=== PATIENT | male | born 1960 | race Caucasian/White ===

== ENCOUNTER 2016-08-16 12:37 | Outpatient (RCR) | payer MEDICAID ==
--- OUTSIDE RECORDS SUMMARY | 2016-05-24 11:21 | XMS REPORT | Continuity of Care Document ---
Author Author [facility] Organization [facility] Address Unknown Phone Unavailable Care Team Providers Care Storage Battery Inspector And Tester Name Role Phone Self, James PCP [phone] Source Comments Some departments are not documenting in the electronic medical record. If you do not see the information that you expected, contact Release of Information in the Health Information Management department at [phone] for further assistance in locating additional records.[facility] Active Allergies and Adverse Reactions Allergen Noted Date Severity Reactions Comments Morphine 09/25/2012 STOMACH UPSET Motrin 04/03/2015 Low NAUSEA ONLY Nitroglycerin 09/25/2012 EDEMA Throat closing Current Medications Prescription Sig. Disp. Refills Start End Date Status Date phenytoin SR (DILANTIN Take 200 mg by mouth Active EXTENDED) 100 mg capsule twice daily. clopiDOGrel (PLAVIX) 75 Take 75 mg by mouth Active mg tablet daily. atorvastatin (LIPITOR) 40 Take 40 mg by mouth Active mg tablet daily. HYDROcodone/acetaminophen Take 1 Tab by mouth every 12/01/19 Active (+) (LORTAB, NORCO) 4 hours as needed For 16 10/325 mg tablet Pain OLANZapine (ZYPREXA) 10 Take 1 Tab by mouth at 30 Tab 11 12/02/19 Active mg tablet bedtime daily. 16 Indications: SCHIZOPHRENIA terbinafine (LAMISIL) 250 Take 250 mg by mouth Active mg tablet daily. CYCLOBENZAPRINE HCL Take by mouth. Active (FLEXERIL PO) Active Problems Problem Noted Date Dysphagia, pharyngoesophageal phase 12/18/2013 Laryngopharyngeal reflux 12/18/2013 Schizophrenia, paranoid type (HCC) 04/21/2013 Seizure disorder (HCC) 04/17/2013 Overview: Follows with neurology Osteopenia 12/17/2012 Congestion 09/25/2012 Chronic sinusitis 09/25/2012 Tinnitus 09/25/2012 Hearing loss 09/25/2012 Most Recent Encounters Date Type Specialty Providers Description 02/25/2016 [facility] Taylor Bender MD Other development expert (current) Encounter drug therapy Social History Tobacco Use Types Packs/Day Years Used Date Current Every Day Smoker Cigarettes 1.5 37 Smokeless Tobacco: Former User Tobacco Cessation: Ready to Quit: Yes; Counseling Given: Yes Comments: Continues 1.5 PPD, is planning on coming down Alcohol Use Drinks/Week oz/Week Comments No 0 Standard 0.0 drinks or equivalent Last Filed Vital Signs Vital Sign Reading Time Taken Blood Pressure 125/79 02/25/2016 11:02 AM CDT Pulse 97 02/25/2016 11:02 AM CDT Temperature 36.3 C (97.3 F) 10/16/2015 1:32 PM AED TRAINER Respiratory Rate 15 02/25/2016 11:02 AM CDT Height 1.829 m (6') 02/25/2016 11:02 AM CDT Weight 60.328 kg (133 lb) 02/25/2016 11:02 AM CDT Body Mass Index 18.03 02/25/2016 11:02 AM CDT Oxygen Saturation 97% 10/16/2015 1:32 PM AED TRAINER Plan of Care Health Maintenance Due Date Last Done Comments Hepatitis C Screening 1960 Physical (Comprehensive) 1968 Exam Pertussis Vaccine 1972 Tetanus Vaccine 1978 Colorectal Cancer 12/08/2011 Screening Influenza Vaccine 04/07/2016 Results from Last 3 Months HEMOGLOBIN A1C (02/25/2016 12:16 PM) Component Value Range Hemoglobin A1C 5.3Comment: 4.0-6.0 % The ADA recommends that most patients with type 1 and type 2 diabetes maintain an A1c level <7%. Specimen Blood LIPID PROFILE (02/25/2016 12:16 PM) Component Value Range Cholesterol 148 <200 MG/DL Triglycerides 164 (H) <150 MG/DL HDL 38 (L) >40 MG/DL LDL 82 <100 MG/DL VLDL 33 MG/DL Non HDL Cholesterol 110Comment: MG/DL Calculated non-HDL Cholesterol (non-HDL-C) indirectly measures LDL-C, Lp(a), IDL-C, and VLDL-C. It is a surrogate marker for Apoprotein B. Non-HDL-C is a more accurate measure of atherogenic particle concentration than LDL-C in patients with hypertriglyceridemia (>200 mg/dL). This calculation is now recommended for evaluation and treatment of coronary heart disease according to the National Cholesterol Education Program Adult Treatment Protocol-III. See Cortez et al. Am J. Cardiol. 2008, 101:8042-5792. The "goal" should be less than 130 mg/dL, but will vary according to risk factors. Specimen Blood
[2016-05-24 11:52] LABS: BASOPHILS % (AUTO) 0 % (0-10); EOSINOPHILS # (AUTO) 0.2 10^3/uL (0.0-0.3); EOSINOPHILS % (AUTO) 2 % (0-10); LYMPHOCYTES # (AUTO) 1.3 X 10^3 (1.0-4.0); LYMPHOCYTES % (AUTO) 14 % (12-44); MEAN CORPUSCULAR HEMOGLOBIN 31 PG (25-34); MEAN CORPUSCULAR HGB CONC 33 G/DL (32-36); MEAN CORPUSCULAR VOLUME 94 FL (80-99); MEAN PLATELET VOLUME 8.5 FL (7.4-10.4); MONOCYTES # (AUTO) 0.8 X 10^3 (0.0-1.0); MONOCYTES % (AUTO) 9 % (0-12); NEUTROPHILS # (AUTO) 6.8 X 10^3 (1.8-7.8); NEUTROPHILS % (AUTO) 75 % (42-75); PLATELET COUNT 339 10^3/uL (130-400); RED BLOOD COUNT 3.61 10^6/uL (4.35-5.85); WHITE BLOOD COUNT 9.1 10^3/uL (4.3-11.0)
[2016-05-24 12:20] LABS: ALANINE AMINOTRANSFERASE 9 U/L (0-55); ALBUMIN 3.7 G/DL (3.2-4.5); ANION GAP 9 MMOL/L (5-14); ASPARTATE AMINO TRANSFERASE 8 U/L (5-34); BILIRUBIN,TOTAL 0.2 MG/DL (0.1-1.0); BLOOD UREA NITROGEN 13 MG/DL (7-18); BUN/CREATININE RATIO 16; CALCIUM 9.2 MG/DL (8.5-10.1); CARBON DIOXIDE 25 MMOL/L (21-32); CHLORIDE 106 MMOL/L (98-107); CREATININE SERUM 0.81 MG/DL (0.60-1.30); GFR ESTIMATED > 60; GLUCOSE 100 MG/DL (70-105); MAGNESIUM 1.9 MG/DL (1.8-2.4); POTASSIUM 4.2 MMOL/L (3.6-5.0); SODIUM 140 MMOL/L (135-145); TOTAL PROTEIN 7.1 G/DL (6.4-8.2)
[2016-05-31 11:55] LABS: BASOPHILS % (AUTO) 0 % (0-10); EOSINOPHILS # (AUTO) 0.1 10^3/uL (0.0-0.3); EOSINOPHILS % (AUTO) 1 % (0-10); LYMPHOCYTES # (AUTO) 0.8 X 10^3 (1.0-4.0); LYMPHOCYTES % (AUTO) 8 % (12-44); MEAN CORPUSCULAR HEMOGLOBIN 31 PG (25-34); MEAN CORPUSCULAR HGB CONC 33 G/DL (32-36); MEAN CORPUSCULAR VOLUME 93 FL (80-99); MEAN PLATELET VOLUME 8.5 FL (7.4-10.4); MONOCYTES # (AUTO) 0.5 X 10^3 (0.0-1.0); MONOCYTES % (AUTO) 5 % (0-12); NEUTROPHILS # (AUTO) 8.5 X 10^3 (1.8-7.8); NEUTROPHILS % (AUTO) 85 % (42-75); PLATELET COUNT 332 10^3/uL (130-400); RED BLOOD COUNT 3.54 10^6/uL (4.35-5.85); RED CELL DISTRIBUTION WIDTH 14.7 % (10.0-14.5); WHITE BLOOD COUNT 9.9 10^3/uL (4.3-11.0)
[2016-05-31 12:19] LABS: ANION GAP 9 MMOL/L (5-14); BLOOD UREA NITROGEN 10 MG/DL (7-18); BUN/CREATININE RATIO 14; CALCIUM 8.5 MG/DL (8.5-10.1); CARBON DIOXIDE 24 MMOL/L (21-32); CHLORIDE 105 MMOL/L (98-107); CREATININE SERUM 0.69 MG/DL (0.60-1.30); GFR ESTIMATED > 60; GLUCOSE 159 MG/DL (70-105); MAGNESIUM 1.8 MG/DL (1.8-2.4); POTASSIUM 3.7 MMOL/L (3.6-5.0); SODIUM 138 MMOL/L (135-145)
[2016-06-07 13:05] LABS: BASOPHILS % (AUTO) 1 % (0-10); EOSINOPHILS # (AUTO) 0.2 10^3/uL (0.0-0.3); EOSINOPHILS % (AUTO) 4 % (0-10); LYMPHOCYTES # (AUTO) 1.5 X 10^3 (1.0-4.0); LYMPHOCYTES % (AUTO) 25 % (12-44); MEAN CORPUSCULAR HEMOGLOBIN 31 PG (25-34); MEAN CORPUSCULAR HGB CONC 34 G/DL (32-36); MEAN CORPUSCULAR VOLUME 92 FL (80-99); MEAN PLATELET VOLUME 8.1 FL (7.4-10.4); MONOCYTES # (AUTO) 0.7 X 10^3 (0.0-1.0); MONOCYTES % (AUTO) 11 % (0-12); NEUTROPHILS # (AUTO) 3.5 X 10^3 (1.8-7.8); NEUTROPHILS % (AUTO) 59 % (42-75); PLATELET COUNT 424 10^3/uL (130-400); RED BLOOD COUNT 3.35 10^6/uL (4.35-5.85); RED CELL DISTRIBUTION WIDTH 14.2 % (10.0-14.5); WHITE BLOOD COUNT 5.9 10^3/uL (4.3-11.0)
[2016-06-07 13:38] LABS: ANION GAP 10 MMOL/L (5-14); BLOOD UREA NITROGEN 10 MG/DL (7-18); BUN/CREATININE RATIO 17; CALCIUM 8.6 MG/DL (8.5-10.1); CARBON DIOXIDE 23 MMOL/L (21-32); CHLORIDE 106 MMOL/L (98-107); CREATININE SERUM 0.59 MG/DL (0.60-1.30); GFR ESTIMATED > 60; GLUCOSE 73 MG/DL (70-105); POTASSIUM 3.5 MMOL/L (3.6-5.0); SODIUM 139 MMOL/L (135-145)
[2016-06-14 13:35] LABS: BASOPHILS % (AUTO) 0 % (0-10); EOSINOPHILS # (AUTO) 0.2 10^3/uL (0.0-0.3); EOSINOPHILS % (AUTO) 3 % (0-10); LYMPHOCYTES # (AUTO) 1.2 X 10^3 (1.0-4.0); LYMPHOCYTES % (AUTO) 17 % (12-44); MEAN CORPUSCULAR HEMOGLOBIN 30 PG (25-34); MEAN CORPUSCULAR HGB CONC 33 G/DL (32-36); MEAN CORPUSCULAR VOLUME 92 FL (80-99); MONOCYTES # (AUTO) 0.6 X 10^3 (0.0-1.0); MONOCYTES % (AUTO) 8 % (0-12); NEUTROPHILS % (AUTO) 71 % (42-75); PLATELET COUNT 460 10^3/uL (130-400); RED BLOOD COUNT 3.63 10^6/uL (4.35-5.85); RED CELL DISTRIBUTION WIDTH 14.5 % (10.0-14.5); WHITE BLOOD COUNT 6.9 10^3/uL (4.3-11.0)
[2016-06-14 14:02] LABS: ANION GAP 11 MMOL/L (5-14); BLOOD UREA NITROGEN 12 MG/DL (7-18); BUN/CREATININE RATIO 17; CALCIUM 8.8 MG/DL (8.5-10.1); CARBON DIOXIDE 21 MMOL/L (21-32); CHLORIDE 104 MMOL/L (98-107); CREATININE SERUM 0.69 MG/DL (0.60-1.30); GFR ESTIMATED > 60; GLUCOSE 166 MG/DL (70-105); POTASSIUM 3.7 MMOL/L (3.6-5.0); SODIUM 136 MMOL/L (135-145)
[2016-06-28 10:30] LABS: BASOPHILS % (AUTO) 1 % (0-10); EOSINOPHILS # (AUTO) 0.1 10^3/uL (0.0-0.3); EOSINOPHILS % (AUTO) 2 % (0-10); LYMPHOCYTES # (AUTO) 0.9 X 10^3 (1.0-4.0); LYMPHOCYTES % (AUTO) 16 % (12-44); MEAN CORPUSCULAR HEMOGLOBIN 30 PG (25-34); MEAN CORPUSCULAR HGB CONC 33 G/DL (32-36); MEAN CORPUSCULAR VOLUME 93 FL (80-99); MONOCYTES % (AUTO) 17 % (0-12); NEUTROPHILS # (AUTO) 3.8 X 10^3 (1.8-7.8); NEUTROPHILS % (AUTO) 65 % (42-75); PLATELET COUNT 319 10^3/uL (130-400); RED BLOOD COUNT 3.78 10^6/uL (4.35-5.85); RED CELL DISTRIBUTION WIDTH 14.9 % (10.0-14.5); WHITE BLOOD COUNT 5.8 10^3/uL (4.3-11.0)
[2016-06-28 10:53] LABS: ALANINE AMINOTRANSFERASE 8 U/L (0-55); ALBUMIN 3.8 G/DL (3.2-4.5); ANION GAP 6 MMOL/L (5-14); ASPARTATE AMINO TRANSFERASE 13 U/L (5-34); BILIRUBIN,TOTAL 0.2 MG/DL (0.1-1.0); BLOOD UREA NITROGEN 12 MG/DL (7-18); BUN/CREATININE RATIO 17; CALCIUM 9.1 MG/DL (8.5-10.1); CARBON DIOXIDE 26 MMOL/L (21-32); CHLORIDE 105 MMOL/L (98-107); CREATININE SERUM 0.69 MG/DL (0.60-1.30); GFR ESTIMATED > 60; GLUCOSE 96 MG/DL (70-105); MAGNESIUM 1.9 MG/DL (1.8-2.4); POTASSIUM 4.5 MMOL/L (3.6-5.0); SODIUM 137 MMOL/L (135-145); TOTAL PROTEIN 6.7 G/DL (6.4-8.2)
[2016-07-11 13:20] LABS: BASOPHILS # (AUTO) 0.1 10^3/uL (0.0-0.1); BASOPHILS % (AUTO) 1 % (0-10); EOSINOPHILS # (AUTO) 0.4 10^3/uL (0.0-0.3); EOSINOPHILS % (AUTO) 5 % (0-10); LYMPHOCYTES # (AUTO) 1.4 X 10^3 (1.0-4.0); LYMPHOCYTES % (AUTO) 17 % (12-44); MEAN CORPUSCULAR HEMOGLOBIN 31 PG (25-34); MEAN CORPUSCULAR HGB CONC 33 G/DL (32-36); MEAN CORPUSCULAR VOLUME 91 FL (80-99); MONOCYTES % (AUTO) 12 % (0-12); NEUTROPHILS # (AUTO) 5.6 X 10^3 (1.8-7.8); NEUTROPHILS % (AUTO) 67 % (42-75); PLATELET COUNT 287 10^3/uL (130-400); RED BLOOD COUNT 3.83 10^6/uL (4.35-5.85); WHITE BLOOD COUNT 8.4 10^3/uL (4.3-11.0)
[2016-07-11 13:43] LABS: ALANINE AMINOTRANSFERASE 10 U/L (0-55); ALBUMIN 3.6 G/DL (3.2-4.5); ANION GAP 9 MMOL/L (5-14); ASPARTATE AMINO TRANSFERASE 16 U/L (5-34); BLOOD UREA NITROGEN 12 MG/DL (7-18); BUN/CREATININE RATIO 18; CALCIUM 8.7 MG/DL (8.5-10.1); CARBON DIOXIDE 22 MMOL/L (21-32); CHLORIDE 109 MMOL/L (98-107); CREATININE SERUM 0.68 MG/DL (0.60-1.30); GFR ESTIMATED > 60; GLUCOSE 99 MG/DL (70-105); MAGNESIUM 1.9 MG/DL (1.8-2.4); POTASSIUM 4.2 MMOL/L (3.6-5.0); SODIUM 140 MMOL/L (135-145); TOTAL PROTEIN 6.6 G/DL (6.4-8.2)
[2016-07-11 14:33] LABS: BILIRUBIN,TOTAL 0.2 MG/DL (0.1-1.0)
[2016-07-18 13:34] LABS: BASOPHILS % (AUTO) 0 % (0-10); EOSINOPHILS # (AUTO) 0.3 10^3/uL (0.0-0.3); EOSINOPHILS % (AUTO) 4 % (0-10); LYMPHOCYTES # (AUTO) 1.1 X 10^3 (1.0-4.0); LYMPHOCYTES % (AUTO) 14 % (12-44); MEAN CORPUSCULAR HEMOGLOBIN 31 PG (25-34); MEAN CORPUSCULAR HGB CONC 34 G/DL (32-36); MEAN CORPUSCULAR VOLUME 92 FL (80-99); MONOCYTES # (AUTO) 0.8 X 10^3 (0.0-1.0); MONOCYTES % (AUTO) 10 % (0-12); NEUTROPHILS # (AUTO) 5.7 X 10^3 (1.8-7.8); NEUTROPHILS % (AUTO) 72 % (42-75); PLATELET COUNT 303 10^3/uL (130-400); RED BLOOD COUNT 3.63 10^6/uL (4.35-5.85); WHITE BLOOD COUNT 7.9 10^3/uL (4.3-11.0)
[2016-07-18 13:58] LABS: ANION GAP 9 MMOL/L (5-14); BLOOD UREA NITROGEN 16 MG/DL (7-18); BUN/CREATININE RATIO 24; CALCIUM 8.8 MG/DL (8.5-10.1); CARBON DIOXIDE 22 MMOL/L (21-32); CHLORIDE 106 MMOL/L (98-107); CREATININE SERUM 0.68 MG/DL (0.60-1.30); GFR ESTIMATED > 60; GLUCOSE 92 MG/DL (70-105); SODIUM 137 MMOL/L (135-145)
[2016-07-25 11:11] LABS: BASOPHILS % (AUTO) 1 % (0-10); EOSINOPHILS # (AUTO) 0.3 10^3/uL (0.0-0.3); EOSINOPHILS % (AUTO) 4 % (0-10); LYMPHOCYTES # (AUTO) 1.2 X 10^3 (1.0-4.0); LYMPHOCYTES % (AUTO) 19 % (12-44); MEAN CORPUSCULAR HEMOGLOBIN 30 PG (25-34); MEAN CORPUSCULAR HGB CONC 33 G/DL (32-36); MEAN CORPUSCULAR VOLUME 91 FL (80-99); MEAN PLATELET VOLUME 8.2 FL (7.4-10.4); MONOCYTES # (AUTO) 0.8 X 10^3 (0.0-1.0); MONOCYTES % (AUTO) 13 % (0-12); NEUTROPHILS % (AUTO) 63 % (42-75); PLATELET COUNT 355 10^3/uL (130-400); RED BLOOD COUNT 3.44 10^6/uL (4.35-5.85); RED CELL DISTRIBUTION WIDTH 13.8 % (10.0-14.5); WHITE BLOOD COUNT 6.3 10^3/uL (4.3-11.0)
[2016-07-25 11:34] LABS: ANION GAP 7 MMOL/L (5-14); BLOOD UREA NITROGEN 7 MG/DL (7-18); BUN/CREATININE RATIO 10; CALCIUM 8.2 MG/DL (8.5-10.1); CARBON DIOXIDE 23 MMOL/L (21-32); CHLORIDE 109 MMOL/L (98-107); CREATININE SERUM 0.71 MG/DL (0.60-1.30); GFR ESTIMATED > 60; GLUCOSE 94 MG/DL (70-105); SODIUM 139 MMOL/L (135-145)
[2016-08-09 11:14] LABS: BASOPHILS % (AUTO) 0 % (0-10); EOSINOPHILS # (AUTO) 0.2 10^3/uL (0.0-0.3); EOSINOPHILS % (AUTO) 3 % (0-10); LYMPHOCYTES # (AUTO) 1.3 X 10^3 (1.0-4.0); LYMPHOCYTES % (AUTO) 21 % (12-44); MEAN CORPUSCULAR HEMOGLOBIN 30 PG (25-34); MEAN CORPUSCULAR HGB CONC 33 G/DL (32-36); MEAN CORPUSCULAR VOLUME 91 FL (80-99); MEAN PLATELET VOLUME 8.2 FL (7.4-10.4); MONOCYTES # (AUTO) 0.9 X 10^3 (0.0-1.0); MONOCYTES % (AUTO) 14 % (0-12); NEUTROPHILS # (AUTO) 3.9 X 10^3 (1.8-7.8); NEUTROPHILS % (AUTO) 62 % (42-75); PLATELET COUNT 399 10^3/uL (130-400); RED BLOOD COUNT 4.06 10^6/uL (4.35-5.85); RED CELL DISTRIBUTION WIDTH 14.9 % (10.0-14.5); WHITE BLOOD COUNT 6.2 10^3/uL (4.3-11.0)
[2016-08-09 11:47] LABS: ALANINE AMINOTRANSFERASE 10 U/L (0-55); ALBUMIN 3.7 G/DL (3.2-4.5); ANION GAP 12 MMOL/L (5-14); ASPARTATE AMINO TRANSFERASE 12 U/L (5-34); BILIRUBIN,TOTAL 0.2 MG/DL (0.1-1.0); BLOOD UREA NITROGEN 6 MG/DL (7-18); BUN/CREATININE RATIO 8; CALCIUM 8.4 MG/DL (8.5-10.1); CARBON DIOXIDE 20 MMOL/L (21-32); CHLORIDE 108 MMOL/L (98-107); CREATININE SERUM 0.74 MG/DL (0.60-1.30); GFR ESTIMATED > 60; GLUCOSE 75 MG/DL (70-105); MAGNESIUM 1.8 MG/DL (1.8-2.4); POTASSIUM 3.7 MMOL/L (3.6-5.0); SODIUM 140 MMOL/L (135-145); TOTAL PROTEIN 6.9 G/DL (6.4-8.2)
[~2016-08-16] VITALS: Ht 177.8 cm; Wt 54.9 kg
[~2016-08-16 12:37] MED LIST: CARBOPLATIN IV SCH; D5W IV SCH; FAMOTIDINE 20MG/2ML IV (CANCER CTR) IV SCH; NORMAL SALINE IV SCH; NS IV 500 ML (CANCER CENTER) IV SCH; ONDANSETRON 16 MG, DEXAMETHASONE 10 MG/NS 50 ML IVPB IV SCH; PACLITAXEL SEMI SYNTHETIC IV SCH; diphenhydrAMINE 25 MG TAB (BENADRYL) CANCER CENTER PO SCH; diphenhydrAMINE 50 MG/ML INJ (CANCER CENTER) ONE
[2016-08-16 13:04] LABS: BASOPHILS % (AUTO) 1 % (0-10); EOSINOPHILS # (AUTO) 0.1 10^3/uL (0.0-0.3); EOSINOPHILS % (AUTO) 3 % (0-10); LYMPHOCYTES # (AUTO) 1.3 X 10^3 (1.0-4.0); LYMPHOCYTES % (AUTO) 28 % (12-44); MEAN CORPUSCULAR HEMOGLOBIN 30 PG (25-34); MEAN CORPUSCULAR HGB CONC 34 G/DL (32-36); MEAN CORPUSCULAR VOLUME 91 FL (80-99); MEAN PLATELET VOLUME 8.3 FL (7.4-10.4); MONOCYTES # (AUTO) 0.4 X 10^3 (0.0-1.0); MONOCYTES % (AUTO) 8 % (0-12); NEUTROPHILS # (AUTO) 2.9 X 10^3 (1.8-7.8); NEUTROPHILS % (AUTO) 61 % (42-75); PLATELET COUNT 359 10^3/uL (130-400); RED BLOOD COUNT 3.98 10^6/uL (4.35-5.85); RED CELL DISTRIBUTION WIDTH 14.9 % (10.0-14.5); WHITE BLOOD COUNT 4.8 10^3/uL (4.3-11.0)
[2016-08-16 13:26] LABS: ANION GAP 9 MMOL/L (5-14); BLOOD UREA NITROGEN 7 MG/DL (7-18); BUN/CREATININE RATIO 10; CALCIUM 8.3 MG/DL (8.5-10.1); CARBON DIOXIDE 22 MMOL/L (21-32); CHLORIDE 107 MMOL/L (98-107); CREATININE SERUM 0.73 MG/DL (0.60-1.30); GFR ESTIMATED > 60; GLUCOSE 91 MG/DL (70-105); SODIUM 138 MMOL/L (135-145)
== END 2016-08-22 | disposition home or self-care (01) ==
LOC: ONC 12:37
PROVIDERS: ATTEND Internal Medicine Hematology & Oncology
DX: Z51.11 Encounter for antineoplastic chemotherapy (principal); C34.11 Malignant neoplasm of upper lobe, right bronchus or lung; F17.210 Nicotine dependence, cigarettes, uncomplicated; R63.4 Abnormal weight loss; I73.89 Other specified peripheral vascular diseases; I25.10 Atherosclerotic heart disease of native coronary artery without angina pectoris; I25.2 Old myocardial infarction; G40.909 Epilepsy, unspecified, not intractable, without status epilepticus; Z79.899 Other long term (current) drug therapy
CPT/HCPCS: 36415; 36591; 80048; 80053; 83735; 85025; 96375; 96413; 96417; 99213

== ENCOUNTER → 2016-08-29 | Outpatient (CLI) | payer MEDICAID ==
[~2016-08-29] MED LIST changes: +BARIUM SUSPENSION 2.1% (VANILLA SILQ) 450 ML PO ONE; -CARBOPLATIN IV SCH; +CATHETER FLUSH 10 ML SYR IV PRN; -D5W IV SCH; -FAMOTIDINE 20MG/2ML IV (CANCER CTR) IV SCH; +IOHEXOL 350 MG/ML 100 ML (OMNIPAQUE 350) VIAL IV ONE; -NORMAL SALINE IV SCH; +NS 100 ML (IVPB) BAG IV ONE; -NS IV 500 ML (CANCER CENTER) IV SCH; -ONDANSETRON 16 MG, DEXAMETHASONE 10 MG/NS 50 ML IVPB IV SCH; -PACLITAXEL SEMI SYNTHETIC IV SCH; -diphenhydrAMINE 25 MG TAB (BENADRYL) CANCER CENTER PO SCH; -diphenhydrAMINE 50 MG/ML INJ (CANCER CENTER) ONE
--- OUTSIDE RECORDS SUMMARY | 2016-08-29 12:57 | XMS REPORT | Continuity of Care Document ---
Author Author [facility] Organization [facility] Address Unknown Phone Unavailable Care Team Providers Care Pillow Cleaner Name Role Phone Self, James PCP [phone] Source Comments Some departments are not documenting in the electronic medical record. If you do not see the information that you expected, contact Release of Information in the Health Information Management department at [phone] for further assistance in locating additional records.[facility] Active Allergies and Adverse Reactions Allergen Noted [...] 36.3 C (97.3 F) 10/16/2015 1:32 PM HOME VISITS NURSE Respiratory Rate 15 02/25/2016 11:02 AM CDT Height 1.829 m (6') 02/25/2016 11:02 AM CDT Weight 60.328 kg (133 lb) 02/25/2016 11:02 AM CDT Body Mass Index 18.03 02/25/2016 11:02 AM CDT Oxygen Saturation 97% 10/16/2015 1:32 PM HOME VISITS NURSE Plan of Care Health Maintenance Due Date Last Done Comments Hepatitis C Screening 1960 Physical (Comprehensive) 1968 Exam Pertussis Vaccine 1972 Tetanus Vaccine 1978 Colorectal Cancer 12/08/2011 Screening Influenza Vaccine 04/07/2016 Results from Last 3 Months Not on file
--- NOTE | 2016-08-29 14:34 | Diagnostic Imaging Report ---
PROCEDURE: CT chest, abdomen, and pelvis with contrast. TECHNIQUE: Multiple contiguous axial images were obtained through the chest, abdomen, and pelvis after the administration of intravenous contrast. INDICATION: This patient has a history of metastatic lung cancer to the brain. COMPARISON: I have no priors. FINDINGS: CHEST: There is an indistinctly marginated solid irregular spiculated mass in the right upper lobe measuring 3.9 x 3.6 cm very suggestive of primary carcinoma. There was no other suspicious lung mass. There is a benign calcified granuloma in the lingular segment of the left upper lobe. There are subcentimeter low density nodules in the thyroid lobes right greater than left, indeterminate. There is a right paratracheal superior mediastinal node 1.6 cm. There is a pretracheal node with central intratumoral necrosis at the level of the alexander measuring 2.1 cm. There is an irregular appearing right superior pulmonary hilar node measuring 1.3 cm. Some abnormal tissue in the subcarinal mediastinum separable from the thoracic esophagus measuring 2.2 x 1.2 cm. Small node in the right pulmonary hilum posteriorly measures 1.1 cm. There is no thoracic effusion and no suspicious osseous pathology. Lungs showed features of COPD. ABDOMEN: There is questionable tiny subcentimeter nodule in the left adrenal at its isthmus measuring 3-4 mm. Splenic granulomata, calcified and benign. The liver was unremarkable. The right adrenal is negative. The pancreas is unremarkable. There is an exophytic right renal cortical cyst, simple and benign. The [place] aorta is occluded as is the stented [place] right common and external iliac. The bypass was patent within the abdomen and pelvis but at the level of the proximal SFA where there is vascular clips, there is stenosis of greater than 80%. There is no abdominal, pelvic, mesenteric or retroperitoneal lymphadenopathy. No suspicious or destructive osseous lesion. There is no ascites, abscess or fluid collection. There is no bowel, biliary or urinary tract obstruction. IMPRESSION: 1. Spiculated right upper lobe mass very suggestive of carcinoma. Abnormal appearing prominent mediastinal lymph nodes very likely metastatic. Underlying COPD noted. No chest wall pathology. 2. There were no findings of abdominopelvic metastasis. Atherosclerotic disease and vascular surgical changes as described. No adenopathy or mass. 3. Questionable findings of hypodense developing nodule in the left adrenal of the isthmus is only 3-4 mm. This is a borderline finding. Dictated by: Dictated on workstation # [id number]
== END ==
LOC: RAD 12:53
PROVIDERS: ATTEND Internal Medicine Hematology & Oncology
DX: C34.11 Malignant neoplasm of upper lobe, right bronchus or lung (principal); C79.31 Secondary malignant neoplasm of brain
CPT/HCPCS: 71260; 74177

== ENCOUNTER → 2016-10-27 | Outpatient (CLI) | payer MEDICAID ==
--- NOTE | 2016-10-27 15:16 | Diagnostic Imaging Report ---
PROCEDURE: CT chest, abdomen, and pelvis with contrast. TECHNIQUE: Multiple contiguous axial images were obtained through the chest, abdomen, and pelvis after the administration of intravenous contrast. INDICATION: Metastatic lung cancer. CONTRAST: 100 mL of Omnipaque 350 is administered intravenously. COMPARISON: 08/29/2016. FINDINGS: CT chest: There is a right upper lobe spiculated mass measuring 3.4 x 3.5 cm. This is compared to prior measurements of 3.8 x 3.7 cm. The craniocaudal measurement is 3.2 cm compared to 3.3 cm on the prior study. There is also interval decrease in size of previously seen precarinal lymph node measuring 1.5 cm in short axis compared to 1.8 cm on the previous exam. The right hilar lymph node measuring 1.1 cm is stable. Another right paratracheal lymph node is also slightly smaller measuring 1 cm in short axis compared to 1.3 cm previously. There is an infracarinal lymph node measuring 1.2 cm, stable from the previous exam. There is no new pulmonary nodule or lymphadenopathy identified. Background emphysema changes and evidence of prior granulomatous process is seen. The heart size is normal. No pericardial or pleural effusion. The osseous structures appear grossly unremarkable. CT abdomen and pelvis: The liver, the gallbladder, the adrenals, and the pancreas appear unremarkable. The spleen is not enlarged with multiple calcified granulomas. Previously seen 4 mm hypodense lesion in the left adrenal gland is indeterminate and appears unchanged. The kidneys have symmetric enhancement and contrast excretion. There is a simple cyst, partially exophytic from the right kidney. No hydronephrosis. There is no bowel obstruction. There is a colostomy in the left lower quadrant. There is an aortobifemoral bypass. Occluded common iliac stents are seen. No para-aortic significantly enlarged lymph nodes are seen. There is a mild compression fracture of L3 vertebral body with chronic appearance. No suspicious or destructive osseous mass is identified. IMPRESSION: CT chest: 1. There is slight decrease in the size of the right upper lobe mass and mediastinal lymph nodes. 2. Stable 1.1 cm right hilar lymph node and mildly enlarged infracarinal lymph node seen. 3. Emphysema. CT abdomen and pelvis: Stable indeterminate 4 mm hypodense nodule in the left adrenal gland of uncertain significance. No definite evidence of metastasis in the abdomen or pelvis. Dictated by: Dictated on workstation # [id number]
== END ==
LOC: RAD 14:20
PROVIDERS: ATTEND Internal Medicine Hematology & Oncology
DX: C34.11 Malignant neoplasm of upper lobe, right bronchus or lung (principal); C79.31 Secondary malignant neoplasm of brain; Z72.0 Tobacco use
CPT/HCPCS: 71260; 74177

== ENCOUNTER → 2016-11-07 | Outpatient (CLI) | payer MEDICAID ==
[~2016-11-07] MED LIST changes: -BARIUM SUSPENSION 2.1% (VANILLA SILQ) 450 ML PO ONE; -CATHETER FLUSH 10 ML SYR IV PRN; +GADOBUTROL 7.5 MMOL/7.5 ML (GADAVIST) VIAL IV ONE; -IOHEXOL 350 MG/ML 100 ML (OMNIPAQUE 350) VIAL IV ONE; -NS 100 ML (IVPB) BAG IV ONE
--- NOTE | 2016-11-07 15:37 | Diagnostic Imaging Report ---
PROCEDURE: MR imaging of the brain with and without contrast. TECHNIQUE: Multiplanar, multisequence MR imaging of the brain was performed with and without contrast. INDICATION: Lung cancer. COMPARISON: There are no previous studies available for comparison. FINDINGS: On the postcontrast series, there is a fairly well-defined 7.6 x 9.9 mm enhancing nodule along the posterior aspect of the left sylvian fissure. There does seem to be a fair amount of associated vasogenic edema with this finding on the FLAIR series and most likely this enhancing nodule is neoplastic in nature. There is no other abnormal enhancement involving the brain parenchyma to suggest metastatic disease. However, there is an asymmetric area of enhancement about the midportion of the inferior rectus muscle on the left. This finding is of uncertain etiology. It is possible that this could be secondary to neoplastic involvement although focal inflammation of this portion of the muscle could also present in this manner. Correlation with the patient's ophthalmologic exam would be recommended. The other extraocular muscles are unremarkable as are the globes. There is no abnormal signal arising from the brain on the diffusion series to indicate an area of acute ischemia. The ventricles are not abnormally dilated. There are focal and diffuse areas of increased signal in the periventricular white matter bilaterally on the FLAIR series. These are nonspecific and may be secondary to encephalomalacia from microvascular ischemia. The sella is not enlarged and the expected carotid flow voids are evident bilaterally. There is at least moderate bilateral maxillary sinusitis. There is also fluid in both mastoid air cells. This may be secondary to mastoiditis either chronic or acute. Seventh and eighth nerve complexes are unremarkable. IMPRESSION: 1. There is a roughly 1 cm area of abnormal enhancement along the posterior margin of the left sylvian fissure. There is also associated vasogenic edema and this finding should be considered secondary to neoplastic disease until proven otherwise. 2. There is no other abnormal enhancement of the intracranial contents. However, there is slight enhancement of the midportion of the inferior rectus muscle on the left. Whether this is secondary to a focal inflammatory/infectious process or to neoplastic involvement of this portion of the muscle is not certain. 3. There is no acute intracranial abnormality noted. 4. There is bilateral maxillary sinusitis and bilateral mastoiditis. Dictated by: Dictated on workstation # [id number]
== END ==
LOC: RAD 13:25
PROVIDERS: ATTEND Internal Medicine Hematology & Oncology
DX: C79.31 Secondary malignant neoplasm of brain (principal); C34.11 Malignant neoplasm of upper lobe, right bronchus or lung
CPT/HCPCS: 70553

== ENCOUNTER 2016-11-15 12:58 | Outpatient (RCR) | payer MEDICAID ==
--- OUTSIDE RECORDS SUMMARY | 2016-08-23 12:55 | XMS REPORT | Continuity of Care Document ---
Author Author [facility] Organization [facility] Address Unknown Phone Unavailable Care Team Providers Care Yarn Salvager Name Role Phone Self, James PCP [phone] Source Comments Some departments are not documenting in the electronic medical record. If you do not see the information that you expected, contact Release of Information in the Health Information Management department at [phone] for further assistance in locating additional records.[facility] Active Allergies and Adverse Reactions Allergen [...] sinusitis 09/25/2012 Tinnitus 09/25/2012 Hearing loss 09/25/2012 Social History Tobacco Use Types Packs/Day Years [...] 36.3 C (97.3 F) 10/16/2015 1:32 PM NETWORK SECURITY ADMINISTRATOR Respiratory Rate 15 02/25/2016 11:02 AM CDT Height 1.829 m (6') 02/25/2016 11:02 AM CDT Weight 60.328 kg (133 lb) 02/25/2016 11:02 AM CDT Body Mass Index 18.03 02/25/2016 11:02 AM CDT Oxygen Saturation 97% 10/16/2015 1:32 PM NETWORK SECURITY ADMINISTRATOR Plan of Care Health Maintenance Due Date Last Done Comments Hepatitis C Screening 1960 Physical (Comprehensive) 1968 Exam Pertussis Vaccine 1972 Tetanus Vaccine 1978 Colorectal Cancer 12/08/2011 Screening Influenza Vaccine 04/07/2016 Results from Last 3 Months Not on file
[2016-08-23 13:19] LABS: BASOPHILS % (AUTO) 0 % (0-10); EOSINOPHILS # (AUTO) 0.1 10^3/uL (0.0-0.3); EOSINOPHILS % (AUTO) 2 % (0-10); LYMPHOCYTES # (AUTO) 1.2 X 10^3 (1.0-4.0); LYMPHOCYTES % (AUTO) 17 % (12-44); MEAN CORPUSCULAR HEMOGLOBIN 31 PG (25-34); MEAN CORPUSCULAR HGB CONC 34 G/DL (32-36); MEAN CORPUSCULAR VOLUME 90 FL (80-99); MEAN PLATELET VOLUME 8.4 FL (7.4-10.4); MONOCYTES # (AUTO) 0.5 X 10^3 (0.0-1.0); MONOCYTES % (AUTO) 7 % (0-12); NEUTROPHILS # (AUTO) 5.2 X 10^3 (1.8-7.8); NEUTROPHILS % (AUTO) 74 % (42-75); PLATELET COUNT 322 10^3/uL (130-400); RED BLOOD COUNT 4.12 10^6/uL (4.35-5.85); RED CELL DISTRIBUTION WIDTH 15.3 % (10.0-14.5); WHITE BLOOD COUNT 7.1 10^3/uL (4.3-11.0)
[2016-08-23 13:43] LABS: ANION GAP 10 MMOL/L (5-14); BLOOD UREA NITROGEN 6 MG/DL (7-18); BUN/CREATININE RATIO 8; CALCIUM 8.3 MG/DL (8.5-10.1); CARBON DIOXIDE 20 MMOL/L (21-32); CHLORIDE 106 MMOL/L (98-107); CREATININE SERUM 0.72 MG/DL (0.60-1.30); GFR ESTIMATED > 60; GLUCOSE 104 MG/DL (70-105); POTASSIUM 3.7 MMOL/L (3.6-5.0); SODIUM 136 MMOL/L (135-145)
[2016-08-29 14:08] LABS: BASOPHILS % (AUTO) 1 % (0-10); EOSINOPHILS # (AUTO) 0.1 10^3/uL (0.0-0.3); EOSINOPHILS % (AUTO) 2 % (0-10); LYMPHOCYTES # (AUTO) 1.2 X 10^3 (1.0-4.0); LYMPHOCYTES % (AUTO) 24 % (12-44); MEAN CORPUSCULAR HEMOGLOBIN 31 PG (25-34); MEAN CORPUSCULAR HGB CONC 34 G/DL (32-36); MEAN CORPUSCULAR VOLUME 90 FL (80-99); MONOCYTES # (AUTO) 0.3 X 10^3 (0.0-1.0); MONOCYTES % (AUTO) 6 % (0-12); NEUTROPHILS # (AUTO) 3.4 X 10^3 (1.8-7.8); NEUTROPHILS % (AUTO) 68 % (42-75); PLATELET COUNT 325 10^3/uL (130-400); RED CELL DISTRIBUTION WIDTH 15.7 % (10.0-14.5); WHITE BLOOD COUNT 5.1 10^3/uL (4.3-11.0)
[2016-08-29 15:02] LABS: ANION GAP 9 MMOL/L (5-14); BLOOD UREA NITROGEN 7 MG/DL (7-18); BUN/CREATININE RATIO 8; CALCIUM 8.7 MG/DL (8.5-10.1); CARBON DIOXIDE 22 MMOL/L (21-32); CHLORIDE 100 MMOL/L (98-107); CREATININE SERUM 0.86 MG/DL (0.60-1.30); GFR ESTIMATED > 60; GLUCOSE 73 MG/DL (70-105); POTASSIUM 4.1 MMOL/L (3.6-5.0); SODIUM 131 MMOL/L (135-145)
[2016-09-06 13:42] LABS: BASOPHILS % (AUTO) 1 % (0-10); EOSINOPHILS # (AUTO) 0.1 10^3/uL (0.0-0.3); EOSINOPHILS % (AUTO) 2 % (0-10); LYMPHOCYTES # (AUTO) 1.4 X 10^3 (1.0-4.0); LYMPHOCYTES % (AUTO) 25 % (12-44); MEAN CORPUSCULAR HEMOGLOBIN 31 PG (25-34); MEAN CORPUSCULAR HGB CONC 34 G/DL (32-36); MEAN CORPUSCULAR VOLUME 91 FL (80-99); MEAN PLATELET VOLUME 8.2 FL (7.4-10.4); MONOCYTES # (AUTO) 0.7 X 10^3 (0.0-1.0); MONOCYTES % (AUTO) 12 % (0-12); NEUTROPHILS # (AUTO) 3.4 X 10^3 (1.8-7.8); NEUTROPHILS % (AUTO) 60 % (42-75); PLATELET COUNT 245 10^3/uL (130-400); RED BLOOD COUNT 4.01 10^6/uL (4.35-5.85); RED CELL DISTRIBUTION WIDTH 16.8 % (10.0-14.5); WHITE BLOOD COUNT 5.7 10^3/uL (4.3-11.0)
[2016-09-06 14:07] LABS: ALANINE AMINOTRANSFERASE 10 U/L (0-55); ALBUMIN 3.8 G/DL (3.2-4.5); ANION GAP 9 MMOL/L (5-14); ASPARTATE AMINO TRANSFERASE 12 U/L (5-34); BILIRUBIN,TOTAL 0.2 MG/DL (0.1-1.0); BLOOD UREA NITROGEN 5 MG/DL (7-18); BUN/CREATININE RATIO 7; CALCIUM 8.3 MG/DL (8.5-10.1); CARBON DIOXIDE 23 MMOL/L (21-32); CHLORIDE 105 MMOL/L (98-107); CREATININE SERUM 0.74 MG/DL (0.60-1.30); GFR ESTIMATED > 60; GLUCOSE 82 MG/DL (70-105); POTASSIUM 3.9 MMOL/L (3.6-5.0); SODIUM 137 MMOL/L (135-145); TOTAL PROTEIN 6.7 G/DL (6.4-8.2)
[2016-09-13 13:32] LABS: BASOPHILS % (AUTO) 1 % (0-10); EOSINOPHILS # (AUTO) 0.2 10^3/uL (0.0-0.3); EOSINOPHILS % (AUTO) 4 % (0-10); LYMPHOCYTES # (AUTO) 1.5 X 10^3 (1.0-4.0); LYMPHOCYTES % (AUTO) 29 % (12-44); MEAN CORPUSCULAR HEMOGLOBIN 32 PG (25-34); MEAN CORPUSCULAR HGB CONC 35 G/DL (32-36); MEAN CORPUSCULAR VOLUME 92 FL (80-99); MEAN PLATELET VOLUME 8.2 FL (7.4-10.4); MONOCYTES # (AUTO) 0.5 X 10^3 (0.0-1.0); MONOCYTES % (AUTO) 10 % (0-12); NEUTROPHILS # (AUTO) 2.9 X 10^3 (1.8-7.8); NEUTROPHILS % (AUTO) 57 % (42-75); PLATELET COUNT 260 10^3/uL (130-400); RED BLOOD COUNT 3.89 10^6/uL (4.35-5.85); RED CELL DISTRIBUTION WIDTH 16.8 % (10.0-14.5); WHITE BLOOD COUNT 5.1 10^3/uL (4.3-11.0)
[2016-09-13 13:55] LABS: ANION GAP 5 MMOL/L (5-14); BLOOD UREA NITROGEN 9 MG/DL (7-18); BUN/CREATININE RATIO 12; CALCIUM 8.5 MG/DL (8.5-10.1); CARBON DIOXIDE 26 MMOL/L (21-32); CHLORIDE 102 MMOL/L (98-107); CREATININE SERUM 0.76 MG/DL (0.60-1.30); GFR ESTIMATED > 60; GLUCOSE 99 MG/DL (70-105); POTASSIUM 4.2 MMOL/L (3.6-5.0); SODIUM 133 MMOL/L (135-145)
[2016-09-20 13:01] LABS: BASOPHILS % (AUTO) 0 % (0-10); EOSINOPHILS # (AUTO) 0.2 10^3/uL (0.0-0.3); EOSINOPHILS % (AUTO) 4 % (0-10); LYMPHOCYTES # (AUTO) 1.4 X 10^3 (1.0-4.0); LYMPHOCYTES % (AUTO) 27 % (12-44); MEAN CORPUSCULAR HEMOGLOBIN 31 PG (25-34); MEAN CORPUSCULAR HGB CONC 34 G/DL (32-36); MEAN CORPUSCULAR VOLUME 92 FL (80-99); MEAN PLATELET VOLUME 8.2 FL (7.4-10.4); MONOCYTES # (AUTO) 0.4 X 10^3 (0.0-1.0); MONOCYTES % (AUTO) 7 % (0-12); NEUTROPHILS # (AUTO) 3.1 X 10^3 (1.8-7.8); NEUTROPHILS % (AUTO) 62 % (42-75); PLATELET COUNT 358 10^3/uL (130-400); RED BLOOD COUNT 3.82 10^6/uL (4.35-5.85); RED CELL DISTRIBUTION WIDTH 17.2 % (10.0-14.5); WHITE BLOOD COUNT 5.1 10^3/uL (4.3-11.0)
[2016-09-20 13:26] LABS: ANION GAP 11 MMOL/L (5-14); BLOOD UREA NITROGEN 6 MG/DL (7-18); BUN/CREATININE RATIO 8; CALCIUM 8.3 MG/DL (8.5-10.1); CARBON DIOXIDE 20 MMOL/L (21-32); CHLORIDE 101 MMOL/L (98-107); CREATININE SERUM 0.74 MG/DL (0.60-1.30); GFR ESTIMATED > 60; GLUCOSE 122 MG/DL (70-105); POTASSIUM 3.8 MMOL/L (3.6-5.0); SODIUM 132 MMOL/L (135-145)
[2016-10-04 11:49] LABS: BASOPHILS % (AUTO) 1 % (0-10); EOSINOPHILS # (AUTO) 0.1 10^3/uL (0.0-0.3); EOSINOPHILS % (AUTO) 2 % (0-10); LYMPHOCYTES # (AUTO) 1.4 X 10^3 (1.0-4.0); LYMPHOCYTES % (AUTO) 23 % (12-44); MEAN CORPUSCULAR HEMOGLOBIN 32 PG (25-34); MEAN CORPUSCULAR HGB CONC 34 G/DL (32-36); MEAN CORPUSCULAR VOLUME 95 FL (80-99); MEAN PLATELET VOLUME 8.2 FL (7.4-10.4); MONOCYTES # (AUTO) 0.8 X 10^3 (0.0-1.0); MONOCYTES % (AUTO) 12 % (0-12); NEUTROPHILS # (AUTO) 3.9 X 10^3 (1.8-7.8); NEUTROPHILS % (AUTO) 63 % (42-75); PLATELET COUNT 334 10^3/uL (130-400); RED BLOOD COUNT 3.71 10^6/uL (4.35-5.85); RED CELL DISTRIBUTION WIDTH 18.7 % (10.0-14.5); WHITE BLOOD COUNT 6.2 10^3/uL (4.3-11.0)
[2016-10-04 12:11] LABS: ALANINE AMINOTRANSFERASE 11 U/L (0-55); ALBUMIN 3.8 G/DL (3.2-4.5); ANION GAP 10 MMOL/L (5-14); ASPARTATE AMINO TRANSFERASE 11 U/L (5-34); BILIRUBIN,TOTAL 0.2 MG/DL (0.1-1.0); BLOOD UREA NITROGEN 6 MG/DL (7-18); BUN/CREATININE RATIO 8; CALCIUM 8.5 MG/DL (8.5-10.1); CARBON DIOXIDE 21 MMOL/L (21-32); CHLORIDE 106 MMOL/L (98-107); CREATININE SERUM 0.74 MG/DL (0.60-1.30); GFR ESTIMATED > 60; GLUCOSE 115 MG/DL (70-105); MAGNESIUM 1.7 MG/DL (1.8-2.4); POTASSIUM 4.3 MMOL/L (3.6-5.0); SODIUM 137 MMOL/L (135-145); TOTAL PROTEIN 6.9 G/DL (6.4-8.2)
[2016-10-11 13:15] LABS: BASOPHILS % (AUTO) 1 % (0-10); EOSINOPHILS # (AUTO) 0.1 10^3/uL (0.0-0.3); EOSINOPHILS % (AUTO) 2 % (0-10); LYMPHOCYTES # (AUTO) 1.5 X 10^3 (1.0-4.0); LYMPHOCYTES % (AUTO) 24 % (12-44); MEAN CORPUSCULAR HEMOGLOBIN 32 PG (25-34); MEAN CORPUSCULAR HGB CONC 35 G/DL (32-36); MEAN CORPUSCULAR VOLUME 94 FL (80-99); MEAN PLATELET VOLUME 8.2 FL (7.4-10.4); MONOCYTES # (AUTO) 0.6 X 10^3 (0.0-1.0); MONOCYTES % (AUTO) 10 % (0-12); NEUTROPHILS # (AUTO) 3.9 X 10^3 (1.8-7.8); NEUTROPHILS % (AUTO) 63 % (42-75); PLATELET COUNT 309 10^3/uL (130-400); RED BLOOD COUNT 3.74 10^6/uL (4.35-5.85); RED CELL DISTRIBUTION WIDTH 17.9 % (10.0-14.5); WHITE BLOOD COUNT 6.2 10^3/uL (4.3-11.0)
[2016-10-11 13:39] LABS: ANION GAP 9 MMOL/L (5-14); BLOOD UREA NITROGEN 8 MG/DL (7-18); BUN/CREATININE RATIO 11; CALCIUM 8.5 MG/DL (8.5-10.1); CARBON DIOXIDE 22 MMOL/L (21-32); CHLORIDE 102 MMOL/L (98-107); CREATININE SERUM 0.72 MG/DL (0.60-1.30); GFR ESTIMATED > 60; GLUCOSE 107 MG/DL (70-105); POTASSIUM 3.8 MMOL/L (3.6-5.0); SODIUM 133 MMOL/L (135-145)
[2016-10-18 13:20] LABS: BASOPHILS % (AUTO) 1 % (0-10); EOSINOPHILS # (AUTO) 0.2 10^3/uL (0.0-0.3); EOSINOPHILS % (AUTO) 3 % (0-10); LYMPHOCYTES # (AUTO) 1.2 X 10^3 (1.0-4.0); LYMPHOCYTES % (AUTO) 21 % (12-44); MEAN CORPUSCULAR HEMOGLOBIN 33 PG (25-34); MEAN CORPUSCULAR HGB CONC 35 G/DL (32-36); MEAN CORPUSCULAR VOLUME 95 FL (80-99); MEAN PLATELET VOLUME 8.5 FL (7.4-10.4); MONOCYTES # (AUTO) 0.5 X 10^3 (0.0-1.0); MONOCYTES % (AUTO) 8 % (0-12); NEUTROPHILS # (AUTO) 4.1 X 10^3 (1.8-7.8); NEUTROPHILS % (AUTO) 68 % (42-75); PLATELET COUNT 312 10^3/uL (130-400); RED BLOOD COUNT 3.46 10^6/uL (4.35-5.85); RED CELL DISTRIBUTION WIDTH 18.1 % (10.0-14.5)
[2016-10-18 13:50] LABS: ANION GAP 12 MMOL/L (5-14); BLOOD UREA NITROGEN 8 MG/DL (7-18); BUN/CREATININE RATIO 10; CALCIUM 8.4 MG/DL (8.5-10.1); CARBON DIOXIDE 20 MMOL/L (21-32); CHLORIDE 104 MMOL/L (98-107); CREATININE SERUM 0.82 MG/DL (0.60-1.30); GFR ESTIMATED > 60; GLUCOSE 111 MG/DL (70-105); POTASSIUM 3.8 MMOL/L (3.6-5.0); SODIUM 136 MMOL/L (135-145)
[2016-10-27 15:15] LABS: BASOPHILS % (AUTO) 0 % (0-10); EOSINOPHILS # (AUTO) 0.1 10^3/uL (0.0-0.3); EOSINOPHILS % (AUTO) 2 % (0-10); LYMPHOCYTES # (AUTO) 1.3 X 10^3 (1.0-4.0); LYMPHOCYTES % (AUTO) 26 % (12-44); MEAN CORPUSCULAR HEMOGLOBIN 33 PG (25-34); MEAN CORPUSCULAR HGB CONC 35 G/DL (32-36); MEAN CORPUSCULAR VOLUME 96 FL (80-99); MEAN PLATELET VOLUME 8.1 FL (7.4-10.4); MONOCYTES # (AUTO) 0.7 X 10^3 (0.0-1.0); MONOCYTES % (AUTO) 14 % (0-12); NEUTROPHILS # (AUTO) 2.9 X 10^3 (1.8-7.8); NEUTROPHILS % (AUTO) 57 % (42-75); PLATELET COUNT 318 10^3/uL (130-400); RED BLOOD COUNT 3.39 10^6/uL (4.35-5.85); RED CELL DISTRIBUTION WIDTH 18.3 % (10.0-14.5); WHITE BLOOD COUNT 5.1 10^3/uL (4.3-11.0)
[2016-10-27 15:38] LABS: ANION GAP 8 MMOL/L (5-14); BLOOD UREA NITROGEN 6 MG/DL (7-18); BUN/CREATININE RATIO 8; CALCIUM 8.1 MG/DL (8.5-10.1); CARBON DIOXIDE 22 MMOL/L (21-32); CHLORIDE 103 MMOL/L (98-107); CREATININE SERUM 0.74 MG/DL (0.60-1.30); GFR ESTIMATED > 60; GLUCOSE 77 MG/DL (70-105); POTASSIUM 4.1 MMOL/L (3.6-5.0); SODIUM 133 MMOL/L (135-145)
[2016-11-01 13:11] LABS: BASOPHILS % (AUTO) 0 % (0-10); EOSINOPHILS # (AUTO) 0.1 10^3/uL (0.0-0.3); EOSINOPHILS % (AUTO) 2 % (0-10); LYMPHOCYTES % (AUTO) 16 % (12-44); MEAN CORPUSCULAR HEMOGLOBIN 33 PG (25-34); MEAN CORPUSCULAR HGB CONC 34 G/DL (32-36); MEAN CORPUSCULAR VOLUME 98 FL (80-99); MEAN PLATELET VOLUME 8.3 FL (7.4-10.4); MONOCYTES # (AUTO) 0.8 X 10^3 (0.0-1.0); MONOCYTES % (AUTO) 13 % (0-12); NEUTROPHILS # (AUTO) 4.3 X 10^3 (1.8-7.8); NEUTROPHILS % (AUTO) 69 % (42-75); PLATELET COUNT 272 10^3/uL (130-400); RED BLOOD COUNT 3.56 10^6/uL (4.35-5.85); RED CELL DISTRIBUTION WIDTH 18.4 % (10.0-14.5); WHITE BLOOD COUNT 6.2 10^3/uL (4.3-11.0)
[2016-11-01 13:39] LABS: ALANINE AMINOTRANSFERASE 14 U/L (0-55); ALBUMIN 3.6 G/DL (3.2-4.5); ANION GAP 8 MMOL/L (5-14); ASPARTATE AMINO TRANSFERASE 11 U/L (5-34); BILIRUBIN,TOTAL 0.2 MG/DL (0.1-1.0); BLOOD UREA NITROGEN 7 MG/DL (7-18); BUN/CREATININE RATIO 10; CALCIUM 8.3 MG/DL (8.5-10.1); CARBON DIOXIDE 23 MMOL/L (21-32); CHLORIDE 107 MMOL/L (98-107); GFR ESTIMATED > 60; GLUCOSE 103 MG/DL (70-105); MAGNESIUM 1.6 MG/DL (1.8-2.4); POTASSIUM 3.8 MMOL/L (3.6-5.0); SODIUM 138 MMOL/L (135-145); TOTAL PROTEIN 6.5 G/DL (6.4-8.2)
[2016-11-08 13:10] LABS: BASOPHILS % (AUTO) 1 % (0-10); EOSINOPHILS # (AUTO) 0.2 10^3/uL (0.0-0.3); EOSINOPHILS % (AUTO) 3 % (0-10); LYMPHOCYTES # (AUTO) 1.7 X 10^3 (1.0-4.0); LYMPHOCYTES % (AUTO) 31 % (12-44); MEAN CORPUSCULAR HEMOGLOBIN 33 PG (25-34); MEAN CORPUSCULAR HGB CONC 35 G/DL (32-36); MEAN CORPUSCULAR VOLUME 97 FL (80-99); MEAN PLATELET VOLUME 8.4 FL (7.4-10.4); MONOCYTES # (AUTO) 0.5 X 10^3 (0.0-1.0); MONOCYTES % (AUTO) 9 % (0-12); NEUTROPHILS # (AUTO) 3.1 X 10^3 (1.8-7.8); NEUTROPHILS % (AUTO) 57 % (42-75); PLATELET COUNT 286 10^3/uL (130-400); RED BLOOD COUNT 3.62 10^6/uL (4.35-5.85); RED CELL DISTRIBUTION WIDTH 16.6 % (10.0-14.5); WHITE BLOOD COUNT 5.4 10^3/uL (4.3-11.0)
[2016-11-08 13:32] LABS: ANION GAP 7 MMOL/L (5-14); BLOOD UREA NITROGEN 10 MG/DL (7-18); BUN/CREATININE RATIO 13; CALCIUM 8.5 MG/DL (8.5-10.1); CARBON DIOXIDE 23 MMOL/L (21-32); CHLORIDE 104 MMOL/L (98-107); CREATININE SERUM 0.76 MG/DL (0.60-1.30); GFR ESTIMATED > 60; GLUCOSE 106 MG/DL (70-105); POTASSIUM 4.3 MMOL/L (3.6-5.0); SODIUM 134 MMOL/L (135-145)
[~2016-11-15] VITALS: Ht 177.8 cm; Wt 61.7 kg
[~2016-11-15 12:58] MED LIST changes: +CARBOPLATIN IV SCH; +D5W IV SCH; +FAMOTIDINE 20MG/2ML IV (CANCER CTR) IV SCH; -GADOBUTROL 7.5 MMOL/7.5 ML (GADAVIST) VIAL IV ONE; +NORMAL SALINE IV SCH; +NS IV 500 ML (CANCER CENTER) IV SCH; +ONDANSETRON 16 MG, DEXAMETHASONE 10 MG/NS 50 ML IVPB IV SCH; +PACLITAXEL IV SCH; +PACLITAXEL SEMI SYNTHETIC IV SCH; +diphenhydrAMINE 25 MG TAB (BENADRYL) CANCER CENTER PO SCH
[2016-11-15 13:22] LABS: BASOPHILS % (AUTO) 1 % (0-10); EOSINOPHILS # (AUTO) 0.2 10^3/uL (0.0-0.3); EOSINOPHILS % (AUTO) 3 % (0-10); LYMPHOCYTES # (AUTO) 1.3 X 10^3 (1.0-4.0); LYMPHOCYTES % (AUTO) 28 % (12-44); MEAN CORPUSCULAR HEMOGLOBIN 33 PG (25-34); MEAN CORPUSCULAR HGB CONC 34 G/DL (32-36); MEAN CORPUSCULAR VOLUME 99 FL (80-99); MEAN PLATELET VOLUME 8.2 FL (7.4-10.4); MONOCYTES # (AUTO) 0.5 X 10^3 (0.0-1.0); MONOCYTES % (AUTO) 11 % (0-12); NEUTROPHILS # (AUTO) 2.6 X 10^3 (1.8-7.8); NEUTROPHILS % (AUTO) 57 % (42-75); PLATELET COUNT 360 10^3/uL (130-400); RED BLOOD COUNT 3.37 10^6/uL (4.35-5.85); RED CELL DISTRIBUTION WIDTH 16.6 % (10.0-14.5); WHITE BLOOD COUNT 4.6 10^3/uL (4.3-11.0)
[2016-11-15 13:52] LABS: ANION GAP 8 MMOL/L (5-14); BLOOD UREA NITROGEN 8 MG/DL (7-18); BUN/CREATININE RATIO 11; CALCIUM 8.3 MG/DL (8.5-10.1); CARBON DIOXIDE 22 MMOL/L (21-32); CHLORIDE 105 MMOL/L (98-107); GFR ESTIMATED > 60; GLUCOSE 87 MG/DL (70-105); SODIUM 135 MMOL/L (135-145)
== END 2016-11-21 | disposition home or self-care (01) ==
LOC: ONC 12:58
PROVIDERS: ATTEND Internal Medicine Hematology & Oncology
DX: Z51.11 Encounter for antineoplastic chemotherapy (principal); C34.11 Malignant neoplasm of upper lobe, right bronchus or lung; F17.210 Nicotine dependence, cigarettes, uncomplicated; R63.4 Abnormal weight loss; I73.89 Other specified peripheral vascular diseases; I25.10 Atherosclerotic heart disease of native coronary artery without angina pectoris; I25.2 Old myocardial infarction; G40.909 Epilepsy, unspecified, not intractable, without status epilepticus; Z79.899 Other long term (current) drug therapy
CPT/HCPCS: 36415; 36591; 80048; 80053; 83735; 85025; 96375; 96413; 96417; 99213

== ENCOUNTER → 2016-12-22 | Outpatient (CLI) | payer MEDICAID ==
[~2016-12-22] MED LIST changes: -CARBOPLATIN IV SCH; -D5W IV SCH; -FAMOTIDINE 20MG/2ML IV (CANCER CTR) IV SCH; +HEParin (CATH LAB) 1,000 ML IV ONE; +HYDROcodone/APAP 5 MG/325 MG (LORTAB) TAB PO PRN; +LIDOCAINE 1% INJ 20 ML (XYLOCAINE) VIAL ONE; +MIDAZOLAM 5 MG/5 ML (VERSED) VIAL ONE; +NEO/POLY/BAC (NEOSPORIN) OINT 15 GM TUBE ONE; -NORMAL SALINE IV SCH; +NS IV 1000 ML 1,000 ML IV SCH; +NS IV 1000 ML 1,000 ML ONE; -NS IV 500 ML (CANCER CENTER) IV SCH; -ONDANSETRON 16 MG, DEXAMETHASONE 10 MG/NS 50 ML IVPB IV SCH; -PACLITAXEL IV SCH; -PACLITAXEL SEMI SYNTHETIC IV SCH; +ceFAZolin 1,000 MG (ANCEF) VIAL ONE; -diphenhydrAMINE 25 MG TAB (BENADRYL) CANCER CENTER PO SCH; +diphenhydrAMINE 50 MG/ML INJ (BENADRYL) ONE; +fentaNYL INJECTION 100 MCG/2 ML AMP ONE
--- NOTE | 2016-12-22 15:02 | Pre-Op Note & Conscious Sedat ---
Pre-Operative Progress Note H&P Reviewed The H&P was reviewed, patient examined and no changes noted. Date H&P Reviewed: December 22, 2016 Time H&P Reviewed: 13:30 Pre-Op Diagnosis: port malposition Conscious Sedation Pre-Proced Time Reviewed: 13:30 ASA Class: 3 Airway Mallampati Classification: ([place] appropriate class) I. II. III, IV Lungs Heart ASA score ASA 1: a normal healthy patient ASA 2: a patient with a mild systemic disease (mid diabetes, controlled hypertension, obesity ASA 3: a patient with a severe systemic disease that limits activity (angina , COPD, prior Myocardial infarction) ASA 4: a patient with an incapacitating disease that is a constant threat to life (CHF, renal failure) ASA 5: a moribund patient not expected to survive 24 hrs. (ruptured aneurysm) ASA 6: a declared brain patient whose organs are being harvested. For emergent operations, add the letter E after the classification Grade 3 Sedation Plan: Analgesia Note The patient is an appropriate candidate to undergo the planned procedure, sedation, and anesthesia. The patient immediately re-assessed prior to indication. VIVIANA VERAS MD December 22, 2016 15:02
--- NOTE | 2016-12-22 15:26 | Diagnostic Imaging Report ---
PA and lateral chest radiograph. INDICATION: Port cath malposition. FINDINGS: There is a right upper lobe 4.9 cm mass. Heart size is normal. Calcified granulomas in the left perihilar region seen. There is a left internal jugular infusion port. The tip of the port projects in the proximal aspect of the right ventricle as confirmed on CT scan. No pneumothorax. IMPRESSION: 1. A 4.9 cm right upper lobe mass. 2. The tip of the infusion port is in the proximal aspect of the right ventricle. Dictated by: Dictated on workstation # [id number]
--- NOTE | 2016-12-22 19:39 | Diagnostic Imaging Report ---
EXAMINATION: Fluoroscopic guided evaluation and adjustment of Port catheter malposition. INDICATION: Malposition of the tip of the left internal jugular port catheter into the right ventricle. Current history and physical and other medical records are reviewed prior to the procedure. CONSENT: Informed consent was obtained from the patient. The risks, benefits, potential complications and alternatives were reviewed and all questions answered to the patient's satisfaction. The patient's vital signs, cardiac rhythm, and pulse oximetry with observed throughout the procedure by qualified nursing personnel. Total conscious sedation time is one hour. Sedation/medications: Benadryl 15 mg, Versed 2 mg and fentanyl 100 mcg IV. 1 g of Ancef is also given preoperatively. PROCEDURE: After maximal sterile barrier technique preparation and draping, 1% lidocaine was utilized for local anesthesia. 3 cm incision is made over the proximal aspect of the catheter just distal to the site of the reservoir. Blunt dissection is performed to the catheter with fibrous sheath around it dissected and the catheter is exposed. Then the fixating mechanism was released from the reservoir. The catheter was clamped. The reservoir was flushed. Then after freeing the catheter it was pulled under fluoroscopic guidance and the catheter tip is repositioned into the cavoatrial junction. The excess length of the catheter was then cut with about 10 cm fragment removed and subsequently the catheter was attached again to the reservoir. The port is flushed. It aspirates perhaps slightly slower than a new port and catheter, possibly related to mild fibrin sheath formation. It flushes, however, promptly with no resistance. The patient tolerated the procedure well with no immediate complications. FINDINGS: Initial images demonstrate the tip of the catheter in the right ventricle. After the procedure the final image demonstrated the catheter tip in the cavoatrial junction. IMPRESSION: Under fluoroscopic guidance, the port catheter was exposed at its attachment to the port reservoir, and the catheter was pulled so that the tip of the catheter is at the cavoatrial junction and about 10 cm of the catheter was cut and removed and attached again to the reservoir. The catheter aspirates slightly slower than expected but flushes promptly probably related to mild fibrin sheath. Dictated by: Dictated on workstation # [id number]
== END ==
LOC: RAD 13:23
DX: T82.524A Displacement of infusion catheter, initial encounter (principal); R91.8 Other nonspecific abnormal finding of lung field
CPT/HCPCS: 71020

== ENCOUNTER → 2016-12-22 | Outpatient (CLI) | payer MEDICAID ==
[~2016-12-22] VITALS: Ht 182.9 cm; Wt 62.6 kg
[~2016-12-22] MED LIST changes: +BARIUM SUSPENSION 2.1% (VANILLA SILQ) 450 ML PO ONE; +CATHETER FLUSH 10 ML SYR IV PRN; -HEParin (CATH LAB) 1,000 ML IV ONE; -HYDROcodone/APAP 5 MG/325 MG (LORTAB) TAB PO PRN; +IOHEXOL 350 MG/ML 100 ML (OMNIPAQUE 350) VIAL IV ONE; -LIDOCAINE 1% INJ 20 ML (XYLOCAINE) VIAL ONE; -MIDAZOLAM 5 MG/5 ML (VERSED) VIAL ONE; -NEO/POLY/BAC (NEOSPORIN) OINT 15 GM TUBE ONE; +NS 100 ML (IVPB) BAG IV ONE; -NS IV 1000 ML 1,000 ML IV SCH; -NS IV 1000 ML 1,000 ML ONE; -ceFAZolin 1,000 MG (ANCEF) VIAL ONE; -diphenhydrAMINE 50 MG/ML INJ (BENADRYL) ONE; -fentaNYL INJECTION 100 MCG/2 ML AMP ONE
--- NOTE | 2016-12-22 12:27 | Diagnostic Imaging Report ---
PROCEDURE: CT chest, abdomen, and pelvis with contrast. TECHNIQUE: Multiple contiguous axial images were obtained through the chest, abdomen, and pelvis after the administration of intravenous contrast. INDICATION: CT chest, abdomen, and pelvis performed with intravenous contrast. INDICATION: Metastatic lung cancer. 100 mL of Omnipaque 350 is administered intravenously. COMPARISON: 10/27/2016. FINDINGS: CT chest: There is a 4.7 x 3.6 x 2.9-cm mass in the right upper lobe with spiculated margins seen compared to 3.5 x 3.5 x 3.2-cm measurements on the prior study. The difference in the measurements could be related to slice selection and within error margin with no obvious overall change. There is a mildly enlarged right hilar lymph node with central calcification seen measuring 2 cm in size similar to the prior exam. A mildly enlarged infracarinal lymph node measuring 1.5 cm is minimally more prominent compared to the previous study. A precarinal lymph node measuring 1.1 cm appears slightly less prominent compared to the previous study. No left hilar significant lymphadenopathy. There are left hilar and perihilar calcified granulomas however. Nonspecific groundglass opacity in the left lower lobe is seen with similar finding on the prior exam probably secondary to scarring. Mild emphysema changes are seen overall. There is no new mass or new suspicious nodule. No axillary lymphadenopathy. The thoracic aorta is normal in caliber. The heart size is normal. No pericardial or pleural effusion. Infusion port is seen through an internal jugular approach with the tip at the right ventricle level. The osseous structures demonstrate mild degenerative changes. CT abdomen and pelvis: The liver demonstrates calcified granulomas in the left hepatic lobe. The gallbladder, the spleen, and the pancreas appear unremarkable. The gallbladder demonstrate nonspecific minimal wall thickening and enhancement. There is a 1.4-cm hypodense nodule seen in the right adrenal gland that appeared since the prior study with question of thickening in this region of the adrenal gland and the previous exam. A tiny nodule in the left adrenal gland measuring 9 mm is stable. The kidneys have symmetric enhancement and contrast excretion. There is a 1.8-cm simple cyst partially exophytic from the right kidney. The abdominal aorta demonstrates normal caliber proximally. The infrarenal aorta is occluded with aorto-bifemoral patent graft seen in place. There is a left lower quadrant colostomy. No significant free fluid or fluid collection in the abdomen or pelvis seen. No bowel obstruction. The osseous structures appear stable. IMPRESSION: CT chest: 1. There is questionable minimal enlargement in the right upper lobe mass. 2. Stable right hilar and mediastinal lymph nodes. 3. The tip of the right internal jugular port is in the right ventricle. CT abdomen and pelvis: Enlarged 1.4-cm right adrenal nodule suggestive of metastasis. Stable nonspecific 0.9-cm left adrenal nodule. Dr. Teresa is notified about the findings of the location of the tip of the port in the right ventricle at time of dictation. The patient will be called back to adjust its position. Dictated by: Dictated on workstation # [id number]
[2016-12-22 13:47] VITALS: BP 123/80
== END ==
LOC: RAD 11:01
PROVIDERS: ATTEND Internal Medicine Hematology & Oncology
DX: C34.11 Malignant neoplasm of upper lobe, right bronchus or lung (principal); C79.31 Secondary malignant neoplasm of brain; E27.9 Disorder of adrenal gland, unspecified
CPT/HCPCS: 71260; 74177

== ENCOUNTER 2017-02-21 12:11 | Outpatient (RCR) | payer MEDICAID ==
[2016-11-29 14:18] LABS: BASOPHILS % (AUTO) 0 % (0-10); EOSINOPHILS # (AUTO) 0.1 10^3/uL (0.0-0.3); EOSINOPHILS % (AUTO) 2 % (0-10); LYMPHOCYTES # (AUTO) 1.3 X 10^3 (1.0-4.0); LYMPHOCYTES % (AUTO) 15 % (12-44); MEAN CORPUSCULAR HEMOGLOBIN 34 PG (25-34); MEAN CORPUSCULAR HGB CONC 34 G/DL (32-36); MEAN CORPUSCULAR VOLUME 101 FL (80-99); MEAN PLATELET VOLUME 8.8 FL (7.4-10.4); MONOCYTES # (AUTO) 1.1 X 10^3 (0.0-1.0); MONOCYTES % (AUTO) 14 % (0-12); NEUTROPHILS # (AUTO) 5.6 X 10^3 (1.8-7.8); NEUTROPHILS % (AUTO) 69 % (42-75); PLATELET COUNT 291 10^3/uL (130-400); RED BLOOD COUNT 3.35 10^6/uL (4.35-5.85); RED CELL DISTRIBUTION WIDTH 15.9 % (10.0-14.5); WHITE BLOOD COUNT 8.1 10^3/uL (4.3-11.0)
[2016-11-29 14:41] LABS: ALANINE AMINOTRANSFERASE 14 U/L (0-55); ALBUMIN 3.8 G/DL (3.2-4.5); ANION GAP 10 MMOL/L (5-14); ASPARTATE AMINO TRANSFERASE 12 U/L (5-34); BILIRUBIN,TOTAL 0.2 MG/DL (0.1-1.0); BLOOD UREA NITROGEN 7 MG/DL (7-18); BUN/CREATININE RATIO 10; CALCIUM 8.5 MG/DL (8.5-10.1); CARBON DIOXIDE 23 MMOL/L (21-32); CHLORIDE 102 MMOL/L (98-107); CREATININE SERUM 0.71 MG/DL (0.60-1.30); GFR ESTIMATED > 60; GLUCOSE 113 MG/DL (70-105); MAGNESIUM 1.7 MG/DL (1.8-2.4); SODIUM 135 MMOL/L (135-145); TOTAL PROTEIN 6.7 G/DL (6.4-8.2)
[2016-12-06 11:40] LABS: BASOPHILS % (AUTO) 1 % (0-10); EOSINOPHILS # (AUTO) 0.2 10^3/uL (0.0-0.3); EOSINOPHILS % (AUTO) 3 % (0-10); LYMPHOCYTES # (AUTO) 1.4 X 10^3 (1.0-4.0); LYMPHOCYTES % (AUTO) 23 % (12-44); MEAN CORPUSCULAR HEMOGLOBIN 34 PG (25-34); MEAN CORPUSCULAR HGB CONC 34 G/DL (32-36); MEAN CORPUSCULAR VOLUME 100 FL (80-99); MEAN PLATELET VOLUME 8.4 FL (7.4-10.4); MONOCYTES # (AUTO) 0.5 X 10^3 (0.0-1.0); MONOCYTES % (AUTO) 9 % (0-12); NEUTROPHILS # (AUTO) 3.8 X 10^3 (1.8-7.8); NEUTROPHILS % (AUTO) 65 % (42-75); PLATELET COUNT 268 10^3/uL (130-400); RED BLOOD COUNT 3.34 10^6/uL (4.35-5.85); RED CELL DISTRIBUTION WIDTH 15.1 % (10.0-14.5); WHITE BLOOD COUNT 5.9 10^3/uL (4.3-11.0)
[2016-12-06 12:01] LABS: ANION GAP 7 MMOL/L (5-14); BLOOD UREA NITROGEN 7 MG/DL (7-18); BUN/CREATININE RATIO 9; CALCIUM 8.3 MG/DL (8.5-10.1); CARBON DIOXIDE 23 MMOL/L (21-32); CHLORIDE 103 MMOL/L (98-107); CREATININE SERUM 0.76 MG/DL (0.60-1.30); GFR ESTIMATED > 60; GLUCOSE 95 MG/DL (70-105); POTASSIUM 3.8 MMOL/L (3.6-5.0); SODIUM 133 MMOL/L (135-145)
[2016-12-13 13:29] LABS: BASOPHILS # (AUTO) 0.1 10^3/uL (0.0-0.1); BASOPHILS % (AUTO) 1 % (0-10); EOSINOPHILS # (AUTO) 0.2 10^3/uL (0.0-0.3); EOSINOPHILS % (AUTO) 4 % (0-10); LYMPHOCYTES # (AUTO) 1.2 X 10^3 (1.0-4.0); LYMPHOCYTES % (AUTO) 22 % (12-44); MEAN CORPUSCULAR HEMOGLOBIN 35 PG (25-34); MEAN CORPUSCULAR HGB CONC 34 G/DL (32-36); MEAN CORPUSCULAR VOLUME 102 FL (80-99); MEAN PLATELET VOLUME 8.9 FL (7.4-10.4); MONOCYTES # (AUTO) 0.6 X 10^3 (0.0-1.0); MONOCYTES % (AUTO) 11 % (0-12); NEUTROPHILS # (AUTO) 3.4 X 10^3 (1.8-7.8); NEUTROPHILS % (AUTO) 63 % (42-75); PLATELET COUNT 295 10^3/uL (130-400); RED BLOOD COUNT 3.25 10^6/uL (4.35-5.85); RED CELL DISTRIBUTION WIDTH 15.3 % (10.0-14.5); WHITE BLOOD COUNT 5.4 10^3/uL (4.3-11.0)
[2016-12-13 13:52] LABS: ALANINE AMINOTRANSFERASE 13 U/L (0-55); ALBUMIN 3.9 G/DL (3.2-4.5); ANION GAP 10 MMOL/L (5-14); ASPARTATE AMINO TRANSFERASE 14 U/L (5-34); BILIRUBIN,TOTAL 0.2 MG/DL (0.1-1.0); BLOOD UREA NITROGEN 11 MG/DL (7-18); BUN/CREATININE RATIO 14; CALCIUM 8.6 MG/DL (8.5-10.1); CARBON DIOXIDE 21 MMOL/L (21-32); CHLORIDE 106 MMOL/L (98-107); CREATININE SERUM 0.76 MG/DL (0.60-1.30); GFR ESTIMATED > 60; GLUCOSE 98 MG/DL (70-105); POTASSIUM 4.1 MMOL/L (3.6-5.0); SODIUM 137 MMOL/L (135-145); TOTAL PROTEIN 6.9 G/DL (6.4-8.2)
[2016-12-27 10:56] LABS: BASOPHILS % (AUTO) 0 % (0-10); EOSINOPHILS # (AUTO) 0.1 10^3/uL (0.0-0.3); EOSINOPHILS % (AUTO) 1 % (0-10); LYMPHOCYTES # (AUTO) 1.2 X 10^3 (1.0-4.0); LYMPHOCYTES % (AUTO) 13 % (12-44); MEAN CORPUSCULAR HEMOGLOBIN 34 PG (25-34); MEAN CORPUSCULAR HGB CONC 34 G/DL (32-36); MEAN CORPUSCULAR VOLUME 101 FL (80-99); MEAN PLATELET VOLUME 8.4 FL (7.4-10.4); MONOCYTES # (AUTO) 1.1 X 10^3 (0.0-1.0); MONOCYTES % (AUTO) 11 % (0-12); NEUTROPHILS # (AUTO) 6.9 X 10^3 (1.8-7.8); NEUTROPHILS % (AUTO) 74 % (42-75); PLATELET COUNT 328 10^3/uL (130-400); RED BLOOD COUNT 3.36 10^6/uL (4.35-5.85); RED CELL DISTRIBUTION WIDTH 15.2 % (10.0-14.5); WHITE BLOOD COUNT 9.4 10^3/uL (4.3-11.0)
[2016-12-27 11:32] LABS: ALANINE AMINOTRANSFERASE 13 U/L (0-55); ALBUMIN 3.8 G/DL (3.2-4.5); ANION GAP 10 MMOL/L (5-14); ASPARTATE AMINO TRANSFERASE 12 U/L (5-34); BILIRUBIN,TOTAL 0.2 MG/DL (0.1-1.0); BLOOD UREA NITROGEN 6 MG/DL (7-18); BUN/CREATININE RATIO 8; CALCIUM 8.8 MG/DL (8.5-10.1); CARBON DIOXIDE 24 MMOL/L (21-32); CHLORIDE 103 MMOL/L (98-107); CREATININE SERUM 0.74 MG/DL (0.60-1.30); GFR ESTIMATED > 60; GLUCOSE 87 MG/DL (70-105); POTASSIUM 3.8 MMOL/L (3.6-5.0); SODIUM 137 MMOL/L (135-145); TOTAL PROTEIN 7.1 G/DL (6.4-8.2)
[2017-01-11 11:30] LABS: BASOPHILS % (AUTO) 1 % (0-10); EOSINOPHILS # (AUTO) 0.2 10^3/uL (0.0-0.3); EOSINOPHILS % (AUTO) 3 % (0-10); LYMPHOCYTES # (AUTO) 1.6 X 10^3 (1.0-4.0); LYMPHOCYTES % (AUTO) 18 % (12-44); MEAN CORPUSCULAR HEMOGLOBIN 34 PG (25-34); MEAN CORPUSCULAR HGB CONC 34 G/DL (32-36); MEAN CORPUSCULAR VOLUME 101 FL (80-99); MEAN PLATELET VOLUME 8.6 FL (7.4-10.4); MONOCYTES # (AUTO) 0.9 X 10^3 (0.0-1.0); MONOCYTES % (AUTO) 11 % (0-12); NEUTROPHILS # (AUTO) 5.7 X 10^3 (1.8-7.8); NEUTROPHILS % (AUTO) 68 % (42-75); PLATELET COUNT 322 10^3/uL (130-400); RED BLOOD COUNT 3.66 10^6/uL (4.35-5.85); RED CELL DISTRIBUTION WIDTH 14.5 % (10.0-14.5); WHITE BLOOD COUNT 8.4 10^3/uL (4.3-11.0)
[2017-01-11 11:49] LABS: ALANINE AMINOTRANSFERASE 18 U/L (0-55); ALBUMIN 3.9 G/DL (3.2-4.5); ANION GAP 9 MMOL/L (5-14); ASPARTATE AMINO TRANSFERASE 17 U/L (5-34); BILIRUBIN,TOTAL 0.2 MG/DL (0.1-1.0); BLOOD UREA NITROGEN 8 MG/DL (7-18); BUN/CREATININE RATIO 11; CALCIUM 8.9 MG/DL (8.5-10.1); CARBON DIOXIDE 24 MMOL/L (21-32); CHLORIDE 106 MMOL/L (98-107); CREATININE SERUM 0.74 MG/DL (0.60-1.30); GFR ESTIMATED > 60; GLUCOSE 89 MG/DL (70-105); MAGNESIUM 1.6 MG/DL (1.8-2.4); POTASSIUM 3.9 MMOL/L (3.6-5.0); SODIUM 139 MMOL/L (135-145); TOTAL PROTEIN 7.5 G/DL (6.4-8.2)
[2017-01-11 12:09] LABS: THYROID STIMULATING HORMONE 0.63 UIU/ML (0.35-4.94)
[2017-01-24 11:38] LABS: BASOPHILS % (AUTO) 0 % (0-10); EOSINOPHILS # (AUTO) 0.2 10^3/uL (0.0-0.3); EOSINOPHILS % (AUTO) 3 % (0-10); LYMPHOCYTES # (AUTO) 1.1 X 10^3 (1.0-4.0); LYMPHOCYTES % (AUTO) 14 % (12-44); MEAN CORPUSCULAR HEMOGLOBIN 33 PG (25-34); MEAN CORPUSCULAR HGB CONC 34 G/DL (32-36); MEAN CORPUSCULAR VOLUME 98 FL (80-99); MEAN PLATELET VOLUME 8.9 FL (7.4-10.4); MONOCYTES # (AUTO) 0.9 X 10^3 (0.0-1.0); MONOCYTES % (AUTO) 11 % (0-12); NEUTROPHILS # (AUTO) 5.8 X 10^3 (1.8-7.8); NEUTROPHILS % (AUTO) 72 % (42-75); PLATELET COUNT 281 10^3/uL (130-400); RED BLOOD COUNT 3.83 10^6/uL (4.35-5.85); RED CELL DISTRIBUTION WIDTH 13.7 % (10.0-14.5)
[2017-01-24 12:00] LABS: ANION GAP 11 MMOL/L (5-14); BLOOD UREA NITROGEN 5 MG/DL (7-18); BUN/CREATININE RATIO 6 (0-20); CALCIUM 8.9 MG/DL (8.5-10.1); CARBON DIOXIDE 22 MMOL/L (21-32); CHLORIDE 103 MMOL/L (98-107); CREATININE SERUM 0.79 MG/DL (0.60-1.30); GFR ESTIMATED > 60; GLUCOSE 100 MG/DL (70-105); HEMOLYSIS 11 (-100-29); ICTERUS 0.1 (-100-1.9); LIPEMIA -1 (-100-49); MAGNESIUM 1.6 MG/DL (1.8-2.4); POTASSIUM 3.7 MMOL/L (3.6-5.0); SODIUM 136 MMOL/L (135-145)
[2017-02-08 12:57] LABS: BASOPHILS % (AUTO) 1 % (0-10); EOSINOPHILS # (AUTO) 0.2 10^3/uL (0.0-0.3); EOSINOPHILS % (AUTO) 3 % (0-10); LYMPHOCYTES # (AUTO) 1.5 X 10^3 (1.0-4.0); LYMPHOCYTES % (AUTO) 22 % (12-44); MEAN CORPUSCULAR HEMOGLOBIN 34 PG (25-34); MEAN CORPUSCULAR HGB CONC 34 G/DL (32-36); MEAN CORPUSCULAR VOLUME 98 FL (80-99); MEAN PLATELET VOLUME 8.5 FL (7.4-10.4); MONOCYTES # (AUTO) 0.8 X 10^3 (0.0-1.0); MONOCYTES % (AUTO) 11 % (0-12); NEUTROPHILS # (AUTO) 4.4 X 10^3 (1.8-7.8); NEUTROPHILS % (AUTO) 63 % (42-75); PLATELET COUNT 308 10^3/uL (130-400); RED BLOOD COUNT 3.84 10^6/uL (4.35-5.85); RED CELL DISTRIBUTION WIDTH 13.8 % (10.0-14.5); WHITE BLOOD COUNT 6.9 10^3/uL (4.3-11.0)
[2017-02-08 13:38] LABS: ALANINE AMINOTRANSFERASE 16 U/L (0-55); ALBUMIN 3.7 GM/DL (3.2-4.5); ANION GAP 9 MMOL/L (5-14); ASPARTATE AMINO TRANSFERASE 18 U/L (5-34); BILIRUBIN,TOTAL 0.2 MG/DL (0.1-1.0); BLOOD UREA NITROGEN 6 MG/DL (7-18); BUN/CREATININE RATIO 8; CALCIUM 8.7 MG/DL (8.5-10.1); CARBON DIOXIDE 24 MMOL/L (21-32); CHLORIDE 105 MMOL/L (98-107); CREATININE SERUM 0.75 MG/DL (0.60-1.30); GFR ESTIMATED > 60; GLUCOSE 110 MG/DL (70-105); POTASSIUM 3.8 MMOL/L (3.6-5.0); SODIUM 138 MMOL/L (135-145); TOTAL PROTEIN 7.1 GM/DL (6.4-8.2)
[2017-02-08 14:01] LABS: THYROID STIMULATING HORMONE 0.75 UIU/ML (0.35-4.94)
[~2017-02-21] VITALS: Ht 177.8 cm; Wt 62.1 kg
[~2017-02-21 12:11] MED LIST changes: +ACETAMINOPHEN 500 MG TAB (TYLENOL) CANCER CTR ONE; -BARIUM SUSPENSION 2.1% (VANILLA SILQ) 450 ML PO ONE; +CARBOPLATIN IV SCH; -CATHETER FLUSH 10 ML SYR IV PRN; +D5W IV SCH; +FAMOTIDINE 20MG/2ML IV (CANCER CTR) IV SCH; -IOHEXOL 350 MG/ML 100 ML (OMNIPAQUE 350) VIAL IV ONE; +NIVOLUMAB 200 MG, NIVOLUMAB 40 MG in NS (IVPB) CANCER CENTER 50 ML IV SCH; +NORMAL SALINE IV SCH; -NS 100 ML (IVPB) BAG IV ONE; +NS IV 1000 ML (CANCER CTR) 1,000 ML ONE; +NS IV 500 ML (CANCER CENTER) 0 ML ONE; +NS IV 500 ML (CANCER CENTER) IV SCH; +ONDANSETRON 16 MG, DEXAMETHASONE 10 MG/NS 50 ML IVPB IV SCH; +PACLITAXEL 130 MG in NORMAL SALINE (CANCER CENTER) 250 ML IV SCH; +PACLITAXEL IV SCH; +diphenhydrAMINE 25 MG TAB (BENADRYL) CANCER CENTER PO ONE; +diphenhydrAMINE 25 MG TAB (BENADRYL) CANCER CENTER PO SCH
[2017-02-21 12:40] LABS: BASOPHILS % (AUTO) 0 % (0-10); EOSINOPHILS # (AUTO) 0.2 10^3/uL (0.0-0.3); EOSINOPHILS % (AUTO) 2 % (0-10); LYMPHOCYTES # (AUTO) 1.4 X 10^3 (1.0-4.0); LYMPHOCYTES % (AUTO) 16 % (12-44); MEAN CORPUSCULAR HEMOGLOBIN 32 PG (25-34); MEAN CORPUSCULAR HGB CONC 34 G/DL (32-36); MEAN CORPUSCULAR VOLUME 96 FL (80-99); MEAN PLATELET VOLUME 8.7 FL (7.4-10.4); MONOCYTES % (AUTO) 11 % (0-12); NEUTROPHILS # (AUTO) 6.5 X 10^3 (1.8-7.8); NEUTROPHILS % (AUTO) 71 % (42-75); PLATELET COUNT 331 10^3/uL (130-400); RED CELL DISTRIBUTION WIDTH 13.3 % (10.0-14.5); WHITE BLOOD COUNT 9.2 10^3/uL (4.3-11.0)
[2017-02-21 13:06] LABS: ANION GAP 10 MMOL/L (5-14); BLOOD UREA NITROGEN 7 MG/DL (7-18); BUN/CREATININE RATIO 8; CALCIUM 8.6 MG/DL (8.5-10.1); CARBON DIOXIDE 22 MMOL/L (21-32); CHLORIDE 103 MMOL/L (98-107); CREATININE SERUM 0.83 MG/DL (0.60-1.30); GFR ESTIMATED > 60; GLUCOSE 106 MG/DL (70-105); MAGNESIUM 1.4 MG/DL (1.8-2.4); POTASSIUM 4.3 MMOL/L (3.6-5.0); SODIUM 135 MMOL/L (135-145)
== END 2017-02-27 | disposition home or self-care (01) ==
LOC: ONC 12:11
PROVIDERS: ATTEND Internal Medicine Hematology & Oncology
DX: Z51.11 Encounter for antineoplastic chemotherapy (principal); C34.11 Malignant neoplasm of upper lobe, right bronchus or lung; F17.210 Nicotine dependence, cigarettes, uncomplicated; R63.4 Abnormal weight loss; I73.89 Other specified peripheral vascular diseases; I25.10 Atherosclerotic heart disease of native coronary artery without angina pectoris; I25.2 Old myocardial infarction; G40.909 Epilepsy, unspecified, not intractable, without status epilepticus; Z79.899 Other long term (current) drug therapy
CPT/HCPCS: 36591; 80048; 80053; 83735; 84443; 85025; 96375; 96413; 96417; 99213

== ENCOUNTER → 2017-03-15 | Outpatient (CLI) | payer MEDICAID ==
[~2017-03-15] MED LIST changes: -ACETAMINOPHEN 500 MG TAB (TYLENOL) CANCER CTR ONE; -CARBOPLATIN IV SCH; -D5W IV SCH; -FAMOTIDINE 20MG/2ML IV (CANCER CTR) IV SCH; +GADOBUTROL 7.5 MMOL/7.5 ML (GADAVIST) VIAL IV ONE; -NIVOLUMAB 200 MG, NIVOLUMAB 40 MG in NS (IVPB) CANCER CENTER 50 ML IV SCH; -NORMAL SALINE IV SCH; -NS IV 1000 ML (CANCER CTR) 1,000 ML ONE; -NS IV 500 ML (CANCER CENTER) 0 ML ONE; -NS IV 500 ML (CANCER CENTER) IV SCH; -ONDANSETRON 16 MG, DEXAMETHASONE 10 MG/NS 50 ML IVPB IV SCH; -PACLITAXEL 130 MG in NORMAL SALINE (CANCER CENTER) 250 ML IV SCH; -PACLITAXEL IV SCH; -diphenhydrAMINE 25 MG TAB (BENADRYL) CANCER CENTER PO ONE; -diphenhydrAMINE 25 MG TAB (BENADRYL) CANCER CENTER PO SCH
--- NOTE | 2017-03-15 12:50 | Diagnostic Imaging Report ---
PROCEDURE: MR imaging of the brain with and without contrast. TECHNIQUE: Multiplanar, multisequence MR imaging of the brain was performed with and without contrast. INDICATION: History of lung cancer. COMPARISON: 11/07/2016. 6 mL of Gadavist is administered intravenously. FINDINGS: There is no diffusion restriction to suggest an acute infarct or other diffusion abnormality. There is an enhancing lesion measuring 5 mm seen along the left parietal operculum near the sylvian fissure. This is significantly smaller compared to the prior study when it measured 1 cm in size. There is also improvement in the adjacent T2 hyperintense signal and brain edema. There is other periventricular and deep white matter T2 hyperintense signal compatible with chronic microvascular ischemic changes. No hydrocephalus. The pituitary gland is normal in size. No hypothalamic or pineal region mass. No other enhancing lesions to suggest metastasis. The central vascular flow-voids appear grossly unremarkable. There is fluid signal seen in the left mastoid air cells. The ethmoidal air cells demonstrate mild mucosal thickening. IMPRESSION: There is interval improvement with the previously seen 1 cm mass reduced now to a 5 mm enhancing nodule along the left parietal operculum near the posterior aspect of the sylvian fissure. This is presumably metastatic. No other brain metastases seen. Dictated by: Dictated on workstation # [id number]
== END ==
LOC: RAD 09:09
PROVIDERS: ATTEND Internal Medicine Hematology & Oncology
DX: G93.9 Disorder of brain, unspecified (principal); H53.2 Diplopia
CPT/HCPCS: 70553

== ENCOUNTER 2017-05-02 09:22 | Outpatient (RCR) | payer MEDICAID ==
[2017-03-07 13:37] LABS: BASOPHILS % (AUTO) 0 % (0-10); EOSINOPHILS # (AUTO) 0.2 10^3/uL (0.0-0.3); EOSINOPHILS % (AUTO) 3 % (0-10); LYMPHOCYTES # (AUTO) 1.5 X 10^3 (1.0-4.0); LYMPHOCYTES % (AUTO) 18 % (12-44); MEAN CORPUSCULAR HEMOGLOBIN 32 PG (25-34); MEAN CORPUSCULAR HGB CONC 33 G/DL (32-36); MEAN CORPUSCULAR VOLUME 96 FL (80-99); MEAN PLATELET VOLUME 8.6 FL (7.4-10.4); MONOCYTES # (AUTO) 1.1 X 10^3 (0.0-1.0); MONOCYTES % (AUTO) 13 % (0-12); NEUTROPHILS # (AUTO) 5.3 X 10^3 (1.8-7.8); NEUTROPHILS % (AUTO) 66 % (42-75); PLATELET COUNT 289 10^3/uL (130-400); RED BLOOD COUNT 3.96 10^6/uL (4.35-5.85); RED CELL DISTRIBUTION WIDTH 13.2 % (10.0-14.5); WHITE BLOOD COUNT 8.1 10^3/uL (4.3-11.0)
[2017-03-07 14:01] LABS: ALANINE AMINOTRANSFERASE 17 U/L (0-55); ALBUMIN 3.8 GM/DL (3.2-4.5); ANION GAP 11 MMOL/L (5-14); ASPARTATE AMINO TRANSFERASE 13 U/L (5-34); BILIRUBIN,TOTAL 0.2 MG/DL (0.1-1.0); BLOOD UREA NITROGEN 7 MG/DL (7-18); BUN/CREATININE RATIO 9; CALCIUM 8.9 MG/DL (8.5-10.1); CARBON DIOXIDE 22 MMOL/L (21-32); CHLORIDE 106 MMOL/L (98-107); CREATININE SERUM 0.76 MG/DL (0.60-1.30); GFR ESTIMATED > 60; GLUCOSE 133 MG/DL (70-105); POTASSIUM 3.7 MMOL/L (3.6-5.0); SODIUM 139 MMOL/L (135-145)
[2017-03-07 14:22] LABS: THYROID STIMULATING HORMONE 0.78 UIU/ML (0.35-4.94)
[2017-03-21 12:59] LABS: BASOPHILS % (AUTO) 1 % (0-10); EOSINOPHILS # (AUTO) 0.2 10^3/uL (0.0-0.3); EOSINOPHILS % (AUTO) 3 % (0-10); LYMPHOCYTES # (AUTO) 1.5 X 10^3 (1.0-4.0); LYMPHOCYTES % (AUTO) 19 % (12-44); MEAN CORPUSCULAR HEMOGLOBIN 32 PG (25-34); MEAN CORPUSCULAR HGB CONC 35 G/DL (32-36); MEAN CORPUSCULAR VOLUME 93 FL (80-99); MEAN PLATELET VOLUME 8.7 FL (7.4-10.4); MONOCYTES # (AUTO) 0.8 X 10^3 (0.0-1.0); MONOCYTES % (AUTO) 10 % (0-12); NEUTROPHILS # (AUTO) 5.5 X 10^3 (1.8-7.8); NEUTROPHILS % (AUTO) 68 % (42-75); PLATELET COUNT 355 10^3/uL (130-400); RED BLOOD COUNT 4.09 10^6/uL (4.35-5.85); RED CELL DISTRIBUTION WIDTH 13.1 % (10.0-14.5); WHITE BLOOD COUNT 8.1 10^3/uL (4.3-11.0)
[2017-03-21 13:20] LABS: ANION GAP 9 MMOL/L (5-14); BLOOD UREA NITROGEN 5 MG/DL (7-18); BUN/CREATININE RATIO 7; CALCIUM 8.6 MG/DL (8.5-10.1); CARBON DIOXIDE 24 MMOL/L (21-32); CHLORIDE 104 MMOL/L (98-107); GFR ESTIMATED > 60; GLUCOSE 91 MG/DL (70-105); MAGNESIUM 1.6 MG/DL (1.8-2.4); POTASSIUM 3.9 MMOL/L (3.6-5.0); SODIUM 137 MMOL/L (135-145)
[2017-04-04 12:33] LABS: BASOPHILS % (AUTO) 0 % (0-10); EOSINOPHILS # (AUTO) 0.2 10^3/uL (0.0-0.3); EOSINOPHILS % (AUTO) 2 % (0-10); LYMPHOCYTES # (AUTO) 1.6 X 10^3 (1.0-4.0); LYMPHOCYTES % (AUTO) 17 % (12-44); MEAN CORPUSCULAR HEMOGLOBIN 32 PG (25-34); MEAN CORPUSCULAR HGB CONC 34 G/DL (32-36); MEAN CORPUSCULAR VOLUME 93 FL (80-99); MEAN PLATELET VOLUME 8.9 FL (7.4-10.4); MONOCYTES # (AUTO) 0.9 X 10^3 (0.0-1.0); MONOCYTES % (AUTO) 10 % (0-12); NEUTROPHILS # (AUTO) 6.6 X 10^3 (1.8-7.8); NEUTROPHILS % (AUTO) 70 % (42-75); PLATELET COUNT 296 10^3/uL (130-400); RED BLOOD COUNT 4.22 10^6/uL (4.35-5.85); WHITE BLOOD COUNT 9.3 10^3/uL (4.3-11.0)
[2017-04-04 12:56] LABS: ALANINE AMINOTRANSFERASE 15 U/L (0-55); ALBUMIN 3.6 GM/DL (3.2-4.5); ANION GAP 7 MMOL/L (5-14); ASPARTATE AMINO TRANSFERASE 17 U/L (5-34); BILIRUBIN,TOTAL 0.2 MG/DL (0.1-1.0); BLOOD UREA NITROGEN 6 MG/DL (7-18); BUN/CREATININE RATIO 8; CALCIUM 8.6 MG/DL (8.5-10.1); CARBON DIOXIDE 27 MMOL/L (21-32); CHLORIDE 105 MMOL/L (98-107); CREATININE SERUM 0.74 MG/DL (0.60-1.30); GFR ESTIMATED > 60; GLUCOSE 101 MG/DL (70-105); SODIUM 139 MMOL/L (135-145); TOTAL PROTEIN 6.7 GM/DL (6.4-8.2)
[2017-04-18 09:59] LABS: BASOPHILS % (AUTO) 0 % (0-10); EOSINOPHILS # (AUTO) 0.2 10^3/uL (0.0-0.3); EOSINOPHILS % (AUTO) 3 % (0-10); LYMPHOCYTES # (AUTO) 1.2 X 10^3 (1.0-4.0); LYMPHOCYTES % (AUTO) 15 % (12-44); MEAN CORPUSCULAR HEMOGLOBIN 32 PG (25-34); MEAN CORPUSCULAR HGB CONC 34 G/DL (32-36); MEAN CORPUSCULAR VOLUME 92 FL (80-99); MEAN PLATELET VOLUME 8.8 FL (7.4-10.4); MONOCYTES # (AUTO) 0.8 X 10^3 (0.0-1.0); MONOCYTES % (AUTO) 10 % (0-12); NEUTROPHILS # (AUTO) 5.9 X 10^3 (1.8-7.8); NEUTROPHILS % (AUTO) 72 % (42-75); PLATELET COUNT 329 10^3/uL (130-400); RED BLOOD COUNT 4.17 10^6/uL (4.35-5.85); RED CELL DISTRIBUTION WIDTH 13.3 % (10.0-14.5); WHITE BLOOD COUNT 8.2 10^3/uL (4.3-11.0)
[2017-04-18 10:25] LABS: ALANINE AMINOTRANSFERASE 17 U/L (0-55); ALBUMIN 3.6 GM/DL (3.2-4.5); ANION GAP 10 MMOL/L (5-14); ASPARTATE AMINO TRANSFERASE 17 U/L (5-34); BILIRUBIN,TOTAL 0.2 MG/DL (0.1-1.0); BLOOD UREA NITROGEN 4 MG/DL (7-18); BUN/CREATININE RATIO 6; CALCIUM 8.3 MG/DL (8.5-10.1); CARBON DIOXIDE 22 MMOL/L (21-32); CHLORIDE 106 MMOL/L (98-107); CREATININE SERUM 0.72 MG/DL (0.60-1.30); GFR ESTIMATED > 60; GLUCOSE 100 MG/DL (70-105); POTASSIUM 3.5 MMOL/L (3.6-5.0); SODIUM 138 MMOL/L (135-145); TOTAL PROTEIN 6.7 GM/DL (6.4-8.2)
[~2017-05-02] VITALS: Ht 177.8 cm; Wt 59.4 kg
[~2017-05-02 09:22] MED LIST changes: -GADOBUTROL 7.5 MMOL/7.5 ML (GADAVIST) VIAL IV ONE; +NIVOLUMAB 200 MG, NIVOLUMAB 40 MG in NS (IVPB) CANCER CENTER 50 ML IV SCH
[2017-05-02 09:45] LABS: BASOPHILS % (AUTO) 0 % (0-10); EOSINOPHILS # (AUTO) 0.2 10^3/uL (0.0-0.3); EOSINOPHILS % (AUTO) 2 % (0-10); LYMPHOCYTES # (AUTO) 1.4 X 10^3 (1.0-4.0); LYMPHOCYTES % (AUTO) 14 % (12-44); MEAN CORPUSCULAR HEMOGLOBIN 31 PG (25-34); MEAN CORPUSCULAR HGB CONC 35 G/DL (32-36); MEAN CORPUSCULAR VOLUME 91 FL (80-99); MEAN PLATELET VOLUME 9.1 FL (7.4-10.4); MONOCYTES # (AUTO) 0.9 X 10^3 (0.0-1.0); MONOCYTES % (AUTO) 10 % (0-12); NEUTROPHILS # (AUTO) 7.3 X 10^3 (1.8-7.8); NEUTROPHILS % (AUTO) 74 % (42-75); PLATELET COUNT 299 10^3/uL (130-400); RED CELL DISTRIBUTION WIDTH 12.9 % (10.0-14.5); WHITE BLOOD COUNT 9.9 10^3/uL (4.3-11.0)
[2017-05-02 10:02] LABS: ALANINE AMINOTRANSFERASE 19 U/L (0-55); ALBUMIN 3.6 GM/DL (3.2-4.5); ANION GAP 10 MMOL/L (5-14); ASPARTATE AMINO TRANSFERASE 19 U/L (5-34); BILIRUBIN,TOTAL 0.2 MG/DL (0.1-1.0); BLOOD UREA NITROGEN 5 MG/DL (7-18); BUN/CREATININE RATIO 6; CALCIUM 8.1 MG/DL (8.5-10.1); CARBON DIOXIDE 20 MMOL/L (21-32); CHLORIDE 106 MMOL/L (98-107); CREATININE SERUM 0.82 MG/DL (0.60-1.30); GFR ESTIMATED > 60; GLUCOSE 106 MG/DL (70-105); POTASSIUM 3.3 MMOL/L (3.6-5.0); SODIUM 136 MMOL/L (135-145); TOTAL PROTEIN 6.9 GM/DL (6.4-8.2)
== END 2017-05-06 | disposition home or self-care (01) ==
LOC: ONC 09:22
PROVIDERS: ATTEND Internal Medicine Hematology & Oncology
DX: C34.11 Malignant neoplasm of upper lobe, right bronchus or lung; I25.10 Atherosclerotic heart disease of native coronary artery without angina pectoris; I25.2 Old myocardial infarction; F17.210 Nicotine dependence, cigarettes, uncomplicated; Z51.11 Encounter for antineoplastic chemotherapy; G40.909 Epilepsy, unspecified, not intractable, without status epilepticus; R63.4 Abnormal weight loss; I73.89 Other specified peripheral vascular diseases; Z79.899 Other long term (current) drug therapy
CPT/HCPCS: 36591; 80048; 80053; 80185; 83735; 84439; 84443; 85025; 96413; 99213

== ENCOUNTER 2017-05-16 10:40 | Outpatient (RCR) | payer MEDICAID ==
[2017-05-16 10:56] LABS: BASOPHILS # (AUTO) 0.1 10^3/uL (0.0-0.1); BASOPHILS % (AUTO) 1 % (0-10); EOSINOPHILS # (AUTO) 0.2 10^3/uL (0.0-0.3); EOSINOPHILS % (AUTO) 2 % (0-10); LYMPHOCYTES # (AUTO) 1.6 X 10^3 (1.0-4.0); LYMPHOCYTES % (AUTO) 14 % (12-44); MEAN CORPUSCULAR HEMOGLOBIN 32 PG (25-34); MEAN CORPUSCULAR HGB CONC 34 G/DL (32-36); MEAN CORPUSCULAR VOLUME 93 FL (80-99); MEAN PLATELET VOLUME 8.7 FL (7.4-10.4); MONOCYTES # (AUTO) 0.7 X 10^3 (0.0-1.0); MONOCYTES % (AUTO) 7 % (0-12); NEUTROPHILS # (AUTO) 8.3 X 10^3 (1.8-7.8); NEUTROPHILS % (AUTO) 77 % (42-75); PLATELET COUNT 331 10^3/uL (130-400); RED BLOOD COUNT 4.16 10^6/uL (4.35-5.85); RED CELL DISTRIBUTION WIDTH 13.2 % (10.0-14.5); WHITE BLOOD COUNT 10.8 10^3/uL (4.3-11.0)
[2017-05-16 11:17] LABS: ANION GAP 8 MMOL/L (5-14); BLOOD UREA NITROGEN 5 MG/DL (7-18); BUN/CREATININE RATIO 6; CALCIUM 8.5 MG/DL (8.5-10.1); CARBON DIOXIDE 25 MMOL/L (21-32); CHLORIDE 106 MMOL/L (98-107); CREATININE SERUM 0.78 MG/DL (0.60-1.30); GFR ESTIMATED > 60; GLUCOSE 88 MG/DL (70-105); POTASSIUM 3.9 MMOL/L (3.6-5.0); SODIUM 139 MMOL/L (135-145)
[2017-05-30 10:18] LABS: BASOPHILS % (AUTO) 0 % (0-10); EOSINOPHILS # (AUTO) 0.2 10^3/uL (0.0-0.3); EOSINOPHILS % (AUTO) 3 % (0-10); LYMPHOCYTES # (AUTO) 1.4 X 10^3 (1.0-4.0); LYMPHOCYTES % (AUTO) 18 % (12-44); MEAN CORPUSCULAR HEMOGLOBIN 31 PG (25-34); MEAN CORPUSCULAR HGB CONC 34 G/DL (32-36); MEAN CORPUSCULAR VOLUME 90 FL (80-99); MEAN PLATELET VOLUME 8.6 FL (7.4-10.4); MONOCYTES # (AUTO) 0.7 X 10^3 (0.0-1.0); MONOCYTES % (AUTO) 9 % (0-12); NEUTROPHILS # (AUTO) 5.7 X 10^3 (1.8-7.8); NEUTROPHILS % (AUTO) 71 % (42-75); PLATELET COUNT 322 10^3/uL (130-400); RED BLOOD COUNT 4.13 10^6/uL (4.35-5.85); RED CELL DISTRIBUTION WIDTH 13.4 % (10.0-14.5)
[2017-05-30 10:28] LABS: ALANINE AMINOTRANSFERASE 10 U/L (0-55); ALBUMIN 3.5 GM/DL (3.2-4.5); ANION GAP 7 MMOL/L (5-14); ASPARTATE AMINO TRANSFERASE 11 U/L (5-34); BILIRUBIN,TOTAL 0.2 MG/DL (0.1-1.0); BLOOD UREA NITROGEN 6 MG/DL (7-18); BUN/CREATININE RATIO 7; CALCIUM 8.5 MG/DL (8.5-10.1); CARBON DIOXIDE 23 MMOL/L (21-32); CHLORIDE 103 MMOL/L (98-107); CREATININE SERUM 0.82 MG/DL (0.60-1.30); GFR ESTIMATED > 60; GLUCOSE 135 MG/DL (70-105); SODIUM 133 MMOL/L (135-145); TOTAL PROTEIN 6.4 GM/DL (6.4-8.2)
== END 2017-05-30 08:09 | disposition home or self-care (01) ==
LOC: ONC 10:40
PROVIDERS: ATTEND Internal Medicine Hematology & Oncology
DX: Z51.11 Encounter for antineoplastic chemotherapy (principal); C34.11 Malignant neoplasm of upper lobe, right bronchus or lung; F17.210 Nicotine dependence, cigarettes, uncomplicated; I73.89 Other specified peripheral vascular diseases; I25.10 Atherosclerotic heart disease of native coronary artery without angina pectoris; I25.2 Old myocardial infarction; G40.909 Epilepsy, unspecified, not intractable, without status epilepticus; Z79.899 Other long term (current) drug therapy
CPT/HCPCS: 36591; 80048; 80053; 85025; 96413

== ENCOUNTER → 2017-07-04 | Outpatient (CLI) | payer MEDICAID ==
[~2017-07-04] MED LIST changes: +BARIUM SUSPENSION 2.1% (VANILLA SILQ) 450 ML PO ONE; +CATHETER FLUSH 10 ML SYR IV PRN; +IOHEXOL 350 MG/ML 100 ML (OMNIPAQUE 350) VIAL IV ONE; -NIVOLUMAB 200 MG, NIVOLUMAB 40 MG in NS (IVPB) CANCER CENTER 50 ML IV SCH; +NS 100 ML (IVPB) BAG IV ONE
--- NOTE | 2017-07-04 18:44 | Diagnostic Imaging Report ---
PROCEDURE: CT chest, abdomen, and pelvis with contrast. TECHNIQUE: Multiple contiguous axial images were obtained through the chest, abdomen, and pelvis after the administration of intravenous contrast. INDICATION: History of esophageal cancer, now with cough. COMPARISON: Study compared to 12/22/2016. FINDINGS: Chest: Spiculated mass in right upper lobe today is 3.3 x 2.8 cm, decreased from prior when it had measured 4.7 x 3.6 cm. Mediastinal infiltration pretracheal at and just above the level of the alexander is improved, now with an AP thickness of 9 mm, previously 11 mm. Subcarinal lesion in short axis 10 mm, previously 15 mm. While difficult to quantify, the soft tissue fullness of the pulmonary radha has improved as well. Findings superimposed upon chronic benign calcified granulomatous residua, that benign disease stable. There has been no adverse development. No thoracic effusion. The osseous structures are nonacute. Abdomen and pelvis: A right adrenal mass was previously well visualized and could no longer be found. On the previous exam, there was some nodular thickening of the left adrenal gland at its isthmus. This is also no longer apparent. There is no liver mass. The pancreas is unremarkable. The campo aorta and campo bilateral iliacs occluded. There is patent bilateral iliac bypass and common femoral stents. Severe atherosclerotic disease involves the visualized proximal SFA and profunda. [place] bilateral common iliac stents are also occluded. This is chronic. There is no ascites. The left lower quadrant diverting ostomy is present. The rectum oversewn with no leslye-sutural mass or fluid collection. No adverse development. IMPRESSION: 1. Chest: Spiculated right upper lobe mass and thoracic adenopathy, all improved with no adverse development. 2. Abdomen: Resolution of bilateral adrenal nodules. Stable negative liver. No adverse development. 3. Pelvis: Stable postsurgical findings with no adenopathy, mass, or adverse development. Dictated by: Dictated on workstation # [id number]
== END ==
LOC: RAD 10:34
PROVIDERS: ATTEND Internal Medicine Hematology & Oncology
DX: C34.11 Malignant neoplasm of upper lobe, right bronchus or lung (principal); R05 Cough; Z95.828 Presence of other vascular implants and grafts
CPT/HCPCS: 71260; 74177

== ENCOUNTER 2017-07-25 10:35 | Outpatient (RCR) | payer MEDICAID ==
[2017-06-27 11:33] LABS: BASOPHILS # (AUTO) 0.1 10^3/uL (0.0-0.1); BASOPHILS % (AUTO) 1 % (0-10); EOSINOPHILS # (AUTO) 0.3 10^3/uL (0.0-0.3); EOSINOPHILS % (AUTO) 2 % (0-10); HEMATOCRIT 38 % (40-54); LYMPHOCYTES # (AUTO) 1.8 X 10^3 (1.0-4.0); LYMPHOCYTES % (AUTO) 16 % (12-44); MEAN CORPUSCULAR HEMOGLOBIN 32 PG (25-34); MEAN CORPUSCULAR HGB CONC 35 G/DL (32-36); MEAN CORPUSCULAR VOLUME 91 FL (80-99); MEAN PLATELET VOLUME 8.9 FL (7.4-10.4); MONOCYTES # (AUTO) 1.1 X 10^3 (0.0-1.0); MONOCYTES % (AUTO) 9 % (0-12); NEUTROPHILS # (AUTO) 8.5 X 10^3 (1.8-7.8); NEUTROPHILS % (AUTO) 72 % (42-75); PLATELET COUNT 357 10^3/uL (130-400); RED BLOOD COUNT 4.12 10^6/uL (4.35-5.85); RED CELL DISTRIBUTION WIDTH 13.4 % (10.0-14.5); WHITE BLOOD COUNT 11.8 10^3/uL (4.3-11.0)
[2017-06-27 11:49] LABS: ALANINE AMINOTRANSFERASE 11 U/L (0-55); ALBUMIN 3.5 GM/DL (3.2-4.5); ALKALINE PHOSPHATASE 159 U/L (40-136); BILIRUBIN,TOTAL 0.3 MG/DL (0.1-1.0); BUN/CREATININE RATIO 8; CALCIUM 8.4 MG/DL (8.5-10.1); CARBON DIOXIDE 23 MMOL/L (21-32); CHLORIDE 105 MMOL/L (98-107); CREATININE SERUM 0.77 MG/DL (0.60-1.30); GFR ESTIMATED > 60; GLUCOSE 75 MG/DL (70-105); POTASSIUM 4.1 MMOL/L (3.6-5.0); SODIUM 138 MMOL/L (135-145); TOTAL PROTEIN 6.8 GM/DL (6.4-8.2)
[2017-07-11 10:20] LABS: BASOPHILS % (AUTO) 0 % (0-10); EOSINOPHILS # (AUTO) 0.3 10^3/uL (0.0-0.3); EOSINOPHILS % (AUTO) 3 % (0-10); HEMATOCRIT 36 % (40-54); HEMOGLOBIN 12.4 G/DL (13.3-17.7); LYMPHOCYTES # (AUTO) 1.6 X 10^3 (1.0-4.0); LYMPHOCYTES % (AUTO) 14 % (12-44); MEAN CORPUSCULAR HEMOGLOBIN 32 PG (25-34); MEAN CORPUSCULAR HGB CONC 35 G/DL (32-36); MEAN CORPUSCULAR VOLUME 92 FL (80-99); MEAN PLATELET VOLUME 8.8 FL (7.4-10.4); MONOCYTES % (AUTO) 9 % (0-12); NEUTROPHILS # (AUTO) 8.2 X 10^3 (1.8-7.8); NEUTROPHILS % (AUTO) 74 % (42-75); PLATELET COUNT 299 10^3/uL (130-400); RED CELL DISTRIBUTION WIDTH 13.5 % (10.0-14.5); WHITE BLOOD COUNT 11.2 10^3/uL (4.3-11.0)
[2017-07-11 10:39] LABS: ALANINE AMINOTRANSFERASE 9 U/L (0-55); ALBUMIN 3.5 GM/DL (3.2-4.5); ALKALINE PHOSPHATASE 136 U/L (40-136); BILIRUBIN,TOTAL 0.4 MG/DL (0.1-1.0); BUN/CREATININE RATIO 8; CALCIUM 8.4 MG/DL (8.5-10.1); CARBON DIOXIDE 24 MMOL/L (21-32); CHLORIDE 104 MMOL/L (98-107); GFR ESTIMATED > 60; GLUCOSE 84 MG/DL (70-105); POTASSIUM 4.2 MMOL/L (3.6-5.0); SODIUM 137 MMOL/L (135-145); TOTAL PROTEIN 6.5 GM/DL (6.4-8.2)
[~2017-07-25 10:35] MED LIST changes: -BARIUM SUSPENSION 2.1% (VANILLA SILQ) 450 ML PO ONE; -CATHETER FLUSH 10 ML SYR IV PRN; -IOHEXOL 350 MG/ML 100 ML (OMNIPAQUE 350) VIAL IV ONE; +NIVOLUMAB 200 MG, NIVOLUMAB 40 MG in NS (IVPB) CANCER CENTER 50 ML IV SCH; -NS 100 ML (IVPB) BAG IV ONE
[2017-07-25 10:59] LABS: BASOPHILS % (AUTO) 0 % (0-10); EOSINOPHILS # (AUTO) 0.4 10^3/uL (0.0-0.3); EOSINOPHILS % (AUTO) 4 % (0-10); HEMATOCRIT 38 % (40-54); LYMPHOCYTES # (AUTO) 1.6 X 10^3 (1.0-4.0); LYMPHOCYTES % (AUTO) 16 % (12-44); MEAN CORPUSCULAR HEMOGLOBIN 32 PG (25-34); MEAN CORPUSCULAR HGB CONC 34 G/DL (32-36); MEAN CORPUSCULAR VOLUME 92 FL (80-99); MEAN PLATELET VOLUME 8.6 FL (7.4-10.4); MONOCYTES # (AUTO) 0.8 X 10^3 (0.0-1.0); MONOCYTES % (AUTO) 8 % (0-12); NEUTROPHILS % (AUTO) 71 % (42-75); PLATELET COUNT 351 10^3/uL (130-400); RED BLOOD COUNT 4.12 10^6/uL (4.35-5.85); RED CELL DISTRIBUTION WIDTH 13.6 % (10.0-14.5); WHITE BLOOD COUNT 9.8 10^3/uL (4.3-11.0)
[2017-07-25 11:16] LABS: BUN/CREATININE RATIO 8; CALCIUM 8.7 MG/DL (8.5-10.1); CARBON DIOXIDE 25 MMOL/L (21-32); CHLORIDE 104 MMOL/L (98-107); CREATININE SERUM 0.78 MG/DL (0.60-1.30); GFR ESTIMATED > 60; GLUCOSE 89 MG/DL (70-105); MAGNESIUM 1.7 MG/DL (1.8-2.4); POTASSIUM 4.4 MMOL/L (3.6-5.0); SODIUM 138 MMOL/L (135-145)
== END 2017-08-08 14:38 | disposition home or self-care (01) ==
LOC: ONC 10:35
PROVIDERS: ATTEND Internal Medicine Hematology & Oncology
DX: Z51.11 Encounter for antineoplastic chemotherapy (principal); C34.11 Malignant neoplasm of upper lobe, right bronchus or lung; F17.210 Nicotine dependence, cigarettes, uncomplicated; I25.10 Atherosclerotic heart disease of native coronary artery without angina pectoris; I25.2 Old myocardial infarction; G40.909 Epilepsy, unspecified, not intractable, without status epilepticus; Z79.899 Other long term (current) drug therapy; H53.2 Diplopia
CPT/HCPCS: 36591; 80048; 80053; 83735; 85025; 96413

== ENCOUNTER 2017-08-09 10:21 | Outpatient (RCR) | payer MEDICAID ==
[2017-08-09 10:53] LABS: BASOPHILS # (AUTO) 0.1 10^3/uL (0.0-0.1); BASOPHILS % (AUTO) 1 % (0-10); EOSINOPHILS # (AUTO) 0.4 10^3/uL (0.0-0.3); EOSINOPHILS % (AUTO) 3 % (0-10); HEMATOCRIT 37 % (40-54); HEMOGLOBIN 12.6 G/DL (13.3-17.7); LYMPHOCYTES # (AUTO) 1.6 X 10^3 (1.0-4.0); LYMPHOCYTES % (AUTO) 14 % (12-44); MEAN CORPUSCULAR HEMOGLOBIN 31 PG (25-34); MEAN CORPUSCULAR HGB CONC 34 G/DL (32-36); MEAN CORPUSCULAR VOLUME 90 FL (80-99); MEAN PLATELET VOLUME 8.6 FL (7.4-10.4); MONOCYTES % (AUTO) 9 % (0-12); NEUTROPHILS # (AUTO) 8.1 X 10^3 (1.8-7.8); NEUTROPHILS % (AUTO) 73 % (42-75); PLATELET COUNT 314 10^3/uL (130-400); RED BLOOD COUNT 4.08 10^6/uL (4.35-5.85); RED CELL DISTRIBUTION WIDTH 13.1 % (10.0-14.5)
[2017-08-09 11:11] LABS: ALANINE AMINOTRANSFERASE 10 U/L (0-55); ALBUMIN 3.6 GM/DL (3.2-4.5); ALKALINE PHOSPHATASE 151 U/L (40-136); BILIRUBIN,TOTAL 0.3 MG/DL (0.1-1.0); BUN/CREATININE RATIO 8; CALCIUM 8.4 MG/DL (8.5-10.1); CARBON DIOXIDE 22 MMOL/L (21-32); CHLORIDE 101 MMOL/L (98-107); CREATININE SERUM 0.78 MG/DL (0.60-1.30); GFR ESTIMATED > 60; GLUCOSE 104 MG/DL (70-105); MAGNESIUM 1.6 MG/DL (1.8-2.4); POTASSIUM 4.4 MMOL/L (3.6-5.0); SODIUM 132 MMOL/L (135-145); TOTAL PROTEIN 6.4 GM/DL (6.4-8.2)
[2017-09-06 12:57] LABS: BASOPHILS # (AUTO) 0.1 10^3/uL (0.0-0.1); BASOPHILS % (AUTO) 1 % (0-10); EOSINOPHILS # (AUTO) 0.4 10^3/uL (0.0-0.3); EOSINOPHILS % (AUTO) 4 % (0-10); HEMATOCRIT 34 % (40-54); HEMOGLOBIN 11.9 G/DL (13.3-17.7); LYMPHOCYTES # (AUTO) 1.4 X 10^3 (1.0-4.0); LYMPHOCYTES % (AUTO) 16 % (12-44); MEAN CORPUSCULAR HEMOGLOBIN 32 PG (25-34); MEAN CORPUSCULAR HGB CONC 35 G/DL (32-36); MEAN CORPUSCULAR VOLUME 90 FL (80-99); MEAN PLATELET VOLUME 8.5 FL (7.4-10.4); MONOCYTES % (AUTO) 11 % (0-12); NEUTROPHILS # (AUTO) 6.2 X 10^3 (1.8-7.8); NEUTROPHILS % (AUTO) 69 % (42-75); PLATELET COUNT 404 10^3/uL (130-400); RED BLOOD COUNT 3.74 10^6/uL (4.35-5.85); RED CELL DISTRIBUTION WIDTH 13.2 % (10.0-14.5)
[2017-09-06 13:16] LABS: ALANINE AMINOTRANSFERASE 10 U/L (0-55); ALBUMIN 3.3 GM/DL (3.2-4.5); ALKALINE PHOSPHATASE 201 U/L (40-136); BILIRUBIN,TOTAL 0.2 MG/DL (0.1-1.0); BUN/CREATININE RATIO 5; CALCIUM 7.9 MG/DL (8.5-10.1); CARBON DIOXIDE 21 MMOL/L (21-32); CHLORIDE 103 MMOL/L (98-107); CREATININE SERUM 0.76 MG/DL (0.60-1.30); GFR ESTIMATED > 60; GLUCOSE 82 MG/DL (70-105); POTASSIUM 4.1 MMOL/L (3.6-5.0); SODIUM 132 MMOL/L (135-145); TOTAL PROTEIN 6.3 GM/DL (6.4-8.2)
== END 2017-09-06 15:29 | disposition home or self-care (01) ==
LOC: ONC 10:21
PROVIDERS: ATTEND Internal Medicine Hematology & Oncology
DX: Z51.11 Encounter for antineoplastic chemotherapy (principal); C34.11 Malignant neoplasm of upper lobe, right bronchus or lung; F17.210 Nicotine dependence, cigarettes, uncomplicated; I25.10 Atherosclerotic heart disease of native coronary artery without angina pectoris; I25.2 Old myocardial infarction; G40.909 Epilepsy, unspecified, not intractable, without status epilepticus; Z79.899 Other long term (current) drug therapy
CPT/HCPCS: 36591; 80053; 83735; 84443; 85025; 96413

== ENCOUNTER 2018-01-08 13:30 | Outpatient (RCR) | payer MEDICAID ==
[2017-12-25 14:04] LABS: BASOPHILS # (AUTO) 0.1 10^3/uL (0.0-0.1); BASOPHILS % (AUTO) 1 % (0-10); EOSINOPHILS # (AUTO) 0.2 10^3/uL (0.0-0.3); EOSINOPHILS % (AUTO) 2 % (0-10); HEMATOCRIT 35 % (40-54); HEMOGLOBIN 12.4 G/DL (13.3-17.7); LYMPHOCYTES # (AUTO) 1.8 X 10^3 (1.0-4.0); LYMPHOCYTES % (AUTO) 17 % (12-44); MEAN CORPUSCULAR HEMOGLOBIN 32 PG (25-34); MEAN CORPUSCULAR HGB CONC 35 G/DL (32-36); MEAN CORPUSCULAR VOLUME 90 FL (80-99); MEAN PLATELET VOLUME 8.7 FL (7.4-10.4); MONOCYTES # (AUTO) 1.1 X 10^3 (0.0-1.0); MONOCYTES % (AUTO) 10 % (0-12); NEUTROPHILS # (AUTO) 7.4 X 10^3 (1.8-7.8); NEUTROPHILS % (AUTO) 70 % (42-75); PLATELET COUNT 334 10^3/uL (130-400); RED BLOOD COUNT 3.92 10^6/uL (4.35-5.85); RED CELL DISTRIBUTION WIDTH 13.1 % (10.0-14.5); WHITE BLOOD COUNT 10.6 10^3/uL (4.3-11.0)
[2017-12-25 14:25] LABS: ALANINE AMINOTRANSFERASE 7 U/L (0-55); ALBUMIN 3.7 GM/DL (3.2-4.5); ALKALINE PHOSPHATASE 152 U/L (40-136); BILIRUBIN,TOTAL 0.2 MG/DL (0.1-1.0); BUN/CREATININE RATIO 6; CALCIUM 8.2 MG/DL (8.5-10.1); CARBON DIOXIDE 22 MMOL/L (21-32); CHLORIDE 102 MMOL/L (98-107); CREATININE SERUM 0.83 MG/DL (0.60-1.30); GFR ESTIMATED > 60; GLUCOSE 81 MG/DL (70-105); MAGNESIUM 1.4 MG/DL (1.8-2.4); POTASSIUM 3.9 MMOL/L (3.6-5.0); SODIUM 132 MMOL/L (135-145); TOTAL PROTEIN 6.6 GM/DL (6.4-8.2)
[~2018-01-08] VITALS: Ht 177.8 cm; Wt 67.1 kg
[2018-01-23 13:00] LABS: BASOPHILS # (AUTO) 0.1 10^3/uL (0.0-0.1); BASOPHILS % (AUTO) 1 % (0-10); EOSINOPHILS # (AUTO) 0.3 10^3/uL (0.0-0.3); EOSINOPHILS % (AUTO) 3 % (0-10); HEMATOCRIT 34 % (40-54); HEMOGLOBIN 11.9 G/DL (13.3-17.7); LYMPHOCYTES # (AUTO) 1.8 X 10^3 (1.0-4.0); LYMPHOCYTES % (AUTO) 17 % (12-44); MEAN CORPUSCULAR HGB CONC 35 G/DL (32-36); MEAN CORPUSCULAR VOLUME 89 FL (80-99); MEAN PLATELET VOLUME 8.7 FL (7.4-10.4); MONOCYTES % (AUTO) 9 % (0-12); NEUTROPHILS # (AUTO) 7.2 X 10^3 (1.8-7.8); NEUTROPHILS % (AUTO) 70 % (42-75); PLATELET COUNT 307 10^3/uL (130-400); RED BLOOD COUNT 3.78 10^6/uL (4.35-5.85); RED CELL DISTRIBUTION WIDTH 13.3 % (10.0-14.5); WHITE BLOOD COUNT 10.3 10^3/uL (4.3-11.0)
[2018-01-23 13:01] LABS: MEAN CORPUSCULAR HEMOGLOBIN 31 PG (25-34)
[2018-01-23 13:34] LABS: ALANINE AMINOTRANSFERASE 12 U/L (0-55); ALBUMIN 3.7 GM/DL (3.2-4.5); ALKALINE PHOSPHATASE 136 U/L (40-136); BILIRUBIN,TOTAL 0.3 MG/DL (0.1-1.0); BUN/CREATININE RATIO 6; CALCIUM 8.5 MG/DL (8.5-10.1); CARBON DIOXIDE 23 MMOL/L (21-32); CHLORIDE 100 MMOL/L (98-107); CREATININE SERUM 0.82 MG/DL (0.60-1.30); GFR ESTIMATED > 60; GLUCOSE 87 MG/DL (70-105); MAGNESIUM 1.5 MG/DL (1.8-2.4); POTASSIUM 4.4 MMOL/L (3.6-5.0); SODIUM 131 MMOL/L (135-145); TOTAL PROTEIN 6.4 GM/DL (6.4-8.2)
== END 2018-01-22 14:59 | disposition home or self-care (01) ==
LOC: ONC 13:30
PROVIDERS: ATTEND Internal Medicine Hematology & Oncology
DX: Z51.11 Encounter for antineoplastic chemotherapy (principal); C34.11 Malignant neoplasm of upper lobe, right bronchus or lung; F17.210 Nicotine dependence, cigarettes, uncomplicated; I25.10 Atherosclerotic heart disease of native coronary artery without angina pectoris; I25.2 Old myocardial infarction; G40.909 Epilepsy, unspecified, not intractable, without status epilepticus; Z79.899 Other long term (current) drug therapy
CPT/HCPCS: 36591; 80053; 83735; 85025; 96413

== ENCOUNTER → 2018-03-20 | Outpatient (CLI) | payer MEDICAID ==
[~2018-03-20] MED LIST changes: +GADOBUTROL 7.5 MMOL/7.5 ML (GADAVIST) VIAL IV ONE; -NIVOLUMAB 200 MG, NIVOLUMAB 40 MG in NS (IVPB) CANCER CENTER 50 ML IV SCH
--- NOTE | 2018-03-20 15:27 | Diagnostic Imaging Report ---
CLINICAL INDICATION: Patient has history of seizures since childhood and takes meds daily. Patient hasn't had a seizure for 7 years and he had one today. Patient complains of mild headache. Patient has history of lung cancer, 11/2015, with radiation and chemo treatments. EXAM: MRI of the brain performed without and with 6 cc of Gadavist IV contrast. Sequences include sagittal T1, axial DWI, ADC map, coronal 3D FSPGR, axial T1, axial T2, axial FLAIR, coronal gradient echo, coronal T2 thin, coronal FLAIR thin, axial T1 post IV contrast whole brain, coronal T1 fat-sat post IV contrast whole brain, and sagittal T1 post IV contrast whole brain. Of note, due to patient movement, postcontrast images had to be re-localized. COMPARISON: MRI of the brain performed without and with IV contrast dated 03/15/2017. FINDINGS: Motion artifact obscures some sequences. The previously seen 4 mm area of enhancement involving the left opercular region near the posterior left sylvian fissure has resolved. The previously seen small amount of high T2 signal in the region has slightly decreased. There are no new areas of abnormal IV contrast enhancement. There is relatively stable diffuse patchy and confluent areas of high T2 signal white matter changes seen throughout both cerebral hemispheres and periventricular regions which may be related to post treatment changes. Superimposed chronic small vessel ischemic disease and leukoaraiosis may also be considered. The brain parenchymal volume is stable. There is no hydrocephalus, intracranial hemorrhage, or acute cerebral infarct. There is no evidence of hippocampal sclerosis. The bilateral hippocampal structures are relatively symmetric and unremarkable as visualized. There is no heterotopic blandon matter, subependymal nodules, or gross vascular malformation. There is no brain herniation or midline shift. The [place] vascular structures show no gross abnormality as visualized. Basal cisterns are unremarkable. There is minimal mucosal thickening involving the ethmoid sinus and bilateral maxillary sinuses. There is small amount of fluid in both mastoid air cells. IMPRESSION: 1: Interval resolution of the small area of enhancement in the left opercular region near the posterior left sylvian fissure. There are no areas of abnormal IV contrast enhancement seen on this exam. There is currently no MRI evidence of metastatic disease. 2: Otherwise, relatively stable MRI of the brain with no evidence of interval acute intracranial process. 3: Again seen diffuse patchy and confluent areas of high T2 signal white matter changes involving both cerebral hemispheres which may be related to post treatment changes. Superimposed chronic small vessel ischemic disease and leukoaraiosis may also be present. Results of this report was discussed with Dr. Jacob Worrell via the telephone on 03/20/2018 at 1515 hrs. Dictated by: Dictated on workstation # [id number]
== END ==
LOC: RAD 13:44
PROVIDERS: ATTEND Internal Medicine Hematology & Oncology
DX: C79.31 Secondary malignant neoplasm of brain (principal); C34.11 Malignant neoplasm of upper lobe, right bronchus or lung; I67.82 Cerebral ischemia
CPT/HCPCS: 70553

== ENCOUNTER 2018-04-23 10:47 | Outpatient (RCR) | payer MEDICAID ==
[2018-03-20 13:52] LABS: BASOPHILS % (AUTO) 0 % (0-10); EOSINOPHILS # (AUTO) 0.1 10^3/uL (0.0-0.3); EOSINOPHILS % (AUTO) 1 % (0-10); HEMATOCRIT 34 % (40-54); HEMOGLOBIN 12.1 G/DL (13.3-17.7); LYMPHOCYTES # (AUTO) 0.9 X 10^3 (1.0-4.0); LYMPHOCYTES % (AUTO) 6 % (12-44); MEAN CORPUSCULAR HEMOGLOBIN 32 PG (25-34); MEAN CORPUSCULAR HGB CONC 36 G/DL (32-36); MEAN CORPUSCULAR VOLUME 88 FL (80-99); MEAN PLATELET VOLUME 8.6 FL (7.4-10.4); MONOCYTES # (AUTO) 1.2 X 10^3 (0.0-1.0); MONOCYTES % (AUTO) 8 % (0-12); NEUTROPHILS # (AUTO) 11.8 X 10^3 (1.8-7.8); NEUTROPHILS % (AUTO) 84 % (42-75); PLATELET COUNT 332 10^3/uL (130-400); RED BLOOD COUNT 3.83 10^6/uL (4.35-5.85); RED CELL DISTRIBUTION WIDTH 12.9 % (10.0-14.5)
[2018-03-20 13:53] LABS: ALANINE AMINOTRANSFERASE 15 U/L (0-55); ALBUMIN 3.6 GM/DL (3.2-4.5); ALKALINE PHOSPHATASE 161 U/L (40-136); BILIRUBIN,TOTAL 0.2 MG/DL (0.1-1.0); BUN/CREATININE RATIO 5; CALCIUM 8.5 MG/DL (8.5-10.1); CARBON DIOXIDE 22 MMOL/L (21-32); CHLORIDE 98 MMOL/L (98-107); CREATININE SERUM 0.86 MG/DL (0.60-1.30); GFR ESTIMATED > 60; GLUCOSE 129 MG/DL (70-105); MAGNESIUM 1.7 MG/DL (1.8-2.4); POTASSIUM 4.4 MMOL/L (3.6-5.0); SODIUM 127 MMOL/L (135-145); TOTAL PROTEIN 6.6 GM/DL (6.4-8.2)
[2018-03-27 10:23] LABS: BASOPHILS % (AUTO) 0 % (0-10); EOSINOPHILS # (AUTO) 0.3 10^3/uL (0.0-0.3); EOSINOPHILS % (AUTO) 3 % (0-10); HEMATOCRIT 34 % (40-54); HEMOGLOBIN 11.7 G/DL (13.3-17.7); LYMPHOCYTES # (AUTO) 1.3 X 10^3 (1.0-4.0); LYMPHOCYTES % (AUTO) 13 % (12-44); MEAN CORPUSCULAR HEMOGLOBIN 31 PG (25-34); MEAN CORPUSCULAR HGB CONC 35 G/DL (32-36); MEAN CORPUSCULAR VOLUME 90 FL (80-99); MEAN PLATELET VOLUME 8.3 FL (7.4-10.4); MONOCYTES % (AUTO) 10 % (0-12); NEUTROPHILS # (AUTO) 7.1 X 10^3 (1.8-7.8); NEUTROPHILS % (AUTO) 74 % (42-75); PLATELET COUNT 380 10^3/uL (130-400); RED BLOOD COUNT 3.73 10^6/uL (4.35-5.85); RED CELL DISTRIBUTION WIDTH 13.3 % (10.0-14.5); WHITE BLOOD COUNT 9.7 10^3/uL (4.3-11.0)
[2018-03-27 10:40] LABS: ALANINE AMINOTRANSFERASE 14 U/L (0-55); ALBUMIN 3.5 GM/DL (3.2-4.5); ALKALINE PHOSPHATASE 164 U/L (40-136); BILIRUBIN,TOTAL 0.2 MG/DL (0.1-1.0); BUN/CREATININE RATIO 4; CALCIUM 8.6 MG/DL (8.5-10.1); CARBON DIOXIDE 24 MMOL/L (21-32); CHLORIDE 102 MMOL/L (98-107); CREATININE SERUM 0.77 MG/DL (0.60-1.30); GFR ESTIMATED > 60; GLUCOSE 98 MG/DL (70-105); POTASSIUM 4.2 MMOL/L (3.6-5.0); SODIUM 133 MMOL/L (135-145); TOTAL PROTEIN 6.3 GM/DL (6.4-8.2)
[~2018-04-23] VITALS: Ht 177.8 cm; Wt 68.9 kg
[~2018-04-23 10:47] MED LIST changes: -GADOBUTROL 7.5 MMOL/7.5 ML (GADAVIST) VIAL IV ONE; +NIVOLUMAB 200 MG, NIVOLUMAB 40 MG in NS (IVPB) CANCER CENTER 50 ML IV SCH; +NIVOLUMAB IV SCH; +NS (IVPB) CANCER CENTER 250 ML IV SCH; +NS IV SCH
[2018-04-23 11:01] LABS: BASOPHILS % (AUTO) 0 % (0-10); EOSINOPHILS # (AUTO) 0.3 10^3/uL (0.0-0.3); EOSINOPHILS % (AUTO) 2 % (0-10); HEMATOCRIT 35 % (40-54); HEMOGLOBIN 12.2 G/DL (13.3-17.7); LYMPHOCYTES # (AUTO) 1.4 X 10^3 (1.0-4.0); LYMPHOCYTES % (AUTO) 12 % (12-44); MEAN CORPUSCULAR HEMOGLOBIN 32 PG (25-34); MEAN CORPUSCULAR HGB CONC 35 G/DL (32-36); MEAN CORPUSCULAR VOLUME 90 FL (80-99); MEAN PLATELET VOLUME 8.2 FL (7.4-10.4); MONOCYTES # (AUTO) 1.2 X 10^3 (0.0-1.0); MONOCYTES % (AUTO) 10 % (0-12); NEUTROPHILS # (AUTO) 8.7 X 10^3 (1.8-7.8); NEUTROPHILS % (AUTO) 75 % (42-75); PLATELET COUNT 378 10^3/uL (130-400); RED BLOOD COUNT 3.87 10^6/uL (4.35-5.85); WHITE BLOOD COUNT 11.6 10^3/uL (4.3-11.0)
[2018-04-23 11:44] LABS: ALANINE AMINOTRANSFERASE 12 U/L (0-55); ALBUMIN 3.6 GM/DL (3.2-4.5); ALKALINE PHOSPHATASE 151 U/L (40-136); BILIRUBIN,TOTAL 0.2 MG/DL (0.1-1.0); BUN/CREATININE RATIO 6; CALCIUM 8.5 MG/DL (8.5-10.1); CARBON DIOXIDE 24 MMOL/L (21-32); CHLORIDE 98 MMOL/L (98-107); CREATININE SERUM 0.78 MG/DL (0.60-1.30); GFR ESTIMATED > 60; GLUCOSE 85 MG/DL (70-105); MAGNESIUM 1.6 MG/DL (1.8-2.4); POTASSIUM 4.4 MMOL/L (3.6-5.0); SODIUM 129 MMOL/L (135-145); TOTAL PROTEIN 6.6 GM/DL (6.4-8.2)
== END 2018-05-21 09:26 | disposition home or self-care (01) ==
LOC: ONC 10:47
PROVIDERS: ATTEND Internal Medicine Hematology & Oncology
DX: Z51.11 Encounter for antineoplastic chemotherapy (principal); C34.11 Malignant neoplasm of upper lobe, right bronchus or lung; C79.31 Secondary malignant neoplasm of brain; C79.71 Secondary malignant neoplasm of right adrenal gland; G40.909 Epilepsy, unspecified, not intractable, without status epilepticus; E83.42 Hypomagnesemia; F17.210 Nicotine dependence, cigarettes, uncomplicated; I25.10 Atherosclerotic heart disease of native coronary artery without angina pectoris; I25.2 Old myocardial infarction; Z79.899 Other long term (current) drug therapy; Z79.82 Long term (current) use of aspirin; Z93.3 Colostomy status
CPT/HCPCS: 36591; 80053; 80185; 83735; 84443; 85025; 96413

== ENCOUNTER 2018-05-21 09:27 | Outpatient (RCR) | payer MEDICAID ==
[~2018-05-21] VITALS: Ht 177.8 cm; Wt 68.0 kg
[2018-05-21] MEDS ORDERED: NS (IVPB) CANCER CENTER 250 ML IV SCH (09:32)
[2018-05-21] MEDS ORDERED: NS IV SCH (09:32)
[2018-05-21] MEDS ORDERED: NIVOLUMAB IV SCH (09:32)
[2018-05-21 09:49] LABS: BASOPHILS # (AUTO) 0.1 10^3/uL (0.0-0.1); BASOPHILS % (AUTO) 1 % (0-10); EOSINOPHILS # (AUTO) 0.3 10^3/uL (0.0-0.3); EOSINOPHILS % (AUTO) 3 % (0-10); HEMATOCRIT 35 % (40-54); HEMOGLOBIN 12.6 G/DL (13.3-17.7); LYMPHOCYTES # (AUTO) 1.6 X 10^3 (1.0-4.0); LYMPHOCYTES % (AUTO) 16 % (12-44); MEAN CORPUSCULAR HEMOGLOBIN 33 PG (25-34); MEAN CORPUSCULAR HGB CONC 36 G/DL (32-36); MEAN CORPUSCULAR VOLUME 89 FL (80-99); MEAN PLATELET VOLUME 8.5 FL (7.4-10.4); MONOCYTES % (AUTO) 9 % (0-12); NEUTROPHILS # (AUTO) 7.5 X 10^3 (1.8-7.8); NEUTROPHILS % (AUTO) 72 % (42-75); PLATELET COUNT 345 10^3/uL (130-400); RED BLOOD COUNT 3.88 10^6/uL (4.35-5.85); RED CELL DISTRIBUTION WIDTH 13.2 % (10.0-14.5); WHITE BLOOD COUNT 10.4 10^3/uL (4.3-11.0)
[2018-05-21 10:12] LABS: ALANINE AMINOTRANSFERASE 16 U/L (0-55); ALBUMIN 3.7 GM/DL (3.2-4.5); ALKALINE PHOSPHATASE 177 U/L (40-136); BILIRUBIN,TOTAL 0.2 MG/DL (0.1-1.0); BUN/CREATININE RATIO 4; CARBON DIOXIDE 22 MMOL/L (21-32); CHLORIDE 102 MMOL/L (98-107); CREATININE SERUM 0.78 MG/DL (0.60-1.30); GFR ESTIMATED > 60; GLUCOSE 91 MG/DL (70-105); MAGNESIUM 1.7 MG/DL (1.8-2.4); POTASSIUM 4.1 MMOL/L (3.6-5.0); SODIUM 136 MMOL/L (135-145); TOTAL PROTEIN 6.7 GM/DL (6.4-8.2)
== END 2018-06-06 10:00 | disposition home or self-care (01) ==
LOC: ONC 09:27
PROVIDERS: ATTEND Internal Medicine Hematology & Oncology
DX: Z51.11 Encounter for antineoplastic chemotherapy (principal); C34.11 Malignant neoplasm of upper lobe, right bronchus or lung; C79.31 Secondary malignant neoplasm of brain; C79.71 Secondary malignant neoplasm of right adrenal gland; G40.909 Epilepsy, unspecified, not intractable, without status epilepticus; E83.42 Hypomagnesemia; F17.210 Nicotine dependence, cigarettes, uncomplicated; I25.10 Atherosclerotic heart disease of native coronary artery without angina pectoris; I25.2 Old myocardial infarction; Z79.899 Other long term (current) drug therapy; Z79.82 Long term (current) use of aspirin; Z93.3 Colostomy status
CPT/HCPCS: 36591; 80053; 83735; 84443; 85025; 96413

== ENCOUNTER → 2018-06-14 | Outpatient (CLI) | payer MEDICAID ==
[~2018-06-14] MED LIST changes: +BARIUM SUSPENSION 2.1% (VANILLA SILQ) 450 ML PO ONE; +CATHETER FLUSH 10 ML SYR IV PRN; +IOHEXOL 350 MG/ML 100 ML (OMNIPAQUE 350) VIAL IV ONE; -NIVOLUMAB 200 MG, NIVOLUMAB 40 MG in NS (IVPB) CANCER CENTER 50 ML IV SCH; -NIVOLUMAB IV SCH; -NS (IVPB) CANCER CENTER 250 ML IV SCH; +NS 250 ML (IVPB) BAG IV ONE; -NS IV SCH; +RECEIVED CONTRAST (Hold Metformin) IV SCH
--- NOTE | 2018-06-14 12:46 | Diagnostic Imaging Report ---
PROCEDURE: CT chest with contrast, CT abdomen and pelvis with and without contrast. TECHNIQUE: Pre and post intravenous contrast axial imaging of the abdomen and pelvis and post contrast axial imaging of the chest were performed. INDICATION: Lung cancer, followup. Comparison is made with prior CT from 07/04/2017. CT chest: FINDINGS: No axillary lymphadenopathy is seen. Left chest wall port is in place. Mediastinum and radha appear stable. There are calcified lymph nodes in the radha bilaterally consistent with granulomatous residua. No pericardial or pleural fluid is identified. Spiculated mass in the right upper lobe measures 2.9 cm AP by 3.1 cm transverse, similar to prior exam when measured by the same technique. There appears to be some paramediastinal fibrosis on the right, similar to prior exam. No new mass is seen. Bony structures are unremarkable. IMPRESSION: Stable CT chest when compared with study one year earlier. Spiculated mass in the right upper lobe remain stable in size. Mildly prominent subcarinal and paratracheal nodes are stable. CT abdomen and pelvis: No discrete liver mass is seen. Gallbladder is unremarkable. The pancreas and spleen are unremarkable apart from multiple calcified granulomas in the spleen. No adrenal mass is identified on today's study. Kidneys contain cortical low densities, suggestive of cysts. Largest is on the right and appear stable. Aorta is non-aneurysmal. There does appear to be aorto bifemoral graft. No central retroperitoneal or mesenteric lymphadenopathy is seen. The small and large bowel loops are normal caliber. Bladder does show some generalized wall thickening. No discrete mass is seen. No definite iliac lymphadenopathy seen. There are mildly prominent lymph nodes in the inguinal regions bilaterally, similar to prior. Bony structures are nonacute. IMPRESSION: Stable CT of the abdomen and pelvis. There is mild bladder wall thickening which may be owing to cystitis or bladder outlet obstruction. No new abnormality is seen. Dictated by: Dictated on workstation # [id number]
--- NOTE | 2018-06-14 14:50 | Diagnostic Imaging Report ---
INDICATION: Lung cancer. TECHNIQUE: Patient was administered 17.3 mCi of technetium 99m MDP intravenously and whole-body imaging was performed after three hour delay. COMPARISON: No prior bone scans are available for comparison. FINDINGS: There is normal uptake of activity by the axial and appendicular skeleton. There is uptake by both kidneys with excretion into the urinary bladder. The right kidney does appear to be small. No abnormal foci are identified to suggest osseous metastatic disease. IMPRESSION: No scintigraphic evidence of osseous metastatic disease. Dictated by: Dictated on workstation # [id number]
== END ==
LOC: CARD 11:03
PROVIDERS: ATTEND Nurse Practitioner Adult Health
DX: C34.11 Malignant neoplasm of upper lobe, right bronchus or lung (principal); C44.702 Unspecified malignant neoplasm of skin of right lower limb, including hip; C79.31 Secondary malignant neoplasm of brain; C79.71 Secondary malignant neoplasm of right adrenal gland
CPT/HCPCS: 71260; 74178; 78306

== ENCOUNTER 2018-09-11 10:45 | Outpatient (RCR) | payer MEDICAID ==
[2018-06-19 10:48] LABS: BASOPHILS % (AUTO) 0 % (0-10); EOSINOPHILS # (AUTO) 0.2 10^3/uL (0.0-0.3); EOSINOPHILS % (AUTO) 2 % (0-10); HEMATOCRIT 35 % (40-54); HEMOGLOBIN 12.1 G/DL (13.3-17.7); LYMPHOCYTES # (AUTO) 1.6 X 10^3 (1.0-4.0); LYMPHOCYTES % (AUTO) 16 % (12-44); MEAN CORPUSCULAR HEMOGLOBIN 31 PG (25-34); MEAN CORPUSCULAR HGB CONC 34 G/DL (32-36); MEAN CORPUSCULAR VOLUME 91 FL (80-99); MEAN PLATELET VOLUME 8.7 FL (7.4-10.4); MONOCYTES % (AUTO) 10 % (0-12); NEUTROPHILS # (AUTO) 7.3 X 10^3 (1.8-7.8); NEUTROPHILS % (AUTO) 72 % (42-75); PLATELET COUNT 361 10^3/uL (130-400); RED CELL DISTRIBUTION WIDTH 13.1 % (10.0-14.5); WHITE BLOOD COUNT 10.2 10^3/uL (4.3-11.0)
[2018-06-19 11:10] LABS: ALANINE AMINOTRANSFERASE 8 U/L (0-55); ALBUMIN 3.5 GM/DL (3.2-4.5); ALKALINE PHOSPHATASE 168 U/L (40-136); BILIRUBIN,TOTAL 0.2 MG/DL (0.1-1.0); BUN/CREATININE RATIO 5; CALCIUM 8.3 MG/DL (8.5-10.1); CARBON DIOXIDE 24 MMOL/L (21-32); CHLORIDE 103 MMOL/L (98-107); CREATININE SERUM 0.81 MG/DL (0.60-1.30); GFR ESTIMATED > 60; GLUCOSE 91 MG/DL (70-105); MAGNESIUM 1.4 MG/DL (1.8-2.4); POTASSIUM 4.2 MMOL/L (3.6-5.0); SODIUM 135 MMOL/L (135-145); TOTAL PROTEIN 6.4 GM/DL (6.4-8.2)
[2018-07-17 10:15] LABS: BASOPHILS # (AUTO) 0.1 10^3/uL (0.0-0.1); BASOPHILS % (AUTO) 1 % (0-10); EOSINOPHILS # (AUTO) 0.2 10^3/uL (0.0-0.3); EOSINOPHILS % (AUTO) 2 % (0-10); HEMATOCRIT 36 % (40-54); HEMOGLOBIN 12.3 G/DL (13.3-17.7); LYMPHOCYTES # (AUTO) 1.4 X 10^3 (1.0-4.0); LYMPHOCYTES % (AUTO) 14 % (12-44); MEAN CORPUSCULAR HEMOGLOBIN 31 PG (25-34); MEAN CORPUSCULAR HGB CONC 35 G/DL (32-36); MEAN CORPUSCULAR VOLUME 90 FL (80-99); MEAN PLATELET VOLUME 8.5 FL (7.4-10.4); MONOCYTES % (AUTO) 10 % (0-12); NEUTROPHILS # (AUTO) 6.9 X 10^3 (1.8-7.8); NEUTROPHILS % (AUTO) 73 % (42-75); PLATELET COUNT 360 10^3/uL (130-400); RED CELL DISTRIBUTION WIDTH 13.1 % (10.0-14.5); WHITE BLOOD COUNT 9.5 10^3/uL (4.3-11.0)
[2018-07-17 10:43] LABS: ALANINE AMINOTRANSFERASE 11 U/L (0-55); ALBUMIN 3.5 GM/DL (3.2-4.5); ALKALINE PHOSPHATASE 172 U/L (40-136); BILIRUBIN,TOTAL 0.2 MG/DL (0.1-1.0); BUN/CREATININE RATIO 6; CALCIUM 8.5 MG/DL (8.5-10.1); CARBON DIOXIDE 23 MMOL/L (21-32); CHLORIDE 102 MMOL/L (98-107); CREATININE SERUM 0.82 MG/DL (0.60-1.30); GFR ESTIMATED > 60; GLUCOSE 90 MG/DL (70-105); MAGNESIUM 1.5 MG/DL (1.8-2.4); POTASSIUM 4.4 MMOL/L (3.6-5.0); SODIUM 133 MMOL/L (135-145); TOTAL PROTEIN 6.4 GM/DL (6.4-8.2)
[2018-08-14 14:31] LABS: BASOPHILS % (AUTO) 0 % (0-10); EOSINOPHILS # (AUTO) 0.3 10^3/uL (0.0-0.3); EOSINOPHILS % (AUTO) 2 % (0-10); HEMATOCRIT 35 % (40-54); HEMOGLOBIN 12.2 G/DL (13.3-17.7); LYMPHOCYTES # (AUTO) 1.5 X 10^3 (1.0-4.0); LYMPHOCYTES % (AUTO) 13 % (12-44); MEAN CORPUSCULAR HEMOGLOBIN 32 PG (25-34); MEAN CORPUSCULAR HGB CONC 35 G/DL (32-36); MEAN CORPUSCULAR VOLUME 90 FL (80-99); MEAN PLATELET VOLUME 8.6 FL (7.4-10.4); MONOCYTES % (AUTO) 9 % (0-12); NEUTROPHILS # (AUTO) 8.4 X 10^3 (1.8-7.8); NEUTROPHILS % (AUTO) 75 % (42-75); PLATELET COUNT 405 10^3/uL (130-400); RED CELL DISTRIBUTION WIDTH 13.3 % (10.0-14.5); WHITE BLOOD COUNT 11.2 10^3/uL (4.3-11.0)
[2018-08-14 14:54] LABS: ALANINE AMINOTRANSFERASE 12 U/L (0-55); ALBUMIN 3.6 GM/DL (3.2-4.5); ALKALINE PHOSPHATASE 173 U/L (40-136); BILIRUBIN,TOTAL 0.3 MG/DL (0.1-1.0); BUN/CREATININE RATIO 4; CALCIUM 8.2 MG/DL (8.5-10.1); CARBON DIOXIDE 23 MMOL/L (21-32); CHLORIDE 101 MMOL/L (98-107); CREATININE SERUM 0.89 MG/DL (0.60-1.30); GFR ESTIMATED > 60; GLUCOSE 97 MG/DL (70-105); MAGNESIUM 1.3 MG/DL (1.8-2.4); SODIUM 134 MMOL/L (135-145); TOTAL PROTEIN 6.6 GM/DL (6.4-8.2)
[~2018-09-11] VITALS: Ht 177.8 cm; Wt 68.5 kg
[~2018-09-11 10:45] MED LIST changes: -BARIUM SUSPENSION 2.1% (VANILLA SILQ) 450 ML PO ONE; -CATHETER FLUSH 10 ML SYR IV PRN; -IOHEXOL 350 MG/ML 100 ML (OMNIPAQUE 350) VIAL IV ONE; +NIVOLUMAB 480 MG in NS (IVPB) CANCER CENTER 100 ML IV SCH; +NIVOLUMAB 480 MG in NS (IVPB) CANCER CENTER 50 ML IV SCH; +NIVOLUMAB IV SCH; +NS (IVPB) CANCER CENTER 250 ML IV SCH; -NS 250 ML (IVPB) BAG IV ONE; +NS IV SCH; -RECEIVED CONTRAST (Hold Metformin) IV SCH
[2018-09-11 11:00] LABS: BASOPHILS % (AUTO) 0 % (0-10); EOSINOPHILS # (AUTO) 0.2 10^3/uL (0.0-0.3); EOSINOPHILS % (AUTO) 2 % (0-10); HEMATOCRIT 34 % (40-54); HEMOGLOBIN 11.8 G/DL (13.3-17.7); LYMPHOCYTES # (AUTO) 1.4 X 10^3 (1.0-4.0); LYMPHOCYTES % (AUTO) 14 % (12-44); MEAN CORPUSCULAR HEMOGLOBIN 31 PG (25-34); MEAN CORPUSCULAR HGB CONC 34 G/DL (32-36); MEAN CORPUSCULAR VOLUME 90 FL (80-99); MEAN PLATELET VOLUME 8.3 FL (7.4-10.4); MONOCYTES % (AUTO) 10 % (0-12); NEUTROPHILS # (AUTO) 7.4 X 10^3 (1.8-7.8); NEUTROPHILS % (AUTO) 74 % (42-75); PLATELET COUNT 345 10^3/uL (130-400); RED CELL DISTRIBUTION WIDTH 13.3 % (10.0-14.5); WHITE BLOOD COUNT 9.9 10^3/uL (4.3-11.0)
[2018-09-11 11:27] LABS: ALANINE AMINOTRANSFERASE 8 U/L (0-55); ALBUMIN 3.5 GM/DL (3.2-4.5); ALKALINE PHOSPHATASE 170 U/L (40-136); BILIRUBIN,TOTAL 0.2 MG/DL (0.1-1.0); BUN/CREATININE RATIO 8; CALCIUM 8.4 MG/DL (8.5-10.1); CARBON DIOXIDE 22 MMOL/L (21-32); CHLORIDE 101 MMOL/L (98-107); CREATININE SERUM 0.76 MG/DL (0.60-1.30); GFR ESTIMATED > 60; GLUCOSE 101 MG/DL (70-105); MAGNESIUM 1.5 MG/DL (1.8-2.4); POTASSIUM 4.2 MMOL/L (3.6-5.0); SODIUM 133 MMOL/L (135-145); TOTAL PROTEIN 6.6 GM/DL (6.4-8.2)
== END 2018-09-17 | disposition home or self-care (01) ==
LOC: ONC 10:45
PROVIDERS: ATTEND Internal Medicine Hematology & Oncology
DX: Z51.11 Encounter for antineoplastic chemotherapy (principal); C34.11 Malignant neoplasm of upper lobe, right bronchus or lung; C79.31 Secondary malignant neoplasm of brain; C79.71 Secondary malignant neoplasm of right adrenal gland; G40.909 Epilepsy, unspecified, not intractable, without status epilepticus; E83.42 Hypomagnesemia; F17.210 Nicotine dependence, cigarettes, uncomplicated; I25.10 Atherosclerotic heart disease of native coronary artery without angina pectoris; I25.2 Old myocardial infarction; Z79.899 Other long term (current) drug therapy; Z79.82 Long term (current) use of aspirin; Z93.3 Colostomy status
CPT/HCPCS: 36591; 80053; 83735; 84443; 85025; 96413

== ENCOUNTER → 2018-11-01 | Outpatient (CLI) | payer MEDICAID ==
[~2018-11-01] MED LIST changes: +BARIUM SUSPENSION 2.1% (VANILLA SILQ) 450 ML PO ONE; +CATHETER FLUSH 10 ML SYR IV PRN; +GADOBUTROL 7.5 MMOL/7.5 ML (GADAVIST) VIAL IV ONE; +HOLD METFORMIN - RECEIVED CONTRAST 20 ML VIAL IV SCH; +IOHEXOL 350 MG/ML 100 ML (OMNIPAQUE 350) VIAL IV ONE; -NIVOLUMAB 480 MG in NS (IVPB) CANCER CENTER 100 ML IV SCH; -NIVOLUMAB 480 MG in NS (IVPB) CANCER CENTER 50 ML IV SCH; -NIVOLUMAB IV SCH; -NS (IVPB) CANCER CENTER 250 ML IV SCH; -NS IV SCH
--- NOTE | 2018-11-01 12:49 | Diagnostic Imaging Report ---
PROCEDURE: CT chest and abdomen with contrast. TECHNIQUE: Multiple contiguous axial images were obtained through the chest and abdomen after the administration of intravenous contrast. Auto Exposure Controls were utilized during the CT exam to meet ALARA standards for radiation dose reduction. INDICATION: Lung cancer with brain metastases. COMPARISON: Correlation is made with prior CT from 06/14/2018. FINDINGS: CT chest: A left chest wall port remains in place. Axillae are unremarkable. Subcarinal soft tissue fullness appears to be stable at 3.3 x 1.2 cm compared with 3.3 x 1.5 cm on prior. Right paratracheal node appears to be stable. Small paraesophageal lymph node is stable. [place] appear to be stable. There is no pericardial or pleural fluid detected. Spiculated mass in the right upper lobe measures 3.1 x 3.2 cm compared with 2.9 x 3.1 cm. There are some interstitial changes in right upper and right lower lobe. Left lung remains clear apart from a calcified granuloma in the left upper lobe. No new mass is seen. IMPRESSION: Stable CT chest when compared with exam from 06/14/2018. CT abdomen: No discrete liver mass is seen. The gallbladder is unremarkable. No biliary ductal dilatation is seen. Pancreas is unremarkable. Spleen contains numerous calcified granulomas. Adrenal glands remain unremarkable. No adrenal mass is seen. Kidneys are unremarkable. Aorta is non-aneurysmal. Aortobiiliac graft is noted. No significant central retroperitoneal or mesenteric lymphadenopathy is seen. There is an ostomy in the left lower quadrant. Small and large bowel loops are normal caliber. There is no ascites. IMPRESSION: Stable CT abdomen when compared with exam from 06/14/2018. Dictated by: Dictated on workstation # [id number]
--- NOTE | 2018-11-01 13:13 | Diagnostic Imaging Report ---
PROCEDURE: MR imaging of the brain with and without contrast. TECHNIQUE: Multiplanar, multisequence MR imaging of the brain was performed with and without contrast. INDICATION: Lung cancer and brain metastases. Study is performed for followup. Correlation is made with prior MRI of the brain from 03/20/2018. The ventricular size and sulcal pattern appear stable. Periventricular white matter changes appear to be similar to prior exam. There is no diffusion restriction. Normal expected flow-voids within the carotid siphons are seen. No midline shift is identified. No acute intra-axial or extra-axial hemorrhage is detected. No abnormal enhancing lesion is identified following contrast administration. No findings to suggest intracranial metastatic disease are seen. Corpus callosum is unremarkable. Sella and parasellar structures are unremarkable. IMPRESSION: Overall stable MRI of the brain with and without contrast when compared with prior MRI from 03/20/2018. There are no findings to suggest intracranial metastatic disease. Periventricular white matter changes appear stable. Dictated by: Dictated on workstation # [id number]
== END ==
LOC: RAD 11:52
PROVIDERS: ATTEND Internal Medicine Hematology & Oncology
DX: C34.11 Malignant neoplasm of upper lobe, right bronchus or lung (principal); C79.31 Secondary malignant neoplasm of brain; Z95.828 Presence of other vascular implants and grafts
CPT/HCPCS: 70553; 71260; 74160

== ENCOUNTER 2019-01-01 09:27 | Outpatient (RCR) | payer MEDICAID ==
[2018-10-09 09:36] LABS: BASOPHILS % (AUTO) 0 % (0-10); EOSINOPHILS # (AUTO) 0.2 10^3/uL (0.0-0.3); EOSINOPHILS % (AUTO) 2 % (0-10); HEMATOCRIT 35 % (40-54); HEMOGLOBIN 12.2 G/DL (13.3-17.7); LYMPHOCYTES # (AUTO) 1.3 X 10^3 (1.0-4.0); LYMPHOCYTES % (AUTO) 11 % (12-44); MEAN CORPUSCULAR HEMOGLOBIN 31 PG (25-34); MEAN CORPUSCULAR HGB CONC 35 G/DL (32-36); MEAN CORPUSCULAR VOLUME 89 FL (80-99); MEAN PLATELET VOLUME 8.5 FL (7.4-10.4); MONOCYTES % (AUTO) 9 % (0-12); NEUTROPHILS # (AUTO) 9.2 X 10^3 (1.8-7.8); NEUTROPHILS % (AUTO) 78 % (42-75); PLATELET COUNT 382 10^3/uL (130-400); RED CELL DISTRIBUTION WIDTH 13.2 % (10.0-14.5); WHITE BLOOD COUNT 11.8 10^3/uL (4.3-11.0)
[2018-10-09 09:57] LABS: ALANINE AMINOTRANSFERASE 10 U/L (0-55); ALBUMIN 3.5 GM/DL (3.2-4.5); ALKALINE PHOSPHATASE 187 U/L (40-136); BILIRUBIN,TOTAL 0.2 MG/DL (0.1-1.0); BUN/CREATININE RATIO 5; CALCIUM 8.4 MG/DL (8.5-10.1); CARBON DIOXIDE 22 MMOL/L (21-32); CHLORIDE 100 MMOL/L (98-107); CREATININE SERUM 0.76 MG/DL (0.60-1.30); GFR ESTIMATED > 60; GLUCOSE 90 MG/DL (70-105); MAGNESIUM 1.9 MG/DL (1.8-2.4); POTASSIUM 4.2 MMOL/L (3.6-5.0); SODIUM 132 MMOL/L (135-145); TOTAL PROTEIN 6.4 GM/DL (6.4-8.2)
[2018-11-06 09:46] LABS: BASOPHILS % (AUTO) 0 % (0-10); EOSINOPHILS # (AUTO) 0.3 10^3/uL (0.0-0.3); EOSINOPHILS % (AUTO) 2 % (0-10); HEMATOCRIT 35 % (40-54); HEMOGLOBIN 11.8 G/DL (13.3-17.7); LYMPHOCYTES # (AUTO) 1.4 X 10^3 (1.0-4.0); LYMPHOCYTES % (AUTO) 11 % (12-44); MEAN CORPUSCULAR HEMOGLOBIN 31 PG (25-34); MEAN CORPUSCULAR HGB CONC 34 G/DL (32-36); MEAN CORPUSCULAR VOLUME 90 FL (80-99); MEAN PLATELET VOLUME 8.4 FL (7.4-10.4); MONOCYTES % (AUTO) 8 % (0-12); NEUTROPHILS # (AUTO) 9.8 X 10^3 (1.8-7.8); NEUTROPHILS % (AUTO) 78 % (42-75); PLATELET COUNT 386 10^3/uL (130-400); RED CELL DISTRIBUTION WIDTH 13.4 % (10.0-14.5); WHITE BLOOD COUNT 12.6 10^3/uL (4.3-11.0)
[2018-11-06 10:06] LABS: ALANINE AMINOTRANSFERASE 14 U/L (0-55); ALBUMIN 3.4 GM/DL (3.2-4.5); ALKALINE PHOSPHATASE 161 U/L (40-136); BILIRUBIN,TOTAL 0.2 MG/DL (0.1-1.0); BUN/CREATININE RATIO 7; CALCIUM 8.4 MG/DL (8.5-10.1); CARBON DIOXIDE 22 MMOL/L (21-32); CHLORIDE 103 MMOL/L (98-107); CREATININE SERUM 0.76 MG/DL (0.60-1.30); GFR ESTIMATED > 60; GLUCOSE 89 MG/DL (70-105); MAGNESIUM 1.8 MG/DL (1.8-2.4); POTASSIUM 4.4 MMOL/L (3.6-5.0); SODIUM 135 MMOL/L (135-145); TOTAL PROTEIN 6.4 GM/DL (6.4-8.2)
[2018-12-04 10:07] LABS: BASOPHILS % (AUTO) 0 % (0-10); EOSINOPHILS # (AUTO) 0.3 10^3/uL (0.0-0.3); EOSINOPHILS % (AUTO) 3 % (0-10); HEMATOCRIT 35 % (40-54); HEMOGLOBIN 11.6 G/DL (13.3-17.7); LYMPHOCYTES # (AUTO) 1.4 X 10^3 (1.0-4.0); LYMPHOCYTES % (AUTO) 13 % (12-44); MEAN CORPUSCULAR HEMOGLOBIN 30 PG (25-34); MEAN CORPUSCULAR HGB CONC 33 G/DL (32-36); MEAN CORPUSCULAR VOLUME 91 FL (80-99); MEAN PLATELET VOLUME 8.8 FL (7.4-10.4); MONOCYTES # (AUTO) 0.9 X 10^3 (0.0-1.0); MONOCYTES % (AUTO) 8 % (0-12); NEUTROPHILS # (AUTO) 8.6 X 10^3 (1.8-7.8); NEUTROPHILS % (AUTO) 76 % (42-75); PLATELET COUNT 422 10^3/uL (130-400); RED CELL DISTRIBUTION WIDTH 13.9 % (10.0-14.5); WHITE BLOOD COUNT 11.3 10^3/uL (4.3-11.0)
[2018-12-04 10:33] LABS: ALANINE AMINOTRANSFERASE 10 U/L (0-55); ALBUMIN 3.4 GM/DL (3.2-4.5); ALKALINE PHOSPHATASE 171 U/L (40-136); BILIRUBIN,TOTAL 0.2 MG/DL (0.1-1.0); BUN/CREATININE RATIO 4; CALCIUM 8.4 MG/DL (8.5-10.1); CARBON DIOXIDE 21 MMOL/L (21-32); CHLORIDE 106 MMOL/L (98-107); GFR ESTIMATED > 60; GLUCOSE 98 MG/DL (70-105); SODIUM 137 MMOL/L (135-145); TOTAL PROTEIN 6.4 GM/DL (6.4-8.2)
[~2019-01-01] VITALS: Ht 177.8 cm; Wt 66.7 kg
[~2019-01-01 09:27] MED LIST changes: -BARIUM SUSPENSION 2.1% (VANILLA SILQ) 450 ML PO ONE; -CATHETER FLUSH 10 ML SYR IV PRN; -GADOBUTROL 7.5 MMOL/7.5 ML (GADAVIST) VIAL IV ONE; -HOLD METFORMIN - RECEIVED CONTRAST 20 ML VIAL IV SCH; -IOHEXOL 350 MG/ML 100 ML (OMNIPAQUE 350) VIAL IV ONE; +NIVOLUMAB 480 MG in NS (IVPB) CANCER CENTER 100 ML IV SCH; +NS (IVPB) CANCER CENTER 250 ML IV SCH
[2019-01-01 09:51] LABS: BASOPHILS % (AUTO) 0 % (0-10); EOSINOPHILS # (AUTO) 0.2 10^3/uL (0.0-0.3); EOSINOPHILS % (AUTO) 2 % (0-10); HEMATOCRIT 34 % (40-54); HEMOGLOBIN 11.6 G/DL (13.3-17.7); LYMPHOCYTES # (AUTO) 1.6 X 10^3 (1.0-4.0); LYMPHOCYTES % (AUTO) 14 % (12-44); MEAN CORPUSCULAR HEMOGLOBIN 30 PG (25-34); MEAN CORPUSCULAR HGB CONC 34 G/DL (32-36); MEAN CORPUSCULAR VOLUME 90 FL (80-99); MEAN PLATELET VOLUME 9.2 FL (7.4-10.4); MONOCYTES % (AUTO) 9 % (0-12); NEUTROPHILS % (AUTO) 74 % (42-75); PLATELET COUNT 368 10^3/uL (130-400); RED CELL DISTRIBUTION WIDTH 13.6 % (10.0-14.5); WHITE BLOOD COUNT 10.8 10^3/uL (4.3-11.0)
[2019-01-01 10:15] LABS: ALANINE AMINOTRANSFERASE 10 U/L (0-55); ALBUMIN 3.3 GM/DL (3.2-4.5); ALKALINE PHOSPHATASE 190 U/L (40-136); BILIRUBIN,TOTAL 0.1 MG/DL (0.1-1.0); BUN/CREATININE RATIO 5; CALCIUM 8.4 MG/DL (8.5-10.1); CARBON DIOXIDE 25 MMOL/L (21-32); CHLORIDE 105 MMOL/L (98-107); CREATININE SERUM 0.82 MG/DL (0.60-1.30); GFR ESTIMATED > 60; GLUCOSE 96 MG/DL (70-105); POTASSIUM 4.3 MMOL/L (3.6-5.0); SODIUM 137 MMOL/L (135-145); TOTAL PROTEIN 6.3 GM/DL (6.4-8.2)
== END 2019-01-07 | disposition home or self-care (01) ==
LOC: ONC 09:27
PROVIDERS: ATTEND Internal Medicine Hematology & Oncology
DX: Z51.11 Encounter for antineoplastic chemotherapy (principal); C34.11 Malignant neoplasm of upper lobe, right bronchus or lung; C79.31 Secondary malignant neoplasm of brain; C79.71 Secondary malignant neoplasm of right adrenal gland; G40.909 Epilepsy, unspecified, not intractable, without status epilepticus; E83.42 Hypomagnesemia; F17.210 Nicotine dependence, cigarettes, uncomplicated; I25.10 Atherosclerotic heart disease of native coronary artery without angina pectoris; Z79.899 Other long term (current) drug therapy; I25.2 Old myocardial infarction; Z79.82 Long term (current) use of aspirin; Z93.3 Colostomy status
CPT/HCPCS: 36591; 80053; 83735; 84443; 85025; 96413

== ENCOUNTER 2019-01-15 16:14 | Emergency (ER) | payer MEDICAID ==
[~2019-01-15] VITALS: Ht 182.9 cm; Wt 66.7 kg
[2019-01-15] MEDS ORDERED: morphine INJ 10 MG/ML 1ML (SYR OR VIAL) IVP STA (16:32)
[2019-01-15 16:44] LABS: BASOPHILS # (AUTO) 0.1 10^3/uL (0.0-0.1); BASOPHILS % (AUTO) 1 % (0-10); EOSINOPHILS % (AUTO) 2 % (0-10); HEMATOCRIT 38 % (40-54); HEMOGLOBIN 12.7 G/DL (13.3-17.7); LYMPHOCYTES # (AUTO) 1.7 X 10^3 (1.0-4.0); LYMPHOCYTES % (AUTO) 17 % (12-44); MEAN CORPUSCULAR HEMOGLOBIN 30 PG (25-34); MEAN CORPUSCULAR HGB CONC 34 G/DL (32-36); MEAN CORPUSCULAR VOLUME 90 FL (80-99); MEAN PLATELET VOLUME 8.8 FL (7.4-10.4); MONOCYTES # (AUTO) 0.9 X 10^3 (0.0-1.0); MONOCYTES % (AUTO) 9 % (0-12); NEUTROPHILS # (AUTO) 7.1 X 10^3 (1.8-7.8); NEUTROPHILS % (AUTO) 71 % (42-75); PLATELET COUNT 445 10^3/uL (130-400); RED CELL DISTRIBUTION WIDTH 13.2 % (10.0-14.5); WHITE BLOOD COUNT 9.9 10^3/uL (4.3-11.0)
[2019-01-15] MEDS ORDERED: ONDANSETRON 4 MG/2 ML (SDV) Z0FRAN IVP ONE (16:45)
[2019-01-15] MEDS ORDERED: FAMOTIDINE 20MG/2ML IV (PEPCID) IVP ONE (16:45)
[2019-01-15] MEDS ORDERED: NS IV 1000 ML 1,000 ML IV SCH (16:45)
[2019-01-15 16:58] LABS: BUN/CREATININE RATIO 6; CALCIUM 8.8 MG/DL (8.5-10.1); CARBON DIOXIDE 25 MMOL/L (21-32); CHLORIDE 96 MMOL/L (98-107); CREATININE SERUM 0.78 MG/DL (0.60-1.30); GFR ESTIMATED > 60; GLUCOSE 101 MG/DL (70-105); POTASSIUM 4.2 MMOL/L (3.6-5.0); SODIUM 135 MMOL/L (135-145)
[2019-01-15 16:59] LABS: ALANINE AMINOTRANSFERASE 7 U/L (0-55); ALBUMIN 3.8 GM/DL (3.2-4.5); ALKALINE PHOSPHATASE 185 U/L (40-136); BILIRUBIN,TOTAL 0.2 MG/DL (0.1-1.0); TOTAL PROTEIN 7.2 GM/DL (6.4-8.2)
--- NOTE | 2019-01-15 17:18 | Diagnostic Imaging Report ---
INDICATION: Blood pressure issues, nausea, chest pain. TECHNIQUE: Single view chest at 4:39 PM. CORRELATION STUDY: 12/22/2016 FINDINGS: A left IJ Awklnc-v-Sqda catheter is present. The tip appears to have been retracted, is now projecting over the SVC. Heart size and mediastinum are stable. Lung nunes have chronic appearing changes, mid lung field along with left hilar granulomas. Ill-defined mass in the right lung apex paramediastinal region persists, may measure slightly smaller, approximately 4 cm, previously 4.9 cm. Apical pleural thickening persists. IMPRESSION: 1. Chronic appearing changes about the chest. 2. Masslike density in the right lung apex persists, stable to perhaps slightly decreased in size at chest radiograph assessment. Dictated by: Dictated on workstation # [id number]
[2019-01-15 17:19] LABS: MAGNESIUM 1.5 MG/DL (1.8-2.4)
[2019-01-15] MEDS ORDERED: IOHEXOL 350 MG/ML 100 ML (OMNIPAQUE 350) VIAL IV ONE (17:30)
[2019-01-15] MEDS ORDERED: HOLD METFORMIN - RECEIVED CONTRAST 20 ML VIAL IV SCH ×2 (17:30→17:45)
[2019-01-15] MEDS ORDERED: NS 100 ML (IVPB) BAG IV ONE (17:30)
--- NOTE | 2019-01-15 17:40 | ED Chest Pain ---
General Chief Complaint: Chest Pain Stated Complaint: BP ISSUES, NAUSEA, CHEST PAIN Nursing Triage Note: patient states he has had nausea since monday and chest pain that started on Monday. Chest pain is described as constant and rated at 9/10. Is made better by laying down and going to sleep but gets worse again when he is upright. Has also been lightheaded, congested and has a cough. Denies sputum production. Has hydro and oxycontin that he takes on a regular basis for pain and has not helped very much with the chest pain. 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 Symptom onset was 3 days ago after running out of nausea medication. Patient's been compliant with his medication and reports good appetite. Epigastric chest pain is not made worse with eating but is worse at times after taking medications. Reports nausea without vomiting. Denies change in colostomy output. Reports fatigue and lightheadedness. Reports persistent cough with occasional shortness of breath. He is a current smoker. No fevers chills or sweats. Patient is currently on immunotherapy which he receives at [facility]. His oncologist is Dr. Barcenas. 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 Associated Symptoms: abdominal pain, nausea/vomiting, shortness of breath (ULISES MONTAÑO DO) Allergies and Home Medications Allergies Coded Allergies: nitroglycerin (Verified Allergy, Unknown, 04/14/16) morphine (Verified Adverse Reaction, Mild, nausea, 01/15/19) Home Medications Oxycodone HCl/Acetaminophen 1 Each Tablet, 1 EACH PO Q6H PRN for PAIN-SEVERE TO BREAKTHROUGH Prescribed by: SERAFIN SINGER on 01/15/191946 Patient Home Medication List Home Medication List Reviewed: Yes (ULISES MONTAÑO DO) Review of Systems Review of Systems Constitutional: see HPI EENTM: See HPI Respiratory: See HPI Cardiovascular: See HPI Gastrointestinal: See HPI Musculoskeletal: see HPI Skin: see HPI Psychiatric/Neurological: See HPI Endocrine: See HPI Hematologic/Lymphatic: See HPI (ULISES MONTAÑO DO) All Other Systems Reviewed Negative Unless Noted: Yes (ULISES MONTAÑO DO) Past Gfypzil-Yzlxqf-Ljpyyo Hx Past Med/Social Hx: Reviewed Nursing Past Med/Soc Hx (ULISES MONTAÑO DO) Patient Social History Alcohol Use: Denies Use Recreational Drug Use: No Smoking Status: Current Everyday Smoker Type Used: Cigarettes 2nd Hand Smoke Exposure: No Recent Foreign Travel: No Contact w/Someone Who Travel: No Recent Infectious Disease Expo: No Recent Hopitalizations: No Physical Abuse: No Sexual Abuse: No Mistreated: No Fear: No (ULISES MONTAÑO DO) Seasonal Allergies Seasonal Allergies: No (ULISES MONTAÑO DO) Past Medical History Surgeries: Yes (colostomy, port (left), toe amputation) Respiratory: No Cardiac: No Neurological: Yes Seizure Disorder Genitourinary: No Gastrointestinal: Yes (colostomy) Endocrine: No HEENT: No Cancer: Yes (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) Lung What Type of Treatment Did You: Chemotherapy, Other immunotherapy Psychosocial: No (ULISES MONTAÑO DO) Physical Exam Vital Signs Vital Signs - First Documented 01/15/19 16:18 Temp 98.3 Pulse 87 Resp 15 B/P (MAP) 108/74 (85) Pulse Ox 98 (SERAFIN SINGER MD) Vital Signs Capillary Refill : Less Than 3 Seconds (ULISES MONTAÑO DO) Height, Weight, BMI Height: 6'0" Weight: 147lbs. oz. 66.837989md; BMI Method:Stated General Appearance: No Apparent Distress, Other (Poor hygeine, unkept) HEENT: PERRL/EOMI, TMs Normal, Pharynx Normal Neck: Supple Respiratory: Decreased Breath Sounds, Rhonci Cardiovascular: Regular Rate, Rhythm, Extra Beats, Other (frequent ectopy) Gastrointestinal: Soft, Other (min epigastric pain/tenderness, Colosotomy with dark stool in bag. ) Extremity: Normal Capillary Refill, Normal Inspection Neurologic/Psychiatric: Alert, Oriented x3, No Motor/Sensory Deficits, senior director insight II- XII Norm as Tested Skin: Normal Color, Warm/Dry (ULISES MONTAÑO DO) Focused Exam Lactate Level 01/15/19 16:48: Lactic Acid Level 0.70 (SERAFIN SINGER MD) Lactic Acid Level Laboratory Tests Test 01/15/19 16:48 Lactic Acid Level 0.70 MMOL/L (0.50-2.00) (SERAFIN SINGER MD) Progress/Results/Core Measures Results/Orders Lab Results Laboratory Tests Test 01/15/19 16:27 01/15/19 16:48 01/15/19 17:11 01/15/19 18:15 Range/Units White Blood Count 9.9 4.3-11.0 10^3/uL Red Blood Count 4.18 L 4.35-5.85 10^6/uL Hemoglobin 12.7 L 13.3-17.7 G/DL Hematocrit 38 L 40-54 % Mean Corpuscular Volume 90 80-99 FL Mean Corpuscular Hemoglobin 30 25-34 PG Mean Corpuscular Hemoglobin Concent 34 32-36 G/DL Red Cell Distribution Width 13.2 10.0-14.5 % Platelet Count 445 H 130-400 10^3/uL Mean Platelet Volume 8.8 7.4-10.4 FL Neutrophils (%) (Auto) 71 42-75 % Lymphocytes (%) (Auto) 17 12-44 % Monocytes (%) (Auto) 9 0-12 % Eosinophils (%) (Auto) 2 0-10 % Basophils (%) (Auto) 1 0-10 % Neutrophils # (Auto) 7.1 1.8-7.8 X 10^3 Lymphocytes # (Auto) 1.7 1.0-4.0 X 10^3 Monocytes # (Auto) 0.9 0.0-1.0 X 10^3 Eosinophils # (Auto) 15.0 H 0.0-0.3 10^3/uL Basophils # (Auto) 0.1 0.0-0.1 10^3/uL Sodium Level 135 135-145 MMOL/L Potassium Level 4.2 3.6-5.0 MMOL/L Chloride Level 96 L 98-107 MMOL/L Carbon Dioxide Level 25 21-32 MMOL/L Anion Gap 14 5-14 MMOL/L Blood Urea Nitrogen 5 L 7-18 MG/DL Creatinine 0.78 0.60-1.30 MG/DL Estimat Glomerular Filtration Rate > 60 BUN/Creatinine Ratio 6 Glucose Level 101 70-105 MG/DL Calcium Level 8.8 8.5-10.1 MG/DL Corrected Calcium 9.0 8.5-10.1 MG/DL Magnesium Level 1.5 L 1.8-2.4 MG/DL Total Bilirubin 0.2 0.1-1.0 MG/DL Aspartate Amino Transf (AST/SGOT) 11 5-34 U/L Alanine Aminotransferase (ALT/SGPT) 7 0-55 U/L Alkaline Phosphatase 185 H 40-136 U/L Troponin T 10 <=15 NG/L Total Protein 7.2 6.4-8.2 GM/DL Albumin 3.8 3.2-4.5 GM/DL Lipase 33 8-78 U/L Lactic Acid Level 0.70 0.50-2.00 MMOL/L Urine Color YELLOW Urine Clarity CLEAR Urine pH 6 5-9 Urine Specific [place] <1.005 1.016-1.022 Urine Protein NEGATIVE NEGATIVE Urine Glucose (UA) NEGATIVE NEGATIVE Urine Ketones NEGATIVE NEGATIVE Urine Nitrite NEGATIVE NEGATIVE Urine Bilirubin NEGATIVE NEGATIVE Urine Urobilinogen NORMAL NORMAL MG/DL Urine Leukocyte Esterase NEGATIVE NEGATIVE Urine RBC (Auto) NEGATIVE NEGATIVE Urine RBC NONE /HPF Urine WBC NONE /HPF Urine Squamous Epithelial Cells 0-2 /HPF Urine Crystals NONE /LPF Urine Bacteria NEGATIVE /HPF Urine Casts NONE /LPF Urine Mucus NEGATIVE /LPF Urine Culture Indicated NO (SERAFIN SINGER MD) My Orders Orders - SERAFIN SINGER MD Rx-Hydrocodone/Apap 5-325 Mg (Rx-Vicodin (01/15/19 20:00) Rx-Hydrocodone/Apap 5-325 Mg (Rx-Vicodin (01/15/19 19:55) (SERAFIN SINGER MD) Medications Given in ED Current Medications Medications Dose Ordered Sig/Cortney Route Start Time Stop Time Status Last Admin Dose Admin Famotidine 20 mg ONCE ONCE IVP 01/15/19 16:45 01/15/19 16:46 DC 01/15/19 16:51 20 MG Iohexol 150 ml ONCE ONCE IV 01/15/19 17:45 01/15/19 17:46 DC 01/15/19 17:50 150 ML Ondansetron HCl 4 mg ONCE ONCE IVP 01/15/19 16:45 01/15/19 16:46 DC 01/15/19 16:51 4 MG Sodium Chloride 100 ml ONCE ONCE IV 01/15/19 17:30 01/15/19 17:31 DC 01/15/19 17:50 80 ML (SERAFIN SINGER MD) Vital Signs/I&O 01/15/19 16:18 Temp 98.3 Pulse 87 Resp 15 B/P (MAP) 108/74 (85) Pulse Ox 98 (SERAFIN SINGRE MD) Blood Pressure Mean: 85 Progress Progress Note #1: Time: 18:00 Progress Note I assumed care of the patient from Dr. Montaño at 1800. Awaiting CTA chest and CT of Abdomen/Pelvis on the patient. His labs, including cardiac enzymes and lactic acid, have not shown any acute significant abnormality to account for his epigastric and lower chest pain. Progress Note #2: Time: 18:39 Progress Note CTA chest results show slight interval worsening of the spiculated masses in his chest since previous imaging. No definite PE but suboptimal contrast to see small peripheral arteries. He has some possible edematous changes noted as well. Progress Note #3: Time: 19:[address] abdomen pelvis without any acute finding to account for his epigastric pain. He does have retained fecal matter for constipation consistent with his narcotic pain meds for his cancer. Progress Note #4: Time: 19:23 Progress Note Reviewed results with the patient and he reports pain was resolved with treatment here in the ED. He would like to go home. I advised him the pain seems to be a combination of constipation and increasing size of his cancer and lymph nodes from the cancer. Encouraged to contact the cancer center tomorrow and check with them about this and see what they would like to do regarding his changes on CT scan and increasing pain. Start taking a laxative to help with constipation. Add on Percocet 10/325 q6h prn breakthrough pain. Check with clinic for continued pain control and further care. Send with Hydrocodone 5/325 1 po q6h prn breakthrough pain #4 take home pack for tonight since the pharmacies will be closed by time his ride gets here and he leaves. (SERAFIN SINGER MD) Initial ECG Impression Date: Jan 15, 2019 Initial ECG Impression Time: 16:22 Initial ECG Rate: 86 (Normal sinus rhythm, rate, 86, no acute ST-T wave changes, QTC 432. Occasional PVC.) (ULISES MONTAÑO DO) Diagnostic Imaging Diagonstic Imaging: CT Plain Films/CT/US/NM/MRI: chest Comments NAME: NATALY RITCHIE [facility] REC#: [id number] PT STATUS: REG ER : 1960 PHYSICIAN: ULISES MONTAÑO DO ADMIT DATE: 01/15/19/ER FS Draft Date of Exam:01/15/19 CT ANGIO CHEST W PROCEDURE: CT angiography of the chest with contrast. TECHNIQUE: Multiple contiguous axial images were obtained through the chest after uneventful bolus administration of intravenous contrast. 2D reconstructed CTA MIP acquisitions were also performed. Auto Exposure Controls were utilized during the CT exam to meet ALARA standards for radiation dose reduction. INDICATION: History of lung and brain cancer. Chest pain. Blood pressure problems. CORRELATION STUDY: CT chest 11/01/2018 FINDINGS: Heart size within normal limits. Scattered coronary artery calcifications. The thoracic aortic contour is relatively unremarkable. Mild wall calcification. No aneurysm or dissection. Moderate calcification at the takeoff of the great vessels off the arch. There is overall generally suboptimal contrast bolus opacification of the pulmonary arteries for assessment of pulmonary embolism. A definitive large central pulmonary embolus does not appear to be suggested. More peripheral emboli could easily go undetected. Enlarged mediastinal lymph nodes are again demonstrated. The dominant subcarinal mass currently measures 3.9 x 1.7 cm, previously 3.3 x 1.2 cm. Does appear to be slightly increased in size. Left-sided Awsxus-j-Pgwt catheter is present, the tip within the SVC. Advanced emphysematous lung disease. Interstitial markings do appear to be overall slightly progressed from prior study, could be reflective of a component of edema. Large spiculated partially cavitary mass in the right upper lobe currently 3.7 x 3.0 cm, previously 3.2 x 3.0 cm measuring slightly larger. Scattered areas of additional subpleural fibrosis and honeycombing noted particularly in the subpleural region of the right upper lobe and right lower lobe. There are a few areas of nodularity about the thyroid gland. The visualized portion of the upper abdomen is unremarkable. Diffuse bony demineralization. No dick bony destructive change. IMPRESSION: 1. Suggestion of perhaps slight interval increase in size of the spiculated mass in the right upper lobe and subcarinal lymphadenopathy. 2. Mildly prominent interstitial markings increased from prior study. Could be reflective of a component of superimposed edema versus infiltrate. No dick lobar consolidation. Dictated on workstation # [id number] Dict: 01/15/19 1752 Trans: 01/15/19 1827 [facility] [id number] Interpreted by: LEANN GONZALEZ DO Electronically signed by: Reviewed: Other (reviewed radiologist report) Diagonstic Imaging: CT Plain Films/CT/US/NM/MRI: abdomen, pelvis Comments NAME: NATALY RITCHIE REC#: [id number] PT STATUS: REG ER : 1960 PHYSICIAN: ULISES MONTAÑO DO ADMIT DATE: 01/15/19/ER FS Draft Date of Exam:01/15/19 CT ABDOMEN/PELVIS W PROCEDURE: CT abdomen and pelvis with contrast. TECHNIQUE: Multiple contiguous axial images were obtained through the abdomen and pelvis after administration of intravenous contrast. Auto Exposure Controls were utilized during the CT exam to meet ALARA standards for radiation dose reduction. INDICATION: 58-year-old male with mid epigastric pain with nausea. COMPARISONS: 11/01/2018 FINDINGS: Cardiac contour is normal. Coronary calcifications are seen. Lung bases show groundglass opacities in both lower lobes, right middle lobe and left lingula. Liver shows uniform attenuation. Gallbladder is nondistended. Spleen shows multiple calcified granuloma. GE junction is normal. Stomach and duodenal sweep are unremarkable. Pancreas shows sharp margins. Adrenals are normal. Kidneys appear normal in size, composition and contour. There is a 2 cm capsular cyst in the right kidney. There is symmetrical perfusion and excretion of contrast. Both ureters are seen through their course and appear normal. Filled bladder is unremarkable. Bilateral ureteral jets are seen. The nonopacified loops of small bowel are unremarkable. Large bowel contains a moderate amount of fecal load up to the mid transverse colon. There is a left lower quadrant ostomy. The Yris's pouch of the distal colon is unremarkable. Visualized vasculature shows an end to side aortobifemoral bypass graft which is widely patent. Minimal soft plaque is seen in the [place] infrarenal [place] aorta. There is normal origin of the visceral arteries. IMPRESSION: 1. Development of diffuse groundglass opacities in the visualized lower lobes, right middle lobe and left lingula. 2. Coronary calcifications. 3. There is no evidence of cholecystectomy, appendicitis or obstructive uropathy. 4. Fecal colon. Additional nonemergent findings, as described above. Dictated on workstation # [id number] Dict: 01/15/19 1838 Trans: 01/15/19 7775 [facility] [id number] Interpreted by: MADELIN NAVA MD Electronically signed by: Reviewed: Other (reviewed radiologist report) (SERAFIN SINGER MD) Departure Communication (Admissions) Work up in progress. CT and lab pending. Case endorsed to oncoming ERP at 18:00. (ULISES MONTAÑO DO) Impression Primary Impression: Metastatic carcinoma to lung Qualified Codes: C78.00 - Secondary malignant neoplasm of unspecified lung Additional Impressions: Mediastinal lymphadenopathy Constipation Qualified Codes: K59.03 - Drug induced constipation Cancer associated pain Disposition: HOME, SELF-CARE Condition: Stable Departure-Patient Inst. Decision time for Depature: 19:34 (SERAFIN SINGER MD) Referrals: RYAN CAPPS MD (PCP/Family) Primary Care Physician Patient Instructions: Cancer Pain Syndromes (DC), Constipation, Adult (DC) Add. Discharge Instructions: Call the cancer center tomorrow and let them know that you were seen in the Emergency department and had CT scans done that show you have increased size of lymph nodes and lung masses since your scan at the end of October. This in combination with your constipation seems to be causing you to have pain in your chest and upper abdomen. See if they want to see you any sooner than at the end of January or if there any changes they want to make. Try taking additional pain medicine for breakthrough pain. See your primary provider for more pain medicine as the ER can only provide a limited amount and your primary provider or cancer doctor would have to prescribe the majority of this. Use Miralax as a laxative in addition to your stool softener you are taking to help with the constipation. Take 1 capful of the powder mixed in 8 ounces of juice or water once a day. You could decrease this to every other day or just 3 times a week if it is making your stools too loose. All discharge instructions reviewed with patient and/or family. Voiced understanding. Scripts Oxycodone HCl/Acetaminophen (Oxycodone-Acetaminophen 10-325) 1 Each Tablet 1 EACH PO Q6H PRN for PAIN-SEVERE TO BREAKTHROUGH MDD 3 for 5 Days, #20 TAB 0 Refills Prov: SERAFIN SINGER MD 01/15/19 ULISES MONTAÑO DO Jan 15, 2019 17:40 SERAFIN SINGER MD Jan 15, 2019 18:43
[2019-01-15] MEDS ORDERED: IOHEXOL 350 MG/ML 150 ML (OMNIPAQUE 350) VIAL IV ONE (17:45)
--- NOTE | 2019-01-15 18:27 | Diagnostic Imaging Report ---
PROCEDURE: CT angiography of the chest with contrast. TECHNIQUE: Multiple contiguous axial images were obtained through the chest after uneventful bolus administration of intravenous contrast. 2D reconstructed CTA MIP acquisitions were also performed. Auto Exposure Controls were utilized during the CT exam to meet ALARA standards for radiation dose reduction. INDICATION: History of lung and brain cancer. Chest pain. Blood pressure problems. CORRELATION STUDY: CT chest 11/01/2018 FINDINGS: Heart size within normal limits. Scattered coronary artery calcifications. The thoracic aortic contour is relatively unremarkable. Mild wall calcification. No aneurysm or dissection. Moderate calcification at the takeoff of the great vessels off the arch. There is overall generally suboptimal contrast bolus opacification of the pulmonary arteries for assessment of pulmonary embolism. A definitive large central pulmonary embolus does not appear to be suggested. More peripheral emboli could easily go undetected. Enlarged mediastinal lymph nodes are again demonstrated. The dominant subcarinal mass currently measures 3.9 x 1.7 cm, previously 3.3 x 1.2 cm. Does appear to be slightly increased in size. Left-sided Tisyck-v-Qmni catheter is present, the tip within the SVC. Advanced emphysematous lung disease. Interstitial markings do appear to be overall slightly progressed from prior study, could be reflective of a component of edema. Large spiculated partially cavitary mass in the right upper lobe currently 3.7 x 3.0 cm, previously 3.2 x 3.0 cm measuring slightly larger. Scattered areas of additional subpleural fibrosis and honeycombing noted particularly in the subpleural region of the right upper lobe and right lower lobe. There are a few areas of nodularity about the thyroid gland. The visualized portion of the upper abdomen is unremarkable. Diffuse bony demineralization. No dick bony destructive change. IMPRESSION: 1. Suggestion of perhaps slight interval increase in size of the spiculated mass in the right upper lobe and subcarinal lymphadenopathy. 2. Mildly prominent interstitial markings increased from prior study. Could be reflective of a component of superimposed edema versus infiltrate. No dick lobar consolidation. Dictated by: Dictated on workstation # [id number]
[2019-01-15 18:54] LABS: BILIRUBIN,URINE NEGATIVE (NEGATIVE); CLARITY,URINE CLEAR; COLOR,URINE YELLOW; GLUCOSE, URINE (UA) NEGATIVE (NEGATIVE); KETONES,URINE NEGATIVE (NEGATIVE); LEUKOCYTE ESTERASE ,URINE NEGATIVE (NEGATIVE); NITRITE,URINE NEGATIVE (NEGATIVE); PH,URINE 6 (5-9); PROTEIN,URINE NEGATIVE (NEGATIVE); UROBILINOGEN,URINE NORMAL (NORMAL)
--- NOTE | 2019-01-15 18:54 | Diagnostic Imaging Report ---
PROCEDURE: CT abdomen and pelvis with contrast. TECHNIQUE: Multiple contiguous axial images were obtained through the abdomen and pelvis after administration of intravenous contrast. Auto Exposure Controls were utilized during the CT exam to meet ALARA standards for radiation dose reduction. INDICATION: 58-year-old male with mid epigastric pain with nausea. COMPARISONS: 11/01/2018 FINDINGS: Cardiac contour is normal. Coronary calcifications are seen. Lung bases show groundglass opacities in both lower lobes, right middle lobe and left lingula. Liver shows uniform attenuation. Gallbladder is nondistended. Spleen shows multiple calcified granuloma. GE junction is normal. Stomach and duodenal sweep are unremarkable. Pancreas shows sharp margins. Adrenals are normal. Kidneys appear normal in size, composition and contour. There is a 2 cm capsular cyst in the right kidney. There is symmetrical perfusion and excretion of contrast. Both ureters are seen through their course and appear normal. Filled bladder is unremarkable. Bilateral ureteral jets are seen. The nonopacified loops of small bowel are unremarkable. Large bowel contains a moderate amount of fecal load up to the mid transverse colon. There is a left lower quadrant ostomy. The Yris's pouch of the distal colon is unremarkable. Visualized vasculature shows an end to side aortobifemoral bypass graft which is widely patent. Minimal soft plaque is seen in the [place] infrarenal [place] aorta. There is normal origin of the visceral arteries. IMPRESSION: 1. Development of diffuse groundglass opacities in the visualized lower lobes, right middle lobe and left lingula. 2. Coronary calcifications. 3. There is no evidence of cholecystectomy, appendicitis or obstructive uropathy. 4. Fecal colon. Additional nonemergent findings, as described above. Dictated by: Dictated on workstation # [id number]
[2019-01-15 18:55] LABS: BACTERIA,URINE NEGATIVE /HPF; SQUAMOUS EPITHELIAL CELL,UR 0-2 /HPF
--- NOTE | 2019-01-15 19:00 | NUR ---
assumed care of this patient at this time. introduced self, vitals stable, alert and oriented x4
--- NOTE | 2019-01-15 19:30 | NUR ---
PATIENT AMBULATED INDEPENDENTLY TO THE RESTROOM. STEADY ON FEET, DENIES NEED FOR ASSISTANCE.
[2019-01-15] MEDS ORDERED: OXYC-465 PO (19:47)
[2019-01-15 19:55] VITALS: BP 118/75
[2019-01-15] MEDS ORDERED: RX-HYDROCODONE/APAP 5/325 MG #4 TAB PK PO ONE (19:55)
--- NOTE | 2019-01-15 19:55 | NUR ---
DR SINGER GIVES VERBAL ORDER FOR HYDROCODONE TAKE HOME PACK PATIENT IS WALKING OUT. MEDICATION IS PULLED AND GIVEN TO DOCTOR FOR INSTRUCTIONS THEN TO PATIENT.
[2019-01-15] MEDS ORDERED: RX-HYDROCODONE/APAP 5/325 MG #4 TAB PK PO PRN (20:00)
== END 2019-01-15 19:55 | disposition home or self-care (01) ==
LOC: EDUNIT# 16:14 → ER FS 16:16
DX: C78.00 Secondary malignant neoplasm of unspecified lung (principal); C15.9 Malignant neoplasm of esophagus, unspecified; K59.00 Constipation, unspecified; G89.3 Neoplasm related pain (acute) (chronic); R59.0 Localized enlarged lymph nodes; G40.909 Epilepsy, unspecified, not intractable, without status epilepticus; C71.9 Malignant neoplasm of brain, unspecified; F17.210 Nicotine dependence, cigarettes, uncomplicated; Z92.21 Personal history of antineoplastic chemotherapy; Z93.3 Colostomy status; Z88.5 Allergy status to narcotic agent; Z88.8 Allergy status to other drugs, medicaments and biological substances
CPT/HCPCS: 36415; 71045; 71275; 74177; 80053; 80185; 81000; 83605; 83690; 83735; 84484; 85025; 87040; 93005; 96361; 96374; 96375

== ENCOUNTER → 2019-04-22 | Outpatient (CLI) | payer MEDICAID ==
[~2019-04-22] MED LIST changes: -NIVOLUMAB 480 MG in NS (IVPB) CANCER CENTER 100 ML IV SCH; -NS (IVPB) CANCER CENTER 250 ML IV SCH; +OXYC-465 PO
--- NOTE | 2019-04-22 15:56 | Diagnostic Imaging Report ---
INDICATION: Low back pain. TIME OF EXAMINATION: 2:37 PM. TECHNIQUE: Three views of the lumbar spine were obtained. FINDINGS: The curvature and alignment of the lumbar spine are normal. There is diffuse demineralization. There is a central and anterior compression fracture deformity involving the L2 vertebral body. This is similar to the prior CT from October 2018. No retropulsion is seen. The remaining lumbar vertebrae show normal stature. There is generalized degenerative disc disease noted. Extensive stents throughout the right iliac system as well as the left common iliac are noted. IMPRESSION: Chronic changes. No acute abnormality is detected. Dictated by: Dictated on workstation # [id number]
--- NOTE | 2019-04-22 15:57 | Diagnostic Imaging Report ---
INDICATION: Right leg pain. TIME OF EXAMINATION: 2:39 PM. COMPARISON: No prior studies are available for comparison. FINDINGS: An intramedullary vanessa and compression screw transfix a right femoral neck fracture. Acute fracture lines remain visible in the basicervical location. The overall alignment is anatomic. There is no dislocation. The distal femur is intact. IMPRESSION: ORIF of the right hip fracture. The fracture line does remain clearly visible. The alignment is anatomic. Dictated by: Dictated on workstation # [id number]
== END ==
LOC: RAD FS 14:23
PROVIDERS: ATTEND Nurse Practitioner
DX: M53.86 Other specified dorsopathies, lumbar region (principal); M54.5 Low back pain; M79.604 Pain in right leg; Z98.890 Other specified postprocedural states
CPT/HCPCS: 72100; 73552

== ENCOUNTER 2019-04-30 13:37 | Outpatient (RCR) | payer MEDICAID | END 2019-07-29 | disposition home or self-care (01) | LOC: ONC 13:37 | PROVIDERS: ATTEND Internal Medicine Hematology & Oncology | DX: C34.11 Malignant neoplasm of upper lobe, right bronchus or lung (principal); C79.31 Secondary malignant neoplasm of brain; C79.71 Secondary malignant neoplasm of right adrenal gland; G40.909 Epilepsy, unspecified, not intractable, without status epilepticus; E83.42 Hypomagnesemia; F17.210 Nicotine dependence, cigarettes, uncomplicated; I25.10 Atherosclerotic heart disease of native coronary artery without angina pectoris; I25.2 Old myocardial infarction; Z79.899 Other long term (current) drug therapy; Z79.82 Long term (current) use of aspirin; Z93.3 Colostomy status | CPT/HCPCS: 99213 ==

== ENCOUNTER → 2019-05-06 | Outpatient (CLI) | payer MEDICAID ==
--- NOTE | 2019-05-06 13:31 | Diagnostic Imaging Report ---
Right hip at 12:49. Indication: Hip fracture. AP and lateral views were obtained. As noted on the prior exam of 04/22/2019, there is an intramedullary vanessa and 2 or 3 fixation screws securing an intertrochanteric fracture of the right hip. Orthopedic hardware appears to be in good position. The main fracture fragments are near anatomic in alignment and there is a small amount of healing callus formation present. The fracture line however is still clearly visible. No other fracture or acute bony abnormalities appreciated. The soft tissues are unremarkable. Surgical clips are again seen overlying the right pelvis. There is also a wire mesh vascular graft in place on the right. Impression: 1. The postsurgical and posttraumatic changes involving the right femur seen previously appear stable. There is no acute abnormality noted. 2. There is healing callus formation evident but the fracture line is still clearly visible. Dictated by: Dictated on workstation # [id number]
== END ==
LOC: RAD FS 12:36
PROVIDERS: ATTEND Nurse Practitioner
DX: S72.041D Displaced fracture of base of neck of right femur, subsequent encounter for closed fracture with routine healing (principal); Z98.890 Other specified postprocedural states
CPT/HCPCS: 73502

== ENCOUNTER → 2019-06-04 | Outpatient (CLI) | payer MEDICAID ==
--- NOTE | 2019-06-04 14:13 | Diagnostic Imaging Report ---
EXAMINATION: Right hip unilateral 2 or 3 views (w/pelvis when done) HISTORY: Fracture. FINDINGS: Comparison is 05/06/2019. There is a healing reduced and internally fixated right intertrochanteric femoral fracture. Alignment is unchanged. There is increased new bone formation about the fracture lines. Right hip joint space is normal. Vascular stent is seen in the right groin. Multiple surgical clips are seen in the right groin. IMPRESSION: 1. Unchanged alignment with healing reduced and internally fixated right intertrochanteric femur fracture. Dictated by: Dictated on workstation # [id number]
== END ==
LOC: RAD FS 12:55
PROVIDERS: ATTEND Nurse Practitioner
DX: S72.009D Fracture of unspecified part of neck of unspecified femur, subsequent encounter for closed fracture with routine healing (principal); X58.XXXD Exposure to other specified factors, subsequent encounter
CPT/HCPCS: 73502

== ENCOUNTER 2019-08-27 13:07 | Outpatient (RCR) | payer MEDICAID ==
[2019-08-27 13:28] LABS: BASOPHILS % (AUTO) 0 % (0-10); EOSINOPHILS # (AUTO) 0.1 10^3/uL (0.0-0.3); EOSINOPHILS % (AUTO) 1 % (0-10); HEMATOCRIT 34 % (40-54); HEMOGLOBIN 11.5 G/DL (13.3-17.7); LYMPHOCYTES # (AUTO) 1.4 X 10^3 (1.0-4.0); LYMPHOCYTES % (AUTO) 15 % (12-44); MEAN CORPUSCULAR HEMOGLOBIN 29 PG (25-34); MEAN CORPUSCULAR HGB CONC 34 G/DL (32-36); MEAN CORPUSCULAR VOLUME 86 FL (80-99); MEAN PLATELET VOLUME 8.5 FL (7.4-10.4); MONOCYTES % (AUTO) 10 % (0-12); NEUTROPHILS # (AUTO) 6.8 X 10^3 (1.8-7.8); NEUTROPHILS % (AUTO) 73 % (42-75); PLATELET COUNT 290 10^3/uL (130-400); RED CELL DISTRIBUTION WIDTH 14.2 % (10.0-14.5); WHITE BLOOD COUNT 9.2 10^3/uL (4.3-11.0)
[2019-08-27 13:48] LABS: ALANINE AMINOTRANSFERASE 7 U/L (0-55); ALBUMIN 3.8 GM/DL (3.2-4.5); ALKALINE PHOSPHATASE 190 U/L (40-136); BILIRUBIN,TOTAL 0.2 MG/DL (0.1-1.0); BUN/CREATININE RATIO 7; CALCIUM 8.3 MG/DL (8.5-10.1); CARBON DIOXIDE 22 MMOL/L (21-32); CHLORIDE 97 MMOL/L (98-107); CREATININE SERUM 0.83 MG/DL (0.60-1.30); GFR ESTIMATED > 60; GLUCOSE 98 MG/DL (70-105); POTASSIUM 4.4 MMOL/L (3.6-5.0); SODIUM 129 MMOL/L (135-145); TOTAL PROTEIN 6.6 GM/DL (6.4-8.2)
[2019-09-01] MEDS ORDERED: GABA-488 PO (11:07)
[2019-09-01] MEDS ORDERED: PANT40TA3 PO (11:07)
[2019-09-01] MEDS ORDERED: ALPR0.5T7 PO (11:07)
[2019-09-01] MEDS ORDERED: OLAN10TA19 PO (11:07)
[2019-09-01] MEDS ORDERED: MIRT30TA6 PO (11:07)
[2019-09-01] MEDS ORDERED: PHEN100C4 PO (11:07)
[2019-09-01] MEDS ORDERED: METO-333 PO (11:07)
[2019-09-04] MEDS ORDERED: ASPI81TA55 PO (10:08)
[2019-09-04] MEDS ORDERED: ATOR10TA66 PO (10:08)
[2019-09-04] MEDS ORDERED: CEFD300C3 PO (10:08)
[2019-09-04] MEDS ORDERED: PRED10TA22 PO (10:08)
[2019-09-04] MEDS ORDERED: AZIT250T12 PO (10:08)
[2019-09-04] MEDS ORDERED: FLUT12AE4 IH (10:08)
[2019-09-04] MEDS ORDERED: SUCR1TAB PO (10:08)
== END 2019-11-25 | disposition home or self-care (01) ==
LOC: ONC 13:07
PROVIDERS: ATTEND Internal Medicine Hematology & Oncology
DX: C34.11 Malignant neoplasm of upper lobe, right bronchus or lung (principal); C79.31 Secondary malignant neoplasm of brain; C79.71 Secondary malignant neoplasm of right adrenal gland; G40.909 Epilepsy, unspecified, not intractable, without status epilepticus; E83.42 Hypomagnesemia; F17.210 Nicotine dependence, cigarettes, uncomplicated; I25.10 Atherosclerotic heart disease of native coronary artery without angina pectoris; I25.2 Old myocardial infarction; Z79.899 Other long term (current) drug therapy; Z79.82 Long term (current) use of aspirin; Z93.3 Colostomy status
CPT/HCPCS: 36591; 80053; 85025

== ENCOUNTER 2019-09-01 05:56 | Inpatient (IN) | payer MEDICAID ==
[2019-09-01] VITALS (13 sets, daily range): BP systolic 107–142; BP diastolic 58–109
[~2019-09-01] VITALS: Ht 188 cm; Wt 71.0 kg
[2019-09-01] MEDS ORDERED: NS IV 1000 ML 1,000 ML IV STA ×2 (06:14→07:26)
[2019-09-01] MEDS ORDERED: ONDANSETRON 4 MG/2 ML (SDV) Z0FRAN IVP ONE ×2 (06:15→08:15)
--- NOTE | 2019-09-01 06:24 | ED Abdominal Pain ---
General Chief Complaint: Abdominal/GI Problems Stated Complaint: NAUSEA/VOMITTING Nursing Triage Note: pt states 2 days of n/v, this am noticed small amount of blood in emesis. Sepsis Screen: No Definite Risk History of Present Illness Date Seen by Provider: Sep 01, 2019 Time Seen by Provider: 06:04 Initial Comments Emergency room physician documentation. Second documentation [employer] deleted previous note 58-year-old male brought in by EMS for worsening vomiting and nausea. Patient states he's been feeling nauseated for the past 3 days but started vomiting last night. Patient had a large serving of spaghetti with tomato sauce. He states that after he ate he started to experience severe nausea and vomiting and threw up he saw small pieces of blood in the emesis and stated that he could taste of blood in comparison to the spaghetti sauce. The patient does admit that he has recurrent nausea and vomiting. He has a colostomy which still is on the lower left abdomen secondary to a severe bowel obstruction with peritonitis secondary to overuse of opioids when he had gangrene of the foot. Patient has an operating colostomy at this time. It is partially filled with digested material. Patient also has a history of lung cancer stage IV and receives oncology services at [facility]. Patient states that he continues to smoke at least one pack per day despite diagnosis. Attending physician is Dr. Mullen. Patient denies any recent trauma. He is oriented to time place person and purpose but he seems confused at times sweaters on backwards he has poor hygiene and his presentation rambles on 2 inconsequential issues such as arthritis in his hands and shoulders. Patient has given informed consent for diagnostic and therapeutic services. Patient also acknowledges he has had a myocardial infarction in the past although he has no pain in the chest anterior chest left shoulder and left neck or medial aspect of the left arm. Please note that this dictation utilizes [employer] software. Efforts have been made to correct any errors. Some errors R able to penetrate the review process. This is not an intentional event. If there are any questions regarding this dictation please contact Rayray Monte DO. Timing/Duration: 12-24 Hours (nausea for the past 3 days nausea and vomiting since last night) Severity/Quality: Moderate Location: Epigastric (patient also has a colostomy on the left lower quadrant) Radiation: Back Activities at Onset: Other (eating spaghetti and spaghetti sauce) Modifying Factors: Improves With Lying down, Improves With Movement Associated Symptoms: Back Pain, Fatigue, Nausea/Vomiting, Weakness Allergies and Home Medications Allergies Coded Allergies: nitroglycerin (Verified Allergy, Unknown, 04/14/16) morphine (Verified Adverse Reaction, Mild, nausea, 01/15/19) Home Medications Oxycodone HCl/Acetaminophen 1 Each Tablet, 1 EACH PO Q6H PRN for PAIN-SEVERE TO BREAKTHROUGH Prescribed by: SERAFIN SINGER on 01/15/191946 Patient Home Medication List Home Medication List Reviewed: Yes Review of Systems Review of Systems Constitutional: malaise, weakness EENTM: Blurred Vision, Other (poor oral hygiene) Respiratory: Cough (secondary to chronic smoking and lung cancer stage IV oxygen saturation 97% on room air) Cardiovascular: Other (patient has a history of myocardial infarction per patient history) Gastrointestinal: Abdominal Pain, Nausea, Vomiting, Other (patient has a colostomy secondary to bowel obstruction secondary to opioid overuse syndrome with colonic obstruction and perforation) Genitourinary: No Symptoms Reported Musculoskeletal: back pain, muscle weakness (from nausea and vomiting and general deconditioning) Skin: change in color (Dickstein coloration of both hands poor hygiene and untrimmed nails) Psychiatric/Neurological: Anxiety, Seizure (patient reports she has a seizure history but he does not know if he had taken his medication and kept it down because he's been having nausea and vomiting.) Endocrine: No Symptoms Reported Hematologic/Lymphatic: No Symptoms Reported Past Puwmwgf-Bdnffd-Whzfjt Hx Patient Social History Alcohol Use: Denies Use Recreational Drug Use: No Smoking Status: Heavy Tobacco Smoker Type Used: Cigarettes 2nd Hand Smoke Exposure: No Recent Foreign Travel: No Contact w/Someone Who Travel: No Recent Infectious Disease Expo: No Recent Hopitalizations: No Physical Abuse: No Sexual Abuse: No Mistreated: No Fear: No Immunizations Up To Date Date of Pneumonia Vaccine: May 11, 2016 Seasonal Allergies Seasonal Allergies: No Past Medical History Surgeries: Yes (colostomy, port (left), toe amputation) Bowel Surgery (colostomy left lower quadrant), Cardiac (patient reports a history of myocardial infarction but no coronary artery bypass graft poor historian) Respiratory: No Cardiac: No Heart Attack (per patient history minimal details) Neurological: Yes Seizure Disorder Genitourinary: No Gastrointestinal: Yes (colostomy) Gastroesophageal Reflux, Gastrointestinal Bleed, Chronic Constipation (assaulting and colostomy after opioid overuse disorder) Arthritis (with gangrene of 1 foot resulting in chronic antibiotic therapy years ago) Endocrine: No HEENT: No Cancer: Yes (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) Lung (stage IV ecology treatment at the [facility] [place]) What Type of Treatment Did You: Chemotherapy, Other Ongoing oncology care and evaluation at the [facility] Psychosocial: No Anxiety Integumentary: Yes (nicotine discoloration of the hands) Family Medical History Reviewed Nursing Family Hx Physical Exam Vital Signs Vital Signs - First Documented 09/01/19 06:10 Temp 37.2 Pulse 102 Resp 18 B/P (MAP) 130/75 (93) Pulse Ox 98 O2 Delivery Room Air Capillary Refill : Less Than 3 Seconds Height/Weight/BMI Height: 6'0" Weight: 147lbs. oz. 66.251298my; 20.00 BMI Method:Stated General Appearance: moderate distress (. Nausea and vomiting and reported hematoemesis strands of blood after a spaghetti sauce meal) HEENT: PERRL/EOMI, normal ENT inspection (poor hygiene), pharynx normal (poor oral hygiene) Neck: non-tender, full range of motion, supple, normal inspection Respiratory: chest non-tender, crackles, rales (patient reports history of stage IV lung cancer in oncology care), rhonchi (anterior and posterior large airway sounds), other (Port present in upper chest) Cardiovascular: regular rate, rhythm, no edema, no gallop, no JVD, no murmur, tachycardia (100), other (EKG shows a sinus tachycardia of [address] elevation in the anterior leads less than 1 mm) Peripheral Pulses: 2+ Carotid (R), 2+ Carotid (L); 1+ Radial Pulses (R), 1+ Radial Pulses (L) Gastrointestinal: normal bowel sounds, soft, no pulsatile mass, tenderness (epigastric area), other (colostomy appears to be functioning left lower quadrant) Extremities: normal inspection (early DJD observed in the hands patient also has some discomfort in the shoulder), no pedal edema, no calf tenderness, normal capillary refill (with having nicotine staining of the nails) Back: normal inspection, CVA tenderness (L) Neurologic/Psychiatric: lmsw II-XII nml as tested, oriented x 3, sensory defici t, other (slow psychomotor speed and patient is verbose) Skin: warm/dry (poor turgor), other (nicotine staining of both hands and skin and nails) Lymphatic: no adenopathy Focused Exam Lactate Level 09/01/19 06:20: Lactic Acid Level 2.91*H Lactic Acid Level Laboratory Tests Test 09/01/19 06:20 Lactic Acid Level 2.91 MMOL/L (0.50-2.00) *H Progress/Results/Core Measures Results/Orders Lab Results Laboratory Tests Test 09/01/19 06:20 Range/Units White Blood Count 20.0 H 4.3-11.0 10^3/uL Red Blood Count 4.33 L 4.35-5.85 10^6/uL Hemoglobin 12.9 L 13.3-17.7 G/DL Hematocrit 37 L 40-54 % Mean Corpuscular Volume 86 80-99 FL Mean Corpuscular Hemoglobin 30 25-34 PG Mean Corpuscular Hemoglobin Concent 35 32-36 G/DL Red Cell Distribution Width 13.7 10.0-14.5 % Platelet Count 315 130-400 10^3/uL Mean Platelet Volume 8.4 7.4-10.4 FL Neutrophils (%) (Auto) 87 H 42-75 % Lymphocytes (%) (Auto) 5 L 12-44 % Monocytes (%) (Auto) 7 0-12 % Eosinophils (%) (Auto) 0 0-10 % Basophils (%) (Auto) 0 0-10 % Neutrophils # (Auto) 17.4 H 1.8-7.8 X 10^3 Lymphocytes # (Auto) 1.0 1.0-4.0 X 10^3 Monocytes # (Auto) 1.4 H 0.0-1.0 X 10^3 Eosinophils # (Auto) 0.0 0.0-0.3 10^3/uL Basophils # (Auto) 0.1 0.0-0.1 10^3/uL Neutrophils % (Manual) 89 % Lymphocytes % (Manual) 3 % Monocytes % (Manual) 7 % Reactive Lymphocytes 1 % Microcytosis SLIGHT Sodium Level 131 L 135-145 MMOL/L Potassium Level 3.9 3.6-5.0 MMOL/L Chloride Level 90 L 98-107 MMOL/L Carbon Dioxide Level 24 21-32 MMOL/L Anion Gap 17 H 5-14 MMOL/L Blood Urea Nitrogen 7 7-18 MG/DL Creatinine 0.85 0.60-1.30 MG/DL Estimat Glomerular Filtration Rate > 60 BUN/Creatinine Ratio 8 Glucose Level 129 H 70-105 MG/DL Lactic Acid Level 2.91 *H 0.50-2.00 MMOL/L Calcium Level 9.5 8.5-10.1 MG/DL Corrected Calcium 9.4 8.5-10.1 MG/DL Magnesium Level 1.7 1.6-2.4 MG/DL Total Bilirubin 0.2 0.1-1.0 MG/DL Aspartate Amino Transf (AST/SGOT) 15 5-34 U/L Alanine Aminotransferase (ALT/SGPT) 8 0-55 U/L Alkaline Phosphatase 225 H 40-136 U/L Troponin I < 0.30 <0.30 NG/ML Total Protein 7.4 6.4-8.2 GM/DL Albumin 4.1 3.2-4.5 GM/DL Lipase 17 8-78 U/L My Orders Orders - RAYRAY MONTE DO Cbc And Manual Diff (09/01/19 06:14) Comprehensive Metabolic Panel (09/01/19 06:14) Lipase (09/01/19 06:14) Lactic Acid Analyzer (09/01/19 06:14) Magnesium (09/01/19 06:14) Troponin I Fs (09/01/19 06:14) Ekg Tracing (09/01/19 06:14) Acute Abd Series (09/01/19 06:14) Ns Iv 1000 Ml (Sodium Chloride 0.9%) (09/01/19 06:14) Ondansetron Injection (Zofran Injectio (09/01/19 06:15) Urinalysis (09/01/19 06:17) Drug Screen Stat (Urine) (09/01/19 06:17) Blood Culture (09/01/19 07:15) Azithromycin Injection (Zithromax Inject (09/01/19 07:30) Ceftriaxone For Iv Use (Rocephin For I (09/01/19 07:30) Ns Iv 1000 Ml (Sodium Chloride 0.9%) (09/01/19 07:26) Ondansetron Injection (Zofran Injectio (09/01/19 08:15) Lidocaine 2% Viscous 15 Ml (Xylocaine Vi (09/01/19 08:15) Antacid Suspension (Mylanta Suspension (09/01/19 08:15) Pantoprazole Injection (Protonix Injecti (09/01/19 08:15) Ct Chest/Abdomen/Pelvis W Wo (09/01/19 08:04) Medications Given in ED Current Medications Medications Dose Ordered Sig/Cortney Route Start Time Stop Time Status Last Admin Dose Admin Azithromycin 500 mg/Sodium Chloride 250 ml @ 250 mls/hr ONCE ONCE IV 09/01/19 07:30 09/01/19 08:29 09/01/19 08:04 250 MLS/HR Ceftriaxone Sodium 2000 mg/ Sterile Water 20 ml @ 240 mls/hr ONCE ONCE IV 09/01/19 07:30 09/01/19 07:34 DC 09/01/19 08:01 240 MLS/HR Ondansetron HCl 4 mg ONCE ONCE IVP 09/01/19 06:15 09/01/19 06:17 DC 09/01/19 06:28 4 MG Vital Signs/I&O 09/01/19 06:10 Temp 37.2 Pulse 102 Resp 18 B/P (MAP) 130/75 (93) Pulse Ox 98 O2 Delivery Room Air Blood Pressure Mean: 93 Progress Progress Note : Time: 07:10 Progress Note Full sister evaluation and reassessment of history reveals the patient rambles and cannot recall the dates however his mother was present and verifies some new dates. Patient in reverse chronologic quarter had a fall in the right hip fracture in March 2019. Patient had 2 pins placed. Patient also had a m yocardial infarction 2016 and has one stent in the right main coronary artery. Patient and mother reports that he had a colostomy in 2013 secondary to opioid overuse and bowel obstruction with resultant peritonitis. He was also diagnosed with lung cancer sometime between 2013 in 2016 and is in the chemotherapy and is completed this process at the [facility]. Dr. Mullen is his attending physician. It was identified that her initial lab assessment the patient does have a lactate of 2.91. Initial ECG Impression Date: Sep 01, 2019 Initial ECG Impression Time: 06:21 Initial ECG Rate: 100 Initial ECG Rhythm: S.Tach (HR 100) Initial ECG Intervals: Normal (with slight ST elevation less than 1 mm in the anterior leads history of right coronary artery stent per patient and mother) Initial ECG Impression: Nonspecific Changes Departure Communication (Admissions) Time/Spoke to Admitting Phy: 08:09 Dr. Del Rosario was contacted and she agrees to admission to ICU. She also wanted an arterial blood gas. Admitting diagnosis will be pneumonia early sepsis history of stage IV lung cancer left lower quadrant colostomy history of [place] recent history of right hip pin secondary to fall and fracture Impression Primary Impression: Pneumonia Additional Impressions: Lung cancer Status post colostomy Status post myocardial infarction Disposition: ADMITTED INPATIENT Condition: Stable Admissions Decision to Admit Reason: Admit from ER (General) (pneumonia abdominal pain lung cancer stage IV left lower quadrant colostomy status post myocardial infarction leukocytosis 20,000) Decision to Admit/Date: Sep 01, 2019 Time/Decision to Admit Time: 08:16 Transfer Transfer Reason: Exceeds level of care Time Spoke to Accepting Phy: 08:[address] Del Rosario has accepted the patient to [facility] ICU Transfer Time: 08:17 Departure-Patient Inst. Referrals: SELF,RYAN ADKINS (PCP/Family) Primary Care Physician Patient Instructions: Pneumonia, Adult (DC) RAYRAY MONTE DO Sep 01, 2019 06:24
[2019-09-01 06:30] LABS: BASOPHILS # (AUTO) 0.1 10^3/uL (0.0-0.1); BASOPHILS % (AUTO) 0 % (0-10); EOSINOPHILS % (AUTO) 0 % (0-10); HEMATOCRIT 37 % (40-54); HEMOGLOBIN 12.9 G/DL (13.3-17.7); LYMPHOCYTES % (AUTO) 5 % (12-44); MEAN CORPUSCULAR HEMOGLOBIN 30 PG (25-34); MEAN CORPUSCULAR HGB CONC 35 G/DL (32-36); MEAN CORPUSCULAR VOLUME 86 FL (80-99); MEAN PLATELET VOLUME 8.4 FL (7.4-10.4); MONOCYTES # (AUTO) 1.4 X 10^3 (0.0-1.0); MONOCYTES % (AUTO) 7 % (0-12); NEUTROPHILS # (AUTO) 17.4 X 10^3 (1.8-7.8); NEUTROPHILS % (AUTO) 87 % (42-75); PLATELET COUNT 315 10^3/uL (130-400); RED CELL DISTRIBUTION WIDTH 13.7 % (10.0-14.5)
[2019-09-01 06:41] LABS: LYMPHOCYTES % (MANUAL) 3 %; MICROCYTOSIS SLIGHT; MONOCYTES % (MANUAL) 7 %; NEUTROPHILS % (MANUAL) 89 %; REACTIVE LYMPHOCYTES 1 %
--- NOTE | 2019-09-01 06:49 | Diagnostic Imaging Report ---
INDICATION: Nausea and vomiting FINDINGS: The heart size is normal. There is unchanged mass in the right lung apex. There is also prominence of left hilum. There is no pleural effusion or pneumothorax. There does appear to be some chronic interstitial lung disease in the bases. IMPRESSION: Unchanged mass right lung apex as well as some prominence in the left hilum. Chronic appearing interstitial infiltrates in the lung bases. No other acute cardiopulmonary abnormality. Dictated by: Dictated on workstation # [id number]
[2019-09-01 06:58] LABS: ALANINE AMINOTRANSFERASE 8 U/L (0-55); ALKALINE PHOSPHATASE 225 U/L (40-136); BILIRUBIN,TOTAL 0.2 MG/DL (0.1-1.0); BUN/CREATININE RATIO 8; CALCIUM 9.5 MG/DL (8.5-10.1); CARBON DIOXIDE 24 MMOL/L (21-32); CHLORIDE 90 MMOL/L (98-107); CREATININE SERUM 0.85 MG/DL (0.60-1.30); GFR ESTIMATED > 60; GLUCOSE 129 MG/DL (70-105); MAGNESIUM 1.7 MG/DL (1.6-2.4); POTASSIUM 3.9 MMOL/L (3.6-5.0); SODIUM 131 MMOL/L (135-145); TOTAL PROTEIN 7.4 GM/DL (6.4-8.2)
[2019-09-01 06:59] LABS: ALBUMIN 4.1 GM/DL (3.2-4.5); LIPASE 17 U/L (8-78)
[2019-09-01] MEDS ORDERED: AZITHROMYCIN INJECTION 500 MG in NS (IVPB) 250 ML IV ONE (07:30)
[2019-09-01] MEDS ORDERED: NS IV 1000 ML 1,000 ML IV SCH (07:30)
[2019-09-01] MEDS ORDERED: cefTRIAXone FOR IV USE 2,000 MG in WATER (STERILE) FOR INJECTION 20 ML IV ONE (07:30)
[2019-09-01] MEDS ORDERED: PANTOPRAZOLE 40 MG (PROTONIX) VIAL IV ONE (08:15)
[2019-09-01] MEDS ORDERED: LIDOCAINE 2% VISCOUS 15 ML UDC PO ONE (08:15)
[2019-09-01] MEDS ORDERED: PROCHLORPERAZINE 10 MG/2ML INJ (COMPAZINE) ONE (08:15)
[2019-09-01] MEDS ORDERED: ANTACID SUSP 30 ML UDC (MYLANTA) PO ONE (08:15)
[2019-09-01] MEDS ORDERED: NS 100 ML (IVPB) BAG IV ONE (08:30)
[2019-09-01] MEDS ORDERED: PROCHLORPERAZINE 10 MG/2ML INJ (COMPAZINE) IV ONE (08:30)
[2019-09-01] MEDS ORDERED: CATHETER FLUSH 10 ML SYR IV PRN (08:30)
[2019-09-01] MEDS ORDERED: IOHEXOL 350 MG/ML 100 ML (OMNIPAQUE 350) VIAL IV ONE (08:30)
[2019-09-01] MEDS ORDERED: HOLD METFORMIN - RECEIVED CONTRAST 20 ML VIAL IV SCH (08:30)
[2019-09-01 09:26] LABS: ABG PCO2 32 MMHG (35-45); ABG PH 7.48 (7.37-7.43); ABG PO2 86 MMHG (79-93); ABG TCO2 24.8 MMOL/L (21.0-31.0)
[2019-09-01 09:27] LABS: ABG BASE EXCESS 0.9 MMOL/L (-2.5-2.5); ABG OXYGEN SATURATION 97 % (94-100); ALLENS TEST OK; INSPIRED O2 ROOM AIR; PATIENT TEMP 37.1 C; VENTILATOR NO
[2019-09-01 09:49] LABS: BACTERIA,URINE NEGATIVE /HPF; BILIRUBIN,URINE NEGATIVE (NEGATIVE); CLARITY,URINE CLEAR; COLOR,URINE YELLOW; GLUCOSE, URINE (UA) NEGATIVE (NEGATIVE); KETONES,URINE NEGATIVE (NEGATIVE); LEUKOCYTE ESTERASE ,URINE NEGATIVE (NEGATIVE); NITRITE,URINE NEGATIVE (NEGATIVE); PH,URINE 8.5 (5-9); PROTEIN,URINE NEGATIVE (NEGATIVE); WBC,URINE RARE /HPF
[2019-09-01 09:50] LABS: URINE OTHER FEW SPERM /HPF
--- NOTE | 2019-09-01 09:50 | Diagnostic Imaging Report ---
PROCEDURE: CT chest, abdomen, and pelvis with and without contrast. TECHNIQUE: Precontrast images were obtained of the chest, abdomen, and pelvis. Multiple contiguous axial images were obtained through the chest, abdomen, and pelvis after administration of intravenous contrast. Auto Exposure Controls were utilized during the CT exam to meet ALARA standards for radiation dose reduction. INDICATION: Nausea and vomiting. Stage IV metastatic cancer. COMPARISON: CTA chest and CT abdomen and pelvis with IV contrast 01/15/2019. FINDINGS: CT CHEST: Spiculated mass in the right lung apex measures 3.1 x 2.7 cm, previously 3.7 x 3.0 cm when measured in a similar fashion. Bronchiectasis in the posterior right lower lobe. Moderate to advanced centrilobular emphysema. Calcified left hilar lymph nodes and calcified granuloma in the left lung. No pleural effusion or pneumothorax. Normal caliber thoracic aorta and central pulmonary arteries. Subcarinal lymphadenopathy measures up to 1.7 cm in short axis dimension, stable. Para-aortic mediastinal lymphadenopathy is also stable measuring up to 1.0 cm in short axis dimension. Normal heart size. No pericardial effusion. Small esophageal hiatal hernia. CT Abdomen and pelvis: Calcific granulomas in the liver and spleen. The gallbladder, pancreas, adrenals and collecting systems are negative. Simple appearing cysts in the kidneys. Normal urinary bladder. Mild prostatic enlargement. Sigmoid colectomy with ostomy. Yris pouch. There are several dilated loops of small bowel with the more distal small bowel decompressed. A focal transition point is not identified. No pneumatosis or portal venous gas. No free intraperitoneal air or fluid. No lymphadenopathy. Occluded bilateral iliac stents. The bypass grafts appear patent. Postoperative findings in the right hip. No acute osseous findings. IMPRESSION: 1. Several dilated loops of small bowel with the more distal small bowel decompressed. Findings are suspicious for bowel obstruction. However, the focal transition point is not identified. No free intraperitoneal air or fluid. No pneumatosis or portal venous gas. 2. Partial colectomy with ostomy and Yris pouch. 3. Spiculated mass in the right lung apex is mildly smaller than on the prior exam. Stable mediastinal lymphadenopathy. 4. Additional chronic and incidental findings as above. Dictated by: Dictated on workstation # [id number]
[2019-09-01 09:56] LABS: AMPHETAMINE SCREEN, URINE NEGATIVE (NEGATIVE); BARBITURATE SCREEN URINE POSITIVE (NEGATIVE); BENZODIAZEPINES SCREEN URINE POSITIVE (NEGATIVE); CANNABINOID SCREEN, URINE NEGATIVE (NEGATIVE); COCAINE SCREEN URINE NEGATIVE (NEGATIVE); METHADONE STAT NEGATIVE (NEGATIVE); METHAMPHETAMINE SCREEN URINE S NEGATIVE (NEGATIVE); OPIATE SCREEN URINE NEGATIVE (NEGATIVE); OXYCODONE STAT NEGATIVE (NEGATIVE); PROPOXYPHENE STAT NEGATIVE (NEGATIVE); TRICYCLIC ANTIDEPRESSANTS SCRE NEGATIVE (NEGATIVE)
[2019-09-01] MEDS ORDERED: PHEN100C4 PO (11:07)
[2019-09-01] MEDS ORDERED: METO-333 PO (11:07)
[2019-09-01] MEDS ORDERED: OLAN10TA19 PO (11:07)
[2019-09-01] MEDS ORDERED: PANT40TA3 PO (11:07)
[2019-09-01] MEDS ORDERED: GABA-488 PO (11:07)
[2019-09-01] MEDS ORDERED: MIRT30TA6 PO (11:07)
[2019-09-01] MEDS ORDERED: ALPR0.5T7 PO (11:07)
[2019-09-01] MEDS: NS IV 1000 ML 1,000 ML IV SCH ×5 (11:08→22:55)
--- NOTE | 2019-09-01 11:08 | History & Physical-Hospitalist ---
History of Present Illness HPI/Chief Complaint Chief complaint: Pneumonia with possible small bowel obstruction History of present illness: This is a 58-year-old white male clinic patient of Dr. Mullen in [place] in Dr. Ortez at [facility] who treats his lung cancer who presented to [place] [facility] shortness of breath pain and nausea and vomiting. 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 He continues to smoke. Abdominal pain was assessed with CT scan at [place] [facility] showing possible small bowel obstruction surgery Dr. Gregg was consulted. Antibiotics of cefepime and Zithromax were initiated along with IV fluids and bowel rest. Source: patient, RN/MD Exam Limitations: no limitations Date Seen 09/01/19 Time Seen by a Provider: 11:15 Attending Physician Ros Dhaliwal Maxwell MD Referring Physician Date of Admission Sep 01, 2019 at 09:24 Home Medications & Allergies Home Medications Reviewed patient Home Medication Reconciliation performed by pharmacy medication reconciliations aerospace physiological technician and/or nursing. Patients Allergies have been reviewed. Allergies Allergies Coded Allergies nitroglycerin (Verified Allergy, Unknown, 04/14/16) morphine (Verified Adverse Reaction, Mild, nausea, 01/15/19) Past Vgkgnzw-Afdonj-Oybkjz Hx Past Med/Social Hx: Reviewed Nursing Past Med/Soc Hx, Reviewed and Corrections made Patient Social History Marrital Status: single Employed/Student: unemployed Alcohol Use: Denies Use Recreational Drug Use: No Smoking Status: Heavy Tobacco Smoker Type Used: Cigarettes 2nd Hand Smoke Exposure: No Recent Foreign Travel: No Contact w/other who traveled: No Recent Hopitalizations: No Recent Infectious Disease Expo: No Immunizations Up To Date Date of Pneumonia Vaccine: May 11, 2016 Date of Influenza Vaccine: May 02, 2019 Seasonal Allergies Seasonal Allergies: No Past Medical History Surgeries: Bowel Surgery (colostomy left lower quadrant), Cardiac (patient reports a history of myocardial infarction but no coronary artery bypass graft poor historian) Respiratory: COPD, Emphysema, Pneumonia Cardiac: Coronary Artery Disease, Heart Attack (per patient history minimal details) Neurological: Seizure Disorder Gastrointestinal: Gastroesophageal Reflux, Gastrointestinal Bleed, Chronic Constipation (assaulting and colostomy after opioid overuse disorder) Musculoskeletal: Arthritis (with gangrene of 1 foot resulting in chronic antibiotic therapy years ago) Cancer: Lung (stage IV ecology treatment at the [facility]) What Type of Treatment Did You: Chemotherapy, Other Cancer: Ongoing oncology care and evaluation at the [facility] Psychosocial: Anxiety Family History Reviewed Nursing Family Hx Review of Systems Constitutional: see HPI, dizziness, malaise, weakness Respiratory: cough, dyspnea on exertion Cardiovascular: chest pain Gastrointestinal: LLQ, loss of appetite, nausea, vomiting Physical Exam Physical Exam Vital Signs Vital Signs - First Documented 09/01/19 06:10 Temp 37.2 Pulse 102 Resp 18 B/P (MAP) 130/75 (93) Pulse Ox 98 O2 Delivery Room Air Capillary Refill : Less Than 3 Seconds Height, Weight, BMI Height: 6'0" Weight: 147lbs. oz. 66.782391km; 20.00 BMI Method:Stated General Appearance: Anxious, Chronically ill, Cachetic, Mild Distress Eyes: Right Eye Normal Inspection, Right Eye PERRL HEENT: PERRL/EOMI, Normal ENT Inspection, Pharynx Normal, Moist Mucous Membranes Neck: Full Range of Motion, Normal Inspection, Non Tender Respiratory: Chest Non Tender, No Accessory Muscle Use, No Respiratory Distress, Crackles, Decreased Breath Sounds, Wheezing Cardiovascular: Regular Rate, Rhythm, No Edema, No Gallop, No JVD, No Murmur, Normal Peripheral Pulses Gastrointestinal: No Organomegaly, No Pulsatile Mass, Abnormal Bowel Sounds, Distended, Tenderness Back: Normal Inspection, No CVA Tenderness, No Vertebral Tenderness Extremity: Normal Capillary Refill, Normal Inspection, Normal Range of Motion, Non Tender, No Calf Tenderness, No Pedal Edema Neurologic/Psychiatric: Alert, Oriented x3, No Motor/Sensory Deficits, sales and service associate II- XII Norm as Tested, Depressed Affect Skin: Normal Color, Warm/Dry Lymphatic: No Adenopathy Results Results/Procedures Labs Laboratory Tests 09/01/19 06:20 Patient resulted labs reviewed. Assessment/Plan Admission Diagnosis Assessment: Pneumonia Lung cancer Early small bowel obstruction Chronic colostomy due to perforated bowel in 2016 Current smoker COPD Exacerbation of bronchospasm Cachexia with poor reserve Plan: Cefepime and Zithromax General surgery consultation Dr. Gomes is appreciated Monitor blood work Admission Status: Inpatient Order (span 2 midnights) Reason for Inpatient Admission: Pneumonia with small bowel obstruction Diagnosis/Problems Diagnosis/Problems (1) Pneumonia Status: Acute (2) Lung cancer Status: Acute (3) Abdominal pain Status: Acute (4) Status post colostomy Status: Acute Clinical Quality Measures DVT/VTE Risk/Contraindication: Risk Factor Score Per Nursin RFS Level Per Nursing on Admit: 4+=Very High ROS DHALIWAL DO Sep 01, 2019 11:08
[2019-09-01] MEDS ORDERED: PATIENT MAY USE OWN MED,SINGLE MED PO SCH (11:30)
[2019-09-01] MEDS: PHENYTOIN 100 MG (DILANTIN) CAP PO SCH ×3 (12:21→20:17)
[2019-09-01] MEDS: methylPREDNISolone 40 MG/ML (Solu-MEDROL) VIAL IV SCH ×2 (12:21→17:47)
[2019-09-01] MEDS: CEFEPIME INJECTION 1,000 MG in WATER (STERILE) FOR INJECTION 10 ML IV SCH ×2 (12:21→17:47)
--- NOTE | 2019-09-01 13:39 | Consultation-Cardiology ---
HPI-Cardiology Cardiology Consultation: Date of Consultation 09/01/19 Date of Admission Attending Physician Ros Del Rosario DO Admitting Physician James Mullen MD Consulting Physician Marci KOEHLER MD HPI: Time Seen by a Provider: 13:34 Chief Complaint: Nausea/vomiting This is a 58-year-old gentleman who came to the ER for nausea and vomiting. He has history of CAD, PCI. He has previous history of bowel obstruction with peritonitis secondary to opioids overuse resulting in a colostomy. Lung cancer stage IV. Active smoker. No pertinent family history. Denies any chest pain or significant shortness of breath. Denies syncope, near-syncope or palpitations. Review of Systems-Cardiology Review of Systems Constitutional: As described under HPI; No As described under HPI, No no symptoms reported, No chills, No fever, No lightheadedness Eyes: No As described under HPI, No no symptoms reported, No blindness, No blurred vision, No contact lenses, No drainage, No decreased acuity, No foreign body sensation, No pain, No vision change Ears/Nose/Throat: No As described under HPI, No no symptoms reported, No chronic hearing loss, No ear discharge, No ear pain, No nasal drainage, No ulcerations Respiratory: No no symptoms reported; As described under HPI; No As described under HPI, No cough, No orthopnea, No shortness of breath, No SOB with excertion Cardiovascular: No no symptoms reported; As described under HPI; No As described under HPI, No chest pain, No edema, No irregular heart rate, No lightheadedness, No palpitations Gastrointestinal: No no symptoms reported, No As described under HPI, No abdomen distended, No abdominal pain, No blood streaked bowels, No constipation, No diarrhea, No nausea, No vomiting; nausea/vomiting/diarrhea; No stool coloration changes Genitourinary: No As described under HPI, No burning, No dysuria, No discharge, No frequency, No flank pain, No hematuria, No urgency Skin: No rash, No skin related problems, No ulcerations Psychiatric/Neurological: No anxiety, No depression, No seizure, No focal weakness, No syncope Hematologic: No bleeding abnormalities [id number] Hx Patient Social History Marrital Status: single Employed/Student: unemployed Alcohol Use: Denies Use Recreational Drug Use: No Smoking Status: Heavy Tobacco Smoker Type Used: Cigarettes 2nd Hand Smoke Exposure: No Recent Foreign Travel: No Recent Infectious Disease Expo: No Hospitalization with Isolation: Denies Immunizations Up To Date Date of Pneumonia Vaccine: May 11, 2016 Date of Influenza Vaccine: May 02, 2019 Past Medical History PMH As described under Assessment. Allergies and Home Medications Allergies Coded Allergies: nitroglycerin (Verified Allergy, Unknown, 04/14/16) morphine (Verified Adverse Reaction, Mild, nausea, 01/15/19) Home Medications Alprazolam 0.5 Mg Tablet, 0.5 MG PO TID PRN for ANXIETY, (Reported) Gabapentin 300 Mg Capsule, 300 MG PO TID, (Reported) Metoprolol Tartrate 25 Mg Tablet, 25 MG PO DAILY, (Reported) Mirtazapine 30 Mg Tablet, 30 MG PO DAILY, (Reported) Olanzapine 10 Mg Tablet, 10 MG PO BID, (Reported) Oxycodone HCl/Acetaminophen 1 Each Tablet, 1 EACH PO Q6H PRN for PAIN-SEVERE TO BREAKTHROUGH Prescribed by: SERAFIN SINGER on 01/15/191946 Pantoprazole Sodium 40 Mg Tablet.dr, 40 MG PO DAILY, (Reported) Phenytoin Sodium Extended 100 Mg Capsule, 100 MG PO QID, (Reported) Patient Home Medication List Home Medication List Reviewed: Yes Physical Exam-Cardiology Physical Exam Vital Signs/I&O 09/01/19 09/01/19 09/01/19 09/01/19 06:10 10:00 10:30 10:30 Temp 37.2 37.7 Pulse 102 95 110 Resp 18 18 15 B/P (MAP) 130/75 (93) 131/80 142/89 (106) Pulse Ox 98 97 97 O2 Delivery Room Air Room Air Room Air Room Air 09/01/19 09/01/19 09/01/19 09/01/19 10:50 11:00 12:00 12:00 Temp 37.2 Pulse 110 106 109 Resp 15 29 B/P (MAP) 142/89 (106) 115/74 (88) Pulse Ox 98 95 O2 Delivery Room Air Room Air 09/01/19 09/01/19 12:05 12:33 Pulse 104 Pulse Ox 98 O2 Delivery Room Air Capillary Refill : Less Than 3 Seconds Constitutional: appears stated age, AAO x 3; No apparent distress; other (sick- looking gentleman.) HEENT: PERRL; No discharge; hearing is well preserved, oral hygience is good; No ulceration, No xanthelasmas are seen Neck: No carotid bruit; carotid pulses are 2 + bilaterally Respiratory: chest is bilaterally symmetric, lungs clear to auscultation Cardiovascular: regular rate-rhythm, S1 and S2 Gastrointestinal: soft, audible bowel sounds; No spleenomegaly Rectal: deferred Extremities: normal range of motion, non-tender, normal inspection; No clubbing, No cyanosis; no lower extremity edema bilateral; No significant edema Neurologic/Psychiatric: no motor/sensory deficits, alert, normal mood/affect, oriented x 3, power is 5/5 both on sides Skin: normal color, warm/dry; No rash, No ulcerations Lymphatic: no adenopathy Data Review Labs Laboratory Tests 09/01/19 06:20: White Blood Count 20.0H, Red Blood Count 4.33L, Hemoglobin 12.9L, Hematocrit 37L , Mean Corpuscular Volume 86, Mean Corpuscular Hemoglobin 30, Mean Corpuscular Hemoglobin Concent 35, Red Cell Distribution Width 13.7, Platelet Count 315, Mean Platelet Volume 8.4, Neutrophils (%) (Auto) 87H, Lymphocytes (%) (Auto) 5L, Monocytes (%) (Auto) 7, Eosinophils (%) (Auto) 0, Basophils (%) (Auto) 0, Neutrophils # (Auto) 17.4H, Lymphocytes # (Auto) 1.0, Monocytes # (Auto) 1.4H, Eosinophils # (Auto) 0.0, Basophils # (Auto) 0.1, Neutrophils % (Manual) 89, Lymphocytes % (Manual) 3, Monocytes % (Manual) 7, Reactive Lymphocytes 1, Microcytosis SLIGHT, Sodium Level 131L, Potassium Level 3.9, Chloride Level 90L, Carbon Dioxide Level 24, Anion Gap 17H, Blood Urea Nitrogen 7, Creatinine 0.85, Estimat Glomerular Filtration Rate > 60, BUN/Creatinine Ratio 8, Glucose Level 129H, Lactic Acid Level 2.91*H, Calcium Level 9.5, Corrected Calcium 9.4, Magnesium Level 1.7, Total Bilirubin 0.2, Aspartate Amino Transf (AST/SGOT) 15, Alanine Aminotransferase (ALT/SGPT) 8, Alkaline Phosphatase 225H, Troponin I < 0.30, Total Protein 7.4, Albumin 4.1, Lipase 17 09/01/19 09:23: Blood Gas Puncture Site RT RADIAL, Blood Gas Patient Temperature 37.1 C, Arterial Blood pH 7.48H, Arterial Blood Partial Pressure CO2 32L, Arterial Blood Partial Pressure O2 86, Arterial Blood HCO3 24, Arterial Blood Total CO2 24.8, Arterial Blood Oxygen Saturation 97, Arterial Blood Base Excess 0.9, Remington Test OK, Blood Gas Ventilator Setting NO, Blood Gas Inspired Oxygen ROOM AIR 09/01/19 09:30: Lactic Acid Level 1.69, Urine Color YELLOW, Urine Clarity CLEAR, Urine pH 8.5, Urine Specific Luna 1.015L, Urine Protein NEGATIVE, Urine Glucose (UA) NEGATIVE, Urine Ketones NEGATIVE, Urine Nitrite NEGATIVE, Urine Bilirubin NEGATIVE, Urine Urobilinogen 0.2, Urine Leukocyte Esterase NEGATIVE, Urine RBC (Auto) NEGATIVE, Urine RBC NONE, Urine WBC RARE, Urine Squamous Epithelial Cells NONE, Urine Crystals NONE, Urine Bacteria NEGATIVE, Urine Casts NONE, Urine Mucus NONE, Urine Other FEW SPERMH, Urine Culture Indicated NO, Urine Opiates Screen NEGATIVE, Urine Oxycodone Screen NEGATIVE, Urine Methadone Screen NEG ATIVE, Urine Propoxyphene Screen NEGATIVE, Urine Barbiturates Screen POSITIVEH, Ur Tricyclic Antidepressants Screen NEGATIVE, Urine Phencyclidine Screen NEGATIVE, Urine Amphetamines Screen NEGATIVE, Urine Methamphetamines Screen NEGATIVE, Urine Benzodiazepines Screen POSITIVEH, Urine Cocaine Screen NEGATIVE, Urine Cannabinoids Screen NEGATIVE A/P-Cardiology Assessment/Admission Diagnosis Nausea, vomiting, Stage IV lung cancer, Active smoking, History of colostomy, bowel obstruction, History of opioid overuse, CAD, PCI in the past Plan Nausea, vomiting, defer to the primary team and general surgery. Stage IV lung cancer, oncology following. Active smoking, only suggested to quit. History of colostomy, bowel obstruction, History of opioid overuse, monitor clinically. CAD, PCI in the past, not in any antiplatelet therapy. We need to get old records from Dr. Bernabe's office. Thank you for your consultation. Please call me if you have any questions. Donta Koehler MD, FACP, FACC, FSCAI, FHRS, CCDS Interventional Cardiology Cardiac Electrophysiology Vascular Medicine and Endovascular Interventions Clinical Quality Measures DVT/VTE Risk/Contraindication: Risk Factor Score Per Nursin RFS Level Per Nursing on Admit: 4+=Very High Marci KOEHLER MD Sep 01, 2019 13:39
[2019-09-01] MEDS: RT-ALBUTEROL/IPRATROPIUM 3 ML (DUONEB) VIAL INH SCH ×3 (14:15→21:54)
[2019-09-01] MEDS: SUCRALFATE 1 GM (CARAFATE) TAB PO SCH ×3 (15:00→20:17)
[2019-09-01] MEDS ORDERED: PROCHLORPERAZINE 10 MG/2ML INJ (COMPAZINE) IV PRN (15:15)
[2019-09-01] MEDS: ENOXAPARIN 40 MG/0.4 ML (LOVENOX) SYR SC SCH (17:47)
[2019-09-01] MEDS ORDERED: cefTRIAXone FOR IV USE 2,000 MG in WATER (STERILE) FOR INJECTION 20 ML IV SCH (20:00)
[2019-09-01] MEDS: MELATONIN 3 MG TABLET PO SCH (20:47)
[2019-09-01] MEDS ORDERED: NON-FORMULARY MEDICATION 1 EA EA (Olanzapine 10 MG) PO SCH (21:00)
[2019-09-01] MEDS ORDERED: oxyCODONE/APAP 10/325MG (PERCOCET 10) TABLET PO PRN (21:00)
--- NOTE | 2019-09-01 21:55 | NUR ---
pt to room from [facility],
[2019-09-01] MEDS: GABAPENTIN 300 MG (NEURONTIN) CAP PO SCH (22:41)
[2019-09-01] MEDS: LORazepam 0.5 MG (ATIVAN) TABLET PO PRN (22:41)
[2019-09-02] VITALS: BP 135/67
[2019-09-02] MEDS ORDERED: WATER (STERILE) FOR INJECTION 10 ML ONE ×4 (00:14→18:18)
[2019-09-02] MEDS ORDERED: CEFEPIME 1 GM (MAXIPIME) VIAL ONE ×4 (00:14→18:18)
[2019-09-02] MEDS: methylPREDNISolone 40 MG/ML (Solu-MEDROL) VIAL IV SCH ×4 (00:26→18:23)
[2019-09-02] MEDS: CEFEPIME INJECTION 1,000 MG in WATER (STERILE) FOR INJECTION 10 ML IV SCH ×4 (00:27→18:22)
--- NOTE | 2019-09-02 02:15 | NUR ---
c/o smell of the room, attempt to explain that gas out of colostomy bag because of vent. pt pulled at bag until seal broke. stool on linen and clothes. pt up to shower but refused to let aid use soap to wash him,
[2019-09-02] MEDS: RT-ALBUTEROL/IPRATROPIUM 3 ML (DUONEB) VIAL INH SCH ×6 (02:28→21:47)
[2019-09-02 04:21] VITALS: BP 147/87
--- NOTE | 2019-09-02 04:39 | CONSULTATION REPORT ---
DATE OF SERVICE: 09/01/2019 ATTENDING PHYSICIAN: Dr. Mullen. HISTORY OF PRESENT ILLNESS: The patient is a 58-year-old male who was seen in consultation with Dr. Gregg. The patient reports that for the last 3 days he has been having episodes of nausea and reports that he was eating spaghetti with tomato sauce last night and reports approximately an hour later, he started having episodes of vomiting. He reports that this occurred several times throughout the night and even into the morning hours. He reports that towards the end he reports that he was throwing up small amounts of blood. He does report a history of gastroesophageal reflux disease as well as EGDs in the past. He reports it has been several years since he has had an EGD and reports that after his last EGD, he reports that he was instructed not to get another one in the future due to what sounds like having to be resuscitated. He does have significant risk factors of peptic ulcer disease including a [id number]-[id number] smoking history. He also has a history of stage IV lung cancer and has underwent chemotherapy treatment. He does report that he is having episodes of epigastric burning sensation currently. He does take a PPI or acid rn maternal child at home. He denies any fever or chills. He does appear to be a poor historian and not recall all of his medical history and some of his information obtained from prior records. PAST MEDICAL HISTORY: Hypertension, gastroesophageal reflux disease, peptic ulcer disease, coronary artery disease, stage IV lung cancer, myocardial infarction, anxiety, depression, neuropathy, seizures. PAST SURGICAL HISTORY: ORIF right hip, cardiac catheterization with stent placement, right leg stent placed as well as a bypass, Groshong port placement, bowel resection with colostomy and Butler's pouch due to bowel perforation and right second toe amputation. ALLERGIES: MORPHINE, NITROGLYCERIN. MEDICATIONS: 1. Xanax 0.5 mg t.i.d. p.r.n. 2. Gabapentin 300 mg t.i.d. 3. Metoprolol 25 mg daily. 4. Mirtazapine 30 mg daily. 5. Olanzapine 10 mg b.i.d. 6. Percocet 10/325 mg q.6 hours p.r.n. 7. Protonix 40 mg daily. 8. Phenytoin 100 mg q.i.d. SOCIAL HISTORY: Positive for smoke 1 pack per day for 40 years, negative for alcohol. FAMILY HISTORY: Noncontributory. VITAL SIGNS: Blood pressure is 115/74, pulse 109, respirations 29, pulse ox 95% on room air, temperature 37.2 degrees Celsius. REVIEW OF SYSTEMS: This is a chronically ill-appearing male who does appear to have poor hygiene. He is not experiencing any shortness of breath or difficulty breathing. No chest pain, palpitations or diaphoresis. He does report episodes of nausea, vomiting as well as hematemesis. He does report epigastric burning sensation. No diarrhea or constipation. No red blood per rectum. No dark tarry stools. No fever or chills. No recent inadvertent weight loss. All other review of systems negative. PHYSICAL EXAMINATION: CHEST: Coarse and diminished breath sounds bilaterally. HEART: Regular, no murmurs. EXTREMITIES: No lower extremity edema. Negative Homans sign. He does have a right second toe amputation as well as a distal half of the 3rd right toe missing. HEENT: No scleral icterus. NECK: No cervical lymphadenopathy. ABDOMEN: Soft, nondistended. There is a left colostomy. There is some tenderness on palpation in the epigastric region. No peritoneal signs. No palpable masses. No organomegaly. SKIN: Warm, dry and pink. NEUROLOGIC: Awake, alert, oriented x3. ASSESSMENT AND PLAN: A 58-year-old male with peptic ulcer disease. He does have a history of gastroesophageal reflux disease as well as a history of stage IV lung cancer. He was also found to have an elevated white count of 20,000 in the emergency room and found to have pneumonia, which is currently being managed by the medical team. It was also discussed with the patient about proceeding with an EGD versus conservative management with a PPI or acid rn maternal child as well as Carafate. He reports that at this time he does not wish to proceed with an EGD, but would agree to the medical management, which we will proceed with Protonix as well as Carafate q.i.d. He does appear at this time to have stable hemoglobin of 12.9. However, if this does have a significant drop then he may benefit from upper endoscopy. At this time, we will proceed with a conservative medical management. Job ID: [id number] DocumentID: [id number] Dictated Date: 09/01/2019 12:27:29 Crumb Packer Date: 09/01/2019 13:02:40 Dictated By: JAYSON SUTTON
[2019-09-02 05:30] LABS: BASOPHILS % (AUTO) 0 % (0-10); EOSINOPHILS % (AUTO) 0 % (0-10); HEMATOCRIT 29 % (40-54); LYMPHOCYTES # (AUTO) 1.1 X 10^3 (1.0-4.0); LYMPHOCYTES % (AUTO) 8 % (12-44); MEAN CORPUSCULAR HEMOGLOBIN 29 PG (25-34); MEAN CORPUSCULAR HGB CONC 34 G/DL (32-36); MEAN CORPUSCULAR VOLUME 86 FL (80-99); MEAN PLATELET VOLUME 8.3 FL (7.4-10.4); MONOCYTES # (AUTO) 0.8 X 10^3 (0.0-1.0); MONOCYTES % (AUTO) 6 % (0-12); NEUTROPHILS # (AUTO) 12.2 X 10^3 (1.8-7.8); NEUTROPHILS % (AUTO) 86 % (42-75); PLATELET COUNT 288 10^3/uL (130-400); RED CELL DISTRIBUTION WIDTH 14.3 % (10.0-14.5); WHITE BLOOD COUNT 14.1 10^3/uL (4.3-11.0)
[2019-09-02 05:57] LABS: BUN/CREATININE RATIO 8; CALCIUM 8.1 MG/DL (8.5-10.1); CARBON DIOXIDE 20 MMOL/L (21-32); CHLORIDE 104 MMOL/L (98-107); CREATININE SERUM 0.73 MG/DL (0.60-1.30); GFR ESTIMATED > 60; GLUCOSE 105 MG/DL (70-105); MAGNESIUM 1.4 MG/DL (1.6-2.4); PHOSPHORUS 3.3 MG/DL (2.3-4.7); POTASSIUM 3.9 MMOL/L (3.6-5.0); SODIUM 132 MMOL/L (135-145)
[2019-09-02] MEDS ORDERED: AZITHROMYCIN INJECTION 500 MG in NS (IVPB) 250 ML IV SCH (07:00)
[2019-09-02] MEDS: SUCRALFATE 1 GM (CARAFATE) TAB PO SCH ×4 (07:03→19:36)
--- NOTE | 2019-09-02 07:28 | Diagnostic Imaging Report ---
INDICATION: Dyspnea. Comparison made with prior examination of 09/01/2019. FINDINGS: The heart size is normal. There is persistent right upper lobe mass. There is prominence of the left hilum. There is no pleural effusion or pneumothorax. Mediastinum is unremarkable. [id number] catheter overlies left hemithorax. IMPRESSION: Persistent mass in the right lung apex as well as some prominence of left hilum. Dictated by: Dictated on workstation # [id number]
[2019-09-02] MEDS: ONDANSETRON 4 MG/2 ML (SDV) Z0FRAN IVP PRN (07:59)
[2019-09-02] MEDS: GABAPENTIN 300 MG (NEURONTIN) CAP PO SCH ×3 (07:59→19:36)
[2019-09-02] MEDS: PANTOPRAZOLE 40 MG (PROTONIX) TAB PO SCH (07:59)
[2019-09-02] MEDS: PHENYTOIN 100 MG (DILANTIN) CAP PO SCH ×4 (07:59→19:36)
[2019-09-02 08:00] VITALS: BP 149/80
[2019-09-02] MEDS: meTOprolol TARTRATE 25 MG (LOPRESSOR) TABLET PO SCH (08:14)
[2019-09-02] MEDS: MIRTAZAPINE 15 MG (REMERON) TAB PO SCH (08:21)
[2019-09-02] MEDS: OLANZapine 5 MG (ZyPREXA) TAB PO SCH ×2 (08:21→19:35)
--- NOTE | 2019-09-02 08:25 | Progress Note - Hospitalist ---
GILBERTO ESQUIVEL,MED STUDENT 09/02/19 0825: Subjective HPI/CC On Admission Date Seen by Provider: Sep 02, 2019 Time Seen by Provider: 08:01 Chief complaint: Pneumonia with possible small bowel obstruction History of present illness: This is a 58-year-old white male clinic patient of Dr. Mullen in [place] in Dr. Ortez at [facility] who treats his lung cancer who presented to [place] ER shortness of breath pain and nausea and vomiting. 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 He continues to smoke. Abdominal pain was assessed with CT scan at [place] ER showing possible small bowel obstruction surgery Dr. Gregg was consulted. Antibiotics of cefepime and Zithromax were initiated along with IV fluids and bowel rest. Subjective/Events-last exam Pt complains of 7/10 aching pain in his stomach and RLQ. States pain began after drinking some Sprite and coffee this morning. Pt colostomy bag exploded last night. Approx 50mls of soft, dark brown stool currently in bag. Pt states stool is darker than his normal Was seen by Dr. Gregg, who rec. EGD. Pt declined. Trying carafate and PPI Last seen by Onc [address] showed some reduction in lung mass size. Denies nausea/vomiting. Complains of smell in previous ICU room and current room on med/surg floor. Pt is surprised that no one else can smell it. Told pt I would get him a fan and pt was placated States he does not know how much more he can take. Advised pt we will get palliative care on board Focused Exam Lactate Level 09/01/19 06:20: Lactic Acid Level 2.91*H 09/01/19 09:30: Lactic Acid Level 1.69 Objective Exam Vital Signs Vital Signs Date Time Temp Pulse Resp B/P (MAP) Pulse Ox O2 Delivery O2 Flow Rate FiO2 09/02/19 08:00 37.4 99 22 149/80 (103) 98 Room Air Capillary Refill : Less Than 3 Seconds General Appearance: No Apparent Distress, Anxious, Cachetic HEENT: Moist Mucous Membranes, Other (white plaque on tongue ) Respiratory: Chest Non Tender, No Accessory Muscle Use, No Respiratory Distress, Crackles, Decreased Breath Sounds Cardiovascular: Regular Rate, Rhythm, No Edema, No Gallop, No Murmur, Normal Peripheral Pulses Gastrointestinal: Abnormal Bowel Sounds (hyperactive on R side and epigastric region, hypoactive on left ), Distended (Right side of abd distended ); No Guarding; Tenderness (Epigastric, RUQ ) Back: No CVA Tenderness, No Vertebral Tenderness Extremity: No Calf Tenderness, No Pedal Edema Neurologic/Psychiatric: Alert, Oriented x3, Depressed Affect (flat ) Skin: Normal Color, Warm/Dry Results/Procedures Lab Laboratory Tests 09/02/19 05:20 Patient resulted labs reviewed. Assessment/Plan Assessment and Plan Assess & Plan/Chief Complaint Assessment PNA Lung cancer stage IV Nausea, vomiting possible hematemesis, gastritis Respiratory alkalosis Elevated Alk phos Plan Consult PT/OT Consider palliative care consult Continue abx tx w/ cefepime and zithromax, IVF Bowel rest, trialing clear liquids. advised pt to avoid carbonated beverages PT declines EGD, surg started on protonix and carafate - thank you Dr. Gregg Will request primary, Dr. Bernabe's, records on pt Consult palliative care Clinical Quality Measures DVT/VTE Risk/Contraindication: Risk Factor Score Per Nursin RFS Level Per Nursing on Admit: 4+=Very High ROS DHALIWAL DO 09/02/192028: Subjective Subjective/Events-last exam Small bowel obstruction, partial type seems to be resolving. Pneumonia seems to be adequately treated right now. Declines EGD, placed on PPI and Carafate. Dr. Bernabe's records- cardiology will be obtained for consultation purposes. PT and OT will be ordered. May need inpatient rehab. Review of Systems General: Fatigue Pulmonary: Dyspnea Gastrointestinal: Abdominal Pain Objective Exam General Appearance: No Apparent Distress, WD/WN, Chronically ill, Thin Respiratory: Lungs Clear, Crackles, Decreased Breath Sounds Cardiovascular: Regular Rate, Rhythm Assessment/Plan Assessment and Plan Assess & Plan/Chief Complaint Patient improved Poor prognosis PT/OT Home meds Diagnosis/Problems Diagnosis/Problems (1) Abdominal pain Status: Acute (2) Pneumonia Status: Acute (3) Lung cancer Status: Acute (4) Status post colostomy Status: Acute Supervisory-Addendum Brief Verification & Attestation Participated in pt care: history, MDM, physical Personally performed: exam, history, MDM, supervision of care Care discussed with: Medical Student Procedures: n/a Results interpretation: Verified all documentation Verification and Attestation of Medical Student E/M Service A medical student performed and documented this service in my presence. I reviewed and verified all information documented by the medical student and made modifications to such information, when appropriate. I personally performed the physical exam and medical decision making. Ros Dhaliwal, Sep 02, 2019,20:29 GILBERTO ESQUIVEL,MED STUDENT Sep 02, 2019 08:25 ROS DHALIWAL DO Sep 02, 2019 20:29
[2019-09-02] MEDS ORDERED: oxyCODONE/APAP 10/325MG (PERCOCET 10) TABLET PO PRN (08:45)
--- NOTE | 2019-09-02 11:40 | Physical Therapy Evaluation ---
PT Evaluation-General Medical Diagnosis Admission Date Sep 01, 2019 at 09:24 Medical Diagnosis: Nausea/vomiting Onset Date: Sep 01, 2019 Therapy Diagnosis Therapy Diagnosis: Debility Height/Weight Height (Feet): 6 Height (Inches): 0 Weight (Pounds): 147 Precautions Precautions/Isolations: Seizure, Fall Prevention, Standard Precautions Weight Bear Status Right Lower Extremity: Right Weight Bearing/Tolerated Left Lower Extremity: Left Weight Bearing/Tolerated Referral Physician: Carin Reason for Referral: Evaluation/Treatment Medical History Pertinent Medical History: Arthritis, GERD, [place], Smoking Additional Medical History Lung Cancer Stage IV, Opoid user caused overdose previously, Seizure disorder, GI bleed, Gangrene of foot, colostomy secondary to sever bowel obstruction with peritonitis. Current History Presented to ER with vomiting Social History Home: Apartment Current Living Status: Alone Entry Into Home: Level Entry PT Steps Into Home: 0 PT Steps Inside Home: 0 Was living in group home for several months following pelvic fracture, left NH last week of July. Prior Prior Level of Function SCALE: Activities may be completed with or without assistive devices. 8-Zuasiaahgr-ptghigq completes the activity by him/herself with no assistance from a helper. 5-Set-up or Clean-up Assistance-helper sets up or cleans up; patient completes activity. [place] assists only prior to or following the activity. 4-Supervision or Touching Assistance-helper provides verbal cues and/or touching/steadying and/or contact guard assistance as patient completes activity. Assistance may be provided throughout the activity or intermittently. 3-Partial/Moderate Assistance-helper does LESS THAN HALF the effort. [place] lifts, holds or supports trunk or limbs, but provides less than half the effort. 2-Substantial/Maximal Assistance-helper does MORE THAN HALF the effort. [place] lifts or holds trunk or limbs and provides more than half the effort. 2-Pkjzlzugq-wxthik does ALL the effort. Patient does none of the effort to complete the activity. Or, the assistance of 2 or more helpers is required for the patient to complete the activity. If activity was not attempted, code reason: 7-Patient Refused. 9-Not Applicable-not attempted and the patient did not perform the activity before the current illness, exacerbation or injury. 10-Not Attempted due to Environmental Limitations-(lack of equipment, weather restraints, etc.). 88-Not Attempted due to Medical Conditions or Safety Concerns. Bed Mobility: 6 Transfers (B,C,W/C): 6 Gait: 6 Indoor Mobility (Ambulation): Independent Prior Device Use: Cane PT Evaluation-Current Subjective Patient is agreeable to therapy at this time. Objective Patient Orientation: Person, Place, Time, Situation Attachments: IV ROM/Strength ROM Lower Extremities WFL BLE Strength Lower Extremities WFL BLE Integumentary/Posture Integumentary See nursing notes. Bowel Incontinence: No Bladder Incontinence: No Sensory Sensation Right Lower Extremit: Intact Sensation Left Lower Extremity: Intact Transfers Roll Left to Right (QC): 6 Sit to Lying (QC): 6 Lying to Sitting/Side of Bed(Q: 6 Sit to Stand (QC): 6 Chair/Las-uw-Xtyzz Xfer(QC): 6 Gait Does the Patient Walk?: Yes Mode of Locomotion: Walk Anticipated Mode of Locomotion: Walk Walk 10 feet (QC): 4 Walk 50 ft with 2 Turns(QC): 4 Walk 150 ft (QC): 4 Distance: 300' Gait Assistive Device: FWW Comments/Gait Description Patient initially used cane during ambulation because that is what he uses at home but switched to FWW. Patient ambulation was more fluid once switched to using the FWW. Wheelchair Training Does the Pt Use a Wheelchair?: No Balance Sitting Static: Normal Sitting Dynamic: Normal Standing Static: Fair Standing Dynamic: Fair Assessment/Needs Patient had a self corrected LOB during ambulation using cane. When switched to walker patient appeared more relaxed and had a more fluid stable gait. Rehab Potential: Good PT Senior Care Goals Senior Care Goals PT Senior Care Goals Time Frame: Sep 09, 2019 Roll Left & Right (QC): 6 Sit to Lying (QC): 6 Lying-Sitting on Side/Bed(QC): 6 Sit to Stand (QC): 6 Chair/Rkm-me-Egijt Xfer(QC): 6 Does the Patient Walk: Yes Walk 10 feet (QC): 6 Walk 50ft with 2 Turns (QC): 6 Walk 150 ft (QC): 6 Does the Pt use WC or Scooter?: No PT Plan Problem List Problem List: Activity Tolerance, Functional Strength, Safety, Balance, Gait, Transfer, Bed Mobility, ROM Treatment/Plan Treatment Plan: Continue Plan of Care Treatment Plan: Bed Mobility, Education, Functional Activity Cameron, Functional Strength, Gait, Safety, Therapeutic Exercise, Transfers Treatment Duration: Sep 09, 2019 Frequency: 6 times per week Estimated Hrs Per Day: .25 hour per day Patient and/or Family Agrees t: Yes Safety Risks/Education Patient Education: Gait Training, Transfer Techniques Teaching Recipient: Patient Teaching Methods: Discussion Response to Teaching: Reinforcement Needed Time/GCodes Time In: 1113 Time Out: 1125 Total Billed Treatment Time: 12 Total Billed Treatment 1 visit EVL (12 minutes) MICHAEL HENDERSON PT Sep 02, 2019 11:40
--- NOTE | 2019-09-02 11:58 | Occupational Therapy Eval ---
OT Evaluation-General/PLF Medical Diagnosis Admission Date Sep 01, 2019 at 09:24 Medical Diagnosis: Nausea/vomiting Onset Date: Sep 01, 2019 Therapy Diagnosis Therapy Diagnosis: Decreased ADL function Height/Weight Height (Feet): 6 Height (Inches): 0 Weight (Pounds): 147 Precautions Precautions/Isolations: Seizure, Fall Prevention, Standard Precautions Weight Bear Status Weight Bearing Restriction: Weight Bearing/Tolerated Referral Physician: Carin Referral Reason: Activity Tolerance, Self Care, Evaluation/Treatment, Strengthening/ROM Medical History Pertinent Medical History: Arthritis, GERD, [place], Smoking Additional Medical History lung Ca (recent dx), nausea/ vomiting, SOB, colostomy prior, possible small bowel obstruction, COPD, pneumonia, CAD, [place], seizure disorder, arthritis, oncologyat [facility] for lung ca. Current History Pt experienced nausea/ vomiting 08/31/19, states since then been feeling weak/ fatigued. Reviewed History: Yes Social History Home: Apartment Current Living Status: Alone Entry Into Home: Level Entry Steps Into Home: 0 Steps Inside Home: 0 ADL-Prior Level of Function SCALE: Activities may be completed with or without assistive devices. 6-Bubsajntfg-axzuqir completes the activity by him/herself with no assistance from a helper. 5-Set-up or Clean-up Assistance-helper sets up or cleans up; patient completes activity. [place] assists only prior to or following the activity. 4-Supervision or Touching Assistance-helper provides verbal cues and/or touching/steadying and/or contact guard assistance as patient completes activity. Assistance may be provided throughout the activity or intermittently. 3-Partial/Moderate Assistance-helper does LESS THAN HALF the effort. [place] l ifts, holds or supports trunk or limbs, but provides less than half the effort. 2-Substantial/Maximal Assistance-helper does MORE THAN HALF the effort. [place] lifts or holds trunk or limbs and provides more than half the effort. 0-Ccanafrtm-gekgtu does ALL the effort. Patient does none of the effort to complete the activity. Or, the assistance of 2 or more helpers is required for t he patient to complete the activity. If activity was not attempted, code reason: 7-Patient Refused. 9-Not Applicable-not attempted and the patient did not perform the activity before the current illness, exacerbation or injury. 10-Not Attempted due to Environmental Limitations-(lack of equipment, weather restraints, etc.). 88-Not Attempted due to Medical Conditions or Safety Concerns. ADL PLOF Comments Pt expresses IND with use of SPC. Self Care: Independent Functional Cognition: Independent Occupation: unemployed Drive Self: Yes OT Current Status Subjective Pt seen in bed, states no pain currently. Pt is educated on OT role/ therapy process. Pt agreeable to OOB activity, begins moving OOB without instruction. Mental Status/Objective Patient Orientation: Person, Situation Attachments: IV Current Glasses/Contacts: No Hearing Aids: No Dentures/Partials: No Hand Dominance: Right Upper Extremity ROM Decreased due to weakness. Upper Extremity Coordination WFL Upper Extremity Sensation WFL BUE Upper Extremity Strength Decreased, unable to maintain 90* ADL-Treatment On/Off Footwear (QC): 6 Other Treatments Pt seen in bed, shaking UE. Pt questioned if cold- pt states no, that Monday post-vomiting he began shaking and he has neuro disorder. Pt completes bed mob with IND, sit to stand with SBA. Utilizes SPC to move from bed to chair, demonstrates slight impulsiveness- IV pulling on pt as he moves from bed, pt continues on to recliner chair.States he has been feeling weak since Monday. Pt sits in chair with control. Pt lives at home alone, no assist required. Pt agrees to OT tx with purpose of safety, increased functional mob, and strength training. Pt left in recliner chair with call light in reach, all needs met, nursing and rehab nursing tech present. Education OT Patient Education: Correct positioning, Modified ADL techniques, Purpose of tx/functional activities, Safety issues, Transfer techniques Teaching Recipient: Patient Teaching Methods: Demonstration, Discussion Response to Teaching: Verbalize Understanding, Return Demonstration OT Wheel And Axle Inspector Goals Wheel And Axle Inspector Goals Time Frame: Sep 09, 2019 Eating (QC): 6 Oral Hygiene (QC): 6 Toileting Hygiene (QC): 6 Shower/Bathe Self (QC): 6 Upper Body Dressing (QC): 6 Lower Body Dressing (QC): 6 On/Off Footwear (QC): 6 Additional Goals: 1-Demonstrate ADL Tasks, 2-Verbalize Understanding, 3- ImproveStrength/Cameron 1=Demonstrate adherence to instructed precautions during ADL tasks. 2=Patient will verbalize/demonstrate understanding of assistive devices/modifications for ADL. 3=Patient will improve strength/tolerance for activity to enable patient to perform ADL's. OT Education/Plan Problem List/Assessment Assessment: Decreased Activ Tolerance, Decreased Safety Aware, Decreased UE Strength, Impaired I ADL's, Impaired Self-Care Skills Discharge Recommendations Plan/Recommendations: Continue POC Treatment Plan/Plan of Care Treatment,Training & Education: Yes Patient would benefit from OT for education, treatment and training to promote independence in ADL's, mobility, safety and/or upper extremity function for ADL's. Plan of Care: ADL Retraining, Functional Mobility, UE Funct Exercise/Act Treatment Duration: Sep 09, 2019 Frequency: 5 times per week Estimated Hrs Per Day: .25 hour per day Agreement: Yes Rehab Potential: Good Time/GCodes Start Time: 11:40 Stop Time: 11:48 Total Time Billed (hr/min): 8 Billed Treatment Time CRISTOBAL Chauhan (8) MIRTA SURESH OTR Sep 02, 2019 11:58
[2019-09-02 12:00] VITALS: BP 136/65
--- NOTE | 2019-09-02 12:05 | NUR ---
IRF Evaluation Order received to evaluate patient for the ARU. Chart review complete and it appears patient is ambulating (300ft, FWW) with supervision/CGA, as well as transferring and completing bed mobility with independence; therefore, patient does not require intensive therapies, at this time. Thank you for this referral.
--- NOTE | 2019-09-02 14:52 | NUR ---
Pt lives alone in [place] and his mother and sister live locally. He also has a friend who assists him with transportation. Previously he received Home Health Care from [facility] in [place].
--- NOTE | 2019-09-02 15:28 | Cardiology Progress Note ---
Cardiology SOAP Progress Note Subjective: Improved shortness of breath. Objective: I&O/Vital Signs 09/02/19 09/02/19 09/02/19 09/02/19 04:21 07:12 08:00 11:03 Temp 37.4 37.4 Pulse 86 99 Resp 18 22 B/P (MAP) 147/87 (107) 149/80 (103) Pulse Ox 98 92 98 94 O2 Delivery Room Air Room Air Room Air Room Air 09/02/19 09/02/19 12:00 15:09 Temp 36.5 Pulse 94 Resp 16 B/P (MAP) 136/65 (88) Pulse Ox 100 93 O2 Delivery Room Air Room Air 09/02/19 00:00 Intake Total 1210 ml Output Total 1725 ml Balance -515 ml Weight (Pounds): 147 Weight (Calculated Kilograms): 66.523363 Constitutional: appears stated age, AAO x 3; No apparent distress; other (sick- looking gentleman.) Respiratory: chest is bilaterally symmetric, lungs clear to auscultation Cardiovascular: regular rate-rhythm, S1 and S2 Gastrointestional: soft, audible bowel sounds; No spleenomegaly Extremities: normal range of motion, non-tender, normal inspection; No clubbing, No cyanosis; no lower extremity edema bilateral; No significant edema Neurologic/Psychiatric: no motor/sensory deficits, alert, normal mood/affect, oriented x 3, power is 5/5 both on sides Skin: normal color, warm/dry; No rash, No ulcerations Results/Procedures: Labs Laboratory Tests 09/02/19 05:20: White Blood Count 14.1H, Red Blood Count 3.41L, Hemoglobin 10.0#L, Hematocrit 29L, Mean Corpuscular Volume 86, Mean Corpuscular Hemoglobin 29, Mean Corpuscular Hemoglobin Concent 34, Red Cell Distribution Width 14.3, Platelet Count 288, Mean Platelet Volume 8.3, Neutrophils (%) (Auto) 86H, Lymphocytes (%) (Auto) 8L, Monocytes (%) (Auto) 6, Eosinophils (%) (Auto) 0, Basophils (%) (Auto) 0, Neutrophils # (Auto) 12.2H, Lymphocytes # (Auto) 1.1, Monocytes # (Auto) 0.8, Eosinophils # (Auto) 0.0, Basophils # (Auto) 0.0, Sodium Level 132L, Potassium Level 3.9, Chloride Level 104, Carbon Dioxide Level 20L, Anion Gap 8, Blood Urea Nitrogen 6L, Creatinine 0.73, Estimat Glomerular Filtration Rate > 60, BUN/Creatinine Ratio 8, Glucose Level 105, Calcium Level 8.1L, Phosphorus Level 3.3, Magnesium Level 1.4L A/P: Assessment/Dx: Nausea, vomiting, Stage IV lung cancer, Active smoking, History of colostomy, bowel obstruction, History of opioid overuse, CAD, PCI in the past Plan: Nausea, vomiting, defer to the primary team and general surgery. Stage IV lung cancer, oncology following. Active smoking, strongly suggested to quit. History of colostomy, bowel obstruction, History of opioid overuse, monitor clinically. CAD, PCI in the past, not in any antiplatelet therapy. We need to get old records from Dr. Bernabe's office. Thank you for your consultation. Please call me if you have any questions. Donta Rmoano MD, FACP, FACC, FSCAI, FHRS, CCDS Interventional Cardiology Cardiac Electrophysiology Vascular Medicine and Endovascular Interventions Focused Exam Lactate Level 09/01/19 06:20: Lactic Acid Level 2.91*H 09/01/19 09:30: Lactic Acid Level 1.69 Marci ROMANO MD Sep 02, 2019 15:28
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
[2019-09-02] MEDS: ENOXAPARIN 40 MG/0.4 ML (LOVENOX) SYR SC SCH (18:20)
[2019-09-02] MEDS: NS IV 1000 ML 1,000 ML IV SCH ×2 (18:23→19:38)
[2019-09-02 19:30] VITALS: BP 126/66
[2019-09-02] MEDS: MELATONIN 3 MG TABLET PO SCH (19:34)
[2019-09-02] MEDS: LORazepam 0.5 MG (ATIVAN) TABLET PO PRN (19:35)
[2019-09-03] VITALS (7 sets, daily range): BP systolic 99–139; BP diastolic 55–78
[2019-09-03] MEDS: methylPREDNISolone 40 MG/ML (Solu-MEDROL) VIAL IV SCH ×2 (00:23→05:22)
[2019-09-03] MEDS: RT-ALBUTEROL/IPRATROPIUM 3 ML (DUONEB) VIAL INH SCH ×6 (02:09→21:14)
[2019-09-03] MEDS ORDERED: WATER (STERILE) FOR INJECTION 10 ML ONE (05:15)
[2019-09-03] MEDS ORDERED: CEFEPIME 1 GM (MAXIPIME) VIAL ONE (05:15)
[2019-09-03] MEDS: NS IV 1000 ML 1,000 ML IV SCH ×2 (05:22→22:53)
[2019-09-03] MEDS: CEFEPIME INJECTION 1,000 MG in WATER (STERILE) FOR INJECTION 10 ML IV SCH ×6 (05:23→22:53)
[2019-09-03] MEDS: SUCRALFATE 1 GM (CARAFATE) TAB PO SCH ×4 (05:28→20:30)
[2019-09-03 06:28] LABS: BASOPHILS % (AUTO) 0 % (0-10); EOSINOPHILS % (AUTO) 0 % (0-10); HEMATOCRIT 28 % (40-54); HEMOGLOBIN 9.3 G/DL (13.3-17.7); LYMPHOCYTES % (AUTO) 10 % (12-44); MEAN CORPUSCULAR HEMOGLOBIN 29 PG (25-34); MEAN CORPUSCULAR HGB CONC 33 G/DL (32-36); MEAN CORPUSCULAR VOLUME 88 FL (80-99); MEAN PLATELET VOLUME 8.9 FL (7.4-10.4); MONOCYTES # (AUTO) 0.9 X 10^3 (0.0-1.0); MONOCYTES % (AUTO) 9 % (0-12); NEUTROPHILS # (AUTO) 8.2 X 10^3 (1.8-7.8); NEUTROPHILS % (AUTO) 81 % (42-75); PLATELET COUNT 286 10^3/uL (130-400); RED CELL DISTRIBUTION WIDTH 14.3 % (10.0-14.5); WHITE BLOOD COUNT 10.1 10^3/uL (4.3-11.0)
[2019-09-03 06:52] LABS: ALANINE AMINOTRANSFERASE 9 U/L (0-55); ALBUMIN 3.2 GM/DL (3.2-4.5); ALKALINE PHOSPHATASE 125 U/L (40-136); BILIRUBIN,TOTAL 0.1 MG/DL (0.1-1.0); BUN/CREATININE RATIO 6; CALCIUM 7.9 MG/DL (8.5-10.1); CARBON DIOXIDE 19 MMOL/L (21-32); CHLORIDE 110 MMOL/L (98-107); CREATININE SERUM 0.81 MG/DL (0.60-1.30); GFR ESTIMATED > 60; GLUCOSE 111 MG/DL (70-105); MAGNESIUM 1.4 MG/DL (1.6-2.4); POTASSIUM 3.4 MMOL/L (3.6-5.0); SODIUM 137 MMOL/L (135-145); TOTAL PROTEIN 5.6 GM/DL (6.4-8.2)
[2019-09-03] MEDS: meTOprolol TARTRATE 25 MG (LOPRESSOR) TABLET PO SCH (08:28)
[2019-09-03] MEDS: GABAPENTIN 300 MG (NEURONTIN) CAP PO SCH ×3 (08:28→20:30)
[2019-09-03] MEDS: PHENYTOIN 100 MG (DILANTIN) CAP PO SCH ×4 (08:28→20:30)
[2019-09-03] MEDS: PANTOPRAZOLE 40 MG (PROTONIX) TAB PO SCH (08:28)
[2019-09-03] MEDS: MIRTAZAPINE 15 MG (REMERON) TAB PO SCH (08:28)
[2019-09-03] MEDS: AZITHROMYCIN 250 MG TAB (ZITHROMAX) PO SCH (08:28)
[2019-09-03] MEDS: OLANZapine 5 MG (ZyPREXA) TAB PO SCH ×2 (08:28→20:30)
--- NOTE | 2019-09-03 08:32 | Pulmonary Progress Note ---
Subjective Time Seen by a Provider: 08:28 Subjective/Events-last exam No complications noted. Sepsis Event Evaluation Height, Weight, BMI Height: 6'0" Weight: 147lbs. oz. 66.480327fr; 18.05 BMI Method:Stated Focused Exam Lactate Level 09/01/19 06:20: Lactic Acid Level 2.91*H 09/01/19 09:30: Lactic Acid Level 1.69 Exam Exam Vital Signs Date Time Temp Pulse Resp B/P (MAP) Pulse Ox O2 Delivery O2 Flow Rate FiO2 09/03/19 08:20 36.0 100 20 122/66 (84) 95 Room Air 09/03/19 06:50 92 Room Air 09/03/19 04:27 36.9 92 16 109/55 (73) 95 Room Air 09/03/19 02:09 92 Room Air 09/03/19 00:12 36.2 97 16 99/58 (72) 94 Room Air 09/02/19 21:47 91 Room Air 09/02/19 20:30 91 Room Air 09/02/19 19:30 36.6 97 16 126/66 (86) 93 Room Air 09/02/19 18:25 94 Room Air 09/02/19 15:09 93 Room Air 09/02/19 12:00 36.5 94 16 136/65 (88) 100 Room Air 09/02/19 11:03 94 Room Air 09/02/19 09:00 Room Air I & O 09/03/19 07:00 Intake Total 1770 ml Output Total 2500 ml Balance -730 ml Height & Weight Height: 6'0" Weight: 147lbs. oz. 66.943054zw; 18.05 BMI Method:Stated General Appearance: No Apparent Distress, WD/WN, Chronically ill, Thin HEENT: Moist Mucous Membranes, Other (white plaque on tongue ) Neck: Full Range of Motion, Normal Inspection, Non Tender Respiratory: Lungs Clear, Crackles, Decreased Breath Sounds Cardiovascular: Regular Rate, Rhythm Capillary Refill: Less Than 3 Seconds Peripheral Pulses: 2+ Carotid (R), 2+ Carotid (L); 1+ Radial Pulses (R), 1+ Radial Pulses (L) Gastrointestinal: normal bowel sounds, soft, no pulsatile mass, tenderness (epigastric area), other (colostomy appears to be functioning left lower quadrant) Extremity: No Calf Tenderness, No Pedal Edema Neurologic/Psychiatric: Alert, Oriented x3, Depressed Affect (flat ) Skin: Normal Color, Warm/Dry Lymphatic: No Adenopathy Results Lab Laboratory Tests 09/02/19 05:20 09/03/19 05:30 Assessment/Plan Assessment/Plan Pneumonia -Singh cultuers pending -Cefepime and azithromycin currently 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
--- NOTE | 2019-09-03 08:44 | Diagnostic Imaging Report ---
INDICATION: Dyspnea. COMPARISON: 09/02/2019 FINDINGS: Single frontal radiograph view of the chest was obtained and again demonstrates mass within the right apex. There are new patchy alveolar opacities within the lateral left lung base. No large effusion or pneumothorax is seen on either side. Cardiac silhouette and pulmonary vasculature are within normal limits. Left internal jugular Port-A-Cath is again noted with tip in the SVC. Osseous structures show no new acute abnormalities. IMPRESSION: 1. Probable new patchy left basilar atelectasis. 2. Redemonstration right apical mass. Dictated by: Dictated on workstation # [id number]
[2019-09-03] MEDS ORDERED: KCL 20 MEQ TAB (K-DUR) PO NR (09:07)
--- NOTE | 2019-09-03 09:08 | Occupational Ther Daily Note ---
OT Current Status-Daily Note Subjective Pt laying in bed at start of session, min encouragement to participate in ADL tx. Pt did not report any pain, stating he feels pretty good at this time. Mental Status/Objective Attachments: IV ADL-Treatment Therapy Code Descriptions/Definitions Functional [place] Measure: 0=Not Assessed/NA 4=Minimal Assistance 1=Total Assistance 5=Supervision or Setup 2=Maximal Assistance 6=Modified [place] 3=Moderate Assistance 7=Complete IndependenceSCALE: Activities may be completed with or without assistive devices. 8-Rfpuzkitbi-uxxspye completes the activity by him/herself with no assistance from a helper. 5-Set-up or Clean-up Assistance-helper sets up or cleans up; patient completes activity. [place] assists only prior to or following the activity. 4-Supervision or Touching Assistance-helper provides verbal cues and/or touching/steadying and/or contact guard assistance as patient completes activity. Assistance may be provided throughout the activity or intermittently. 3-Partial/Moderate Assistance-helper does LESS THAN HALF the effort. [place] lifts, holds or supports trunk or limbs, but provides less than half the effort. 2-Substantial/Maximal Assistance-helper does MORE THAN HALF the effort. [place] lifts or holds trunk or limbs and provides more than half the effort. 0-Rtodxtcca-ghhyjf does ALL the effort. Patient does none of the effort to complete the activity. Or, the assistance of 2 or more helpers is required for the patient to complete the activity. If activity was not attempted, code reason: 7-Patient Refused. 9-Not Applicable-not attempted and the patient did not perform the activity before the current illness, exacerbation or injury. 10-Not Attempted due to Environmental Limitations-(lack of equipment, weather restraints, etc.). 88-Not Attempted due to Medical Conditions or Safety Concerns. Oral Hygiene (QC): 5 (Pt declined using tooth brush/tooth paste. He agreed to using oral swab, completing task with set up/clean up.) Shower/Bathe Self (QC): 7 Toileting Hygiene (QC): 7 Toilet Transfer (QC): 7 Other Treatment Pt laying in bed, denied OOB activities at this time. He declined sponge bath and declined face washing stating he just took a shower a couple of days ago. OT educated pt on benefits and purpose of OT. He declined teeth brushing, reluctantly agreeing to use an oral swab. OT gathered supplies for ADLs. He was able to use the oral swab with set up at bed level. OT then handed pt a hair brush and he was able to brush his hair without assistance. Post OT session, pt laying in bed, call light in reach and all needs met. Education OT Patient Education: Correct positioning, Energy conservation, Modified ADL techniques, Progress toward Goal/Update tx plan, Purpose of tx/functional activities Teaching Recipient: Patient Teaching Methods: Discussion Response to Teaching: Reinforcement Needed OT Sheet Taker Goals Sheet Taker Goals Time Frame: Sep 09, 2019 Eating (QC): 6 Oral Hygiene (QC): 6 Toileting Hygiene (QC): 6 Shower/Bathe Self (QC): 6 Upper Body Dressing (QC): 6 Lower Body Dressing (QC): 6 On/Off Footwear (QC): 6 Additional Goals: 1-Demonstrate ADL Tasks, 2-Verbalize Understanding, 3- ImproveStrength/Cameron 1=Demonstrate adherence to instructed precautions during ADL tasks. 2=Patient will verbalize/demonstrate understanding of assistive devices/modifications for ADL. 3=Patient will improve strength/tolerance for activity to enable patient to perform ADL's. OT Education/Plan Problem List/Assessment Assessment: Decreased Activ Tolerance, Decreased UE Strength, Impaired I ADL's, Impaired Self-Care Skills Discharge Recommendations Plan/Recommendations: Continue POC Treatment Plan/Plan of Care Patient would benefit from OT for education, treatment and training to promote independence in ADL's, mobility, safety and/or upper extremity function for ADL's. Plan of Care: ADL Retraining, Functional Mobility, UE Funct Exercise/Act Treatment Duration: Sep 09, 2019 Frequency: 5 times per week Estimated Hrs Per Day: .25 hour per day Agreement: Yes Rehab Potential: Good Time/GCodes Start Time: 08:50 Stop Time: 08:59 Total Time Billed (hr/min): 9 Billed Treatment Time 1, ADL ARLETTE PRADHAN OT Sep 03, 2019 09:08
[2019-09-03] MEDS: MAGNESIUM 1 GM/100 ML IVPB 100 ML IV SCH ×3 (09:13→12:19)
--- NOTE | 2019-09-03 10:13 | Progress Note - Hospitalist ---
GILBERTO ESQUIVEL,MED STUDENT 09/03/19 1013: Subjective HPI/CC On Admission Date Seen by Provider: Sep 03, 2019 Time Seen by Provider: 08:46 Chief complaint: Pneumonia with possible small bowel obstruction History of present illness: This is a 58-year-old white male clinic patient of Dr. Mullen in [place] in Dr. Ortez at [facility] who treats his lung cancer who presented to [place] [facility] shortness of breath pain and nausea and vomiting. 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 He continues to smoke. Abdominal pain was assessed with CT scan at [place] [facility] showing possible small bowel obstruction surgery Dr. Gregg was consulted. Antibiotics of cefepime and Zithromax were initiated along with IV fluids and bowel rest. Subjective/Events-last exam Pt states he is feeling better today, appears in better spirits Nausea, stomach pain resolved. Pt consumed 8 snack cakes a family member brought him overnight without issues Otherwise tolerating liquid diet Participating in PT/OT No new complaints at this time Focused Exam Lactate Level 09/01/19 06:20: Lactic Acid Level 2.91*H 09/01/19 09:30: Lactic Acid Level 1.69 Objective Exam Vital Signs Vital Signs Date Time Temp Pulse Resp B/P (MAP) Pulse Ox O2 Delivery O2 Flow Rate FiO2 09/03/19 09:58 90 Room Air 09/03/19 08:20 36.0 100 20 122/66 (84) Capillary Refill : Less Than 3 SecondsLess Than 3 Seconds General Appearance: No Apparent Distress, Chronically ill, Thin HEENT: Pharynx Normal, Moist Mucous Membranes Respiratory: Chest Non Tender, Normal Breath Sounds, No Accessory Muscle Use, No Respiratory Distress, Crackles (decreased ) Cardiovascular: No Edema, No Gallop, No Murmur, Normal Peripheral Pulses, Tachycardia Gastrointestinal: Non Tender, Soft Extremity: No Calf Tenderness, No Pedal Edema Neurologic/Psychiatric: Alert, Oriented x3 Skin: Normal Color, Warm/Dry Results/Procedures Lab Laboratory Tests 09/03/19 05:30 Patient resulted labs reviewed. Assessment/Plan Assessment and Plan Assess & Plan/Chief Complaint Assessment PNA Lung cancer stage IV Hypokalemia Hypomagnesemia Nausea, vomiting possible hematemesis, gastritis Respiratory alkalosis Elevated Alk phos Plan Replace K, Mg Continue PT/OT Continue abx tx w/ cefepime and zithromax, IVF PT has advanced diet to solids but has not experienced a bowel movement since colostomy blow out two days ago. Will continue liquid diet until stooling PT declines EGD, surg started on protonix and carafate - thank you Dr. Gregg Will request primary, Dr. Bernabe's, records on pt Considering d/c if pt condition continues to improve Clinical Quality Measures DVT/VTE Risk/Contraindication: Risk Factor Score Per Nursin RFS Level Per Nursing on Admit: 4+=Very High ROS DHALIWAL DO 09/03/191921: Subjective Subjective/Events-last exam Pt improved Ate some oatmeal cookies his mother brought in Potassium 3.4, magnesium 1.4 being supplemented Cefepime and Zithromax being maintained for pneumonia Dr. Romano cardiology on board for CAD Review of Systems General: Fatigue Pulmonary: Dyspnea, Cough Gastrointestinal: Abdominal Pain Objective Exam General Appearance: No Apparent Distress, WD/WN, Cachetic Respiratory: No Accessory Muscle Use, No Respiratory Distress, Crackles (decreased ) Cardiovascular: Regular Rate, Rhythm Assessment/Plan Assessment and Plan Assess & Plan/Chief Complaint DC planning Monitor closely Diagnosis/Problems Diagnosis/Problems (1) Pneumonia Status: Acute (2) Lung cancer Status: Acute (3) Abdominal pain Status: Acute (4) Status post colostomy Status: Acute Supervisory-Addendum Brief Verification & Attestation Participated in pt care: history, MDM, physical Personally performed: exam, history, MDM, supervision of care Care discussed with: Medical Student Procedures: n/a Results interpretation: Verified all documentation Verification and Attestation of Medical Student E/M Service A medical student performed and documented this service in my presence. I reviewed and verified all information documented by the medical student and made modifications to such information, when appropriate. I personally performed the physical exam and medical decision making. Ros Dhaliwal, Sep 03, 2019,19:22 GILBERTO ESQUIVEL,MED STUDENT Sep 03, 2019 10:13 ROS DHALIWAL DO Sep 03, 2019 19:22
--- NOTE | 2019-09-03 11:11 | Physical Therapy Daily Note ---
PT Daily Note-Current Subjective Patient states he is tired and wants to nap but is agreeable to therapy at this time. Mental Status Patient Orientation: Normal For Age Attachments: IV Transfers SCALE: Activities may be completed with or without assistive devices. 0-Mbadkxezat-vpeodze completes the activity by him/herself with no assistance from a helper. 5-Set-up or Clean-up Assistance-helper sets up or cleans up; patient completes activity. [place] assists only prior to or following the activity. 4-Supervision or Touching Assistance-helper provides verbal cues and/or touching/steadying and/or contact guard assistance as patient completes activity. Assistance may be provided throughout the activity or intermittently. 3-Partial/Moderate Assistance-helper does LESS THAN HALF the effort. [place] lifts, holds or supports trunk or limbs, but provides less than half the effort. 2-Substantial/Maximal Assistance-helper does MORE THAN HALF the effort. [place] lifts or holds trunk or limbs and provides more than half the effort. 1-Ndcmurzup-qwalvp does ALL the effort. Patient does none of the effort to complete the activity. Or, the assistance of 2 or more helpers is required for the patient to complete the activity. If activity was not attempted, code reason: 7-Patient Refused. 9-Not Applicable-not attempted and the patient did not perform the activity before the current illness, exacerbation or injury. 10-Not Attempted due to Environmental Limitations-(lack of equipment, weather restraints, etc.). 88-Not Attempted due to Medical Conditions or Safety Concerns. Roll Left & Right (QC): 6 Sit to Lying (QC): 6 Lying to Sitting/Side of Bed(Q: 6 Sit to Stand (QC): 4 CGA for safety. Weight Bearing Right Lower Extremity: Right Weight Bearing/Tolerated Left Lower Extremity: Left Weight Bearing/Tolerated Gait Training Does the Patient Walk?: Yes Distance: 350' Walk 10 feet (QC): 4 Walk 50 ft with 2 Turns(QC): 4 Walk 150 ft (QC): 4 Gait Persons Needed: 1 Gait Assistive Device: FWW CGA for safety. Treatments Ambulation. Bed mobility. Assessment Patient is steady during ambulation. Patient is unable to talk and walk at the same time, anytime he talked he stopped walking. PT Fdc Goals Ultrasound Technologist Goals PT Ultrasound Technologist Goals Time Frame: Sep 09, 2019 Roll Left & Right (QC): 6 Sit to Lying (QC): 6 Lying-Sitting on Side/Bed(QC): 6 Sit to Stand (QC): 6 Chair/Fnx-ky-Raofl Xfer(QC): 6 Does the Patient Walk: Yes Walk 10 feet (QC): 6 Walk 50ft with 2 Turns (QC): 6 Walk 150 ft (QC): 6 Does the Pt use WC or Scooter?: No PT Plan Problem List Problem List: Activity Tolerance, Functional Strength, Safety, Balance, Gait, Transfer, Bed Mobility, ROM Treatment/Plan Treatment Plan: Continue Plan of Care Treatment Plan: Bed Mobility, Education, Functional Activity [place], Functional Strength, Gait, Safety, Therapeutic Exercise, Transfers Treatment Duration: Sep 09, 2019 Frequency: 6 times per week Estimated Hrs Per Day: .25 hour per day Patient and/or Family Agrees t: Yes Safety Risks/Education Patient Education: Gait Training, Transfer Techniques Teaching Recipient: Patient Teaching Methods: Discussion Response to Teaching: Reinforcement Needed Time/GCodes Time In: 1032 Time Out: 1043 Total Billed Treatment Time: 11 Total Billed Treatment 1 visit FA (11 minutes) MICHAEL HENDERSON PT Sep 03, 2019 11:11
--- NOTE | 2019-09-03 12:19 | NUR ---
"RD ASSESSMENT PMHx: COPD; CAD; [place]; GERD; lung CA PT INTERACTION: Pt was awake and pleasant during nutrition assessment. Pt states current appetite is pretty good and has been for some time. Note pt avg PO intake of 40% x2d, per chart review. Pt states following a regular diet at home and sometimes has issues with chewing/swallowing food. Pt states no recent issues with n/v/c/d at this time. Pt states unsure of any recent wt changes. Note recent 10# wt gain x6mon, per chart review. ABNORMAL NUTRITION-RELATED LAB VALUES LOW: K 3.4; BUN 5; Ca 7.9; Mg 1.4; Pro 5.6 HIGH: Bl 110; glu 111 Est. kcal needs: 7800-8296 kcal | 25-30 kcal/kg Est. Pro needs: 51-71 g Pro | 0.8-1.0 g Pro/kg PES STATEMENT: Inadequate oral intake (NI-2.1) related to loss of appetite as evidenced by pt interview | avg PO intake 40% x2d INTERVENTION: Note pt had diet advanced to Regular diet, per chart review. Pt may benefit from nutrition supplementation if PO intake remains low. Will continue to follow and reassess as pt needs and status change. MONITOR/EVALUATE: PO Intake; Plan of Care; Hydration Status; Weight Status; Lab Values Amanda Galeana, , RD, LD"
--- NOTE | 2019-09-03 14:51 | Cardiology Progress Note ---
Cardiology SOAP Progress Note Subjective: No cardiac complaints. Objective: I&O/Vital Signs 09/03/19 09/03/19 09/03/19 09/03/19 04:27 06:50 08:20 08:33 Temp 36.9 36.0 Pulse 92 100 Resp 16 20 B/P (MAP) 109/55 (73) 122/66 (84) Pulse Ox 95 92 95 O2 Delivery Room Air Room Air Room Air Room Air 09/03/19 09/03/19 09/03/19 09:58 11:48 13:57 Temp 36.9 Pulse 89 Resp 20 B/P (MAP) 127/73 (91) Pulse Ox 90 96 90 O2 Delivery Room Air Room Air Room Air 09/03/19 00:00 Intake Total 1400 ml Output Total 2000 ml Balance -600 ml Weight (Pounds): 147 Weight (Calculated Kilograms): [id number] Constitutional: appears stated age, AAO x 3; No apparent distress; other (sick- looking gentleman.) Respiratory: chest is bilaterally symmetric, lungs clear to auscultation Cardiovascular: regular rate-rhythm, S1 and S2 Gastrointestional: soft, audible bowel sounds; No spleenomegaly Extremities: normal range of motion, non-tender, normal inspection; No clubbing, No cyanosis; no lower extremity edema bilateral; No significant edema Neurologic/Psychiatric: no motor/sensory deficits, alert, normal mood/affect, oriented x 3, power is 5/5 both on sides Skin: normal color, warm/dry; No rash, No ulcerations Results/Procedures: Labs Laboratory Tests 09/03/19 05:30: White Blood Count 10.1, Red Blood Count 3.17L, Hemoglobin 9.3L, Hematocrit 28L, Mean Corpuscular Volume 88, Mean Corpuscular Hemoglobin 29, Mean Corpuscular Hemoglobin Concent 33, Red Cell Distribution Width 14.3, Platelet Count 286, Mean Platelet Volume 8.9, Neutrophils (%) (Auto) 81H, Lymphocytes (%) (Auto) 10L , Monocytes (%) (Auto) 9, Eosinophils (%) (Auto) 0, Basophils (%) (Auto) 0, Neutrophils # (Auto) 8.2H, Lymphocytes # (Auto) 1.0, Monocytes # (Auto) 0.9, Eosinophils # (Auto) 0.0, Basophils # (Auto) 0.0, Sodium Level 137, Potassium Level 3.4L, Chloride Level 110H, Carbon Dioxide Level 19L, Anion Gap 8, Blood Urea Nitrogen 5L, Creatinine 0.81, Estimat Glomerular Filtration Rate > 60, BUN/Creatinine Ratio 6, Glucose Level 111H, Calcium Level 7.9L, Corrected Calcium 8.5, Phosphorus Level 3.0, Magnesium Level 1.4L, Total Bilirubin 0.1, Aspartate Amino Transf (AST/SGOT) 13, Alanine Aminotransferase (ALT/SGPT) 9, Alk sarah Phosphatase 125, Total Protein 5.6L, Albumin 3.2 Microbiology 09/01/19 MRSA Screen - Final, Complete MRSA not isolated 09/01/19 Blood Culture - Preliminary, Resulted No growth A/P: Assessment/Dx: Nausea, vomiting, Stage IV lung cancer, Active smoking, History of colostomy, bowel obstruction, History of opioid overuse, CAD, PCI in the past Plan: Nausea, vomiting, defer to the primary team and general surgery. Stage IV lung cancer, oncology following. Active smoking, strongly suggested to quit. History of colostomy, bowel obstruction, History of opioid overuse, monitor clinically. CAD, PCI in the past, not in any antiplatelet therapy. Start low-dose aspirin and Lipitor 10 mg daily.. Thank you for your consultation. Please call me if you have any questions. Donta Romano MD, FACP, FACC, FSCAI, FHRS, CCDS Interventional Cardiology Cardiac Electrophysiology Vascular Medicine and Endovascular Interventions Focused Exam Lactate Level 09/01/19 06:20: Lactic Acid Level 2.91*H 09/01/19 09:30: Lactic Acid Level 1.69 Marci ROMANO MD Sep 03, 2019 14:51
[2019-09-03] MEDS: ENOXAPARIN 40 MG/0.4 ML (LOVENOX) SYR SC SCH (16:45)
[2019-09-03] MEDS: MELATONIN 3 MG TABLET PO SCH (20:30)
[2019-09-03] MEDS: ONDANSETRON 4 MG/2 ML (SDV) Z0FRAN IVP PRN (20:31)
[2019-09-04] VITALS: BP 124/67
[2019-09-04] MEDS: RT-ALBUTEROL/IPRATROPIUM 3 ML (DUONEB) VIAL INH SCH ×3 (02:43→10:41)
[2019-09-04 04:00] VITALS: BP 121/70
[2019-09-04] MEDS: CEFEPIME INJECTION 1,000 MG in WATER (STERILE) FOR INJECTION 10 ML IV SCH (05:25)
[2019-09-04] MEDS: SUCRALFATE 1 GM (CARAFATE) TAB PO SCH ×2 (05:25→12:07)
[2019-09-04 05:33] LABS: BASOPHILS % (AUTO) 0 % (0-10); EOSINOPHILS # (AUTO) 0.2 10^3/uL (0.0-0.3); EOSINOPHILS % (AUTO) 2 % (0-10); HEMATOCRIT 29 % (40-54); HEMOGLOBIN 9.9 G/DL (13.3-17.7); LYMPHOCYTES # (AUTO) 1.7 X 10^3 (1.0-4.0); LYMPHOCYTES % (AUTO) 18 % (12-44); MEAN CORPUSCULAR HEMOGLOBIN 30 PG (25-34); MEAN CORPUSCULAR HGB CONC 34 G/DL (32-36); MEAN CORPUSCULAR VOLUME 89 FL (80-99); MEAN PLATELET VOLUME 8.2 FL (7.4-10.4); MONOCYTES # (AUTO) 1.1 X 10^3 (0.0-1.0); MONOCYTES % (AUTO) 12 % (0-12); NEUTROPHILS # (AUTO) 6.5 X 10^3 (1.8-7.8); NEUTROPHILS % (AUTO) 69 % (42-75); PLATELET COUNT 304 10^3/uL (130-400); RED CELL DISTRIBUTION WIDTH 14.9 % (10.0-14.5); WHITE BLOOD COUNT 9.5 10^3/uL (4.3-11.0)
[2019-09-04 05:50] LABS: BUN/CREATININE RATIO 7; CALCIUM 7.5 MG/DL (8.5-10.1); CARBON DIOXIDE 24 MMOL/L (21-32); CHLORIDE 111 MMOL/L (98-107); CREATININE SERUM 0.73 MG/DL (0.60-1.30); GFR ESTIMATED > 60; GLUCOSE 84 MG/DL (70-105); MAGNESIUM 1.7 MG/DL (1.6-2.4); PHOSPHORUS 2.5 MG/DL (2.3-4.7); POTASSIUM 3.7 MMOL/L (3.6-5.0); SODIUM 141 MMOL/L (135-145)
[2019-09-04] MEDS ORDERED: predniSONE 20 MG TAB PO SCH (07:00)
--- NOTE | 2019-09-04 07:17 | Pulmonary Progress Note ---
Subjective Time Seen by a Provider: 07:10 Subjective/Events-last exam Pt appears to be doing better. Sepsis Event Evaluation Height, Weight, BMI Height: 6'0" Weight: 147lbs. oz. 66.647877pw; 18.05 BMI Method:Stated Focused Exam Lactate Level 09/01/19 09:30: Lactic Acid Level 1.69 Exam Exam Vital Signs Date Time Temp Pulse Resp B/P (MAP) Pulse Ox O2 Delivery O2 Flow Rate FiO2 09/04/19 04:00 37.0 92 18 121/70 (87) 92 Room Air 09/04/19 00:00 36.4 95 16 124/67 (86) 94 Room Air 09/03/19 21:14 92 Room Air 09/03/19 20:00 Room Air 09/03/19 19:37 36.6 94 18 139/74 (95) 96 Room Air 09/03/19 18:17 92 Room Air 09/03/19 16:25 36.4 90 16 136/78 (97) 97 Room Air 09/03/19 13:57 90 Room Air 09/03/19 11:48 36.9 89 20 127/73 (91) 96 Room Air 09/03/19 09:58 90 Room Air 09/03/19 08:33 Room Air 09/03/19 08:20 36.0 100 20 122/66 (84) 95 Room Air I & O 09/04/19 07:00 Intake Total 2600 ml Output Total 3200 ml Balance -600 ml Height & Weight Height: 6'0" Weight: 147lbs. oz. 66.979273oi; 18.05 BMI Method:Stated General Appearance: No Apparent Distress, WD/WN, Chronically ill, Thin HEENT: Moist Mucous Membranes, Other (white plaque on tongue ) Neck: Full Range of Motion, Normal Inspection, Non Tender Respiratory: Lungs Clear, Crackles, Decreased Breath Sounds Cardiovascular: Regular Rate, Rhythm Capillary Refill: Less Than 3 Seconds Peripheral Pulses: 2+ Carotid (R), 2+ Carotid (L); 1+ Radial Pulses (R), 1+ Radial Pulses (L) Gastrointestinal: normal bowel sounds, soft, no pulsatile mass, tenderness (epigastric area), other (colostomy appears to be functioning left lower quadrant) Extremity: No Calf Tenderness, No Pedal Edema Neurologic/Psychiatric: Alert, Oriented x3, Depressed Affect (flat ) Skin: Normal Color, Warm/Dry Lymphatic: No Adenopathy Results Lab Laboratory Tests 09/03/19 05:30 09/04/19 05:20 Assessment/Plan Assessment/Plan Pneumonia -Singh cultuers pending -Cefepime-- change to omnicef and and continue azithromycin 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
[2019-09-04 07:55] VITALS: BP 125/75
[2019-09-04] MEDS ORDERED: RT-ADVAIR HFA 115/21 MCG PER PUFF IH SCH (08:00)
--- NOTE | 2019-09-04 08:00 | Diagnostic Imaging Report ---
EXAMINATION: Chest 1 view INDICATION: Shortness of breath. COMPARISON: 09/03/2019 FINDINGS: Mass in the right upper lobe is unchanged. Left base nodule is also unchanged. Port catheter is present. There is mild interstitial edema. No pneumothorax. No pleural effusion. Heart size is normal. IMPRESSION: 1. Mild interstitial edema with unchanged right upper lobe mass. Dictated by: Dictated on workstation # [id number]
[2019-09-04] MEDS: PHENYTOIN 100 MG (DILANTIN) CAP PO SCH (09:37)
[2019-09-04] MEDS: GABAPENTIN 300 MG (NEURONTIN) CAP PO SCH (09:39)
[2019-09-04] MEDS: meTOprolol TARTRATE 25 MG (LOPRESSOR) TABLET PO SCH (09:40)
[2019-09-04] MEDS: OLANZapine 5 MG (ZyPREXA) TAB PO SCH (09:40)
[2019-09-04] MEDS: MIRTAZAPINE 15 MG (REMERON) TAB PO SCH (09:40)
[2019-09-04] MEDS: AZITHROMYCIN 250 MG TAB (ZITHROMAX) PO SCH (09:40)
[2019-09-04] MEDS: PANTOPRAZOLE 40 MG (PROTONIX) TAB PO SCH (09:40)
[2019-09-04] MEDS ORDERED: PRED10TA22 PO (10:08)
[2019-09-04] MEDS ORDERED: ASPI81TA55 PO (10:08)
[2019-09-04] MEDS ORDERED: AZIT250T12 PO (10:08)
[2019-09-04] MEDS ORDERED: CEFD300C3 PO (10:08)
[2019-09-04] MEDS ORDERED: FLUT12AE4 IH (10:08)
[2019-09-04] MEDS ORDERED: SUCR1TAB PO (10:08)
[2019-09-04] MEDS ORDERED: ATOR10TA66 PO (10:08)
--- NOTE | 2019-09-04 10:13 | Occ Therapy Progress Note ---
Therapy Progress Note Attempted therapy at 1000. Pt dressed and sitting in chair, states he is being discharged today. Pt declined to participate in therapy at this time, and states he has no questions or concerns. Pt sitting in chair with needs met. 1 visit LINDEN LANDA OT Sep 04, 2019 10:13
--- NOTE | 2019-09-04 11:11 | NUR ---
HOME MED DILANTIN RETURNED TO PT.
--- NOTE | 2019-09-04 11:16 | Discharge Summary ---
GILBERTO ESQUIVEL,MED STUDENT 09/04/19 1116: Diagnosis/Chief Complaint Date of Admission Sep 01, 2019 at 09:24 Date of Discharge Discharge Date: Sep 04, 2019 Admission Diagnosis Assessment: Pneumonia Lung cancer Early small bowel obstruction Chronic colostomy due to perforated bowel in 2016 Current smoker COPD Exacerbation of bronchospasm Cachexia with poor reserve Plan: Cefepime and Zithromax General surgery consultation Dr. Gomes is appreciated Monitor blood work Primary Care Self,James ADKINS Discharge Diagnosis (1) Pneumonia Status: Acute (2) Lung cancer Status: Acute (3) Abdominal pain Status: Acute (4) Status post colostomy Status: Acute Discharge Summary Discharge Physical Exam Allergies: Coded Allergies: nitroglycerin (Verified Allergy, Unknown, 04/14/16) morphine (Verified Adverse Reaction, Mild, nausea, 01/15/19) Vitals & I&Os Vital Signs Date Time Temp Pulse Resp B/P (MAP) Pulse Ox O2 Delivery O2 Flow Rate FiO2 09/04/19 10:41 96 Room Air 09/04/19 07:55 36.2 92 18 125/75 (92) General Appearance: No Apparent Distress, Chronically ill, Thin HEENT: Pharynx Normal, Moist Mucous Membranes Respiratory: Chest Non Tender, No Accessory Muscle Use, No Respiratory Distress, Crackles, Decreased Breath Sounds, Rhonci Cardiovascular: No Edema, No Gallop, No Murmur, Tachycardia Gastrointestinal: Non Tender, Soft Skin: Normal Color, Damp Neurologic/Psychiatric: Alert, Oriented x3 Hospital Course 58 yo male presented to [place] ER with three day history of nausea and one day of vomiting. Past medical history notable for stage IV lung cancer and previous small bowel obstruction resulting in obstruction. Infiltrate was noted on CXR and pt was transferred to [facility] ICU for IV antibiotics and bowel rest. Pt tolerated liquid diet and diet was advanced without symptoms. Cardiology was consulted and rec. ASA and liptor. Pulmonology was consulted and pt was started on Omnicef and azithromycin. Pt was discharged with oral antibiotics and close follow up. Labs (last 24 hrs) Laboratory Tests 09/04/19 05:20: White Blood Count 9.5, Red Blood Count 3.32L, Hemoglobin 9.9L, Hematocrit 29L, Mean Corpuscular Volume 89, Mean Corpuscular Hemoglobin 30, Mean Corpuscular Hemoglobin Concent 34, Red Cell Distribution Width 14.9H, Platelet Count 304, Mean Platelet Volume 8.2, Neutrophils (%) (Auto) 69, Lymphocytes (%) (Auto) 18, Monocytes (%) (Auto) 12, Eosinophils (%) (Auto) 2, Basophils (%) (Auto) 0, Neutrophils # (Auto) 6.5, Lymphocytes # (Auto) 1.7, Monocytes # (Auto) 1.1H, Eosinophils # (Auto) 0.2, Basophils # (Auto) 0.0, Sodium Level 141, Potassium Level 3.7, Chloride Level 111H, Carbon Dioxide Level 24, Anion Gap 6, Blood Urea Nitrogen 5L, Creatinine 0.73, Estimat Glomerular Filtration Rate > 60, BUN/Cre atinine Ratio 7, Glucose Level 84, Calcium Level 7.5L, Phosphorus Level 2.5, Magnesium Level 1.7 Microbiology 09/01/19 MRSA Screen - Final, Complete MRSA not isolated 09/01/19 Blood Culture - Preliminary, Resulted No growth Patient resulted labs reviewed. Pending Labs Laboratory Tests 09/04/19 05:20: White Blood Count 9.5, Red Blood Count 3.32, Hemoglobin 9.9, Hematocrit 29, Mean Corpuscular Volume 89, Mean Corpuscular Hemoglobin 30, Mean Corpuscular Hemoglobin Concent 34, Red Cell Distribution Width 14.9, Platelet Count 304, Mean Platelet Volume 8.2, Neutrophils (%) (Auto) 69, Lymphocytes (%) (Auto) 18, Monocytes (%) (Auto) 12, Eosinophils (%) (Auto) 2, Basophils (%) (Auto) 0, Neutrophils # (Auto) 6.5, Lymphocytes # (Auto) 1.7, Monocytes # (Auto) 1.1, Eosinophils # (Auto) 0.2, Basophils # (Auto) 0.0, Sodium Level 141, Potassium Level 3.7, Chloride Level 111, Carbon Dioxide Level 24, Anion Gap 6, Blood Urea Nitrogen 5, Creatinine 0.73, Estimat Glomerular Filtration Rate > 60, BUN/Creatinine Ratio 7, Glucose Level 84, Calcium Level 7.5, Phosphorus Level 2.5, Magnesium Level 1.7 Discharge Home Medications: Active Scripts Active Aspir-Low (Aspirin) 81 Mg Tablet.dr 81 Mg PO DAILY Prednisone 10 Mg Tab.ds.pk 10 Mg PO DAILY Take 6 tabs(60mg)daily,decrease by 1 tab(10MG)daily. Sucralfate 1 Gm Tablet 1 Gm PO ACHS Advair Hfa 115-21 Mcg Inhaler (Fluticasone/Salmeterol) 12 Gm Hfa.aer.ad 2 Puff IH BID@08,20 Atorvastatin Calcium 10 Mg Tablet 10 Mg PO HS Azithromycin 250 Mg Tablet 500 Mg PO DAILY Cefdinir 300 Mg Capsule 300 Mg PO BID Oxycodone-Acetaminophen 10-325 (Oxycodone HCl/Acetaminophen) 1 Each Tablet 1 Each PO Q6H PRN MDD 3 5 Days Reported Metoprolol Tartrate 25 Mg Tablet 25 Mg PO DAILY Pantoprazole Sodium 40 Mg Tablet.dr 40 Mg PO DAILY Olanzapine 10 Mg Tablet 10 Mg PO BID Mirtazapine 30 Mg Tablet 30 Mg PO DAILY Gabapentin 300 Mg Capsule 300 Mg PO TID Alprazolam 0.5 Mg Tablet 0.5 Mg PO TID PRN Dilantin (Phenytoin Sodium Extended) 100 Mg Capsule 100 Mg PO QID Instructions to patient/family Please see electronic discharge instructions given to patient. Clinical Quality Measures DVT/VTE Risk/Contraindication: Risk Factor Score Per Nursin RFS Level Per Nursing on Admit: 4+=Very High ROS DHALIWAL DO 09/04/192117: Diagnosis/Chief Complaint Discharge Diagnosis (1) Pneumonia Status: Acute (2) Status post colostomy Status: Acute (3) Metastatic carcinoma to lung Status: Acute (4) Mediastinal lymphadenopathy Status: Acute (5) Lung cancer Status: Acute Discharge Summary Discharge Physical Exam Allergies: Coded Allergies: nitroglycerin (Verified Allergy, Unknown, 04/14/16) morphine (Verified Adverse Reaction, Mild, nausea, 01/15/19) General Appearance: No Apparent Distress, WD/WN, Chronically ill, Thin Respiratory: Lungs Clear, Decreased Breath Sounds Cardiovascular: Regular Rate, Rhythm Neurologic/Psychiatric: Alert, Oriented x3, No Motor/Sensory Deficits, Normal Mood/Affect Hospital Course Was the Problem List Reviewed?: Yes Hospital course: Pt had an uneventful hospital course for four days, he was admitted for nausea and vomiting, found to have pneumonia, history of lung cancer required Dr. Gomes consultation and Dr. Romano consultation due to history of CAD and Dr. Robins for abdominal pain. Pt declined any EGD or colonoscopy, he was provided supportive care with IV fluids, IV antibiotics, nebulizer treatments and oxygen supplementation and Pt was well enough to finish prednisone taper dose along with Omnicef and Zithromax and will be seen in [facility] in one week. Discussion & Recommendations Discharge Planning: <30 minutes discharge planning Supervisory-Addendum Brief Verification & Attestation Participated in pt care: history, MDM, physical Personally performed: exam, history, MDM, supervision of care Care discussed with: Medical Student Procedures: n/a Results interpretation: Verified all documentation Verification and Attestation of Medical Student E/M Service A medical student performed and documented this service in my presence. I reviewed and verified all information documented by the medical student and made modifications to such information, when appropriate. I personally performed the physical exam and medical decision making. Ros Dhaliwal, Sep 04, 2019,21:17 GILBERTO ESQUIVEL,MED STUDENT Sep 04, 2019 11:16 ROS DHALIWAL DO Sep 04, 2019 21:18
--- NOTE | 2019-09-04 11:22 | Cardiology Progress Note ---
Cardiology SOAP Progress Note Subjective: Feeling much better. Objective: I&O/Vital Signs 09/04/19 09/04/19 09/04/19 09/04/19 00:00 04:00 07:55 09:00 Temp 36.4 37.0 36.2 Pulse 95 92 92 Resp 16 18 18 B/P (MAP) 124/67 (86) 121/70 (87) 125/75 (92) Pulse Ox 94 92 94 O2 Delivery Room Air Room Air Room Air Room Air 09/04/19 10:41 Pulse Ox 96 O2 Delivery Room Air 09/04/19 00:00 Intake Total 2400 ml Output Total 3050 ml Balance -650 ml Weight (Pounds): 147 Weight (Calculated Kilograms): [id number] Constitutional: appears stated age, AAO x 3; No apparent distress; other (sick-looking gentleman.) Respiratory: chest is bilaterally symmetric, lungs clear to auscultation Cardiovascular: regular rate-rhythm, S1 and S2 Gastrointestional: soft, audible bowel sounds; No spleenomegaly Extremities: normal range of motion, non-tender, normal inspection; No clubbing, No cyanosis; no lower extremity edema bilateral; No significant edema Neurologic/Psychiatric: no motor/sensory deficits, alert, normal mood/affect, oriented x 3, power is 5/5 both on sides Skin: normal color, warm/dry; No rash, No ulcerations Results/Procedures: Labs Laboratory Tests 09/04/19 05:20: White Blood Count 9.5, Red Blood Count 3.32L, Hemoglobin 9.9L, Hematocrit 29L, Mean Corpuscular Volume 89, Mean Corpuscular Hemoglobin 30, Mean Corpuscular Hemoglobin Concent 34, Red Cell Distribution Width 14.9H, Platelet Count 304, Mean Platelet Volume 8.2, Neutrophils (%) (Auto) 69, Lymphocytes (%) (Auto) 18, Monocytes (%) (Auto) 12, Eosinophils (%) (Auto) 2, Basophils (%) (Auto) 0, Neutrophils # (Auto) 6.5, Lymphocytes # (Auto) 1.7, Monocytes # (Auto) 1.1H, Eosinophils # (Auto) 0.2, Basophils # (Auto) 0.0, Sodium Level 141, Potassium Level 3.7, Chloride Level 111H, Carbon Dioxide Level 24, Anion Gap 6, Blood Urea Nitrogen 5L, Creatinine 0.73, Estimat Glomerular Filtration Rate > 60, BUN/Creatinine Ratio 7, Glucose Level 84, Calcium Level 7.5L, Phosphorus Level 2.5, Magnesium Level 1.7 Microbiology 09/01/19 MRSA Screen - Final, Complete MRSA not isolated 09/01/19 Blood Culture - Preliminary, Resulted No growth A/P: Assessment/Dx: Nausea, vomiting, Stage IV lung cancer, Active smoking, History of colostomy, bowel obstruction, History of opioid overuse, CAD, PCI in the past Plan: Nausea, vomiting, defer to the primary team and general surgery. Stage IV lung cancer, oncology following. Active smoking, strongly suggested to quit. History of colostomy, bowel obstruction, History of opioid overuse, monitor clinically. CAD, PCI in the past, not in any antiplatelet therapy. low-dose aspirin and Lip itor 10 mg daily. Once discharge patient will follow with outpatient biostatistics professor from [facility]. Thank you for your consultation. Please call me if you have any questions. Donta Romano MD, FACP, FACC, FSCAI, FHRS, CCDS Interventional Cardiology Cardiac Electrophysiology Vascular Medicine and Endovascular Interventions Marci ROMANO MD Sep 04, 2019 11:22
[2019-09-04 11:24] VITALS: BP 125/74
--- NOTE | 2019-09-04 12:42 | NUR ---
INSTRUCTIONS GIVEN AND VERBALIZED UNDERSTANDING. DC'D PER WC WITH FAMILY.
[2019-09-04] MEDS ORDERED: CEFDINIR 300 MG (OMNICEF) CAP PO SCH (21:00)
== END 2019-09-04 12:43 | disposition home or self-care (01) | DRG 388 ==
LOC: EDUNIT# 05:56 → ER FS 06:00 → ICU 09:24 → 4TH 21:51
PROVIDERS: ADMIT Internal Medicine; ATTEND Internal Medicine
DX: K56.690 Other partial intestinal obstruction (principal); J18.9 Pneumonia, unspecified organism; J98.11 Atelectasis; C34.91 Malignant neoplasm of unspecified part of right bronchus or lung; C79.31 Secondary malignant neoplasm of brain; C78.89 Secondary malignant neoplasm of other digestive organs; K92.0 Hematemesis; K29.71 Gastritis, unspecified, with bleeding; E87.3 Alkalosis; R64 Cachexia; I25.10 Atherosclerotic heart disease of native coronary artery without angina pectoris; J43.9 Emphysema, unspecified; G40.909 Epilepsy, unspecified, not intractable, without status epilepticus; K21.9 Gastro-esophageal reflux disease without esophagitis; F17.210 Nicotine dependence, cigarettes, uncomplicated; F41.9 Anxiety disorder, unspecified; E87.6 Hypokalemia; E83.42 Hypomagnesemia; M19.041 Primary osteoarthritis, right hand; M19.042 Primary osteoarthritis, left hand; M19.011 Primary osteoarthritis, right shoulder; M19.012 Primary osteoarthritis, left shoulder; I25.2 Old myocardial infarction; Z93.3 Colostomy status; Z92.21 Personal history of antineoplastic chemotherapy; Z95.5 Presence of coronary angioplasty implant and graft; Z95.828 Presence of other vascular implants and grafts; Z89.421 Acquired absence of other right toe(s)
CPT/HCPCS: 36415; 71045; 71270; 74022; 74178; 80048; 80053; 80306; 81000; 82805; 83605; 83690; 83735; 84100; 84484; 85007; 85025; 85027; 87040; 87081; 93005; 93306; 94640; 94664; 94760

== ENCOUNTER 2020-03-03 13:00 | Outpatient (RCR) | payer MEDICAID ==
[2019-12-10 13:17] LABS: BASOPHILS % (AUTO) 0 % (0-10); EOSINOPHILS # (AUTO) 0.2 10^3/uL (0.0-0.3); EOSINOPHILS % (AUTO) 2 % (0-10); HEMATOCRIT 38 % (40-54); HEMOGLOBIN 12.9 G/DL (13.3-17.7); LYMPHOCYTES # (AUTO) 1.9 X 10^3 (1.0-4.0); LYMPHOCYTES % (AUTO) 17 % (12-44); MEAN CORPUSCULAR HEMOGLOBIN 30 PG (25-34); MEAN CORPUSCULAR HGB CONC 34 G/DL (32-36); MEAN CORPUSCULAR VOLUME 88 FL (80-99); MEAN PLATELET VOLUME 8.6 FL (7.4-10.4); MONOCYTES # (AUTO) 1.1 X 10^3 (0.0-1.0); MONOCYTES % (AUTO) 10 % (0-12); NEUTROPHILS # (AUTO) 7.9 X 10^3 (1.8-7.8); NEUTROPHILS % (AUTO) 71 % (42-75); PLATELET COUNT 305 10^3/uL (130-400); RED CELL DISTRIBUTION WIDTH 13.8 % (10.0-14.5); WHITE BLOOD COUNT 11.2 10^3/uL (4.3-11.0)
[2019-12-10 13:36] LABS: ALANINE AMINOTRANSFERASE 12 U/L (0-55); ALBUMIN 3.7 GM/DL (3.2-4.5); ALKALINE PHOSPHATASE 207 U/L (40-136); BILIRUBIN,TOTAL 0.2 MG/DL (0.1-1.0); BUN/CREATININE RATIO 5; CALCIUM 8.1 MG/DL (8.5-10.1); CARBON DIOXIDE 21 MMOL/L (21-32); CHLORIDE 99 MMOL/L (98-107); CREATININE SERUM 0.93 MG/DL (0.60-1.30); GFR ESTIMATED > 60; GLUCOSE 97 MG/DL (70-105); POTASSIUM 4.2 MMOL/L (3.6-5.0); SODIUM 131 MMOL/L (135-145); TOTAL PROTEIN 6.8 GM/DL (6.4-8.2)
[~2020-03-03 13:00] MED LIST changes: +ALPR0.5T7 PO; +ASPI81TA55 PO; +ATOR10TA66 PO; +AZIT250T12 PO; +CEFD300C3 PO; +FLUT12AE4 IH; +GABA-488 PO; +METO-333 PO; +MIRT30TA6 PO; +OLAN10TA19 PO; +PANT40TA3 PO; +PHEN100C4 PO; +PRED10TA22 PO; +SUCR1TAB PO
[2020-03-03 13:22] LABS: BASOPHILS # (AUTO) 0.1 10^3/uL (0.0-0.1); BASOPHILS % (AUTO) 1 % (0-10); EOSINOPHILS # (AUTO) 0.2 10^3/uL (0.0-0.3); EOSINOPHILS % (AUTO) 2 % (0-10); HEMATOCRIT 35 % (40-54); HEMOGLOBIN 12.3 G/DL (13.3-17.7); LYMPHOCYTES # (AUTO) 1.9 X 10^3 (1.0-4.0); LYMPHOCYTES % (AUTO) 19 % (12-44); MEAN CORPUSCULAR HEMOGLOBIN 31 PG (25-34); MEAN CORPUSCULAR HGB CONC 35 G/DL (32-36); MEAN CORPUSCULAR VOLUME 88 FL (80-99); MEAN PLATELET VOLUME 8.9 FL (7.4-10.4); MONOCYTES # (AUTO) 0.9 X 10^3 (0.0-1.0); MONOCYTES % (AUTO) 9 % (0-12); NEUTROPHILS # (AUTO) 6.8 X 10^3 (1.8-7.8); NEUTROPHILS % (AUTO) 69 % (42-75); PLATELET COUNT 377 10^3/uL (130-400); RED CELL DISTRIBUTION WIDTH 13.3 % (10.0-14.5); WHITE BLOOD COUNT 9.7 10^3/uL (4.3-11.0)
[2020-03-03 13:39] LABS: ALANINE AMINOTRANSFERASE 13 U/L (0-55); ALBUMIN 3.6 GM/DL (3.2-4.5); ALKALINE PHOSPHATASE 213 U/L (40-136); BILIRUBIN,TOTAL 0.2 MG/DL (0.1-1.0); BUN/CREATININE RATIO 7; CALCIUM 8.2 MG/DL (8.5-10.1); CARBON DIOXIDE 22 MMOL/L (21-32); CHLORIDE 103 MMOL/L (98-107); CREATININE SERUM 1.03 MG/DL (0.60-1.30); GFR ESTIMATED > 60; GLUCOSE 84 MG/DL (70-105); POTASSIUM 4.2 MMOL/L (3.6-5.0); SODIUM 134 MMOL/L (135-145); TOTAL PROTEIN 6.5 GM/DL (6.4-8.2)
== END 2020-03-09 | disposition home or self-care (01) ==
LOC: ONC 13:00
PROVIDERS: ATTEND Internal Medicine Hematology & Oncology
DX: C34.11 Malignant neoplasm of upper lobe, right bronchus or lung (principal); C79.31 Secondary malignant neoplasm of brain; C79.71 Secondary malignant neoplasm of right adrenal gland; G40.909 Epilepsy, unspecified, not intractable, without status epilepticus; E83.42 Hypomagnesemia; F17.210 Nicotine dependence, cigarettes, uncomplicated; I25.10 Atherosclerotic heart disease of native coronary artery without angina pectoris; I25.2 Old myocardial infarction; M97.01XA Periprosthetic fracture around internal prosthetic right hip joint, initial encounter; K56.609 Unspecified intestinal obstruction, unspecified as to partial versus complete obstruction; I73.9 Peripheral vascular disease, unspecified; D64.89 Other specified anemias; E78.00 Pure hypercholesterolemia, unspecified; M19.90 Unspecified osteoarthritis, unspecified site; I63.9 Cerebral infarction, unspecified; I50.9 Heart failure, unspecified; Z93.3 Colostomy status; Z82.0 Family history of epilepsy and other diseases of the nervous system; Z95.5 Presence of coronary angioplasty implant and graft; Z95.1 Presence of aortocoronary bypass graft; Z79.899 Other long term (current) drug therapy; Z79.82 Long term (current) use of aspirin
CPT/HCPCS: 80053; 84443; 85025; G0463; 36591

== ENCOUNTER 2020-03-06 19:04 | Emergency (ER) | payer MEDICAID ==
[~2020-03-06] VITALS: Ht 182.8 cm; Wt 63.5 kg
[2020-03-06] MEDS ORDERED: ONDANSETRON 4 MG/2 ML (SDV) Z0FRAN IVP STA (19:32)
[2020-03-06] MEDS ORDERED: fentaNYL INJECTION 100 MCG/2 ML AMP IVP STA (19:32)
[2020-03-06] MEDS ORDERED: NS IV 1000 ML 1,000 ML IV STA (19:32)
[2020-03-06 19:40] LABS: BASOPHILS # (AUTO) 0.1 10^3/uL (0.0-0.1); BASOPHILS % (AUTO) 0 % (0-10); EOSINOPHILS # (AUTO) 0.1 10^3/uL (0.0-0.3); EOSINOPHILS % (AUTO) 1 % (0-10); HEMATOCRIT 38 % (40-54); HEMOGLOBIN 13.1 G/DL (13.3-17.7); LYMPHOCYTES # (AUTO) 1.4 X 10^3 (1.0-4.0); LYMPHOCYTES % (AUTO) 7 % (12-44); MEAN CORPUSCULAR HEMOGLOBIN 31 PG (25-34); MEAN CORPUSCULAR HGB CONC 35 G/DL (32-36); MEAN CORPUSCULAR VOLUME 88 FL (80-99); MEAN PLATELET VOLUME 8.8 FL (7.4-10.4); MONOCYTES # (AUTO) 1.8 X 10^3 (0.0-1.0); MONOCYTES % (AUTO) 8 % (0-12); NEUTROPHILS # (AUTO) 17.9 X 10^3 (1.8-7.8); NEUTROPHILS % (AUTO) 84 % (42-75); PLATELET COUNT 362 10^3/uL (130-400); RED CELL DISTRIBUTION WIDTH 13.2 % (10.0-14.5); WHITE BLOOD COUNT 21.4 10^3/uL (4.3-11.0)
[2020-03-06] MEDS ORDERED: CATHETER FLUSH 10 ML SYR IV PRN (19:45)
[2020-03-06] MEDS ORDERED: IOHEXOL 350 MG/ML 100 ML (OMNIPAQUE 350) VIAL IV ONE (19:45)
[2020-03-06] MEDS ORDERED: NS 100 ML (IVPB) BAG IV ONE (19:45)
[2020-03-06] MEDS ORDERED: HOLD METFORMIN - RECEIVED CONTRAST 20 ML VIAL IV SCH (19:45)
[2020-03-06 19:47] LABS: CLARITY,URINE CLEAR; COLOR,URINE DARK YELLOW
[2020-03-06 19:54] LABS: BACTERIA,URINE NEGATIVE /HPF; BILIRUBIN,URINE NEGATIVE (NEGATIVE); GLUCOSE, URINE (UA) NEGATIVE (NEGATIVE); KETONES,URINE NEGATIVE (NEGATIVE); LEUKOCYTE ESTERASE ,URINE NEGATIVE (NEGATIVE); NITRITE,URINE NEGATIVE (NEGATIVE); PROTEIN,URINE NEGATIVE (NEGATIVE); RBC,URINE 0-2 /HPF; SQUAMOUS EPITHELIAL CELL,UR 0-2 /HPF; WBC,URINE 0-2 /HPF
[2020-03-06 19:55] LABS: BAND NEUTROPHILS 2 %; EOSINOPHILS % (MANUAL) 2 %; LYMPHOCYTES % (MANUAL) 7 %; MONOCYTES % (MANUAL) 7 %; NEUTROPHILS % (MANUAL) 82 %; PROTHROMBIN TIME PATIENT 13.2 SEC (12.2-14.7)
[2020-03-06 19:56] LABS: RBC MORPH NORMAL
--- NOTE | 2020-03-06 19:56 | ED General ---
General Chief Complaint: Trauma-Non Activation Stated Complaint: FALL Nursing Triage Note: Patient is brought in via EMS due to a fall. EMS states that the patient fell last night but patient states he fell today. Patient reports being in bed all day and has had lower back pain. Patient also has generalized pain about the body. Patient states he tripped over a threshhold in the walkway. Patient denies having any loss of consciousness. Patient did state he vomited x1. Nursing Sepsis Screen: No Definite Risk Source of Information: Patient History of Present Illness Date Seen by Provider: Mar 06, 2020 Time Seen by Provider: 19:04 Initial Comments 59 yo male presenting with complaints of back and pelvis pain since having a fall. He complains of generalized weakness. EMS reported that he tripped over a transition between the linoleum to carpet at his apartment and this occurred last night. However the patient later stated that he was cutting open a box and then fell however he could not tell us if he fell forward or backward. He has an abrasion to his forehead from when he fell which looks to be about a day old. He denies loss of consciousness. He is inconsistent in his reports of timing for when he has gotten up out of bed and when the fall happened. He states that he has been in bed all day since he fell but then later states that he fell this afternoon. He has been having back pain from the middle of his thoracic area all the way down his spine into his pelvis. He states that that has been since the fall. He denies hitting his back but again cannot remember if he fell backward or forward. He does have the abrasion on his forehead which makes it look like he had fallen at some point in the last day or so he and has fallen forward and scraped his forehead. He denies abdominal pain but did vomit one time after EMS arrived to transport him. He has a full ostomy bag that has not been emptied for a while. he states he has not drank much today and not eaten today. He has only urinated one time today. Allergies and Home Medications Allergies Coded Allergies: nitroglycerin (Verified Allergy, Unknown, 04/14/16) morphine (Verified Adverse Reaction, Mild, nausea, 01/15/19) Home Medications Alprazolam 0.5 Mg Tablet, 0.5 MG PO TID PRN for ANXIETY, (Reported) Aspirin 81 Mg Tablet., 81 MG PO DAILY Prescribed by: RHIANNON DHALIWAL on 09/04/191007 Atorvastatin Calcium 10 Mg Tablet, 10 MG PO HS Prescribed by: HRIANNON DHALIWAL on 09/04/191007 Azithromycin 250 Mg Tablet, 500 MG PO DAILY Prescribed by: RHIANNON DHALIWAL on 09/04/191007 Cefdinir 300 Mg Capsule, 300 MG PO BID Prescribed by: RHIANNON DHALIWAL on 09/04/191007 Fluticasone/Salmeterol 12 Gm Hfa.aer.ad, 2 PUFF IH BID@ Prescribed by: RHIANNON DHALIWAL on 09/04/191007 Gabapentin 300 Mg Capsule, 300 MG PO TID, (Reported) Metoprolol Tartrate 25 Mg Tablet, 25 MG PO DAILY, (Reported) Mirtazapine 30 Mg Tablet, 30 MG PO DAILY, (Reported) Olanzapine 10 Mg Tablet, 10 MG PO BID, (Reported) Oxycodone HCl/Acetaminophen 1 Each Tablet, 1 EACH PO Q6H PRN for PAIN-SEVERE TO BREAKTHROUGH Prescribed by: SERAFIN SINGER on 01/15/191946 Pantoprazole Sodium 40 Mg Tablet.dr, 40 MG PO DAILY, (Reported) Phenytoin Sodium Extended 100 Mg Capsule, 100 MG PO QID, (Reported) Prednisone 10 Mg Tab.ds.pk, 10 MG PO DAILY Take 6 tabs(60mg)daily,decrease by 1 tab(10MG)daily. Prescribed by: RHIANNON DHALIWAL on 09/04/191007 Sucralfate 1 Gm Tablet, 1 GM PO ACHS Prescribed by: RHIANNON DHALIWAL on 09/04/191007 Patient Home Medication List Home Medication List Reviewed: Yes Review of Systems Review of Systems Constitutional: No chills, No fever EENTM: other (abrasion to right forehead); No ear discharge, No ear pain, No blurred vision, No epistaxis, No nose congestion, No throat pain Respiratory: No cough, No short of breath Cardiovascular: No chest pain Gastrointestinal: No abdominal pain; vomiting (one time after EMS picked him up for transport) Genitourinary: decreased output (today) Musculoskeletal: see HPI Skin: see HPI Psychiatric/Neurological: Denies Headache, Denies Numbness, Denies Tingling, Denies Tremors; Weakness (general) Hematologic/Lymphatic: No Symptoms Reported Past Ubawlxe-Zqrrcf-Ybygcb Hx Past Med/Social Hx: Reviewed Nursing Past Med/Soc Hx Patient Social History Alcohol Use: Denies Use Recreational Drug Use: No Smoking Status: Current Everyday Smoker Type Used: Cigarettes 2nd Hand Smoke Exposure: No Recent Foreign Travel: No Contact w/Someone Who Travel: No Recent Infectious Disease Expo: No Recent Hopitalizations: No Physical Abuse: No Sexual Abuse: No Mistreated: No Fear: No Immunizations Up To Date Date of Pneumonia Vaccine: May 11, 2016 Date of Influenza Vaccine: May 02, 2019 Seasonal Allergies Seasonal Allergies: No Past Medical History Surgeries: Yes (colostomy, port (left), toe amputation) Bowel Surgery, Cardiac Respiratory: No Cardiac: No Coronary Artery Disease, Heart Attack Neurological: Yes Seizure Disorder Genitourinary: No Gastrointestinal: Yes (colostomy) Gastroesophageal Reflux, Gastrointestinal Bleed, Chronic Constipation Musculoskeletal: Yes Arthritis Endocrine: No HEENT: No Cancer: Yes (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) Lung What Type of Treatment Did You: Chemotherapy, Radiation, Other Psychosocial: No Anxiety Integumentary: Yes (nicotine discoloration of the hands) Physical Exam Vital Signs Vital Signs - First Documented 03/06/20 19:05 Temp 36.3 Pulse 90 Resp 18 B/P (MAP) 134/76 (95) Pulse Ox 96 O2 Delivery Room Air Capillary Refill : Less Than 3 Seconds Height, Weight, BMI Height: 6'0" Weight: 147lbs. oz. [id number]; 19.00 BMI Method:Stated General Appearance: No Apparent Distress, Thin, Other (smells of cigarette smoke) HEENT: PERRL/EOMI, TMs Normal, Pharynx Normal Neck: Non Tender, Supple Respiratory: Chest Non Tender, No Accessory Muscle Use, No Respiratory Distress, Decreased Breath Sounds Cardiovascular: Regular Rate, Rhythm, Normal Peripheral Pulses, Extra Beats Gastrointestinal: No Pulsatile Mass, Non Tender, Soft, Abnormal Bowel Sounds (hypoactive), Other (ostomy bag full and leaking some brown colored stool) Back: No CVA Tenderness, Vertebral Tenderness (from mid thoracic spine down throughout lumbar spine. no step offs ) Extremity: Normal Capillary Refill, No Calf Tenderness, Pedal Edema (trace to 1+ BLE), Pelvis Stable Neurologic/Psychiatric: Alert, Oriented x3, No Motor/Sensory Deficits, perfume compounder II-XII Norm as Tested Skin: Normal Color, Warm/Dry Focused Exam Lactate Level 03/06/20 21:30: Lactic Acid Level 1.91 Lactic Acid Level Laboratory Tests Test 03/06/20 21:30 Lactic Acid Level 1.91 MMOL/L (0.50-2.00) Progress/Results/Core Measures Suspected Sepsis Recent Fever Within 48 Hours: No Infection Criteria Present: None New/Unexplained Altered Menta: No Sepsis Screen: No Definite Risk SIRS Temperature: Pulse: 90 Respiratory Rate: 18 Laboratory Tests 03/06/20 19:30: White Blood Count 21.4H Blood Pressure 134 /76 Mean: 95 03/06/20 21:30: Lactic Acid Level 1.91 Laboratory Tests 03/06/20 19:30: Creatinine 0.96, INR Comment 1.0, Platelet Count 362, Total Bilirubin 0.2 Results/Orders Lab Results Laboratory Tests Test 03/06/20 19:30 03/06/20 19:40 03/06/20 21:30 Range/Units White Blood Count 21.4 H 4.3-11.0 10^3/uL Red Blood Count 4.28 L 4.35-5.85 10^6/uL Hemoglobin 13.1 L 13.3-17.7 G/DL Hematocrit 38 L 40-54 % Mean Corpuscular Volume 88 80-99 FL Mean Corpuscular Hemoglobin 31 25-34 PG Mean Corpuscular Hemoglobin Concent 35 32-36 G/DL Red Cell Distribution Width 13.2 10.0-14.5 % Platelet Count 362 130-400 10^3/uL Mean Platelet Volume 8.8 7.4-10.4 FL Neutrophils (%) (Auto) 84 H 42-75 % Lymphocytes (%) (Auto) 7 L 12-44 % Monocytes (%) (Auto) 8 0-12 % Eosinophils (%) (Auto) 1 0-10 % Basophils (%) (Auto) 0 0-10 % Neutrophils # (Auto) 17.9 H 1.8-7.8 X 10^3 Lymphocytes # (Auto) 1.4 1.0-4.0 X 10^3 Monocytes # (Auto) 1.8 H 0.0-1.0 X 10^3 Eosinophils # (Auto) 0.1 0.0-0.3 10^3/uL Basophils # (Auto) 0.1 0.0-0.1 10^3/uL Neutrophils % (Manual) 82 % Lymphocytes % (Manual) 7 % Monocytes % (Manual) 7 % Eosinophils % (Manual) 2 % Band Neutrophils 2 % Blood Morphology Comment NORMAL Prothrombin Time 13.2 12.2-14.7 SEC INR Comment 1.0 0.8-1.4 Activated Partial Thromboplast Time 28 24-35 SEC Sodium Level 133 L 135-145 MMOL/L Potassium Level 3.9 3.6-5.0 MMOL/L Chloride Level 98 98-107 MMOL/L Carbon Dioxide Level 23 21-32 MMOL/L Anion Gap 12 5-14 MMOL/L Blood Urea Nitrogen 7 7-18 MG/DL Creatinine 0.96 0.60-1.30 MG/DL Estimat Glomerular Filtration Rate > 60 BUN/Creatinine Ratio 7 Glucose Level 132 H 70-105 MG/DL Calcium Level 8.8 8.5-10.1 MG/DL Corrected Calcium 9.0 8.5-10.1 MG/DL Magnesium Level 1.3 L 1.6-2.4 MG/DL Total Bilirubin 0.2 0.1-1.0 MG/DL Aspartate Amino Transf (AST/SGOT) 19 5-34 U/L Alanine Aminotransferase (ALT/SGPT) 14 0-55 U/L Alkaline Phosphatase 223 H 40-136 U/L Troponin I < 0.30 <0.30 NG/ML Pro-B-Type Natriuretic Peptide 476.0 H <75.0 PG/ML Total Protein 6.7 6.4-8.2 GM/DL Albumin 3.8 3.2-4.5 GM/DL Lipase 18 8-78 U/L Urine Color DARK YELLOW Urine Clarity CLEAR Urine pH 6.0 5-9 Urine Specific Media 1.020 1.016-1.022 Urine Protein NEGATIVE NEGATIVE Urine Glucose (UA) NEGATIVE NEGATIVE Urine Ketones NEGATIVE NEGATIVE Urine Nitrite NEGATIVE NEGATIVE Urine Bilirubin NEGATIVE NEGATIVE Urine Urobilinogen 0.2 < = 1.0 MG/DL Urine Leukocyte Esterase NEGATIVE NEGATIVE Urine RBC (Auto) NEGATIVE NEGATIVE Urine RBC 0-2 /HPF Urine WBC 0-2 /HPF Urine Squamous Epithelial Cells 0-2 /HPF Urine Crystals NONE /LPF Urine Bacteria NEGATIVE /HPF Urine Casts PRESENT /LPF Urine Hyaline Casts 10-25 H /LPF Urine Mucus MODERATE H /LPF Urine Culture Indicated NO Lactic Acid Level 1.91 0.50-2.00 MMOL/L My Orders Orders - SERAFIN SINGER MD Cbc With Automated Diff (03/06/20 19:28) Magnesium (03/06/20 19:28) Ekg Tracing (03/06/20 19:28) Comprehensive Metabolic Panel (03/06/20 19:28) Protime With Inr (03/06/20:) Partial Thromboplastin Time (03/06/20:28) Monitor-Rhythm Ecg Trace Only (03/06/20 19:28) Ed Iv/Invasive Line Start (03/06/20 19:28) Lipase (03/06/20 19:) Troponin I Fs (03/06/20 19:28) Probnp Fs (03/06/20:) Ct Head/Cervical Spine Wo (03/06/20 19:28) Ct Chest/Abdomen/Pelvis W (03/06/20 19:28) Femur 2 View Right (03/06/20 19:28) Ua Culture If Indicated (03/06/20 19:28) Ondansetron Injection (Zofran Injectio (03/06/20 19:32) Fentanyl Injection (Sublimaze Injection (03/06/20 19:32) Ns Iv 1000 Ml (Sodium Chloride 0.9%) (03/06/20 19:32) Manual Differential (03/06/20 19:30) Iohexol Injection (Omnipaque 350 Mg/Ml 1 (03/06/20 19:45) Received Contrast (Hold Metformin- Contr (03/06/20 19:45) Ns (Ivpb) (Sodium Chloride 0.9% Ivpb Bag (03/06/20 19:45) Sodium Chloride Flush (Catheter Flush Sy (03/06/20 19:45) Blood Culture (03/06/20 20:42) Lactic Acid Analyzer (03/06/20 20:42) Magnesium 1 Gm/100 Ml Ivpb (Magnesium Tiwari (03/06/20 21:45) Ns Iv 1000 Ml (Sodium Chloride 0.9%) (03/06/20 21:45) Medications Given in ED Current Medications Medications Dose Ordered Sig/Cortney Route Start Time Stop Time Status Last Admin Dose Admin Iohexol 100 ml ONCE ONCE IV 03/06/20 19:45 03/06/20 19:46 DC 03/06/20 20:43 100 ML Magnesium Sulfate/ Dextrose 100 ml @ 100 mls/hr ONCE ONCE IV 03/06/20 21:45 03/06/20 22:44 DC 03/06/20 21:53 100 MLS/HR Sodium Chloride 10 ml NEEDED PRN IV 03/06/20 19:45 03/06/20 23:02 DC 03/06/20 20:43 10 ML Sodium Chloride 100 ml ONCE ONCE IV 03/06/20 19:45 03/06/20 19:46 DC 03/06/20 20:43 100 ML Vital Signs/I&O 03/06/20 03/06/20 19:05 22:54 Temp 36.3 Pulse 90 83 Resp 18 18 B/P (MAP) 134/76 (95) 111/90 Pulse Ox 96 94 O2 Delivery Room Air Room Air Capillary Refill : Less Than 3 Seconds Blood Pressure Mean: 95 Progress Note #1: Progress Note check labs and ECG with cardiac enzymes and UA. Image head, cervical spine, chest/abdomen/pelvis and femur. for pain give a dose of fentanyl and zofran si nce he had 1 episode of n/v prior to arrival. 1 liter NS for hydration since he had reported not drinking hardly any fluids all day. Progress Note #2: Progress Note labs show elevated WBC with left shift. Chemistry, cardiac enzymes and urine all stable without acute significant abnormality. Mag low at 1.3. Progress Note #3: Progress Note Imaging does not show any acute fractures or internal injury. H e has what appears to be chronic or non healed area on femur. Hardware stable on right femur/hip. Lactic acid 1.9. No focal finding for infection and not septic. D/w Dr. Dhaliwal the prison keeper doctor for Dr. Mullen and [facility]. With nothing focal and only having elevated WBC count will hydrate here in ED, replace magnesium and discharge to home. Have him recheck labs on Monday morning and Dr. Dhaliwal will review those. 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 ECG Initial ECG Impression Date: Mar 06, 2020 Initial ECG Impression Time: 19:34 Initial ECG Rate: 86 Comment Sinus rhythm with heart rate of 86 bpm. There is an abnormal R wave progression and early transition. His QT interval is 361 ms with a QTc interval 432 ms. There is no acute ST elevation. Diagnostic Imaging Diagonstic Imaging: Xray Plain Films/CT/US/NM/MRI: femur Comments NAME: NATALY RITCHIE [facility] REC#: [id number] PT STATUS: REG ER : 1960 PHYSICIAN: SERAFIN SINGER MD ADMIT DATE: 03/06/20/ER FS Draft Date of Exam:03/06/20 FEMUR 2 VIEW RIGHT INDICATION: Fall with right hip pain. EXAMINATION: AP and lateral views of the right femur were obtained. FINDINGS: Hardware is visualized in the right femoral neck and proximal shaft. There is a lucency in the right proximal femur in the intertrochanteric region, which is compatible with fracture. The lucency, however, has fairly sclerotic borders suggesting this may be subacute or chronic. Correlate with any recent prior films, if available. This does appear to be at the same site as the previous fracture seen on 05/06/2019. The mid and distal femoral shaft are intact. IMPRESSION: There is hardware in the right femoral neck and proximal shaft. There is a lucency in the intertrochanteric region with sclerotic borders, which is probably a subacute or chronic fracture with incomplete union, rather than an acute fracture. The mid and distal femoral shaft are intact. Dictated on workstation # [id number] Dict: 03/06/202111 Trans: 03/06/202120 [facility] [id number] Interpreted by: CATALINA REDDY MD Electronically signed by: Diagonstic Imaging: CT Plain Films/CT/US/NM/MRI: c-spine, head Comments NAME: NATALY RITCHIE [facility] REC#: [id number] PT STATUS: REG ER : 1960 PHYSICIAN: SERAFIN SINGER MD ADMIT DATE: 03/06/20/ER FS Draft Date of Exam:03/06/20 CT HEAD/CERVICAL SPINE WO INDICATION: Fall with confusion and weakness. TECHNIQUE: Multiple contiguous axial images were obtained through the brain and cervical spine without the use of intravenous contrast. Sagittal and coronal reformations through the cervical spine were then performed. Auto Exposure Controls were utilized during the CT exam to meet ALARA standards for radiation dose reduction. CT BRAIN FINDINGS: There are mild diffuse atrophic changes. There are patchy low-density changes in the deep white matter compatible with chronic ischemic change. There is some motion artifact. There is no definite acute appearing finding. Calvarial windows appear unremarkable. CT CERVICAL SPINE FINDINGS: There is no evidence of cervical spine fracture. There is no subluxation or malalignment. There are mild degenerative changes of the facet joints throughout. IMPRESSION: 1. CT brain shows mild atrophic changes with patchy low-density changes in the deep white matter which may represent chronic ischemic change. There is no acute hemorrhage or acute appearing finding or calvarial fracture. 2. CT cervical spine shows mild degenerative findings with no acute abnormality. Dictated on workstation # [id number] Dict: 03/06/202121 Trans: 03/06/202129 [facility] [id number] Interpreted by: CATALINA REDDY MD Electronically signed by: [place]el Imaging: CT Plain Films/CT/US/NM/MRI: chest, abdomen, pelvis Comments [facility] [place] NAME: ERMANATALY D [facility] REC#: [id number] PT STATUS: REG ER : 1960 PHYSICIAN: SERAFIN SINGER MD ADMIT DATE: 03/06/20/ER FS Draft Date of Exam:03/06/20 CT CHEST/ABDOMEN/PELVIS W INDICATION: Fall with back pain and right hip pain. History of lung cancer and ostomy. TECHNIQUE: Multiple contiguous axial images were obtained through the chest, abdomen, and pelvis after the administration of intravenous contrast. Auto Exposure Controls were utilized during the CT exam to meet ALARA standards for radiation dose reduction. COMPARISON: 09/01/2019. CT CHEST FINDINGS: The right upper lobe mass lesion which had measured about 3.0 x 2.7 cm is stable in size, measuring 3.0 x 2.6 cm. Some faint central calcification is noted. There are COPD changes. There is a calcified granuloma in the left upper lobe. There is no new pulmonary parenchymal lesion. There is no pleural fluid collection or pericardial effusion. Port-A-Cath is seen over the left chest. The mildly prominent subcarinal node which had measured 1.7 cm in short axis diameter is stable, measuring 1.6 cm. There is no new abnormality in the chest. CT ABDOMEN/PELVIS FINDINGS: The liver shows no discrete focal lesions. Gallbladder appears normal. Spleen shows several calcified granulomata but is otherwise normal in appearance. The adrenals and pancreas appear normal. Kidneys, bilaterally, are unremarkable except for a small cyst in the right kidney. There is no retroperitoneal mass or adenopathy. Patient has had previous aortobifemoral bypass. Both limbs of the device are patent. There is no pelvic mass or free fluid. Visualized bowel loops show no sign of obstruction. There is an ostomy in the left lower quadrant. There is no parastomal hernia or obstruction. There is postoperative hardware in the right proximal femur. IMPRESSION: 1. CT chest shows emphysematous changes. There is no change in size of spiculated mass in right upper lobe compatible with patient's known lung cancer. Mild subcarinal adenopathy is also stable. There is no new finding in the chest. 2. CT abdomen and pelvis demonstrate no evidence of mass lesion or abscess. There is no sign of bowel obstruction. There is an ostomy in the left lower quadrant. There is a benign-appearing cyst in the right kidney. There are postoperative changes status post aortobifemoral bypass. There is no acute appearing finding. Dictated on workstation # [id number] Dict: 03/06/202104 Trans: 03/06/202117 [facility] [id number] Interpreted by: CATALINA REDDY MD Electronically signed by: Departure Impression Primary Impression: Abrasion of forehead Qualified Codes: S00.81XA - Abrasion of other part of head, initial encounter Additional Impressions: Fall at home Qualified Codes: W19.XXXA - Unspecified fall, initial encounter; Y92.009 - Unspecified place in unspecified non-institutional (private) residence as the place of occurrence of the external cause Thoracic spine pain Lumbar spine strain Qualified Codes: S39.012A - Strain of muscle, fascia and tendon of lower back, initial encounter Hypomagnesemia Leukocytosis Qualified Codes: D72.829 - Elevated white blood cell count, unspecified Disposition: 01 HOME, SELF-CARE Condition: Stable Departure-Patient Inst. Decision time for Depature: 22:17 Referrals: RYAN MULLEN MD (PCP/Family) Primary Care Physician Patient Instructions: Back Muscle Strain (DC), Low Magnesium Level (DC), Muscle and Bone Pain (DC), Preventing Falls, Skin Abrasions (DC), Upper Back Pain (DC) Add. Discharge Instructions: Have Home Health or return for lab draw on Monday for a repeat CBC and Complete metabolic panel. Dr. Dhaliwal will review this so having them done early Monday morning will help so she has time to review them. Make sure you are eating a balance diet. Drink plenty of fluids and stay well hydrated Check back with Dr. Mullen this next week for a recheck All discharge instructions reviewed with patient and/or family. Voiced understanding. SERAFIN SINGER MD Mar 06, 2020 19:56
[2020-03-06 19:58] LABS: POTASSIUM 3.9 MMOL/L (3.6-5.0); SODIUM 133 MMOL/L (135-145)
[2020-03-06 19:59] LABS: ALANINE AMINOTRANSFERASE 14 U/L (0-55); ALBUMIN 3.8 GM/DL (3.2-4.5); ALKALINE PHOSPHATASE 223 U/L (40-136); BILIRUBIN,TOTAL 0.2 MG/DL (0.1-1.0); BUN/CREATININE RATIO 7; CALCIUM 8.8 MG/DL (8.5-10.1); CARBON DIOXIDE 23 MMOL/L (21-32); CHLORIDE 98 MMOL/L (98-107); CREATININE SERUM 0.96 MG/DL (0.60-1.30); GFR ESTIMATED > 60; GLUCOSE 132 MG/DL (70-105); LIPASE 18 U/L (8-78); MAGNESIUM 1.3 MG/DL (1.6-2.4); TOTAL PROTEIN 6.7 GM/DL (6.4-8.2)
--- OUTSIDE RECORDS SUMMARY | 2020-03-06 20:35 | XMS REPORT | Clinical Summary ---
Author Author [facility] Organization [facility] Address Unknown Phone Unavailable Care Team Providers Care Patent Counsel Name Role Phone Self, James ADKINS PCP Source Comments Some departments are not documenting in the electronic medical record. If you d o not see the information that you expected, contact Release of Information in [facility] [employer] Information Management department at [phone] for further assistan ce in locating additional records.[facility] Allergies Comments Active Allergy Reactions Severity Noted Date Ibuprofen NAUSEA ONLY, Low 04/03/2015 NAUSEA AND VOMITING Morphine STOMACH UPSET 09/25/2012 Throat closing Nitroglycerin EDEMA 09/25/2012 Medications End Date Status Medication Sig Dispensed Refills Start Date Active atorvastatin (LIPITOR) 40 Take 40 mg by 0 mg tablet mouth daily. Active HYDROcodone/acetaminophen Take 1 Tab by 0 /2 (+) (LORTAB, NORCO) mouth every 4 6 10/325 mg tablet hours as needed For Pain Active CYCLOBENZAPRINE HCL Take by 0 (FLEXERIL PO) mouth. Active senna (SENOKOT) 8.6 mg Take 2 Tabs 0 tablet by mouth at bedtime as needed for Constipation. Active oxyCODONE SR (OXYCONTIN) Take 10 mg by 0 10 mg ER tablet mouth every 12 hours Active ALPRAZolam (XANAX) 0.25 Take 1 tablet 60 tablet 2 12/26/ mg tablet by mouth 8 three times daily as needed. Active gabapentin (NEURONTIN) Take 300 mg 0 300 mg capsule by mouth every 8 hours. Active DILANTIN EXTENDED 100 mg Take 2 360 capsule 3 0 capsule capsules by 0 mouth twice daily Active mirtazapine (REMERON) 30 Take 30 mg by 0 mg tablet mouth at bedtime daily. Active OLANZapine (ZYPREXA) 10 Take 10 mg by 0 mg tablet mouth at bedtime daily. Active Problems Problem Noted Date Tobacco dependence 01/06/2020 Adjustment disorder with disturbance of emotion 02/04 Decreased appetite 10/10/2018 Lung cancer metastatic to brain 10/10/2018 Left frontal lobe epilepsy 02/28/2017 Encounter for long-term (current) use of medications 01/23/2017 Other specified anxiety disorders 10/24/2016 Mood disorder with depressive features due to general medical condition 10/24/2016 Dysphagia, pharyngoesophageal phase 12/18/2013 Laryngopharyngeal reflux 12/18/2013 Schizophrenia, paranoid type 04/21/2013 Osteopenia 12/17/2012 Congestion 09/25/2012 Chronic sinusitis 09/25/2012 Tinnitus 09/25/2012 Hearing loss 09/25/2012 Resolved Problems Problem Noted Date Resolved Date Seizure disorder 04/17/2013 02/28/2017 Overview: Follows with neurology Encounters Care Team Description Date Type Specialty Marycruz Santos MD Medication Question 02/10/2020 Telephone Psychiatry Jaciel Villalba MD Mayorga May, Angela K, MD Schizophrenia, paranoid type (HCC) (Prim ever Dx); Other specified anxiety disorders; Tobacco dependence; Left frontal lobe epilepsy 01/06/2020 Office Visit Psychiatry 01/06/2020 Travel Kiersten Grover RNsubstation maintenance technician (Dilantin 100 mg ap proved ) 12/05/2019 Telephone Neurology from Last 3 Months Family History Medical History Relation Name Comments Blood Clots Mother Relation Name Status Comments Father Mother Alive Social History Date Tobacco Use Types Packs/Day Years Used Current Every Day Smoker Cigarettes 2 37 Smokeless Tobacco: Former Chew User Tobacco Cessation: Ready to Quit: No; Co unseling Given: Yes Comments: Continues 1.5 PPD, is planning on coming down Drinks/Week oz/Week Comments Alcohol Use 0 Standard drinks or equivalent 0.0 No Sex Assigned at Date Recorded Not on file Industry Job Start Date Occupation Not on file Not on file Not on file Travel End Travel History Travel Start No recent travel history available. Last Filed Vital Signs Reading Time Taken Comments Vital Sign 106/73 01/06/2020 10:01 AM CDT Blood Pressure 70 01/06/2020 10:01 AM CDT Pulse 36.3 C (97.3 F) 02/28/2017 2:14 PM CDT Temperature 15 02/25/2016 11:02 AM CDT Respiratory Rate 97% 10/16/2015 1:32 PM LEAN MANUFACTURING ENGINEER Oxygen Saturation - - Inhaled Oxygen Concentration 70.3 kg (155 lb) 09/20/2019 2:39 PM LEAN MANUFACTURING ENGINEER Weight 182.9 cm (6') 09/20/2019 2:39 PM LEAN MANUFACTURING ENGINEER Height 21.02 09/20/2019 2:39 PM LEAN MANUFACTURING ENGINEER Body Mass Index Plan of Treatment Health Maintenance Due Date Last Done Comments HIV SCREENING 1976 DTAP/TDAP VACCINES (1 - 12/08/1979 Tdap) HEPATITIS C SCREENING 12/08/1979 PHYSICAL (COMPREHENSIVE) 12/08/1979 EXAM COLORECTAL CANCER 12/08/2011 SCREENING SHINGLES RECOMBINANT 12/08/2011 VACCINE (1 of 2) INFLUENZA VACCINE 05/07/2020 06/04/2008 Results Not on filefrom Last 3 Months Insurance Type Payer Benefit Subscriber ID Effective Phone Address Plan / Dates Group Medicaid [facility] MEDICA[facility] xxxxxxxxxxx 2012-P [place] (Home) [address] [place] [address] Advance Directives 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
--- OUTSIDE RECORDS SUMMARY | 2020-03-06 20:35 | XMS REPORT | Encounter Summary ---
Author Author [facility] Organization [facility] Address Unknown Phone Unavailable Care Team Providers Care Cash Register Balancer Name Role Phone Self, James ADKINS PCP Reason for Visit * Reason Comments Medication Refill Schizophrenia * (Routine) Referred By Contact Referred To Contact Status Reason Specialty Diagnoses / Procedures Shahla Grewal MD [address] [place] [address] Incomplete Psychiatry Encounter Details Care Team Description Date Type Department Shahla Grewal MD [address] [place], [place] [id number] Jaciel Villalba MD [address] [place], [place] [phone] Anxiety disorder, unspecified type (Prim ever Dx); Schizophrenia, paranoid type (HCC) 10/01/2019 Office Visit [facility] [address] [place] [address] Social History Date Tobacco Use Types Packs/Day Years Used Current Every Day Smoker Cigarettes 2 37 Smokeless Tobacco: Former Chew User Comments: Continues 1.5 PPD, is planning on coming down Drinks/Week oz/Week Comments Alcohol Use 0 Standard drinks or equivalent 0.0 No Sex Assigned at Date Recorded Not on file Industry Job Start Date Occupation Not on file Not on file Not on file Travel End Travel History Travel Start No recent travel history available. documented as of this encounter Progress Notes * Jaciel Villalba MD - 10/01/2019 12:30 PM DELIVERY NURSE Subjective: Jose Yang is a 57 y.o. male with a history of stage IV lung cancer with mets to the brain and seizure disorder who presents for follow up in psychiatry clinic for follow up for paranoid schizophrenia . He was last seen in clinic on 02/14/19 at which time mirtazapine was increased from 7.5 mg to 15 mg for appetite. He was continued on olanzapine 10 mg qhs for symptoms of schizoph charmaine. Today patient is here for medication refill. He stated that he has been doing we ll. He reported that he has been getting immunotherapy, which seems to be helpin g currently. He recently had an episode of pneumonia, but he is doing better now . He reported that he has been having intrusive thoughts with some paranoia. Has been having difficulty with sleep also. He denied any SI/HI, he is hopefull. De nied any current anxiety symptoms. Social history update: As above. Substance use history: Denies any recent alcohol use. States when he was in the jail he had stopped smoking cigarettes, but when he got out of the [facility], he immediately started smoking again. He is not interested in stopping smoking. Review of Systems Constitutional: Positive for appetite change and fatigue. Gastrointestinal: Negative for diarrhea, nausea and vomiting. Neurological: Negative for tremors and headaches. Psychiatric/Behavioral: Negative for hallucinations and suicidal ideas. Objective: ALPRAZolam (XANAX) 0.25 mg tablet Take 1 tablet by mouth three times daily a s needed. atorvastatin (LIPITOR) 40 mg tablet Take 40 mg by mouth daily. CYCLOBENZAPRINE HCL (FLEXERIL PO) Take by mouth. DILANTIN EXTENDED 100 mg capsule Take two capsules by mouth twice daily. gabapentin (NEURONTIN) 300 mg capsule Take 300 mg by mouth every 8 hours. HYDROcodone/acetaminophen(+) (LORTAB, NORCO) 10/325 mg tablet Take 1 Tab by mouth every 4 hours as needed For Pain mirtazapine (REMERON) 15 mg tablet Take one tablet by mouth at bedtime daily . OLANZapine (ZYPREXA) 10 mg tablet Take one tablet by mouth at bedtime daily for 90 days. Take with 5mg tablet for total daily dose 15mg. OLANZapine (ZYPREXA) 5 mg tablet Take one tablet by mouth at bedtime daily. Take with 10mg tablet for total daily dose 15mg. oxyCODONE SR (OXYCONTIN) 10 mg ER tablet Take 10 mg by mouth every 12 hours senna (SENOKOT) 8.6 mg tablet Take 2 Tabs by mouth at bedtime as needed for Constipation. There were no vitals filed for this visit. There is no height or weight on file to calculate BMI. Physical Exam Psychiatric: Comments: MENTAL STATUS EXAMINATION General/Constitutional: appears stated age, dressed appropriately, good hygiene Eye Contact: good Behavior: Calm, cooperative; appropriate for conversation Speech: RRR with normal volume and tone. Good articulation Mood: "getting better" Affect: euthymic ; mood congruent Thought Process: Gorin. Thought Content: denies SI, HI. Minor paranoid ideation. No evidence of delusion s Perception: Denies AVH Associations: Intact Insight/Judgment: fair/fair Physical Exam: Gait: Ambulates slowly with walker. Assessment and Plan: Jose Yang is a 58 y.o. male with a history of stage IV lung cancer with mets to the brain and seizure disorder who presents for follow up in psychiatry clinic for follow up for paranoid schizophrenia He continues on all current medications without side effects. Appetite still remains poor, but likel y secondary to his metastatic cancer rather than related to mood. Today patient engaged with supportive psychotherapy. Discussed his cancer diagnosis, previous accomplishments and goals for the future. Patient is content with thoughts of de ath and feels as though he lives a good life. His most immediate goal is getting back to his apartment and he is waiting for clearance from his PCP. He is overa ll in good spirits. DSM5 DIAGNOSES: - Schizophrenia - Unspecified anxiety disorder - Tobacco use disorder - PLAN: - Provided supportive psychotherapy. - increase olanzapine to 15 mg po qhs - AIMS:0 - Reviewed Lipid Panel from 10/08; Reviewed Hba1c from 08/13/2018 reviewed and with in normal limits - Continue Mirtazapine 15 mg for appetite. - Primary care manages patient's xanax. Would generally try to avoid given he is also taking opioids. - Patient would like to begin psychotherapy. Will plan to start seeing patient o nce a month for therapy. - Have patient sign JAQUELINE. Would like to speak with home health nurse regarding dee quiroga's level of functioning in current living situation. - Continued to recommend smoking cessation. RTC in one month for supportive psychotherapy. VERY NURSE documented in this encounter Plan of Treatment Order Schedule Name Type Priority Associated Diag noses Expected: 10/01/2019, Expires: 1 HEMOGLOBIN A1C Lab Routine Schizophrenia, paranoid type (HCC) Expected: 10/01/2019, Expires: 1 LIPID PROFILE Lab Routine Schizophrenia, paranoid type (HCC) documented as of this encounter Visit Diagnoses Diagnosis Schizophrenia, paranoid type (HCC) Paranoid schizophrenia, unspecified con dition Anxiety disorder, unspecified type documented in this encounter
--- OUTSIDE RECORDS SUMMARY | 2020-03-06 20:35 | XMS REPORT | Encounter Summary ---
Author Author [facility] Organization [facility] Address Unknown Phone Unavailable Care Team Providers Care Manager French Name Role Phone Self, James ADKINS PCP Reason for Visit * Reason Comments Prior Authorization Dilantin 100 mg approved Encounter Details Care Team Description Date Type Department Kiersten Grover RNelectrician helper powerhouse (Dilantin 100 mg ap proved ) 12/05/2019 Telephone [facility] [address] [place] [address] Social History Date Tobacco Use Types Packs/Day [...] history available. documented as of this encounter Miscellaneous Notes * Telephone Encounter - Vero Grover RN - 12/05/2019 4:55 PM CDT 11/25/19 Dilantin 100 mg approved for coverage by [facility] jaspreet. The drug is approved rick the coverage until 12/01/20 Noted Form scanned in pt's chart Vero Grover RN documented in this encounter Plan of Treatment Not on filedocumented as of this encounter Visit Diagnoses Not on filedocumented in this encounter
--- OUTSIDE RECORDS SUMMARY | 2020-03-06 20:35 | XMS REPORT | Encounter Summary ---
Author Author [facility] Organization [facility] Address Unknown Phone Unavailable Care Team Providers Care Ginning Operator Name Role Phone Self, James ADKINS PCP Reason for Visit * Reason Comments Seizure seizure free * (Routine) Referred By Contact Referred To Contact Status Reason Specialty Diagnoses / Procedures Incomplete Encounter Details Care Team Description [place] [address] [employer] [address] [place] [address] [phone] Left frontal lobe epilepsy (Primary Dx) 09/20/2019 Office Visit [facility] [address] [facility] [address] [place] [address] Social History Date Tobacco Use Types Packs/Day [...] history available. documented as of this encounter Last Filed Vital Signs Reading Time Taken Comments Vital Sign 102/72 09/20/2019 2:39 PM AIX ARCHITECT Blood Pressure 99 09/20/2019 2:39 PM AIX ARCHITECT Pulse - - Temperature - - Respiratory Rate - - Oxygen Saturation - - Inhaled Oxygen Concentration 70.3 kg (155 lb) 09/20/2019 2:39 PM AIX ARCHITECT Weight 182.9 cm (6') 09/20/2019 2:39 PM AIX ARCHITECT Height 21.02 09/20/2019 2:39 PM AIX ARCHITECT Body Mass Index documented in this encounter Progress Notes * Sadi Albright MD - 09/20/2019 3:15 PM AIX ARCHITECT Subjective: History of Present Illness Jose Yang is a 58 y.o. male who is here today for follow up of pre-exi sting left FLE, in the context of subsequent stage IV lung cancer with brain mes tasis. Since the last visit 02/28/2017, he has been lost to follow up. He's been seeing psychiatry regularly for his paranoid schizophrenia and counseling relat ed to his stage IV lung cancer. He now comes for follow up. He continues to be seizure free. MEDICATION SIDE EFFECTS: None REVIEW OF LABS/IMAGIN. [facility] EEG (08/10/12) - left and right frontal spike and wave most consistent with generalized epilepsy (report reviewed) 2. 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 [facility] C/A/P (08/29/16) - right upper lobe spiculated mass 3.4x3.5cm with spread to lymph nodes 4. [facility] brain (11/07/16) - 7.6x9.9mm nodule in the left posterior leslye sylvian region with surrounding vasogenic edema (report reviewed) Review of Systems The following systems were reviewed and were negative except as mentioned elsewh ere: Constitutional: No fever/chills/sweat, weight loss, tiredness/fatigue, or poor appetite Eyes: No reduced vision or blurriness, double vision, or droopy eyelids ENT: No hearing loss, ringing in the ears, vertigo, or hoarseness Cardiovascular: No chest pain/angina or palpitations Respiratory: No shortness of breath or cough Gastrointestinal: No abdominal pain, nausea and/or vomiting, diarrhea, or const ipation Genitourinary: No pain with urination, excessive urination, or incontinence Musculoskeletal: No back pain, neck pain, joint pain/redness/swelling, or myalg ia Skin: No jaundice, rash, or change in sweating Hematologic/ Lymphatic: No anemia, easy bruising, bleeding, or enlarged lymph n odes Endocrine: No temperature intolerance, polyuria, or polydipsia Allergic/ Immunological: No severe allergic reaction Psychiatric: No depression or anxiety Objective: ALPRAZolam (XANAX) 0.25 mg tablet Take [...] one tablet by mouth at bedtime daily. oxyCODONE SR (OXYCONTIN) 10 mg ER tablet Take 10 mg by mouth every 12 hours senna (SENOKOT) 8.6 mg tablet Take 2 Tabs by mouth at bedtime as needed for Constipation. Vitals: 09/20/19 1439 BP: 102/72 Pulse: 99 Weight: 70.3 kg (155 lb) Height: 182.9 cm (72") PainSc: Zero Body mass index is 21.02 kg/m. Physical Exam The patient is pleasant and cooperative with the exam. He is not in acute distr ess. The head is normocephalic without evidence of previous trauma. Oropharynx is clear. Lungs are clear to auscultation bilaterally. Cardiac exam reveals a regular rate and rhythm. Abdomen is soft with active bowel sounds. Pulses are preserved in all four extremities. Skin exhibits normal temperature and showed no rash. Mental Status: The patient is attentive, alert, and oriented to person, time and place. Language comprehension, naming, concentration, and recent/remote memory are intact. Speech is fluent. Cranial Nerves: Pupils are equal and reactive to light bilaterally. Visual fiel ds are intact to confrontation testing. There is no papilledema. Extraocular movements are intact without nystagmus. Facial sensation and strength are ade l. Hearing is intact to finger rub. Tongue and uvular are in the midline. Juanita ulder shrug is normal bilaterally. Motor: Muscle bulk is normal. Tone is normal in all extremities. Motor power i s normal in the bilateral deltoids, biceps, triceps, wrist extensors, cracking machine operator, ilio psoas, quads, hamstrings, gastrocnemius, and tibialis anterior. There is no pro nator drift or fixation. Tendon reflexes are 2+ diffusely. Babinski maneuver e licits flexor response bilaterally. Sensory: Sensation is intact to pinprick, vibration, and light touch. Cerebellar: Finger to nose test shows no dysmetria. Rapid alternating movement s are normal. There is no abnormal movement. Gait: Normal stance, arm swing, and stride length. Patient is able to toe, heel , and tandem walk. No ataxia is noted. Assessment and Plan: CLINICAL SUMMARY Mr. Yang is a pleasant 58 year old man with well controlled epilepsy. I wouldn 't make any changes. EPILEPSY CLASSIFICATION Epileptogenic zone: Left frontal lobe Seizure semiology: Right versive seizure --> right clonic seizure --> BTC Etiology: Unknown Comorbidities: Schizophrenia, left perisylvian lung cancer mets, osteoporosis with recent right pelvis fracture 2018 MANAGEMENT AND PLAN During the visit I discussed my impression, recommended diagnostic studies, prog nosis, risks and benefits of management, instructions for management, and import ance of compliance. After a discussion, the patient agrees with the plan. Zainab edgar time for this office visit was 15 minutes, of which 10 minutes was spent couns eling the patient in regarding his epilepsy. RECOMMENDATIONS 1. Continue Dilantin (brand) 200mg 2x daily The patient is instructed not to drive unless 6 months free of alteration of con sciousness, not to work in close proximity of machines with moving parts, not to swim unsupervised or to work at high places. The patient is to shower (without accumulation of water) instead of taking a bath if unsupervised. FOLLOWUP PLAN I plan to see the patient back for follow-up in approximately 12 months. The dee quiroga is instructed to contact us if there is an exacerbation of the seizures or any side effects from the antiepileptic medications. ARCHITECT documented in this encounter Plan of Treatment Not on filedocumented as of this encounter Visit Diagnoses Diagnosis Left frontal lobe epilepsy Localization-related (focal) (partial) epilepsy and epileptic syndromes with complex partial seizures, without mention of intractabl e epilepsy documented in this encounter
--- OUTSIDE RECORDS SUMMARY | 2020-03-06 20:35 | XMS REPORT | Encounter Summary ---
Author Author [facility] Organization [facility] Address Unknown Phone Unavailable Care Team Providers Care Supervisor Assembly Department Name Role Phone Self, James ADKINS PCP Encounter Details Care Team Description Date Type Department 01/06/2020 Travel Social History Date Tobacco Use Types Packs/Day [...] Travel Start No recent travel history available. Date Recorded COVID-19 Exposure Response 01/06/2020 10:04 AM CDT In the last month, have you been in contact with No / Unsure someone who was confirmed or suspected to have Coronavirus / COVID-19? documented as of this encounter Plan of Treatment Not on filedocumented as of this encounter Visit Diagnoses Not on filedocumented in this encounter
--- OUTSIDE RECORDS SUMMARY | 2020-03-06 20:35 | XMS REPORT | Encounter Summary ---
Author Author [facility] Organization [facility] Address Unknown Phone Unavailable Care Team Providers Care Abstract Searcher Name Role Phone Self, James ADKINS PCP Reason for Visit * Reason Comments Other Encounter Details Care Team Description Date Type Department Jaciel Villalba MD [address] [place] [address] Marycruz Santos MD [address] [facility] [address] [place] [address] Schizophrenia, paranoid type (HCC) (Prim ever Dx); Other specified anxiety disorders; Tobacco dependence; Left frontal lobe epilepsy 01/06/2020 Office Visit [facility] [address] [place] [address] Social History Date Tobacco Use [...] / COVID-19? documented as of this encounter Last Filed Vital Signs Reading Time Taken Comments Vital Sign 106/73 01/06/2020 10:01 AM CDT Blood Pressure 70 01/06/2020 10:01 AM CDT Pulse - - Temperature - - Respiratory Rate - - Oxygen Saturation - - Inhaled Oxygen Concentration - - Weight - - Height - - Body Mass Index documented in this encounter Patient Instructions * Patient Instructions* Marycruz Santos MD - 01/06/2020 10:30 AM CDT Continue Mirtazapine 30mg at bedtime. Continue Olanzapine 10mg at bedtime. documented in this encounter Progress Notes * Marycruz Santos MD - 01/06/2020 10:30 AM CDT Subjective: Mr. Yang presented to clinic to be seen. He notes "so far so good, no complain ts" when I asked how he is doing. Notes his weight is up and down, probably keerthi ghs about 150lb and his appetite is not very good. Mood: "I really don't know. I don't have a mood. I try not to get upset." He denies SI/HI, AH/VH when ask ed. He notes he gets upset when people tell him he is paranoid when he is just telling them what happened--like things coming up missing. He is working on his relationship with his mom. He notes everyday he gets up and just tries to think as positive as he can. PMH update: He was hospitalized in September at [facility] there in [place]- -sick from eating bad food and then started throwing up blood. Found to have pn eumonia so was there for a few days. All cleared up now. Smokes 1 1/2 ppd--not es he has tried to quit in the past and told himself he isn't going to try to qu it again. Smoking helps his anxiety. No alcohol or drugs. He lives in an apar tment in [place]. He has a nurse from [facility] who puts together his pil l box every 2 weeks. Denies any seizures. I finally found his pharmacy: [facility] [address], [place] [address]. Self filled his mirtazapine 30mg qhs and olanzapine 10mg qhs--last picke d up on 12/23 and he has refills. Jose Yang is a 59 y.o. male. Review of Systems Constitutional: Positive for appetite change. HENT: Positive for tinnitus. Respiratory: Positive for cough and shortness of breath. Psychiatric/Behavioral: Negative for dysphoric mood, hallucinations and suicidal ideas. The patient is nervous/anxious. Objective: ALPRAZolam (XANAX) 0.25 mg tablet Take 1 tablet by mouth three times daily a s needed. atorvastatin (LIPITOR) 40 mg tablet Take 40 mg by mouth daily. CYCLOBENZAPRINE HCL (FLEXERIL PO) Take by mouth. DILANTIN EXTENDED 100 mg capsule Take 2 capsules by mouth twice daily gabapentin (NEURONTIN) 300 mg capsule Take 300 mg by mouth every 8 hours. HYDROcodone/acetaminophen(+) (LORTAB, NORCO) 10/325 mg tablet Take 1 Tab by mouth every 4 hours as needed For Pain mirtazapine (REMERON) 30 mg tablet Take 30 mg by mouth at bedtime daily. OLANZapine (ZYPREXA) 10 mg tablet Take 10 mg by mouth at bedtime daily. oxyCODONE SR (OXYCONTIN) 10 mg ER tablet Take 10 mg by mouth every 12 hours senna (SENOKOT) 8.6 mg tablet Take 2 Tabs by mouth at bedtime as needed for Constipation. Vitals: 01/06/20 1001 BP: 106/73 Pulse: 70 There is no height or weight on file to calculate BMI. Physical Exam Psychiatric: Comments: General Appearance: Fair grooming, smells of tobacco, cooperative, good eye contact Speech: normal rate and volume, normal articulation with coherence and spontanei ty Thought Processes: linear and goal directed, normal rate of thoughts Associations: intact Thought Content: Denies SI/HI, AH/VH when asked. Mood and affect: "I don't have a mood", affect is calm, mood congruent Insight and Judgment: partial and fair Gait: normal Assessment and Plan: Schizophrenia Other specified anxiety disorder Tobacco dependence Continue mirtazapine 30mg qhs and olanzapine 10mg qhs. Both written by Dr. Mullen . RTC in 3 months. Call with any questions. * [place] - 01/06/2020 10:30 AM CDT Patient present in clinic for appointment. Two patient-identifers verified for H IPPA compliance. Patient consented to appointment. 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
--- OUTSIDE RECORDS SUMMARY | 2020-03-06 20:35 | XMS REPORT | Encounter Summary ---
Author Author [facility] Organization [facility] Address Unknown Phone Unavailable Care Team Providers Care Automatic Mounter Name Role Phone Self, James ADKINS PCP Reason for Visit * Reason Comments Medication Refill Encounter Details Care Team Description [place] [address] [facility] [address] [place] [address] [phone] 11/29/2019 Refill [facility] [address] [facility] [address] [place] [address] Social History Date Tobacco Use Types Packs/Day [...] history available. documented as of this encounter Plan of Treatment Not on filedocumented as of this encounter Visit Diagnoses Not on filedocumented in this encounter
--- OUTSIDE RECORDS SUMMARY | 2020-03-06 20:35 | XMS REPORT | Encounter Summary ---
Author Author [facility] Organization [facility] Address Unknown Phone Unavailable Care Team Providers Care Grader Patrol Name Role Phone Self, James ADKINS PCP Reason for Visit * Reason Comments Prior Authorization Encounter Details Care Team Description Date Type Department Jaciel Villalba MD [address] [place] [address] Prior Authorization 10/01/2019 Telephone [facility] [address] [place] [address] Social History Date Tobacco Use [...] encounter Miscellaneous Notes * Telephone Encounter - [place] - 10/01/2019 1:22 PM [employer] required for Olanzapine as written, orders adjusted to maintain goal dose and comply with quantity restrictions per protocol. [employer] documented in this encounter Plan of Treatment Not on filedocumented as of this encounter Visit Diagnoses Diagnosis Schizophrenia, paranoid type (HCC) Paranoid schizophrenia, unspecified con dition documented in this encounter
--- OUTSIDE RECORDS SUMMARY | 2020-03-06 20:35 | XMS REPORT | Encounter Summary ---
Author Author [facility] Organization [facility] Address Unknown Phone Unavailable Care Team Providers Care Design Director Name Role Phone Self, James ADKINS PCP Reason for Visit * Reason Comments Medication Question Encounter Details Care Team Description Date Type Department Marycruz Santos MD [address] [facility] [place] [address] [place] [address] Medication Question 02/10/2020 Telephone [facility] [address] [place] [address] Social History Date Tobacco Use [...] encounter Miscellaneous Notes * Telephone Encounter - Megan Murray LPN - 02/10/2020 10:27 AM CDT Elena with [facility] called clinic requesting that patient's progress not ed from patient's EMILY on 01/06/20 be sent via fax to patient's PCP at #. Fax sent at given fax number with confirmed receipt. documented in this encounter Plan of Treatment Not on filedocumented as of this encounter Visit Diagnoses Not on filedocumented in this encounter
--- OUTSIDE RECORDS SUMMARY | 2020-03-06 20:38 | XMS REPORT | Continuity of Care Document ---
Author Organization Unknown Address Unknown Phone Unavailable Allergies Active Description Code Type Severity Reaction Onset Reported/Identified Relationship to Patient Clinical Status Yes nitroglycerin [id number] Elvin g Allergy Unknown N/A 04/14/2016 Yes morphine [id number] Drug Allergy Mild nausea 01/15/2019 Medications There is no data. 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, CIGARETTES, UNCOMPL GARO QUEZADA MD, Ot G40.9 09 EPILEPSY, UNSP, NOT INTRACTABLE, WITHOUT GARO QUEZADA MD, Ot I25.1 0 ATHSCL HEART DISEASE OF [place] CORONARY GARO QUEZADA MD, Ot I25.2 OLD MYOCARDIAL INFARCTION GARO QUEZADA MD Ot Z51.1 1 ENCOUNTER FOR ANTINEOPLASTIC CHEMOTHERAP GARO QUEZADA MD Ot Z79.8 2 DETENTION (CURRENT) USE OF ASPIRIN GARO QUEZADA MD, Ot Z79.8 99 OTHER SENIOR VICE PRESIDENT AND CHIEF INFORMATION OFFICER (CURRENT) DRUG THERAPY GARO QUEZADA MD, Ot Z93.3 COLOSTOMY STATUS VALENTIN MEANS Ot C34.11 MALIGNANT NEOPLASM OF UPPER LOBE, RIGHT VALENTIN MEANS Ot C79.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 VALENTIN MEANS Ot C79.71 SECONDARY MALIGNANT NEOPLASM OF RIGHT AD MIGUELANGEL, VALENTIN Adrián Ot E83.42 HYPOMAGNESEMIA MIGUELANGEL NIKOLEDANK Adrián Ot F17.210 NICOTINE DEPENDENCE, CIGARETTES, UNCOMPL VALENTIN MEANS Adrián Ot G40.909 EPILEPSY, UNSP, NOT INTRACTABLE, WITHOUT MIGUELANGEL VALENTIN Sampson Ot I25.10 ATHSCL HEART DISEASE OF [place] CORONARY VALENTIN MEANS Adrián Ot I25.2 OLD MYOCARDIAL INFARCTION VALENTIN MEANS Adrián Ot Z51.11 ENCOUNTER FOR ANTINEOPLASTIC CHEMOTHERAP VALENTIN MEANS Adrián Ot Z79.82 SENIOR VICE PRESIDENT AND CHIEF INFORMATION OFFICER (CURRENT) USE OF ASPIRIN MIGUELANGEL VALENTIN Sampson Ot Z79.899 OTHER SENIOR VICE PRESIDENT AND CHIEF INFORMATION OFFICER (CURRENT) DRUG THERAPY MIGUELANGEL VALENTIN Sampson Ot Z93.3 COLOSTOMY STATUS 07/06/1056 TRU ADKINS, JIM Law Ot C34.11 MALIGNANT NEOPLASM OF UPPER LOBE, RIGHT 07/06/1056 JIM OTT MD Ot F17.210 NICOTINE DEPENDENCE, CIGARETTES, UNCOMPL 07/06/1056 JIM OTT MD Ot G40.909 EPILEPSY, UNSP, NOT INTRACTABLE, WITHOUT 07/06/1056 JIM OTT MD Ot I25.10 ATHSCL HEART DISEASE OF [place] CORONARY 07/06/1056 JIM OTT MD Ot I25.2 OLD MYOCARDIAL INFARCTION 07/06/1056 TRU ADKINS, JIM Law Ot I73.89 OTHER SPECIFIED PERIPHERAL VASCULAR DISE 07/06/1056 TRU ADKINS, JIM Law Ot R63.4 ABNORMAL WEIGHT LOSS 07/06/1056 JIM OTT MD Ot Z45.2 ENCOUNTER FOR ADJUSTMENT AND MANAGEMENT 07/06/1056 JIM OTT MD Ot Z51.11 ENCOUNTER FOR ANTINEOPLASTIC CHEMOTHERAP 07/06/1437 GARO QUEZADA MD, Ot C34. 11 MALIGNANT NEOPLASM OF UPPER LOBE, RIGHT 07/06/1437 GARO QUEZADA MD Ot F17.210 NICOTINE DEPENDENCE, CIGARETTES, UNCOMPL 07/06/1437 GARO QUEZADA MD Ot G40.909 EPILEPSY, UNSP, NOT INTRACTABLE, WITHOUT 07/06/1437 GARO QUEZADA MD Ot H53. 2 DIPLOPIA 07/06/1437 GARO QUEZADA MD Ot I25. 10 ATHSCL HEART DISEASE OF [place] CORONARY 07/06/1437 GARO QUEZADA MD Ot I25. 2 OLD MYOCARDIAL INFARCTION 07/06/1437 GARO QUEZADA MD Ot Z51. 11 ENCOUNTER FOR ANTINEOPLASTIC CHEMOTHERAP 07/06/1437 GARO QUEZADA MD Ot Z79.899 OTHER DETENTION (CURRENT) DRUG THERAPY 07/06/1528 JIMY ROBERTSON MD Ot C34.11 MALIGNANT NEOPLASM OF UPPER LOBE, RIGHT 07/06/1528 JIMY ROBERTSON MD Ot F17.210 NICOTINE DEPENDENCE, CIGARETTES, UNCOMPL 07/06/1528 JIMY ROBERTSON MD Ot G40.909 EPILEPSY, UNSP, NOT INTRACTABLE, WITHOUT 07/06/1528 JIMY ROBERTSON MD Ot I25.10 ATHSCL HEART DISEASE OF [place] CORONARY 07/06/1528 JIMY ROBERTSON MD Ot I25.2 OLD MYOCARDIAL INFARCTION 07/06/1528 JIMY ROBERTSON MD Ot Z51.11 ENCOUNTER FOR ANTINEOPLASTIC CHEMOTHERAP 07/06/1528 JIMY ROBERTSON MD Ot Z79.899 OTHER DETENTION (CURRENT) DRUG THERAPY 12/28/2015 JIM OTT MD Ot C34.11 MALIGNANT NEOPLASM OF UPPER LOBE, RIGHT 12/28/2015 JIM OTT MD Ot F17.210 NICOTINE DEPENDENCE, CIGARETTES, UNCOMPL 12/28/2015 JIM OTT MD Ot G40.909 EPILEPSY, UNSP, NOT INTRACTABLE, WITHOUT 12/28/2015 JIM OTT MD Ot I25.10 ATHSCL HEART DISEASE OF [place] CORONARY 12/28/2015 JIM OTT MD Ot I25.2 OLD MYOCARDIAL INFARCTION 12/28/2015 JIM OTT MD Ot I73.89 OTHER SPECIFIED PERIPHERAL VASCULAR DISE 12/28/2015 JIM OTT MD Ot R63.4 ABNORMAL WEIGHT LOSS 01/25/2016 JIM OTT MD Ot C34.11 MALIGNANT NEOPLASM OF UPPER LOBE, RIGHT 01/25/2016 JIM OTT MD Ot F17.210 NICOTINE DEPENDENCE, CIGARETTES, UNCOMPL 01/25/2016 JIM OTT MD Ot G40.909 EPILEPSY, UNSP, NOT INTRACTABLE, WITHOUT 01/25/2016 JIM OTT MD Ot I25.10 ATHSCL HEART DISEASE OF [place] CORONARY 01/25/2016 JIM OTT MD Ot I25.2 OLD MYOCARDIAL INFARCTION 01/25/2016 JIM OTT MD Ot I73.89 OTHER SPECIFIED PERIPHERAL VASCULAR DISE 01/25/2016 JIM OTT MD Ot R63.4 ABNORMAL WEIGHT LOSS 03/13/2016 JIM OTT MD Ot C34.11 MALIGNANT NEOPLASM OF UPPER LOBE, RIGHT 03/13/2016 JIM OTT MD Ot F17.210 NICOTINE DEPENDENCE, CIGARETTES, UNCOMPL 03/13/2016 JIM OTT MD Ot G40.909 EPILEPSY, UNSP, NOT INTRACTABLE, WITHOUT 03/13/2016 JIM OTT MD Ot I25.10 ATHSCL HEART DISEASE OF [place] CORONARY 03/13/2016 JIM OTT MD Ot I25.2 OLD MYOCARDIAL INFARCTION 03/13/2016 JIM OTT MD Ot I73.89 OTHER SPECIFIED PERIPHERAL VASCULAR DISE 03/13/2016 JIM OTT MD Ot R63.4 ABNORMAL WEIGHT LOSS 03/13/2016 JIM OTT MD Ot Z45.2 ENCOUNTER FOR ADJUSTMENT AND MANAGEMENT 03/13/2016 JIM OTT MD Ot Z51.0 ENCOUNTER FOR ANTINEOPLASTIC RADIATION T 03/24/2016 JIM OTT MD Ot C34.11 MALIGNANT NEOPLASM OF UPPER LOBE, RIGHT 03/24/2016 JIM OTT MD Ot F17.210 NICOTINE DEPENDENCE, CIGARETTES, UNCOMPL 03/24/2016 JIM OTT MD Ot G40.909 EPILEPSY, UNSP, NOT INTRACTABLE, WITHOUT 03/24/2016 JIM OTT MD Ot I25.10 ATHSCL HEART DISEASE OF [place] CORONARY 03/24/2016 JIM OTT MD Ot I25.2 OLD MYOCARDIAL INFARCTION 03/24/2016 JIM OTT MD Ot I73.89 OTHER SPECIFIED PERIPHERAL VASCULAR DISE 03/24/2016 JIM OTT MD Ot R63.4 ABNORMAL WEIGHT LOSS 04/14/2016 JIM OTT MD Ot C34.11 MALIGNANT NEOPLASM OF UPPER LOBE, RIGHT 04/14/2016 JIM OTT MD Ot F17.210 NICOTINE DEPENDENCE, CIGARETTES, UNCOMPL 04/14/2016 JIM OTT MD Ot G40.909 EPILEPSY, UNSP, NOT INTRACTABLE, WITHOUT 04/14/2016 JIM OTT MD Ot I25.10 ATHSCL HEART DISEASE OF [place] CORONARY 04/14/2016 JIM OTT MD Ot I25.2 OLD MYOCARDIAL INFARCTION 04/14/2016 JIM OTT MD Ot I73.89 OTHER SPECIFIED PERIPHERAL VASCULAR DISE 04/14/2016 JIM OTT MD Ot R63.4 ABNORMAL WEIGHT LOSS 04/14/2016 JIM OTT MD Ot Z45.2 ENCOUNTER FOR ADJUSTMENT AND MANAGEMENT 04/14/2016 JIM OTT MD Ot C34.11 MALIGNANT NEOPLASM OF UPPER LOBE, RIGHT 04/14/2016 JIM OTT MD Ot F17.210 NICOTINE DEPENDENCE, CIGARETTES, UNCOMPL 04/14/2016 JIM OTT MD Ot G40.909 EPILEPSY, UNSP, NOT INTRACTABLE, WITHOUT 04/14/2016 JIM OTT MD Ot I25.10 ATHSCL HEART DISEASE OF [place] CORONARY 04/14/2016 JIM OTT MD Ot I25.2 OLD MYOCARDIAL INFARCTION 04/14/2016 JIM OTT MD Ot I73.89 OTHER SPECIFIED PERIPHERAL VASCULAR DISE 04/14/2016 JIM OTT MD Ot R63.4 ABNORMAL WEIGHT LOSS 04/14/2016 JIM OTT MD Ot Z45.2 ENCOUNTER FOR ADJUSTMENT AND MANAGEMENT 04/28/2016 JIM OTT MD Ot C34.11 MALIGNANT NEOPLASM OF UPPER LOBE, RIGHT 04/28/2016 JIM OTT MD Ot F17.210 NICOTINE DEPENDENCE, CIGARETTES, UNCOMPL 04/28/2016 JIM OTT MD Ot G40.909 EPILEPSY, UNSP, NOT INTRACTABLE, WITHOUT 04/28/2016 JIM OTT MD Ot I25.10 ATHSCL HEART DISEASE OF [place] CORONARY 04/28/2016 JIM OTT MD Ot I25.2 OLD MYOCARDIAL INFARCTION 04/28/2016 JIM OTT MD Ot I73.89 OTHER SPECIFIED PERIPHERAL VASCULAR DISE 04/28/2016 JIM OTT MD Ot R63.4 ABNORMAL WEIGHT LOSS 04/28/2016 JIM OTT MD Ot Z45.2 ENCOUNTER FOR ADJUSTMENT AND MANAGEMENT 05/09/2016 JIM OTT MD Ot C34.11 MALIGNANT NEOPLASM OF UPPER LOBE, RIGHT 05/09/2016 JIM OTT MD Ot F17.210 NICOTINE DEPENDENCE, CIGARETTES, UNCOMPL 05/09/2016 JIM OTT MD Ot G40.909 EPILEPSY, UNSP, NOT INTRACTABLE, WITHOUT 05/09/2016 JIM OTT MD Ot I25.10 ATHSCL HEART DISEASE OF [place] CORONARY 05/09/2016 JIM OTT MD Ot I25.2 OLD MYOCARDIAL INFARCTION 05/09/2016 JIM OTT MD Ot I73.89 OTHER SPECIFIED PERIPHERAL VASCULAR DISE 05/09/2016 JIM OTT MD Ot R63.4 ABNORMAL WEIGHT LOSS 05/09/2016 JIM OTT MD Ot Z45.2 ENCOUNTER FOR ADJUSTMENT AND MANAGEMENT 05/09/2016 JIM OTT MD Ot Z51.11 ENCOUNTER FOR ANTINEOPLASTIC CHEMOTHERAP 05/25/2016 JIM OTT MD Ot C34.11 MALIGNANT NEOPLASM OF UPPER LOBE, RIGHT 05/25/2016 JIM OTT MD Ot F17.210 NICOTINE DEPENDENCE, CIGARETTES, UNCOMPL 05/25/2016 JIM OTT MD Ot G40.909 EPILEPSY, UNSP, NOT INTRACTABLE, WITHOUT 05/25/2016 JIM OTT MD Ot I25.10 ATHSCL HEART DISEASE OF [place] CORONARY 05/25/2016 JIM OTT MD, Ot I25.2 OLD MYOCARDIAL INFARCTION 05/25/2016 JIM OTT MD Ot I73.89 OTHER SPECIFIED PERIPHERAL VASCULAR DISE 05/25/2016 JIM OTT MD, Ot R63.4 ABNORMAL WEIGHT LOSS 05/25/2016 JIM OTT MD Ot Z45.2 ENCOUNTER FOR ADJUSTMENT AND MANAGEMENT 05/31/2016 JIM OTT MD, Ot C34.11 MALIGNANT NEOPLASM OF UPPER LOBE, RIGHT 05/31/2016 JIM OTT MD Ot F17.210 NICOTINE DEPENDENCE, CIGARETTES, UNCOMPL 05/31/2016 JIM OTT MD Ot G40.909 EPILEPSY, UNSP, NOT INTRACTABLE, WITHOUT 05/31/2016 JIM OTT MD Ot I25.10 ATHSCL HEART DISEASE OF [place] CORONARY 05/31/2016 JIM OTT MD Ot I25.2 OLD MYOCARDIAL INFARCTION 05/31/2016 JIM OTT MD Ot I73.89 OTHER SPECIFIED PERIPHERAL VASCULAR DISE 05/31/2016 JIM OTT MD Ot R63.4 ABNORMAL WEIGHT LOSS 05/31/2016 JIM OTT MD Ot Z79.899 OTHER DETENTION (CURRENT) DRUG THERAPY 06/23/2016 JIM OTT MD Ot C34.11 MALIGNANT NEOPLASM OF UPPER LOBE, RIGHT 06/23/2016 JIM OTT MD Ot F17.210 NICOTINE DEPENDENCE, CIGARETTES, UNCOMPL 06/23/2016 JIM OTT MD Ot G40.909 EPILEPSY, UNSP, NOT INTRACTABLE, WITHOUT 06/23/2016 JIM OTT MD Ot I25.10 ATHSCL HEART DISEASE OF [place] CORONARY 06/23/2016 JIM OTT MD Ot I25.2 OLD MYOCARDIAL INFARCTION 06/23/2016 JIM OTT MD Ot I73.89 OTHER SPECIFIED PERIPHERAL VASCULAR DISE 06/23/2016 JIM OTT MD Ot R63.4 ABNORMAL WEIGHT LOSS 06/23/2016 JIM OTT MD Ot Z79.899 OTHER SENIOR VICE PRESIDENT AND CHIEF INFORMATION OFFICER (CURRENT) DRUG THERAPY 08/22/2016 JIM OTT MD Ot C34.11 MALIGNANT NEOPLASM OF UPPER LOBE, RIGHT 08/22/2016 JIM OTT MD Ot F17.210 NICOTINE DEPENDENCE, CIGARETTES, UNCOMPL 08/22/2016 JIM OTT MD Ot G40.909 EPILEPSY, UNSP, NOT INTRACTABLE, WITHOUT 08/22/2016 JIM OTT MD Ot I25.10 ATHSCL HEART DISEASE OF [place] CORONARY 08/22/2016 JIM OTT MD Ot I25.2 OLD MYOCARDIAL INFARCTION 08/22/2016 JIM OTT MD Ot I73.89 OTHER SPECIFIED PERIPHERAL VASCULAR DISE 08/22/2016 JIM OTT MD Ot R63.4 ABNORMAL WEIGHT LOSS 08/22/2016 JIM OTT MD Ot Z51.11 ENCOUNTER FOR ANTINEOPLASTIC CHEMOTHERAP 08/22/2016 JIM TOT MD Ot Z79.899 OTHER DETENTION (CURRENT) DRUG THERAPY 08/23/2016 JIM OTT MD Ot C34.11 MALIGNANT NEOPLASM OF UPPER LOBE, RIGHT 08/23/2016 JIM OTT MD Ot F17.210 NICOTINE DEPENDENCE, CIGARETTES, UNCOMPL 08/23/2016 JIM OTT MD Ot G40.909 EPILEPSY, UNSP, NOT INTRACTABLE, WITHOUT 08/23/2016 JIM OTT MD Ot I25.10 ATHSCL HEART DISEASE OF [place] CORONARY 08/23/2016 JIM OTT MD Ot I25.2 OLD MYOCARDIAL INFARCTION 08/23/2016 JIM OTT MD Ot I73.89 OTHER SPECIFIED PERIPHERAL VASCULAR DISE 08/23/2016 JIM OTT MD Ot R63.4 ABNORMAL WEIGHT LOSS 08/23/2016 JIM OTT MD Ot Z51.11 ENCOUNTER FOR ANTINEOPLASTIC CHEMOTHERAP 08/23/2016 JIM OTT MD Ot Z79.899 OTHER SENIOR VICE PRESIDENT AND CHIEF INFORMATION OFFICER (CURRENT) DRUG THERAPY 08/24/2016 JIM OTT MD Ot C34.11 MALIGNANT NEOPLASM OF UPPER LOBE, RIGHT 08/24/2016 JIM OTT MD Ot F17.210 NICOTINE DEPENDENCE, CIGARETTES, UNCOMPL 08/24/2016 JIM OTT MD Ot G40.909 EPILEPSY, UNSP, NOT INTRACTABLE, WITHOUT 08/24/2016 JIM OTT MD Ot I25.10 ATHSCL HEART DISEASE OF [place] CORONARY 08/24/2016 JIM OTT MD Ot I25.2 OLD MYOCARDIAL INFARCTION 08/24/2016 JIM OTT MD Ot I73.89 OTHER SPECIFIED PERIPHERAL VASCULAR DISE 08/24/2016 JIM OTT MD Ot R63.4 ABNORMAL WEIGHT LOSS 08/24/2016 JIM OTT MD Ot Z51.11 ENCOUNTER FOR ANTINEOPLASTIC CHEMOTHERAP 08/24/2016 JIM OTT MD Ot Z79.899 OTHER SENIOR VICE PRESIDENT AND CHIEF INFORMATION OFFICER (CURRENT) DRUG THERAPY 08/24/2016 JIM OTT MD Ot C34.11 MALIGNANT NEOPLASM OF UPPER LOBE, RIGHT 08/24/2016 JIM OTT MD Ot F17.210 NICOTINE DEPENDENCE, CIGARETTES, UNCOMPL 08/24/2016 JIM OTT MD Ot G40.909 EPILEPSY, UNSP, NOT INTRACTABLE, WITHOUT 08/24/2016 JIM OTT MD Ot I25.10 ATHSCL HEART DISEASE OF [place] CORONARY 08/24/2016 JIM OTT MD Ot I25.2 OLD MYOCARDIAL INFARCTION 08/24/2016 JIM OTT MD Ot I73.89 OTHER SPECIFIED PERIPHERAL VASCULAR DISE 08/24/2016 JIM OTT MD Ot R63.4 ABNORMAL WEIGHT LOSS 08/24/2016 JIM OTT MD Ot Z51.11 ENCOUNTER FOR ANTINEOPLASTIC CHEMOTHERAP 08/24/2016 JIM OTT MD Ot Z79.899 OTHER DETENTION (CURRENT) DRUG THERAPY 08/30/2016 JIM OTT MD Ot C34.11 MALIGNANT NEOPLASM OF UPPER LOBE, RIGHT 08/30/2016 JIM OTT MD Ot C79.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 09/06/2016 JIM OTT MD Ot C34.11 MALIGNANT NEOPLASM OF UPPER LOBE, RIGHT 09/06/2016 JIM OTT MD Ot F17.210 NICOTINE DEPENDENCE, CIGARETTES, UNCOMPL 09/06/2016 JIM OTT MD Ot G40.909 EPILEPSY, UNSP, NOT INTRACTABLE, WITHOUT 09/06/2016 JIM OTT MD Ot I25.10 ATHSCL HEART DISEASE OF [place] CORONARY 09/06/2016 JIM OTT MD Ot I25.2 OLD MYOCARDIAL INFARCTION 09/06/2016 JIM OTT MD Ot I73.89 OTHER SPECIFIED PERIPHERAL VASCULAR DISE 09/06/2016 JIM OTT MD Ot R63.4 ABNORMAL WEIGHT LOSS 09/06/2016 JIM OTT MD Ot Z51.11 ENCOUNTER FOR ANTINEOPLASTIC CHEMOTHERAP 09/06/2016 JIM OTT MD Ot Z79.899 OTHER SENIOR VICE PRESIDENT AND CHIEF INFORMATION OFFICER (CURRENT) DRUG THERAPY 09/13/2016 JIM OTT MD Ot C34.11 MALIGNANT NEOPLASM OF UPPER LOBE, RIGHT 09/13/2016 JIM OTT MD Ot C79.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 09/28/2016 JIM OTT MD Ot C34.11 MALIGNANT NEOPLASM OF UPPER LOBE, RIGHT 09/28/2016 JIM OTT MD Ot F17.210 NICOTINE DEPENDENCE, CIGARETTES, UNCOMPL 09/28/2016 JIM OTT MD Ot G40.909 EPILEPSY, UNSP, NOT INTRACTABLE, WITHOUT 09/28/2016 JIM OTT MD Ot I25.10 ATHSCL HEART DISEASE OF [place] CORONARY 09/28/2016 JIM OTT MD Ot I25.2 OLD MYOCARDIAL INFARCTION 09/28/2016 JIM OTT MD Ot I73.89 OTHER SPECIFIED PERIPHERAL VASCULAR DISE 09/28/2016 JIM OTT MD Ot R63.4 ABNORMAL WEIGHT LOSS 09/28/2016 JIM OTT MD Ot Z51.11 ENCOUNTER FOR ANTINEOPLASTIC CHEMOTHERAP 09/28/2016 JIM OTT MD Ot Z79.899 OTHER SENIOR VICE PRESIDENT AND CHIEF INFORMATION OFFICER (CURRENT) DRUG THERAPY 10/04/2016 JIM OTT MD Ot C34.11 MALIGNANT NEOPLASM OF UPPER LOBE, RIGHT 10/04/2016 JIM OTT MD Ot F17.210 NICOTINE DEPENDENCE, CIGARETTES, UNCOMPL 10/04/2016 JIM OTT MD Ot G40.909 EPILEPSY, UNSP, NOT INTRACTABLE, WITHOUT 10/04/2016 JIM OTT MD Ot I25.10 ATHSCL HEART DISEASE OF [place] CORONARY 10/04/2016 JIM OTT MD Ot I25.2 OLD MYOCARDIAL INFARCTION 10/04/2016 JIM OTT MD Ot I73.89 OTHER SPECIFIED PERIPHERAL VASCULAR DISE 10/04/2016 JIM OTT MD Ot R63.4 ABNORMAL WEIGHT LOSS 10/04/2016 JIM OTT MD Ot Z51.11 ENCOUNTER FOR ANTINEOPLASTIC CHEMOTHERAP 10/04/2016 JIM OTT MD Ot Z79.899 OTHER SENIOR VICE PRESIDENT AND CHIEF INFORMATION OFFICER (CURRENT) DRUG THERAPY 10/27/2016 JIM OTT MD, Ot C34.11 MALIGNANT NEOPLASM OF UPPER LOBE, RIGHT 10/27/2016 JIM OTT MD Ot F17.210 NICOTINE DEPENDENCE, CIGARETTES, UNCOMPL 10/27/2016 JIM OTT MD Ot G40.909 EPILEPSY, UNSP, NOT INTRACTABLE, WITHOUT 10/27/2016 JIM OTT MD Ot I25.10 ATHSCL HEART DISEASE OF [place] CORONARY 10/27/2016 JIM OTT MD Ot I25.2 OLD MYOCARDIAL INFARCTION 10/27/2016 JIM OTT MD Ot I73.89 OTHER SPECIFIED PERIPHERAL VASCULAR DISE 10/27/2016 JIM OTT MD, Ot R63.4 ABNORMAL WEIGHT LOSS 10/27/2016 JIM OTT MD Ot Z51.11 ENCOUNTER FOR ANTINEOPLASTIC CHEMOTHERAP 10/27/2016 JIM OTT MD, Ot Z79.899 OTHER SENIOR VICE PRESIDENT AND CHIEF INFORMATION OFFICER (CURRENT) DRUG THERAPY 10/27/2016 JIM OTT MD Ot C34.11 MALIGNANT NEOPLASM OF UPPER LOBE, RIGHT 10/27/2016 JIM OTT MD Ot C79.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 10/27/2016 JIM OTT MD Ot C34.11 MALIGNANT NEOPLASM OF UPPER LOBE, RIGHT 10/27/2016 JIM OTT MD Ot C79.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 10/27/2016 JIM OTT MD Ot Z72.0 TOBACCO USE 11/01/2016 JIM OTT MD Ot C34.11 MALIGNANT NEOPLASM OF UPPER LOBE, RIGHT 11/01/2016 JIM OTT MD Ot F17.210 NICOTINE DEPENDENCE, CIGARETTES, UNCOMPL 11/01/2016 JIM OTT MD Ot G40.909 EPILEPSY, UNSP, NOT INTRACTABLE, WITHOUT 11/01/2016 JIM OTT MD Ot I25.10 ATHSCL HEART DISEASE OF [place] CORONARY 11/01/2016 JIM OTT MD Ot I25.2 OLD MYOCARDIAL INFARCTION 11/01/2016 JIM OTT MD Ot I73.89 OTHER SPECIFIED PERIPHERAL VASCULAR DISE 11/01/2016 JIM OTT MD Ot R63.4 ABNORMAL WEIGHT LOSS 11/01/2016 JIM OTT MD, Ot Z51.11 ENCOUNTER FOR ANTINEOPLASTIC CHEMOTHERAP 11/01/2016 JIM OTT MD, Ot Z79.899 OTHER DETENTION (CURRENT) DRUG THERAPY 11/08/2016 JIM OTT MD, Ot C34.11 MALIGNANT NEOPLASM OF UPPER LOBE, RIGHT 11/08/2016 JIM OTT MD, Ot C79.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 11/09/2016 JIM OTT MD, Ot C34.11 MALIGNANT NEOPLASM OF UPPER LOBE, RIGHT 11/09/2016 JIM OTT MD, Ot F17.210 NICOTINE DEPENDENCE, CIGARETTES, UNCOMPL 11/09/2016 JIM OTT MD, Ot G40.909 EPILEPSY, UNSP, NOT INTRACTABLE, WITHOUT 11/09/2016 JIM OTT MD, Ot I25.10 ATHSCL HEART DISEASE OF [place] CORONARY 11/09/2016 IJM OTT MD, Ot I25.2 OLD MYOCARDIAL INFARCTION 11/09/2016 JIM OTT MD, Ot I73.89 OTHER SPECIFIED PERIPHERAL VASCULAR DISE 11/09/2016 JIM OTT MD, Ot R63.4 ABNORMAL WEIGHT LOSS 11/09/2016 JIM OTT MD, Ot Z51.11 ENCOUNTER FOR ANTINEOPLASTIC CHEMOTHERAP 11/09/2016 JIM OTT MD, Ot Z79.899 OTHER SENIOR VICE PRESIDENT AND CHIEF INFORMATION OFFICER (CURRENT) DRUG THERAPY 11/09/2016 JIM OTT MD, Ot C34.11 MALIGNANT NEOPLASM OF UPPER LOBE, RIGHT 11/09/2016 JIM OTT MD, Ot C79.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 11/09/2016 JIM OTT MD, Ot C34.11 MALIGNANT NEOPLASM OF UPPER LOBE, RIGHT 11/09/2016 JIM OTT MD, Ot C79.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 11/09/2016 JIM OTT MD, Ot Z72.0 TOBACCO USE 11/09/2016 JIM OTT MD, Ot C34.11 MALIGNANT NEOPLASM OF UPPER LOBE, RIGHT 11/09/2016 JIM OTT MD, Ot C79.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 11/11/2016 JIM OTT MD, Ot C34.11 MALIGNANT NEOPLASM OF UPPER LOBE, RIGHT 11/11/2016 JIM OTT MD, Ot C79.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 11/11/2016 JIM OTT MD, Ot Z72.0 TOBACCO USE 11/21/2016 TRU MD, JIM K Ot C34.11 MALIGNANT NEOPLASM OF UPPER LOBE, RIGHT 11/21/2016 JIM OTT MD Ot F17.210 NICOTINE DEPENDENCE, CIGARETTES, UNCOMPL 11/21/2016 JIM OTT MD Ot G40.909 EPILEPSY, UNSP, NOT INTRACTABLE, WITHOUT 11/21/2016 JIM OTT MD Ot I25.10 ATHSCL HEART DISEASE OF [place] CORONARY 11/21/2016 JIM OTT MD Ot I25.2 OLD MYOCARDIAL INFARCTION 11/21/2016 JIM OTT MD Ot I73.89 OTHER SPECIFIED PERIPHERAL VASCULAR DISE 11/21/2016 JIM OTT MD Ot R63.4 ABNORMAL WEIGHT LOSS 11/21/2016 JIM OTT MD Ot Z51.11 ENCOUNTER FOR ANTINEOPLASTIC CHEMOTHERAP 11/21/2016 JIM OTT MD Ot Z79.899 OTHER SENIOR VICE PRESIDENT AND CHIEF INFORMATION OFFICER (CURRENT) DRUG THERAPY 11/22/2016 JIM OTT MD, Ot C34.11 MALIGNANT NEOPLASM OF UPPER LOBE, RIGHT 11/22/2016 JIM OTT MD Ot F17.210 NICOTINE DEPENDENCE, CIGARETTES, UNCOMPL 11/22/2016 JIM OTT MD Ot G40.909 EPILEPSY, UNSP, NOT INTRACTABLE, WITHOUT 11/22/2016 JIM OTT MD Ot I25.10 ATHSCL HEART DISEASE OF [place] CORONARY 11/22/2016 JIM OTT MD Ot I25.2 OLD MYOCARDIAL INFARCTION 11/22/2016 JIM OTT MD Ot I73.89 OTHER SPECIFIED PERIPHERAL VASCULAR DISE 11/22/2016 JIM OTT MD Ot R63.4 ABNORMAL WEIGHT LOSS 11/22/2016 JIM OTT MD Ot Z51.11 ENCOUNTER FOR ANTINEOPLASTIC CHEMOTHERAP 11/22/2016 JIM OTT MD Ot Z79.899 OTHER SENIOR VICE PRESIDENT AND CHIEF INFORMATION OFFICER (CURRENT) DRUG THERAPY 11/24/2016 JIM OTT MD Ot C34.11 MALIGNANT NEOPLASM OF UPPER LOBE, RIGHT 11/24/2016 JIM OTT MD Ot C79.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 11/29/2016 JIM OTT MD Ot C34.11 MALIGNANT NEOPLASM OF UPPER LOBE, RIGHT 11/29/2016 JIM OTT MD Ot C79.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 11/29/2016 JIM OTT MD Ot C34.11 MALIGNANT NEOPLASM OF UPPER LOBE, RIGHT 11/29/2016 JIM OTT MD Ot C79.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 11/29/2016 JIM OTT MD Ot Z72.0 TOBACCO USE 11/29/2016 JIM OTT MD, Ot C34.11 MALIGNANT NEOPLASM OF UPPER LOBE, RIGHT 11/29/2016 JIM OTT MD, Ot C79.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 11/29/2016 JIM OTT MD, Ot C34.11 MALIGNANT NEOPLASM OF UPPER LOBE, RIGHT 11/29/2016 JIM OTT MD Ot F17.210 NICOTINE DEPENDENCE, CIGARETTES, UNCOMPL 11/29/2016 JIM OTT MD Ot G40.909 EPILEPSY, UNSP, NOT INTRACTABLE, WITHOUT 11/29/2016 JIM OTT MD Ot I25.10 ATHSCL HEART DISEASE OF [place] CORONARY 11/29/2016 JIM OTT MD Ot I25.2 OLD MYOCARDIAL INFARCTION 11/29/2016 JIM OTT MD Ot I73.89 OTHER SPECIFIED PERIPHERAL VASCULAR DISE 11/29/2016 JIM OTT MD Ot R63.4 ABNORMAL WEIGHT LOSS 11/29/2016 JIM OTT MD, Ot Z51.11 ENCOUNTER FOR ANTINEOPLASTIC CHEMOTHERAP 11/29/2016 JIM OTT MD, Ot Z79.899 OTHER DETENTION (CURRENT) DRUG THERAPY 12/12/2016 JIM OTT MD, Ot C34.11 MALIGNANT NEOPLASM OF UPPER LOBE, RIGHT 12/12/2016 JIM OTT MD, Ot F17.210 NICOTINE DEPENDENCE, CIGARETTES, UNCOMPL 12/12/2016 JIM OTT MD, Ot G40.909 EPILEPSY, UNSP, NOT INTRACTABLE, WITHOUT 12/12/2016 JIM OTT MD Ot I25.10 ATHSCL HEART DISEASE OF [place] CORONARY 12/12/2016 JIM OTT MD Ot I25.2 OLD MYOCARDIAL INFARCTION 12/12/2016 JIM OTT MD Ot I73.89 OTHER SPECIFIED PERIPHERAL VASCULAR DISE 12/12/2016 JIM OTT MD Ot R63.4 ABNORMAL WEIGHT LOSS 12/12/2016 JIM OTT MD Ot Z51.11 ENCOUNTER FOR ANTINEOPLASTIC CHEMOTHERAP 12/12/2016 JIM OTT MD Ot Z79.899 OTHER DETENTION (CURRENT) DRUG THERAPY 12/22/2016 JIM OTT MD, Ot C34.11 MALIGNANT NEOPLASM OF UPPER LOBE, RIGHT 12/22/2016 JIM OTT MD, Ot C79.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 12/22/2016 JIM OTT MD, Ot C34.11 MALIGNANT NEOPLASM OF UPPER LOBE, RIGHT 12/22/2016 JIM OTT MD, Ot C79.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 12/22/2016 JIM OTT MD, Ot Z72.0 TOBACCO USE 12/22/2016 JIM OTT MD, Ot C34.11 MALIGNANT NEOPLASM OF UPPER LOBE, RIGHT 12/22/2016 JIM OTT MD, Ot C79.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 12/22/2016 JIM OTT MD, Ot C34.11 MALIGNANT NEOPLASM OF UPPER LOBE, RIGHT 12/22/2016 JIM OTT MD Ot F17.210 NICOTINE DEPENDENCE, CIGARETTES, UNCOMPL 12/22/2016 JIM OTT MD, Ot G40.909 EPILEPSY, UNSP, NOT INTRACTABLE, WITHOUT 12/22/2016 JIM OTT MD Ot I25.10 ATHSCL HEART DISEASE OF [place] CORONARY 12/22/2016 JIM OTT MD, Ot I25.2 OLD MYOCARDIAL INFARCTION 12/22/2016 JIM OTT MD Ot I73.89 OTHER SPECIFIED PERIPHERAL VASCULAR DISE 12/22/2016 JIM OTT MD Ot R63.4 ABNORMAL WEIGHT LOSS 12/22/2016 JIM OTT MD, Ot Z51.11 ENCOUNTER FOR ANTINEOPLASTIC CHEMOTHERAP 12/22/2016 JIM OTT MD, Ot Z79.899 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 VICE PRESIDENT 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 OFFICER (CURRENT) DRUG THERAPY 12/23/2016 VIVIANA VERAS MD Z Ot R91.8 OTHER NONSPECIFIC ABNORMAL FINDING OF [place] 12/23/2016 EDA ADKINS VIVIANA Z Ot T82.524A DISPLACEMENT OF INFUSION CATHETER, INITI 12/23/2016 JIM OTT MD, Ot C34.11 MALIGNANT NEOPLASM OF UPPER LOBE, RIGHT 12/23/2016 JIM OTT MD, Ot C79.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 12/23/2016 JIM OTT MD Ot E27.9 DISORDER OF ADRENAL GLAND, UNSPECIFIED 12/26/2016 JIM OTT MD, Ot C34.11 MALIGNANT NEOPLASM OF UPPER LOBE, RIGHT 12/26/2016 JIM OTT MD, Ot F17.210 NICOTINE DEPENDENCE, CIGARETTES, UNCOMPL 12/26/2016 JIM OTT MD, Ot G40.909 EPILEPSY, UNSP, NOT INTRACTABLE, WITHOUT 12/26/2016 JIM OTT MD Ot I25.10 ATHSCL HEART DISEASE OF [place] CORONARY 12/26/2016 JIM OTT MD Ot I25.2 OLD MYOCARDIAL INFARCTION 12/26/2016 JIM OTT MD Ot I73.89 OTHER SPECIFIED PERIPHERAL VASCULAR DISE 12/26/2016 JIM OTT MD Ot R63.4 ABNORMAL WEIGHT LOSS 12/26/2016 JIM OTT MD Ot Z51.11 ENCOUNTER FOR ANTINEOPLASTIC CHEMOTHERAP 12/26/2016 JIM OTT MD, Ot Z79.899 OTHER DETENTION (CURRENT) DRUG THERAPY 01/05/2017 JIM OTT MD, Ot C34.11 MALIGNANT NEOPLASM OF UPPER LOBE, RIGHT 01/05/2017 JIM OTT MD Ot C79.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 01/05/2017 JIM OTT MD Ot E27.9 DISORDER OF ADRENAL GLAND, UNSPECIFIED 01/05/2017 EDA ADKINS, VIVIANA Z Ot R91.8 OTHER NONSPECIFIC ABNORMAL FINDING OF [place] 01/05/2017 VIVIANA VERAS MD Z Ot T82.524A DISPLACEMENT OF INFUSION CATHETER, INITI 02/27/2017 JIM OTT MD, Ot C34.11 MALIGNANT NEOPLASM OF UPPER LOBE, RIGHT 02/27/2017 JIM OTT MD Ot F17.210 NICOTINE DEPENDENCE, CIGARETTES, UNCOMPL 02/27/2017 JIM OTT MD Ot G40.909 EPILEPSY, UNSP, NOT INTRACTABLE, WITHOUT 02/27/2017 JIM OTT MD Ot I25.10 ATHSCL HEART DISEASE OF [place] CORONARY 02/27/2017 JIM OTT MD Ot I25.2 OLD MYOCARDIAL INFARCTION 02/27/2017 JIM OTT MD Ot I73.89 OTHER SPECIFIED PERIPHERAL VASCULAR DISE 02/27/2017 JIM OTT MD Ot R63.4 ABNORMAL WEIGHT LOSS 02/27/2017 JIM OTT MD Ot Z51.11 ENCOUNTER FOR ANTINEOPLASTIC CHEMOTHERAP 02/27/2017 JIM OTT MD Ot Z79.899 OTHER DETENTION (CURRENT) DRUG THERAPY 03/06/2017 GARO QUEZADA MD, Ot C34. 11 MALIGNANT NEOPLASM OF UPPER LOBE, RIGHT 03/06/2017 GARO QUEZADA MD, Ot F17.210 NICOTINE DEPENDENCE, CIGARETTES, UNCOMPL 03/06/2017 GARO QUEZADA MD, Ot G40.909 EPILEPSY, UNSP, NOT INTRACTABLE, WITHOUT 03/06/2017 GARO QUEZADA MD, Ot I25. 10 ATHSCL HEART DISEASE OF [place] CORONARY 03/06/2017 GARO QUEZADA MD Ot I25. 2 OLD MYOCARDIAL INFARCTION 03/06/2017 GARO QUEZADA MD Ot I73. 89 OTHER SPECIFIED PERIPHERAL VASCULAR DISE 03/06/2017 GARO QUEZADA MD Ot R63. 4 ABNORMAL WEIGHT LOSS 03/06/2017 GARO QUEZADA MD Ot Z51. 11 ENCOUNTER FOR ANTINEOPLASTIC CHEMOTHERAP 03/06/2017 GARO QUEZADA MD Ot Z79.899 OTHER DETENTION (CURRENT) DRUG THERAPY 03/07/2017 GARO QUEZADA MD Ot C34. 11 MALIGNANT NEOPLASM OF UPPER LOBE, RIGHT 03/07/2017 GARO QUEZADA MD Ot F17.210 NICOTINE DEPENDENCE, CIGARETTES, UNCOMPL 03/07/2017 GARO QUEZADA MD Ot G40.909 EPILEPSY, UNSP, NOT INTRACTABLE, WITHOUT 03/07/2017 GARO QUEZADA MD Ot I25. 10 ATHSCL HEART DISEASE OF [place] CORONARY 03/07/2017 GARO QUEZADA MD Ot I25. 2 OLD MYOCARDIAL INFARCTION 03/07/2017 GARO QUEZADA MD Ot I73. 89 OTHER SPECIFIED PERIPHERAL VASCULAR DISE 03/07/2017 GARO QUEZADA MD Ot R63. 4 ABNORMAL WEIGHT LOSS 03/07/2017 GARO QUEZADA MD Ot Z51. 11 ENCOUNTER FOR ANTINEOPLASTIC CHEMOTHERAP 03/07/2017 GARO QUEZADA MD Ot Z79.899 OTHER DETENTION (CURRENT) DRUG THERAPY 03/15/2017 GARO QUEZADA MD Ot G93. 9 DISORDER OF BRAIN, UNSPECIFIED 03/15/2017 GARO QUEZADA MD Ot H53. 2 DIPLOPIA 03/21/2017 GARO QUEZADA MD Ot G93. 9 DISORDER OF BRAIN, UNSPECIFIED 03/21/2017 GARO QUEZADA MD Ot H53. 2 DIPLOPIA 04/01/2017 GARO QUEZADA MD Ot G93. 9 DISORDER OF BRAIN, UNSPECIFIED 04/01/2017 GARO QUEZADA MD Ot H53. 2 DIPLOPIA 04/12/2017 GARO QUEZADA MD Ot C34. 11 MALIGNANT NEOPLASM OF UPPER LOBE, RIGHT 04/12/2017 GARO QUEZADA MD Ot F17.210 NICOTINE DEPENDENCE, CIGARETTES, UNCOMPL 04/12/2017 GARO QUEZADA MD Ot G40.909 EPILEPSY, UNSP, NOT INTRACTABLE, WITHOUT 04/12/2017 GARO QUEZADA MD Ot I25. 10 ATHSCL HEART DISEASE OF [place] CORONARY 04/12/2017 GARO QUEZADA MD Ot I25. 2 OLD MYOCARDIAL INFARCTION 04/12/2017 GARO QUEZADA MD Ot I73. 89 OTHER SPECIFIED PERIPHERAL VASCULAR DISE 04/12/2017 GARO QUEZADA MD Ot R63. 4 ABNORMAL WEIGHT LOSS 04/12/2017 GARO QUEZADA MD Ot Z51. 11 ENCOUNTER FOR ANTINEOPLASTIC CHEMOTHERAP 04/12/2017 GARO QUEZADA MD Ot Z79.899 OTHER DETENTION (CURRENT) DRUG THERAPY 04/27/2017 GARO QUEZADA MD Ot C34. 11 MALIGNANT NEOPLASM OF UPPER LOBE, RIGHT 04/27/2017 GARO QUEZADA MD Ot F17.210 NICOTINE DEPENDENCE, CIGARETTES, UNCOMPL 04/27/2017 GARO QUEZADA MD, Ot G40.909 EPILEPSY, UNSP, NOT INTRACTABLE, WITHOUT 04/27/2017 GARO QUEZADA MD Ot I25. 10 ATHSCL HEART DISEASE OF [place] CORONARY 04/27/2017 GARO QUEZADA MD Ot I25. 2 OLD MYOCARDIAL INFARCTION 04/27/2017 GARO QUEZADA MD Ot I73. 89 OTHER SPECIFIED PERIPHERAL VASCULAR DISE 04/27/2017 GARO QUEZADA MD Ot R63. 4 ABNORMAL WEIGHT LOSS 04/27/2017 GARO QUEZADA MD Ot Z51. 11 ENCOUNTER FOR ANTINEOPLASTIC CHEMOTHERAP 04/27/2017 GARO QUEZADA MD Ot Z79.899 OTHER DETENTION (CURRENT) DRUG THERAPY 05/06/2017 GARO QUEZADA MD Ot C34. 11 MALIGNANT NEOPLASM OF UPPER LOBE, RIGHT 05/06/2017 GARO QUEZADA MD Ot F17.210 NICOTINE DEPENDENCE, CIGARETTES, UNCOMPL 05/06/2017 GARO QUEZADA MD Ot G40.909 EPILEPSY, UNSP, NOT INTRACTABLE, WITHOUT 05/06/2017 GARO QUEZADA MD Ot I25. 10 ATHSCL HEART DISEASE OF [place] CORONARY 05/06/2017 GARO QUEZADA MD Ot I25. 2 OLD MYOCARDIAL INFARCTION 05/06/2017 GARO QUEZADA MD Ot I73. 89 OTHER SPECIFIED PERIPHERAL VASCULAR DISE 05/06/2017 GARO QUEZADA MD Ot R63. 4 ABNORMAL WEIGHT LOSS 05/06/2017 GARO QUEZADA MD Ot Z51. 11 ENCOUNTER FOR ANTINEOPLASTIC CHEMOTHERAP 05/06/2017 GARO QUEZADA MD Ot Z79.899 OTHER SENIOR VICE PRESIDENT AND CHIEF INFORMATION OFFICER (CURRENT) DRUG THERAPY 05/17/2017 GARO QUEZADA MD Ot C34. 11 MALIGNANT NEOPLASM OF UPPER LOBE, RIGHT 05/17/2017 GARO QUEZADA MD Ot F17.210 NICOTINE DEPENDENCE, CIGARETTES, UNCOMPL 05/17/2017 GARO QUEZADA MD Ot G40.909 EPILEPSY, UNSP, NOT INTRACTABLE, WITHOUT 05/17/2017 GARO QUEZADA MD Ot I25. 10 ATHSCL HEART DISEASE OF [place] CORONARY 05/17/2017 GARO QUEZADA MD Ot I25. 2 OLD MYOCARDIAL INFARCTION 05/17/2017 GARO QUEZADA MD Ot I73. 89 OTHER SPECIFIED PERIPHERAL VASCULAR DISE 05/17/2017 GARO QUEZADA MD Ot Z51. 11 ENCOUNTER FOR ANTINEOPLASTIC CHEMOTHERAP 05/17/2017 GARO QUEZADA MD Ot Z79.899 OTHER DETENTION (CURRENT) DRUG THERAPY 05/30/2017 GARO QUEZADA MD, Ot C34. 11 MALIGNANT NEOPLASM OF UPPER LOBE, RIGHT 05/30/2017 GARO QUEZADA MD Ot F17.210 NICOTINE DEPENDENCE, CIGARETTES, UNCOMPL 05/30/2017 GARO QUEZADA MD Ot G40.909 EPILEPSY, UNSP, NOT INTRACTABLE, WITHOUT 05/30/2017 GARO QUEZADA MD Ot I25. 10 ATHSCL HEART DISEASE OF [place] CORONARY 05/30/2017 GARO QUEZADA MD Ot I25. 2 OLD MYOCARDIAL INFARCTION 05/30/2017 GARO QUEZADA MD Ot I73. 89 OTHER SPECIFIED PERIPHERAL VASCULAR DISE 05/30/2017 GARO QUEZADA MD Ot Z51. 11 ENCOUNTER FOR ANTINEOPLASTIC CHEMOTHERAP 05/30/2017 GARO QUEZADA MD Ot Z79.899 OTHER SENIOR VICE PRESIDENT AND CHIEF INFORMATION OFFICER (CURRENT) DRUG THERAPY 05/30/2017 VALENTIN MEANS Ot C34.11 MALIGNANT NEOPLASM OF UPPER LOBE, RIGHT 05/30/2017 MIGUELANGEL, BOBAN N Ot F17.210 NICOTINE DEPENDENCE, CIGARETTES, UNCOMPL 05/30/2017 MIGUELANGELNIKOLEAN N Ot G40.909 EPILEPSY, UNSP, NOT INTRACTABLE, WITHOUT 05/30/2017 MIGUELANGEL, BOBAN N Ot I25.10 ATHSCL HEART DISEASE OF [place] CORONARY 05/30/2017 NIKOLE MEANSAN N Ot I25.2 OLD MYOCARDIAL INFARCTION 05/30/2017 VALENTIN MEANS N Ot I73.89 OTHER SPECIFIED PERIPHERAL VASCULAR DISE 05/30/2017 VALENTIN MEANS N Ot Z51.11 ENCOUNTER FOR ANTINEOPLASTIC CHEMOTHERAP 05/30/2017 MIGUELANGEL BOBAN N Ot Z79.899 OTHER SENIOR VICE PRESIDENT AND CHIEF INFORMATION OFFICER (CURRENT) DRUG THERAPY 05/31/2017 MIGUELANGEL BOBAN N Ot C34.11 MALIGNANT NEOPLASM OF UPPER LOBE, RIGHT 05/31/2017 MIGUELANGEL BOBAN N Ot F17.210 NICOTINE DEPENDENCE, CIGARETTES, UNCOMPL 05/31/2017 MIGUELANGELNIKOLE SAMSONAN N Ot G40.909 EPILEPSY, UNSP, NOT INTRACTABLE, WITHOUT 05/31/2017 MIGUELANGEL, BOBAN N Ot H53.2 DIPLOPIA 05/31/2017 MIGUELANGEL, BOBAN N Ot I25.10 ATHSCL HEART DISEASE OF [place] CORONARY 05/31/2017 MIGUELANGEL BOBAN N Ot I25.2 OLD MYOCARDIAL INFARCTION 05/31/2017 MIGUELANGEL BOBAN N Ot Z79.899 OTHER SENIOR VICE PRESIDENT AND CHIEF INFORMATION OFFICER (CURRENT) DRUG THERAPY 06/13/2017 MIGUELANGEL BOBAN N Ot C34.11 MALIGNANT NEOPLASM OF UPPER LOBE, RIGHT 06/13/2017 MIGUELANGELNIKOLEAN N Ot F17.210 NICOTINE DEPENDENCE, CIGARETTES, UNCOMPL 06/13/2017 MIGUELANGELNIKOLEAN N Ot G40.909 EPILEPSY, UNSP, NOT INTRACTABLE, WITHOUT 06/13/2017 MIGUELANGEL, BOBAN N Ot H53.2 DIPLOPIA 06/13/2017 MIGUELANGEL BOBAN N Ot I25.10 ATHSCL HEART DISEASE OF [place] CORONARY 06/13/2017 MIGUELANGEL BOBAN N Ot I25.2 OLD MYOCARDIAL INFARCTION 06/13/2017 MIGUELANGEL, BOBAN N Ot Z79.899 OTHER SENIOR VICE PRESIDENT AND CHIEF INFORMATION OFFICER (CURRENT) DRUG THERAPY 06/13/2017 MIGUELANGEL BOBAN N Ot C34.11 MALIGNANT NEOPLASM OF UPPER LOBE, RIGHT 06/13/2017 MIGUELANGEL, BOBAN N Ot F17.210 NICOTINE DEPENDENCE, CIGARETTES, UNCOMPL 06/13/2017 VALENTIN MEANS Ot G40.909 EPILEPSY, UNSP, NOT INTRACTABLE, WITHOUT 06/13/2017 VALENTIN MEANS Ot H53.2 DIPLOPIA 06/13/2017 VALENTIN MEANS Ot I25.10 ATHSCL HEART DISEASE OF [place] CORONARY 06/13/2017 VALENTIN MEANS Ot I25.2 OLD MYOCARDIAL INFARCTION 06/13/2017 VALENTIN MEANS Ot Z79.899 OTHER DETENTION (CURRENT) DRUG THERAPY 06/14/2017 GARO QUEZADA MD, Ot C34. 11 MALIGNANT NEOPLASM OF UPPER LOBE, RIGHT 06/14/2017 GARO QUEZADA MD, Ot F17.210 NICOTINE DEPENDENCE, CIGARETTES, UNCOMPL 06/14/2017 GARO QUEZADA MD, Ot G40.909 EPILEPSY, UNSP, NOT INTRACTABLE, WITHOUT 06/14/2017 GARO QUEZADA MD, Ot H53. 2 DIPLOPIA 06/14/2017 GARO QUEZADA MD, Ot I25. 10 ATHSCL HEART DISEASE OF [place] CORONARY 06/14/2017 GARO QUEZADA MD, Ot I25. 2 OLD MYOCARDIAL INFARCTION 06/14/2017 GARO QUEZADA MD, Ot Z51. 11 ENCOUNTER FOR ANTINEOPLASTIC CHEMOTHERAP 06/14/2017 GARO QUEZADA MD, Ot Z79.899 OTHER SENIOR VICE PRESIDENT AND CHIEF INFORMATION OFFICER (CURRENT) DRUG THERAPY 07/06/2017 GARO QUEZADA MD, Ot C34. 11 MALIGNANT NEOPLASM OF UPPER LOBE, RIGHT 07/06/2017 GARO QUEZADA MD Ot R05 COUGH 07/06/2017 GARO QUEZADA MD Ot Z95.828 PRESENCE OF OTHER VASCULAR IMPLANTS AND 07/18/2017 GARO QUEZADA MD Ot C34. 11 MALIGNANT NEOPLASM OF UPPER LOBE, RIGHT 07/18/2017 GARO QUEZADA MD Ot R05 COUGH 07/18/2017 GARO QUEZADA MD, Ot Z95.828 PRESENCE OF OTHER VASCULAR IMPLANTS AND 07/24/2017 GARO QUEZADA MD Ot C34. 11 MALIGNANT NEOPLASM OF UPPER LOBE, RIGHT 07/24/2017 GARO QUEZADA MD Ot F17.210 NICOTINE DEPENDENCE, CIGARETTES, UNCOMPL 07/24/2017 GARO QUEZADA MD, Ot G40.909 EPILEPSY, UNSP, NOT INTRACTABLE, WITHOUT 07/24/2017 GARO QUEZADA MD Ot H53. 2 DIPLOPIA 07/24/2017 GARO QUEZADA MD Ot I25. 10 ATHSCL HEART DISEASE OF [place] CORONARY 07/24/2017 GARO QUEZADA MD Ot I25. 2 OLD MYOCARDIAL INFARCTION 07/24/2017 GARO QUEZADA MD Ot Z51. 11 ENCOUNTER FOR ANTINEOPLASTIC CHEMOTHERAP 07/24/2017 GARO QUEZADA MD Ot Z79.899 OTHER DETENTION (CURRENT) DRUG THERAPY 08/08/2017 GARO QUEZADA MD Ot C34. 11 MALIGNANT NEOPLASM OF UPPER LOBE, RIGHT 08/08/2017 GARO QUEZADA MD Ot F17.210 NICOTINE DEPENDENCE, CIGARETTES, UNCOMPL 08/08/2017 GARO QUEZADA MD Ot G40.909 EPILEPSY, UNSP, NOT INTRACTABLE, WITHOUT 08/08/2017 GARO QUEZADA MD Ot H53. 2 DIPLOPIA 08/08/2017 GARO QUEZADA MD Ot I25. 10 ATHSCL HEART DISEASE OF [place] CORONARY 08/08/2017 GARO QUEZADA MD Ot I25. 2 OLD MYOCARDIAL INFARCTION 08/08/2017 GARO QUEZADA MD Ot Z51. 11 ENCOUNTER FOR ANTINEOPLASTIC CHEMOTHERAP 08/08/2017 GARO QUEZADA MD Ot Z79.899 OTHER SENIOR VICE PRESIDENT AND CHIEF INFORMATION OFFICER (CURRENT) DRUG THERAPY 08/10/2017 JIMY ROBERTSON MD Ot C34.11 MALIGNANT NEOPLASM OF UPPER LOBE, RIGHT 08/10/2017 JIMY ROBERTSON MD Ot F17.210 NICOTINE DEPENDENCE, CIGARETTES, UNCOMPL 08/10/2017 JIMY ROBERTSON MD Ot G40.909 EPILEPSY, UNSP, NOT INTRACTABLE, WITHOUT 08/10/2017 JIMY ROBERTSON MD Ot I25.10 ATHSCL HEART DISEASE OF [place] CORONARY 08/10/2017 JIMY ROBERTSON MD Ot I25.2 OLD MYOCARDIAL INFARCTION 08/10/2017 JIMY ROBERTSON MD Ot Z51.11 ENCOUNTER FOR ANTINEOPLASTIC CHEMOTHERAP 08/10/2017 JIMY ROBERTSON MD Ot Z79.899 OTHER DETENTION (CURRENT) DRUG THERAPY 09/06/2017 JIMY ROBERTSON MD Ot C34.11 MALIGNANT NEOPLASM OF UPPER LOBE, RIGHT 09/06/2017 AILYN ADKINS, JIMY Ot F17.210 NICOTINE DEPENDENCE, CIGARETTES, UNCOMPL 09/06/2017 JIMY ROBERTSON MD Ot G40.909 EPILEPSY, UNSP, NOT INTRACTABLE, WITHOUT 09/06/2017 JIMY ROBERTSON MD Ot I25.10 ATHSCL HEART DISEASE OF [place] CORONARY 09/06/2017 JIMY ROBERTSON MD Ot I25.2 OLD MYOCARDIAL INFARCTION 09/06/2017 JIMY ROBERTSON MD Ot Z51.11 ENCOUNTER FOR ANTINEOPLASTIC CHEMOTHERAP 09/06/2017 JIMY ROBERTSON MD Ot Z79.899 OTHER DETENTION (CURRENT) DRUG THERAPY 09/21/2017 GARO QUEZADA MD Ot C34. 11 MALIGNANT NEOPLASM OF UPPER LOBE, RIGHT 09/21/2017 GARO QUEZADA MD Ot F17.210 NICOTINE DEPENDENCE, CIGARETTES, UNCOMPL 09/21/2017 GARO QUEZADA MD Ot G40.909 EPILEPSY, UNSP, NOT INTRACTABLE, WITHOUT 09/21/2017 GARO QUEZADA MD Ot I25. 10 ATHSCL HEART DISEASE OF [place] CORONARY 09/21/2017 GARO QUEZADA MD Ot I25. 2 OLD MYOCARDIAL INFARCTION 09/21/2017 GARO QUEZADA MD Ot Z51. 11 ENCOUNTER FOR ANTINEOPLASTIC CHEMOTHERAP 09/21/2017 GARO QUEZADA MD Ot Z79.899 OTHER DETENTION (CURRENT) DRUG THERAPY 10/30/2017 GARO QUEZADA MD Ot C34. 11 MALIGNANT NEOPLASM OF UPPER LOBE, RIGHT 10/30/2017 GARO QUEZADA MD Ot F17.210 NICOTINE DEPENDENCE, CIGARETTES, UNCOMPL 10/30/2017 GARO QUEZADA MD Ot G40.909 EPILEPSY, UNSP, NOT INTRACTABLE, WITHOUT 10/30/2017 GARO QUEZADA MD Ot I25. 10 ATHSCL HEART DISEASE OF [place] CORONARY 10/30/2017 GARO QUEZADA MD Ot I25. 2 OLD MYOCARDIAL INFARCTION 10/30/2017 GARO QUEZADA MD Ot Z51. 11 ENCOUNTER FOR ANTINEOPLASTIC CHEMOTHERAP 10/30/2017 GARO QUEZADA MD Ot Z79.899 OTHER DETENTION (CURRENT) DRUG THERAPY 11/28/2017 GARO QUEZADA MD Ot C34. 11 MALIGNANT NEOPLASM OF UPPER LOBE, RIGHT 11/28/2017 GARO QUEZADA MD Ot F17.210 NICOTINE DEPENDENCE, CIGARETTES, UNCOMPL 11/28/2017 GARO QUEZADA MD, Ot G40.909 EPILEPSY, UNSP, NOT INTRACTABLE, WITHOUT 11/28/2017 GARO QUEZADA MD Ot I25. 10 ATHSCL HEART DISEASE OF [place] CORONARY 11/28/2017 GARO QUEZADA MD Ot I25. 2 OLD MYOCARDIAL INFARCTION 11/28/2017 GARO QUEZADA MD, Ot Z51. 11 ENCOUNTER FOR ANTINEOPLASTIC CHEMOTHERAP 11/28/2017 GARO QUEZADA MD Ot Z79.899 OTHER DETENTION (CURRENT) DRUG THERAPY 12/05/2017 GARO QUEZADA MD, Ot C34. 11 MALIGNANT NEOPLASM OF UPPER LOBE, RIGHT 12/05/2017 GARO QUEZADA MD, Ot C79. 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 10 ATHSCL HEART DISEASE OF [place] CORONARY 12/05/2017 GARO QUEZADA MD Ot I25. 2 OLD MYOCARDIAL INFARCTION 12/05/2017 GARO QUEZADA MD Ot Z51. 11 ENCOUNTER FOR ANTINEOPLASTIC CHEMOTHERAP 12/05/2017 GARO QUEZADA MD, Ot Z79.899 OTHER SENIOR VICE PRESIDENT AND CHIEF INFORMATION OFFICER (CURRENT) DRUG THERAPY 12/05/2017 GARO QUEZADA MD Ot Z93. 3 COLOSTOMY STATUS 12/06/2017 GARO QUEZADA MD Ot C34. 11 MALIGNANT NEOPLASM OF UPPER LOBE, RIGHT 12/06/2017 GARO QUEZADA MD Ot C79. 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 12/06/2017 GARO QUEZADA MD Ot C79. 71 SECONDARY MALIGNANT NEOPLASM OF RIGHT AD 12/06/2017 GARO QUEZADA MD Ot F17.210 NICOTINE DEPENDENCE, CIGARETTES, UNCOMPL 12/06/2017 GARO QUEZADA MD Ot G40.909 EPILEPSY, UNSP, NOT INTRACTABLE, WITHOUT 12/06/2017 GARO QUEZADA MD Ot I25. 10 ATHSCL HEART DISEASE OF [place] CORONARY 12/06/2017 GARO QUEZADA MD Ot I25. 2 OLD MYOCARDIAL INFARCTION 12/06/2017 GARO QUEZADA MD Ot Z51. 11 ENCOUNTER FOR ANTINEOPLASTIC CHEMOTHERAP 12/06/2017 GARO QUEZADA MD Ot Z79.899 OTHER SENIOR VICE PRESIDENT AND CHIEF INFORMATION OFFICER (CURRENT) DRUG THERAPY 12/06/2017 GARO QUEZADA MD Ot Z93. 3 COLOSTOMY STATUS 12/25/2017 GARO QUEZADA MD Ot C34. 11 MALIGNANT NEOPLASM OF UPPER LOBE, RIGHT 12/25/2017 GARO QUEZADA MD Ot F17.210 NICOTINE DEPENDENCE, CIGARETTES, UNCOMPL 12/25/2017 GARO QUEZADA MD Ot G40.909 EPILEPSY, UNSP, NOT INTRACTABLE, WITHOUT 12/25/2017 GARO QUEZADA MD Ot I25. 10 ATHSCL HEART DISEASE OF [place] CORONARY 12/25/2017 GARO QUEZADA MD Ot I25. 2 OLD MYOCARDIAL INFARCTION 12/25/2017 GARO QUEZADA MD Ot Z51. 11 ENCOUNTER FOR ANTINEOPLASTIC CHEMOTHERAP 12/25/2017 GARO QUEZADA MD Ot Z79.899 OTHER DETENTION (CURRENT) DRUG THERAPY 01/17/2018 GARO QUEZADA MD Ot C34. 11 MALIGNANT NEOPLASM OF UPPER LOBE, RIGHT 01/17/2018 GARO QUEZADA MD Ot F17.210 NICOTINE DEPENDENCE, CIGARETTES, UNCOMPL 01/17/2018 GARO QUEZADA MD Ot G40.909 EPILEPSY, UNSP, NOT INTRACTABLE, WITHOUT 01/17/2018 GARO QUEZADA MD Ot I25. 10 ATHSCL HEART DISEASE OF [place] CORONARY 01/17/2018 GARO QUEZADA MD Ot I25. 2 OLD MYOCARDIAL INFARCTION 01/17/2018 GARO QUEZADA MD Ot Z51. 11 ENCOUNTER FOR ANTINEOPLASTIC CHEMOTHERAP 01/17/2018 GARO QUEZADA MD Ot Z79.899 OTHER DETENTION (CURRENT) DRUG THERAPY 01/22/2018 GARO QUEZADA MD Ot C34. 11 MALIGNANT NEOPLASM OF UPPER LOBE, RIGHT 01/22/2018 GARO QUEZADA MD Ot F17.210 NICOTINE DEPENDENCE, CIGARETTES, UNCOMPL 01/22/2018 GARO QUEZADA MD Ot G40.909 EPILEPSY, UNSP, NOT INTRACTABLE, WITHOUT 01/22/2018 GARO QUEZADA MD Ot I25. 10 ATHSCL HEART DISEASE OF [place] CORONARY 01/22/2018 GARO QUEZADA MD Ot I25. 2 OLD MYOCARDIAL INFARCTION 01/22/2018 GARO QUEZADA MD Ot Z51. 11 ENCOUNTER FOR ANTINEOPLASTIC CHEMOTHERAP 01/22/2018 GARO QUEZADA MD Ot Z79.899 OTHER SENIOR VICE PRESIDENT AND CHIEF INFORMATION OFFICER (CURRENT) DRUG THERAPY 01/22/2018 MIGUELANGEL, BOBAN N Ot C34.11 MALIGNANT NEOPLASM OF UPPER LOBE, RIGHT 01/22/2018 MIGUELANGEL, BOBAN N Ot F17.210 NICOTINE DEPENDENCE, CIGARETTES, UNCOMPL 01/22/2018 MIGUELANGEL, BOBAN N Ot G40.909 EPILEPSY, UNSP, NOT INTRACTABLE, WITHOUT 01/22/2018 MIGUELANGEL, BOBAN N Ot I25.10 ATHSCL HEART DISEASE OF [place] CORONARY 01/22/2018 MIGUELANGEL, BOBAN N Ot I25.2 OLD MYOCARDIAL INFARCTION 01/22/2018 MIGUELANGEL, BOBAN N Ot Z51.11 ENCOUNTER FOR ANTINEOPLASTIC CHEMOTHERAP 01/22/2018 MIGUELANGEL, BOBAN N Ot Z79.899 OTHER SENIOR VICE PRESIDENT AND CHIEF INFORMATION OFFICER (CURRENT) DRUG THERAPY 01/23/2018 MIGUELANGEL, BOBAN N Ot C34.11 MALIGNANT NEOPLASM OF UPPER LOBE, RIGHT 01/23/2018 MIGUELANGEL, BOBAN N Ot F17.210 NICOTINE DEPENDENCE, CIGARETTES, UNCOMPL 01/23/2018 MIGUELANGEL, BOBAN N Ot G40.909 EPILEPSY, UNSP, NOT INTRACTABLE, WITHOUT 01/23/2018 MIGUELANGEL, BOBAN N Ot I25.10 ATHSCL HEART DISEASE OF [place] CORONARY 01/23/2018 MIGUELANGEL, BOBAN N Ot I25.2 OLD MYOCARDIAL INFARCTION 01/23/2018 MIGUELANGEL, BOBAN N Ot Z51.11 ENCOUNTER FOR ANTINEOPLASTIC CHEMOTHERAP 01/23/2018 MIGUELANGEL, BOBAN N Ot Z79.899 OTHER DETENTION (CURRENT) DRUG THERAPY 02/20/2018 MIGUELANGEL, BOBAN N Ot C34.11 MALIGNANT NEOPLASM OF UPPER LOBE, RIGHT 02/20/2018 MIGUELANGEL, BOBAN N Ot F17.210 NICOTINE DEPENDENCE, CIGARETTES, UNCOMPL 02/20/2018 MIGUELANGEL, BOBAN N Ot G40.909 EPILEPSY, UNSP, NOT INTRACTABLE, WITHOUT 02/20/2018 MIGUELANGEL, BOBAN N Ot I25.10 ATHSCL HEART DISEASE OF [place] CORONARY 02/20/2018 MIGUELANGEL, BOBAN N Ot I25.2 OLD MYOCARDIAL INFARCTION 02/20/2018 MIGUELANGEL, BOBAN N Ot Z51.11 ENCOUNTER FOR ANTINEOPLASTIC CHEMOTHERAP 02/20/2018 MIGUELANGEL, BOBAN N Ot Z79.899 OTHER SENIOR VICE PRESIDENT AND CHIEF INFORMATION OFFICER (CURRENT) DRUG THERAPY 02/20/2018 MIGUELANGEL, BOBAN N Ot C34.11 MALIGNANT NEOPLASM OF UPPER LOBE, RIGHT 02/20/2018 MIGUELANGEL, BOBAN N Ot F17.210 NICOTINE DEPENDENCE, CIGARETTES, UNCOMPL 02/20/2018 MIGUELANGEL, BOBAN N Ot G40.909 EPILEPSY, UNSP, NOT INTRACTABLE, WITHOUT 02/20/2018 MIGUELANGEL, BOBAN N Ot I25.10 ATHSCL HEART DISEASE OF [place] CORONARY 02/20/2018 MIGUELANGEL, BOBAN N Ot I25.2 OLD MYOCARDIAL INFARCTION 02/20/2018 MIGUELANGEL, BOBAN N Ot Z51.11 ENCOUNTER FOR ANTINEOPLASTIC CHEMOTHERAP 02/20/2018 MIGUELANGEL, BOBAN N Ot Z79.899 OTHER DETENTION (CURRENT) DRUG THERAPY 02/25/2018 MIGUELANGEL, BOBAN N Ot C34.11 MALIGNANT NEOPLASM OF UPPER LOBE, RIGHT 02/25/2018 MIGUELANGEL, BOBAN N Ot F17.210 NICOTINE DEPENDENCE, CIGARETTES, UNCOMPL 02/25/2018 MIGUELANGEL, BOBAN N Ot G40.909 EPILEPSY, UNSP, NOT INTRACTABLE, WITHOUT 02/25/2018 MIGUELANGEL, BOBAN N Ot I25.10 ATHSCL HEART DISEASE OF [place] CORONARY 02/25/2018 MIGUELANGEL, BOBAN N Ot I25.2 OLD MYOCARDIAL INFARCTION 02/25/2018 MIGUELANGEL, BOBAN N Ot Z51.11 ENCOUNTER FOR ANTINEOPLASTIC CHEMOTHERAP 02/25/2018 MIGUELANGEL, BOBAN N Ot Z79.899 OTHER DETENTION (CURRENT) DRUG THERAPY 03/27/2018 MIGUELANGEL, BOBAN N Ot C34.11 MALIGNANT NEOPLASM OF UPPER LOBE, RIGHT 03/27/2018 MIGUELANGEL, BOBAN N Ot F17.210 NICOTINE DEPENDENCE, CIGARETTES, UNCOMPL 03/27/2018 MIGUELANGEL, BOBAN N Ot G40.909 EPILEPSY, UNSP, NOT INTRACTABLE, WITHOUT 03/27/2018 VALENTIN MEANS Ot I25.10 ATHSCL HEART DISEASE OF [place] CORONARY 03/27/2018 VALENTIN MEANS Ot I25.2 OLD MYOCARDIAL INFARCTION 03/27/2018 VALENTIN MEANS Ot Z51.11 ENCOUNTER FOR ANTINEOPLASTIC CHEMOTHERAP 03/27/2018 VALENTIN MEANS Ot Z79.899 OTHER DETENTION (CURRENT) DRUG THERAPY 04/04/2018 Ot C34.11 MAL IGNANT NEOPLASM OF UPPER LOBE, RIGHT 04/04/2018 Ot C79.31 SEC ONDARY MALIGNANT NEOPLASM OF BRAIN 04/04/2018 Ot I67.82 CER EBRAL ISCHEMIA 04/23/2018 GARO QUEZADA MD, Ot C34. 11 MALIGNANT NEOPLASM OF UPPER LOBE, RIGHT 04/23/2018 GARO QUEZADA MD, Ot C79. 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 42 HYPOMAGNESEMIA 04/23/2018 GARO QUEZADA MD Ot F17.210 NICOTINE DEPENDENCE, CIGARETTES, UNCOMPL 04/23/2018 GARO QUEZADA MD Ot G40.909 EPILEPSY, UNSP, NOT INTRACTABLE, WITHOUT 04/23/2018 GARO QUEZADA MD Ot I25. 10 ATHSCL HEART DISEASE OF [place] CORONARY 04/23/2018 GARO QUEZADA MD Ot I25. 2 OLD MYOCARDIAL INFARCTION 04/23/2018 GARO QUEZADA MD Ot Z79. 82 DETENTION (CURRENT) USE OF ASPIRIN 04/23/2018 GARO QUEZADA MD Ot Z79.899 OTHER DETENTION (CURRENT) DRUG THERAPY 04/23/2018 GARO QUEZADA MD Ot Z93. 3 COLOSTOMY STATUS 04/26/2018 GARO QUEZADA MD Ot C34. 11 MALIGNANT NEOPLASM OF UPPER LOBE, RIGHT 04/26/2018 GARO QUEZADA MD Ot C79. 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 04/26/2018 GARO QUEZADA MD Ot C79. 71 SECONDARY MALIGNANT NEOPLASM OF RIGHT AD 04/26/2018 GARO QUEZADA MD Ot E83. 42 HYPOMAGNESEMIA 04/26/2018 GARO QUEZADA MD Ot F17.210 NICOTINE DEPENDENCE, CIGARETTES, UNCOMPL 04/26/2018 GARO QUEZADA MD Ot G40.909 EPILEPSY, UNSP, NOT INTRACTABLE, WITHOUT 04/26/2018 GARO QUEZADA MD Ot I25. 10 ATHSCL HEART DISEASE OF [place] CORONARY 04/26/2018 GARO QUEZADA MD Ot I25. 2 OLD MYOCARDIAL INFARCTION 04/26/2018 GARO QUEZADA MD Ot Z79. 82 DETENTION (CURRENT) USE OF ASPIRIN 04/26/2018 GARO QUEZADA MD Ot Z79.899 OTHER DETENTION (CURRENT) DRUG THERAPY 04/26/2018 GARO QUEZADA MD, Ot Z93. 3 COLOSTOMY STATUS 05/21/2018 GARO QUEZADA MD, Ot C34. 11 MALIGNANT NEOPLASM OF UPPER LOBE, RIGHT 05/21/2018 GARO QUEZADA MD Ot C79. 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 05/21/2018 GARO QUEZADA MD Ot C79. 71 SECONDARY MALIGNANT NEOPLASM OF RIGHT AD 05/21/2018 GARO QUEZADA MD Ot E83. 42 HYPOMAGNESEMIA 05/21/2018 GARO QUEZADA MD Ot F17.210 NICOTINE DEPENDENCE, CIGARETTES, UNCOMPL 05/21/2018 GARO QUEZADA MD Ot G40.909 EPILEPSY, UNSP, NOT INTRACTABLE, WITHOUT 05/21/2018 GARO QUEZADA MD Ot I25. 10 ATHSCL HEART DISEASE OF [place] CORONARY 05/21/2018 GARO QUEZADA MD Ot I25. 2 OLD MYOCARDIAL INFARCTION 05/21/2018 GARO QUEZADA MD Ot Z51. 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 3 COLOSTOMY STATUS 05/21/2018 VALENTIN MEANS Ot C34.11 MALIGNANT NEOPLASM OF UPPER LOBE, RIGHT 05/21/2018 VALENTIN MEANS Ot C79.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 05/21/2018 MIGUELANGEL, BOBAN N Ot C79.71 SECONDARY MALIGNANT NEOPLASM OF RIGHT AD 05/21/2018 MIGUELANGELNIKOLEAN N Ot E83.42 HYPOMAGNESEMIA 05/21/2018 MIGUELANGELVALENTIN N Ot F17.210 NICOTINE DEPENDENCE, CIGARETTES, UNCOMPL 05/21/2018 MIGUELANGEL BOBAN N Ot G40.909 EPILEPSY, UNSP, NOT INTRACTABLE, WITHOUT 05/21/2018 MIGUELANGEL BOBAN N Ot I25.10 ATHSCL HEART DISEASE OF [place] CORONARY 05/21/2018 MIGUELANGEL BOBAN N Ot I25.2 OLD MYOCARDIAL INFARCTION 05/21/2018 MIGUELANGEL BOBAN N Ot Z79.82 DETENTION (CURRENT) USE OF ASPIRIN 05/21/2018 MIGUELANGEL, BOBAN N Ot Z79.899 OTHER DETENTION (CURRENT) DRUG THERAPY 05/21/2018 MIGUELANGEL, BOBAN N Ot Z93.3 COLOSTOMY STATUS 05/22/2018 MIGUELANGEL BOBAN N Ot C34.11 MALIGNANT NEOPLASM OF UPPER LOBE, RIGHT 05/22/2018 MIGUELANGEL BOBAN N Ot C79.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 05/22/2018 MIGUELANGEL, BOBAN N Ot C79.71 SECONDARY MALIGNANT NEOPLASM OF RIGHT AD 05/22/2018 MIGUELANGEL BOBAN N Ot E83.42 HYPOMAGNESEMIA 05/22/2018 MIGUELANGEL, BOBDANK N Ot F17.210 NICOTINE DEPENDENCE, CIGARETTES, UNCOMPL 05/22/2018 MIGUELANGEL BOBAN N Ot G40.909 EPILEPSY, UNSP, NOT INTRACTABLE, WITHOUT 05/22/2018 MIGUELANGEL BOBAN N Ot I25.10 ATHSCL HEART DISEASE OF [place] CORONARY 05/22/2018 MIGUELANGEL BOBAN N Ot I25.2 OLD MYOCARDIAL INFARCTION 05/22/2018 MIGUELANGEL BOBAN N Ot Z79.82 DETENTION (CURRENT) USE OF ASPIRIN 05/22/2018 MIGUELANGEL, BOBAN N Ot Z79.899 OTHER SENIOR VICE PRESIDENT AND CHIEF INFORMATION OFFICER (CURRENT) DRUG THERAPY 05/22/2018 MIGUELANGEL BOBAN N Ot Z93.3 COLOSTOMY STATUS 06/06/2018 MIGUELANGEL BOBAN N Ot C34.11 MALIGNANT NEOPLASM OF UPPER LOBE, RIGHT 06/06/2018 MIGUELANGEL, BOBAN N Ot C79.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 06/06/2018 MIGUELANGEL BOBAN N Ot C79.71 SECONDARY MALIGNANT NEOPLASM OF RIGHT AD 06/06/2018 VALENTIN MEANS Ot E83.42 HYPOMAGNESEMIA 06/06/2018 VALENTIN MEANS Ot F17.210 NICOTINE DEPENDENCE, CIGARETTES, UNCOMPL 06/06/2018 VALENTIN MEANS Ot G40.909 EPILEPSY, UNSP, NOT INTRACTABLE, WITHOUT 06/06/2018 VALENTIN MEANS Ot I25.10 ATHSCL HEART DISEASE OF [place] CORONARY 06/06/2018 VALENTIN MEANS Ot I25.2 OLD MYOCARDIAL INFARCTION 06/06/2018 VALENTIN MEANS Ot Z51.11 ENCOUNTER FOR ANTINEOPLASTIC CHEMOTHERAP 06/06/2018 VALENTIN MEANS Ot Z79.82 SENIOR VICE PRESIDENT AND CHIEF INFORMATION OFFICER (CURRENT) USE OF ASPIRIN 06/06/2018 VALENTIN MEANS Ot Z79.899 OTHER DETENTION (CURRENT) DRUG THERAPY 06/06/2018 VALENTIN MEANS Ot Z93.3 COLOSTOMY STATUS 06/15/2018 ERMIAS ROBLESP Ot C34.11 MALIGNANT NEOPLASM OF UPPER LOBE, RIGHT 06/15/2018 ERMIAS ROBLES ELECTRICAL SUPERVISOR Ot C44.702 UNSP MALIGNANT NEOPLASM SKIN/ RIGHT LOWE 06/15/2018 ERMIAS ROBLES ELECTRICAL SUPERVISOR Ot C79.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 06/15/2018 ERMIAS ROBLESP Ot 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 11 MALIGNANT NEOPLASM OF UPPER LOBE, RIGHT 06/19/2018 GARO QUEZADA MD Ot C79. 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 06/19/2018 GARO QUEZADA MD Ot C79. 71 SECONDARY MALIGNANT NEOPLASM OF RIGHT AD 06/19/2018 GARO QUEZADA MD Ot E83. 42 HYPOMAGNESEMIA 06/19/2018 GARO QUEZADA MD Ot F17.210 NICOTINE DEPENDENCE, CIGARETTES, UNCOMPL 06/19/2018 GARO QUEZADA MD, Ot G40.909 EPILEPSY, UNSP, NOT INTRACTABLE, WITHOUT 06/19/2018 GARO QUEZADA MD, Ot I25. 10 ATHSCL HEART DISEASE OF [place] CORONARY 06/19/2018 GARO QUEZADA MD, Ot I25. 2 OLD MYOCARDIAL INFARCTION 06/19/2018 GARO QUEZADA MD, Ot Z51. 11 ENCOUNTER FOR ANTINEOPLASTIC CHEMOTHERAP 06/19/2018 GARO QUEZADA MD, Ot Z79. 82 SENIOR VICE PRESIDENT AND CHIEF INFORMATION OFFICER (CURRENT) USE OF ASPIRIN 06/19/2018 GARO QUEZADA MD, Ot Z79.899 OTHER DETENTION (CURRENT) DRUG THERAPY 06/19/2018 GARO QUEZADA MD, Ot Z93. 3 COLOSTOMY STATUS 07/02/2018 ERMIAS ROBLESP Ot C34.11 MALIGNANT NEOPLASM OF UPPER LOBE, RIGHT 07/02/2018 ERMIAS ROBLES Ot C44.702 UNSP MALIGNANT NEOPLASM SKIN/ RIGHT LOWE 07/02/2018 ERMIAS ROBLES Ot C79.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 07/02/2018 ERMIAS ROBLES Ot C79.71 SECONDARY MALIGNANT NEOPLASM OF RIGHT AD 07/13/2018 GARO QUEZADA MD Ot C34. 11 MALIGNANT NEOPLASM OF UPPER LOBE, RIGHT 07/13/2018 GARO QUEZADA MD Ot C79. 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 07/13/2018 GARO QUEZADA MD Ot C79. 71 SECONDARY MALIGNANT NEOPLASM OF RIGHT AD 07/13/2018 GARO QUEZADA MD Ot E83. 42 HYPOMAGNESEMIA 07/13/2018 GARO QUEZADA MD Ot F17.210 NICOTINE DEPENDENCE, CIGARETTES, UNCOMPL 07/13/2018 GARO QUEZADA MD, Ot G40.909 EPILEPSY, UNSP, NOT INTRACTABLE, WITHOUT 07/13/2018 GARO QUEZADA MD, Ot I25. 10 ATHSCL HEART DISEASE OF [place] CORONARY 07/13/2018 GARO QUEZADA MD, Ot I25. 2 OLD MYOCARDIAL INFARCTION 07/13/2018 GARO QUEAZDA MD, Ot Z51. 11 ENCOUNTER FOR ANTINEOPLASTIC CHEMOTHERAP 07/13/2018 GARO QUEZADA MD Ot Z79. 82 DETENTION (CURRENT) USE OF ASPIRIN 07/13/2018 GARO QUEZADA MD Ot Z79.899 OTHER SENIOR VICE PRESIDENT AND CHIEF INFORMATION OFFICER (CURRENT) DRUG THERAPY 07/13/2018 GARO QUEZADA MD Ot Z93. 3 COLOSTOMY STATUS 07/17/2018 GARO QUEZADA MD Ot C34. 11 MALIGNANT NEOPLASM OF UPPER LOBE, RIGHT 07/17/2018 GARO QUEZADA MD Ot C79. 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 07/17/2018 GARO QUEZADA MD, Ot C79. 71 SECONDARY MALIGNANT NEOPLASM OF RIGHT AD 07/17/2018 GARO QUEZADA MD Ot E83. 42 HYPOMAGNESEMIA 07/17/2018 GARO QUEZADA MD Ot F17.210 NICOTINE DEPENDENCE, CIGARETTES, UNCOMPL 07/17/2018 GARO QUEZADA MD Ot G40.909 EPILEPSY, UNSP, NOT INTRACTABLE, WITHOUT 07/17/2018 GARO QUEZADA MD Ot I25. 10 ATHSCL HEART DISEASE OF [place] CORONARY 07/17/2018 GARO QUEZADA MD Ot I25. 2 OLD MYOCARDIAL INFARCTION 07/17/2018 GARO QUEZADA MD Ot Z51. 11 ENCOUNTER FOR ANTINEOPLASTIC CHEMOTHERAP 07/17/2018 GARO QUEZADA MD Ot Z79. 82 DETENTION (CURRENT) USE OF ASPIRIN 07/17/2018 GARO QUEZADA MD Ot Z79.899 OTHER SENIOR VICE PRESIDENT AND CHIEF INFORMATION OFFICER (CURRENT) DRUG THERAPY 07/17/2018 GARO QUEZADA MD Ot Z93. 3 COLOSTOMY STATUS 07/27/2018 GARO QUEZADA MD Ot C34. 11 MALIGNANT NEOPLASM OF UPPER LOBE, RIGHT 07/27/2018 GARO QUEZADA MD Ot C79. 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 07/27/2018 GARO QUEZADA MD Ot C79. 71 SECONDARY MALIGNANT NEOPLASM OF RIGHT AD 07/27/2018 GARO QUEZADA MD Ot E83. 42 HYPOMAGNESEMIA 07/27/2018 GARO QUEZADA MD Ot F17.210 NICOTINE DEPENDENCE, CIGARETTES, UNCOMPL 07/27/2018 GARO QUEZADA MD Ot G40.909 EPILEPSY, UNSP, NOT INTRACTABLE, WITHOUT 07/27/2018 GARO QUEZADA MD, Ot I25. 10 ATHSCL HEART DISEASE OF [place] CORONARY 07/27/2018 GARO QUEZADA MD, Ot I25. 2 OLD MYOCARDIAL INFARCTION 07/27/2018 GARO QUEZADA MD, Ot Z51. 11 ENCOUNTER FOR ANTINEOPLASTIC CHEMOTHERAP 07/27/2018 GARO QUEZADA MD, Ot Z79. 82 DETENTION (CURRENT) USE OF ASPIRIN 07/27/2018 GARO QUEZADA MD, Ot Z79.899 OTHER DETENTION (CURRENT) DRUG THERAPY 07/27/2018 GARO QUEZADA MD, Ot Z93. 3 COLOSTOMY STATUS 08/14/2018 GARO QUEZADA MD, Ot C34. 11 MALIGNANT NEOPLASM OF UPPER LOBE, RIGHT 08/14/2018 GARO QUEZADA MD, Ot C79. 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 08/14/2018 GARO QUEZADA MD, Ot C79. 71 SECONDARY MALIGNANT NEOPLASM OF RIGHT AD 08/14/2018 GARO QUEZADA MD, Ot E83. 42 HYPOMAGNESEMIA 08/14/2018 GARO QUEZADA MD Ot F17.210 NICOTINE DEPENDENCE, CIGARETTES, UNCOMPL 08/14/2018 GARO QUEZADA MD Ot G40.909 EPILEPSY, UNSP, NOT INTRACTABLE, WITHOUT 08/14/2018 GARO QUEZADA MD, Ot I25. 10 ATHSCL HEART DISEASE OF [place] CORONARY 08/14/2018 GARO QUEZADA MD Ot I25. 2 OLD MYOCARDIAL INFARCTION 08/14/2018 GARO QUEZADA MD, Ot Z51. 11 ENCOUNTER FOR ANTINEOPLASTIC CHEMOTHERAP 08/14/2018 GARO QUEZADA MD, Ot Z79. 82 SENIOR VICE PRESIDENT AND CHIEF INFORMATION OFFICER (CURRENT) USE OF ASPIRIN 08/14/2018 GARO QUEZADA MD, Ot Z79.899 OTHER DETENTION (CURRENT) DRUG THERAPY 08/14/2018 GARO QUEZADA MD Ot Z93. 3 COLOSTOMY STATUS 09/11/2018 GARO QUEZADA MD, Ot C34. 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 71 SECONDARY MALIGNANT NEOPLASM OF RIGHT AD 09/11/2018 GARO QUEZADA MD, Ot E83. 42 HYPOMAGNESEMIA 09/11/2018 GARO QUEZADA MD Ot F17.210 NICOTINE DEPENDENCE, CIGARETTES, UNCOMPL 09/11/2018 GARO QUEZADA MD Ot G40.909 EPILEPSY, UNSP, NOT INTRACTABLE, WITHOUT 09/11/2018 GARO QUEZADA MD Ot I25. 10 ATHSCL HEART DISEASE OF [place] CORONARY 09/11/2018 GARO QUEZADA MD Ot I25. 2 OLD MYOCARDIAL INFARCTION 09/11/2018 GARO QUEZADA MD Ot Z51. 11 ENCOUNTER FOR ANTINEOPLASTIC CHEMOTHERAP 09/11/2018 GARO QUEZADA MD, Ot Z79. 82 SENIOR VICE PRESIDENT AND CHIEF INFORMATION OFFICER (CURRENT) USE OF ASPIRIN 09/11/2018 GARO QUEZADA MD, Ot Z79.899 OTHER DETENTION (CURRENT) DRUG THERAPY 09/11/2018 GARO QUEZADA MD, Ot Z93. 3 COLOSTOMY STATUS 09/17/2018 GARO QUEZADA MD Ot C34. 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 71 SECONDARY MALIGNANT NEOPLASM OF RIGHT AD 09/17/2018 GARO QUEZADA MD Ot E83. 42 HYPOMAGNESEMIA 09/17/2018 GARO QUEZADA MD Ot F17.210 NICOTINE DEPENDENCE, CIGARETTES, UNCOMPL 09/17/2018 GARO QUEZADA MD, Ot G40.909 EPILEPSY, UNSP, NOT INTRACTABLE, WITHOUT 09/17/2018 GARO QUEZADA MD Ot I25. 10 ATHSCL HEART DISEASE OF [place] CORONARY 09/17/2018 GARO QUEZADA MD Ot I25. 2 OLD MYOCARDIAL INFARCTION 09/17/2018 GARO QUEZADA MD Ot Z51. 11 ENCOUNTER FOR ANTINEOPLASTIC CHEMOTHERAP 09/17/2018 GARO QUEZADA MD Ot Z79. 82 SENIOR VICE PRESIDENT AND CHIEF INFORMATION OFFICER (CURRENT) USE OF ASPIRIN 09/17/2018 GARO QUEZADA MD Ot Z79.899 OTHER SENIOR VICE PRESIDENT AND CHIEF INFORMATION OFFICER (CURRENT) DRUG THERAPY 09/17/2018 GARO QUEZADA MD Ot Z93. 3 COLOSTOMY STATUS 09/18/2018 GARO QUEZADA MD Ot C34. 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 71 SECONDARY MALIGNANT NEOPLASM OF RIGHT AD 09/18/2018 GARO QUEZADA MD Ot E83. 42 HYPOMAGNESEMIA 09/18/2018 GARO QUEZADA MD Ot F17.210 NICOTINE DEPENDENCE, CIGARETTES, UNCOMPL 09/18/2018 GARO QUEZADA MD Ot G40.909 EPILEPSY, UNSP, NOT INTRACTABLE, WITHOUT 09/18/2018 GARO QUEZADA MD, Ot I25. 10 ATHSCL HEART DISEASE OF [place] CORONARY 09/18/2018 GARO QUEZADA MD, Ot I25. 2 OLD MYOCARDIAL INFARCTION 09/18/2018 GARO QUEZADA MD, Ot Z51. 11 ENCOUNTER FOR ANTINEOPLASTIC CHEMOTHERAP 09/18/2018 GARO QUEZADA MD, Ot Z79. 82 DETENTION (CURRENT) USE OF ASPIRIN 09/18/2018 GARO QUEZADA MD, Ot Z79.899 OTHER DETENTION (CURRENT) DRUG THERAPY 09/18/2018 GARO QUEZADA MD Ot Z93. 3 COLOSTOMY STATUS 09/18/2018 GARO QUEZADA MD Ot C34. 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 71 SECONDARY MALIGNANT NEOPLASM OF RIGHT AD 09/18/2018 GARO QUEZADA MD Ot E83. 42 HYPOMAGNESEMIA 09/18/2018 GARO QUEZADA MD Ot F17.210 NICOTINE DEPENDENCE, CIGARETTES, UNCOMPL 09/18/2018 GARO QUEZADA MD, Ot G40.909 EPILEPSY, UNSP, NOT INTRACTABLE, WITHOUT 09/18/2018 GARO QUEZADA MD Ot I25. 10 ATHSCL HEART DISEASE OF [place] CORONARY 09/18/2018 GARO QUEZADA MD, Ot I25. 2 OLD MYOCARDIAL INFARCTION 09/18/2018 GARO QUEZADA MD, Ot Z51. 11 ENCOUNTER FOR ANTINEOPLASTIC CHEMOTHERAP 09/18/2018 GARO QUEZADA MD, Ot Z79. 82 DETENTION (CURRENT) USE OF ASPIRIN 09/18/2018 GARO QUEZADA MD, Ot Z79.899 OTHER DETENTION (CURRENT) DRUG THERAPY 09/18/2018 GARO QUEZADA MD Ot Z93. 3 COLOSTOMY STATUS 10/09/2018 GARO QUEZADA MD, Ot C34. 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 71 SECONDARY MALIGNANT NEOPLASM OF RIGHT AD 10/09/2018 GARO QUEZADA MD, Ot E83. 42 HYPOMAGNESEMIA 10/09/2018 GARO QUEZADA MD Ot F17.210 NICOTINE DEPENDENCE, CIGARETTES, UNCOMPL 10/09/2018 GARO QUEZADA MD, Ot G40.909 EPILEPSY, UNSP, NOT INTRACTABLE, WITHOUT 10/09/2018 GARO QUEZADA MD, Ot I25. 10 ATHSCL HEART DISEASE OF [place] CORONARY 10/09/2018 GARO QUEZADA MD, Ot I25. 2 OLD MYOCARDIAL INFARCTION 10/09/2018 GARO QUEZADA MD Ot Z51. 11 ENCOUNTER FOR ANTINEOPLASTIC CHEMOTHERAP 10/09/2018 GARO QUEZADA MD Ot Z79. 82 SENIOR VICE PRESIDENT AND CHIEF INFORMATION OFFICER (CURRENT) USE OF ASPIRIN 10/09/2018 GARO QUEZADA MD, Ot Z79.899 OTHER DETENTION (CURRENT) DRUG THERAPY 10/09/2018 GARO QUEZADA MD Ot Z93. 3 COLOSTOMY STATUS 11/13/2018 GARO QUEZADA MD, Ot C34. 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 71 SECONDARY MALIGNANT NEOPLASM OF RIGHT AD 11/13/2018 GARO QUEZADA MD Ot E83. 42 HYPOMAGNESEMIA 11/13/2018 GARO QUEZADA MD Ot F17.210 NICOTINE DEPENDENCE, CIGARETTES, UNCOMPL 11/13/2018 GARO QUEZADA MD Ot G40.909 EPILEPSY, UNSP, NOT INTRACTABLE, WITHOUT 11/13/2018 GARO QUEZADA MD Ot I25. 10 ATHSCL HEART DISEASE OF [place] CORONARY 11/13/2018 GARO QUEZADA MD Ot I25. 2 OLD MYOCARDIAL INFARCTION 11/13/2018 GARO QUEZADA MD, Ot Z51. 11 ENCOUNTER FOR ANTINEOPLASTIC CHEMOTHERAP 11/13/2018 GARO QUEZADA MD, Ot Z79. 82 DETENTION (CURRENT) USE OF ASPIRIN 11/13/2018 GARO QUEZADA MD, Ot Z79.899 OTHER SENIOR VICE PRESIDENT AND CHIEF INFORMATION OFFICER (CURRENT) DRUG THERAPY 11/13/2018 GARO QUEZADA MD, Ot Z93. 3 COLOSTOMY STATUS 11/15/2018 GARO QUEZADA MD, Ot C34. 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 71 SECONDARY MALIGNANT NEOPLASM OF RIGHT AD 11/23/2018 GARO QUEZADA MD Ot E83. 42 HYPOMAGNESEMIA 11/23/2018 GARO QUEZADA MD Ot F17.210 NICOTINE DEPENDENCE, CIGARETTES, UNCOMPL 11/23/2018 GARO QUEZADA MD, Ot G40.909 EPILEPSY, UNSP, NOT INTRACTABLE, WITHOUT 11/23/2018 GARO QUEZADA MD, Ot I25. 10 ATHSCL HEART DISEASE OF [place] CORONARY 11/23/2018 GARO QUEZADA MD, Ot I25. 2 OLD MYOCARDIAL INFARCTION 11/23/2018 GARO QUEZADA MD, Ot Z51. 11 ENCOUNTER FOR ANTINEOPLASTIC CHEMOTHERAP 11/23/2018 GARO QUEZADA MD, Ot Z79. 82 DETENTION (CURRENT) USE OF ASPIRIN 11/23/2018 GARO QUEZADA MD, Ot Z79.899 OTHER SENIOR VICE PRESIDENT AND CHIEF INFORMATION OFFICER (CURRENT) DRUG THERAPY 11/23/2018 GARO QUEZADA MD, Ot Z93. 3 COLOSTOMY STATUS 01/01/2019 GARO QUEZADA MD, Ot C34. 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 71 SECONDARY MALIGNANT NEOPLASM OF RIGHT AD 01/01/2019 GARO QUEZADA MD Ot E83. 42 HYPOMAGNESEMIA 01/01/2019 GARO QUEZADA MD Ot F17.210 NICOTINE DEPENDENCE, CIGARETTES, UNCOMPL 01/01/2019 GARO QUEZADA MD, Ot G40.909 EPILEPSY, UNSP, NOT INTRACTABLE, WITHOUT 01/01/2019 GARO QUEZADA MD, Ot I25. 10 ATHSCL HEART DISEASE OF [place] CORONARY 01/01/2019 GARO QUEZADA MD, Ot I25. 2 OLD MYOCARDIAL INFARCTION 01/01/2019 GARO QUEZADA MD, Ot Z51. 11 ENCOUNTER FOR ANTINEOPLASTIC CHEMOTHERAP 01/01/2019 GARO QUEZADA MD, Ot Z79. 82 SENIOR VICE PRESIDENT AND CHIEF INFORMATION OFFICER (CURRENT) USE OF ASPIRIN 01/01/2019 GARO QUEZADA MD, Ot Z79.899 OTHER DETENTION (CURRENT) DRUG THERAPY 01/01/2019 GARO QUEZADA MD, Ot Z93. 3 COLOSTOMY STATUS 01/07/2019 GARO QUEZADA MD, Ot C34. 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 71 SECONDARY MALIGNANT NEOPLASM OF RIGHT AD 01/07/2019 GARO QUEZADA MD, Ot E83. 42 HYPOMAGNESEMIA 01/07/2019 GARO QUEZADA MD Ot F17.210 NICOTINE DEPENDENCE, CIGARETTES, UNCOMPL 01/07/2019 GARO QUEZADA MD, Ot G40.909 EPILEPSY, UNSP, NOT INTRACTABLE, WITHOUT 01/07/2019 GARO QUEZADA MD, Ot I25. 10 ATHSCL HEART DISEASE OF [place] CORONARY 01/07/2019 GARO QUEZADA MD Ot I25. 2 OLD MYOCARDIAL INFARCTION 01/07/2019 GARO QUEZADA MD, Ot Z51. 11 ENCOUNTER FOR ANTINEOPLASTIC CHEMOTHERAP 01/07/2019 GARO QUEZADA MD, Ot Z79. 82 DETENTION (CURRENT) USE OF ASPIRIN 01/07/2019 GARO QUEZADA MD, Ot Z79.899 OTHER SENIOR VICE PRESIDENT AND CHIEF INFORMATION OFFICER (CURRENT) DRUG THERAPY 01/07/2019 GARO QUEZADA MD, Ot Z93. 3 COLOSTOMY STATUS 01/10/2019 GARO QUEZADA MD Ot C34. 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 71 SECONDARY MALIGNANT NEOPLASM OF RIGHT AD 01/10/2019 GARO QUEZADA MD Ot E83. 42 HYPOMAGNESEMIA 01/10/2019 GARO QUEZADA MD Ot F17.210 NICOTINE DEPENDENCE, CIGARETTES, UNCOMPL 01/10/2019 GARO QUEZADA MD Ot G40.909 EPILEPSY, UNSP, NOT INTRACTABLE, WITHOUT 01/10/2019 GARO QUEZADA MD, Ot I25. 10 ATHSCL HEART DISEASE OF [place] CORONARY 01/10/2019 GARO QUEZADA MD, Ot I25. 2 OLD MYOCARDIAL INFARCTION 01/10/2019 GARO QUEZADA MD, Ot Z51. 11 ENCOUNTER FOR ANTINEOPLASTIC CHEMOTHERAP 01/10/2019 GARO QUEZADA MD Ot Z79. 82 SENIOR VICE PRESIDENT AND CHIEF INFORMATION OFFICER (CURRENT) USE OF ASPIRIN 01/10/2019 GARO QUEZADA MD Ot Z79.899 OTHER SENIOR VICE PRESIDENT AND CHIEF INFORMATION OFFICER (CURRENT) DRUG THERAPY 01/10/2019 GARO QUEZADA MD Ot Z93. 3 COLOSTOMY STATUS 01/15/2019 VALENTIN MEANS Ot C34.11 MALIGNANT NEOPLASM OF UPPER LOBE, RIGHT 01/15/2019 VALENTIN MEANS Ot F17.210 NICOTINE DEPENDENCE, CIGARETTES, UNCOMPL 01/15/2019 VALENTIN MEANS Ot G40.909 EPILEPSY, UNSP, NOT INTRACTABLE, WITHOUT 01/15/2019 VALENTIN MEANS Ot I25.10 ATHSCL HEART DISEASE OF [place] CORONARY 01/15/2019 VALENTIN MEANS Ot I25.2 OLD MYOCARDIAL INFARCTION 01/15/2019 VALENTIN MEANS Ot I73.89 OTHER SPECIFIED PERIPHERAL VASCULAR DISE 01/15/2019 VALENTIN MEANS Ot Z51.11 ENCOUNTER FOR ANTINEOPLASTIC CHEMOTHERAP 01/15/2019 VALENTIN MEANS Ot Z79.899 OTHER SENIOR VICE PRESIDENT AND CHIEF INFORMATION OFFICER (CURRENT) DRUG THERAPY 01/15/2019 GARO QUEZADA MD, Ot C34. 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 71 SECONDARY MALIGNANT NEOPLASM OF RIGHT AD 01/15/2019 GARO QUEZADA MD Ot E83. 42 HYPOMAGNESEMIA 01/15/2019 GARO QUEZADA MD Ot F17.210 NICOTINE DEPENDENCE, CIGARETTES, UNCOMPL 01/15/2019 GARO QUEZADA MD, Ot G40.909 EPILEPSY, UNSP, NOT INTRACTABLE, WITHOUT 01/15/2019 GARO QUEZADA MD Ot I25. 10 ATHSCL HEART DISEASE OF [place] CORONARY 01/15/2019 GARO QUEZADA MD, Ot I25. 2 OLD MYOCARDIAL INFARCTION 01/15/2019 GARO QUEZADA MD Ot Z51. 11 ENCOUNTER FOR ANTINEOPLASTIC CHEMOTHERAP 01/15/2019 GARO QUEZADA MD Ot Z79. 82 DETENTION (CURRENT) USE OF ASPIRIN 01/15/2019 GARO QUEZADA MD, Ot Z79.899 OTHER DETENTION (CURRENT) DRUG THERAPY 01/15/2019 GARO QUEZADA MD Ot Z93. 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, UNSPECI 01/15/2019 SERAFIN SINGER MD, Ot C71.9 MALIGNANT NEOPLASM OF BRAIN, UNSPECIFIED 01/15/2019 SERAFIN SINGER MD, Ot C78.0 0 SECONDARY MALIGNANT NEOPLASM OF UNSPECIF 01/15/2019 SERAFIN SINGER MD, Ot F17.2 10 NICOTINE DEPENDENCE, CIGARETTES, UNCOMPL 01/15/2019 SERAFIN SINGER MD Ot G40.9 09 EPILEPSY, UNSP, NOT INTRACTABLE, WITHOUT 01/15/2019 SERAFIN SINGER MD Ot G89.3 NEOPLASM RELATED PAIN (ACUTE) (CHRONIC) 01/15/2019 SERAFIN SINGER MD Ot K59.0 0 CONSTIPATION, UNSPECIFIED 01/15/2019 SERAFIN SINGER MD Ot R07.9 CHEST PAIN, UNSPECIFIED 01/15/2019 SERAFIN SINGER MD Ot R59.0 LOCALIZED ENLARGED LYMPH NODES 01/15/2019 SERAFIN SINGER MD Ot Z88.5 ALLERGY STATUS TO NARCOTIC AGENT STATUS 01/15/2019 SERAFIN SINGER MD Ot Z88.8 ALLERGY STATUS TO OTH DRUG/MEDS/BIOL SUB 01/15/2019 SERAFIN SINGER MD Ot Z92.2 1 PERSONAL HISTORY OF ANTINEOPLASTIC CHEMO 01/15/2019 SERAFIN SINGER MD Ot Z93.3 COLOSTOMY STATUS 01/18/2019 SERAFIN SINGER MD Ot C15.9 MALIGNANT NEOPLASM OF ESOPHAGUS, UNSPECI 01/18/2019 SERAFIN SINGER MD Ot C71.9 MALIGNANT NEOPLASM OF BRAIN, UNSPECIFIED 01/18/2019 SERAFIN SINGER MD Ot C78.0 0 SECONDARY MALIGNANT NEOPLASM OF UNSPECIF 01/18/2019 SERAFIN SINGER MD Ot F17.2 10 NICOTINE DEPENDENCE, CIGARETTES, UNCOMPL 01/18/2019 SERAFIN SINGER MD Ot G40.9 09 EPILEPSY, UNSP, NOT INTRACTABLE, WITHOUT 01/18/2019 SERAFIN SINGER MD Ot G89.3 NEOPLASM RELATED PAIN (ACUTE) (CHRONIC) 01/18/2019 SERAFIN SINGER MD Ot K59.0 0 CONSTIPATION, UNSPECIFIED 01/18/2019 SERAFIN SINGER MD Ot R07.9 CHEST PAIN, UNSPECIFIED 01/18/2019 SERAFIN SINGER MD Ot R59.0 LOCALIZED ENLARGED LYMPH NODES 01/18/2019 SREAFIN SINGER MD Ot Z88.5 ALLERGY STATUS TO NARCOTIC AGENT STATUS 01/18/2019 SERAFIN SINGER MD Ot Z88.8 ALLERGY STATUS TO OTH DRUG/MEDS/BIOL SUB 01/18/2019 SERAFIN SINGER MD Ot Z92.2 1 PERSONAL HISTORY OF ANTINEOPLASTIC CHEMO 01/18/2019 SERAFIN SINGER MD Ot Z93.3 COLOSTOMY STATUS 02/14/2019 DAMIEN ADKINS, GARO Ot C34. 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 71 SECONDARY MALIGNANT NEOPLASM OF RIGHT AD 02/14/2019 DAMIEN ADKINS, GARO Ot E83. 42 HYPOMAGNESEMIA 02/14/2019 GARO QUEZADA MD Ot F17.210 NICOTINE DEPENDENCE, CIGARETTES, UNCOMPL 02/14/2019 GARO QUEZADA MD, Ot G40.909 EPILEPSY, UNSP, NOT INTRACTABLE, WITHOUT 02/14/2019 GARO QUEZADA MD, Ot I25. 10 ATHSCL HEART DISEASE OF [place] CORONARY 02/14/2019 GARO QUEZADA MD, Ot I25. 2 OLD MYOCARDIAL INFARCTION 02/14/2019 GARO QUEZADA MD Ot Z51. 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 3 COLOSTOMY STATUS 04/24/2019 LINCOLN NAVAS Ot M53.86 OTHER SPECIFIED DORSOPATHIES, LUMBAR REG 04/24/2019 LINCOLN NAVAS Ot M54.5 LOW BACK PAIN 04/24/2019 LINCOLN NAVAS Ot M79.604 PAIN IN RIGHT LEG 04/24/2019 LINCOLN NAVAS Ot Z98.890 OTHER SPECIFIED POSTPROCEDURAL STATES 04/29/2019 GARO QUEZADA MD Ot C34. 11 MALIGNANT NEOPLASM OF UPPER LOBE, RIGHT 04/29/2019 GARO QUEZADA MD Ot C79. 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 42 HYPOMAGNESEMIA 04/29/2019 GARO QUEZADA MD Ot F17.210 NICOTINE DEPENDENCE, CIGARETTES, UNCOMPL 04/29/2019 GARO QUEZADA MD, Ot G40.909 EPILEPSY, UNSP, NOT INTRACTABLE, WITHOUT 04/29/2019 GARO QUEZADA MD, Ot I25. 10 ATHSCL HEART DISEASE OF [place] CORONARY 04/29/2019 GARO QUEZADA MD, Ot I25. 2 OLD MYOCARDIAL INFARCTION 04/29/2019 GARO QUEZADA MD, Ot Z79. 82 DETENTION (CURRENT) USE OF ASPIRIN 04/29/2019 GARO QUEZADA MD, Ot Z79.899 OTHER SENIOR VICE PRESIDENT AND CHIEF INFORMATION OFFICER (CURRENT) DRUG THERAPY 04/29/2019 GARO QUEZADA MD, Ot Z93. 3 COLOSTOMY STATUS 04/30/2019 GARO QUEZADA MD Ot C34. 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 42 HYPOMAGNESEMIA 04/30/2019 GARO QUEZADA MD Ot F17.210 NICOTINE DEPENDENCE, CIGARETTES, UNCOMPL 04/30/2019 GARO QUEZADA MD, Ot G40.909 EPILEPSY, UNSP, NOT INTRACTABLE, WITHOUT 04/30/2019 GARO QUEZADA MD, Ot I25. 10 ATHSCL HEART DISEASE OF [place] CORONARY 04/30/2019 GARO QUEZADA MD, Ot I25. 2 OLD MYOCARDIAL INFARCTION 04/30/2019 GARO QUEZADA MD, Ot Z79. 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 3 COLOSTOMY STATUS 04/30/2019 GARO QUEZADA MD, Ot C34. 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 42 HYPOMAGNESEMIA 04/30/2019 GARO QUEZADA MD Ot F17.210 NICOTINE DEPENDENCE, CIGARETTES, UNCOMPL 04/30/2019 GARO QUEZADA MD Ot G40.909 EPILEPSY, UNSP, NOT INTRACTABLE, WITHOUT 04/30/2019 GARO QUEZADA MD Ot I25. 10 ATHSCL HEART DISEASE OF [place] CORONARY 04/30/2019 GARO QUEZADA MD Ot I25. 2 OLD MYOCARDIAL INFARCTION 04/30/2019 GARO QUEZADA MD, Ot Z79. 82 DETENTION (CURRENT) USE OF ASPIRIN 04/30/2019 GARO QUEZADA MD Ot Z79.899 OTHER DETENTION (CURRENT) DRUG THERAPY 04/30/2019 GARO QUEZADA MD, Ot Z93. 3 COLOSTOMY STATUS 05/05/2019 GARO QUEZADA MD, Ot C34. 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 42 HYPOMAGNESEMIA 05/05/2019 GARO QUEZADA MD Ot F17.210 NICOTINE DEPENDENCE, CIGARETTES, UNCOMPL 05/05/2019 GARO QUEZADA MD, Ot G40.909 EPILEPSY, UNSP, NOT INTRACTABLE, WITHOUT 05/05/2019 GARO QUEZADA MD, Ot I25. 10 ATHSCL HEART DISEASE OF [place] CORONARY 05/05/2019 GARO QUEZADA MD, Ot I25. 2 OLD MYOCARDIAL INFARCTION 05/05/2019 GARO QUEZADA MD, Ot Z79. 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 3 COLOSTOMY STATUS 05/06/2019 JIM OTT MD, Ot C34.11 MALIGNANT NEOPLASM OF UPPER LOBE, RIGHT 05/06/2019 JIM OTT MD, Ot C79.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 05/06/2019 JIM OTT MD Ot C34.11 MALIGNANT NEOPLASM OF UPPER LOBE, RIGHT 05/06/2019 JIM OTT MD, Ot C79.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 05/06/2019 JIM OTT MD Ot Z72.0 TOBACCO USE 05/06/2019 JIM OTT MD Ot C34.11 MALIGNANT NEOPLASM OF UPPER LOBE, RIGHT 05/06/2019 JIM OTT MD Ot C79.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 05/06/2019 JIM OTT MD, Ot C34.11 MALIGNANT NEOPLASM OF UPPER LOBE, RIGHT 05/06/2019 JIM OTT MD Ot C79.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 05/06/2019 JIM OTT MD Ot E27.9 DISORDER OF ADRENAL GL[place], UNSPECIFIED 05/06/2019 EDA ADKINS, VIVIANA Z Ot R91.8 OTHER NONSPECIFIC ABNORMAL FINDING OF [place] 05/06/2019 EDA ADKINS, VIVIANA Z Ot T82.524A DISPLACEMENT OF INFUSION CATHETER, INITI 05/06/2019 GARO QUEZADA MD Ot G93. 9 DISORDER OF BRAIN, UNSPECIFIED 05/06/2019 GARO QUEZADA MD Ot H53. 2 DIPLOPIA 05/06/2019 VALENTIN MEANS Ot C34.11 MALIGNANT NEOPLASM OF UPPER LOBE, RIGHT 05/06/2019 VALENTIN MEANS Ot F17.210 NICOTINE DEPENDENCE, CIGARETTES, UNCOMPL 05/06/2019 VALENTIN MEANS Ot G40.909 EPILEPSY, UNSP, NOT INTRACTABLE, WITHOUT 05/06/2019 VALENTIN MEANS Ot I25.10 ATHSCL HEART DISEASE OF [place] CORONARY 05/06/2019 VALENTIN MEANS Ot I25.2 OLD MYOCARDIAL INFARCTION 05/06/2019 VALENTIN MEANS Ot I73.89 OTHER SPECIFIED PERIPHERAL VASCULAR DISE 05/06/2019 VALENTIN MEANS Ot Z51.11 ENCOUNTER FOR ANTINEOPLASTIC CHEMOTHERAP 05/06/2019 VALENTIN MEANS Ot Z79.899 OTHER DETENTION (CURRENT) DRUG THERAPY 05/06/2019 GARO QUEZADA MD Ot C34. 11 MALIGNANT NEOPLASM OF UPPER LOBE, RIGHT 05/06/2019 GARO QUEZADA MD Ot R05 COUGH 05/06/2019 GARO QUEZADA MD Ot Z95.828 PRESENCE OF OTHER VASCULAR IMPLANTS AND 05/06/2019 Ot C34.11 MAL IGNANT NEOPLASM OF UPPER LOBE, RIGHT 05/06/2019 Ot C79.31 SEC ONDARY MALIGNANT NEOPLASM OF BRAIN 05/06/2019 Ot I67.82 CER EBRAL ISCHEMIA 05/06/2019 ERMIAS ROBLESP Ot C34.11 MALIGNANT NEOPLASM OF UPPER LOBE, RIGHT 05/06/2019 ERMIAS ROBLES Ot C44.702 UNSP MALIGNANT NEOPLASM SKIN/ RIGHT LOWE 05/06/2019 ERMIAS ROBLESP Ot C79.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 05/06/2019 ERMIAS ROBLESP Ot C79.71 SECONDARY MALIGNANT NEOPLASM OF RIGHT AD 05/06/2019 GARO QUEZADA MD Ot C34. 11 MALIGNANT NEOPLASM OF UPPER LOBE, RIGHT 05/06/2019 GARO QUEZADA MD Ot C79. 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 05/06/2019 GARO QUEZADA MD, Ot Z95.828 PRESENCE OF OTHER VASCULAR IMPLANTS AND 05/06/2019 LINCOLN NAVAS Ot M53.86 OTHER SPECIFIED DORSOPATHIES, LUMBAR REG 05/06/2019 LINCOLN NAVAS Ot M54.5 LOW BACK PAIN 05/06/2019 LINCOLN NAVAS Ot M79.604 PAIN IN RIGHT LEG 05/06/2019 LINCOLN NAVAS Ot Z98.890 OTHER SPECIFIED POSTPROCEDURAL STATES 05/06/2019 GARO QUEZADA MD Ot C34. 11 MALIGNANT NEOPLASM OF UPPER LOBE, RIGHT 05/06/2019 GARO QUEZADA MD, Ot C79. 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 05/06/2019 GARO QUEZADA MD, Ot C79. 71 SECONDARY MALIGNANT NEOPLASM OF RIGHT AD 05/06/2019 GARO QUEZADA MD Ot E83. 42 HYPOMAGNESEMIA 05/06/2019 GARO QUEZADA MD Ot F17.210 NICOTINE DEPENDENCE, CIGARETTES, UNCOMPL 05/06/2019 GARO QUEZADA MD Ot G40.909 EPILEPSY, UNSP, NOT INTRACTABLE, WITHOUT 05/06/2019 GARO QUEZADA MD, Ot I25. 10 ATHSCL HEART DISEASE OF [place] CORONARY 05/06/2019 GARO QUEZADA MD, Ot I25. 2 OLD MYOCARDIAL INFARCTION 05/06/2019 GARO QUEZADA MD Ot Z79. 82 SENIOR VICE PRESIDENT AND CHIEF INFORMATION OFFICER (CURRENT) USE OF ASPIRIN 05/06/2019 GARO QUEZADA MD Ot Z79.899 OTHER SENIOR VICE PRESIDENT AND CHIEF INFORMATION OFFICER (CURRENT) DRUG THERAPY 05/06/2019 GARO QUEZADA MD Ot Z93. 3 COLOSTOMY STATUS 05/08/2019 LINCOLN NAVAS Ot S72.041D DISP FX OF BASE OF NK OF R FEMR, 7THD 05/08/2019 LINCOLN NAVAS Ot Z98.890 OTHER SPECIFIED POSTPROCEDURAL STATES 05/08/2019 LINCOLN NAVAS Ot S72.041D DISP FX OF BASE OF NK OF R FEMR, 7THD 05/08/2019 LINCOLN NAVAS Ot Z98.890 OTHER SPECIFIED POSTPROCEDURAL STATES 05/08/2019 LINCOLN NAVAS Ot S72.041D DISP FX OF BASE OF NK OF R FEMR, 05/08/2019 LINCOLN NAVAS Ot Z98.890 OTHER SPECIFIED POSTPROCEDURAL STATES 05/08/2019 LINCOLN NAVAS Ot M53.86 OTHER SPECIFIED DORSOPATHIES, LUMBAR REG 05/08/2019 LINCOLN NAVAS Ot M54.5 LOW BACK PAIN 05/08/2019 LINCOLN NAVAS Ot M79.604 PAIN IN RIGHT LEG 05/08/2019 LINCOLN NAVAS Ot Z98.890 OTHER SPECIFIED POSTPROCEDURAL STATES 05/16/2019 GARO QUEZADA MD Ot C34. 11 MALIGNANT NEOPLASM OF UPPER LOBE, RIGHT 05/16/2019 GARO QUEZADA MD Ot C79. 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 05/16/2019 GARO QUEZADA MD Ot C79. 71 SECONDARY MALIGNANT NEOPLASM OF RIGHT AD 05/16/2019 GARO QUEZADA MD Ot E83. 42 HYPOMAGNESEMIA 05/16/2019 GARO QUEZADA MD Ot F17.210 NICOTINE DEPENDENCE, CIGARETTES, UNCOMPL 05/16/2019 GARO QUEZADA MD Ot G40.909 EPILEPSY, UNSP, NOT INTRACTABLE, WITHOUT 05/16/2019 GARO QUEZADA MD Ot I25. 10 ATHSCL HEART DISEASE OF [place] CORONARY 05/16/2019 GARO QUEZADA MD Ot I25. 2 OLD MYOCARDIAL INFARCTION 05/16/2019 GARO QUEZADA MD Ot Z79. 82 DETENTION (CURRENT) USE OF ASPIRIN 05/16/2019 GARO QUEZADA MD Ot Z79.899 OTHER DETENTION (CURRENT) DRUG THERAPY 05/16/2019 GARO QUEZADA MD Ot Z93. 3 COLOSTOMY STATUS 05/22/2019 LINCOLN NAVAS Ot S72.041D DISP FX OF BASE OF NK OF R FEMR, 05/22/2019 LINCOLN NAVAS Ot Z98.890 OTHER SPECIFIED POSTPROCEDURAL STATES 06/07/2019 LINCOLN NAVAS Ot S72.009D FX UNSP PRT OF NK OF UNSP FEMR, 06/07/2019 KING LINCOLN Romina TENORIO Ot X58.XXXD EXPOSURE TO OTHER SPECIFIED FACTORS, SUB 07/29/2019 GARO QUEZADA MD, Ot C34. 11 MALIGNANT NEOPLASM OF UPPER LOBE, RIGHT 07/29/2019 GARO QUEZADA MD Ot C79. 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 07/29/2019 GARO QUEZADA MD, Ot C79. 71 SECONDARY MALIGNANT NEOPLASM OF RIGHT AD 07/29/2019 GARO QUEZADA MD Ot E83. 42 HYPOMAGNESEMIA 07/29/2019 GARO QUEZADA MD Ot F17.210 NICOTINE DEPENDENCE, CIGARETTES, UNCOMPL 07/29/2019 GARO QUEZADA MD, Ot G40.909 EPILEPSY, UNSP, NOT INTRACTABLE, WITHOUT 07/29/2019 GARO QUEZADA MD Ot I25. 10 ATHSCL HEART DISEASE OF [place] CORONARY 07/29/2019 GARO QUEZADA MD Ot I25. 2 OLD MYOCARDIAL INFARCTION 07/29/2019 GARO QUEZADA MD Ot Z79. 82 SENIOR VICE PRESIDENT AND CHIEF INFORMATION OFFICER (CURRENT) USE OF ASPIRIN 07/29/2019 GARO QUEZADA MD Ot Z79.899 OTHER DETENTION (CURRENT) DRUG THERAPY 07/29/2019 GARO QUEZADA MD Ot Z93. 3 COLOSTOMY STATUS 08/01/2019 GARO QUEZADA MD, Ot C34. 11 MALIGNANT NEOPLASM OF UPPER LOBE, RIGHT 08/01/2019 GARO QUEZADA MD Ot C79. 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 08/01/2019 GARO QUEZADA MD Ot C79. 71 SECONDARY MALIGNANT NEOPLASM OF RIGHT AD 08/01/2019 GARO QUEZADA MD Ot E83. 42 HYPOMAGNESEMIA 08/01/2019 GARO QUEZADA MD Ot F17.210 NICOTINE DEPENDENCE, CIGARETTES, UNCOMPL 08/01/2019 GARO QUEZADA MD Ot G40.909 EPILEPSY, UNSP, NOT INTRACTABLE, WITHOUT 08/01/2019 GARO QUEZADA MD Ot I25. 10 ATHSCL HEART DISEASE OF [place] CORONARY 08/01/2019 GARO QUEZADA MD Ot I25. 2 OLD MYOCARDIAL INFARCTION 08/01/2019 GARO QUEZADA MD Ot Z79. 82 DETENTION (CURRENT) USE OF ASPIRIN 08/01/2019 GARO QUEZADA MD, Ot Z79.899 OTHER SENIOR VICE PRESIDENT AND CHIEF INFORMATION OFFICER (CURRENT) DRUG THERAPY 08/01/2019 GARO QUEZADA MD Ot Z93. 3 COLOSTOMY STATUS 08/27/2019 GARO QUEZADA MD, Ot C34. 11 MALIGNANT NEOPLASM OF UPPER LOBE, RIGHT 08/27/2019 GARO QUEZADA MD, Ot C79. 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 08/27/2019 GARO QUEZADA MD, Ot C79. 71 SECONDARY MALIGNANT NEOPLASM OF RIGHT AD 08/27/2019 GARO QUEZADA MD, Ot E83. 42 HYPOMAGNESEMIA 08/27/2019 GARO QUEZADA MD Ot F17.210 NICOTINE DEPENDENCE, CIGARETTES, UNCOMPL 08/27/2019 GARO QUEZADA MD, Ot G40.909 EPILEPSY, UNSP, NOT INTRACTABLE, WITHOUT 08/27/2019 GARO QUEZADA MD, Ot I25. 10 ATHSCL HEART DISEASE OF [place] CORONARY 08/27/2019 GARO QUEZADA MD, Ot I25. 2 OLD MYOCARDIAL INFARCTION 08/27/2019 GARO QUEZADA MD, Ot Z79. 82 SENIOR VICE PRESIDENT AND CHIEF INFORMATION OFFICER (CURRENT) USE OF ASPIRIN 08/27/2019 GARO QUEZADA MD Ot Z79.899 OTHER DETENTION (CURRENT) DRUG THERAPY 08/27/2019 GARO QUEZADA MD, Ot Z93. 3 COLOSTOMY STATUS 08/27/2019 GARO QUEZADA MD, Ot C34. 11 MALIGNANT NEOPLASM OF UPPER LOBE, RIGHT 08/27/2019 GARO QUEZADA MD Ot C79. 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 08/27/2019 GARO QUEZADA MD, Ot C79. 71 SECONDARY MALIGNANT NEOPLASM OF RIGHT AD 08/27/2019 GARO QUEZADA MD Ot E83. 42 HYPOMAGNESEMIA 08/27/2019 GARO QUEZADA MD Ot F17.210 NICOTINE DEPENDENCE, CIGARETTES, UNCOMPL 08/27/2019 GARO QUEZADA MD, Ot G40.909 EPILEPSY, UNSP, NOT INTRACTABLE, WITHOUT 08/27/2019 GARO QUEZADA MD Ot I25. 10 ATHSCL HEART DISEASE OF [place] CORONARY 08/27/2019 GARO QUEZADA MD Ot I25. 2 OLD MYOCARDIAL INFARCTION 08/27/2019 GARO QUEZADA MD, Ot Z79. 82 DETENTION (CURRENT) USE OF ASPIRIN 08/27/2019 GARO QUEZADA MD Ot Z79.899 OTHER SENIOR VICE PRESIDENT AND CHIEF INFORMATION OFFICER (CURRENT) DRUG THERAPY 08/27/2019 GARO QUEZADA MD Ot Z93. 3 COLOSTOMY STATUS 08/30/2019 GARO QUEZADA MD, Ot C34. 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 42 HYPOMAGNESEMIA 08/30/2019 GARO QUEZADA MD Ot F17.210 NICOTINE DEPENDENCE, CIGARETTES, UNCOMPL 08/30/2019 GARO QUEZADA MD, Ot G40.909 EPILEPSY, UNSP, NOT INTRACTABLE, WITHOUT 08/30/2019 GARO QUEZADA MD Ot I25. 10 ATHSCL HEART DISEASE OF [place] CORONARY 08/30/2019 GARO QUEZADA MD Ot I25. 2 OLD MYOCARDIAL INFARCTION 08/30/2019 GARO QUEZADA MD Ot Z79. 82 SENIOR VICE PRESIDENT AND CHIEF INFORMATION OFFICER (CURRENT) USE OF ASPIRIN 08/30/2019 GARO QUEZADA MD Ot Z79.899 OTHER DETENTION (CURRENT) DRUG THERAPY 08/30/2019 GARO QUEZADA MD Ot Z93. 3 COLOSTOMY STATUS 09/04/2019 ISRA CHURCH RHIANNON Ot C34.91 MALIGNANT NEOPLASM OF UNSP PART OF RIGHT 09/04/2019 ISRA CHURCH RHIANNON Ot C78.89 SECONDARY MALIGNANT NEOPLASM OF OTHER DI 09/04/2019 ISRA CHURCH RHIANNON Ot C79.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 09/04/2019 ISRA CHURCH RHIANNON Ot E83.42 HYPOMAGNESEMIA 09/04/2019 ISRA CHURCH RHIANNON Ot E87.3 ALKALOSIS 09/04/2019 ISRA CHURCH RHIANNON Ot E87.6 HYPOKALEMIA 09/04/2019 ISRA CHURHC RHIANNON Ot F17.21 0 NICOTINE DEPENDENCE, CIGARETTES, UNCOMPL 09/04/2019 ISRA CHURCH RHIANNON Ot F41.9 ANXIETY DISORDER, UNSPECIFIED 09/04/2019 ISRA CHURCH RHIANNON Ot G40.90 9 EPILEPSY, UNSP, NOT INTRACTABLE, WITHOUT 09/04/2019 DHALIWAL DO, RHIANNON Ot I25.10 ATHSCL HEART DISEASE OF [place] CORONARY 09/04/2019 DHALIWAL DO, RHIANNON Ot I25.2 OLD MYOCARDIAL INFARCTION 09/04/2019 DHALIWAL DO, RHIANNON Ot J18.9 PNEUMONIA, UNSPECIFIED ORGANISM 09/04/2019 DHALIWAL DO, RHIANNON Ot J43.9 EMPHYSEMA, UNSPECIFIED 09/04/2019 DHALIWAL DO, RHIANNON Ot J98.11 ATELECTASIS 09/04/2019 DHALIWAL DO, RHIANNON Ot K21.9 GASTRO-ESOPHAGEAL REFLUX DISEASE WITHOUT 09/04/2019 DHALIWAL DO, RHIANNON Ot K29.71 GASTRITIS, UNSPECIFIED, WITH BLEEDING 09/04/2019 DHALIWAL DO, RHIANNON Ot K56.69 0 OTHER PARTIAL INTESTINAL OBSTRUCTION 09/04/2019 DHALIWAL DO, RHIANNON Ot K92.0 HEMATEMESIS 09/04/2019 DHALIWAL DO, RHIANNON Ot M19.01 1 PRIMARY OSTEOARTHRITIS, RIGHT SHOULDER 09/04/2019 DHALIWAL DO, RHIANONN Ot M19.01 2 PRIMARY OSTEOARTHRITIS, LEFT SHOULDER 09/04/2019 DHALIWAL DO, RHIANNON Ot M19.04 1 PRIMARY OSTEOARTHRITIS, RIGHT HAND 09/04/2019 DHALIWAL DO, RHIANNON Ot M19.04 2 PRIMARY OSTEOARTHRITIS, LEFT HAND 09/04/2019 DHALIWAL DO, RHIANNON Ot R64 CACHEXIA 09/04/2019 DHALIWAL DO, RHIANNON Ot Z89.42 1 ACQUIRED ABSENCE OF OTHER RIGHT TOE(S) 09/04/2019 DHALIWAL DO, RHIANNON Ot Z92.21 PERSONAL HISTORY OF ANTINEOPLASTIC CHEMO 09/04/2019 DHALIWAL DO, RHIANNON Ot Z93.3 COLOSTOMY STATUS 09/04/2019 DHALIWAL DO, RHIANNON Ot Z95.5 PRESENCE OF CORONARY ANGIOPLASTY IMPLANT 09/04/2019 DHALIWAL DO, RHIANNON Ot Z95.82 8 PRESENCE OF OTHER VASCULAR IMPLANTS AND 11/25/2019 GARO QUEZADA MD Ot C34. 11 MALIGNANT NEOPLASM OF UPPER LOBE, RIGHT 11/25/2019 GARO QUEZADA MD Ot C79. 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 11/25/2019 GARO QUEZADA MD Ot C79. 71 SECONDARY MALIGNANT NEOPLASM OF RIGHT AD 11/25/2019 GARO QUEZADA MD Ot E83. 42 HYPOMAGNESEMIA 11/25/2019 GARO QUEZADA MD Ot F17.210 NICOTINE DEPENDENCE, CIGARETTES, UNCOMPL 11/25/2019 GARO QUEZADA MD Ot G40.909 EPILEPSY, UNSP, NOT INTRACTABLE, WITHOUT 11/25/2019 GARO QUEZADA MD Ot I25. 10 ATHSCL HEART DISEASE OF [place] CORONARY 11/25/2019 GARO QUEZADA MD Ot I25. 2 OLD MYOCARDIAL INFARCTION 11/25/2019 GARO QUEZADA MD Ot Z79. 82 DETENTION (CURRENT) USE OF ASPIRIN 11/25/2019 GARO QUEZADA MD Ot Z79.899 OTHER DETENTION (CURRENT) DRUG THERAPY 11/25/2019 GARO QUEZADA MD Ot Z93. 3 COLOSTOMY STATUS 11/26/2019 GARO QUEZADA MD Ot C34. 11 MALIGNANT NEOPLASM OF UPPER LOBE, RIGHT 11/26/2019 GARO QUEZADA MD Ot C79. 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 11/26/2019 GARO QUEZADA MD Ot C79. 71 SECONDARY MALIGNANT NEOPLASM OF RIGHT AD 11/26/2019 GARO QUEZADA MD Ot E83. 42 HYPOMAGNESEMIA 11/26/2019 GARO QUEZADA MD Ot F17.210 NICOTINE DEPENDENCE, CIGARETTES, UNCOMPL 11/26/2019 GARO QUEZADA MD Ot G40.909 EPILEPSY, UNSP, NOT INTRACTABLE, WITHOUT 11/26/2019 GARO QUEZADA MD Ot I25. 10 ATHSCL HEART DISEASE OF [place] CORONARY 11/26/2019 GARO QUEZADA MD Ot I25. 2 OLD MYOCARDIAL INFARCTION 11/26/2019 GARO QUEZADA MD Ot Z79. 82 DETENTION (CURRENT) USE OF ASPIRIN 11/26/2019 GARO QUEZADA MD Ot Z79.899 OTHER DETENTION (CURRENT) DRUG THERAPY 11/26/2019 GARO QUEZADA MD Ot Z93. 3 COLOSTOMY STATUS 12/01/2019 GARO QUEZADA MD Ot C34. 11 MALIGNANT NEOPLASM OF UPPER LOBE, RIGHT 12/01/2019 GARO QUEZADA MD Ot C79. 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 12/01/2019 GARO QUEZADA MD Ot C79. 71 SECONDARY MALIGNANT NEOPLASM OF RIGHT AD 12/01/2019 GARO QUEZADA MD Ot E83. 42 HYPOMAGNESEMIA 12/01/2019 GARO QUEZADA MD Ot F17.210 NICOTINE DEPENDENCE, CIGARETTES, UNCOMPL 12/01/2019 GARO QUEZADA MD Ot G40.909 EPILEPSY, UNSP, NOT INTRACTABLE, WITHOUT 12/01/2019 GARO QUEZADA MD, Ot I25. 10 ATHSCL HEART DISEASE OF [place] CORONARY 12/01/2019 GARO QUEZADA MD, Ot I25. 2 OLD MYOCARDIAL INFARCTION 12/01/2019 GARO QUEZADA MD, Ot Z79. 82 SENIOR VICE PRESIDENT AND CHIEF INFORMATION OFFICER (CURRENT) USE OF ASPIRIN 12/01/2019 GARO QUEZADA MD, Ot Z79.899 OTHER DETENTION (CURRENT) DRUG THERAPY 12/01/2019 GARO QUEZADA MD, Ot Z93. 3 COLOSTOMY STATUS 12/09/2019 GARO QUEZADA MD, Ot C34. 11 MALIGNANT NEOPLASM OF UPPER LOBE, RIGHT 12/09/2019 GARO QUEZADA MD, Ot C79. 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 12/09/2019 GARO QUEZADA MD, Ot C79. 71 SECONDARY MALIGNANT NEOPLASM OF RIGHT AD 12/09/2019 GARO QUEZADA MD Ot E83. 42 HYPOMAGNESEMIA 12/09/2019 GARO QUEZADA MD Ot F17.210 NICOTINE DEPENDENCE, CIGARETTES, UNCOMPL 12/09/2019 GARO QUEZDAA MD, Ot G40.909 EPILEPSY, UNSP, NOT INTRACTABLE, WITHOUT 12/09/2019 GARO QUEZADA MD, Ot I25. 10 ATHSCL HEART DISEASE OF [place] CORONARY 12/09/2019 GARO QUEZADA MD Ot I25. 2 OLD MYOCARDIAL INFARCTION 12/09/2019 GARO QUEZADA MD, Ot Z79. 82 DETENTION (CURRENT) USE OF ASPIRIN 12/09/2019 GARO QUEZADA MD, Ot Z79.899 OTHER SENIOR VICE PRESIDENT AND CHIEF INFORMATION OFFICER (CURRENT) DRUG THERAPY 12/09/2019 GARO QUEZADA MD, Ot Z93. 3 COLOSTOMY STATUS 12/10/2019 GARO QUEZADA MD Ot C34. 11 MALIGNANT NEOPLASM OF UPPER LOBE, RIGHT 12/10/2019 GARO QUEZADA MD Ot C79. 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 12/10/2019 GARO QUEZADA MD, Ot C79. 71 SECONDARY MALIGNANT NEOPLASM OF RIGHT AD 12/10/2019 GARO QUEZADA MD, Ot E83. 42 HYPOMAGNESEMIA 12/10/2019 GARO QUEZADA MD, Ot F17.210 NICOTINE DEPENDENCE, CIGARETTES, UNCOMPL 12/10/2019 GARO QUEZADA MD, Ot G40.909 EPILEPSY, UNSP, NOT INTRACTABLE, WITHOUT 12/10/2019 GARO QUEZADA MD, Ot I25. 10 ATHSCL HEART DISEASE OF [place] CORONARY 12/10/2019 GARO QUEZADA MD, Ot I25. 2 OLD MYOCARDIAL INFARCTION 12/10/2019 GARO QUEZADA MD, Ot Z79. 82 SENIOR VICE PRESIDENT AND CHIEF INFORMATION OFFICER (CURRENT) USE OF ASPIRIN 12/10/2019 GARO QUEZADA MD, Ot Z79.899 OTHER DETENTION (CURRENT) DRUG THERAPY 12/10/2019 GARO QUEZADA MD, Ot Z93. 3 COLOSTOMY STATUS 12/13/2019 GARO QUEZADA MD, Ot C34. 11 MALIGNANT NEOPLASM OF UPPER LOBE, RIGHT 12/13/2019 GARO QUEZADA MD, Ot C79. 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 71 SECONDARY MALIGNANT NEOPLASM OF RIGHT AD 12/13/2019 GARO QUEZADA MD, Ot E83. 42 HYPOMAGNESEMIA 12/13/2019 GARO QUEZADA MD, Ot F17.210 NICOTINE DEPENDENCE, CIGARETTES, UNCOMPL 12/13/2019 GARO QUEZADA MD, Ot G40.909 EPILEPSY, UNSP, NOT INTRACTABLE, WITHOUT 12/13/2019 GARO QUEZADA MD, Ot I25. 10 ATHSCL HEART DISEASE OF [place] CORONARY 12/13/2019 GARO QUEZADA MD, Ot I25. 2 OLD MYOCARDIAL INFARCTION 12/13/2019 GARO QUEZADA MD, Ot Z79. 82 SENIOR VICE PRESIDENT AND CHIEF INFORMATION OFFICER (CURRENT) USE OF ASPIRIN 12/13/2019 GARO QUEZADA MD, Ot Z79.899 OTHER DETENTION (CURRENT) DRUG THERAPY 12/13/2019 GARO QUEZADA MD, Ot Z93. 3 COLOSTOMY STATUS 01/02/2020 GARO QUEZADA MD, Ot C34. 11 MALIGNANT NEOPLASM OF UPPER LOBE, RIGHT 01/02/2020 GARO QUEZADA MD, Ot C79. 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 01/02/2020 GARO QUEZADA MD, Ot C79. 71 SECONDARY MALIGNANT NEOPLASM OF RIGHT AD 01/02/2020 GARO QUEZADA MD, Ot D64. 89 OTHER SPECIFIED ANEMIAS 01/02/2020 GARO QUEZADA MD, Ot E78. 00 PURE HYPERCHOLESTEROLEMIA, UNSPECIFIED 01/02/2020 GARO QUEZADA MD, Ot E83. 42 HYPOMAGNESEMIA 01/02/2020 GARO QUEZADA MD, Ot F17.210 NICOTINE DEPENDENCE, CIGARETTES, UNCOMPL 01/02/2020 AGRO QUEZADA MD, Ot G40.909 EPILEPSY, UNSP, NOT INTRACTABLE, WITHOUT 01/02/2020 GARO QUEZADA MD, Ot I25. 10 ATHSCL HEART DISEASE OF [place] CORONARY 01/02/2020 GARO QUEZADA MD, Ot I25. 2 OLD MYOCARDIAL INFARCTION 01/02/2020 GARO QUEZADA MD, Ot I50. 9 HEART FAILURE, UNSPECIFIED 01/02/2020 GARO QUEZADA MD, Ot I63. 9 CEREBRAL INFARCTION, UNSPECIFIED 01/02/2020 GARO QUEZADA MD, Ot I73. 9 PERIPHERAL VASCULAR DISEASE, UNSPECIFIED 01/02/2020 GARO QUEZADA MD, Ot K56.609 UNSP INTESTNL OBST, UNSP TO PARTIAL V 01/02/2020 GARO QUEZADA MD, Ot M19. 90 UNSPECIFIED OSTEOARTHRITIS, UNSPECIFIED 01/02/2020 GARO QUEZADA MD, Ot M97.01XA PERIPROSTH FRACTURE AROUND INTERNAL PROS 01/02/2020 GARO QUEZADA MD, Ot Z79. 82 DETENTION (CURRENT) USE OF ASPIRIN 01/02/2020 GARO QUEZADA MD, Ot Z79.899 OTHER DETENTION (CURRENT) DRUG THERAPY 01/02/2020 GARO QUEZADA MD, Ot Z82. 0 FAMILY HISTORY OF EPILEPSY AND OTH DIS O 01/02/2020 GARO QUEZADA MD, Ot Z93. 3 COLOSTOMY STATUS 01/02/2020 GARO QUEZADA MD, Ot Z95. 1 PRESENCE OF AORTOCORONARY BYPASS GRAFT 01/02/2020 GARO QUEZADA MD, Ot Z95. 5 PRESENCE OF CORONARY ANGIOPLASTY IMPLANT Procedures There is no data. Results Test Result Range Complete blood count (CBC) with automate d white blood cell (WBC) differential - 01/15/19 16:27 Blood leukocytes automated count (number/volume) 9.9 10*3/uL 4.3-11.0 Blood erythrocytes automated count (number/volume) 4.18 10*6/uL 4.35-5.85 Venous blood hemoglobin measurement (mass/volume) 12.7 g/dL 13.3-17.7 Blood hematocrit (volume fraction) 38 % 40-54 Automated erythrocyte mean corpuscular volume 90 [ foz_us] 80-99 Automated erythrocyte mean corpuscular h emoglobin (mass per erythrocyte) 30 pg 25-34 Automated erythrocyte mean corpuscular h emoglobin concentration measurement (mass/volume) 34 g/dL 32-36 Automated erythrocyte distribution width ratio 13. 2 % 10.0- 14.5 Automated blood platelet count (count/volume) 445 10*3/uL 130-400 Automated blood platelet mean volume measurement 8.8 [foz_us] 7.4-10.4 Automated blood neutrophils/100 leukocytes 71 % 42-75 Automated blood lymphocytes/100 leukocytes 17 % 12-44 Blood monocytes/100 leukocytes 9 % 0-12 Automated blood eosinophils/100 leukocytes 2 % 0-10 Automated blood basophils/100 leukocytes 1 % 0-10 Blood neutrophils automated count (number/volume) 7.1 10*3 1.8-7.8 Blood lymphocytes automated count (number/volume) 1.7 10*3 1.0-4.0 Blood monocytes automated count (number/volume) 0. 9 10*3 0.0-1.0 Automated eosinophil count 15.0 10*3/uL 0.0-0.3 Automated blood basophil count (count/volume) 0.1 10*3/uL 0.0-0.1 Comprehensive metabolic panel - 01/15/19 16:27 Serum or plasma sodium measurement (moles/volume) 135 mmol/L 135-145 Serum or plasma potassium measurement (moles/volume) 4.2 mmol/L 3.6-5.0 Serum or plasma chloride measurement (moles/volume) 96 mmol/L 98-107 Carbon dioxide 25 mmol/L 21-32 Serum or plasma anion gap determination (moles/volume) 14 mmol/L 5-14 Serum or plasma urea nitrogen measurement (mass/volume ) 5 mg/dL 7-18 Serum or plasma creatinine measurement (mass/volume) 0.78 mg/dL 0.60-1.30 Serum or plasma urea nitrogen/creatinine mass ratio 6 NRG Serum or plasma creatinine measurement w ith calculation of estimated glomerular filtration rate > NRG Serum or plasma glucose measurement (mass/volume) 101 mg/dL 70-105 Serum or plasma calcium measurement (mass/volume) 8.8 mg/dL 8.5-10.1 Serum or plasma total bilirubin measurement (mass/volu me) 0.2 mg/dL 0.1-1.0 Serum or plasma alkaline phosphatase alexandro surement (enzymatic activity/volume) 185 U/L 40-136 Serum or plasma aspartate aminotransfera se measurement (enzymatic activity/volume) 11 U/L 5-34 Serum or plasma alanine aminotransferase measurement (enzymatic activity/volume) 7 U/L 0-55 Serum or plasma protein measurement (mass/volume) 7.2 g/dL 6.4-8.2 Serum or plasma albumin measurement (mass/volume) 3.8 g/dL 3.2-4.5 CALCIUM CORRECTED 9.0 mg/dL 8.5-10.1 Magnesium - 01/15/19 16:27 Magnesium 1.5 mg/dL 1.8-2.4 TROPONIN T - 01/15/19 16:27 TROPONIN T 10 % <=15 Lipase - 01/15/19 16:27 Lipase 33 U/L 8-78 Blood lactic acid measurement (moles/vol ume) - 01/15/19 16:48 Blood lactic acid measurement (moles/volume) 0.70 mmol/L 0.50-2.00 Bacterial blood culture - 01/15/19 16:48 Bacterial blood culture NG NRG Bacterial blood culture - 01/15/19 17:11 Bacterial blood culture NG NRG DILANTIN (PHENYTOIN) - 01/15/19 17:11 DILANTIN PHEN 15.5 % 10.0-20.0 Complete urinalysis with reflex to cultu re - 01/15/19 18:15 Urine color determination YELLOW NRG Urine clarity determination CLEAR NR G Urine pH measurement by test strip 6 5-9 Specific gravity of urine by test strip < 1.016-1.022 Urine protein assay by test strip, semi-quantitative NEGATIVE NEGATIVE Urine glucose detection by automated test strip NE GATIVE NEGATIVE Erythrocytes detection in urine sediment by light micr oscopy NEGATIVE NEGATIVE Urine ketones detection by automated test strip NE GATIVE NEGATIVE Urine nitrite detection by test strip NEGATIVE NEGATIVE Urine total bilirubin detection by test strip NEGA TIVE NEGATIVE Urine urobilinogen measurement by automated test strip (mass/volume) NORMAL NORMAL Urine leukocyte esterase detection by dipstick NEG ATIVE NEGATIVE Automated urine sediment erythrocyte cou nt by microscopy (number/high power field) NONE NRG Automated urine sediment leukocyte count by microscopy (number/high power field) NONE NRG Bacteria detection in urine sediment by light microsco py NEGATIVE NRG Squamous epithelial cells detection in u rine sediment by light microscopy 0-2 NRG Crystals detection in urine sediment by light microsco py NONE NRG Casts detection in urine sediment by light microscopy NONE NRG Mucus detection in urine sediment by light microscopy NEGATIVE NRG Complete urinalysis with reflex to culture NO NRG Blood CBC with ordered manual differenti al panel - 09/01/19 06:20 Blood leukocytes automated count (number/volume) 20.0 10*3/uL 4.3-11.0 Blood erythrocytes automated count (number/volume) 4.33 10*6/uL 4.35-5.85 Venous blood hemoglobin measurement (mass/volume) 12.9 g/dL 13.3-17.7 Blood hematocrit (volume fraction) 37 % 40-54 Automated erythrocyte mean corpuscular volume 86 [ foz_us] 80-99 Automated erythrocyte mean corpuscular h emoglobin (mass per erythrocyte) 30 pg 25-34 Automated erythrocyte mean corpuscular h emoglobin concentration measurement (mass/volume) 35 g/dL 32-36 Automated erythrocyte distribution width ratio 13. 7 % 10.0- 14.5 Automated blood platelet count (count/volume) 315 10*3/uL 130-400 Automated blood platelet mean volume measurement 8.4 [foz_us] 7.4-10.4 Automated blood neutrophils/100 leukocytes 87 % 42-75 Automated blood lymphocytes/100 leukocytes 5 % 12-44 Blood monocytes/100 leukocytes 7 % NRG Automated blood eosinophils/100 leukocytes 0 % 0-10 Automated blood basophils/100 leukocytes 0 % 0-10 Blood neutrophils automated count (number/volume) 17.4 10*3 1.8-7.8 Blood lymphocytes automated count (number/volume) 1.0 10*3 1.0-4.0 Blood monocytes automated count (number/volume) 1. 4 10*3 0.0-1.0 Automated eosinophil count 0.0 10*3/uL 0 .0-0.3 Automated blood basophil count (count/volume) 0.1 10*3/uL 0.0-0.1 Manual blood segmented neutrophils/100 leukocytes 89 % NRG Manual blood lymphocytes/100 leukocytes 3 % NRG Blood lymphocytes variant/100 leukocytes 1 % NRG Blood microcytes detection by light microscopy [facility] NRG Comprehensive metabolic panel - 09/01/19 06:20 Serum or plasma sodium measurement (moles/volume) 131 mmol/L 135-145 Serum or plasma potassium measurement (moles/volume) 3.9 mmol/L 3.6-5.0 Serum or plasma chloride measurement (moles/volume) 90 mmol/L 98-107 Carbon dioxide 24 mmol/L 21-32 Serum or plasma anion gap determination (moles/volume) 17 mmol/L 5-14 Serum or plasma urea nitrogen measurement (mass/volume ) 7 mg/dL 7-18 Serum or plasma creatinine measurement (mass/volume) 0.85 mg/dL 0.60-1.30 Serum or plasma urea nitrogen/creatinine mass ratio 8 NRG Serum or plasma creatinine measurement w ith calculation of estimated glomerular filtration rate > NRG Serum or plasma glucose measurement (mass/volume) 129 mg/dL 70-105 Serum or plasma calcium measurement (mass/volume) 9.5 mg/dL 8.5-10.1 Serum or plasma total bilirubin measurement (mass/volu me) 0.2 mg/dL 0.1-1.0 Serum or plasma alkaline phosphatase alexandro surement (enzymatic activity/volume) 225 U/L 40-136 Serum or plasma aspartate aminotransfera se measurement (enzymatic activity/volume) 15 U/L 5-34 Serum or plasma alanine aminotransferase measurement (enzymatic activity/volume) 8 U/L 0-55 Serum or plasma protein measurement (mass/volume) 7.4 g/dL 6.4-8.2 Serum or plasma albumin measurement (mass/volume) 4.1 g/dL 3.2-4.5 CALCIUM CORRECTED 9.4 mg/dL 8.5-10.1 Magnesium - 09/01/19 06:20 Magnesium 1.7 mg/dL 1.6-2.4 TROPONIN I FS - 09/01/19 06:20 TROPONIN I FS < 0.30 <0.30 Lipase - 09/01/19 06:20 Lipase 17 U/L 8-78 Blood lactic acid measurement (moles/vol ume) - 09/01/19 06:20 Blood lactic acid measurement (moles/volume) 2.91 mmol/L 0.50-2.00 Bacterial blood culture - 09/01/19 07:45 Bacterial blood culture NG NRG Bacterial blood culture - 09/01/19 07:55 Bacterial blood culture NG NRG Arterial blood gas measurement - 0 09:23 Blood pCO2 32 mm[Hg] 35-45 Blood pO2 86 mm[Hg] 79-93 Arterial blood bicarbonate measurement (moles/volume) 24 mmol/L 23-27 Arterial blood base excess by calculation 0.9 mmol /L -2.5-2.5 Arterial blood oxygen saturation measurement 97 % 94-100 * Inhaled oxygen flow rate ROOM AIR NRG Arterial blood pH measurement with patient temperature correction 7.48 7.37-7.43 Arterial blood carbon dioxide, total measurement (mole s/volume) 24.8 mmol/L 21.0-31.0 Body site RT RADIAL NRG Assessment of wrist artery patency prior to arterial p uncture OK NRG Setting of ventilation mode NO NR G Measurement of body temperature 37.1 C NRG Complete urinalysis with reflex to cultu re - 09/01/19 09:30 Urine color determination YELLOW NRG Urine clarity determination CLEAR NR G Urine pH measurement by test strip 8.5 5-9 Specific gravity of urine by test strip 1.015 1.016-1.022 Urine protein assay by test strip, semi-quantitative NEGATIVE NEGATIVE Urine glucose detection by automated test strip NE GATIVE NEGATIVE Erythrocytes detection in urine sediment by light micr oscopy NEGATIVE NEGATIVE Urine ketones detection by automated test strip NE GATIVE NEGATIVE Urine nitrite detection by test strip NEGATIVE NEGATIVE Urine total bilirubin detection by test strip NEGA TIVE NEGATIVE Urine urobilinogen measurement by automated test strip (mass/volume) 0.2 mg/dL < = 1.0 Urine leukocyte esterase detection by dipstick NEG ATIVE NEGATIVE Automated urine sediment erythrocyte cou nt by microscopy (number/high power field) NONE NRG Automated urine sediment leukocyte count by microscopy (number/high power field) RARE NRG Bacteria detection in urine sediment by light microsco py NEGATIVE NRG Squamous epithelial cells detection in u rine sediment by light microscopy NONE NRG Crystals detection in urine sediment by light microsco py NONE NRG Casts detection in urine sediment by light microscopy NONE NRG Mucus detection in urine sediment by light microscopy NONE NRG Complete urinalysis with reflex to culture NO NRG Other elements identification in urine sediment by lig ht microscopy FEW SPERM NRG Urine drug screening test - 09/01/19 09: 30 Urine phencyclidine detection by screening method NEGATIVE NEGATIVE Urine benzodiazepines detection by screening method POSITIVE NEGATIVE Urine cocaine detection NEGATIVE NEGATI VE Urine amphetamines detection by screening method N EGATIVE NEGATIVE Urine methamphetamine detection by screening method NEGATIVE NEGATIVE Urine cannabinoids detection by screening method N EGATIVE NEGATIVE Urine opiates detection by screening method NEGATI VE NEGATIVE Urine barbiturates detection POSITIVE N EGATIVE Screening urine tricyclic antidepressants detection NEGATIVE NEGATIVE Urine methadone detection by screening method NEGA TIVE NEGATIVE Urine oxycodone detection NEGATIVE NEGA TIVE Urine propoxyphene detection NEGATIVE N EGATIVE Serum or plasma lactate measurement (mol es/volume) - 09/01/19 09:30 Serum or plasma lactate measurement (moles/volume) 1.69 mmol/L 0.50-2.00 Methicillin resistant Staphylococcus aur eus (MRSA) screening culture - 09/01/19 10:55 Methicillin resistant Staphylococcus aureus (MRSA) scr eening culture NEG NRG Whole blood basic metabolic panel - 08/08 02/23 05:20 Serum or plasma sodium measurement (moles/volume) 132 mmol/L 135-145 Serum or plasma potassium measurement (moles/volume) 3.9 mmol/L 3.6-5.0 Serum or plasma chloride measurement (moles/volume) 104 mmol/L 98-107 Carbon dioxide 20 mmol/L 21-32 Serum or plasma anion gap determination (moles/volume) 8 mmol/L 5-14 Serum or plasma urea nitrogen measurement (mass/volume ) 6 mg/dL 7-18 Serum or plasma creatinine measurement (mass/volume) 0.73 mg/dL 0.60-1.30 Serum or plasma urea nitrogen/creatinine mass ratio 8 NRG Serum or plasma creatinine measurement w ith calculation of estimated glomerular filtration rate > NRG Serum or plasma glucose measurement (mass/volume) 105 mg/dL 70-105 Serum or plasma calcium measurement (mass/volume) 8.1 mg/dL 8.5-10.1 Serum or plasma phosphate measurement (m ass/volume) - 09/02/19 05:20 Serum or plasma phosphate measurement (mass/volume) 3.3 mg/dL 2.3-4.7 Magnesium - 09/02/19 05:20 Magnesium 1.4 mg/dL 1.6-2.4 Complete blood count (CBC) with automate d white blood cell (WBC) differential - 09/02/19 05:20 Blood leukocytes automated count (number/volume) 14.1 10*3/uL 4.3-11.0 Blood erythrocytes automated count (number/volume) 3.41 10*6/uL 4.35-5.85 Venous blood hemoglobin measurement (mass/volume) 10.0 g/dL 13.3-17.7 Blood hematocrit (volume fraction) 29 % 40-54 Automated erythrocyte mean corpuscular volume 86 [ foz_us] 80-99 Automated erythrocyte mean corpuscular h emoglobin (mass per erythrocyte) 29 pg 25-34 Automated erythrocyte mean corpuscular h emoglobin concentration measurement (mass/volume) 34 g/dL 32-36 Automated erythrocyte distribution width ratio 14. 3 % 10.0- 14.5 Automated blood platelet count (count/volume) 288 10*3/uL 130-400 Automated blood platelet mean volume measurement 8.3 [foz_us] 7.4-10.4 Automated blood neutrophils/100 leukocytes 86 % 42-75 Automated blood lymphocytes/100 leukocytes 8 % 12-44 Blood monocytes/100 leukocytes 6 % 0-12 Automated blood eosinophils/100 leukocytes 0 % 0-10 Automated blood basophils/100 leukocytes 0 % 0-10 Blood neutrophils automated count (number/volume) 12.2 10*3 1.8-7.8 Blood lymphocytes automated count (number/volume) 1.1 10*3 1.0-4.0 Blood monocytes automated count (number/volume) 0. 8 10*3 0.0-1.0 Automated eosinophil count 0.0 10*3/uL 0 .0-0.3 Automated blood basophil count (count/volume) 0.0 10*3/uL 0.0-0.1 Complete blood count (CBC) with automate d white blood cell (WBC) differential - 09/03/19 05:30 Blood leukocytes automated count (number/volume) 10.1 10*3/uL 4.3-11.0 Blood erythrocytes automated count (number/volume) 3.17 10*6/uL 4.35-5.85 Venous blood hemoglobin measurement (mass/volume) 9.3 g/dL 13.3-17.7 Blood hematocrit (volume fraction) 28 % 40-54 Automated erythrocyte mean corpuscular volume 88 [ foz_us] 80-99 Automated erythrocyte mean corpuscular h emoglobin (mass per erythrocyte) 29 pg 25-34 Automated erythrocyte mean corpuscular h emoglobin concentration measurement (mass/volume) 33 g/dL 32-36 Automated erythrocyte distribution width ratio 14. 3 % 10.0- 14.5 Automated blood platelet count (count/volume) 286 10*3/uL 130-400 Automated blood platelet mean volume measurement 8.9 [foz_us] 7.4-10.4 Automated blood neutrophils/100 leukocytes 81 % 42-75 Automated blood lymphocytes/100 leukocytes 10 % 12-44 Blood monocytes/100 leukocytes 9 % 0-12 Automated blood eosinophils/100 leukocytes 0 % 0-10 Automated blood basophils/100 leukocytes 0 % 0-10 Blood neutrophils automated count (number/volume) 8.2 10*3 1.8-7.8 Blood lymphocytes automated count (number/volume) 1.0 10*3 1.0-4.0 Blood monocytes automated count (number/volume) 0. 9 10*3 0.0-1.0 Automated eosinophil count 0.0 10*3/uL 0 .0-0.3 Automated blood basophil count (count/volume) 0.0 10*3/uL 0.0-0.1 Comprehensive metabolic panel - 09/03/19 05:30 Serum or plasma sodium measurement (moles/volume) 137 mmol/L 135-145 Serum or plasma potassium measurement (moles/volume) 3.4 mmol/L 3.6-5.0 Serum or plasma chloride measurement (moles/volume) 110 mmol/L 98-107 Carbon dioxide 19 mmol/L 21-32 Serum or plasma anion gap determination (moles/volume) 8 mmol/L 5-14 Serum or plasma urea nitrogen measurement (mass/volume ) 5 mg/dL 7-18 Serum or plasma creatinine measurement (mass/volume) 0.81 mg/dL 0.60-1.30 Serum or plasma urea nitrogen/creatinine mass ratio 6 NRG Serum or plasma creatinine measurement w ith calculation of estimated glomerular filtration rate > NRG Serum or plasma glucose measurement (mass/volume) 111 mg/dL 70-105 Serum or plasma calcium measurement (mass/volume) 7.9 mg/dL 8.5-10.1 Serum or plasma total bilirubin measurement (mass/volu me) 0.1 mg/dL 0.1-1.0 Serum or plasma alkaline phosphatase alexandro surement (enzymatic activity/volume) 125 U/L 40-136 Serum or plasma aspartate aminotransfera se measurement (enzymatic activity/volume) 13 U/L 5-34 Serum or plasma alanine aminotransferase measurement (enzymatic activity/volume) 9 U/L 0-55 Serum or plasma protein measurement (mass/volume) 5.6 g/dL 6.4-8.2 Serum or plasma albumin measurement (mass/volume) 3.2 g/dL 3.2-4.5 CALCIUM CORRECTED 8.5 mg/dL 8.5-10.1 Serum or plasma phosphate measurement (m ass/volume) - 09/03/19 05:30 Serum or plasma phosphate measurement (mass/volume) 3.0 mg/dL 2.3-4.7 Magnesium - 09/03/19 05:30 Magnesium 1.4 mg/dL 1.6-2.4 Complete blood count (CBC) with automate d white blood cell (WBC) differential - 09/04/19 05:20 Blood leukocytes automated count (number/volume) 9.5 10*3/uL 4.3-11.0 Blood erythrocytes automated count (number/volume) 3.32 10*6/uL 4.35-5.85 Venous blood hemoglobin measurement (mass/volume) 9.9 g/dL 13.3-17.7 Blood hematocrit (volume fraction) 29 % 40-54 Automated erythrocyte mean corpuscular volume 89 [ foz_us] 80-99 Automated erythrocyte mean corpuscular h emoglobin (mass per erythrocyte) 30 pg 25-34 Automated erythrocyte mean corpuscular h emoglobin concentration measurement (mass/volume) 34 g/dL 32-36 Automated erythrocyte distribution width ratio 14. 9 % 10.0- 14.5 Automated blood platelet count (count/volume) 304 10*3/uL 130-400 Automated blood platelet mean volume measurement 8.2 [foz_us] 7.4-10.4 Automated blood neutrophils/100 leukocytes 69 % 42-75 Automated blood lymphocytes/100 leukocytes 18 % 12-44 Blood monocytes/100 leukocytes 12 % 0-12 Automated blood eosinophils/100 leukocytes 2 % 0-10 Automated blood basophils/100 leukocytes 0 % 0-10 Blood neutrophils automated count (number/volume) 6.5 10*3 1.8-7.8 Blood lymphocytes automated count (number/volume) 1.7 10*3 1.0-4.0 Blood monocytes automated count (number/volume) 1. 1 10*3 0.0-1.0 Automated eosinophil count 0.2 10*3/uL 0 .0-0.3 Automated blood basophil count (count/volume) 0.0 10*3/uL 0.0-0.1 Whole blood basic metabolic panel - 08/08 04/26 05:20 Serum or plasma sodium measurement (moles/volume) 141 mmol/L 135-145 Serum or plasma potassium measurement (moles/volume) 3.7 mmol/L 3.6-5.0 Serum or plasma chloride measurement (moles/volume) 111 mmol/L 98-107 Carbon dioxide 24 mmol/L 21-32 Serum or plasma anion gap determination (moles/volume) 6 mmol/L 5-14 Serum or plasma urea nitrogen measurement (mass/volume ) 5 mg/dL 7-18 Serum or plasma creatinine measurement (mass/volume) 0.73 mg/dL 0.60-1.30 Serum or plasma urea nitrogen/creatinine mass ratio 7 NRG Serum or plasma creatinine measurement w ith calculation of estimated glomerular filtration rate > NRG Serum or plasma glucose measurement (mass/volume) 84 mg/dL 70-105 Serum or plasma calcium measurement (mass/volume) 7.5 mg/dL 8.5-10.1 Serum or plasma phosphate measurement (m ass/volume) - 09/04/19 05:20 Serum or plasma phosphate measurement (mass/volume) 2.5 mg/dL 2.3-4.7 Magnesium - 09/04/19 05:20 Magnesium 1.7 mg/dL 1.6-2.4 Complete blood count (CBC) with automate d white blood cell (WBC) differential - 03/06/20 19:30 Blood leukocytes automated count (number/volume) 21.4 10*3/uL 4.3-11.0 Blood erythrocytes automated count (number/volume) 4.28 10*6/uL 4.35-5.85 Venous blood hemoglobin measurement (mass/volume) 13.1 g/dL 13.3-17.7 Blood hematocrit (volume fraction) 38 % 40-54 Automated erythrocyte mean corpuscular volume 88 [ foz_us] 80-99 Automated erythrocyte mean corpuscular h emoglobin (mass per erythrocyte) 31 pg 25-34 Automated erythrocyte mean corpuscular h emoglobin concentration measurement (mass/volume) 35 g/dL 32-36 Automated erythrocyte distribution width ratio 13. 2 % 10.0- 14.5 Automated blood platelet count (count/volume) 362 10*3/uL 130-400 Automated blood platelet mean volume measurement 8.8 [foz_us] 7.4-10.4 Automated blood neutrophils/100 leukocytes 84 % 42-75 Automated blood lymphocytes/100 leukocytes 7 % 12-44 Blood monocytes/100 leukocytes 8 % 0-12 Automated blood eosinophils/100 leukocytes 1 % 0-10 Automated blood basophils/100 leukocytes 0 % 0-10 Blood neutrophils automated count (number/volume) 17.9 10*3 1.8-7.8 Blood lymphocytes automated count (number/volume) 1.4 10*3 1.0-4.0 Blood monocytes automated count (number/volume) 1. 8 10*3 0.0-1.0 Automated eosinophil count 0.1 10*3/uL 0 .0-0.3 Automated blood basophil count (count/volume) 0.1 10*3/uL 0.0-0.1 PT panel in platelet poor plasma by coag ulation assay - 03/06/20 19:30 Prothrombin time (PT) in platelet poor plasma by coagu lation assay 13.2 s 12.2-14.7 INR in platelet poor plasma or blood by coagulation as say 1.0 0.8-1.4 Activated partial thromboplastin time (a PTT) in platelet poor plasma bycoagulation assay - 03/06/20 19:30 Activated partial thromboplastin time (a PTT) in platelet poor plasma bycoagulation assay 28 s 24-35 Manual absolute plasma cell count - 02/06 08/26 19:30 Blood monocytes/100 leukocytes 7 % NRG Manual blood segmented neutrophils/100 leukocytes 82 % NRG Blood band neutrophils/100 leukocytes 2 % NRG Manual blood lymphocytes/100 leukocytes 7 % NRG Manual eosinophils/100 leukocytes in nose 2 % NRG Blood erythrocyte morphology finding identification NORMAL NRG TROPONIN I FS - 03/06/20 19:30 TROPONIN I FS < 0.30 <0.30 Comprehensive metabolic panel - 03/06/20 19:30 Serum or plasma sodium measurement (moles/volume) 133 mmol/L 135-145 Serum or plasma potassium measurement (moles/volume) 3.9 mmol/L 3.6-5.0 Serum or plasma chloride measurement (moles/volume) 98 mmol/L 98-107 Carbon dioxide 23 mmol/L 21-32 Serum or plasma anion gap determination (moles/volume) 12 mmol/L 5-14 Serum or plasma urea nitrogen measurement (mass/volume ) 7 mg/dL 7-18 Serum or plasma creatinine measurement (mass/volume) 0.96 mg/dL 0.60-1.30 Serum or plasma urea nitrogen/creatinine mass ratio 7 NRG Serum or plasma creatinine measurement w ith calculation of estimated glomerular filtration rate > NRG Serum or plasma glucose measurement (mass/volume) 132 mg/dL 70-105 Serum or plasma calcium measurement (mass/volume) 8.8 mg/dL 8.5-10.1 Serum or plasma total bilirubin measurement (mass/volu me) 0.2 mg/dL 0.1-1.0 Serum or plasma alkaline phosphatase alexandro surement (enzymatic activity/volume) 223 U/L 40-136 Serum or plasma aspartate aminotransfera se measurement (enzymatic activity/volume) 19 U/L 5-34 Serum or plasma alanine aminotransferase measurement (enzymatic activity/volume) 14 U/L 0-55 Serum or plasma protein measurement (mass/volume) 6.7 g/dL 6.4-8.2 Serum or plasma albumin measurement (mass/volume) 3.8 g/dL 3.2-4.5 CALCIUM CORRECTED 9.0 mg/dL 8.5-10.1 Magnesium - 03/06/20 19:30 Magnesium 1.3 mg/dL 1.6-2.4 Lipase - 03/06/20 19:30 Lipase 18 U/L 8-78 PROBNP FS - 03/06/20 19:30 PROBNP FS 476.0 pg/mL <75.0 Complete urinalysis with reflex to cultu re - 03/06/20 19:40 Urine color determination DARK YELLOW N RG Urine clarity determination CLEAR NR G Urine pH measurement by test strip 6.0 5-9 Specific gravity of urine by test strip 1.020 1.016-1.022 Urine protein assay by test strip, semi-quantitative NEGATIVE NEGATIVE Urine glucose detection by automated test strip NE GATIVE NEGATIVE Erythrocytes detection in urine sediment by light micr oscopy NEGATIVE NEGATIVE Urine ketones detection by automated test strip NE GATIVE NEGATIVE Urine nitrite detection by test strip NEGATIVE NEGATIVE Urine total bilirubin detection by test strip NEGA TIVE NEGATIVE Urine urobilinogen measurement by automated test strip (mass/volume) 0.2 mg/dL < = 1.0 Urine leukocyte esterase detection by dipstick NEG ATIVE NEGATIVE Automated urine sediment erythrocyte cou nt by microscopy (number/high power field) [HPF] NRG Automated urine sediment leukocyte count by microscopy (number/high power field) [HPF] NRG Bacteria detection in urine sediment by light microsco py NEGATIVE NRG Squamous epithelial cells detection in u rine sediment by light microscopy 0-2 NRG Crystals detection in urine sediment by light microsco py NONE NRG Casts detection in urine sediment by light microscopy PRESENT NRG Mucus detection in urine sediment by light microscopy MODERATE NRG Complete urinalysis with reflex to culture NO NRG Hyaline casts detection in urine sediment by light bev roscopy 10-25 NRG Encounters ACCT No. Visit Date/Time Discharge Status Pt. Type Provider Facility Loc./Unit Complaint [id number] 03/03/2020 13:00:00 23:59:59 CLS Outpatient GARO QUEZADA MD [facility] ONC [id number] 08/27/2019 13:07:00 00:01:00 DIS Outpatient GARO QUEZADA MD [facility] ONC [id number] 09/01/2019 09:24:00 12:43:00 DIS Inpatient RHIANNON DHALIWAL DO [facility] 4TH NAUSEA/VOMITING [id number] 04/30/2019 13:37:00 00:01:00 DIS Outpatient GARO QUEZADA MD [facility] ONC [id number] 06/04/2019 12:55:00 23:59:59 CLS Outpatient LINCOLN NAVAS [facility] RAD FS [id number] [id number] 05/06/2019 12:36:00 23:59:59 CLS Outpatient LINCOLN NAVAS Romina TENORIO [facility] RAD FS S72.041A [id number] 01/29/2019 11:01:00 00:01:00 DIS Outpatient GARO QUEZADA MD [facility] ONC [id number] 04/22/2019 14:23:00 23:59:59 CLS Outpatient LINCOLN NAVAS [employer] [facility] RAD FS [id number] [id number] 01/15/2019 16:16:00 19:55:00 DIS Emergency SERAFIN SINGER MD [facility] ER FS BP ISSUES, NAUSEA, CHES T PAIN [id number] 01/01/2019 09:27:00 00:01:00 DIS Outpatient GARO QUEZADA MD [facility] ONC [id number] 11/01/2018 11:52:00 23:59:59 CLS Outpatient GARO QUEZADA MD [facility] RAD UNSTABLE BALANCE [id number] 09/11/2018 10:45:00 00:01:00 DIS Outpatient GARO QUEZADA MD [facility] ONC [id number] 06/14/2018 11:03:00 23:59:59 CLS Outpatient ERMIAS ROBLES [facility] CARD LUNG CANCER [id number] 05/21/2018 09:27:00 018 10:00:00 DIS Outpatient VALENTIN MEANS [facility] ONC [id number] 04/23/2018 10:47:00 018 23:59:59 CLS Outpatient GARO QUEZADA MD [facility] ONC [id number] 03/06/2018 10:41:00 018 10:36:00 DIS Outpatient VALENTIN MEANS [facility] ONC [id number] 01/08/2018 13:30:00 018 14:59:00 DIS Outpatient GARO QUEZADA MD [facility] ONC [id number] 11/28/2017 10:48:00 018 00:01:00 DIS Outpatient GARO QUEZADA MD [facility] ONC [id number] 08/09/2017 10:21:00 018 15:29:00 DIS Outpatient JIMY ROBERTSON MD, [facility] ONC [id number] 07/25/2017 10:35:00 018 14:38:00 DIS Outpatient GARO QUEZADA MD [facility] ONC [id number] 07/04/2017 10:34:00 017 23:59:59 CLS Outpatient GARO QUEZADA MD [facility] RAD C34.11 [id number] 05/30/2017 09:31:00 017 15:32:00 DIS Outpatient VALENTIN MEANS [facility] ONC [id number] 05/30/2017 08:09:00 017 23:59:59 CLS Preadmit VALENTIN MEANS [facility] ONC [id number] 05/16/2017 10:40:00 017 08:09:00 DIS Outpatient GARO QUEZADA MD [facility] ONC [id number] 05/02/2017 09:22:00 017 00:01:00 DIS Outpatient GARO QUEZADA MD [facility] ONC [id number] 03/15/2017 09:09:00 017 23:59:59 CLS Outpatient GARO QUEZADA MD [facility] RAD BRAIN MASS G93.9 [id number] 02/21/2017 12:11:00 017 00:01:00 DIS Outpatient JIM OTT MD, V [facility] ONC [id number] 12/22/2016 13:23:00 017 23:59:59 CLS Outpatient EDA ADKINS, VIVIANA Martinez [facility] RAD PORT CATHETER MALPOSITI ON IN [id number] 12/22/2016 11:01:00 017 23:59:59 CLS Outpatient TRU ADKINS, JIM escoto [facility] RAD C34.11 LUNG CANCER [id number] 11/15/2016 12:58:00 017 00:01:00 DIS Outpatient TRU ADKINS, JIM Holloway [facility] ONC [id number] 11/07/2016 13:25:00 017 23:59:59 CLS Outpatient TRU ADKINS, JIM escoto [facility] RAD METASTASIS TO BRAIN,ADRIANA G CA [id number] 10/27/2016 14:20:00 017 23:59:59 CLS Outpatient TRU ADKINS, JIM escoto [facility] RAD LUNG CA,METASTASIS TO B RAIN [id number] 08/29/2016 12:53:00 017 23:59:59 CLS Outpatient TRU ADKINS, JIM Holloway [facility] RAD LUNG CA,METASTASIS TO B RAIN [id number] 08/16/2016 12:37:00 017 00:01:00 DIS Outpatient TRU ADKINS, JIM Holloway [facility] ONC [id number] 04/14/2016 09:30:00 016 10:57:00 DIS Outpatient JIM OTT MD, V [facility] ONC [id number] 03/07/2016 12:53:00 016 00:01:00 DIS Outpatient JIM OTT MD, V [facility] ONC [id number] 12/28/2015 10:47:00 016 23:59:59 CLS Preadmit ERMIAS ROBLES [facility] ONC [id number] 03/06/2020 19:07:[address] Emergency ENMANUEL ADKINS, SERAFIN Rojas [facility] ER FS FALL [id number] 03/20/2018 13:44:00 Document Registration
--- NOTE | 2020-03-06 21:20 | Diagnostic Imaging Report ---
INDICATION: Fall with back pain and right hip pain. History of lung cancer and ostomy. TECHNIQUE: Multiple contiguous axial images were obtained through the chest, abdomen, and pelvis after the administration of intravenous contrast. Auto Exposure Controls were utilized during the CT exam to meet ALARA standards for radiation dose reduction. COMPARISON: 09/01/2019. CT CHEST FINDINGS: The right upper lobe mass lesion which had measured about 3.0 x 2.7 cm is stable in size, measuring 3.0 x 2.6 cm. Some faint central calcification is noted. There are COPD changes. There is a calcified granuloma in the left upper lobe. There is no new pulmonary parenchymal lesion. There is no pleural fluid collection or pericardial effusion. Port-A-Cath is seen over the left chest. The mildly prominent subcarinal node which had measured 1.7 cm in short axis diameter is stable, measuring 1.6 cm. There is no new abnormality in the chest. CT ABDOMEN/PELVIS FINDINGS: The liver shows no discrete focal lesions. Gallbladder appears normal. Spleen shows several calcified granulomata but is otherwise normal in appearance. The adrenals and pancreas appear normal. Kidneys, bilaterally, are unremarkable except for a small cyst in the right kidney. There is no retroperitoneal mass or adenopathy. Patient has had previous aortobifemoral bypass. Both limbs of the device are patent. There is no pelvic mass or free fluid. Visualized bowel loops show no sign of obstruction. There is an ostomy in the left lower quadrant. There is no parastomal hernia or obstruction. There is postoperative hardware in the right proximal femur. IMPRESSION: 1. CT chest shows emphysematous changes. There is no change in size of spiculated mass in right upper lobe compatible with patient's known lung cancer. Mild subcarinal adenopathy is also stable. There is no new finding in the chest. 2. CT abdomen and pelvis demonstrate no evidence of mass lesion or abscess. There is no sign of bowel obstruction. There is an ostomy in the left lower quadrant. There is a benign-appearing cyst in the right kidney. There are postoperative changes status post aortobifemoral bypass. There is no acute appearing finding. Dictated by: Dictated on workstation # [id number]
--- NOTE | 2020-03-06 21:21 | Diagnostic Imaging Report ---
INDICATION: Fall with right hip pain. EXAMINATION: AP and lateral views of the right femur were obtained. FINDINGS: Hardware is visualized in the right femoral neck and proximal shaft. There is a lucency in the right proximal femur in the intertrochanteric region, which is compatible with fracture. The lucency, however, has fairly sclerotic borders suggesting this may be subacute or chronic. Correlate with any recent prior films, if available. This does appear to be at the same site as the previous fracture seen on 05/06/2019. The mid and distal femoral shaft are intact. IMPRESSION: There is hardware in the right femoral neck and proximal shaft. There is a lucency in the intertrochanteric region with sclerotic borders, which is probably a subacute or chronic fracture with incomplete union, rather than an acute fracture. The mid and distal femoral shaft are intact. Dictated by: Dictated on workstation # [id number]
--- NOTE | 2020-03-06 21:32 | Diagnostic Imaging Report ---
INDICATION: Fall with confusion and weakness. TECHNIQUE: Multiple contiguous axial images were obtained through the brain and cervical spine without the use of intravenous contrast. Sagittal and coronal reformations through the cervical spine were then performed. Auto Exposure Controls were utilized during the CT exam to meet ALARA standards for radiation dose reduction. CT BRAIN FINDINGS: There are mild diffuse atrophic changes. There are patchy low-density changes in the deep white matter compatible with chronic ischemic change. There is some motion artifact. There is no definite acute appearing finding. Calvarial windows appear unremarkable. CT CERVICAL SPINE FINDINGS: There is no evidence of cervical spine fracture. There is no subluxation or malalignment. There are mild degenerative changes of the facet joints throughout. IMPRESSION: 1. CT brain shows mild atrophic changes with patchy low-density changes in the deep white matter which may represent chronic ischemic change. There is no acute hemorrhage or acute appearing finding or calvarial fracture. 2. CT cervical spine shows mild degenerative findings with no acute abnormality. Dictated by: Dictated on workstation # [id number]
[2020-03-06] MEDS ORDERED: NS IV 1000 ML 1,000 ML IV SCH (21:45)
[2020-03-06] MEDS ORDERED: MAGNESIUM 1 GM/100 ML IVPB 100 ML IV ONE (21:45)
[2020-03-06 22:54] VITALS: BP 111/90
== END 2020-03-06 22:54 | disposition home or self-care (01) ==
LOC: EDUNIT# 19:04 → ER FS 19:07
DX: S39.012A Strain of muscle, fascia and tendon of lower back, initial encounter (principal); S00.81XA Abrasion of other part of head, initial encounter; E83.42 Hypomagnesemia; D72.829 Elevated white blood cell count, unspecified; I25.2 Old myocardial infarction; G40.909 Epilepsy, unspecified, not intractable, without status epilepticus; F41.9 Anxiety disorder, unspecified; K21.9 Gastro-esophageal reflux disease without esophagitis; M54.6 Pain in thoracic spine; F17.210 Nicotine dependence, cigarettes, uncomplicated; Z88.5 Allergy status to narcotic agent; Z88.8 Allergy status to other drugs, medicaments and biological substances; Z79.52 Long term (current) use of systemic steroids; Z79.82 Long term (current) use of aspirin; Z85.118 Personal history of other malignant neoplasm of bronchus and lung; Z85.841 Personal history of malignant neoplasm of brain; Z85.01 Personal history of malignant neoplasm of esophagus; W01.0XXA Fall on same level from slipping, tripping and stumbling without subsequent striking against object, initial encounter; Y92.039 Unspecified place in apartment as the place of occurrence of the external cause
CPT/HCPCS: 36415; 70450; 71260; 72125; 73552; 74177; 80053; 81000; 83605; 83690; 83735; 83880; 84484; 85007; 85027; 85610; 85730; 87040; 93041

== ENCOUNTER 2020-03-19 18:06 | Day surgery (SDC) | payer MEDICAID ==
[~2020-03-19] VITALS: Ht 182.9 cm; Wt 67.7 kg
[2020-03-19] MEDS ORDERED: ONDANSETRON 4 MG/2 ML (SDV) Z0FRAN IVP ONE (18:30)
[2020-03-19] MEDS ORDERED: LACTATED RINGERS 1,000 ML IV ONE (18:30)
[2020-03-19 18:33] LABS: BASOPHILS % (AUTO) 0 % (0-10); EOSINOPHILS # (AUTO) 0.1 10^3/uL (0.0-0.3); EOSINOPHILS % (AUTO) 1 % (0-10); HEMATOCRIT 36 % (40-54); HEMOGLOBIN 12.6 G/DL (13.3-17.7); LYMPHOCYTES # (AUTO) 1.5 X 10^3 (1.0-4.0); LYMPHOCYTES % (AUTO) 9 % (12-44); MEAN CORPUSCULAR HEMOGLOBIN 31 PG (25-34); MEAN CORPUSCULAR HGB CONC 35 G/DL (32-36); MEAN CORPUSCULAR VOLUME 89 FL (80-99); MEAN PLATELET VOLUME 8.4 FL (7.4-10.4); MONOCYTES # (AUTO) 1.2 X 10^3 (0.0-1.0); MONOCYTES % (AUTO) 7 % (0-12); NEUTROPHILS # (AUTO) 14.2 X 10^3 (1.8-7.8); NEUTROPHILS % (AUTO) 83 % (42-75); PLATELET COUNT 423 10^3/uL (130-400); RED CELL DISTRIBUTION WIDTH 14.3 % (10.0-14.5)
--- NOTE | 2020-03-19 18:38 | ED Abdominal Pain ---
General Chief Complaint: Abdominal/GI Problems Stated Complaint: CHOLOSTOMY BAG Nursing Triage Note: Pt to ED with c/o clogged colostomy. Pt reports being seen at ED earlier today with no resolve. Pt c/o minimal output for two weeks. Pt reports vomiting this AM. Pt reports fall last week and not feeling like self since then. 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 Worrell. Sepsis Screen: No Definite Risk Source of Information: Patient, Old Records Exam Limitations: No Limitations History of Present Illness Date Seen by Provider: Mar 19, 2020 Time Seen by Provider: 18:15 Initial Comments This 51-year-old man presents to the emergency room with primary complaint of abdominal pain and distention with decreased colostomy bag output. He has metastatic lung cancer and is under the care of Dr. Worrell. Dr. Mullen is his primary care provider. Patient has been seen multiple times in the emergency room an office setting recently. He was seen in the end of February for a fall and had imaging performed of his head, C-spine, and right femur. A lumbar compression fracture was identified. No other injuries were seen. He had another visit to the [facility] emergency room yesterday. There was concern for possible bowel obstruction versus constipation. No obstruction was identified b ut there was a significant amount of stool just beneath the ostomy opening. Patient states he drank nearly 32 ounces of fluid mixed with 17 g of MiraLAX. This did not produce much ostomy output but did cause nausea and vomiting this morning. He complains of abdominal pain and distention. Bowel sounds are somewhat tympanic. Allergies and Home Medications Allergies Coded Allergies: nitroglycerin (Verified Allergy, Unknown, 04/14/16) morphine (Verified Adverse Reaction, Mild, nausea, 01/15/19) Home Medications Alprazolam 0.5 Mg Tablet, 0.5 MG PO TID PRN for ANXIETY, (Reported) Aspirin 81 Mg Tablet., 81 MG PO DAILY Prescribed by: RHIANNON DHALIWAL on 09/04/19 100 Atorvastatin Calcium 10 Mg Tablet, 10 MG PO HS Prescribed by: RHIANNON DHALIWAL on 09/04/19 100 Azithromycin 250 Mg Tablet, 500 MG PO DAILY Prescribed by: RHIANNON DHALIWAL on 09/04/19 1008 Cefdinir 300 Mg Capsule, 300 MG PO BID Prescribed by: RHIANNON DHALIWAL on 09/04/19 1008 Fluticasone/Salmeterol 12 Gm Hfa.aer.ad, 2 PUFF IH BID@ Prescribed by: RHIANNON DHALIWAL on 09/04/19 100 Gabapentin 300 Mg Capsule, 300 MG PO TID, (Reported) Metoprolol Tartrate 25 Mg Tablet, 25 MG PO DAILY, (Reported) Mirtazapine 30 Mg Tablet, 30 MG PO DAILY, (Reported) Olanzapine 10 Mg Tablet, 10 MG PO BID, (Reported) Oxycodone HCl/Acetaminophen 1 Each Tablet, 1 EACH PO Q6H PRN for PAIN-SEVERE TO BREAKTHROUGH Prescribed by: SERAFIN SINGER on 01/15/191946 Pantoprazole Sodium 40 Mg Tablet.dr, 40 MG PO DAILY, (Reported) Phenytoin Sodium Extended 100 Mg Capsule, 100 MG PO QID, (Reported) Prednisone 10 Mg Tab.ds.pk, 10 MG PO DAILY Take 6 tabs(60mg)daily,decrease by 1 tab(10MG)daily. Prescribed by: RHIANNON DHALIWAL on 09/04/19 100 Sucralfate 1 Gm Tablet, 1 GM PO ACHS Prescribed by: RHIANNON DHALIWAL on 09/04/19 1008 Patient Home Medication List Home Medication List Reviewed: Yes Review of Systems Review of Systems Constitutional: no symptoms reported EENTM: No Symptoms Reported Respiratory: See HPI Cardiovascular: No Symptoms Reported Gastrointestinal: See HPI Genitourinary: No Symptoms Reported Musculoskeletal: no symptoms reported Skin: no symptoms reported Psychiatric/Neurological: No Symptoms Reported Endocrine: No Symptoms Reported Hematologic/Lymphatic: See HPI Past Cvghitc-Sksbrr-Velkku Hx Past Med/Social Hx: Reviewed Nursing Past Med/Soc Hx Patient Social History Alcohol Use: Denies Use Recreational Drug Use: No Type Used: Cigarettes 2nd Hand Smoke Exposure: No Recent Foreign Travel: No Contact w/Someone Who Travel: No Recent Infectious Disease Expo: No Recent Hopitalizations: No Immunizations Up To Date Date of Pneumonia Vaccine: May 11, 2016 Date of Influenza Vaccine: May 02, 2019 Seasonal Allergies Seasonal Allergies: No Past Medical History Surgeries: Yes (colostomy, port (left), toe amputation) Bowel Surgery, Cardiac Respiratory: No Cardiac: Yes Coronary Artery Disease, Heart Attack Neurological: Yes Seizure Disorder Genitourinary: No Gastrointestinal: Yes (colostomy) Gastroesophageal Reflux, Gastrointestinal Bleed, Chronic Constipation Musculoskeletal: Yes Arthritis Endocrine: No HEENT: No Cancer: Yes (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) Lung What Type of Treatment Did You: Chemotherapy, Radiation, Other Psychosocial: No Anxiety Integumentary: Yes (nicotine discoloration of the hands) Blood Disorders: No Physical Exam Vital Signs Vital Signs - First Documented 03/19/20 18:14 Temp 36.5 Pulse 86 Resp 18 B/P (MAP) 130/76 (94) Pulse Ox 98 O2 Delivery Room Air Capillary Refill : Less Than 3 Seconds Height/Weight/BMI Height: 6'0" Weight: 147lbs. oz. 66.326741pz; 19.00 BMI Method:Stated General Appearance: WD/WN, no apparent distress, cachetic HEENT: PERRL/EOMI, other (various facial skin lesions) Neck: normal inspection Respiratory: no respiratory distress, no accessory muscle use, wheezing Cardiovascular: regular rate, rhythm, no edema, no murmur Gastrointestinal: soft, abnormal bowel sounds (present but somewhat tympanic), distended, tenderness (greater on the right) Extremities: normal inspection, no pedal edema, other (noticing significant pain with passive range of motion of the hips) Neurologic/Psychiatric: oim architect II-XII nml as tested, no motor/sensory deficits, alert, normal mood/affect, oriented x 3 Skin: normal color, warm/dry Progress/Results/Core Measures Results/Orders Lab Results Laboratory Tests Test 03/19/20 18:25 03/19/20 19:17 Range/Units White Blood Count 17.0 H 4.3-11.0 10^3/uL Red Blood Count 4.09 L 4.35-5.85 10^6/uL Hemoglobin 12.6 L 13.3-17.7 G/DL Hematocrit 36 L 40-54 % Mean Corpuscular Volume 89 80-99 FL Mean Corpuscular Hemoglobin 31 25-34 PG Mean Corpuscular Hemoglobin Concent 35 32-36 G/DL Red Cell Distribution Width 14.3 10.0-14.5 % Platelet Count 423 H 130-400 10^3/uL Mean Platelet Volume 8.4 7.4-10.4 FL Neutrophils (%) (Auto) 83 H 42-75 % Lymphocytes (%) (Auto) 9 L 12-44 % Monocytes (%) (Auto) 7 0-12 % Eosinophils (%) (Auto) 1 0-10 % Basophils (%) (Auto) 0 0-10 % Neutrophils # (Auto) 14.2 H 1.8-7.8 X 10^3 Lymphocytes # (Auto) 1.5 1.0-4.0 X 10^3 Monocytes # (Auto) 1.2 H 0.0-1.0 X 10^3 Eosinophils # (Auto) 0.1 0.0-0.3 10^3/uL Basophils # (Auto) 0.0 0.0-0.1 10^3/uL Neutrophils % (Manual) 85 % Lymphocytes % (Manual) 9 % Monocytes % (Manual) 6 % Blood Morphology Comment NORMAL Sodium Level 133 L 135-145 MMOL/L Potassium Level 3.4 L 3.6-5.0 MMOL/L Chloride Level 99 98-107 MMOL/L Carbon Dioxide Level 23 21-32 MMOL/L Anion Gap 11 5-14 MMOL/L Blood Urea Nitrogen 17 7-18 MG/DL Creatinine 1.47 H 0.60-1.30 MG/DL Estimat Glomerular Filtration Rate 49 BUN/Creatinine Ratio 12 Glucose Level 104 70-105 MG/DL Calcium Level 8.6 8.5-10.1 MG/DL Corrected Calcium 8.8 8.5-10.1 MG/DL Magnesium Level 1.9 1.6-2.4 MG/DL Total Bilirubin 0.2 0.1-1.0 MG/DL Aspartate Amino Transf (AST/SGOT) 12 5-34 U/L Alanine Aminotransferase (ALT/SGPT) 11 0-55 U/L Alkaline Phosphatase 225 H 40-136 U/L C-Reactive Protein High Sensitivity 5.57 H 0.00-0.50 MG/DL Total Protein 7.1 6.4-8.2 GM/DL Albumin 3.7 3.2-4.5 GM/DL Lipase 14 8-78 U/L Procalcitonin 0.07 <0.10 NG/ML Urine Color YELLOW Urine Clarity CLEAR Urine pH 5.5 5-9 Urine Specific Sparkman 1.015 L 1.016-1.022 Urine Protein TRACE H NEGATIVE Urine Glucose (UA) NEGATIVE NEGATIVE Urine Ketones NEGATIVE NEGATIVE Urine Nitrite NEGATIVE NEGATIVE Urine Bilirubin NEGATIVE NEGATIVE Urine Urobilinogen 0.2 < = 1.0 MG/DL Urine Leukocyte Esterase NEGATIVE NEGATIVE Urine RBC (Auto) NEGATIVE NEGATIVE Urine RBC 0-2 /HPF Urine WBC 2-5 /HPF Urine Crystals PRESENT H /LPF Urine Amorphous Sediment FEW FABIAN URATES H /LPF Urine Bacteria TRACE /HPF Urine Casts PRESENT /LPF Urine Hyaline Casts >50 H /LPF Urine Mucus NEGATIVE /LPF Urine Other FEW SPERM H /HPF Urine Culture Indicated NO My Orders Orders - AUDREY NAVA MD Cbc With Automated Diff (03/19/20 18:24) Comprehensive Metabolic Panel (03/19/20 18:24) Hs C Reactive Protein (03/19/20 18:24) Lipase (03/19/20 18:24) Magnesium (03/19/20 18:24) Ed Iv/Invasive Line Start (03/19/20 18:24) Abdomen, Flat & Upright/Decub (03/19/20 18:29) Ondansetron Injection (Zofran Injectio (03/19/20 18:30) Lactated Ringers (Lr 1000 Ml Iv Solution (03/19/20 18:30) Manual Differential (03/19/20 18:25) Ua Culture If Indicated (03/19/20 19:11) Procalcitonin (Pct) (03/19/20 19:13) Ct Abdomen/Pelvis Wo (03/19/20 19:20) Promethazine Injection (Phenergan Injec (03/19/20 20:00) Diatrizoate Meglum/Sodium 37% (Gastrogra (03/19/20 20:15) Piperacillin Sodium/Tazobactam (Zosyn Vi (03/19/20 21:15) Soap Suds Enema (03/19/20 21:05) Medications Given in ED Current Medications Medications Dose Ordered Sig/Cortney Route Start Time Stop Time Status Last Admin Dose Admin Diatrizoate Meglum/ Diatrizoate Sod 120 ml ONCE ONCE PO 03/19/20 20:15 03/19/20 20:16 DC 03/19/20 20:39 50 ML Lactated Ringer's 1,000 ml @ 0 mls/hr Q0M ONCE IV 03/19/20 18:30 03/19/20 18:32 DC 03/19/20 18:54 1,000 MLS/HR Ondansetron HCl 8 mg ONCE ONCE IVP 03/19/20 18:30 03/19/20 18:32 DC 03/19/20 18:54 8 MG Promethazine HCl 12.5 mg ONCE ONCE IVP 03/19/20 20:00 03/19/20 20:01 DC 03/19/20 20:02 12.5 MG Vital Signs/I&O 03/19/20 18:14 Temp 36.5 Pulse 86 Resp 18 B/P (MAP) 130/76 (94) Pulse Ox 98 O2 Delivery Room Air Blood Pressure Mean: 94 Progress Progress Note #1: Time: 19:30 Progress Note Labs were reviewed. Patient has leukocytosis but this seems to be an intermittent chronic problem. CRP was mildly elevated. We will check a pro- calcitonin as well. X-ray again showed significant colonic air. The nature of this is uncertain but may represent constipation versus partial obstruction. I discussed the imaging and scenario with Dr. Mathews. He suggests obtaining a CT with oral contrast. We will give him as much oral contrast as he can tolerate and perform the CT an hour later. In the meantime patient is receiving his IV fluids and a UA was obtained. Progress Note #2: Time: 21:52 Progress Note After discussion with Dr. Mathews, manual disimpaction was attempted digitally. I could not reach the stool during the attempt. A soapsuds enema was then instilled. More volume was expelled from the ostomy than inserted. Abdomen was softer. He is receiving Zosyn as initial antibiotic therapy. This will be continued on the floor. We will watch him as an observation patient overnight. Case was reviewed with Dr. Dhaliwal. Patient made a point of stating he must take brand-name Dilantin and cannot take the generic. We are making every effort to try to obtain this from his family. Diagnostic Imaging Diagonstic Imaging: Xray Plain Films/CT/US/NM/MRI: abdomen, pelvis Comments X-ray viewed by me and report reviewed. See report below: NAME: NATALY RITCHIE [facility] REC#: [id number] PT STATUS: REG ER : 1960 PHYSICIAN: AUDREY NAVA MD ADMIT DATE: 03/19/20/ER Signed Date of Exam:03/19/20 ABDOMEN, FLAT & UPRIGHT/DECUB INDICATION: Abdominal pain and distention. COMPARISON: 03/18/2020. EXAMINATION: KUB and upright views of the abdomen were obtained. FINDINGS: Mild to moderate colonic distention with air-fluid levels. No significant constipation is seen. There is no large pocket of free air. Colostomy is seen in the left midabdomen. IMPRESSION: 1. Mild to moderate colonic distention with air-fluid levels, possible ileus or partial obstruction. This was seen on the prior CT examination and may be related to constipation. 2. No free air identified. Dictated by: Dictated on workstation # [id number] Dict: 03/19/201850 Trans: 03/19/201857 [facility] [id number] Interpreted by: RODY PINON Electronically signed by: RODY PINON 03/19/201857 Diagonstic Imaging: CT Plain Films/CT/US/NM/MRI: abdomen, pelvis Comments CT abdomen and pelvis viewed by me and report reviewed. See report below: NAME: NATALY RITCHIE [facility] REC#: [id number] PT STATUS: REG ER : 1960 PHYSICIAN: AUDREY NAVA MD ADMIT DATE: 03/19/20/ER Signed Date of Exam:03/19/20 CT ABDOMEN/PELVIS WO PROCEDURE: CT abdomen and pelvis without contrast. TECHNIQUE: Multiple contiguous axial images were obtained through the abdomen and pelvis without the use of intravenous contrast. Auto Exposure Controls were utilized during the CT exam to meet ALARA standards for radiation dose reduction. INDICATION: Abdominal distention, decreased ostomy output. COMPARISON: 03/18/2020. FINDINGS: The lung bases are clear. There is vicarious secretion of contrast within the gallbladder. Overall, there is increasing colonic distention. Previous measurement of the cecum was 7.8 cm, now cecum measures 8.2 cm. Air-fluid levels persist. The remainder of the small bowel is decompressed. There is thickening of the splenic flexure of the colon. No obvious pneumatosis intestinalis is seen. There is bowel fecal matter at the level of the left midabdominal colostomy which is unchanged from the prior exam. There is no free air or free fluid. There is distention of the urinary bladder. The visualized solid organs are stable. Lung bases are clear. IMPRESSION: 1. Worsening colonic distention with unchanged distal colonic constipation at the level of the colostomy. 2. New thickening of the splenic flexure indicating edema of the bowel wall. No pneumatosis intestinalis is identified. 3. No free air, free fluid or abscess. Dictated by: Dictated on workstation # [id number] Dict: 03/19/202046 Trans: 03/19/202054 [facility] [id number] Interpreted by: RODY PINON Electronically signed by: RODY PINON 03/19/202054 Departure Communication (Admissions) Time/Spoke to Admitting Phy: 21:45 Dr. Dhaliwal Time/Spoke to Consulting Phy: 21:00 Dr. Mathews Impression Primary Impression: Colitis Additional Impression: Constipation Qualified Codes: K59.00 - Constipation, unspecified Disposition: ADMITTED INPATIENT Condition: Improved Admissions Decision to Admit Reason: Admit from ER (General) Decision to Admit/Date: Mar 19, 2020 Time/Decision to Admit Time: 21:00 Departure-Patient Inst. Referrals: RYAN MULLEN MD (PCP/Family) Primary Care Physician Copy Copies To 1: RYAN MULLEN MD, JOSHUA T MD Mar 19, 2020 18:38
[2020-03-19 18:55] LABS: ALBUMIN 3.7 GM/DL (3.2-4.5); BILIRUBIN,TOTAL 0.2 MG/DL (0.1-1.0); CALCIUM 8.6 MG/DL (8.5-10.1); CREATININE SERUM 1.47 MG/DL (0.60-1.30); MAGNESIUM 1.9 MG/DL (1.6-2.4); POTASSIUM 3.4 MMOL/L (3.6-5.0); TOTAL PROTEIN 7.1 GM/DL (6.4-8.2)
--- NOTE | 2020-03-19 18:57 | Diagnostic Imaging Report ---
INDICATION: Abdominal pain and distention. COMPARISON: 03/18/2020. EXAMINATION: KUB and upright views of the abdomen were obtained. FINDINGS: Mild to moderate colonic distention with air-fluid levels. No significant constipation is seen. There is no large pocket of free air. Colostomy is seen in the left midabdomen. IMPRESSION: 1. Mild to moderate colonic distention with air-fluid levels, possible ileus or partial obstruction. This was seen on the prior CT examination and may be related to constipation. 2. No free air identified. Dictated by: Dictated on workstation # [id number]
--- OUTSIDE RECORDS SUMMARY | 2020-03-19 18:58 | XMS REPORT | Encounter Summary ---
Author Author [facility] Organization [facility] Address Unknown Phone Unavailable Care Team Providers Care Senior Materials Analyst Name Role Phone Self, James ADKINS PCP Unavailable Encounter Details Care Team Description Date Type Department 01/06/2020 Travel Social History Date Tobacco Use Types Packs/Day Years Used Current Every Day Smoker Cigarettes 2 37 Smokeless Tobacco: Former Chew User Comments: Continues 1.5 PPD, is planning on coming down Drinks/Week oz/Week Comments Alcohol Use 0 Standard drinks or equivalent 0.0 No Sex Assigned at Date Recorded Not on file Date Recorded COVID-19 Exposure Response 01/06/2020 10:04 AM CDT In the last month, have you been in contact with No / Unsure someone who was confirmed or suspected to have Coronavirus / COVID-19? documented as of this encounter Plan of Treatment Not on filedocumented as of this encounter Visit Diagnoses Not on filedocumented in this encounter
--- OUTSIDE RECORDS SUMMARY | 2020-03-19 18:58 | XMS REPORT | Clinical Summary ---
Author Author [facility] Organization [facility] Address Unknown Phone Unavailable Care Team Providers Care Access Coordinator Name Role Phone Self, James ADKINS PCP Unavailable Source Comments Some departments are not documenting in the electronic medical record. If you d o not see the information that you expected, contact Release of Information in [facility] [employer] Information Management department at [phone] for further assistan ce in locating additional records.[facility] Allergies Comments Active Allergy Reactions Severity Noted [...] epilepsy 01/06/2020 Office Visit Psychiatry 01/06/2020 Travel from Last 3 Months Family History Medical [...] Assigned at Date Recorded Not on file Last Filed Vital Signs Reading Time Taken Comments Vital Sign 106/73 01/06/2020 10:01 AM CDT Blood Pressure 70 01/06/2020 10:01 AM CDT Pulse 36.3 C (97.3 F) 02/28/2017 2:14 PM CDT Temperature 15 02/25/2016 11:02 AM CDT Respiratory Rate 97% 10/16/2015 1:32 PM [facility] Oxygen Saturation - - Inhaled Oxygen Concentration 70.3 kg (155 lb) 09/20/2019 2:39 PM [facility] Weight 182.9 cm (6') 09/20/2019 2:39 PM [employer] Height 21.02 09/20/2019 2:39 PM [employer] Body Mass Index Plan of Treatment Health [...] Phone Address Plan / Dates Group Medicaid [facility] MEDICAID [place] [facility] [id number] 2012-P [employer] [place] (Home) [address] [place] [address] 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
--- OUTSIDE RECORDS SUMMARY | 2020-03-19 18:58 | XMS REPORT | Encounter Summary ---
Author Author [facility] Organization [facility] Address Unknown Phone Unavailable Care Team Providers Care Sleep Technologist Name Role Phone Self, James ADKINS PCP Unavailable Reason for Visit * Reason Onset Date Comments Medication Question 02/10/2020 Encounter Details Care Team Description Date Type Department Marycruz Santos MD [address] [facility] L[address] [place] [address] Medication Question 02/10/2020 Telephone [facility] [address] [place] [address] Social History Date Tobacco Use Types Packs/Day Years Used Current Every Day Smoker Cigarettes 2 37 Smokeless Tobacco: Former Chew User Comments: Continues 1.5 PPD, is planning on coming down Drinks/Week oz/Week Comments Alcohol Use 0 Standard drinks or equivalent 0.0 No Sex Assigned at Date Recorded Not on file documented as of this encounter Miscellaneous Notes [...]
--- OUTSIDE RECORDS SUMMARY | 2020-03-19 18:59 | XMS REPORT | Encounter Summary ---
Author Author [facility] Organization [facility] Address Unknown Phone Unavailable Care Team Providers Care Welding Teacher Name Role Phone Self, James ADKINS PCP Unavailable Reason for Visit * Reason Onset Date Comments Prior Authorization 12/05/2019 Dilantin 100 mg a pproved Encounter Details Care Team Description Date Type Department Kiersten Grover RNhead pastry chef (Dilantin 100 mg ap proved ) 12/05/2019 Telephone [facility] [id number] [place], [place] [id number] Social History Date Tobacco Use Types Packs/Day [...] Dilantin 100 mg approved for coverage by [facility] jaspreet. The drug is approved rick the coverage until 12/01/20 Noted Form scanned in pt's chart Vero Grover RN documented in this encounter Plan of Treatment Not on filedocumented as of this encounter Visit Diagnoses Not on filedocumented in this encounter
--- OUTSIDE RECORDS SUMMARY | 2020-03-19 18:59 | XMS REPORT | Encounter Summary ---
Author Author [facility] Organization [facility] Address Unknown Phone Unavailable Care Team Providers Care Booster Station Operator Name Role Phone James Mullen MD PCP Unavailable Reason for Visit * Reason Comments Medication Refill Schizophrenia * (Routine) Referred By Contact Referred To Contact Status Reason Specialty Diagnoses / Procedures Shahla Grewal MD [address] [place] [address] Incomplete Psychiatry Encounter Details Care Team Description Date Type Department Shahla Grewal MD [address] [place], [place] [id number] Jaciel Villalba MD [address] [place], [place] [id number] Anxiety disorder, unspecified type (Prim ever Dx); Schizophrenia, paranoid type (HCC) 10/01/2019 Office Visit [facility] [address] [facility] [address] [place] [address] Social History Date Tobacco Use Types Packs/Day Years Used Current Every Day Smoker Cigarettes 2 37 Smokeless Tobacco: Former Chew User Comments: Continues 1.5 PPD, is planning on coming down Drinks/Week oz/Week Comments Alcohol Use 0 Standard drinks or equivalent 0.0 No Sex Assigned at Date Recorded Not on file documented as of this encounter Progress Notes * Jaciel Villalba MD - 10/01/2019 12:30 PM SPINNING OPERATOR Subjective: Jose Yang is a 57 y.o. [...] use. 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 He [...] Affect: euthymic ; mood congruent Thought Process: [place]. Thought Content: denies SI, [place]. Minor paranoid [...] RTC in one month for supportive psychotherapy. NING OPERATOR documented in this encounter Plan of Treatment [...]
--- OUTSIDE RECORDS SUMMARY | 2020-03-19 18:59 | XMS REPORT | Encounter Summary ---
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 Office Visit The [facility] [address] [facility] [address] [place] [address] Social History Date Tobacco Use Types Packs/Day [...] on file documented as of this encounter Last Filed Vital Signs Reading Time Taken Comments Vital Sign 102/72 09/20/2019 2:39 PM THRILL PERFORMER Blood Pressure 99 09/20/2019 2:39 PM THRILL PERFORMER Pulse - - Temperature - - Respiratory Rate - - Oxygen Saturation - - Inhaled Oxygen Concentration 70.3 kg (155 lb) 09/20/2019 2:39 PM THRILL PERFORMER Weight 182.9 cm (6') 09/20/2019 2:39 PM THRILL PERFORMER Height 21.02 09/20/2019 2:39 PM THRILL PERFORMER Body Mass Index documented in this encounter Progress Notes * Sadi Albright MD - 09/20/2019 3:15 PM THRILL PERFORMER Subjective: History of Present Illness Jose Yang [...] the bilateral deltoids, biceps, triceps, wrist extensors, billing and quality technician, ilio psoas, quads, hamstrings, gastrocnemius, and tibialis [...] any side effects from the antiepileptic medications. LL PERFORMER documented in this encounter Plan of Treatment Not on filedocumented as of this encounter Visit Diagnoses Diagnosis Left frontal lobe epilepsy Localization-related (focal) (partial) epilepsy and epileptic syndromes with complex partial seizures, without mention of intractabl e epilepsy documented in this encounter
--- OUTSIDE RECORDS SUMMARY | 2020-03-19 18:59 | XMS REPORT | Encounter Summary ---
Author Author [facility] Organization [facility] Address Unknown Phone Unavailable Care Team Providers Care Insurance Producer Name Role Phone Self, James ADKINS PCP Unavailable Reason for Visit * Reason Onset Date Comments Prior Authorization 10/01/2019 Encounter Details Care Team Description Date Type Department Jaciel Villalba MD [address] [place] [id number] Prior Authorization 10/01/2019 Telephone [facility] [address] [facility] [place] [address] [place] [address] Social History Date Tobacco Use [...] - [place] - 10/01/2019 1:22 PM INDEPENDENT SALES REPRESENTATIVE PA required for Olanzapine as written, orders adjusted to maintain goal dose and comply with quantity restrictions per protocol. PENDENT SALES REPRESENTATIVE documented in this encounter Plan of Treatment Not on filedocumented as of this encounter Visit Diagnoses Diagnosis Schizophrenia, paranoid type (HCC) Paranoid schizophrenia, unspecified con dition documented in this encounter
--- OUTSIDE RECORDS SUMMARY | 2020-03-19 18:59 | XMS REPORT | Encounter Summary ---
Author Author [facility] Organization [facility] Address Unknown Phone Unavailable Care Team Providers Care Pulp Cooker Name Role Phone Self, James ADKINS PCP Unavailable Reason for Visit * Reason Comments Medication Refill Encounter Details Care Team Description Date [place] [address] [facility] [place] [address] [place] [address] [phone] 11/29/2019 Refill The [facility] [address] [facility] [address] [place] [address] Social History Date Tobacco Use Types Packs/Day Years Used Current Every Day Smoker Cigarettes 2 37 Smokeless Tobacco: Former Chew User Comments: Continues 1.5 PPD, is planning on coming down Drinks/Week oz/Week Comments Alcohol Use 0 Standard drinks or equivalent 0.0 No Sex Assigned at Date Recorded Not on file documented as of this encounter Plan of Treatment Not on filedocumented as of this encounter Visit Diagnoses Not on filedocumented in this encounter
--- OUTSIDE RECORDS SUMMARY | 2020-03-19 18:59 | XMS REPORT | Encounter Summary ---
Author Author [facility] Organization [facility] Address Unknown Phone Unavailable Care Team Providers Care Geochemist Name Role Phone Self, James ADKINS PCP Unavailable Reason for Visit * Reason Comments Other Encounter Details Care Team Description Date Type Department Jaciel Villalba MD [address] [place] [address] Marycruz Santos MD [address] [facility] [address] [place] [address] Schizophrenia, paranoid type (HCC) (Prim ever Dx); Other specified anxiety disorders; Tobacco dependence; Left frontal lobe epilepsy 01/06/2020 Office Visit [facility] [address] [place] [address] Social History Date Tobacco Use [...] update: He was hospitalized in September at [facility] there in [place]- -sick from eating bad food and then [...] or drugs. He lives in an [facility] in [place]. He has a nurse from [facility] who puts together his pil l box every 2 weeks. Denies any seizures. I finally found his pharmacy: [facility] [address] [facility] [place] [address]. Self filled his mirtazapine 30mg qhs [...] qhs. Both written by Dr. Mullen . [facility] in 3 months. Call with any questions. [...]
--- OUTSIDE RECORDS SUMMARY | 2020-03-19 19:00 | XMS REPORT | Continuity of Care Document ---
Author Organization Unknown Address Unknown Phone Unavailable Allergies Active Description Code Type Severity Reaction Onset Reported/Identified Relationship to Patient Clinical Status Yes nitroglycerin [id number] Elvin g Allergy Unknown N/A 04/14/2016 Yes morphine [id number] Drug Allergy Mild nausea 01/15/2019 Medications There [...] Ot I25.1 0 ATHSCL HEART DISEASE OF [place] CORONARY GARO QUEZADA MD, Ot I25.2 OLD MYOCARDIAL INFARCTION GARO QUEZADA MD Ot Z51.1 1 ENCOUNTER FOR ANTINEOPLASTIC CHEMOTHERAP GARO QUEZADA MD Ot Z79.8 2 LONGTERM (CURRENT) USE OF ASPIRIN GARO QUEZADA MD, Ot Z79.8 99 OTHER COLOR WORKER (CURRENT) DRUG THERAPY GARO QUEZADA MD, Ot [...] Sampson Ot I25.10 ATHSCL HEART DISEASE OF [place] CORONARY VALENTIN MEANS Adrián Ot I25.2 OLD MYOCARDIAL INFARCTION VALENTIN MEANS Adrián Ot Z51.11 ENCOUNTER FOR ANTINEOPLASTIC CHEMOTHERAP VALENTIN MEANS Adrián Ot Z79.82 COLOR WORKER (CURRENT) USE OF ASPIRIN MIGUELANGEL VALENTIN Sampson Ot Z79.899 OTHER COLOR WORKER (CURRENT) DRUG THERAPY MIGUELANGEL VALENTIN Sampson Ot Z93.3 COLOSTOMY STATUS 07/06/1056 TRU ADKINS, JIM Law Ot C34.11 MALIGNANT NEOPLASM OF UPPER LOBE, RIGHT 07/06/1056 JIM OTT MD Ot F17.210 NICOTINE DEPENDENCE, CIGARETTES, UNCOMPL 07/06/1056 JIM OTT MD Ot G40.909 EPILEPSY, UNSP, NOT INTRACTABLE, WITHOUT 07/06/1056 JIM OTT MD Ot I25.10 ATHSCL HEART DISEASE OF [place] CORONARY 07/06/1056 JIM OTT MD Ot I25.2 [...] Ot I25. 10 ATHSCL HEART DISEASE OF [place] CORONARY 07/06/1437 GARO QUEZADA MD Ot I25. 2 OLD MYOCARDIAL INFARCTION 07/06/1437 GARO QUEZADA MD Ot Z51. 11 ENCOUNTER FOR ANTINEOPLASTIC CHEMOTHERAP 07/06/1437 GARO QUEZADA MD Ot Z79.899 OTHER LONGTERM (CURRENT) DRUG THERAPY 07/06/1528 JIMY ROBERTSON MD Ot C34.11 MALIGNANT NEOPLASM OF UPPER LOBE, RIGHT 07/06/1528 JIMY ROBERTSON MD Ot F17.210 NICOTINE DEPENDENCE, CIGARETTES, UNCOMPL 07/06/1528 JIMY ROBERTSON MD Ot G40.909 EPILEPSY, UNSP, NOT INTRACTABLE, WITHOUT 07/06/1528 JIMY ROBERTSON MD Ot I25.10 ATHSCL HEART DISEASE OF [place] CORONARY 07/06/1528 JIMY ROBERTSON MD Ot I25.2 OLD MYOCARDIAL INFARCTION 07/06/1528 JIMY ROBERTSON MD Ot Z51.11 ENCOUNTER FOR ANTINEOPLASTIC CHEMOTHERAP 07/06/1528 JIMY ROBERTSON MD Ot Z79.899 OTHER LONGTERM (CURRENT) DRUG THERAPY 12/28/2015 JIM OTT MD Ot C34.11 MALIGNANT NEOPLASM OF UPPER LOBE, RIGHT 12/28/2015 JIM OTT MD Ot F17.210 NICOTINE DEPENDENCE, CIGARETTES, UNCOMPL 12/28/2015 JIM OTT MD Ot G40.909 EPILEPSY, UNSP, NOT INTRACTABLE, WITHOUT 12/28/2015 JIM OTT MD Ot I25.10 ATHSCL HEART DISEASE OF [place] CORONARY 12/28/2015 JIM OTT MD Ot I25.2 [...] MD Ot I25.10 ATHSCL HEART DISEASE OF [place] CORONARY 01/25/2016 JIM OTT MD Ot I25.2 [...] MD Ot I25.10 ATHSCL HEART DISEASE OF [place] CORONARY 03/13/2016 JIM OTT MD Ot I25.2 [...] MD Ot I25.10 ATHSCL HEART DISEASE OF [place] CORONARY 03/24/2016 JIM OTT MD Ot I25.2 [...] MD Ot I25.10 ATHSCL HEART DISEASE OF [place] CORONARY 04/14/2016 JIM OTT MD Ot I25.2 [...] MD Ot I25.10 ATHSCL HEART DISEASE OF [place] CORONARY 04/14/2016 JIM OTT MD Ot I25.2 [...] MD Ot I25.10 ATHSCL HEART DISEASE OF [place] CORONARY 04/28/2016 JIM OTT MD Ot I25.2 [...] MD Ot I25.10 ATHSCL HEART DISEASE OF [place] CORONARY 05/09/2016 JIM OTT MD Ot I25.2 [...] MD Ot I25.10 ATHSCL HEART DISEASE OF [place] CORONARY 05/25/2016 JIM OTT MD, Ot I25.2 [...] MD Ot I25.10 ATHSCL HEART DISEASE OF [place] CORONARY 05/31/2016 JIM OTT MD Ot I25.2 OLD MYOCARDIAL INFARCTION 05/31/2016 JIM OTT MD Ot I73.89 OTHER SPECIFIED PERIPHERAL VASCULAR DISE 05/31/2016 JIM OTT MD Ot R63.4 ABNORMAL WEIGHT LOSS 05/31/2016 JIM OTT MD Ot Z79.899 OTHER LONGTERM (CURRENT) DRUG THERAPY 06/23/2016 JIM OTT MD Ot C34.11 MALIGNANT NEOPLASM OF UPPER LOBE, RIGHT 06/23/2016 JIM OTT MD Ot F17.210 NICOTINE DEPENDENCE, CIGARETTES, UNCOMPL 06/23/2016 JIM OTT MD Ot G40.909 EPILEPSY, UNSP, NOT INTRACTABLE, WITHOUT 06/23/2016 JIM OTT MD Ot I25.10 ATHSCL HEART DISEASE OF [place] CORONARY 06/23/2016 JIM OTT MD Ot I25.2 OLD MYOCARDIAL INFARCTION 06/23/2016 JIM OTT MD Ot I73.89 OTHER SPECIFIED PERIPHERAL VASCULAR DISE 06/23/2016 JIM OTT MD Ot R63.4 ABNORMAL WEIGHT LOSS 06/23/2016 JIM OTT MD Ot Z79.899 OTHER COLOR WORKER (CURRENT) DRUG THERAPY 08/22/2016 JIM OTT MD Ot C34.11 MALIGNANT NEOPLASM OF UPPER LOBE, RIGHT 08/22/2016 JIM OTT MD Ot F17.210 NICOTINE DEPENDENCE, CIGARETTES, UNCOMPL 08/22/2016 JIM OTT MD Ot G40.909 EPILEPSY, UNSP, NOT INTRACTABLE, WITHOUT 08/22/2016 JIM OTT MD Ot I25.10 ATHSCL HEART DISEASE OF [place] CORONARY 08/22/2016 JIM OTT MD Ot I25.2 OLD MYOCARDIAL INFARCTION 08/22/2016 JIM OTT MD Ot I73.89 OTHER SPECIFIED PERIPHERAL VASCULAR DISE 08/22/2016 JIM OTT MD Ot R63.4 ABNORMAL WEIGHT LOSS 08/22/2016 JIM OTT MD Ot Z51.11 ENCOUNTER FOR ANTINEOPLASTIC CHEMOTHERAP 08/22/2016 JIM OTT MD Ot Z79.899 OTHER LONGTERM (CURRENT) DRUG THERAPY 08/23/2016 JIM OTT MD Ot C34.11 MALIGNANT NEOPLASM OF UPPER LOBE, RIGHT 08/23/2016 JIM OTT MD Ot F17.210 NICOTINE DEPENDENCE, CIGARETTES, UNCOMPL 08/23/2016 JIM OTT MD Ot G40.909 EPILEPSY, UNSP, NOT INTRACTABLE, WITHOUT 08/23/2016 JIM OTT MD Ot I25.10 ATHSCL HEART DISEASE OF [place] CORONARY 08/23/2016 JIM OTT MD Ot I25.2 OLD MYOCARDIAL INFARCTION 08/23/2016 JIM OTT MD Ot I73.89 OTHER SPECIFIED PERIPHERAL VASCULAR DISE 08/23/2016 JIM OTT MD Ot R63.4 ABNORMAL WEIGHT LOSS 08/23/2016 JIM OTT MD Ot Z51.11 ENCOUNTER FOR ANTINEOPLASTIC CHEMOTHERAP 08/23/2016 JIM OTT MD Ot Z79.899 OTHER COLOR WORKER (CURRENT) DRUG THERAPY 08/24/2016 JIM OTT MD Ot C34.11 MALIGNANT NEOPLASM OF UPPER LOBE, RIGHT 08/24/2016 JIM OTT MD Ot F17.210 NICOTINE DEPENDENCE, CIGARETTES, UNCOMPL 08/24/2016 JIM OTT MD Ot G40.909 EPILEPSY, UNSP, NOT INTRACTABLE, WITHOUT 08/24/2016 JIM OTT MD Ot I25.10 ATHSCL HEART DISEASE OF [place] CORONARY 08/24/2016 JIM OTT MD Ot I25.2 OLD MYOCARDIAL INFARCTION 08/24/2016 JIM OTT MD Ot I73.89 OTHER SPECIFIED PERIPHERAL VASCULAR DISE 08/24/2016 JIM OTT MD Ot R63.4 ABNORMAL WEIGHT LOSS 08/24/2016 JIM OTT MD Ot Z51.11 ENCOUNTER FOR ANTINEOPLASTIC CHEMOTHERAP 08/24/2016 JIM OTT MD Ot Z79.899 OTHER COLOR WORKER (CURRENT) DRUG THERAPY 08/24/2016 JIM OTT MD Ot C34.11 MALIGNANT NEOPLASM OF UPPER LOBE, RIGHT 08/24/2016 JIM OTT MD Ot F17.210 NICOTINE DEPENDENCE, CIGARETTES, UNCOMPL 08/24/2016 JIM OTT MD Ot G40.909 EPILEPSY, UNSP, NOT INTRACTABLE, WITHOUT 08/24/2016 JIM OTT MD Ot I25.10 ATHSCL HEART DISEASE OF [place] CORONARY 08/24/2016 JIM OTT MD Ot I25.2 OLD MYOCARDIAL INFARCTION 08/24/2016 JIM OTT MD Ot I73.89 OTHER SPECIFIED PERIPHERAL VASCULAR DISE 08/24/2016 JIM OTT MD Ot R63.4 ABNORMAL WEIGHT LOSS 08/24/2016 JIM OTT MD Ot Z51.11 ENCOUNTER FOR ANTINEOPLASTIC CHEMOTHERAP 08/24/2016 JIM OTT MD Ot Z79.899 OTHER LONGTERM (CURRENT) DRUG THERAPY 08/30/2016 JIM OTT MD [...] MD Ot I25.10 ATHSCL HEART DISEASE OF [place] CORONARY 09/06/2016 JIM OTT MD Ot I25.2 OLD MYOCARDIAL INFARCTION 09/06/2016 JIM OTT MD Ot I73.89 OTHER SPECIFIED PERIPHERAL VASCULAR DISE 09/06/2016 IJM OTT MD Ot R63.4 ABNORMAL WEIGHT LOSS 09/06/2016 JIM OTT MD Ot Z51.11 ENCOUNTER FOR ANTINEOPLASTIC CHEMOTHERAP 09/06/2016 JIM OTT MD Ot Z79.899 OTHER COLOR WORKER (CURRENT) DRUG THERAPY 09/13/2016 JIM OTT MD [...] MD Ot I25.10 ATHSCL HEART DISEASE OF [place] CORONARY 09/28/2016 JIM OTT MD Ot I25.2 OLD MYOCARDIAL INFARCTION 09/28/2016 JIM OTT MD Ot I73.89 OTHER SPECIFIED PERIPHERAL VASCULAR DISE 09/28/2016 JIM OTT MD Ot R63.4 ABNORMAL WEIGHT LOSS 09/28/2016 JIM OTT MD Ot Z51.11 ENCOUNTER FOR ANTINEOPLASTIC CHEMOTHERAP 09/28/2016 JIM OTT MD Ot Z79.899 OTHER COLOR WORKER (CURRENT) DRUG THERAPY 10/04/2016 JIM OTT MD Ot C34.11 MALIGNANT NEOPLASM OF UPPER LOBE, RIGHT 10/04/2016 JIM OTT MD Ot F17.210 NICOTINE DEPENDENCE, CIGARETTES, UNCOMPL 10/04/2016 JIM OTT MD Ot G40.909 EPILEPSY, UNSP, NOT INTRACTABLE, WITHOUT 10/04/2016 JIM OTT MD Ot I25.10 ATHSCL HEART DISEASE OF [place] CORONARY 10/04/2016 JIM OTT MD Ot I25.2 OLD MYOCARDIAL INFARCTION 10/04/2016 JIM OTT MD Ot I73.89 OTHER SPECIFIED PERIPHERAL VASCULAR DISE 10/04/2016 JIM OTT MD Ot R63.4 ABNORMAL WEIGHT LOSS 10/04/2016 JIM OTT MD Ot Z51.11 ENCOUNTER FOR ANTINEOPLASTIC CHEMOTHERAP 10/04/2016 JIM OTT MD Ot Z79.899 OTHER COLOR WORKER (CURRENT) DRUG THERAPY 10/27/2016 JIM OTT MD, Ot C34.11 MALIGNANT NEOPLASM OF UPPER LOBE, RIGHT 10/27/2016 JIM OTT MD Ot F17.210 NICOTINE DEPENDENCE, CIGARETTES, UNCOMPL 10/27/2016 JIM OTT MD Ot G40.909 EPILEPSY, UNSP, NOT INTRACTABLE, WITHOUT 10/27/2016 JIM OTT MD Ot I25.10 ATHSCL HEART DISEASE OF [place] CORONARY 10/27/2016 JIM OTT MD Ot I25.2 OLD MYOCARDIAL INFARCTION 10/27/2016 JIM OTT MD Ot I73.89 OTHER SPECIFIED PERIPHERAL VASCULAR DISE 10/27/2016 JIM OTT MD, Ot R63.4 ABNORMAL WEIGHT LOSS 10/27/2016 JIM OTT MD Ot Z51.11 ENCOUNTER FOR ANTINEOPLASTIC CHEMOTHERAP 10/27/2016 JIM OTT MD, Ot Z79.899 OTHER COLOR WORKER (CURRENT) DRUG THERAPY 10/27/2016 JIM OTT MD [...] MD Ot I25.10 ATHSCL HEART DISEASE OF [place] CORONARY 11/01/2016 JIM OTT MD Ot I25.2 OLD MYOCARDIAL INFARCTION 11/01/2016 JIM OTT MD Ot I73.89 OTHER SPECIFIED PERIPHERAL VASCULAR DISE 11/01/2016 JIM OTT MD Ot R63.4 ABNORMAL WEIGHT LOSS 11/01/2016 JIM OTT MD, Ot Z51.11 ENCOUNTER FOR ANTINEOPLASTIC CHEMOTHERAP 11/01/2016 JIM OTT MD, Ot Z79.899 OTHER LONGTERM (CURRENT) DRUG THERAPY 11/08/2016 JIM OTT MD, [...] MD, Ot I25.10 ATHSCL HEART DISEASE OF [place] CORONARY 11/09/2016 JIM OTT MD, Ot I25.2 OLD MYOCARDIAL INFARCTION 11/09/2016 JIM OTT MD, Ot I73.89 OTHER SPECIFIED PERIPHERAL VASCULAR DISE 11/09/2016 JIM OTT MD, Ot R63.4 ABNORMAL WEIGHT LOSS 11/09/2016 JIM OTT MD, Ot Z51.11 ENCOUNTER FOR ANTINEOPLASTIC CHEMOTHERAP 11/09/2016 JIM OTT MD, Ot Z79.899 OTHER COLOR WORKER (CURRENT) DRUG THERAPY 11/09/2016 JIM OTT MD, [...] MD Ot I25.10 ATHSCL HEART DISEASE OF [place] CORONARY 11/21/2016 JIM OTT MD Ot I25.2 OLD MYOCARDIAL INFARCTION 11/21/2016 JIM OTT MD Ot I73.89 OTHER SPECIFIED PERIPHERAL VASCULAR DISE 11/21/2016 JIM OTT MD Ot R63.4 ABNORMAL WEIGHT LOSS 11/21/2016 JIM OTT MD Ot Z51.11 ENCOUNTER FOR ANTINEOPLASTIC CHEMOTHERAP 11/21/2016 JIM OTT MD Ot Z79.899 OTHER COLOR WORKER (CURRENT) DRUG THERAPY 11/22/2016 JIM OTT MD, Ot C34.11 MALIGNANT NEOPLASM OF UPPER LOBE, RIGHT 11/22/2016 JIM OTT MD Ot F17.210 NICOTINE DEPENDENCE, CIGARETTES, UNCOMPL 11/22/2016 JIM OTT MD Ot G40.909 EPILEPSY, UNSP, NOT INTRACTABLE, WITHOUT 11/22/2016 JIM OTT MD Ot I25.10 ATHSCL HEART DISEASE OF [place] CORONARY 11/22/2016 JIM OTT MD Ot I25.2 OLD MYOCARDIAL INFARCTION 11/22/2016 JIM OTT MD Ot I73.89 OTHER SPECIFIED PERIPHERAL VASCULAR DISE 11/22/2016 JIM OTT MD Ot R63.4 ABNORMAL WEIGHT LOSS 11/22/2016 JIM OTT MD Ot Z51.11 ENCOUNTER FOR ANTINEOPLASTIC CHEMOTHERAP 11/22/2016 JIM OTT MD Ot Z79.899 OTHER COLOR WORKER (CURRENT) DRUG THERAPY 11/24/2016 JIM OTT MD [...] MD Ot I25.10 ATHSCL HEART DISEASE OF [place] CORONARY 11/29/2016 JIM OTT MD Ot I25.2 OLD MYOCARDIAL INFARCTION 11/29/2016 JIM OTT MD Ot I73.89 OTHER SPECIFIED PERIPHERAL VASCULAR DISE 11/29/2016 JIM OTT MD Ot R63.4 ABNORMAL WEIGHT LOSS 11/29/2016 JIM OTT MD, Ot Z51.11 ENCOUNTER FOR ANTINEOPLASTIC CHEMOTHERAP 11/29/2016 JIM OTT MD, Ot Z79.899 OTHER LONGTERM (CURRENT) DRUG THERAPY 12/12/2016 JIM OTT MD, Ot C34.11 MALIGNANT NEOPLASM OF UPPER LOBE, RIGHT 12/12/2016 JIM OTT MD, Ot F17.210 NICOTINE DEPENDENCE, CIGARETTES, UNCOMPL 12/12/2016 JIM OTT MD, Ot G40.909 EPILEPSY, UNSP, NOT INTRACTABLE, WITHOUT 12/12/2016 JIM OTT MD Ot I25.10 ATHSCL HEART DISEASE OF [place] CORONARY 12/12/2016 JIM OTT MD Ot I25.2 OLD MYOCARDIAL INFARCTION 12/12/2016 JIM OTT MD Ot I73.89 OTHER SPECIFIED PERIPHERAL VASCULAR DISE 12/12/2016 JIM OTT MD Ot R63.4 ABNORMAL WEIGHT LOSS 12/12/2016 JIM OTT MD Ot Z51.11 ENCOUNTER FOR ANTINEOPLASTIC CHEMOTHERAP 12/12/2016 JIM OTT MD Ot Z79.899 OTHER LONGTERM (CURRENT) DRUG THERAPY 12/22/2016 JIM OTT MD, [...] MD Ot I25.10 ATHSCL HEART DISEASE OF [place] CORONARY 12/22/2016 JIM OTT MD, Ot I25.2 OLD MYOCARDIAL INFARCTION 12/22/2016 JIM OTT MD Ot I73.89 OTHER SPECIFIED PERIPHERAL VASCULAR DISE 12/22/2016 JIM OTT MD Ot R63.4 ABNORMAL WEIGHT LOSS 12/22/2016 JIM OTT MD, Ot Z51.11 ENCOUNTER FOR ANTINEOPLASTIC CHEMOTHERAP 12/22/2016 JIM OTT MD, Ot Z79.899 OTHER COLOR WORKER (CURRENT) DRUG THERAPY 12/23/2016 VIVIANA VERAS MD [...] MD Ot I25.10 ATHSCL HEART DISEASE OF [place] CORONARY 12/26/2016 JIM OTT MD Ot I25.2 OLD MYOCARDIAL INFARCTION 12/26/2016 JIM OTT MD Ot I73.89 OTHER SPECIFIED PERIPHERAL VASCULAR DISE 12/26/2016 JIM OTT MD Ot R63.4 ABNORMAL WEIGHT LOSS 12/26/2016 JIM OTT MD Ot Z51.11 ENCOUNTER FOR ANTINEOPLASTIC CHEMOTHERAP 12/26/2016 JIM OTT MD, Ot Z79.899 OTHER LONGTERM (CURRENT) DRUG THERAPY 01/05/2017 JIM OTT MD, [...] MD Ot I25.10 ATHSCL HEART DISEASE OF [place] CORONARY 02/27/2017 JIM OTT MD Ot I25.2 OLD MYOCARDIAL INFARCTION 02/27/2017 JIM OTT MD Ot I73.89 OTHER SPECIFIED PERIPHERAL VASCULAR DISE 02/27/2017 JIM OTT MD Ot R63.4 ABNORMAL WEIGHT LOSS 02/27/2017 JIM OTT MD Ot Z51.11 ENCOUNTER FOR ANTINEOPLASTIC CHEMOTHERAP 02/27/2017 JIM OTT MD Ot Z79.899 OTHER LONGTERM (CURRENT) DRUG THERAPY 03/06/2017 GARO QUEZADA MD, Ot C34. 11 MALIGNANT NEOPLASM OF UPPER LOBE, RIGHT 03/06/2017 GARO QUEZADA MD, Ot F17.210 NICOTINE DEPENDENCE, CIGARETTES, UNCOMPL 03/06/2017 GARO QUEZADA MD, Ot G40.909 EPILEPSY, UNSP, NOT INTRACTABLE, WITHOUT 03/06/2017 GARO QUEZADA MD, Ot I25. 10 ATHSCL HEART DISEASE OF [place] CORONARY 03/06/2017 GARO QUEZADA MD Ot I25. 2 OLD MYOCARDIAL INFARCTION 03/06/2017 GARO QUEZADA MD Ot I73. 89 OTHER SPECIFIED PERIPHERAL VASCULAR DISE 03/06/2017 GARO QUEZADA MD Ot R63. 4 ABNORMAL WEIGHT LOSS 03/06/2017 GARO QUEZADA MD Ot Z51. 11 ENCOUNTER FOR ANTINEOPLASTIC CHEMOTHERAP 03/06/2017 GARO QUEZADA MD Ot Z79.899 OTHER LONGTERM (CURRENT) DRUG THERAPY 03/07/2017 GARO QUEZADA MD Ot C34. 11 MALIGNANT NEOPLASM OF UPPER LOBE, RIGHT 03/07/2017 GARO QUEZADA MD Ot F17.210 NICOTINE DEPENDENCE, CIGARETTES, UNCOMPL 03/07/2017 GARO QUEZADA MD Ot G40.909 EPILEPSY, UNSP, NOT INTRACTABLE, WITHOUT 03/07/2017 GARO QUEZADA MD Ot I25. 10 ATHSCL HEART DISEASE OF [place] CORONARY 03/07/2017 GARO QUEZADA MD Ot I25. 2 OLD MYOCARDIAL INFARCTION 03/07/2017 GARO QUEZADA MD Ot I73. 89 OTHER SPECIFIED PERIPHERAL VASCULAR DISE 03/07/2017 GARO QUEZADA MD Ot R63. 4 ABNORMAL WEIGHT LOSS 03/07/2017 GARO QUEZADA MD Ot Z51. 11 ENCOUNTER FOR ANTINEOPLASTIC CHEMOTHERAP 03/07/2017 GARO QUEZADA MD Ot Z79.899 OTHER LONGTERM (CURRENT) DRUG THERAPY 03/15/2017 GARO QUEZADA MD [...] Ot I25. 10 ATHSCL HEART DISEASE OF [place] CORONARY 04/12/2017 GARO QUEZADA MD Ot I25. 2 OLD MYOCARDIAL INFARCTION 04/12/2017 GARO QUEZADA MD Ot I73. 89 OTHER SPECIFIED PERIPHERAL VASCULAR DISE 04/12/2017 GARO QUEZADA MD Ot R63. 4 ABNORMAL WEIGHT LOSS 04/12/2017 GARO QUEZADA MD Ot Z51. 11 ENCOUNTER FOR ANTINEOPLASTIC CHEMOTHERAP 04/12/2017 GARO QUEZADA MD Ot Z79.899 OTHER LONGTERM (CURRENT) DRUG THERAPY 04/27/2017 GARO QUEZADA MD Ot C34. 11 MALIGNANT NEOPLASM OF UPPER LOBE, RIGHT 04/27/2017 GARO QUEZADA MD Ot F17.210 NICOTINE DEPENDENCE, CIGARETTES, UNCOMPL 04/27/2017 GARO QUEZADA MD, Ot G40.909 EPILEPSY, UNSP, NOT INTRACTABLE, WITHOUT 04/27/2017 GARO QUEZADA MD Ot I25. 10 ATHSCL HEART DISEASE OF [place] CORONARY 04/27/2017 GARO QUEZADA MD Ot I25. 2 OLD MYOCARDIAL INFARCTION 04/27/2017 GARO QUEZADA MD Ot I73. 89 OTHER SPECIFIED PERIPHERAL VASCULAR DISE 04/27/2017 GARO QUEZADA MD Ot R63. 4 ABNORMAL WEIGHT LOSS 04/27/2017 GARO QUEZADA MD Ot Z51. 11 ENCOUNTER FOR ANTINEOPLASTIC CHEMOTHERAP 04/27/2017 GARO QUEZADA MD Ot Z79.899 OTHER LONGTERM (CURRENT) DRUG THERAPY 05/06/2017 GARO QUEZADA MD Ot C34. 11 MALIGNANT NEOPLASM OF UPPER LOBE, RIGHT 05/06/2017 GARO QUEZADA MD Ot F17.210 NICOTINE DEPENDENCE, CIGARETTES, UNCOMPL 05/06/2017 GARO QUEZADA MD Ot G40.909 EPILEPSY, UNSP, NOT INTRACTABLE, WITHOUT 05/06/2017 GARO QUEZADA MD Ot I25. 10 ATHSCL HEART DISEASE OF [place] CORONARY 05/06/2017 GARO QUEZADA MD Ot I25. 2 OLD MYOCARDIAL INFARCTION 05/06/2017 GARO QUEZADA MD Ot I73. 89 OTHER SPECIFIED PERIPHERAL VASCULAR DISE 05/06/2017 GARO QUEZADA MD Ot R63. 4 ABNORMAL WEIGHT LOSS 05/06/2017 GARO QUEZADA MD Ot Z51. 11 ENCOUNTER FOR ANTINEOPLASTIC CHEMOTHERAP 05/06/2017 GARO QUEZADA MD Ot Z79.899 OTHER COLOR WORKER (CURRENT) DRUG THERAPY 05/17/2017 GARO QUEZADA MD Ot C34. 11 MALIGNANT NEOPLASM OF UPPER LOBE, RIGHT 05/17/2017 GARO QUEZADA MD Ot F17.210 NICOTINE DEPENDENCE, CIGARETTES, UNCOMPL 05/17/2017 GARO QUEZADA MD Ot G40.909 EPILEPSY, UNSP, NOT INTRACTABLE, WITHOUT 05/17/2017 GARO QUEZADA MD Ot I25. 10 ATHSCL HEART DISEASE OF [place] CORONARY 05/17/2017 GARO QUEZADA MD Ot I25. 2 OLD MYOCARDIAL INFARCTION 05/17/2017 GARO QUEZADA MD Ot I73. 89 OTHER SPECIFIED PERIPHERAL VASCULAR DISE 05/17/2017 GARO QUEZADA MD Ot Z51. 11 ENCOUNTER FOR ANTINEOPLASTIC CHEMOTHERAP 05/17/2017 GARO QUEZADA MD Ot Z79.899 OTHER LONGTERM (CURRENT) DRUG THERAPY 05/30/2017 GARO QUEZADA MD, Ot C34. 11 MALIGNANT NEOPLASM OF UPPER LOBE, RIGHT 05/30/2017 GARO QUEZADA MD Ot F17.210 NICOTINE DEPENDENCE, CIGARETTES, UNCOMPL 05/30/2017 GARO QUEZADA MD Ot G40.909 EPILEPSY, UNSP, NOT INTRACTABLE, WITHOUT 05/30/2017 GARO QUEZADA MD Ot I25. 10 ATHSCL HEART DISEASE OF [place] CORONARY 05/30/2017 GARO QUEZADA MD Ot I25. 2 OLD MYOCARDIAL INFARCTION 05/30/2017 GARO QUEZADA MD Ot I73. 89 OTHER SPECIFIED PERIPHERAL VASCULAR DISE 05/30/2017 GARO QUEZADA MD Ot Z51. 11 ENCOUNTER FOR ANTINEOPLASTIC CHEMOTHERAP 05/30/2017 GARO QUEZADA MD Ot Z79.899 OTHER COLOR WORKER (CURRENT) DRUG THERAPY 05/30/2017 VALENTIN MEANS Ot C34.11 MALIGNANT NEOPLASM OF UPPER LOBE, RIGHT 05/30/2017 MIGUELANGEL, BOBAN N Ot F17.210 NICOTINE DEPENDENCE, CIGARETTES, UNCOMPL 05/30/2017 MIGUELANGELNIKOLEAN N Ot G40.909 EPILEPSY, UNSP, NOT INTRACTABLE, WITHOUT 05/30/2017 MIGUELANGEL, BOBAN N Ot I25.10 ATHSCL HEART DISEASE OF [place] CORONARY 05/30/2017 NIKOLE MEANSAN N Ot I25.2 OLD MYOCARDIAL INFARCTION 05/30/2017 VALENTIN MEANS N Ot I73.89 OTHER SPECIFIED PERIPHERAL VASCULAR DISE 05/30/2017 VALENTIN MEANS N Ot Z51.11 ENCOUNTER FOR ANTINEOPLASTIC CHEMOTHERAP 05/30/2017 MIGUELANGEL BOBAN N Ot Z79.899 OTHER COLOR WORKER (CURRENT) DRUG THERAPY 05/31/2017 MIGUELANGEL BOBAN N Ot C34.11 MALIGNANT NEOPLASM OF UPPER LOBE, RIGHT 05/31/2017 MIGUELANGEL BOBAN N Ot F17.210 NICOTINE DEPENDENCE, CIGARETTES, UNCOMPL 05/31/2017 MIGUELANGELNIKOLE SAMSONAN N Ot G40.909 EPILEPSY, UNSP, NOT INTRACTABLE, WITHOUT 05/31/2017 MIGUELANGEL, BOBAN N Ot H53.2 DIPLOPIA 05/31/2017 MIGUELANGEL, BOBAN N Ot I25.10 ATHSCL HEART DISEASE OF [place] CORONARY 05/31/2017 MIGUELANGEL BOBAN N Ot I25.2 OLD MYOCARDIAL INFARCTION 05/31/2017 MIGUELANGEL BOBAN N Ot Z79.899 OTHER COLOR WORKER (CURRENT) DRUG THERAPY 06/13/2017 MIGUELANGEL BOBAN N Ot C34.11 MALIGNANT NEOPLASM OF UPPER LOBE, RIGHT 06/13/2017 MIGUELANGELNIKLOEAN N Ot F17.210 NICOTINE DEPENDENCE, CIGARETTES, UNCOMPL 06/13/2017 MIGUELANGELNIKOLEAN N Ot G40.909 EPILEPSY, UNSP, NOT INTRACTABLE, WITHOUT 06/13/2017 MIGUELANGEL, BOBAN N Ot H53.2 DIPLOPIA 06/13/2017 MIGUELANGEL BOBAN N Ot I25.10 ATHSCL HEART DISEASE OF [place] CORONARY 06/13/2017 MIGUELANGEL BOBAN N Ot I25.2 OLD MYOCARDIAL INFARCTION 06/13/2017 MIGUELANGEL, BOBAN N Ot Z79.899 OTHER COLOR WORKER (CURRENT) DRUG THERAPY 06/13/2017 MIGUELANGEL BOBAN N Ot C34.11 MALIGNANT NEOPLASM OF UPPER LOBE, RIGHT 06/13/2017 MIGUELANGEL, BOBAN N Ot F17.210 NICOTINE DEPENDENCE, CIGARETTES, UNCOMPL 06/13/2017 VALENTIN MEANS Ot G40.909 EPILEPSY, UNSP, NOT INTRACTABLE, WITHOUT 06/13/2017 VALENTIN MEANS Ot H53.2 DIPLOPIA 06/13/2017 VALENTIN MEANS Ot I25.10 ATHSCL HEART DISEASE OF [place] CORONARY 06/13/2017 VALENTIN MEANS Ot I25.2 OLD MYOCARDIAL INFARCTION 06/13/2017 VALENTIN MEANS Ot Z79.899 OTHER LONGTERM (CURRENT) DRUG THERAPY 06/14/2017 GARO QUEZADA MD, Ot C34. 11 MALIGNANT NEOPLASM OF UPPER LOBE, RIGHT 06/14/2017 GARO QUEZADA MD, Ot F17.210 NICOTINE DEPENDENCE, CIGARETTES, UNCOMPL 06/14/2017 GARO QUEZADA MD, Ot G40.909 EPILEPSY, UNSP, NOT INTRACTABLE, WITHOUT 06/14/2017 GARO QUEZADA MD, Ot H53. 2 DIPLOPIA 06/14/2017 GARO QUEZADA MD, Ot I25. 10 ATHSCL HEART DISEASE OF [place] CORONARY 06/14/2017 GARO QUEZADA MD, Ot I25. 2 OLD MYOCARDIAL INFARCTION 06/14/2017 GARO QUEZADA MD, Ot Z51. 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 10 ATHSCL HEART DISEASE OF [place] CORONARY 07/24/2017 GARO QUEZADA MD Ot I25. 2 OLD MYOCARDIAL INFARCTION 07/24/2017 GARO QUEZADA MD Ot Z51. 11 ENCOUNTER FOR ANTINEOPLASTIC CHEMOTHERAP 07/24/2017 GARO QUEZADA MD Ot Z79.899 OTHER LONGTERM (CURRENT) DRUG THERAPY 08/08/2017 GARO QUEZADA MD Ot C34. 11 MALIGNANT NEOPLASM OF UPPER LOBE, RIGHT 08/08/2017 GARO QUEZADA MD Ot F17.210 NICOTINE DEPENDENCE, CIGARETTES, UNCOMPL 08/08/2017 GARO QUEZADA MD Ot G40.909 EPILEPSY, UNSP, NOT INTRACTABLE, WITHOUT 08/08/2017 GARO QUEZADA MD Ot H53. 2 DIPLOPIA 08/08/2017 GARO QUEZADA MD Ot I25. 10 ATHSCL HEART DISEASE OF [place] CORONARY 08/08/2017 GARO QUEZADA MD Ot I25. 2 OLD MYOCARDIAL INFARCTION 08/08/2017 GARO QUEZADA MD Ot Z51. 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 08/10/2017 JIMY ROBERTSON MD Ot C34.11 MALIGNANT NEOPLASM OF UPPER LOBE, RIGHT 08/10/2017 JIMY ROBERTSON MD Ot F17.210 NICOTINE DEPENDENCE, CIGARETTES, UNCOMPL 08/10/2017 JIMY ROBERTSON MD Ot G40.909 EPILEPSY, UNSP, NOT INTRACTABLE, WITHOUT 08/10/2017 JIMY ROBERTSON MD Ot I25.10 ATHSCL HEART DISEASE OF [place] CORONARY 08/10/2017 JIMY ROBERTSON MD Ot I25.2 OLD MYOCARDIAL INFARCTION 08/10/2017 JIMY ROBERTSON MD Ot Z51.11 ENCOUNTER FOR ANTINEOPLASTIC CHEMOTHERAP 08/10/2017 JIMY ROBERTSON MD Ot Z79.899 OTHER LONGTERM (CURRENT) DRUG THERAPY 09/06/2017 JIMY ROBERTSON MD Ot C34.11 MALIGNANT NEOPLASM OF UPPER LOBE, RIGHT 09/06/2017 AILYN ADKINS, JIMY Ot F17.210 NICOTINE DEPENDENCE, CIGARETTES, UNCOMPL 09/06/2017 JIMY ROBERTSON MD Ot G40.909 EPILEPSY, UNSP, NOT INTRACTABLE, WITHOUT 09/06/2017 JIMY ROBERTSON MD Ot I25.10 ATHSCL HEART DISEASE OF [place] CORONARY 09/06/2017 JIMY ROBERTSON MD Ot I25.2 OLD MYOCARDIAL INFARCTION 09/06/2017 JIMY ROBERTSON MD Ot Z51.11 ENCOUNTER FOR ANTINEOPLASTIC CHEMOTHERAP 09/06/2017 JIMY ROBERTSON MD Ot Z79.899 OTHER LONGTERM (CURRENT) DRUG THERAPY 09/21/2017 GARO QUEZADA MD Ot C34. 11 MALIGNANT NEOPLASM OF UPPER LOBE, RIGHT 09/21/2017 GARO QUEZADA MD Ot F17.210 NICOTINE DEPENDENCE, CIGARETTES, UNCOMPL 09/21/2017 GARO QUEZADA MD Ot G40.909 EPILEPSY, UNSP, NOT INTRACTABLE, WITHOUT 09/21/2017 GARO QUEZADA MD Ot I25. 10 ATHSCL HEART DISEASE OF [place] CORONARY 09/21/2017 GARO QUEZADA MD Ot I25. 2 OLD MYOCARDIAL INFARCTION 09/21/2017 GARO QUEZADA MD Ot Z51. 11 ENCOUNTER FOR ANTINEOPLASTIC CHEMOTHERAP 09/21/2017 GARO QUEZADA MD Ot Z79.899 OTHER LONGTERM (CURRENT) DRUG THERAPY 10/30/2017 GARO QUEZADA MD Ot C34. 11 MALIGNANT NEOPLASM OF UPPER LOBE, RIGHT 10/30/2017 GARO QUEZADA MD Ot F17.210 NICOTINE DEPENDENCE, CIGARETTES, UNCOMPL 10/30/2017 GARO QUEZADA MD Ot G40.909 EPILEPSY, UNSP, NOT INTRACTABLE, WITHOUT 10/30/2017 GARO QUEZADA MD Ot I25. 10 ATHSCL HEART DISEASE OF [place] CORONARY 10/30/2017 GARO QUEZADA MD Ot I25. 2 OLD MYOCARDIAL INFARCTION 10/30/2017 GARO QUEZADA MD Ot Z51. 11 ENCOUNTER FOR ANTINEOPLASTIC CHEMOTHERAP 10/30/2017 GARO QUEZADA MD Ot Z79.899 OTHER LONGTERM (CURRENT) DRUG THERAPY 11/28/2017 GARO QUEZADA MD Ot C34. 11 MALIGNANT NEOPLASM OF UPPER LOBE, RIGHT 11/28/2017 GARO QUEZADA MD Ot F17.210 NICOTINE DEPENDENCE, CIGARETTES, UNCOMPL 11/28/2017 GARO QUEZADA MD, Ot G40.909 EPILEPSY, UNSP, NOT INTRACTABLE, WITHOUT 11/28/2017 GARO QUEZADA MD Ot I25. 10 ATHSCL HEART DISEASE OF [place] CORONARY 11/28/2017 GARO QUEZADA MD Ot I25. 2 OLD MYOCARDIAL INFARCTION 11/28/2017 GARO QUEZADA MD, Ot Z51. 11 ENCOUNTER FOR ANTINEOPLASTIC CHEMOTHERAP 11/28/2017 GARO QUEZADA MD Ot Z79.899 OTHER LONGTERM (CURRENT) DRUG THERAPY 12/05/2017 GARO QUEZADA MD, [...] Ot I25. 10 ATHSCL HEART DISEASE OF [place] CORONARY 12/05/2017 GARO QUEZADA MD Ot I25. 2 OLD MYOCARDIAL INFARCTION 12/05/2017 GARO QUEZADA MD Ot Z51. 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 10 ATHSCL HEART DISEASE OF [place] CORONARY 12/06/2017 GARO QUEZADA MD Ot I25. 2 OLD MYOCARDIAL INFARCTION 12/06/2017 GARO QUEZADA MD Ot Z51. 11 ENCOUNTER FOR ANTINEOPLASTIC CHEMOTHERAP 12/06/2017 GARO QUEZADA MD Ot Z79.899 OTHER COLOR WORKER (CURRENT) DRUG THERAPY 12/06/2017 GARO QUEZADA MD Ot Z93. 3 COLOSTOMY STATUS 12/25/2017 GARO QUEZADA MD Ot C34. 11 MALIGNANT NEOPLASM OF UPPER LOBE, RIGHT 12/25/2017 GARO QUEZADA MD Ot F17.210 NICOTINE DEPENDENCE, CIGARETTES, UNCOMPL 12/25/2017 GARO QUEZADA MD Ot G40.909 EPILEPSY, UNSP, NOT INTRACTABLE, WITHOUT 12/25/2017 GARO QUEZADA MD Ot I25. 10 ATHSCL HEART DISEASE OF [place] CORONARY 12/25/2017 GARO QUEZADA MD Ot I25. 2 OLD MYOCARDIAL INFARCTION 12/25/2017 GARO QUEZADA MD Ot Z51. 11 ENCOUNTER FOR ANTINEOPLASTIC CHEMOTHERAP 12/25/2017 GARO QUEZADA MD Ot Z79.899 OTHER LONGTERM (CURRENT) DRUG THERAPY 01/17/2018 GARO QUEZADA MD Ot C34. 11 MALIGNANT NEOPLASM OF UPPER LOBE, RIGHT 01/17/2018 GARO QUEZADA MD Ot F17.210 NICOTINE DEPENDENCE, CIGARETTES, UNCOMPL 01/17/2018 GARO QUEZADA MD Ot G40.909 EPILEPSY, UNSP, NOT INTRACTABLE, WITHOUT 01/17/2018 GARO QUEZADA MD Ot I25. 10 ATHSCL HEART DISEASE OF [place] CORONARY 01/17/2018 GARO QUEZADA MD Ot I25. 2 OLD MYOCARDIAL INFARCTION 01/17/2018 GARO QUEZADA MD Ot Z51. 11 ENCOUNTER FOR ANTINEOPLASTIC CHEMOTHERAP 01/17/2018 GARO QUEZADA MD Ot Z79.899 OTHER LONGTERM (CURRENT) DRUG THERAPY 01/22/2018 GARO QUEZADA MD Ot C34. 11 MALIGNANT NEOPLASM OF UPPER LOBE, RIGHT 01/22/2018 GARO QUEZADA MD Ot F17.210 NICOTINE DEPENDENCE, CIGARETTES, UNCOMPL 01/22/2018 GAOR QUEZADA MD Ot G40.909 EPILEPSY, UNSP, NOT INTRACTABLE, WITHOUT 01/22/2018 GARO QUEZADA MD Ot I25. 10 ATHSCL HEART DISEASE OF [place] CORONARY 01/22/2018 GARO QUEZADA MD Ot I25. 2 OLD MYOCARDIAL INFARCTION 01/22/2018 GARO QUEZADA MD Ot Z51. 11 ENCOUNTER FOR ANTINEOPLASTIC CHEMOTHERAP 01/22/2018 GARO QUEZADA MD Ot Z79.899 OTHER COLOR WORKER (CURRENT) DRUG THERAPY 01/22/2018 MIGUELANGEL, BOBAN N Ot C34.11 MALIGNANT NEOPLASM OF UPPER LOBE, RIGHT 01/22/2018 MIGUELANGEL, BOBAN N Ot F17.210 NICOTINE DEPENDENCE, CIGARETTES, UNCOMPL 01/22/2018 MIGUELANGEL, BOBAN N Ot G40.909 EPILEPSY, UNSP, NOT INTRACTABLE, WITHOUT 01/22/2018 MIGUELANGEL, BOBAN N Ot I25.10 ATHSCL HEART DISEASE OF [place] CORONARY 01/22/2018 MIGUELANGEL, BOBAN N Ot I25.2 OLD MYOCARDIAL INFARCTION 01/22/2018 MIGUELANGEL, BOBAN N Ot Z51.11 ENCOUNTER FOR ANTINEOPLASTIC CHEMOTHERAP 01/22/2018 MIGUELANGEL, BOBAN N Ot Z79.899 OTHER COLOR WORKER (CURRENT) DRUG THERAPY 01/23/2018 MIGUELANGEL, BOBAN N Ot C34.11 MALIGNANT NEOPLASM OF UPPER LOBE, RIGHT 01/23/2018 MIGUELANGEL, BOBAN N Ot F17.210 NICOTINE DEPENDENCE, CIGARETTES, UNCOMPL 01/23/2018 MIGUELANGEL, BOBAN N Ot G40.909 EPILEPSY, UNSP, NOT INTRACTABLE, WITHOUT 01/23/2018 MIGUELANGEL, BOBAN N Ot I25.10 ATHSCL HEART DISEASE OF [place] CORONARY 01/23/2018 MIGUELANGEL, BOBAN N Ot I25.2 OLD MYOCARDIAL INFARCTION 01/23/2018 MIGUELANGEL, BOBAN N Ot Z51.11 ENCOUNTER FOR ANTINEOPLASTIC CHEMOTHERAP 01/23/2018 MIGUELANGEL, BOBAN N Ot Z79.899 OTHER LONGTERM (CURRENT) DRUG THERAPY 02/20/2018 MIGUELANGEL, BOBAN N Ot C34.11 MALIGNANT NEOPLASM OF UPPER LOBE, RIGHT 02/20/2018 MIGUELANGEL, BOBAN N Ot F17.210 NICOTINE DEPENDENCE, CIGARETTES, UNCOMPL 02/20/2018 MIGUELANGEL, BOBAN N Ot G40.909 EPILEPSY, UNSP, NOT INTRACTABLE, WITHOUT 02/20/2018 MIGUELANGEL, BOBAN N Ot I25.10 ATHSCL HEART DISEASE OF [place] CORONARY 02/20/2018 MIGUELANGEL, BOBAN N Ot I25.2 OLD MYOCARDIAL INFARCTION 02/20/2018 MIGUELANGEL, BOBAN N Ot Z51.11 ENCOUNTER FOR ANTINEOPLASTIC CHEMOTHERAP 02/20/2018 MIGUELANGEL, BOBAN N Ot Z79.899 OTHER COLOR WORKER (CURRENT) DRUG THERAPY 02/20/2018 MIGUELANGEL, BOBAN N Ot C34.11 MALIGNANT NEOPLASM OF UPPER LOBE, RIGHT 02/20/2018 MIGUELANGEL, BOBAN N Ot F17.210 NICOTINE DEPENDENCE, CIGARETTES, UNCOMPL 02/20/2018 MIGUELANGEL, BOBAN N Ot G40.909 EPILEPSY, UNSP, NOT INTRACTABLE, WITHOUT 02/20/2018 MIGUELANGEL, BOBAN N Ot I25.10 ATHSCL HEART DISEASE OF [place] CORONARY 02/20/2018 MIGUELANGEL, BOBAN N Ot I25.2 OLD MYOCARDIAL INFARCTION 02/20/2018 MIGUELANGEL, BOBAN N Ot Z51.11 ENCOUNTER FOR ANTINEOPLASTIC CHEMOTHERAP 02/20/2018 MIGUELANGEL, BOBAN N Ot Z79.899 OTHER LONGTERM (CURRENT) DRUG THERAPY 02/25/2018 MIGUELANGEL, BOBAN N Ot C34.11 MALIGNANT NEOPLASM OF UPPER LOBE, RIGHT 02/25/2018 MIGUELANGEL, BOBAN N Ot F17.210 NICOTINE DEPENDENCE, CIGARETTES, UNCOMPL 02/25/2018 MIGUELANGEL, BOBAN N Ot G40.909 EPILEPSY, UNSP, NOT INTRACTABLE, WITHOUT 02/25/2018 MIGUELANGEL, BOBAN N Ot I25.10 ATHSCL HEART DISEASE OF [place] CORONARY 02/25/2018 MIGUELANGEL, BOBAN N Ot I25.2 OLD MYOCARDIAL INFARCTION 02/25/2018 MIGUELANGEL, BOBAN N Ot Z51.11 ENCOUNTER FOR ANTINEOPLASTIC CHEMOTHERAP 02/25/2018 MIGUELANGEL, BOBAN N Ot Z79.899 OTHER LONGTERM (CURRENT) DRUG THERAPY 03/27/2018 MIGUELANGEL, BOBAN N Ot C34.11 MALIGNANT NEOPLASM OF UPPER LOBE, RIGHT 03/27/2018 MIGUELANGEL, BOBAN N Ot F17.210 NICOTINE DEPENDENCE, CIGARETTES, UNCOMPL 03/27/2018 MIGUELANGEL, BOBAN N Ot G40.909 EPILEPSY, UNSP, NOT INTRACTABLE, WITHOUT 03/27/2018 VALENTIN MEANS Ot I25.10 ATHSCL HEART DISEASE OF [place] CORONARY 03/27/2018 VALENTIN MEANS Ot I25.2 OLD MYOCARDIAL INFARCTION 03/27/2018 VALENTIN MEANS Ot Z51.11 ENCOUNTER FOR ANTINEOPLASTIC CHEMOTHERAP 03/27/2018 VALENTIN MEANS Ot Z79.899 OTHER LONGTERM (CURRENT) DRUG THERAPY 04/04/2018 Ot C34.11 MAL [...] Ot I25. 10 ATHSCL HEART DISEASE OF [place] CORONARY 04/23/2018 GARO QUEZADA MD Ot I25. 2 OLD MYOCARDIAL INFARCTION 04/23/2018 GARO QUEZADA MD Ot Z79. 82 LONGTERM (CURRENT) USE OF ASPIRIN 04/23/2018 GARO QUEZADA MD Ot Z79.899 OTHER LONGTERM (CURRENT) DRUG THERAPY 04/23/2018 GARO QUEZADA MD [...] Ot I25. 10 ATHSCL HEART DISEASE OF [place] CORONARY 04/26/2018 GARO QUEZADA MD Ot I25. 2 OLD MYOCARDIAL INFARCTION 04/26/2018 GARO QUEZADA MD Ot Z79. 82 LONGTERM (CURRENT) USE OF ASPIRIN 04/26/2018 GARO QUEZADA MD Ot Z79.899 OTHER LONGTERM (CURRENT) DRUG THERAPY 04/26/2018 GARO QUEZADA MD, [...] Ot I25. 10 ATHSCL HEART DISEASE OF [place] CORONARY 05/21/2018 GARO QUEZADA MD Ot I25. 2 OLD MYOCARDIAL INFARCTION 05/21/2018 GARO QUEZADA MD Ot Z51. 11 ENCOUNTER FOR ANTINEOPLASTIC CHEMOTHERAP 05/21/2018 GARO QUEZADA MD Ot Z79. 82 COLOR WORKER (CURRENT) USE OF ASPIRIN 05/21/2018 GARO QUEZADA MD Ot Z79.899 OTHER LONGTERM (CURRENT) DRUG THERAPY 05/21/2018 GARO QUEZADA MD [...] N Ot I25.10 ATHSCL HEART DISEASE OF [place] CORONARY 05/21/2018 MIGUELANGEL BOBAN N Ot I25.2 OLD MYOCARDIAL INFARCTION 05/21/2018 MIGUELANGEL BOBAN N Ot Z79.82 LONGTERM (CURRENT) USE OF ASPIRIN 05/21/2018 MIGUELANGEL, BOBAN N Ot Z79.899 OTHER LONGTERM (CURRENT) DRUG THERAPY 05/21/2018 MIGUELANGEL, BOBAN N [...] N Ot I25.10 ATHSCL HEART DISEASE OF [place] CORONARY 05/22/2018 MIGUELANGEL BOBAN N Ot I25.2 OLD MYOCARDIAL INFARCTION 05/22/2018 MIGUELANGEL BOBAN N Ot Z79.82 LONGTERM (CURRENT) USE OF ASPIRIN 05/22/2018 MIGUELANGEL, BOBAN N Ot Z79.899 OTHER COLOR WORKER (CURRENT) DRUG THERAPY 05/22/2018 MIGUELANGEL BOBAN N [...] MEANS Ot I25.10 ATHSCL HEART DISEASE OF [place] CORONARY 06/06/2018 VALENTIN MEANS Ot I25.2 OLD MYOCARDIAL INFARCTION 06/06/2018 VALENTIN MEANS Ot Z51.11 ENCOUNTER FOR ANTINEOPLASTIC CHEMOTHERAP 06/06/2018 VALENTIN MEANS Ot Z79.82 COLOR WORKER (CURRENT) USE OF ASPIRIN 06/06/2018 VALENTIN MEANS Ot Z79.899 OTHER LONGTERM (CURRENT) DRUG THERAPY 06/06/2018 VALENTIN MEANS Ot Z93.3 COLOSTOMY STATUS 06/15/2018 ERMIAS ROBLESP Ot C34.11 MALIGNANT NEOPLASM OF UPPER LOBE, RIGHT 06/15/2018 ERMIAS ROBLES [employer]ILDER Ot C44.702 UNSP MALIGNANT NEOPLASM SKIN/ RIGHT LOWE 06/15/2018 ERMIAS ROBLES [employer] BUILDER Ot C79.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 06/15/2018 ERMIAS ROBLESP Ot 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 10 ATHSCL HEART DISEASE OF [place] CORONARY 06/19/2018 GARO QUEZADA MD, Ot I25. 2 OLD MYOCARDIAL INFARCTION 06/19/2018 GARO QUEZADA MD, Ot Z51. 11 ENCOUNTER FOR ANTINEOPLASTIC CHEMOTHERAP 06/19/2018 GARO QUEZADA MD, Ot Z79. 82 COLOR WORKER (CURRENT) USE OF ASPIRIN 06/19/2018 GARO QUEZADA MD, Ot Z79.899 OTHER LONGTERM (CURRENT) DRUG THERAPY 06/19/2018 GARO QUEZADA MD, [...] Ot I25. 10 ATHSCL HEART DISEASE OF [place] CORONARY 07/13/2018 GARO QUEZADA MD, Ot I25. 2 OLD MYOCARDIAL INFARCTION 07/13/2018 GARO QUEZADA MD, Ot Z51. 11 ENCOUNTER FOR ANTINEOPLASTIC CHEMOTHERAP 07/13/2018 GARO QUEZADA MD Ot Z79. 82 LONGTERM (CURRENT) USE OF ASPIRIN 07/13/2018 GARO QUEZADA MD Ot Z79.899 OTHER COLOR WORKER (CURRENT) DRUG THERAPY 07/13/2018 GARO QUEZADA MD [...] Ot I25. 10 ATHSCL HEART DISEASE OF [place] CORONARY 07/17/2018 GARO QUEZADA MD Ot I25. 2 OLD MYOCARDIAL INFARCTION 07/17/2018 GARO QUEZADA MD Ot Z51. 11 ENCOUNTER FOR ANTINEOPLASTIC CHEMOTHERAP 07/17/2018 GARO QUEZADA MD Ot Z79. 82 LONGTERM (CURRENT) USE OF ASPIRIN 07/17/2018 GARO QUEZADA MD Ot Z79.899 OTHER COLOR WORKER (CURRENT) DRUG THERAPY 07/17/2018 GARO QUEZADA MD [...] Ot I25. 10 ATHSCL HEART DISEASE OF [place] CORONARY 07/27/2018 GARO QUEZADA MD, Ot I25. 2 OLD MYOCARDIAL INFARCTION 07/27/2018 GARO QUEZADA MD, Ot Z51. 11 ENCOUNTER FOR ANTINEOPLASTIC CHEMOTHERAP 07/27/2018 GARO QUEZADA MD, Ot Z79. 82 LONGTERM (CURRENT) USE OF ASPIRIN 07/27/2018 GARO QUEZADA MD, Ot Z79.899 OTHER LONGTERM (CURRENT) DRUG THERAPY 07/27/2018 GARO QUEZADA MD, [...] Ot I25. 10 ATHSCL HEART DISEASE OF [place] CORONARY 08/14/2018 GARO QUEZADA MD Ot I25. 2 OLD MYOCARDIAL INFARCTION 08/14/2018 GARO QUEZADA MD, Ot Z51. 11 ENCOUNTER FOR ANTINEOPLASTIC CHEMOTHERAP 08/14/2018 GARO QUEZADA MD, Ot Z79. 82 COLOR WORKER (CURRENT) USE OF ASPIRIN 08/14/2018 GARO QUEZADA MD, Ot Z79.899 OTHER LONGTERM (CURRENT) DRUG THERAPY 08/14/2018 GARO QUEZADA MD [...] Ot I25. 10 ATHSCL HEART DISEASE OF [place] CORONARY 09/11/2018 GARO QUEZADA MD Ot I25. 2 OLD MYOCARDIAL INFARCTION 09/11/2018 GARO QUEZADA MD Ot Z51. 11 ENCOUNTER FOR ANTINEOPLASTIC CHEMOTHERAP 09/11/2018 GARO QUEZADA MD, Ot Z79. 82 COLOR WORKER (CURRENT) USE OF ASPIRIN 09/11/2018 GARO QUEZADA MD, Ot Z79.899 OTHER LONGTERM (CURRENT) DRUG THERAPY 09/11/2018 GARO QUEZADA MD, [...] Ot I25. 10 ATHSCL HEART DISEASE OF [place] CORONARY 09/17/2018 GARO QUEZADA MD Ot I25. 2 OLD MYOCARDIAL INFARCTION 09/17/2018 GARO QUEZADA MD Ot Z51. 11 ENCOUNTER FOR ANTINEOPLASTIC CHEMOTHERAP 09/17/2018 GARO QUEZADA MD Ot Z79. 82 COLOR WORKER (CURRENT) USE OF ASPIRIN 09/17/2018 GARO QUEZADA MD Ot Z79.899 OTHER COLOR WORKER (CURRENT) DRUG THERAPY 09/17/2018 GARO QUEZADA MD [...] Ot I25. 10 ATHSCL HEART DISEASE OF [place] CORONARY 09/18/2018 GARO QUEZADA MD, Ot I25. 2 OLD MYOCARDIAL INFARCTION 09/18/2018 GARO QUEZADA MD, Ot Z51. 11 ENCOUNTER FOR ANTINEOPLASTIC CHEMOTHERAP 09/18/2018 GARO QUEZADA MD, Ot Z79. 82 LONGTERM (CURRENT) USE OF ASPIRIN 09/18/2018 GARO QUEZADA MD, Ot Z79.899 OTHER LONGTERM (CURRENT) DRUG THERAPY 09/18/2018 GARO QUEZADA MD [...] Ot I25. 10 ATHSCL HEART DISEASE OF [place] CORONARY 09/18/2018 GARO QUEZADA MD, Ot I25. 2 OLD MYOCARDIAL INFARCTION 09/18/2018 GARO QUEZADA MD, Ot Z51. 11 ENCOUNTER FOR ANTINEOPLASTIC CHEMOTHERAP 09/18/2018 GARO QUEZADA MD, Ot Z79. 82 LONGTERM (CURRENT) USE OF ASPIRIN 09/18/2018 GARO QUEZADA MD, Ot Z79.899 OTHER LONGTERM (CURRENT) DRUG THERAPY 09/18/2018 GARO QUEZADA MD [...] Ot I25. 10 ATHSCL HEART DISEASE OF [place] CORONARY 10/09/2018 GARO QUEZADA MD, Ot I25. 2 OLD MYOCARDIAL INFARCTION 10/09/2018 GARO QUEZADA MD Ot Z51. 11 ENCOUNTER FOR ANTINEOPLASTIC CHEMOTHERAP 10/09/2018 GARO QUZEADA MD Ot Z79. 82 COLOR WORKER (CURRENT) USE OF ASPIRIN 10/09/2018 GARO QUEZADA MD, Ot Z79.899 OTHER LONGTERM (CURRENT) DRUG THERAPY 10/09/2018 GARO QUEZADA MD [...] Ot I25. 10 ATHSCL HEART DISEASE OF [place] CORONARY 11/13/2018 GARO QUEZADA MD Ot I25. 2 OLD MYOCARDIAL INFARCTION 11/13/2018 GARO QUEZADA MD, Ot Z51. 11 ENCOUNTER FOR ANTINEOPLASTIC CHEMOTHERAP 11/13/2018 GARO QUEZADA MD, Ot Z79. 82 LONGTERM (CURRENT) USE OF ASPIRIN 11/13/2018 GARO QUEZADA MD, Ot Z79.899 OTHER COLOR WORKER (CURRENT) DRUG THERAPY 11/13/2018 GARO QUEZADA MD, [...] Ot I25. 10 ATHSCL HEART DISEASE OF [place] CORONARY 11/23/2018 GARO QUEZADA MD, Ot I25. 2 OLD MYOCARDIAL INFARCTION 11/23/2018 GARO QUEZADA MD, Ot Z51. 11 ENCOUNTER FOR ANTINEOPLASTIC CHEMOTHERAP 11/23/2018 GARO QUEZADA MD, Ot Z79. 82 LONGTERM (CURRENT) USE OF ASPIRIN 11/23/2018 GARO QUEZADA MD, Ot Z79.899 OTHER COLOR WORKER (CURRENT) DRUG THERAPY 11/23/2018 GARO QUEZADA MD, [...] Ot I25. 10 ATHSCL HEART DISEASE OF [place] CORONARY 01/01/2019 GARO QUEZADA MD, Ot I25. 2 OLD MYOCARDIAL INFARCTION 01/01/2019 GARO QUEZADA MD, Ot Z51. 11 ENCOUNTER FOR ANTINEOPLASTIC CHEMOTHERAP 01/01/2019 GARO QUEZADA MD, Ot Z79. 82 COLOR WORKER (CURRENT) USE OF ASPIRIN 01/01/2019 GARO QUEZADA MD, Ot Z79.899 OTHER LONGTERM (CURRENT) DRUG THERAPY 01/01/2019 GARO QUEZADA MD, [...] Ot I25. 10 ATHSCL HEART DISEASE OF [place] CORONARY 01/07/2019 GARO QUEZADA MD Ot I25. 2 OLD MYOCARDIAL INFARCTION 01/07/2019 GARO QUEZADA MD, Ot Z51. 11 ENCOUNTER FOR ANTINEOPLASTIC CHEMOTHERAP 01/07/2019 GARO QUEZADA MD, Ot Z79. 82 LONGTERM (CURRENT) USE OF ASPIRIN 01/07/2019 GARO QUEZADA MD, Ot Z79.899 OTHER COLOR WORKER (CURRENT) DRUG THERAPY 01/07/2019 GARO QUEZADA MD, [...] Ot I25. 10 ATHSCL HEART DISEASE OF [place] CORONARY 01/10/2019 GARO QUEZADA MD, Ot I25. 2 OLD MYOCARDIAL INFARCTION 01/10/2019 GARO QUEZADA MD, Ot Z51. 11 ENCOUNTER FOR ANTINEOPLASTIC CHEMOTHERAP 01/10/2019 GARO QUEZADA MD Ot Z79. 82 COLOR WORKER (CURRENT) USE OF ASPIRIN 01/10/2019 GARO QUEZADA MD Ot Z79.899 OTHER COLOR WORKER (CURRENT) DRUG THERAPY 01/10/2019 GARO QUEZADA MD Ot Z93. 3 COLOSTOMY STATUS 01/15/2019 VALENTIN MEANS Ot C34.11 MALIGNANT NEOPLASM OF UPPER LOBE, RIGHT 01/15/2019 VALENTIN MEANS Ot F17.210 NICOTINE DEPENDENCE, CIGARETTES, UNCOMPL 01/15/2019 VALENTIN MEANS Ot G40.909 EPILEPSY, UNSP, NOT INTRACTABLE, WITHOUT 01/15/2019 VALENTIN MEANS Ot I25.10 ATHSCL HEART DISEASE OF [place] CORONARY 01/15/2019 VALENTIN MEANS Ot I25.2 OLD MYOCARDIAL INFARCTION 01/15/2019 VALENTIN MEANS Ot I73.89 OTHER SPECIFIED PERIPHERAL VASCULAR DISE 01/15/2019 VALENTIN MEANS Ot Z51.11 ENCOUNTER FOR ANTINEOPLASTIC CHEMOTHERAP 01/15/2019 VAELNTIN MEANS Ot Z79.899 OTHER COLOR WORKER (CURRENT) DRUG THERAPY 01/15/2019 GARO QUEZADA MD, [...] Ot I25. 10 ATHSCL HEART DISEASE OF [place] CORONARY 01/15/2019 GARO QUEZADA MD, Ot I25. 2 OLD MYOCARDIAL INFARCTION 01/15/2019 GARO QUEZADA MD Ot Z51. 11 ENCOUNTER FOR ANTINEOPLASTIC CHEMOTHERAP 01/15/2019 GARO QUEZADA MD Ot Z79. 82 LONGTERM (CURRENT) USE OF ASPIRIN 01/15/2019 GARO QUEZADA MD, Ot Z79.899 OTHER LONGTERM (CURRENT) DRUG THERAPY 01/15/2019 GARO QUEZADA MD [...] NEOPLASM RELATED PAIN (ACUTE) (CHRONIC) 01/15/2019 SERAFIN SINEGR MD Ot K59.0 0 CONSTIPATION, UNSPECIFIED 01/15/2019 [...] Ot R59.0 LOCALIZED ENLARGED LYMPH NODES 01/18/2019 SERAFIN SINGER MD Ot Z88.5 ALLERGY STATUS [...] Ot I25. 10 ATHSCL HEART DISEASE OF [place] CORONARY 02/14/2019 GARO QUEZADA MD, Ot I25. 2 OLD MYOCARDIAL INFARCTION 02/14/2019 GARO QUEZADA MD Ot Z51. 11 ENCOUNTER FOR ANTINEOPLASTIC CHEMOTHERAP 02/14/2019 GARO QUEZADA MD, Ot Z79. 82 COLOR WORKER (CURRENT) USE OF ASPIRIN 02/14/2019 GARO QUEZADA MD, Ot Z79.899 OTHER LONGTERM (CURRENT) DRUG THERAPY 02/14/2019 GARO QUEZADA MD, [...] Ot I25. 10 ATHSCL HEART DISEASE OF [place] CORONARY 04/29/2019 GARO QUEZADA MD, Ot I25. 2 OLD MYOCARDIAL INFARCTION 04/29/2019 GARO QUEZADA MD, Ot Z79. 82 LONGTERM (CURRENT) USE OF ASPIRIN 04/29/2019 GARO QUEZADA MD, Ot Z79.899 OTHER COLOR WORKER (CURRENT) DRUG THERAPY 04/29/2019 GARO QUEZADA MD, [...] Ot I25. 10 ATHSCL HEART DISEASE OF [place] CORONARY 04/30/2019 GARO QUEZADA MD, Ot I25. 2 OLD MYOCARDIAL INFARCTION 04/30/2019 GARO QUEZADA MD, Ot Z79. 82 COLOR WORKER (CURRENT) USE OF ASPIRIN 04/30/2019 GARO QUEZADA MD, Ot Z79.899 OTHER COLOR WORKER (CURRENT) DRUG THERAPY 04/30/2019 GARO QUEZADA MD, [...] Ot I25. 10 ATHSCL HEART DISEASE OF [place] CORONARY 04/30/2019 GARO QUEZADA MD Ot I25. 2 OLD MYOCARDIAL INFARCTION 04/30/2019 GARO QUEZADA MD, Ot Z79. 82 LONGTERM (CURRENT) USE OF ASPIRIN 04/30/2019 GARO QUEZADA MD Ot Z79.899 OTHER LONGTERM (CURRENT) DRUG THERAPY 04/30/2019 GARO QUEZADA MD, [...] Ot I25. 10 ATHSCL HEART DISEASE OF [place] CORONARY 05/05/2019 GARO QUEZADA MD, Ot I25. 2 OLD MYOCARDIAL INFARCTION 05/05/2019 GARO QUEZADA MD, Ot Z79. 82 COLOR WORKER (CURRENT) USE OF ASPIRIN 05/05/2019 GARO QUEZADA MD, Ot Z79.899 OTHER COLOR WORKER (CURRENT) DRUG THERAPY 05/05/2019 GARO QUEZADA MD, [...] MEANS Ot I25.10 ATHSCL HEART DISEASE OF [place] CORONARY 05/06/2019 VALENTIN MEANS Ot I25.2 OLD MYOCARDIAL INFARCTION 05/06/2019 VALENTIN MEANS Ot I73.89 OTHER SPECIFIED PERIPHERAL VASCULAR DISE 05/06/2019 VALENTIN MEANS Ot Z51.11 ENCOUNTER FOR ANTINEOPLASTIC CHEMOTHERAP 05/06/2019 VALENTIN MEANS Ot Z79.899 OTHER LONGTERM (CURRENT) DRUG THERAPY 05/06/2019 GARO QUEZADA MD [...] Ot I25. 10 ATHSCL HEART DISEASE OF [place] CORONARY 05/06/2019 GARO QUEZADA MD, Ot I25. 2 OLD MYOCARDIAL INFARCTION 05/06/2019 GARO QUEZADA MD Ot Z79. 82 COLOR WORKER (CURRENT) USE OF ASPIRIN 05/06/2019 GARO QUEZADA MD Ot Z79.899 OTHER COLOR WORKER (CURRENT) DRUG THERAPY 05/06/2019 GARO QUEZADA MD [...] Ot I25. 10 ATHSCL HEART DISEASE OF [place] CORONARY 05/16/2019 AGRO QUEZADA MD Ot I25. 2 OLD MYOCARDIAL INFARCTION 05/16/2019 GARO QUEZADA MD Ot Z79. 82 LONGTERM (CURRENT) USE OF ASPIRIN 05/16/2019 GARO QUEZADA MD Ot Z79.899 OTHER LONGTERM (CURRENT) DRUG THERAPY 05/16/2019 GARO QUEZADA MD [...] Ot I25. 10 ATHSCL HEART DISEASE OF [place] CORONARY 07/29/2019 GARO QUEZADA MD Ot I25. 2 OLD MYOCARDIAL INFARCTION 07/29/2019 GARO QUEZADA MD Ot Z79. 82 COLOR WORKER (CURRENT) USE OF ASPIRIN 07/29/2019 GARO QUEZADA MD Ot Z79.899 OTHER LONGTERM (CURRENT) DRUG THERAPY 07/29/2019 GARO QUEZADA MD [...] Ot I25. 10 ATHSCL HEART DISEASE OF [place] CORONARY 08/01/2019 GARO QUEZADA MD Ot I25. 2 OLD MYOCARDIAL INFARCTION 08/01/2019 GARO QUEZADA MD Ot Z79. 82 LONGTERM (CURRENT) USE OF ASPIRIN 08/01/2019 GARO QUEZADA MD, Ot Z79.899 OTHER COLOR WORKER (CURRENT) DRUG THERAPY 08/01/2019 GARO QUEZADA MD [...] Ot I25. 10 ATHSCL HEART DISEASE OF [place] CORONARY 08/27/2019 GARO QUEZADA MD, Ot I25. 2 OLD MYOCARDIAL INFARCTION 08/27/2019 GARO QUEZADA MD, Ot Z79. 82 COLOR WORKER (CURRENT) USE OF ASPIRIN 08/27/2019 GARO QUEZADA MD Ot Z79.899 OTHER LONGTERM (CURRENT) DRUG THERAPY 08/27/2019 GARO QUEZADA MD, [...] Ot I25. 10 ATHSCL HEART DISEASE OF [place] CORONARY 08/27/2019 GARO QUEZADA MD Ot I25. 2 OLD MYOCARDIAL INFARCTION 08/27/2019 GARO QUEZADA MD, Ot Z79. 82 LONGTERM (CURRENT) USE OF ASPIRIN 08/27/2019 GARO QUEZADA MD Ot Z79.899 OTHER COLOR WORKER (CURRENT) DRUG THERAPY 08/27/2019 GARO QUEZADA MD [...] Ot I25. 10 ATHSCL HEART DISEASE OF [place] CORONARY 08/30/2019 GARO QUEZADA MD Ot I25. 2 OLD MYOCARDIAL INFARCTION 08/30/2019 GARO QUEZADA MD Ot Z79. 82 COLOR WORKER (CURRENT) USE OF ASPIRIN 08/30/2019 GARO QUEZADA MD Ot Z79.899 OTHER LONGTERM (CURRENT) DRUG THERAPY 08/30/2019 GARO QUEZADA MD [...] CHURCH RHIANNON Ot E87.6 HYPOKALEMIA 09/04/2019 ISRA CHURCH RHIANNON Ot F17.21 0 NICOTINE DEPENDENCE, CIGARETTES, UNCOMPL 09/04/2019 ISRA CHURCH RHIANNON Ot F41.9 ANXIETY DISORDER, UNSPECIFIED 09/04/2019 ISRA CHURCH RHIANNON Ot G40.90 9 EPILEPSY, UNSP, NOT INTRACTABLE, WITHOUT 09/04/2019 DHALIWAL DO, RHIANNON Ot I25.10 ATHSCL HEART DISEASE OF [place] CORONARY 09/04/2019 DHALIWAL DO, RHIANNON Ot I25.2 [...] PRIMARY OSTEOARTHRITIS, RIGHT SHOULDER 09/04/2019 DHALIWAL DO, RHIANNON Ot M19.01 2 PRIMARY OSTEOARTHRITIS, LEFT SHOULDER 09/04/2019 DHALIWAL DO, RHIANNON Ot M19.04 1 PRIMARY OSTEOARTHRITIS, RIGHT HAND 09/04/2019 DHALIWAL DO, RHIANNON Ot M19.04 2 PRIMARY OSTEOARTHRITIS, LEFT HAND 09/04/2019 DHALIWAL DO, RHIANNON Ot R64 CACHEXIA 09/04/2019 DHALIWAL DO, HRIANNON Ot Z89.42 1 ACQUIRED ABSENCE OF OTHER [...] Ot I25. 10 ATHSCL HEART DISEASE OF [place] CORONARY 11/25/2019 GARO QUEZADA MD Ot I25. 2 OLD MYOCARDIAL INFARCTION 11/25/2019 GARO QUEZADA MD Ot Z79. 82 LONGTERM (CURRENT) USE OF ASPIRIN 11/25/2019 GARO QUEZADA MD Ot Z79.899 OTHER LONGTERM (CURRENT) DRUG THERAPY 11/25/2019 GARO QUEZADA MD [...] Ot I25. 10 ATHSCL HEART DISEASE OF [place] CORONARY 11/26/2019 GARO QUEZADA MD Ot I25. 2 OLD MYOCARDIAL INFARCTION 11/26/2019 GARO QUEZADA MD Ot Z79. 82 LONGTERM (CURRENT) USE OF ASPIRIN 11/26/2019 GARO QUEZADA MD Ot Z79.899 OTHER LONGTERM (CURRENT) DRUG THERAPY 11/26/2019 GARO QUEZADA MD [...] Ot I25. 10 ATHSCL HEART DISEASE OF [place] CORONARY 12/01/2019 GARO QUEZADA MD, Ot I25. 2 OLD MYOCARDIAL INFARCTION 12/01/2019 GARO QUEZADA MD, Ot Z79. 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 10 ATHSCL HEART DISEASE OF [place] CORONARY 12/09/2019 GARO QUEZADA MD Ot I25. 2 OLD MYOCARDIAL INFARCTION 12/09/2019 GARO QUEZADA MD, Ot Z79. 82 LONGTERM (CURRENT) USE OF ASPIRIN 12/09/2019 GARO QUEZADA MD, Ot Z79.899 OTHER COLOR WORKER (CURRENT) DRUG THERAPY 12/09/2019 GARO QUEZADA MD, [...] Ot I25. 10 ATHSCL HEART DISEASE OF [place] CORONARY 12/10/2019 GARO QUEZADA MD, Ot I25. 2 OLD MYOCARDIAL INFARCTION 12/10/2019 GARO QUEZADA MD, Ot Z79. 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 3 COLOSTOMY STATUS 12/13/2019 GARO QUEZADA MD, Ot C34. 11 MALIGNANT NEOPLASM OF UPPER LOBE, RIGHT 12/13/2019 GARO QUEZADA MD, Ot C79. 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 42 HYPOMAGNESEMIA 12/13/2019 GARO QUEZADA MD, Ot F17.210 NICOTINE DEPENDENCE, CIGARETTES, UNCOMPL 12/13/2019 GARO QUEZADA MD, Ot G40.909 EPILEPSY, UNSP, NOT INTRACTABLE, WITHOUT 12/13/2019 GARO QUEZADA MD, Ot I25. 10 ATHSCL HEART DISEASE OF [place] CORONARY 12/13/2019 GARO QUEZADA MD, Ot I25. 2 OLD MYOCARDIAL INFARCTION 12/13/2019 GARO QUEZADA MD, Ot Z79. 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 10 ATHSCL HEART DISEASE OF [place] CORONARY 01/02/2020 GARO QUEZADA MD, Ot I25. [...] 01/02/2020 GARO QUEZADA MD, Ot Z79. 82 LONGTERM (CURRENT) USE OF ASPIRIN 01/02/2020 GARO QUEZADA MD, Ot Z79.899 OTHER LONGTERM (CURRENT) DRUG THERAPY 01/02/2020 GRAO QUEZADA MD, Ot Z82. 0 FAMILY HISTORY OF EPILEPSY AND OTH DIS O 01/02/2020 GARO QUEZADA MD, Ot Z93. 3 COLOSTOMY STATUS 01/02/2020 GARO QUEZADA MD, Ot Z95. 1 PRESENCE OF AORTOCORONARY BYPASS GRAFT 01/02/2020 GARO QUEZADA MD Ot Z95. 5 PRESENCE OF CORONARY ANGIOPLASTY IMPLANT 03/06/2020 SERAFIN SINGER MD Ot D72.8 29 ELEVATED WHITE BLOOD CELL COUNT, UNSPECI 03/06/2020 SERAFIN SINGER MD, Ot E83.4 2 HYPOMAGNESEMIA 03/06/2020 SERAFIN SINGER MD, Ot F17.2 10 NICOTINE DEPENDENCE, CIGARETTES, UNCOMPL 03/06/2020 SERAFIN SINGER MD, Ot F41.9 ANXIETY DISORDER, UNSPECIFIED 03/06/2020 SERAFIN SINGER MD, Ot G40.9 09 EPILEPSY, UNSP, NOT INTRACTABLE, WITHOUT 03/06/2020 SERAFIN SINGER MD, Ot I25.2 OLD MYOCARDIAL INFARCTION 03/06/2020 SERAFIN SINGER MD, Ot K21.9 GASTRO-ESOPHAGEAL REFLUX DISEASE WITHOUT 03/06/2020 SERAFIN SINGER MD, Ot M54.6 PAIN IN THORACIC SPINE 03/06/2020 SERAFIN SINGER MD, Ot S00.81XA ABRASION OF OTHER PART OF HEAD, INITIAL 03/06/2020 SERAFIN SINGER MD, Ot S39.012A STRAIN OF MUSCLE, FASCIA AND TENDON OF L 03/06/2020 SERAFIN SINGER MD, Ot W01.0XXA FALL SAME LEV FROM SLIP/TRIP W/O STRIKE 03/06/2020 SERAFIN SINGER MD, Ot Y92.[address] IN APARTMENT PLACE 03/06/2020 SERAFIN SINGER MD, Ot Z79.5 2 LONGTERM (CURRENT) USE OF SYSTEMIC STER 03/06/2020 SERAFIN SINGER MD, Ot Z79.8 2 COLOR WORKER (CURRENT) USE OF ASPIRIN 03/06/2020 SERAFIN SINGER MD, Ot Z85.0 1 PERSONAL HISTORY OF MALIGNANT NEOPLASM O 03/06/2020 SERAFIN SINGER MD, Ot Z85.1 18 PERSONAL HISTORY OF MALIGNANT NEOPLASM O 03/06/2020 SERAFIN SINGER MD, Ot Z85.8 41 PERSONAL HISTORY OF MALIGNANT NEOPLASM O 03/06/2020 SERAFIN SINGER MD, Ot Z88.5 ALLERGY STATUS TO NARCOTIC AGENT STATUS 03/06/2020 SERAFIN SINGER MD, Ot Z88.8 ALLERGY STATUS TO OTH DRUG/MEDS/BIOL SUB 03/08/2020 SERAFIN SINGER MD, Ot D72.8 29 ELEVATED WHITE BLOOD CELL COUNT, UNSPECI 03/08/2020 SERAFIN SINGER MD, Ot E83.4 2 HYPOMAGNESEMIA 03/08/2020 SERAFIN SINGER MD, Ot F17.2 10 NICOTINE DEPENDENCE, CIGARETTES, UNCOMPL 03/08/2020 SERAFIN SINGER MD, Ot F41.9 ANXIETY DISORDER, UNSPECIFIED 03/08/2020 SERAFIN SINGER MD, Ot G40.9 09 EPILEPSY, UNSP, NOT INTRACTABLE, WITHOUT 03/08/2020 SERAFIN SINGER MD, Ot I25.2 OLD MYOCARDIAL INFARCTION 03/08/2020 SERAFIN SINGER MD, Ot K21.9 GASTRO-ESOPHAGEAL REFLUX DISEASE WITHOUT 03/08/2020 SERAFIN SINGER MD, Ot M54.6 PAIN IN THORACIC SPINE 03/08/2020 SERAFIN SINGER MD, Ot S00.81XA ABRASION OF OTHER PART OF HEAD, INITIAL 03/08/2020 SERAFIN SINGER MD, Ot S39.012A STRAIN OF MUSCLE, FASCIA AND TENDON OF L 03/08/2020 SERAFIN SINGER MD, Ot W01.0XXA FALL SAME LEV FROM SLIP/TRIP W/O STRIKE 03/08/2020 SERAFIN SINGER MD, Ot Y92.[address] APARTMENT PLACE 03/08/2020 SERAFIN SINGRE MD, Ot Z79.5 2 LONGTERM (CURRENT) USE OF SYSTEMIC STER 03/08/2020 SERAFIN SINGER MD, Ot Z79.8 2 LONGTERM (CURRENT) USE OF ASPIRIN 03/08/2020 SERAFIN SINGER MD, Ot Z85.0 1 PERSONAL HISTORY OF MALIGNANT NEOPLASM O 03/08/2020 SERAFIN SINGER MD, Ot Z85.1 18 PERSONAL HISTORY OF MALIGNANT NEOPLASM O 03/08/2020 SERAFIN SINGER MD, Ot Z85.8 41 PERSONAL HISTORY OF MALIGNANT NEOPLASM O 03/08/2020 SERAFIN SINGER MD, Ot Z88.5 ALLERGY STATUS TO NARCOTIC AGENT STATUS 03/08/2020 SERAFIN SINGER MD, Ot Z88.8 ALLERGY STATUS TO OTH DRUG/MEDS/BIOL SUB 03/09/2020 GARO QUEZADA MD, Ot C34. 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 89 OTHER SPECIFIED ANEMIAS 03/09/2020 GARO QUEZADA MD Ot E78. 00 PURE HYPERCHOLESTEROLEMIA, UNSPECIFIED 03/09/2020 GARO QUEZADA MD Ot E83. 42 HYPOMAGNESEMIA 03/09/2020 GARO QUEZADA MD, Ot F17.210 NICOTINE DEPENDENCE, CIGARETTES, UNCOMPL 03/09/2020 GARO QUEZADA MD Ot G40.909 EPILEPSY, UNSP, NOT INTRACTABLE, WITHOUT 03/09/2020 GARO QUEZADA MD, Ot I25. 10 ATHSCL HEART DISEASE OF [place] CORONARY 03/09/2020 GARO QUEZADA MD, Ot I25. 2 OLD MYOCARDIAL INFARCTION 03/09/2020 GARO QUEZADA MD, Ot I50. 9 HEART FAILURE, UNSPECIFIED 03/09/2020 GARO QUEZADA MD, Ot I63. 9 CEREBRAL INFARCTION, UNSPECIFIED 03/09/2020 GARO QUEZADA MD, Ot I73. 9 PERIPHERAL VASCULAR DISEASE, UNSPECIFIED 03/09/2020 GARO QUEZADA MD, Ot K56.609 UNSP INTESTNL OBST, UNSP TO PARTIAL V 03/09/2020 GARO QUEZADA MD Ot M19. 90 UNSPECIFIED OSTEOARTHRITIS, UNSPECIFIED 03/09/2020 GARO QUEZADA MD, Ot M97.01XA PERIPROSTH FRACTURE AROUND INTERNAL PROS 03/09/2020 GARO QUEZADA MD, Ot Z79. 82 LONGTERM (CURRENT) USE OF ASPIRIN 03/09/2020 GARO QUEZADA MD, Ot Z79.899 OTHER COLOR WORKER (CURRENT) DRUG THERAPY 03/09/2020 GARO QUEZADA MD, Ot Z82. 0 FAMILY HISTORY OF EPILEPSY AND OTH DIS O 03/09/2020 GARO QUEZADA MD Ot Z93. 3 COLOSTOMY STATUS 03/09/2020 GARO QUEZADA MD, Ot Z95. 1 PRESENCE OF AORTOCORONARY BYPASS GRAFT 03/09/2020 GARO QUEZADA MD, Ot Z95. 5 PRESENCE OF CORONARY ANGIOPLASTY IMPLANT 03/12/2020 GARO QUEZADA MD, Ot C34. 11 MALIGNANT NEOPLASM OF UPPER LOBE, RIGHT 03/12/2020 GARO QUEZADA MD Ot C79. 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 89 OTHER SPECIFIED ANEMIAS 03/12/2020 DAMIEN ADKINS, GARO Cerna E78. 00 PURE HYPERCHOLESTEROLEMIA, UNSPECIFIED 03/12/2020 DAMIEN ADKINS, GARO Cerna E83. 42 HYPOMAGNESEMIA 03/12/2020 GARO QUEZADA MD Ot F17.210 NICOTINE DEPENDENCE, CIGARETTES, UNCOMPL 03/12/2020 DAMIEN ADKINS, GARO Cerna G40.909 EPILEPSY, UNSP, NOT INTRACTABLE, WITHOUT 03/12/2020 GARO QUEZADA MD, Ot I25. 10 ATHSCL HEART DISEASE OF [place] CORONARY 03/12/2020 GARO QUEZADA MD, Ot I25. 2 OLD MYOCARDIAL INFARCTION 03/12/2020 GARO QUEZADA MD Ot I50. 9 HEART FAILURE, UNSPECIFIED 03/12/2020 GARO QUEZADA MD Ot I63. 9 CEREBRAL INFARCTION, UNSPECIFIED 03/12/2020 GARO QUEZADA MD, Ot I73. 9 PERIPHERAL VASCULAR DISEASE, UNSPECIFIED 03/12/2020 GARO QUEZADA MD Ot K56.609 UNSP INTESTNL OBST, UNSP TO PARTIAL V 03/12/2020 GARO QUEZADA MD, Ot M19. 90 UNSPECIFIED OSTEOARTHRITIS, UNSPECIFIED 03/12/2020 GARO QUEZADA MD, Ot M97.01XA PERIPROSTH FRACTURE AROUND INTERNAL PROS 03/12/2020 GARO QUEZADA MD Ot Z79. 82 LONGTERM (CURRENT) USE OF ASPIRIN 03/12/2020 GARO QUEZADA MD, Ot Z79.899 OTHER LONGTERM (CURRENT) DRUG THERAPY 03/12/2020 GARO QUEZADA MD, Ot Z82. 0 FAMILY HISTORY OF EPILEPSY AND OTH DIS O 03/12/2020 GARO QUEZADA MD, Ot Z93. 3 COLOSTOMY STATUS 03/12/2020 GARO QUEZADA MD, Ot Z95. 1 PRESENCE OF AORTOCORONARY BYPASS GRAFT 03/12/2020 GARO QUEZADA MD, Ot Z95. 5 PRESENCE OF CORONARY ANGIOPLASTY IMPLANT 03/18/2020 JIM OTT MD Ot C34.11 MALIGNANT NEOPLASM OF UPPER LOBE, RIGHT 03/18/2020 JIM OTT MD, Ot C79.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 03/18/2020 JIM OTT MD Ot C34.11 MALIGNANT NEOPLASM OF UPPER LOBE, RIGHT 03/18/2020 JIM OTT MD Ot C79.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 03/18/2020 JIM OTT MD Ot Z72.0 TOBACCO USE 03/18/2020 JIM OTT MD, Ot C34.11 MALIGNANT NEOPLASM OF UPPER LOBE, RIGHT 03/18/2020 JIM OTT MD Ot C79.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 03/18/2020 JIM OTT MD, Ot C34.11 MALIGNANT NEOPLASM OF UPPER LOBE, RIGHT 03/18/2020 JIM OTT MD, Ot C79.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 9 DISORDER OF BRAIN, UNSPECIFIED 03/18/2020 GARO QUEZADA MD Ot H53. 2 DIPLOPIA 03/18/2020 VALENTIN MEANS Ot C34.11 MALIGNANT NEOPLASM OF UPPER LOBE, RIGHT 03/18/2020 VALENTIN MEANS Ot F17.210 NICOTINE DEPENDENCE, CIGARETTES, UNCOMPL 03/18/2020 VALENTIN MEANS Ot G40.909 EPILEPSY, UNSP, NOT INTRACTABLE, WITHOUT 03/18/2020 VALENTIN MEANS Ot I25.10 ATHSCL HEART DISEASE OF [place] CORONARY 03/18/2020 VALENTIN MEANS Ot I25.2 OLD MYOCARDIAL INFARCTION 03/18/2020 VALENTIN MEANS Ot I73.89 OTHER SPECIFIED PERIPHERAL VASCULAR DISE 03/18/2020 VALENTIN MEANS Ot Z51.11 ENCOUNTER FOR ANTINEOPLASTIC CHEMOTHERAP 03/18/2020 VALENTIN MEANS Ot Z79.899 OTHER LONGTERM (CURRENT) DRUG THERAPY 03/18/2020 GARO QUEZADA MD, Ot C34. 11 MALIGNANT NEOPLASM OF UPPER LOBE, RIGHT 03/18/2020 GARO QUEZADA MD Ot R05 COUGH 03/18/2020 GARO QUEZADA MD Ot Z95.828 PRESENCE OF OTHER VASCULAR IMPLANTS AND 03/18/2020 Ot C34.11 MAL IGNANT NEOPLASM OF UPPER LOBE, RIGHT 03/18/2020 Ot C79.31 SEC ONDARY MALIGNANT NEOPLASM OF BRAIN 03/18/2020 Ot I67.82 CER EBRAL ISCHEMIA 03/18/2020 ERMIAS ROBLES Ot C34.11 MALIGNANT NEOPLASM OF UPPER LOBE, RIGHT 03/18/2020 ERMIAS ROBLES Ot C44.702 UNSP MALIGNANT NEOPLASM SKIN/ RIGHT LOWE 03/18/2020 ERMIAS ROBLESP Ot C79.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 03/18/2020 ERMIAS ROBLES Ot C79.71 SECONDARY MALIGNANT NEOPLASM OF RIGHT AD 03/18/2020 GARO QUEZADA MD Ot C34. 11 MALIGNANT NEOPLASM OF UPPER LOBE, RIGHT 03/18/2020 GARO QUEZADA MD Ot C79. 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 03/18/2020 GARO QUEZADA MD Ot Z95.828 PRESENCE OF OTHER VASCULAR IMPLANTS AND 03/18/2020 LINCOLN NAVAS Ot M53.86 OTHER SPECIFIED DORSOPATHIES, LUMBAR REG 03/18/2020 LINCOLN NAVAS Ot M54.5 LOW BACK PAIN 03/18/2020 LINCOLN NAVAS Ot M79.604 PAIN IN RIGHT LEG 03/18/2020 LINCOLN NAVAS Ot Z98.890 OTHER SPECIFIED POSTPROCEDURAL STATES 03/18/2020 LINCOLN NAVAS Ot S72.041D DISP FX OF BASE OF NK OF R FEMR, 7THD 03/18/2020 LINCOLN NAVAS Ot Z98.890 OTHER SPECIFIED POSTPROCEDURAL STATES 03/18/2020 LINCOLN NAVAS Ot S72.009D FX UNSP PRT OF NK OF UNSP FEMR, 7THD 03/18/2020 LINCOLN NAVAS Ot X58.XXXD EXPOSURE TO OTHER SPECIFIED FACTORS, SUB 03/18/2020 Ot C34.11 MAL IGNANT NEOPLASM OF UPPER LOBE, RIGHT 03/18/2020 Ot C79.31 SEC ONDARY MALIGNANT NEOPLASM OF BRAIN 03/18/2020 Ot C79.71 SEC ONDARY MALIGNANT NEOPLASM OF RIGHT AD 03/18/2020 Ot D64.89 OTH ER SPECIFIED ANEMIAS 03/18/2020 Ot E78.00 PUR E HYPERCHOLESTEROLEMIA, UNSPECIFIED 03/18/2020 Ot E83.42 HYP OMAGNESEMIA 03/18/2020 Ot F17.210 NI COTINE DEPENDENCE, CIGARETTES, UNCOMPL 03/18/2020 Ot G40.909 EP ILEPSY, UNSP, NOT INTRACTABLE, WITHOUT 03/18/2020 Ot I25.10 ATH SCL HEART DISEASE OF [place] CORONARY 03/18/2020 Ot I25.2 OLD MYOCARDIAL INFARCTION 03/18/2020 Ot I50.9 HEAR T FAILURE, UNSPECIFIED 03/18/2020 Ot I63.9 CERE BRAL INFARCTION, UNSPECIFIED 03/18/2020 Ot I73.9 CINDY PHERAL VASCULAR DISEASE, UNSPECIFIED 03/18/2020 Ot K56.609 UN SP INTESTNL OBST, UNSP TO PARTIAL V 03/18/2020 Ot M19.90 UNS PECIFIED OSTEOARTHRITIS, UNSPECIFIED 03/18/2020 Ot M97.01XA P ERIPROSTH FRACTURE AROUND INTERNAL PROS 03/18/2020 Ot Z79.82 GRIFFIN G TERM (CURRENT) USE OF ASPIRIN 03/18/2020 Ot Z79.899 OT HER COLOR WORKER (CURRENT) DRUG THERAPY 03/18/2020 Ot Z82.0 FAMI LY HISTORY OF EPILEPSY AND OTH DIS O 03/18/2020 Ot Z93.3 COLO STOMY STATUS 03/18/2020 Ot Z95.1 PRES ENCE OF AORTOCORONARY BYPASS GRAFT 03/18/2020 Ot Z95.5 PRES ENCE OF CORONARY ANGIOPLASTY IMPLANT Procedures There is [...] NRG Blood microcytes detection by light microscopy [facility] NRG Comprehensive metabolic panel - 09/01/19 06:20 [...] sediment by light bev roscopy 10-25 NRG Blood lactic acid measurement (moles/vol ume) - 03/06/20 21:30 Blood lactic acid measurement (moles/volume) 1.91 mmol/L 0.50-2.00 Bacterial blood culture - 03/06/20 21:30 Bacterial blood culture NG NRG Bacterial blood culture - 03/06/20 21:45 Bacterial blood culture NG NRG Complete blood count (CBC) with automate d white blood cell (WBC) differential - 03/18/20 03:30 Blood leukocytes automated count (number/volume) 18.2 10*3/uL 4.3-11.0 Blood erythrocytes automated count (number/volume) 4.40 10*6/uL 4.35-5.85 Venous blood hemoglobin measurement (mass/volume) 13.6 g/dL 13.3-17.7 Blood hematocrit (volume fraction) 39 % 40-54 Automated erythrocyte mean corpuscular volume 89 [ foz_us] 80-99 Automated erythrocyte mean corpuscular h emoglobin (mass per erythrocyte) 31 pg 25-34 Automated erythrocyte mean corpuscular h emoglobin concentration measurement (mass/volume) 35 g/dL 32-36 Automated erythrocyte distribution width ratio 13. 5 % 10.0- 14.5 Automated blood platelet count (count/volume) 457 10*3/uL 130-400 Automated blood platelet mean volume measurement 8.7 [foz_us] 7.4-10.4 Automated blood neutrophils/100 leukocytes 86 % 42-75 Automated blood lymphocytes/100 leukocytes 7 % 12-44 Blood monocytes/100 leukocytes 6 % 0-12 Automated blood eosinophils/100 leukocytes 1 % 0-10 Automated blood basophils/100 leukocytes 0 % 0-10 Blood neutrophils automated count (number/volume) 15.6 10*3 1.8-7.8 Blood lymphocytes automated count (number/volume) 1.3 10*3 1.0-4.0 Blood monocytes automated count (number/volume) 1. 0 10*3 0.0-1.0 Automated eosinophil count 0.1 10*3/uL 0 .0-0.3 Automated blood basophil count (count/volume) 0.1 10*3/uL 0.0-0.1 Manual absolute plasma cell count - 03/07 09/26 03:30 Blood monocytes/100 leukocytes 5 % NRG Manual blood segmented neutrophils/100 leukocytes 85 % NRG Blood band neutrophils/100 leukocytes 1 % NRG Manual blood lymphocytes/100 leukocytes 9 % NRG Manual eosinophils/100 leukocytes in nose 0 % NRG Manual blood basophils/100 leukocytes 0 % NRG Blood erythrocyte morphology finding identification NORMAL NRG Comprehensive metabolic panel - 03/18/20 03:30 Serum or plasma sodium measurement (moles/volume) 135 mmol/L 135-145 Serum or plasma potassium measurement (moles/volume) 3.6 mmol/L 3.6-5.0 Serum or plasma chloride measurement (moles/volume) 98 mmol/L 98-107 Carbon dioxide 23 mmol/L 21-32 Serum or plasma anion gap determination (moles/volume) 14 mmol/L 5-14 Serum or plasma urea nitrogen measurement (mass/volume ) 12 mg/dL 7-18 Serum or plasma creatinine measurement (mass/volume) 0.85 mg/dL 0.60-1.30 Serum or plasma urea nitrogen/creatinine mass ratio 14 NRG Serum or plasma creatinine measurement w ith calculation of estimated glomerular filtration rate > NRG Serum or plasma glucose measurement (mass/volume) 124 mg/dL 70-105 Serum or plasma calcium measurement (mass/volume) 9.3 mg/dL 8.5-10.1 Serum or plasma total bilirubin measurement (mass/volu me) 0.2 mg/dL 0.1-1.0 Serum or plasma alkaline phosphatase alexandro surement (enzymatic activity/volume) 270 U/L 40-136 Serum or plasma aspartate aminotransfera se measurement (enzymatic activity/volume) 16 U/L 5-34 Serum or plasma alanine aminotransferase measurement (enzymatic activity/volume) 13 U/L 0-55 Serum or plasma protein measurement (mass/volume) 7.4 g/dL 6.4-8.2 Serum or plasma albumin measurement (mass/volume) 3.9 g/dL 3.2-4.5 CALCIUM CORRECTED 9.4 mg/dL 8.5-10.1 Lipase - 03/18/20 03:30 Lipase 19 U/L 8-78 Complete blood count (CBC) with automate d white blood cell (WBC) differential - 03/19/20 18:25 Blood leukocytes automated count (number/volume) 17.0 10*3/uL 4.3-11.0 Blood erythrocytes automated count (number/volume) 4.09 10*6/uL 4.35-5.85 Venous blood hemoglobin measurement (mass/volume) 12.6 g/dL 13.3-17.7 Blood hematocrit (volume fraction) 36 % 40-54 Automated erythrocyte mean corpuscular volume 89 [ foz_us] 80-99 Automated erythrocyte mean corpuscular h emoglobin (mass per erythrocyte) 31 pg 25-34 Automated erythrocyte mean corpuscular h emoglobin concentration measurement (mass/volume) 35 g/dL 32-36 Automated erythrocyte distribution width ratio 14. 3 % 10.0- 14.5 Automated blood platelet count (count/volume) 423 10*3/uL 130-400 Automated blood platelet mean volume measurement 8.4 [foz_us] 7.4-10.4 Automated blood neutrophils/100 leukocytes 83 % 42-75 Automated blood lymphocytes/100 leukocytes 9 % 12-44 Blood monocytes/100 leukocytes 7 % 0-12 Automated blood eosinophils/100 leukocytes 1 % 0-10 Automated blood basophils/100 leukocytes 0 % 0-10 Blood neutrophils automated count (number/volume) 14.2 10*3 1.8-7.8 Blood lymphocytes automated count (number/volume) 1.5 10*3 1.0-4.0 Blood monocytes automated count (number/volume) 1. 2 10*3 0.0-1.0 Automated eosinophil count 0.1 10*3/uL 0 .0-0.3 Automated blood basophil count (count/volume) 0.0 10*3/uL 0.0-0.1 Comprehensive metabolic panel - 03/19/20 18:25 Serum or plasma sodium measurement (moles/volume) 133 mmol/L 135-145 Serum or plasma potassium measurement (moles/volume) 3.4 mmol/L 3.6-5.0 Serum or plasma chloride measurement (moles/volume) 99 mmol/L 98-107 Carbon dioxide 23 mmol/L 21-32 Serum or plasma anion gap determination (moles/volume) 11 mmol/L 5-14 Serum or plasma urea nitrogen measurement (mass/volume ) 17 mg/dL 7-18 Serum or plasma creatinine measurement (mass/volume) 1.47 mg/dL 0.60-1.30 Serum or plasma urea nitrogen/creatinine mass ratio 12 NRG Serum or plasma creatinine measurement w ith calculation of estimated glomerular filtration rate 49 NRG Serum or plasma glucose measurement (mass/volume) 104 mg/dL 70-105 Serum or plasma calcium measurement (mass/volume) 8.6 mg/dL 8.5-10.1 Serum or plasma total bilirubin measurement (mass/volu me) 0.2 mg/dL 0.1-1.0 Serum or plasma alkaline phosphatase alexandro surement (enzymatic activity/volume) 225 U/L 40-136 Serum or plasma aspartate aminotransfera se measurement (enzymatic activity/volume) 12 U/L 5-34 Serum or plasma alanine aminotransferase measurement (enzymatic activity/volume) 11 U/L 0-55 Serum or plasma protein measurement (mass/volume) 7.1 g/dL 6.4-8.2 Serum or plasma albumin measurement (mass/volume) 3.7 g/dL 3.2-4.5 CALCIUM CORRECTED 8.8 mg/dL 8.5-10.1 Magnesium - 03/19/20 18:25 Magnesium 1.9 mg/dL 1.6-2.4 Lipase - 03/19/20 18:25 Lipase 14 U/L 8-78 Serum or plasma C reactive protein measu rement (mass/volume) - 03/19/20 18:25 Serum or plasma C reactive protein measurement (mass/v olume) 5.57 mg/dL 0.00-0.50 Encounters ACCT No. Visit Date/Time Discharge Status Pt. Type Provider Facility Loc./Unit Complaint [id number] 03/18/2020 03:24:00 020 05:38:00 DIS Emergency STEVIE ADKINS, BOBBY Hackett [facility] ER FS ABD PROBLEMS [id number] 03/03/2020 13:00:00 020 00:01:00 DIS Outpatient DAMIEN ADKINS, GARO [facility] ONC [id number] 03/06/2020 19:07:00 22:54:00 DIS Emergency ENMANUEL ADKINS, SERAFIN Rojas [facility] ER FS FALL [id number] 08/27/2019 13:07:00 00:01:00 DIS Outpatient GARO QUEZADA MD [facility] ONC [id number] 09/01/2019 09:24:00 12:43:00 DIS Inpatient RHIANNON DHALIWAL DO, V [facility] 4TH NAUSEA/VOMITING [id number] 04/30/2019 13:37:00 00:01:00 DIS Outpatient GARO QUEZADA MD [facility] ONC [id number] 06/04/2019 12:55:00 23:59:59 CLS Outpatient LINCOLN NAVAS [facility] RAD FS S72.009D [id number] 05/06/2019 12:36:00 23:59:59 CLS Outpatient LINCOLN NAVAS [facility] RAD FS S72.041A [id number] 01/29/2019 11:01:00 00:01:00 DIS Outpatient GARO QUEZADA MD [facility] ONC [id number] 04/22/2019 14:23:00 23:59:59 CLS Outpatient LINCOLN NAVAS [facility] RAD FS M79.605 [id number] 01/15/2019 16:16:00 19:55:00 DIS Emergency ENMANUEL ADKINS, SERAFIN Rojas [facility] ER FS BP ISSUES, NAUSEA, CHES T PAIN [id number] 01/01/2019 09:27:00 00:01:00 DIS Outpatient GARO QUEZADA MD [facility] ONC [id number] 11/01/2018 11:52:00 23:59:59 CLS Outpatient GARO QUEZADA MD [facility] RAD UNSTABLE BALANCE [id number] 09/11/2018 10:45:00 019 00:01:00 DIS Outpatient GARO QUEZADA MD [facility] ONC [id number] 06/14/2018 11:03:00 018 23:59:59 CLS Outpatient ERMIAS ROBLES [facility] CARD LUNG CANCER [id number] 05/21/2018 09:27:00 018 10:00:00 DIS Outpatient VALENTIN MEANS [facility] ONC [id number] 04/23/2018 10:47:00 018 23:59:59 CLS Outpatient GARO QUEZADA MD [facility] ONC [id number] 03/06/2018 10:41:00 018 10:36:00 DIS Outpatient VALENTIN MEANS [facility] ONC [id number] 01/08/2018 13:30:00 018 14:59:00 DIS Outpatient GARO QUEZADA MD [facility] ONC [id number] 11/28/2017 10:48:00 018 00:01:00 DIS Outpatient GARO QUEZADA MD [facility] ONC [id number] 08/09/2017 10:21:00 018 15:29:00 DIS Outpatient JIMY ROBERTSON MD, [facility] ONC [id number] 07/25/2017 10:35:00 018 14:38:00 DIS Outpatient GARO QUEZADA MD [facility] ONC [id number] 07/04/2017 10:34:00 017 23:59:59 CLS Outpatient GARO QUEZADA MD [facility] RAD C34.11 [id number] 05/30/2017 09:31:00 017 15:32:00 DIS Outpatient VALENTIN MEANS [facility] ONC [id number] 05/30/2017 08:09:00 017 23:59:59 CLS Preadmit VALENTIN MEANS [facility] ONC [id number] 05/16/2017 10:40:00 017 08:09:00 DIS Outpatient GARO QUEZADA MD [facility] ONC [id number] 05/02/2017 09:22:00 017 00:01:00 DIS Outpatient GARO QUEZADA MD [facility] ONC [id number] 03/15/2017 09:09:00 017 23:59:59 CLS Outpatient GARO QUEZAAD MD [facility] RAD BRAIN MASS G93.9 [id number] 02/21/2017 12:11:00 017 00:01:00 DIS Outpatient TRU ADKINS, JIM escoto [facility] ONC [id number] 12/22/2016 13:23:00 017 23:59:59 CLS Outpatient EDA ADKINS, VIVIANA Martinez [facility] RAD PORT CATHETER MALPOSITI ON IN [id number] 12/22/2016 11:01:00 017 23:59:59 CLS Outpatient TRU ADKINS, JIM escoto [facility] RAD C34.11 LUNG CANCER [id number] 11/15/2016 12:58:00 017 00:01:00 DIS Outpatient TRU ADKINS, JIM escoto [facility] ONC [id number] 11/07/2016 13:25:00 017 23:59:59 CLS Outpatient TRU ADKINS, JIM escoto [facility] RAD METASTASIS TO BRAIN,ADRIANA G CA [id number] 10/27/2016 14:20:00 017 23:59:59 CLS Outpatient JIM OTT MD [facility] RAD LUNG CA,METASTASIS TO B RAIN [id number] 08/29/2016 12:53:00 017 23:59:59 CLS Outpatient JIM OTT MD [facility] RAD LUNG CA,METASTASIS TO B RAIN [id number] 08/16/2016 12:37:00 017 00:01:00 DIS Outpatient TRU ADKINS, JIM escoto [facility] ONC [id number] 04/14/2016 09:30:00 10:57:00 DIS Outpatient TRU ADKINS, JIM escoto [facility] ONC [id number] 03/07/2016 12:53:00 016 00:01:00 DIS Outpatient TRU ADKINS, JIM escoto [facility] ONC [id number] 12/28/2015 10:47:00 23:59:59 CLS PreadERMIAS South [facility] ONC [id number] 03/19/2020 18:39:00 Document Registration [id number] 03/10/2020 00:00:00 Document Registration [id number] 03/20/2018 13:44:00 Document Registration
[2020-03-19 19:09] LABS: LYMPHOCYTES % (MANUAL) 9 %; MONOCYTES % (MANUAL) 6 %; NEUTROPHILS % (MANUAL) 85 %; RBC MORPH NORMAL
[2020-03-19 19:22] LABS: BILIRUBIN,URINE NEGATIVE (NEGATIVE); CLARITY,URINE CLEAR; COLOR,URINE YELLOW; GLUCOSE, URINE (UA) NEGATIVE (NEGATIVE); KETONES,URINE NEGATIVE (NEGATIVE); LEUKOCYTE ESTERASE ,URINE NEGATIVE (NEGATIVE); NITRITE,URINE NEGATIVE (NEGATIVE); PH,URINE 5.5 (5-9); PROTEIN,URINE TRACE (NEGATIVE)
[2020-03-19 19:53] LABS: AMORPHOUS SEDIMENT,UR FEW AMOR URATES /LPF; BACTERIA,URINE TRACE /HPF; HYALINE CASTS, URINE >50 /LPF; RBC,URINE 0-2 /HPF
[2020-03-19 19:55] LABS: URINE OTHER FEW SPERM /HPF
[2020-03-19] MEDS ORDERED: PROMETHAZINE INJ 25 MG/ML (PHENERGAN) AMP IVP ONE (20:00)
[2020-03-19] MEDS ORDERED: DIATRIZOATE MEGLUM/SODIUM 37% 120 ML (GASTROGRAFIN) PO ONE (20:15)
--- NOTE | 2020-03-19 20:56 | Diagnostic Imaging Report ---
PROCEDURE: CT abdomen and pelvis without contrast. TECHNIQUE: Multiple contiguous axial images were obtained through the abdomen and pelvis without the use of intravenous contrast. Auto Exposure Controls were utilized during the CT exam to meet ALARA standards for radiation dose reduction. INDICATION: Abdominal distention, decreased ostomy output. COMPARISON: 03/18/2020. FINDINGS: The lung bases are clear. There is vicarious secretion of contrast within the gallbladder. Overall, there is increasing colonic distention. Previous measurement of the cecum was 7.8 cm, now cecum measures 8.2 cm. Air-fluid levels persist. The remainder of the small bowel is decompressed. There is thickening of the splenic flexure of the colon. No obvious pneumatosis intestinalis is seen. There is bowel fecal matter at the level of the left midabdominal colostomy which is unchanged from the prior exam. There is no free air or free fluid. There is distention of the urinary bladder. The visualized solid organs are stable. Lung bases are clear. IMPRESSION: 1. Worsening colonic distention with unchanged distal colonic constipation at the level of the colostomy. 2. New thickening of the splenic flexure indicating edema of the bowel wall. No pneumatosis intestinalis is identified. 3. No free air, free fluid or abscess. Dictated by: Dictated on workstation # [id number]
[2020-03-19] MEDS ORDERED: PIPERACILLIN SODIUM/TAZOBACTAM 4.5 GM in NS (IVPB) 100 ML IV ONE (21:15)
--- NOTE | 2020-03-19 22:05 | NUR ---
2199- PT MOTHER WILL CALLED AND NOTIFIED PT REQUESTS SOMEONE BRINGS HIS HOME DILANTIN MEDICATION HE CANNOT TAKE SUBSTITUTES. MOTHER STATES SHE DOES NOT THINK ANYONE WILL BE ABLE TO BRING HIS DILANTIN TONIGHT. PT NOTIFIED. 2204- TANA CALLED AND NO ANSWER. PT NOTIFIED.
--- OUTSIDE RECORDS SUMMARY | 2020-03-19 22:22 | XMS REPORT | Encounter Summary ---
Author Author [facility] Organization [facility] Address Unknown Phone Unavailable Care Team Providers Care Machine Set Up Operator Paper Goods Name Role Phone Self, James ADKINS PCP Unavailable Reason for Visit * Reason Onset Date Comments Prior Authorization 12/05/2019 Dilantin 100 mg a pproved Encounter Details Care Team Description Date Type Department Kiersten Grover RNcrm developer (Dilantin 100 mg ap proved ) 12/05/2019 Telephone [facility] [id number] [place], [place] [id number] Social History Date Tobacco Use Types Packs/Day [...] Dilantin 100 mg approved for coverage by [facility] jaspreet. The drug is approved rick the coverage until 12/01/20 Noted Form scanned in pt's chart Vero Grover RN documented in this encounter Plan of Treatment Not on filedocumented as of this encounter Visit Diagnoses Not on filedocumented in this encounter
--- OUTSIDE RECORDS SUMMARY | 2020-03-19 22:22 | XMS REPORT | Encounter Summary ---
Author Author [facility] Organization [facility] Address Unknown Phone Unavailable Care Team Providers Care Care Specialist Name Role Phone Self, James ADKINS PCP Unavailable Reason for Visit * Reason Onset Date Comments Medication Question 02/10/2020 Encounter Details Care Team Description Date Type Department Marycruz Santos MD [address] [facility] [address] [place] [address] Medication Question 02/10/2020 Telephone [facility] [address] [place] [address] Social History Date Tobacco Use [...]
--- OUTSIDE RECORDS SUMMARY | 2020-03-19 22:22 | XMS REPORT | Encounter Summary ---
Author Author [facility] Organization [facility] Address Unknown Phone Unavailable Care Team Providers Care Cathode Builder Name Role Phone James Mullen MD PCP Unavailable Reason for Visit * Reason Comments Medication Refill Schizophrenia * (Routine) Referred By Contact Referred To Contact Status Reason Specialty Diagnoses / Procedures Shahla Grewal MD [address] [place] [address] Incomplete Psychiatry Encounter Details Care Team Description Date Type Department Shahla Grewal MD [address] [place], [place] [id number] Jaciel Villalba MD [address] [place], [place] [id number] Anxiety disorder, unspecified type (Prim ever Dx); Schizophrenia, paranoid type (HCC) 10/01/2019 Office Visit The [facility] [address] [facility] [address] [place] [address] Social History Date Tobacco Use [...] Jaciel Villalba MD - 10/01/2019 12:30 PM MANAGER HEAVY DUTY Subjective: Jose Yang is a 57 y.o. [...] use. States when he was in the senior care he had stopped smoking cigarettes, but when he [facility] out of the [facility], he immediately started smoking again. He [...] Affect: euthymic ; mood congruent Thought Process: [place]. Thought Content: denies SI, [place]. Minor paranoid [...] RTC in one month for supportive psychotherapy. GER HEAVY DUTY documented in this encounter Plan of Treatment [...]
--- OUTSIDE RECORDS SUMMARY | 2020-03-19 22:22 | XMS REPORT | Encounter Summary ---
Author Author [facility] Organization [facility] Address Unknown Phone Unavailable Care Team Providers Care Order Administrator Name Role Phone Self, James ADKINS PCP [...]
--- OUTSIDE RECORDS SUMMARY | 2020-03-19 22:22 | XMS REPORT | Clinical Summary ---
Author Author [facility] Organization [facility] Address Unknown Phone Unavailable Care Team Providers Care Firer Low Pressure Name Role Phone Self, James ADKINS PCP Unavailable Source Comments Some departments are not documenting in the electronic medical record. If you d o not see the information that you expected, contact Release of Information in [facility] Information Management department at [phone] for further assistan ce in locating additional records.[facility] Allergies Comments Active Allergy Reactions Severity [...] CDT Respiratory Rate 97% 10/16/2015 1:32 PM ELECTRIC DISTRIBUTION CHECKER Oxygen Saturation - - Inhaled Oxygen Concentration 70.3 kg (155 lb) 09/20/2019 2:39 PM ELECTRIC DISTRIBUTION CHECKER Weight 182.9 cm (6') 09/20/2019 2:39 PM ELECTRIC DISTRIBUTION CHECKER Height 21.02 09/20/2019 2:39 PM ELECTRIC DISTRIBUTION CHECKER Body Mass Index Plan of Treatment Health [...] Phone Address Plan / Dates Group Medicaid [facility] [place]ICAID [place] [facility] [id number] 2012-[address] [place] (Home) [address] [place] [address] Advance Directives 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
--- OUTSIDE RECORDS SUMMARY | 2020-03-19 22:22 | XMS REPORT | Encounter Summary ---
Author Author [facility] Organization [facility] Address Unknown Phone Unavailable Care Team Providers Care Rigging Up Worker Name Role Phone Self, James ADKINS PCP Unavailable Reason for Visit * Reason Onset Date Comments Prior Authorization 10/01/2019 Encounter Details Care Team Description Date Type Department Jaciel Villalba MD [address] [place] [address] Prior Authorization 10/01/2019 Telephone [facility] [address] [facility] Level [address] [place] [address] Social History Date Tobacco Use [...] - [place] - 10/01/2019 1:22 PM SOLE CEMENTER PA required for Olanzapine as written, orders adjusted to maintain goal dose and comply with quantity restrictions per protocol. CEMENTER documented in this encounter Plan of Treatment Not on filedocumented as of this encounter Visit Diagnoses Diagnosis Schizophrenia, paranoid type (HCC) Paranoid schizophrenia, unspecified con dition documented in this encounter
--- OUTSIDE RECORDS SUMMARY | 2020-03-19 22:22 | XMS REPORT | Encounter Summary ---
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 [facility] in [place]. He has a nurse from [facility] who puts together his pil l box every 2 weeks. Denies any seizures. I finally found his pharmacy: [facility] [address] [facility], [place] [address]. Self filled his mirtazapine 30mg qhs [...] qhs. Both written by Dr. Mullen . [facility] in 3 months. Call with [...]
--- OUTSIDE RECORDS SUMMARY | 2020-03-19 22:22 | XMS REPORT | Encounter Summary ---
Author Author [facility] Organization [facility] Address Unknown Phone Unavailable Care Team Providers Care Ice Cream Freezer Helper Name Role Phone Self, James ADKINS PCP Unavailable Reason for Visit * Reason Comments Medication Refill Encounter Details Care Team Description [place] [address] [place] [address] [phone] 11/29/2019 Refill The [facility] [address] [facility] [address] [place] [address] Social History Date Tobacco Use [...]
--- OUTSIDE RECORDS SUMMARY | 2020-03-19 22:22 | XMS REPORT | Encounter Summary ---
Author Author [facility] Organization [facility] Address Unknown Phone Unavailable Care Team Providers Care 411 Directory Assistance Operator Name Role Phone Sebas, James ADKINS PCP Unavailable Reason for Visit * Reason Comments Seizure seizure free * (Routine) Referred By Contact Referred To Contact Status Reason Specialty Diagnoses / Procedures Closed Encounter Details Care Team Description [place] [address] [place] [address] [phone] Left frontal lobe epilepsy (Primary Dx) 09/20/2019 Office Visit The [facility] [address] [facility] [address] [place] [address] Social History Date Tobacco Use Types Packs/Day [...] Comments Vital Sign 102/72 09/20/2019 2:39 PM SHINGLE CATCHER Blood Pressure 99 09/20/2019 2:39 PM SHINGLE CATCHER Pulse - - Temperature - - Respiratory Rate - - Oxygen Saturation - - Inhaled Oxygen Concentration 70.3 kg (155 lb) 09/20/2019 2:39 PM SHINGLE CATCHER Weight 182.9 cm (6') 09/20/2019 2:39 PM SHINGLE CATCHER Height 21.02 09/20/2019 2:39 PM SHINGLE CATCHER Body Mass Index documented in this encounter Progress Notes * Sadi Albright MD - 09/20/2019 3:15 PM SHINGLE CATCHER Subjective: History of Present Illness Jose Yang [...] the bilateral deltoids, biceps, triceps, wrist extensors, manager corporate strategy, ilio psoas, quads, hamstrings, gastrocnemius, and tibialis [...] any side effects from the antiepileptic medications. GLE CATCHER documented in this encounter Plan of Treatment Not on filedocumented as of this encounter Visit Diagnoses Diagnosis Left frontal lobe epilepsy Localization-related (focal) (partial) epilepsy and epileptic syndromes with complex partial seizures, without mention of intractabl e epilepsy documented in this encounter
--- OUTSIDE RECORDS SUMMARY | 2020-03-19 22:24 | XMS REPORT | Continuity of Care Document ---
Author Organization Unknown Address Unknown Phone Unavailable Allergies Active Description Code Type Severity Reaction Onset Reported/Identified Relationship to Patient Clinical Status Yes nitroglycerin [id number] Elvin g Allergy Unknown N/A 04/14/2016 Yes morphine [id number] Drug Allergy Mild nausea 01/15/2019 Medications There [...] Ot I25.1 0 ATHSCL HEART DISEASE OF [place] CORONARY GARO QUEZADA MD, Ot I25.2 OLD MYOCARDIAL INFARCTION GARO QUEZADA MD Ot Z51.1 1 ENCOUNTER FOR ANTINEOPLASTIC CHEMOTHERAP GARO QUEZADA MD Ot Z79.8 2 PRISON (CURRENT) USE OF ASPIRIN GARO QUEZADA MD, Ot Z79.8 99 OTHER LEAD IOS DEVELOPER (CURRENT) DRUG THERAPY GARO QUEZADA MD, Ot [...] Sampson Ot I25.10 ATHSCL HEART DISEASE OF [place] CORONARY VALENTIN MEANS Adrián Ot I25.2 OLD MYOCARDIAL INFARCTION VALENTIN MEANS Adrián Ot Z51.11 ENCOUNTER FOR ANTINEOPLASTIC CHEMOTHERAP VALENTIN MEANS Adrián Ot Z79.82 LEAD IOS DEVELOPER (CURRENT) USE OF ASPIRIN MIGUELANGEL VALENTIN Sampson Ot Z79.899 OTHER LEAD IOS DEVELOPER (CURRENT) DRUG THERAPY MIGUELANGEL VALENTIN Sampson Ot Z93.3 COLOSTOMY STATUS 07/06/1056 TRU ADKINS, JIM Law Ot C34.11 MALIGNANT NEOPLASM OF UPPER LOBE, RIGHT 07/06/1056 JIM OTT MD Ot F17.210 NICOTINE DEPENDENCE, CIGARETTES, UNCOMPL 07/06/1056 JIM OTT MD Ot G40.909 EPILEPSY, UNSP, NOT INTRACTABLE, WITHOUT 07/06/1056 JIM OTT MD Ot I25.10 ATHSCL HEART DISEASE OF [place] CORONARY 07/06/1056 JIM OTT MD Ot I25.2 [...] Ot I25. 10 ATHSCL HEART DISEASE OF [place] CORONARY 07/06/1437 GARO QUEZADA MD Ot I25. 2 OLD MYOCARDIAL INFARCTION 07/06/1437 GARO QUEZADA MD Ot Z51. 11 ENCOUNTER FOR ANTINEOPLASTIC CHEMOTHERAP 07/06/1437 GARO QUEZADA MD Ot Z79.899 OTHER PRISON (CURRENT) DRUG THERAPY 07/06/1528 JIMY ROBERTSON MD Ot C34.11 MALIGNANT NEOPLASM OF UPPER LOBE, RIGHT 07/06/1528 JIMY ROBERTSON MD Ot F17.210 NICOTINE DEPENDENCE, CIGARETTES, UNCOMPL 07/06/1528 JIMY ROBERTSON MD Ot G40.909 EPILEPSY, UNSP, NOT INTRACTABLE, WITHOUT 07/06/1528 JIMY ROBERTSON MD Ot I25.10 ATHSCL HEART DISEASE OF [place] CORONARY 07/06/1528 JIMY ROBERTSON MD Ot I25.2 OLD MYOCARDIAL INFARCTION 07/06/1528 JIMY ROBERTSON MD Ot Z51.11 ENCOUNTER FOR ANTINEOPLASTIC CHEMOTHERAP 07/06/1528 JIMY ROBERTSON MD Ot Z79.899 OTHER PRISON (CURRENT) DRUG THERAPY 12/28/2015 JIM OTT MD Ot C34.11 MALIGNANT NEOPLASM OF UPPER LOBE, RIGHT 12/28/2015 JIM OTT MD Ot F17.210 NICOTINE DEPENDENCE, CIGARETTES, UNCOMPL 12/28/2015 JIM OTT MD Ot G40.909 EPILEPSY, UNSP, NOT INTRACTABLE, WITHOUT 12/28/2015 JIM OTT MD Ot I25.10 ATHSCL HEART DISEASE OF [place] CORONARY 12/28/2015 JIM OTT MD Ot I25.2 OLD MYOCARDIAL INFARCTION 12/28/2015 JIM OTT MD Ot I73.89 OTHER SPECIFIED PERIPHERAL VASCULAR DISE 12/28/2015 JIM OTT MD Ot R63.4 ABNORMAL WEIGHT LOSS 01/25/2016 IJM OTT MD Ot C34.11 MALIGNANT NEOPLASM OF UPPER LOBE, RIGHT 01/25/2016 JIM OTT MD Ot F17.210 NICOTINE DEPENDENCE, CIGARETTES, UNCOMPL 01/25/2016 JIM OTT MD Ot G40.909 EPILEPSY, UNSP, NOT INTRACTABLE, WITHOUT 01/25/2016 JIM OTT MD Ot I25.10 ATHSCL HEART DISEASE OF [place] CORONARY 01/25/2016 JIM OTT MD Ot I25.2 OLD MYOCARDIAL INFARCTION 01/25/2016 JIM TOT MD Ot I73.89 OTHER SPECIFIED PERIPHERAL VASCULAR DISE 01/25/2016 JIM OTT MD Ot R63.4 ABNORMAL WEIGHT LOSS 03/13/2016 JIM OTT MD Ot C34.11 MALIGNANT NEOPLASM OF UPPER LOBE, RIGHT 03/13/2016 JIM OTT MD Ot F17.210 NICOTINE DEPENDENCE, CIGARETTES, UNCOMPL 03/13/2016 JIM OTT MD Ot G40.909 EPILEPSY, UNSP, NOT INTRACTABLE, WITHOUT 03/13/2016 JIM OTT MD Ot I25.10 ATHSCL HEART DISEASE OF [place] CORONARY 03/13/2016 JIM OTT MD Ot I25.2 [...] MD Ot I25.10 ATHSCL HEART DISEASE OF [place] CORONARY 03/24/2016 JIM OTT MD Ot I25.2 [...] MD Ot I25.10 ATHSCL HEART DISEASE OF [place] CORONARY 04/14/2016 JIM OTT MD Ot I25.2 [...] MD Ot I25.10 ATHSCL HEART DISEASE OF [place] CORONARY 04/14/2016 JIM OTT MD Ot I25.2 [...] MD Ot I25.10 ATHSCL HEART DISEASE OF [place] CORONARY 04/28/2016 JIM OTT MD Ot I25.2 [...] MD Ot I25.10 ATHSCL HEART DISEASE OF [place] CORONARY 05/09/2016 JIM OTT MD Ot I25.2 [...] MD Ot I25.10 ATHSCL HEART DISEASE OF [place] CORONARY 05/25/2016 JIM OTT MD, Ot I25.2 [...] MD Ot I25.10 ATHSCL HEART DISEASE OF [place] CORONARY 05/31/2016 JIM OTT MD Ot I25.2 OLD MYOCARDIAL INFARCTION 05/31/2016 JIM OTT MD Ot I73.89 OTHER SPECIFIED PERIPHERAL VASCULAR DISE 05/31/2016 JIM OTT MD Ot R63.4 ABNORMAL WEIGHT LOSS 05/31/2016 JIM OTT MD Ot Z79.899 OTHER PRISON (CURRENT) DRUG THERAPY 06/23/2016 JIM OTT MD Ot C34.11 MALIGNANT NEOPLASM OF UPPER LOBE, RIGHT 06/23/2016 JIM OTT MD Ot F17.210 NICOTINE DEPENDENCE, CIGARETTES, UNCOMPL 06/23/2016 JIM OTT MD Ot G40.909 EPILEPSY, UNSP, NOT INTRACTABLE, WITHOUT 06/23/2016 JIM OTT MD Ot I25.10 ATHSCL HEART DISEASE OF [place] CORONARY 06/23/2016 JIM OTT MD Ot I25.2 OLD MYOCARDIAL INFARCTION 06/23/2016 JIM OTT MD Ot I73.89 OTHER SPECIFIED PERIPHERAL VASCULAR DISE 06/23/2016 JIM OTT MD Ot R63.4 ABNORMAL WEIGHT LOSS 06/23/2016 JIM OTT MD Ot Z79.899 OTHER LEAD IOS DEVELOPER (CURRENT) DRUG THERAPY 08/22/2016 JIM OTT MD Ot C34.11 MALIGNANT NEOPLASM OF UPPER LOBE, RIGHT 08/22/2016 JIM OTT MD Ot F17.210 NICOTINE DEPENDENCE, CIGARETTES, UNCOMPL 08/22/2016 JIM OTT MD Ot G40.909 EPILEPSY, UNSP, NOT INTRACTABLE, WITHOUT 08/22/2016 JIM OTT MD Ot I25.10 ATHSCL HEART DISEASE OF [place] CORONARY 08/22/2016 JIM OTT MD Ot I25.2 OLD MYOCARDIAL INFARCTION 08/22/2016 JIM OTT MD Ot I73.89 OTHER SPECIFIED PERIPHERAL VASCULAR DISE 08/22/2016 JIM OTT MD Ot R63.4 ABNORMAL WEIGHT LOSS 08/22/2016 JIM OTT MD Ot Z51.11 ENCOUNTER FOR ANTINEOPLASTIC CHEMOTHERAP 08/22/2016 JIM OTT MD Ot Z79.899 OTHER PRISON (CURRENT) DRUG THERAPY 08/23/2016 JIM OTT MD Ot C34.11 MALIGNANT NEOPLASM OF UPPER LOBE, RIGHT 08/23/2016 JIM OTT MD Ot F17.210 NICOTINE DEPENDENCE, CIGARETTES, UNCOMPL 08/23/2016 JIM OTT MD Ot G40.909 EPILEPSY, UNSP, NOT INTRACTABLE, WITHOUT 08/23/2016 JIM OTT MD Ot I25.10 ATHSCL HEART DISEASE OF [place] CORONARY 08/23/2016 JIM OTT MD Ot I25.2 OLD MYOCARDIAL INFARCTION 08/23/2016 JIM OTT MD Ot I73.89 OTHER SPECIFIED PERIPHERAL VASCULAR DISE 08/23/2016 JIM OTT MD Ot R63.4 ABNORMAL WEIGHT LOSS 08/23/2016 JIM OTT MD Ot Z51.11 ENCOUNTER FOR ANTINEOPLASTIC CHEMOTHERAP 08/23/2016 JIM OTT MD Ot Z79.899 OTHER LEAD IOS DEVELOPER (CURRENT) DRUG THERAPY 08/24/2016 JIM OTT MD Ot C34.11 MALIGNANT NEOPLASM OF UPPER LOBE, RIGHT 08/24/2016 JIM OTT MD Ot F17.210 NICOTINE DEPENDENCE, CIGARETTES, UNCOMPL 08/24/2016 JIM OTT MD Ot G40.909 EPILEPSY, UNSP, NOT INTRACTABLE, WITHOUT 08/24/2016 JIM OTT MD Ot I25.10 ATHSCL HEART DISEASE OF [place] CORONARY 08/24/2016 JIM OTT MD Ot I25.2 OLD MYOCARDIAL INFARCTION 08/24/2016 JIM OTT MD Ot I73.89 OTHER SPECIFIED PERIPHERAL VASCULAR DISE 08/24/2016 JIM OTT MD Ot R63.4 ABNORMAL WEIGHT LOSS 08/24/2016 JIM OTT MD Ot Z51.11 ENCOUNTER FOR ANTINEOPLASTIC CHEMOTHERAP 08/24/2016 JIM OTT MD Ot Z79.899 OTHER LEAD IOS DEVELOPER (CURRENT) DRUG THERAPY 08/24/2016 JIM OTT MD Ot C34.11 MALIGNANT NEOPLASM OF UPPER LOBE, RIGHT 08/24/2016 JIM OTT MD Ot F17.210 NICOTINE DEPENDENCE, CIGARETTES, UNCOMPL 08/24/2016 JIM OTT MD Ot G40.909 EPILEPSY, UNSP, NOT INTRACTABLE, WITHOUT 08/24/2016 JIM OTT MD Ot I25.10 ATHSCL HEART DISEASE OF [place] CORONARY 08/24/2016 JIM OTT MD Ot I25.2 OLD MYOCARDIAL INFARCTION 08/24/2016 JIM OTT MD Ot I73.89 OTHER SPECIFIED PERIPHERAL VASCULAR DISE 08/24/2016 JIM OTT MD Ot R63.4 ABNORMAL WEIGHT LOSS 08/24/2016 JIM OTT MD Ot Z51.11 ENCOUNTER FOR ANTINEOPLASTIC CHEMOTHERAP 08/24/2016 JIM OTT MD Ot Z79.899 OTHER PRISON (CURRENT) DRUG THERAPY 08/30/2016 JIM OTT MD [...] MD Ot I25.10 ATHSCL HEART DISEASE OF [place] CORONARY 09/06/2016 JIM OTT MD Ot I25.2 OLD MYOCARDIAL INFARCTION 09/06/2016 JIM OTT MD Ot I73.89 OTHER SPECIFIED PERIPHERAL VASCULAR DISE 09/06/2016 JIM OTT MD Ot R63.4 ABNORMAL WEIGHT LOSS 09/06/2016 JIM OTT MD Ot Z51.11 ENCOUNTER FOR ANTINEOPLASTIC CHEMOTHERAP 09/06/2016 JIM OTT MD Ot Z79.899 OTHER LEAD IOS DEVELOPER (CURRENT) DRUG THERAPY 09/13/2016 JIM OTT MD [...] MD Ot I25.10 ATHSCL HEART DISEASE OF [place] CORONARY 09/28/2016 JIM OTT MD Ot I25.2 OLD MYOCARDIAL INFARCTION 09/28/2016 JIM OTT MD Ot I73.89 OTHER SPECIFIED PERIPHERAL VASCULAR DISE 09/28/2016 JIM OTT MD Ot R63.4 ABNORMAL WEIGHT LOSS 09/28/2016 JIM OTT MD Ot Z51.11 ENCOUNTER FOR ANTINEOPLASTIC CHEMOTHERAP 09/28/2016 JIM OTT MD Ot Z79.899 OTHER LEAD IOS DEVELOPER (CURRENT) DRUG THERAPY 10/04/2016 JIM OTT MD Ot C34.11 MALIGNANT NEOPLASM OF UPPER LOBE, RIGHT 10/04/2016 JIM OTT MD Ot F17.210 NICOTINE DEPENDENCE, CIGARETTES, UNCOMPL 10/04/2016 JIM OTT MD Ot G40.909 EPILEPSY, UNSP, NOT INTRACTABLE, WITHOUT 10/04/2016 JIM OTT MD Ot I25.10 ATHSCL HEART DISEASE OF [place] CORONARY 10/04/2016 JIM OTT MD Ot I25.2 OLD MYOCARDIAL INFARCTION 10/04/2016 JIM OTT MD Ot I73.89 OTHER SPECIFIED PERIPHERAL VASCULAR DISE 10/04/2016 JIM OTT MD Ot R63.4 ABNORMAL WEIGHT LOSS 10/04/2016 JIM OTT MD Ot Z51.11 ENCOUNTER FOR ANTINEOPLASTIC CHEMOTHERAP 10/04/2016 JIM OTT MD Ot Z79.899 OTHER LEAD IOS DEVELOPER (CURRENT) DRUG THERAPY 10/27/2016 JIM OTT MD, Ot C34.11 MALIGNANT NEOPLASM OF UPPER LOBE, RIGHT 10/27/2016 JIM OTT MD Ot F17.210 NICOTINE DEPENDENCE, CIGARETTES, UNCOMPL 10/27/2016 JIM OTT MD Ot G40.909 EPILEPSY, UNSP, NOT INTRACTABLE, WITHOUT 10/27/2016 JIM OTT MD Ot I25.10 ATHSCL HEART DISEASE OF [place] CORONARY 10/27/2016 JIM OTT MD Ot I25.2 OLD MYOCARDIAL INFARCTION 10/27/2016 JIM OTT MD Ot I73.89 OTHER SPECIFIED PERIPHERAL VASCULAR DISE 10/27/2016 JIM OTT MD, Ot R63.4 ABNORMAL WEIGHT LOSS 10/27/2016 JIM OTT MD Ot Z51.11 ENCOUNTER FOR ANTINEOPLASTIC CHEMOTHERAP 10/27/2016 JIM OTT MD, Ot Z79.899 OTHER LEAD IOS DEVELOPER (CURRENT) DRUG THERAPY 10/27/2016 JIM OTT MD [...] MD Ot I25.10 ATHSCL HEART DISEASE OF [place] CORONARY 11/01/2016 JIM OTT MD Ot I25.2 OLD MYOCARDIAL INFARCTION 11/01/2016 JIM OTT MD Ot I73.89 OTHER SPECIFIED PERIPHERAL VASCULAR DISE 11/01/2016 JIM OTT MD Ot R63.4 ABNORMAL WEIGHT LOSS 11/01/2016 JIM OTT MD, Ot Z51.11 ENCOUNTER FOR ANTINEOPLASTIC CHEMOTHERAP 11/01/2016 JIM OTT MD, Ot Z79.899 OTHER PRISON (CURRENT) DRUG THERAPY 11/08/2016 JIM OTT MD, [...] MD, Ot I25.10 ATHSCL HEART DISEASE OF [place] CORONARY 11/09/2016 JIM OTT MD, Ot I25.2 OLD MYOCARDIAL INFARCTION 11/09/2016 JIM OTT MD, Ot I73.89 OTHER SPECIFIED PERIPHERAL VASCULAR DISE 11/09/2016 JIM OTT MD, Ot R63.4 ABNORMAL WEIGHT LOSS 11/09/2016 JIM OTT MD, Ot Z51.11 ENCOUNTER FOR ANTINEOPLASTIC CHEMOTHERAP 11/09/2016 JIM OTT MD, Ot Z79.899 OTHER LEAD IOS DEVELOPER (CURRENT) DRUG THERAPY 11/09/2016 JIM OTT MD, [...] MD Ot I25.10 ATHSCL HEART DISEASE OF [place] CORONARY 11/21/2016 JIM OTT MD Ot I25.2 OLD MYOCARDIAL INFARCTION 11/21/2016 JIM OTT MD Ot I73.89 OTHER SPECIFIED PERIPHERAL VASCULAR DISE 11/21/2016 JIM OTT MD Ot R63.4 ABNORMAL WEIGHT LOSS 11/21/2016 JIM OTT MD Ot Z51.11 ENCOUNTER FOR ANTINEOPLASTIC CHEMOTHERAP 11/21/2016 JIM OTT MD Ot Z79.899 OTHER LEAD IOS DEVELOPER (CURRENT) DRUG THERAPY 11/22/2016 JIM OTT MD, Ot C34.11 MALIGNANT NEOPLASM OF UPPER LOBE, RIGHT 11/22/2016 JIM OTT MD Ot F17.210 NICOTINE DEPENDENCE, CIGARETTES, UNCOMPL 11/22/2016 JIM OTT MD Ot G40.909 EPILEPSY, UNSP, NOT INTRACTABLE, WITHOUT 11/22/2016 JIM OTT MD Ot I25.10 ATHSCL HEART DISEASE OF [place] CORONARY 11/22/2016 JIM OTT MD Ot I25.2 OLD MYOCARDIAL INFARCTION 11/22/2016 JIM OTT MD Ot I73.89 OTHER SPECIFIED PERIPHERAL VASCULAR DISE 11/22/2016 JIM OTT MD Ot R63.4 ABNORMAL WEIGHT LOSS 11/22/2016 JIM OTT MD Ot Z51.11 ENCOUNTER FOR ANTINEOPLASTIC CHEMOTHERAP 11/22/2016 JIM OTT MD Ot Z79.899 OTHER LEAD IOS DEVELOPER (CURRENT) DRUG THERAPY 11/24/2016 JIM OTT MD [...] MD Ot I25.10 ATHSCL HEART DISEASE OF [place] CORONARY 11/29/2016 JIM OTT MD Ot I25.2 OLD MYOCARDIAL INFARCTION 11/29/2016 JIM OTT MD Ot I73.89 OTHER SPECIFIED PERIPHERAL VASCULAR DISE 11/29/2016 JIM OTT MD Ot R63.4 ABNORMAL WEIGHT LOSS 11/29/2016 JIM OTT MD, Ot Z51.11 ENCOUNTER FOR ANTINEOPLASTIC CHEMOTHERAP 11/29/2016 JIM OTT MD, Ot Z79.899 OTHER PRISON (CURRENT) DRUG THERAPY 12/12/2016 JIM OTT MD, Ot C34.11 MALIGNANT NEOPLASM OF UPPER LOBE, RIGHT 12/12/2016 JIM OTT MD, Ot F17.210 NICOTINE DEPENDENCE, CIGARETTES, UNCOMPL 12/12/2016 JIM OTT MD, Ot G40.909 EPILEPSY, UNSP, NOT INTRACTABLE, WITHOUT 12/12/2016 JIM OTT MD Ot I25.10 ATHSCL HEART DISEASE OF [place] CORONARY 12/12/2016 JIM OTT MD Ot I25.2 OLD MYOCARDIAL INFARCTION 12/12/2016 JIM OTT MD Ot I73.89 OTHER SPECIFIED PERIPHERAL VASCULAR DISE 12/12/2016 JIM OTT MD Ot R63.4 ABNORMAL WEIGHT LOSS 12/12/2016 JIM OTT MD Ot Z51.11 ENCOUNTER FOR ANTINEOPLASTIC CHEMOTHERAP 12/12/2016 JIM OTT MD Ot Z79.899 OTHER PRISON (CURRENT) DRUG THERAPY 12/22/2016 JIM OTT MD, [...] MD Ot I25.10 ATHSCL HEART DISEASE OF [place] CORONARY 12/22/2016 JIM OTT MD, Ot I25.2 OLD MYOCARDIAL INFARCTION 12/22/2016 JIM OTT MD Ot I73.89 OTHER SPECIFIED PERIPHERAL VASCULAR DISE 12/22/2016 JIM OTT MD Ot R63.4 ABNORMAL WEIGHT LOSS 12/22/2016 JIM OTT MD, Ot Z51.11 ENCOUNTER FOR ANTINEOPLASTIC CHEMOTHERAP 12/22/2016 JIM OTT MD, Ot Z79.899 OTHER LEAD IOS DEVELOPER (CURRENT) DRUG THERAPY 12/23/2016 VIVIANA VERAS MD [...] MD Ot I25.10 ATHSCL HEART DISEASE OF [place] CORONARY 12/26/2016 JIM OTT MD Ot I25.2 OLD MYOCARDIAL INFARCTION 12/26/2016 JIM OTT MD Ot I73.89 OTHER SPECIFIED PERIPHERAL VASCULAR DISE 12/26/2016 JIM OTT MD Ot R63.4 ABNORMAL WEIGHT LOSS 12/26/2016 JIM OTT MD Ot Z51.11 ENCOUNTER FOR ANTINEOPLASTIC CHEMOTHERAP 12/26/2016 JIM OTT MD, Ot Z79.899 OTHER PRISON (CURRENT) DRUG THERAPY 01/05/2017 JIM OTT MD, [...] MD Ot I25.10 ATHSCL HEART DISEASE OF [place] CORONARY 02/27/2017 JIM OTT MD Ot I25.2 OLD MYOCARDIAL INFARCTION 02/27/2017 JIM OTT MD Ot I73.89 OTHER SPECIFIED PERIPHERAL VASCULAR DISE 02/27/2017 JIM OTT MD Ot R63.4 ABNORMAL WEIGHT LOSS 02/27/2017 JIM OTT MD Ot Z51.11 ENCOUNTER FOR ANTINEOPLASTIC CHEMOTHERAP 02/27/2017 JIM OTT MD Ot Z79.899 OTHER PRISON (CURRENT) DRUG THERAPY 03/06/2017 GARO QUEZADA MD, Ot C34. 11 MALIGNANT NEOPLASM OF UPPER LOBE, RIGHT 03/06/2017 GARO QUEZADA MD, Ot F17.210 NICOTINE DEPENDENCE, CIGARETTES, UNCOMPL 03/06/2017 GARO QUEZADA MD, Ot G40.909 EPILEPSY, UNSP, NOT INTRACTABLE, WITHOUT 03/06/2017 GARO QUEZADA MD, Ot I25. 10 ATHSCL HEART DISEASE OF [place] CORONARY 03/06/2017 GARO QUEZADA MD Ot I25. 2 OLD MYOCARDIAL INFARCTION 03/06/2017 GARO QUEZADA MD Ot I73. 89 OTHER SPECIFIED PERIPHERAL VASCULAR DISE 03/06/2017 GARO QUEZADA MD Ot R63. 4 ABNORMAL WEIGHT LOSS 03/06/2017 GARO QUEZADA MD Ot Z51. 11 ENCOUNTER FOR ANTINEOPLASTIC CHEMOTHERAP 03/06/2017 GARO QUEZADA MD Ot Z79.899 OTHER PRISON (CURRENT) DRUG THERAPY 03/07/2017 GARO QUEZADA MD Ot C34. 11 MALIGNANT NEOPLASM OF UPPER LOBE, RIGHT 03/07/2017 GARO QUEZADA MD Ot F17.210 NICOTINE DEPENDENCE, CIGARETTES, UNCOMPL 03/07/2017 GARO QUEZADA MD Ot G40.909 EPILEPSY, UNSP, NOT INTRACTABLE, WITHOUT 03/07/2017 GARO QUEZADA MD Ot I25. 10 ATHSCL HEART DISEASE OF [place] CORONARY 03/07/2017 GARO QUEZADA MD Ot I25. 2 OLD MYOCARDIAL INFARCTION 03/07/2017 GARO QUEZADA MD Ot I73. 89 OTHER SPECIFIED PERIPHERAL VASCULAR DISE 03/07/2017 GARO QUEZADA MD Ot R63. 4 ABNORMAL WEIGHT LOSS 03/07/2017 GARO QUEZADA MD Ot Z51. 11 ENCOUNTER FOR ANTINEOPLASTIC CHEMOTHERAP 03/07/2017 GARO QUEZADA MD Ot Z79.899 OTHER PRISON (CURRENT) DRUG THERAPY 03/15/2017 GARO QUEZADA MD [...] Ot I25. 10 ATHSCL HEART DISEASE OF [place] CORONARY 04/12/2017 GARO QUEZADA MD Ot I25. 2 OLD MYOCARDIAL INFARCTION 04/12/2017 GARO QUEZADA MD Ot I73. 89 OTHER SPECIFIED PERIPHERAL VASCULAR DISE 04/12/2017 GARO QUEZADA MD Ot R63. 4 ABNORMAL WEIGHT LOSS 04/12/2017 GARO QUEZADA MD Ot Z51. 11 ENCOUNTER FOR ANTINEOPLASTIC CHEMOTHERAP 04/12/2017 GARO QUEZADA MD Ot Z79.899 OTHER PRISON (CURRENT) DRUG THERAPY 04/27/2017 GARO QUEZADA MD Ot C34. 11 MALIGNANT NEOPLASM OF UPPER LOBE, RIGHT 04/27/2017 GARO QUEZDAA MD Ot F17.210 NICOTINE DEPENDENCE, CIGARETTES, UNCOMPL 04/27/2017 GARO QUEZADA MD, Ot G40.909 EPILEPSY, UNSP, NOT INTRACTABLE, WITHOUT 04/27/2017 GARO QUEZADA MD Ot I25. 10 ATHSCL HEART DISEASE OF [place] CORONARY 04/27/2017 GARO QUEZADA MD Ot I25. 2 OLD MYOCARDIAL INFARCTION 04/27/2017 GARO QUEZADA MD Ot I73. 89 OTHER SPECIFIED PERIPHERAL VASCULAR DISE 04/27/2017 GARO QUEZADA MD Ot R63. 4 ABNORMAL WEIGHT LOSS 04/27/2017 GARO QUEZADA MD Ot Z51. 11 ENCOUNTER FOR ANTINEOPLASTIC CHEMOTHERAP 04/27/2017 GARO QUEZADA MD Ot Z79.899 OTHER PRISON (CURRENT) DRUG THERAPY 05/06/2017 GARO QUEZADA MD Ot C34. 11 MALIGNANT NEOPLASM OF UPPER LOBE, RIGHT 05/06/2017 GARO QUEZADA MD Ot F17.210 NICOTINE DEPENDENCE, CIGARETTES, UNCOMPL 05/06/2017 GARO QUEZADA MD Ot G40.909 EPILEPSY, UNSP, NOT INTRACTABLE, WITHOUT 05/06/2017 GARO QUEZADA MD Ot I25. 10 ATHSCL HEART DISEASE OF [place] CORONARY 05/06/2017 GARO QUEZADA MD Ot I25. 2 OLD MYOCARDIAL INFARCTION 05/06/2017 GARO QUEZADA MD Ot I73. 89 OTHER SPECIFIED PERIPHERAL VASCULAR DISE 05/06/2017 GARO QUEZADA MD Ot R63. 4 ABNORMAL WEIGHT LOSS 05/06/2017 GARO QUEZADA MD Ot Z51. 11 ENCOUNTER FOR ANTINEOPLASTIC CHEMOTHERAP 05/06/2017 GARO QUEZADA MD Ot Z79.899 OTHER LEAD IOS DEVELOPER (CURRENT) DRUG THERAPY 05/17/2017 GARO QUEZADA MD Ot C34. 11 MALIGNANT NEOPLASM OF UPPER LOBE, RIGHT 05/17/2017 AGRO QUEZADA MD Ot F17.210 NICOTINE DEPENDENCE, CIGARETTES, UNCOMPL 05/17/2017 GARO QUEZADA MD Ot G40.909 EPILEPSY, UNSP, NOT INTRACTABLE, WITHOUT 05/17/2017 GARO QUEZADA MD Ot I25. 10 ATHSCL HEART DISEASE OF [place] CORONARY 05/17/2017 GARO QUEZADA MD Ot I25. 2 OLD MYOCARDIAL INFARCTION 05/17/2017 GARO QUEZADA MD Ot I73. 89 OTHER SPECIFIED PERIPHERAL VASCULAR DISE 05/17/2017 GARO QUEZADA MD Ot Z51. 11 ENCOUNTER FOR ANTINEOPLASTIC CHEMOTHERAP 05/17/2017 GARO QUEZADA MD Ot Z79.899 OTHER PRISON (CURRENT) DRUG THERAPY 05/30/2017 GARO QUEZADA MD, Ot C34. 11 MALIGNANT NEOPLASM OF UPPER LOBE, RIGHT 05/30/2017 GARO QUEZADA MD Ot F17.210 NICOTINE DEPENDENCE, CIGARETTES, UNCOMPL 05/30/2017 GARO QUEZADA MD Ot G40.909 EPILEPSY, UNSP, NOT INTRACTABLE, WITHOUT 05/30/2017 GARO QUEZADA MD Ot I25. 10 ATHSCL HEART DISEASE OF [place] CORONARY 05/30/2017 GARO QUEZADA MD Ot I25. 2 OLD MYOCARDIAL INFARCTION 05/30/2017 GARO QUEZADA MD Ot I73. 89 OTHER SPECIFIED PERIPHERAL VASCULAR DISE 05/30/2017 GARO QUEZADA MD Ot Z51. 11 ENCOUNTER FOR ANTINEOPLASTIC CHEMOTHERAP 05/30/2017 GARO QUEZADA MD Ot Z79.899 OTHER LEAD IOS DEVELOPER (CURRENT) DRUG THERAPY 05/30/2017 VALENTIN MEANS Ot C34.11 MALIGNANT NEOPLASM OF UPPER LOBE, RIGHT 05/30/2017 MIGUELANGEL, BOBAN N Ot F17.210 NICOTINE DEPENDENCE, CIGARETTES, UNCOMPL 05/30/2017 MIGUELANGELNIKOLEAN N Ot G40.909 EPILEPSY, UNSP, NOT INTRACTABLE, WITHOUT 05/30/2017 MIGUELANGEL, BOBAN N Ot I25.10 ATHSCL HEART DISEASE OF [place] CORONARY 05/30/2017 NIKOLE MEANSAN N Ot I25.2 OLD MYOCARDIAL INFARCTION 05/30/2017 VALENTIN MEANS N Ot I73.89 OTHER SPECIFIED PERIPHERAL VASCULAR DISE 05/30/2017 VALENTIN MEANS N Ot Z51.11 ENCOUNTER FOR ANTINEOPLASTIC CHEMOTHERAP 05/30/2017 MIGUELANGEL BOBAN N Ot Z79.899 OTHER LEAD IOS DEVELOPER (CURRENT) DRUG THERAPY 05/31/2017 MIGUELANGEL BOBAN N Ot C34.11 MALIGNANT NEOPLASM OF UPPER LOBE, RIGHT 05/31/2017 MIGUELANGEL BOBAN N Ot F17.210 NICOTINE DEPENDENCE, CIGARETTES, UNCOMPL 05/31/2017 MIGUELANGELNIKOLE SAMSONAN N Ot G40.909 EPILEPSY, UNSP, NOT INTRACTABLE, WITHOUT 05/31/2017 MIGUELANGEL, BOBAN N Ot H53.2 DIPLOPIA 05/31/2017 MIGUELANGEL, BOBAN N Ot I25.10 ATHSCL HEART DISEASE OF [place] CORONARY 05/31/2017 MIGUELANGEL BOBAN N Ot I25.2 OLD MYOCARDIAL INFARCTION 05/31/2017 MIGUELANGEL BOBAN N Ot Z79.899 OTHER LEAD IOS DEVELOPER (CURRENT) DRUG THERAPY 06/13/2017 MIGUELANGEL BOBAN N Ot C34.11 MALIGNANT NEOPLASM OF UPPER LOBE, RIGHT 06/13/2017 MIGUELANGELNIKOLEAN N Ot F17.210 NICOTINE DEPENDENCE, CIGARETTES, UNCOMPL 06/13/2017 MIGUELANGELNIKOLEAN N Ot G40.909 EPILEPSY, UNSP, NOT INTRACTABLE, WITHOUT 06/13/2017 MIGUELANGEL, BOBAN N Ot H53.2 DIPLOPIA 06/13/2017 MIGUELANGEL BOBAN N Ot I25.10 ATHSCL HEART DISEASE OF [place] CORONARY 06/13/2017 MIGUELANGEL BOBAN N Ot I25.2 OLD MYOCARDIAL INFARCTION 06/13/2017 MIGUELANGEL, BOBAN N Ot 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 11 MALIGNANT NEOPLASM OF UPPER LOBE, RIGHT 06/14/2017 GARO QUEZADA MD, Ot F17.210 NICOTINE DEPENDENCE, CIGARETTES, UNCOMPL 06/14/2017 GARO QUEZADA MD, Ot G40.909 EPILEPSY, UNSP, NOT INTRACTABLE, WITHOUT 06/14/2017 GARO QUEZADA MD, Ot H53. 2 DIPLOPIA 06/14/2017 GARO QUEZADA MD, Ot I25. 10 ATHSCL HEART DISEASE OF [place] CORONARY 06/14/2017 GARO QUEZADA MD, Ot I25. 2 OLD MYOCARDIAL INFARCTION 06/14/2017 GARO QUEZADA MD, Ot Z51. 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 10 ATHSCL HEART DISEASE OF [place] CORONARY 07/24/2017 GARO QUEZADA MD Ot I25. 2 OLD MYOCARDIAL INFARCTION 07/24/2017 GARO QUEZADA MD Ot Z51. 11 ENCOUNTER FOR ANTINEOPLASTIC CHEMOTHERAP 07/24/2017 GARO QUEZADA MD Ot Z79.899 OTHER PRISON (CURRENT) DRUG THERAPY 08/08/2017 GARO QUEZADA MD Ot C34. 11 MALIGNANT NEOPLASM OF UPPER LOBE, RIGHT 08/08/2017 GARO QUEZADA MD Ot F17.210 NICOTINE DEPENDENCE, CIGARETTES, UNCOMPL 08/08/2017 GARO QUEZADA MD Ot G40.909 EPILEPSY, UNSP, NOT INTRACTABLE, WITHOUT 08/08/2017 GARO QUEZADA MD Ot H53. 2 DIPLOPIA 08/08/2017 GARO QUEZADA MD Ot I25. 10 ATHSCL HEART DISEASE OF [place] CORONARY 08/08/2017 GARO QUEZADA MD Ot I25. 2 OLD MYOCARDIAL INFARCTION 08/08/2017 GARO QUEZADA MD Ot Z51. 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 08/10/2017 JIMY ROBERTSON MD Ot C34.11 MALIGNANT NEOPLASM OF UPPER LOBE, RIGHT 08/10/2017 JIMY ROBERTSON MD Ot F17.210 NICOTINE DEPENDENCE, CIGARETTES, UNCOMPL 08/10/2017 JIMY ROBERTSON MD Ot G40.909 EPILEPSY, UNSP, NOT INTRACTABLE, WITHOUT 08/10/2017 JIMY ROBERTSON MD Ot I25.10 ATHSCL HEART DISEASE OF [place] CORONARY 08/10/2017 JIMY ROBERTSON MD Ot I25.2 OLD MYOCARDIAL INFARCTION 08/10/2017 JIMY ROBERTSON MD Ot Z51.11 ENCOUNTER FOR ANTINEOPLASTIC CHEMOTHERAP 08/10/2017 JIMY ROBERTSON MD Ot Z79.899 OTHER PRISON (CURRENT) DRUG THERAPY 09/06/2017 JIMY ROBERTSON MD Ot C34.11 MALIGNANT NEOPLASM OF UPPER LOBE, RIGHT 09/06/2017 AILYN ADKINS, JIMY Ot F17.210 NICOTINE DEPENDENCE, CIGARETTES, UNCOMPL 09/06/2017 JIMY ROBERTSON MD Ot G40.909 EPILEPSY, UNSP, NOT INTRACTABLE, WITHOUT 09/06/2017 JIMY ROBERTSON MD Ot I25.10 ATHSCL HEART DISEASE OF [place] CORONARY 09/06/2017 JIMY ROBERTSON MD Ot I25.2 OLD MYOCARDIAL INFARCTION 09/06/2017 JIMY ROBERTSON MD Ot Z51.11 ENCOUNTER FOR ANTINEOPLASTIC CHEMOTHERAP 09/06/2017 JIMY ROBERTSON MD Ot Z79.899 OTHER PRISON (CURRENT) DRUG THERAPY 09/21/2017 GARO QUEZADA MD Ot C34. 11 MALIGNANT NEOPLASM OF UPPER LOBE, RIGHT 09/21/2017 GARO QUEZADA MD Ot F17.210 NICOTINE DEPENDENCE, CIGARETTES, UNCOMPL 09/21/2017 GARO QUEZADA MD Ot G40.909 EPILEPSY, UNSP, NOT INTRACTABLE, WITHOUT 09/21/2017 GARO QUEZADA MD Ot I25. 10 ATHSCL HEART DISEASE OF [place] CORONARY 09/21/2017 GARO QUEZADA MD Ot I25. 2 OLD MYOCARDIAL INFARCTION 09/21/2017 GARO QUEZADA MD Ot Z51. 11 ENCOUNTER FOR ANTINEOPLASTIC CHEMOTHERAP 09/21/2017 GARO QUEZADA MD Ot Z79.899 OTHER PRISON (CURRENT) DRUG THERAPY 10/30/2017 GARO QUEZADA MD Ot C34. 11 MALIGNANT NEOPLASM OF UPPER LOBE, RIGHT 10/30/2017 GARO QUEZADA MD Ot F17.210 NICOTINE DEPENDENCE, CIGARETTES, UNCOMPL 10/30/2017 GARO QUEZADA MD Ot G40.909 EPILEPSY, UNSP, NOT INTRACTABLE, WITHOUT 10/30/2017 GARO QUEZADA MD Ot I25. 10 ATHSCL HEART DISEASE OF [place] CORONARY 10/30/2017 GARO QUEZADA MD Ot I25. 2 OLD MYOCARDIAL INFARCTION 10/30/2017 GARO QUEZADA MD Ot Z51. 11 ENCOUNTER FOR ANTINEOPLASTIC CHEMOTHERAP 10/30/2017 GARO QUEZADA MD Ot Z79.899 OTHER PRISON (CURRENT) DRUG THERAPY 11/28/2017 GARO QUEZADA MD Ot C34. 11 MALIGNANT NEOPLASM OF UPPER LOBE, RIGHT 11/28/2017 GARO QUEZADA MD Ot F17.210 NICOTINE DEPENDENCE, CIGARETTES, UNCOMPL 11/28/2017 GARO QUEZADA MD, Ot G40.909 EPILEPSY, UNSP, NOT INTRACTABLE, WITHOUT 11/28/2017 GARO QUEZADA MD Ot I25. 10 ATHSCL HEART DISEASE OF [place] CORONARY 11/28/2017 GARO QUEZADA MD Ot I25. 2 OLD MYOCARDIAL INFARCTION 11/28/2017 GARO QUEZADA MD, Ot Z51. 11 ENCOUNTER FOR ANTINEOPLASTIC CHEMOTHERAP 11/28/2017 GARO QUEZADA MD Ot Z79.899 OTHER PRISON (CURRENT) DRUG THERAPY 12/05/2017 GARO QUEZADA MD, [...] Ot I25. 10 ATHSCL HEART DISEASE OF [place] CORONARY 12/05/2017 GARO QUEZADA MD Ot I25. 2 OLD MYOCARDIAL INFARCTION 12/05/2017 GARO QUEZADA MD Ot Z51. 11 ENCOUNTER FOR ANTINEOPLASTIC CHEMOTHERAP 12/05/2017 GARO QUEZADA MD, Ot Z79.899 OTHER LEAD IOS DEVELOPER (CURRENT) DRUG THERAPY 12/05/2017 GARO QUEZADA MD [...] Ot I25. 10 ATHSCL HEART DISEASE OF [place] CORONARY 12/06/2017 GARO QUEZADA MD Ot I25. 2 OLD MYOCARDIAL INFARCTION 12/06/2017 GARO QUEZADA MD Ot Z51. 11 ENCOUNTER FOR ANTINEOPLASTIC CHEMOTHERAP 12/06/2017 GARO QUEZADA MD Ot Z79.899 OTHER LEAD IOS DEVELOPER (CURRENT) DRUG THERAPY 12/06/2017 GARO QUEZADA MD Ot Z93. 3 COLOSTOMY STATUS 12/25/2017 GARO QUEZADA MD Ot C34. 11 MALIGNANT NEOPLASM OF UPPER LOBE, RIGHT 12/25/2017 GARO QUEZADA MD Ot F17.210 NICOTINE DEPENDENCE, CIGARETTES, UNCOMPL 12/25/2017 GARO QUEZADA MD Ot G40.909 EPILEPSY, UNSP, NOT INTRACTABLE, WITHOUT 12/25/2017 GARO QUEZADA MD Ot I25. 10 ATHSCL HEART DISEASE OF [place] CORONARY 12/25/2017 GARO QUEZADA MD Ot I25. 2 OLD MYOCARDIAL INFARCTION 12/25/2017 GARO QUEZADA MD Ot Z51. 11 ENCOUNTER FOR ANTINEOPLASTIC CHEMOTHERAP 12/25/2017 GARO QUEZADA MD Ot Z79.899 OTHER PRISON (CURRENT) DRUG THERAPY 01/17/2018 GARO QUEZADA MD Ot C34. 11 MALIGNANT NEOPLASM OF UPPER LOBE, RIGHT 01/17/2018 GARO QUEZADA MD Ot F17.210 NICOTINE DEPENDENCE, CIGARETTES, UNCOMPL 01/17/2018 GARO QUEZADA MD Ot G40.909 EPILEPSY, UNSP, NOT INTRACTABLE, WITHOUT 01/17/2018 GARO QUEZADA MD Ot I25. 10 ATHSCL HEART DISEASE OF [place] CORONARY 01/17/2018 GARO QUEZADA MD Ot I25. 2 OLD MYOCARDIAL INFARCTION 01/17/2018 GARO QUEZADA MD Ot Z51. 11 ENCOUNTER FOR ANTINEOPLASTIC CHEMOTHERAP 01/17/2018 GARO QUEZADA MD Ot Z79.899 OTHER PRISON (CURRENT) DRUG THERAPY 01/22/2018 GARO QUEZADA MD Ot C34. 11 MALIGNANT NEOPLASM OF UPPER LOBE, RIGHT 01/22/2018 GARO QUEZADA MD Ot F17.210 NICOTINE DEPENDENCE, CIGARETTES, UNCOMPL 01/22/2018 GARO QUEZADA MD Ot G40.909 EPILEPSY, UNSP, NOT INTRACTABLE, WITHOUT 01/22/2018 GARO QUEZADA MD Ot I25. 10 ATHSCL HEART DISEASE OF [place] CORONARY 01/22/2018 GARO QUEZADA MD Ot I25. 2 OLD MYOCARDIAL INFARCTION 01/22/2018 GARO QUEZADA MD Ot Z51. 11 ENCOUNTER FOR ANTINEOPLASTIC CHEMOTHERAP 01/22/2018 GARO QUEZADA MD Ot Z79.899 OTHER LEAD IOS DEVELOPER (CURRENT) DRUG THERAPY 01/22/2018 MIGUELANGEL, BOBAN N Ot C34.11 MALIGNANT NEOPLASM OF UPPER LOBE, RIGHT 01/22/2018 MIGUELANGEL, BOBAN N Ot F17.210 NICOTINE DEPENDENCE, CIGARETTES, UNCOMPL 01/22/2018 MIGUELANGEL, BOBAN N Ot G40.909 EPILEPSY, UNSP, NOT INTRACTABLE, WITHOUT 01/22/2018 MIGUELANGEL, BOBAN N Ot I25.10 ATHSCL HEART DISEASE OF [place] CORONARY 01/22/2018 MIGUELANGEL, BOBAN N Ot I25.2 OLD MYOCARDIAL INFARCTION 01/22/2018 MIGUELANGEL, BOBAN N Ot Z51.11 ENCOUNTER FOR ANTINEOPLASTIC CHEMOTHERAP 01/22/2018 MIGUELANGEL, BOBAN N Ot Z79.899 OTHER LEAD IOS DEVELOPER (CURRENT) DRUG THERAPY 01/23/2018 MIGUELANGEL, BOBAN N Ot C34.11 MALIGNANT NEOPLASM OF UPPER LOBE, RIGHT 01/23/2018 MIGUELANGEL, BOBAN N Ot F17.210 NICOTINE DEPENDENCE, CIGARETTES, UNCOMPL 01/23/2018 MIGUELANGEL, BOBAN N Ot G40.909 EPILEPSY, UNSP, NOT INTRACTABLE, WITHOUT 01/23/2018 MIGUELANGEL, BOBAN N Ot I25.10 ATHSCL HEART DISEASE OF [place] CORONARY 01/23/2018 MIGUELANGEL, BOBAN N Ot I25.2 OLD MYOCARDIAL INFARCTION 01/23/2018 MIGUELANGEL, BOBAN N Ot Z51.11 ENCOUNTER FOR ANTINEOPLASTIC CHEMOTHERAP 01/23/2018 MIGUELANGEL, BOBAN N Ot Z79.899 OTHER PRISON (CURRENT) DRUG THERAPY 02/20/2018 MIGUELANGEL, BOBAN N Ot C34.11 MALIGNANT NEOPLASM OF UPPER LOBE, RIGHT 02/20/2018 MIGUELANGEL, BOBAN N Ot F17.210 NICOTINE DEPENDENCE, CIGARETTES, UNCOMPL 02/20/2018 MIGUELANGEL, BOBAN N Ot G40.909 EPILEPSY, UNSP, NOT INTRACTABLE, WITHOUT 02/20/2018 MIGUELANGEL, BOBAN N Ot I25.10 ATHSCL HEART DISEASE OF [place] CORONARY 02/20/2018 MIGUELANGEL, BOBAN N Ot I25.2 OLD MYOCARDIAL INFARCTION 02/20/2018 MIGUELANGEL, BOBAN N Ot Z51.11 ENCOUNTER FOR ANTINEOPLASTIC CHEMOTHERAP 02/20/2018 MIGUELANGEL, BOBAN N Ot Z79.899 OTHER LEAD IOS DEVELOPER (CURRENT) DRUG THERAPY 02/20/2018 MIGUELANGEL, BOBAN N Ot C34.11 MALIGNANT NEOPLASM OF UPPER LOBE, RIGHT 02/20/2018 MIGUELANGEL, BOBAN N Ot F17.210 NICOTINE DEPENDENCE, CIGARETTES, UNCOMPL 02/20/2018 MIGUELANGEL, BOBAN N Ot G40.909 EPILEPSY, UNSP, NOT INTRACTABLE, WITHOUT 02/20/2018 MIGUELANGEL, BOBAN N Ot I25.10 ATHSCL HEART DISEASE OF [place] CORONARY 02/20/2018 MIGUELANGEL, BOBAN N Ot I25.2 OLD MYOCARDIAL INFARCTION 02/20/2018 MIGUELANGEL, BOBAN N Ot Z51.11 ENCOUNTER FOR ANTINEOPLASTIC CHEMOTHERAP 02/20/2018 MIGUELANGEL, BOBAN N Ot Z79.899 OTHER PRISON (CURRENT) DRUG THERAPY 02/25/2018 MIGUELANGEL, BOBAN N Ot C34.11 MALIGNANT NEOPLASM OF UPPER LOBE, RIGHT 02/25/2018 MIGUELANGEL, BOBAN N Ot F17.210 NICOTINE DEPENDENCE, CIGARETTES, UNCOMPL 02/25/2018 MIGUELANGEL, BOBAN N Ot G40.909 EPILEPSY, UNSP, NOT INTRACTABLE, WITHOUT 02/25/2018 MIGUELANGEL, BOBAN N Ot I25.10 ATHSCL HEART DISEASE OF [place] CORONARY 02/25/2018 MIGUELANGEL, BOBAN N Ot I25.2 OLD MYOCARDIAL INFARCTION 02/25/2018 MIGUELANGEL, BOBAN N Ot Z51.11 ENCOUNTER FOR ANTINEOPLASTIC CHEMOTHERAP 02/25/2018 MIGUELANGEL, BOBAN N Ot Z79.899 OTHER PRISON (CURRENT) DRUG THERAPY 03/27/2018 MIGUELANGEL, BOBAN N Ot C34.11 MALIGNANT NEOPLASM OF UPPER LOBE, RIGHT 03/27/2018 MIGUELANGEL, BOBAN N Ot F17.210 NICOTINE DEPENDENCE, CIGARETTES, UNCOMPL 03/27/2018 MIGUELANGEL, BOBAN N Ot G40.909 EPILEPSY, UNSP, NOT INTRACTABLE, WITHOUT 03/27/2018 VALENTIN MEANS Ot I25.10 ATHSCL HEART DISEASE OF [place] CORONARY 03/27/2018 VALENTIN MEANS Ot I25.2 OLD MYOCARDIAL INFARCTION 03/27/2018 VALENTIN MEANS Ot Z51.11 ENCOUNTER FOR ANTINEOPLASTIC CHEMOTHERAP 03/27/2018 VALENTIN MEANS Ot Z79.899 OTHER PRISON (CURRENT) DRUG THERAPY 04/04/2018 Ot C34.11 MAL [...] Ot I25. 10 ATHSCL HEART DISEASE OF [place] CORONARY 04/23/2018 GARO QUEZADA MD Ot I25. 2 OLD MYOCARDIAL INFARCTION 04/23/2018 GARO QUEZADA MD Ot Z79. 82 PRISON (CURRENT) USE OF ASPIRIN 04/23/2018 GAOR QUEZADA MD Ot Z79.899 OTHER PRISON (CURRENT) DRUG THERAPY 04/23/2018 GARO QUEZADA MD [...] Ot I25. 10 ATHSCL HEART DISEASE OF [place] CORONARY 04/26/2018 GARO QUEZADA MD Ot I25. 2 OLD MYOCARDIAL INFARCTION 04/26/2018 GARO QUEZADA MD Ot Z79. 82 PRISON (CURRENT) USE OF ASPIRIN 04/26/2018 GARO QUEZADA MD Ot Z79.899 OTHER PRISON (CURRENT) DRUG THERAPY 04/26/2018 GARO QUEZADA MD, [...] Ot I25. 10 ATHSCL HEART DISEASE OF [place] CORONARY 05/21/2018 GARO QUEZADA MD Ot I25. 2 OLD MYOCARDIAL INFARCTION 05/21/2018 GARO QUEZADA MD Ot Z51. 11 ENCOUNTER FOR ANTINEOPLASTIC CHEMOTHERAP 05/21/2018 GARO QUEZADA MD Ot Z79. 82 LEAD IOS DEVELOPER (CURRENT) USE OF ASPIRIN 05/21/2018 GARO QUEZADA MD Ot Z79.899 OTHER PRISON (CURRENT) DRUG THERAPY 05/21/2018 GARO QUEZADA MD [...] N Ot I25.10 ATHSCL HEART DISEASE OF [place] CORONARY 05/21/2018 MIGUELANGEL BOBAN N Ot I25.2 OLD MYOCARDIAL INFARCTION 05/21/2018 MIGUELANGEL BOBAN N Ot Z79.82 PRISON (CURRENT) USE OF ASPIRIN 05/21/2018 MIGUELANGEL, BOBAN N Ot Z79.899 OTHER PRISON (CURRENT) DRUG THERAPY 05/21/2018 MIGUELANGEL, BOBAN N [...] N Ot I25.10 ATHSCL HEART DISEASE OF [place] CORONARY 05/22/2018 MIGUELANGEL BOBAN N Ot I25.2 OLD MYOCARDIAL INFARCTION 05/22/2018 MIGUELANGEL BOBAN N Ot Z79.82 PRISON (CURRENT) USE OF ASPIRIN 05/22/2018 MIGUELANGEL, BOBAN N Ot Z79.899 OTHER LEAD IOS DEVELOPER (CURRENT) DRUG THERAPY 05/22/2018 MIGUELANGEL BOBAN N [...] MEANS Ot I25.10 ATHSCL HEART DISEASE OF [place] CORONARY 06/06/2018 VALENTIN MEANS Ot I25.2 OLD MYOCARDIAL INFARCTION 06/06/2018 VALENTIN MEANS Ot Z51.11 ENCOUNTER FOR ANTINEOPLASTIC CHEMOTHERAP 06/06/2018 VALENTIN MEANS Ot Z79.82 LEAD IOS DEVELOPER (CURRENT) USE OF ASPIRIN 06/06/2018 VALENTIN MEANS Ot Z79.899 OTHER PRISON (CURRENT) DRUG THERAPY 06/06/2018 VALENTIN MEANS Ot Z93.3 COLOSTOMY STATUS 06/15/2018 ERMIAS ROBLESP Ot C34.11 MALIGNANT NEOPLASM OF UPPER LOBE, RIGHT 06/15/2018 ERMIAS ROBLES DOCTOR ASSISTANT Ot C44.702 UNSP MALIGNANT NEOPLASM SKIN/ RIGHT LOWE 06/15/2018 ERMIAS ROBLES DOCTOR ASSISTANT Ot C79.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 06/15/2018 ERMIAS ROBLESP Ot 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 10 ATHSCL HEART DISEASE OF [place] CORONARY 06/19/2018 GARO QUEZADA MD, Ot I25. 2 OLD MYOCARDIAL INFARCTION 06/19/2018 GARO QUEZADA MD, Ot Z51. 11 ENCOUNTER FOR ANTINEOPLASTIC CHEMOTHERAP 06/19/2018 GARO QUEZADA MD, Ot Z79. 82 LEAD IOS DEVELOPER (CURRENT) USE OF ASPIRIN 06/19/2018 GARO QUEZADA MD, Ot Z79.899 OTHER PRISON (CURRENT) DRUG THERAPY 06/19/2018 GARO QUEZADA MD, [...] Ot I25. 10 ATHSCL HEART DISEASE OF [place] CORONARY 07/13/2018 GARO QUEZADA MD, Ot I25. 2 OLD MYOCARDIAL INFARCTION 07/13/2018 GARO QUEZADA MD, Ot Z51. 11 ENCOUNTER FOR ANTINEOPLASTIC CHEMOTHERAP 07/13/2018 GARO QUEZADA MD Ot Z79. 82 PRISON (CURRENT) USE OF ASPIRIN 07/13/2018 GARO QUEZADA MD Ot Z79.899 OTHER LEAD IOS DEVELOPER (CURRENT) DRUG THERAPY 07/13/2018 GARO QUEZADA MD [...] Ot I25. 10 ATHSCL HEART DISEASE OF [place] CORONARY 07/17/2018 GARO QUEZADA MD Ot I25. 2 OLD MYOCARDIAL INFARCTION 07/17/2018 GARO QUEZADA MD Ot Z51. 11 ENCOUNTER FOR ANTINEOPLASTIC CHEMOTHERAP 07/17/2018 GARO QUEZADA MD Ot Z79. 82 PRISON (CURRENT) USE OF ASPIRIN 07/17/2018 GARO QUEZADA MD Ot Z79.899 OTHER LEAD IOS DEVELOPER (CURRENT) DRUG THERAPY 07/17/2018 GARO QUEZADA MD [...] Ot I25. 10 ATHSCL HEART DISEASE OF [place] CORONARY 07/27/2018 GARO QUEZADA MD, Ot I25. 2 OLD MYOCARDIAL INFARCTION 07/27/2018 GARO QUEZADA MD, Ot Z51. 11 ENCOUNTER FOR ANTINEOPLASTIC CHEMOTHERAP 07/27/2018 GARO QUEZADA MD, Ot Z79. 82 PRISON (CURRENT) USE OF ASPIRIN 07/27/2018 GARO QEUZADA MD, Ot Z79.899 OTHER PRISON (CURRENT) DRUG THERAPY 07/27/2018 GARO QUEZADA MD, [...] Ot I25. 10 ATHSCL HEART DISEASE OF [place] CORONARY 08/14/2018 GARO QUEZADA MD Ot I25. 2 OLD MYOCARDIAL INFARCTION 08/14/2018 GARO QUEZADA MD, Ot Z51. 11 ENCOUNTER FOR ANTINEOPLASTIC CHEMOTHERAP 08/14/2018 GARO QUEZADA MD, Ot Z79. 82 LEAD IOS DEVELOPER (CURRENT) USE OF ASPIRIN 08/14/2018 GARO QUEZADA MD, Ot Z79.899 OTHER PRISON (CURRENT) DRUG THERAPY 08/14/2018 GARO QUEZADA MD [...] EPILEPSY, UNSP, NOT INTRACTABLE, WITHOUT 09/11/2018 GARO QUEAZDA MD Ot I25. 10 ATHSCL HEART DISEASE OF [place] CORONARY 09/11/2018 GARO QUEZADA MD Ot I25. 2 OLD MYOCARDIAL INFARCTION 09/11/2018 GARO QUEZADA MD Ot Z51. 11 ENCOUNTER FOR ANTINEOPLASTIC CHEMOTHERAP 09/11/2018 GARO QUEZADA MD, Ot Z79. 82 LEAD IOS DEVELOPER (CURRENT) USE OF ASPIRIN 09/11/2018 GARO QUEZADA MD, Ot Z79.899 OTHER PRISON (CURRENT) DRUG THERAPY 09/11/2018 GARO QUEZADA MD, [...] Ot I25. 10 ATHSCL HEART DISEASE OF [place] CORONARY 09/17/2018 GARO QUEZADA MD Ot I25. 2 OLD MYOCARDIAL INFARCTION 09/17/2018 GARO QUEZADA MD Ot Z51. 11 ENCOUNTER FOR ANTINEOPLASTIC CHEMOTHERAP 09/17/2018 GARO QUEZADA MD Ot Z79. 82 LEAD IOS DEVELOPER (CURRENT) USE OF ASPIRIN 09/17/2018 GARO QUEZADA MD Ot Z79.899 OTHER LEAD IOS DEVELOPER (CURRENT) DRUG THERAPY 09/17/2018 GARO QUEZADA MD [...] Ot I25. 10 ATHSCL HEART DISEASE OF [place] CORONARY 09/18/2018 GARO QUEZADA MD, Ot I25. 2 OLD MYOCARDIAL INFARCTION 09/18/2018 GARO QUEZADA MD, Ot Z51. 11 ENCOUNTER FOR ANTINEOPLASTIC CHEMOTHERAP 09/18/2018 GARO QUEZADA MD, Ot Z79. 82 PRISON (CURRENT) USE OF ASPIRIN 09/18/2018 GARO QUEZADA MD, Ot Z79.899 OTHER PRISON (CURRENT) DRUG THERAPY 09/18/2018 GARO QUEZADA MD [...] Ot I25. 10 ATHSCL HEART DISEASE OF [place] CORONARY 09/18/2018 GARO QUEZADA MD, Ot I25. 2 OLD MYOCARDIAL INFARCTION 09/18/2018 GARO QUEZADA MD, Ot Z51. 11 ENCOUNTER FOR ANTINEOPLASTIC CHEMOTHERAP 09/18/2018 GARO QUEZADA MD, Ot Z79. 82 PRISON (CURRENT) USE OF ASPIRIN 09/18/2018 GARO QUEZADA MD, Ot Z79.899 OTHER PRISON (CURRENT) DRUG THERAPY 09/18/2018 GARO QUEZADA MD [...] Ot I25. 10 ATHSCL HEART DISEASE OF [place] CORONARY 10/09/2018 GARO QUEZADA MD, Ot I25. 2 OLD MYOCARDIAL INFARCTION 10/09/2018 GARO QUEZADA MD Ot Z51. 11 ENCOUNTER FOR ANTINEOPLASTIC CHEMOTHERAP 10/09/2018 GARO QUEZADA MD Ot Z79. 82 LEAD IOS DEVELOPER (CURRENT) USE OF ASPIRIN 10/09/2018 GARO QUEZADA MD, Ot Z79.899 OTHER PRISON (CURRENT) DRUG THERAPY 10/09/2018 GARO QUEZADA MD [...] Ot I25. 10 ATHSCL HEART DISEASE OF [place] CORONARY 11/13/2018 GARO QUEZADA MD Ot I25. 2 OLD MYOCARDIAL INFARCTION 11/13/2018 GARO QUEZADA MD, Ot Z51. 11 ENCOUNTER FOR ANTINEOPLASTIC CHEMOTHERAP 11/13/2018 GARO QUEZADA MD, Ot Z79. 82 PRISON (CURRENT) USE OF ASPIRIN 11/13/2018 GARO QUEZADA MD, Ot Z79.899 OTHER LEAD IOS DEVELOPER (CURRENT) DRUG THERAPY 11/13/2018 GARO QUEZADA MD, [...] Ot I25. 10 ATHSCL HEART DISEASE OF [place] CORONARY 11/23/2018 GARO QUEZADA MD, Ot I25. 2 OLD MYOCARDIAL INFARCTION 11/23/2018 GARO QUEZADA MD, Ot Z51. 11 ENCOUNTER FOR ANTINEOPLASTIC CHEMOTHERAP 11/23/2018 GARO QUEZADA MD, Ot Z79. 82 PRISON (CURRENT) USE OF ASPIRIN 11/23/2018 GARO QUEZADA MD, Ot Z79.899 OTHER LEAD IOS DEVELOPER (CURRENT) DRUG THERAPY 11/23/2018 GARO QUEZADA MD, Ot Z93. 3 COLOSTOMY STATUS 01/01/2019 GARO QUEZADA MD, Ot C34. 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 71 SECONDARY MALIGNANT NEOPLASM OF RIGHT AD 01/01/2019 GARO QUEZADA MD Ot E83. 42 HYPOMAGNESEMIA 01/01/2019 GAOR QUEZADA MD Ot F17.210 NICOTINE DEPENDENCE, CIGARETTES, UNCOMPL 01/01/2019 GARO QUEZADA MD, Ot G40.909 EPILEPSY, UNSP, NOT INTRACTABLE, WITHOUT 01/01/2019 GARO QUEZADA MD, Ot I25. 10 ATHSCL HEART DISEASE OF [place] CORONARY 01/01/2019 GARO QUEZADA MD, Ot I25. 2 OLD MYOCARDIAL INFARCTION 01/01/2019 GARO QUEZADA MD, Ot Z51. 11 ENCOUNTER FOR ANTINEOPLASTIC CHEMOTHERAP 01/01/2019 GARO QUEZADA MD, Ot Z79. 82 LEAD IOS DEVELOPER (CURRENT) USE OF ASPIRIN 01/01/2019 GARO QUEZADA MD, Ot Z79.899 OTHER PRISON (CURRENT) DRUG THERAPY 01/01/2019 GARO QUEZADA MD, [...] Ot I25. 10 ATHSCL HEART DISEASE OF [place] CORONARY 01/07/2019 GARO QUEZADA MD Ot I25. 2 OLD MYOCARDIAL INFARCTION 01/07/2019 GARO QUEZADA MD, Ot Z51. 11 ENCOUNTER FOR ANTINEOPLASTIC CHEMOTHERAP 01/07/2019 GARO QUEZADA MD, Ot Z79. 82 PRISON (CURRENT) USE OF ASPIRIN 01/07/2019 GARO QUEZADA MD, Ot Z79.899 OTHER LEAD IOS DEVELOPER (CURRENT) DRUG THERAPY 01/07/2019 GARO QUEZADA MD, [...] Ot F17.210 NICOTINE DEPENDENCE, CIGARETTES, UNCOMPL 01/10/2019 AGRO QUEZADA MD Ot G40.909 EPILEPSY, UNSP, NOT INTRACTABLE, WITHOUT 01/10/2019 GARO QUEZADA MD, Ot I25. 10 ATHSCL HEART DISEASE OF [place] CORONARY 01/10/2019 GARO QUEZADA MD, Ot I25. 2 OLD MYOCARDIAL INFARCTION 01/10/2019 GARO QUEZADA MD, Ot Z51. 11 ENCOUNTER FOR ANTINEOPLASTIC CHEMOTHERAP 01/10/2019 GARO QUEZADA MD Ot Z79. 82 LEAD IOS DEVELOPER (CURRENT) USE OF ASPIRIN 01/10/2019 GARO QUEZADA MD Ot Z79.899 OTHER LEAD IOS DEVELOPER (CURRENT) DRUG THERAPY 01/10/2019 GARO QUEZADA MD Ot Z93. 3 COLOSTOMY STATUS 01/15/2019 VALENTIN MEANS Ot C34.11 MALIGNANT NEOPLASM OF UPPER LOBE, RIGHT 01/15/2019 VALENTIN MEANS Ot F17.210 NICOTINE DEPENDENCE, CIGARETTES, UNCOMPL 01/15/2019 VALENTIN MEANS Ot G40.909 EPILEPSY, UNSP, NOT INTRACTABLE, WITHOUT 01/15/2019 VALENTIN MEANS Ot I25.10 ATHSCL HEART DISEASE OF [place] CORONARY 01/15/2019 VALENTIN MEANS Ot I25.2 OLD MYOCARDIAL INFARCTION 01/15/2019 VALENTIN MEANS Ot I73.89 OTHER SPECIFIED PERIPHERAL VASCULAR DISE 01/15/2019 VALENTIN MEANS Ot Z51.11 ENCOUNTER FOR ANTINEOPLASTIC CHEMOTHERAP 01/15/2019 VALENTIN MEANS Ot Z79.899 OTHER LEAD IOS DEVELOPER (CURRENT) DRUG THERAPY 01/15/2019 GARO QUEZADA MD, [...] Ot I25. 10 ATHSCL HEART DISEASE OF [place] CORONARY 01/15/2019 GARO QUEZADA MD, Ot I25. 2 OLD MYOCARDIAL INFARCTION 01/15/2019 GARO QUEZADA MD Ot Z51. 11 ENCOUNTER FOR ANTINEOPLASTIC CHEMOTHERAP 01/15/2019 GARO QUEZADA MD Ot Z79. 82 PRISON (CURRENT) USE OF ASPIRIN 01/15/2019 GARO QUEZADA MD, Ot Z79.899 OTHER PRISON (CURRENT) DRUG THERAPY 01/15/2019 GARO QUEZADA MD [...] Ot I25. 10 ATHSCL HEART DISEASE OF [place] CORONARY 02/14/2019 GARO QUEZADA MD, Ot I25. 2 OLD MYOCARDIAL INFARCTION 02/14/2019 GARO QUEZADA MD Ot Z51. 11 ENCOUNTER FOR ANTINEOPLASTIC CHEMOTHERAP 02/14/2019 GARO QUEAZDA MD, Ot Z79. 82 LEAD IOS DEVELOPER (CURRENT) USE OF ASPIRIN 02/14/2019 GARO QUEZADA MD, Ot Z79.899 OTHER PRISON (CURRENT) DRUG THERAPY 02/14/2019 GARO QUEZADA MD, [...] Ot I25. 10 ATHSCL HEART DISEASE OF [place] CORONARY 04/29/2019 GARO QUEZADA MD, Ot I25. 2 OLD MYOCARDIAL INFARCTION 04/29/2019 GARO QUEZADA MD, Ot Z79. 82 PRISON (CURRENT) USE OF ASPIRIN 04/29/2019 GARO QUEZADA MD, Ot Z79.899 OTHER LEAD IOS DEVELOPER (CURRENT) DRUG THERAPY 04/29/2019 GARO QUEZADA MD, [...] Ot I25. 10 ATHSCL HEART DISEASE OF [place] CORONARY 04/30/2019 GARO QUEZADA MD, Ot I25. 2 OLD MYOCARDIAL INFARCTION 04/30/2019 GARO QUEZADA MD, Ot Z79. 82 LEAD IOS DEVELOPER (CURRENT) USE OF ASPIRIN 04/30/2019 GARO QUEZADA MD, Ot Z79.899 OTHER LEAD IOS DEVELOPER (CURRENT) DRUG THERAPY 04/30/2019 GARO QUEZADA MD, [...] Ot I25. 10 ATHSCL HEART DISEASE OF [place] CORONARY 04/30/2019 GARO QUEZADA MD Ot I25. 2 OLD MYOCARDIAL INFARCTION 04/30/2019 GARO QUEZADA MD, Ot Z79. 82 PRISON (CURRENT) USE OF ASPIRIN 04/30/2019 GARO QUEZADA MD Ot Z79.899 OTHER PRISON (CURRENT) DRUG THERAPY 04/30/2019 GARO QUEZADA MD, [...] Ot I25. 10 ATHSCL HEART DISEASE OF [place] CORONARY 05/05/2019 GARO QUEZADA MD, Ot I25. 2 OLD MYOCARDIAL INFARCTION 05/05/2019 GARO QUEZADA MD, Ot Z79. 82 LEAD IOS DEVELOPER (CURRENT) USE OF ASPIRIN 05/05/2019 GARO QUEZADA MD, Ot Z79.899 OTHER LEAD IOS DEVELOPER (CURRENT) DRUG THERAPY 05/05/2019 GARO QUEZADA MD, Ot Z93. 3 COLOSTOMY STATUS 05/06/2019 IJM OTT MD, Ot C34.11 MALIGNANT NEOPLASM OF [...] MEANS Ot I25.10 ATHSCL HEART DISEASE OF [place] CORONARY 05/06/2019 VALENITN MEANS Ot I25.2 OLD MYOCARDIAL INFARCTION 05/06/2019 VALENTIN MEANS Ot I73.89 OTHER SPECIFIED PERIPHERAL VASCULAR DISE 05/06/2019 VALENTIN MEANS Ot Z51.11 ENCOUNTER FOR ANTINEOPLASTIC CHEMOTHERAP 05/06/2019 VALENTIN MEANS Ot Z79.899 OTHER PRISON (CURRENT) DRUG THERAPY 05/06/2019 GARO QUEZADA MD [...] Ot I25. 10 ATHSCL HEART DISEASE OF [place] CORONARY 05/06/2019 GARO QUEZADA MD, Ot I25. 2 OLD MYOCARDIAL INFARCTION 05/06/2019 GARO QUEZADA MD Ot Z79. 82 LEAD IOS DEVELOPER (CURRENT) USE OF ASPIRIN 05/06/2019 GARO QUEZADA MD Ot Z79.899 OTHER LEAD IOS DEVELOPER (CURRENT) DRUG THERAPY 05/06/2019 GARO QUEZADA MD [...] Ot I25. 10 ATHSCL HEART DISEASE OF [place] CORONARY 05/16/2019 GARO QUEZADA MD Ot I25. 2 OLD MYOCARDIAL INFARCTION 05/16/2019 GARO QUEZADA MD Ot Z79. 82 PRISON (CURRENT) USE OF ASPIRIN 05/16/2019 GARO QUEZADA MD Ot Z79.899 OTHER PRISON (CURRENT) DRUG THERAPY 05/16/2019 GARO QUEZADA MD [...] Ot I25. 10 ATHSCL HEART DISEASE OF [place] CORONARY 07/29/2019 GARO QUEZADA MD Ot I25. 2 OLD MYOCARDIAL INFARCTION 07/29/2019 GARO QUEZADA MD Ot Z79. 82 LEAD IOS DEVELOPER (CURRENT) USE OF ASPIRIN 07/29/2019 GARO QUEZADA MD Ot Z79.899 OTHER PRISON (CURRENT) DRUG THERAPY 07/29/2019 GARO QUEZADA MD [...] Ot I25. 10 ATHSCL HEART DISEASE OF [place] CORONARY 08/01/2019 GARO QUEZADA MD Ot I25. 2 OLD MYOCARDIAL INFARCTION 08/01/2019 GARO QUEZADA MD Ot Z79. 82 PRISON (CURRENT) USE OF ASPIRIN 08/01/2019 GARO QUEZADA MD, Ot Z79.899 OTHER LEAD IOS DEVELOPER (CURRENT) DRUG THERAPY 08/01/2019 GARO QUEZADA MD [...] Ot I25. 10 ATHSCL HEART DISEASE OF [place] CORONARY 08/27/2019 GARO QUEZADA MD, Ot I25. 2 OLD MYOCARDIAL INFARCTION 08/27/2019 GARO QUEZADA MD, Ot Z79. 82 LEAD IOS DEVELOPER (CURRENT) USE OF ASPIRIN 08/27/2019 GARO QUEZADA MD Ot Z79.899 OTHER PRISON (CURRENT) DRUG THERAPY 08/27/2019 GARO QUEZADA MD, [...] Ot I25. 10 ATHSCL HEART DISEASE OF [place] CORONARY 08/27/2019 GARO QUEZADA MD Ot I25. 2 OLD MYOCARDIAL INFARCTION 08/27/2019 GARO QUEZADA MD, Ot Z79. 82 PRISON (CURRENT) USE OF ASPIRIN 08/27/2019 GARO QUEZADA MD Ot Z79.899 OTHER LEAD IOS DEVELOPER (CURRENT) DRUG THERAPY 08/27/2019 GARO QUEZADA MD Ot Z93. 3 COLOSTOMY STATUS 08/30/2019 GARO QUEZADA MD, Ot C34. 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 42 HYPOMAGNESEMIA 08/30/2019 GRAO QUEZADA MD Ot F17.210 NICOTINE DEPENDENCE, CIGARETTES, UNCOMPL 08/30/2019 GARO QUEZADA MD, Ot G40.909 EPILEPSY, UNSP, NOT INTRACTABLE, WITHOUT 08/30/2019 GARO QUEZADA MD Ot I25. 10 ATHSCL HEART DISEASE OF [place] CORONARY 08/30/2019 GARO QUEZADA MD Ot I25. 2 OLD MYOCARDIAL INFARCTION 08/30/2019 GARO QUEZADA MD Ot Z79. 82 LEAD IOS DEVELOPER (CURRENT) USE OF ASPIRIN 08/30/2019 GARO QUEZADA MD Ot Z79.899 OTHER PRISON (CURRENT) DRUG THERAPY 08/30/2019 GARO QUEZADA MD [...] RHIANNON Ot I25.10 ATHSCL HEART DISEASE OF [place] CORONARY 09/04/2019 DHALIWAL DO, RHIANNON Ot I25.2 [...] Ot I25. 10 ATHSCL HEART DISEASE OF [place] CORONARY 11/25/2019 GARO QUEZADA MD Ot I25. 2 OLD MYOCARDIAL INFARCTION 11/25/2019 GARO QUEZADA MD Ot Z79. 82 PRISON (CURRENT) USE OF ASPIRIN 11/25/2019 GARO QUEZADA MD Ot Z79.899 OTHER PRISON (CURRENT) DRUG THERAPY 11/25/2019 GARO QUEZADA MD [...] Ot I25. 10 ATHSCL HEART DISEASE OF [place] CORONARY 11/26/2019 GARO QUEZADA MD Ot I25. 2 OLD MYOCARDIAL INFARCTION 11/26/2019 GARO QUEZADA MD Ot Z79. 82 PRISON (CURRENT) USE OF ASPIRIN 11/26/2019 GARO QUEZADA MD Ot Z79.899 OTHER PRISON (CURRENT) DRUG THERAPY 11/26/2019 GARO QUEZADA MD [...] Ot I25. 10 ATHSCL HEART DISEASE OF [place] CORONARY 12/01/2019 GARO QUEZADA MD, Ot I25. 2 OLD MYOCARDIAL INFARCTION 12/01/2019 GARO QUEZADA MD, Ot Z79. 82 LEAD IOS DEVELOPER (CURRENT) USE OF ASPIRIN 12/01/2019 GARO QUEZADA MD, Ot Z79.899 OTHER PRISON (CURRENT) DRUG THERAPY 12/01/2019 GARO QUEZADA MD, [...] Ot I25. 10 ATHSCL HEART DISEASE OF [place] CORONARY 12/09/2019 GARO QUEZADA MD Ot I25. 2 OLD MYOCARDIAL INFARCTION 12/09/2019 GARO QUEZADA MD, Ot Z79. 82 PRISON (CURRENT) USE OF ASPIRIN 12/09/2019 GARO QUEZADA MD, Ot Z79.899 OTHER LEAD IOS DEVELOPER (CURRENT) DRUG THERAPY 12/09/2019 GARO QUEZADA MD, [...] Ot I25. 10 ATHSCL HEART DISEASE OF [place] CORONARY 12/10/2019 GARO QUEZADA MD, Ot I25. 2 OLD MYOCARDIAL INFARCTION 12/10/2019 GARO QUEZADA MD, Ot Z79. 82 LEAD IOS DEVELOPER (CURRENT) USE OF ASPIRIN 12/10/2019 GARO QUEZADA MD, Ot Z79.899 OTHER PRISON (CURRENT) DRUG THERAPY 12/10/2019 GARO QUEZADA MD, [...] Ot I25. 10 ATHSCL HEART DISEASE OF [place] CORONARY 12/13/2019 GARO QUEZADA MD, Ot I25. 2 OLD MYOCARDIAL INFARCTION 12/13/2019 GARO QUEZADA MD, Ot Z79. 82 LEAD IOS DEVELOPER (CURRENT) USE OF ASPIRIN 12/13/2019 GARO QUEZADA MD, Ot Z79.899 OTHER PRISON (CURRENT) DRUG THERAPY 12/13/2019 GARO QUEZADA MD, [...] Ot I25. 10 ATHSCL HEART DISEASE OF [place] CORONARY 01/02/2020 GARO QUEZADA MD, Ot I25. [...] 01/02/2020 GARO QUEZADA MD, Ot Z79. 82 PRISON (CURRENT) USE OF ASPIRIN 01/02/2020 GARO QUEZADA MD, Ot Z79.899 OTHER PRISON (CURRENT) DRUG THERAPY 01/02/2020 GARO QUEZADA MD, [...] 03/06/2020 SERAFIN SINGER MD, Ot Z79.5 2 PRISON (CURRENT) USE OF SYSTEMIC STER 03/06/2020 SERAFIN SINGER MD, Ot Z79.8 2 LEAD IOS DEVELOPER (CURRENT) USE OF ASPIRIN 03/06/2020 SERAFIN SINGER [...] UNSP PLACE IN APARTMENT PLACE 03/08/2020 SERAFIN SINGER MD, Ot Z79.5 2 PRISON (CURRENT) USE OF SYSTEMIC STER 03/08/2020 SERAFIN SINGER MD, Ot Z79.8 2 PRISON (CURRENT) USE OF ASPIRIN 03/08/2020 SERAFIN SINGER [...] Ot I25. 10 ATHSCL HEART DISEASE OF [place] CORONARY 03/09/2020 GARO QUEZADA MD, Ot I25. [...] 03/09/2020 GARO QUEZADA MD, Ot Z79. 82 PRISON (CURRENT) USE OF ASPIRIN 03/09/2020 GARO QUEZADA MD, Ot Z79.899 OTHER LEAD IOS DEVELOPER (CURRENT) DRUG THERAPY 03/09/2020 GARO QUEZADA MD, [...] Ot I25. 10 ATHSCL HEART DISEASE OF [place] CORONARY 03/12/2020 GARO QUEZADA MD, Ot I25. [...] 03/12/2020 GARO QUEZADA MD Ot Z79. 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 03/18/2020 VALENTIN MEANS Ot Z51.11 ENCOUNTER FOR ANTINEOPLASTIC CHEMOTHERAP 03/18/2020 VALENTIN MEANS Ot Z79.899 OTHER PRISON (CURRENT) DRUG THERAPY 03/18/2020 GARO QUEZADA MD, [...] Ot I25.10 ATH SCL HEART DISEASE OF [place] CORONARY 03/18/2020 Ot I25.2 OLD MYOCARDIAL INFARCTION [...] OF [place] 03/18/2020 Ot 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.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 03/18/2020 Ot Z82.0 FAMI [...] NRG Blood microcytes detection by light microscopy [facility] NRG Comprehensive metabolic panel - 09/01/19 06:20 [...] protein measurement (mass/v olume) 5.57 mg/dL 0.00-0.50 Manual absolute plasma cell count - 03/07 10/24 18:25 Blood monocytes/100 leukocytes 6 % NRG Manual blood segmented neutrophils/100 leukocytes 85 % NRG Manual blood lymphocytes/100 leukocytes 9 % NRG Blood erythrocyte morphology finding identification NORMAL NRG PROCALCITONIN (PCT) - 03/19/20 18:25 PROCALCITONIN (PCT) 0.07 ng/mL <0.10 Complete urinalysis with reflex to cultu re - 03/19/20 19:17 Urine color determination YELLOW NRG Urine clarity determination CLEAR NR G Urine pH measurement by test strip 5.5 5-9 Specific gravity of urine by test strip 1.015 1.016-1.022 Urine protein assay by test strip, semi-quantitative TRACE NEGATIVE Urine glucose detection by automated test [...] in urine sediment by light microsco py TRACE NRG Crystals detection in urine sediment by light microsco py PRESENT NRG Casts detection in urine sediment by light microscopy PRESENT NRG Mucus detection in urine sediment by light microscopy NEGATIVE NRG Complete urinalysis with reflex to culture NO NRG Amorphous sediment detection in urine sediment by ligh t microscopy FEW FABIAN URATES NRG Hyaline casts detection in urine sediment by light bev roscopy >50 NRG Other elements identification in urine sediment by lig ht microscopy FEW SPERM NRG Encounters ACCT No. Visit Date/Time Discharge Status Pt. Type Provider Facility Loc./Unit Complaint [id number] 03/18/2020 03:24:00 05:38:00 DIS Emergency BOBBY HUBBARD MD [facility] ER FS ABD PROBLEMS [id number] 03/03/2020 13:00:00 00:01:00 DIS Outpatient GARO QUEZADA MD [facility] ONC [id number] 03/06/2020 19:07:00 22:54:00 DIS Emergency SERAFIN SINGER MD [facility] ER FS FALL [id number] 08/27/2019 13:07:00 00:01:00 DIS Outpatient GARO QUEZADA MD [facility] ONC [id number] 09/01/2019 09:24:00 12:43:00 DIS Inpatient RHIANNON DHALIWAL DO, [facility] 4TH NAUSEA/VOMITING [id number] 04/30/2019 13:37:00 00:01:00 DIS Outpatient GARO QUEZADA MD [facility] ONC [id number] 06/04/2019 12:55:00 23:59:59 CLS Outpatient LINCOLN NAVAS [facility] RAD FS S72.009D [id number] 05/06/2019 12:36:00 23:59:59 CLS Outpatient LINCOLN NAVAS [facility] RAD FS S72.041A [id number] 01/29/2019 11:01:00 00:01:00 DIS Outpatient GARO QUEZADA MD [facility] ONC [id number] 04/22/2019 14:23:00 23:59:59 CLS Outpatient LINCOLN NAVAS [facility] RAD FS M79.605 [id number] 01/15/2019 16:16:00 19:55:00 DIS Emergency SERAFIN SINGER MD [facility] ER FS BP ISSUES, NAUSEA, CHES T PAIN [id number] 01/01/2019 09:27:00 00:01:00 DIS Outpatient GARO QUEZADA MD [facility] ONC [id number] 11/01/2018 11:52:00 23:59:59 CLS Outpatient GARO QUEZADA MD [facility] RAD UNSTABLE BALANCE [id number] 09/11/2018 10:45:00 00:01:00 DIS Outpatient GARO QUEZADA MD [facility] ONC [id number] 06/14/2018 11:03:00 23:59:59 CLS Outpatient ERMIAS ROBLES [facility] CARD LUNG CANCER [id number] 05/21/2018 09:27:00 018 10:00:00 DIS Outpatient VALENTIN MEANS [facility] ONC [id number] 04/23/2018 10:47:00 018 23:59:59 CLS Outpatient GARO QUEZADA MD [facility] ONC [id number] 03/06/2018 10:41:00 018 10:36:00 DIS Outpatient VALENTIN MEANS [facility] ONC [id number] 01/08/2018 13:30:00 018 14:59:00 DIS Outpatient GARO QUEZADA MD [facility] ONC [id number] 11/28/2017 10:48:00 018 00:01:00 DIS Outpatient GARO QUEZADA MD [facility] ONC [id number] 08/09/2017 10:21:00 018 15:29:00 DIS Outpatient JIMY ROBERTSON MD, [facility] ONC [id number] 07/25/2017 10:35:00 018 14:38:00 DIS Outpatient GARO QUEZADA MD [facility] ONC [id number] 07/04/2017 10:34:00 017 23:59:59 CLS Outpatient GARO QUEZADA MD [facility] RAD C34.11 [id number] 05/30/2017 09:31:00 017 15:32:00 DIS Outpatient VALENTIN MEANS [facility] ONC [id number] 05/30/2017 08:09:00 017 23:59:59 CLS Preadmit VALENTIN MEANS [facility] ONC [id number] 05/16/2017 10:40:00 017 08:09:00 DIS Outpatient GARO QUEZADA MD [facility] ONC [id number] 05/02/2017 09:22:00 017 00:01:00 DIS Outpatient DAMIEN ADKINS, GARO [facility] ONC [id number] 03/15/2017 09:09:00 017 23:59:59 CLS Outpatient DAMIEN ADKINS, GARO [facility] RAD BRAIN MASS G93.9 [id number] 02/21/2017 12:11:00 017 00:01:00 DIS Outpatient TRU ADKINS, JIM [facility] ONC [id number] 12/22/2016 13:23:00 017 23:59:59 CLS Outpatient EDA ADKINS, VIVIANA Z [facility] RAD PORT CATHETER MALPOSITI ON IN [id number] 12/22/2016 11:01:00 017 23:59:59 CLS Outpatient TRU ADKINS, JIM [facility] RAD C34.11 LUNG CANCER [id number] 11/15/2016 12:58:00 017 00:01:00 DIS Outpatient TRU ADKINS, JIM [facility] ONC [id number] 11/07/2016 13:25:00 017 23:59:59 CLS Outpatient TRU ADKINS, JIM [facility] RAD METASTASIS TO BRAIN,[place] G CA [id number] 10/27/2016 14:20:00 017 23:59:59 CLS Outpatient TRU ADKINS, JIM [facility] RAD LUNG CA,METASTASIS TO B RAIN [id number] 08/29/2016 12:53:00 017 23:59:59 CLS Outpatient JIM OTT MD [facility] RAD LUNG CA,METASTASIS TO B RAIN [id number] 08/16/2016 12:37:00 017 00:01:00 DIS Outpatient JIM OTT MD [facility] ONC [id number] 04/14/2016 09:30:00 016 10:57:00 DIS Outpatient JIM OTT MD [facility] ONC [id number] 03/07/2016 12:53:00 00:01:00 DIS Outpatient TRU ADKINS, JIM [facility] ONC [id number] 12/28/2015 10:47:00 23:59:59 CLS Preadmit ERMIAS ROBLES [facility] ONC [id number] 03/19/2020 18:39:00 Document Registration [id number] 03/10/2020 00:00:00 Document Registration [id number] 03/20/2018 13:44:00 Document Registration
[2020-03-19] MEDS ORDERED: NS (IVPB) 100 ML ONE (22:28)
[2020-03-19] MEDS ORDERED: PIPERACILLIN/TAZO 4.5 GM VIAL (ZOSYN) IV ONE (22:28)
--- NOTE | 2020-03-19 22:42 | NUR ---
NATALY RITCHIE admitted to room 419-1, with an admitting diagnosis of COLITIS AND CONSTIPATION on 03/19/20 from ER via WHEELCHAIR, accompanied by STAFF.NATALY RITCHIE introduced to surroundings, call light, bed controls, phone, TV, temperature control, lights, meal times, smoking policy, visitor policy, side rail policy, bathrooms and showers. Patient Rights given to patient in the handbook. NATALY RITCHIE verbalizes understanding that [facility] is not responsible for the loss or damage to any personal effects or valuables that are kept in the patients possession during their hospitalization.
[2020-03-19 22:47] VITALS: BP 124/78
[2020-03-19] MEDS ORDERED: PROMETHAZINE INJ 25 MG/ML (PHENERGAN) AMP IV PRN (23:00)
[2020-03-19] MEDS ORDERED: LORazepam INJ 2 MG/ML (ATIVAN) VIAL IV PRN (23:00)
[2020-03-19] MEDS ORDERED: ONDANSETRON 4 MG/2 ML (SDV) Z0FRAN IV PRN (23:00)
[2020-03-19] MEDS: LACTATED RINGERS 1,000 ML IV SCH (23:31)
[2020-03-19] MEDS ORDERED: PHENYTOIN 100 MG (DILANTIN) CAP PO ONE (23:45)
[2020-03-20 00:45] VITALS: BP 105/73
--- NOTE | 2020-03-20 01:02 | NUR ---
DR. DHALIWAL NOTIFIED OF PT BEING A SEPSIS RISK. NO NEW ORDERS RECEIVED. WILL CONTINUE TO MONITOR.
[2020-03-20] MEDS ORDERED: PIPERACILLIN/TAZO 4.5 GM VIAL (ZOSYN) IV ONE (03:55)
[2020-03-20] MEDS ORDERED: NS (IVPB) 100 ML ONE (03:56)
[2020-03-20 04:00] VITALS: BP 131/80
[2020-03-20] MEDS: PIPERACILLIN/TAZO 4.5 GM/NS 100 ML IV SCH ×6 (04:19→20:18)
[2020-03-20 06:28] LABS: BASOPHILS % (AUTO) 0 % (0-10); EOSINOPHILS # (AUTO) 0.1 10^3/uL (0.0-0.3); EOSINOPHILS % (AUTO) 1 % (0-10); HEMATOCRIT 35 % (40-54); HEMOGLOBIN 11.7 G/DL (13.3-17.7); LYMPHOCYTES # (AUTO) 1.5 X 10^3 (1.0-4.0); LYMPHOCYTES % (AUTO) 11 % (12-44); MEAN CORPUSCULAR HEMOGLOBIN 30 PG (25-34); MEAN CORPUSCULAR HGB CONC 34 G/DL (32-36); MEAN CORPUSCULAR VOLUME 89 FL (80-99); MEAN PLATELET VOLUME 8.7 FL (7.4-10.4); MONOCYTES # (AUTO) 1.2 X 10^3 (0.0-1.0); MONOCYTES % (AUTO) 9 % (0-12); NEUTROPHILS # (AUTO) 10.2 X 10^3 (1.8-7.8); NEUTROPHILS % (AUTO) 79 % (42-75); PLATELET COUNT 418 10^3/uL (130-400); RED CELL DISTRIBUTION WIDTH 14.2 % (10.0-14.5)
[2020-03-20] MEDS: fentaNYL INJECTION 100 MCG/2 ML AMP IV PRN ×5 (06:45→20:18)
[2020-03-20 06:55] LABS: ALANINE AMINOTRANSFERASE 9 U/L (0-55); ALBUMIN 3.3 GM/DL (3.2-4.5); ALKALINE PHOSPHATASE 220 U/L (40-136); BILIRUBIN,TOTAL 0.2 MG/DL (0.1-1.0); BUN/CREATININE RATIO 12; CALCIUM 8.5 MG/DL (8.5-10.1); CARBON DIOXIDE 25 MMOL/L (21-32); CHLORIDE 103 MMOL/L (98-107); CREATININE SERUM 0.97 MG/DL (0.60-1.30); GFR ESTIMATED > 60; GLUCOSE 86 MG/DL (70-105); POTASSIUM 3.2 MMOL/L (3.6-5.0); SODIUM 138 MMOL/L (135-145)
[2020-03-20 08:00] VITALS: BP 103/69
[2020-03-20] MEDS: ENOXAPARIN 40 MG/0.4 ML (LOVENOX) SYR SC SCH (08:41)
[2020-03-20] MEDS: LACTATED RINGERS 1,000 ML IV SCH ×3 (08:41→20:21)
[2020-03-20] MEDS: FAMOTIDINE 20MG/2ML IV (PEPCID) IV SCH ×2 (08:42→20:18)
--- NOTE | 2020-03-20 09:04 | Consultation - Surgery ---
SARAHSALAZAR MED STUDENT 03/20/20 0904: History of Present Illness History of Present Illness Patient Consulted On(bijan/time) 03/20/20 08:59 Date Seen by Provider: Mar 20, 2020 Time Seen by Provider: 07:20 History of Present Illness Consultatoin for Dr. Del Rosario for colitis and possible obstruction Pt presents with R sided abdominal pain. Pain began monday and has worsened. Claims his last solid meal was monday when he vomited shortly after and has been unable to tolerate solids since. Pt has a colostomy as a result of a bowl perforation secondary to opioid usage. Pt has been diagnosed with throat cancer. Claims he has never had a colonoscopy. Colostomy was cleaned out to try and relieve obstruction when he visited the ED monday. He also has tried miralax with limited relief. Pt denies fever, chills, sob, chest pain. Allergies and Home Medications Allergies Coded Allergies: nitroglycerin (Verified Allergy, Unknown, 04/14/16) morphine (Verified Adverse Reaction, Mild, nausea, 01/15/19) Home Medications Alprazolam 0.5 Mg Tablet, 0.5 MG PO BID PRN for ANXIETY, (Reported) Atorvastatin Calcium 10 Mg Tablet, 10 MG PO HS, (Reported) Ergocalciferol (Vitamin D2) 1,250 Mcg Capsule, 1,250 MCG PO MONDAY, (Reported) Fluoxetine HCl 20 Mg Capsule, 20 MG PO DAILY, (Reported) Gabapentin 300 Mg Capsule, 300 MG PO TID, (Reported) Metoprolol Tartrate 25 Mg Tablet, 25 MG PO BID, (Reported) Mirtazapine 30 Mg Tablet, 15 MG PO HS, (Reported) TAKES OF A 30MG TAB Olanzapine 10 Mg Tablet, 10 MG PO HS, (Reported) Oxycodone HCl 20 Mg Tab.er.12h, 20 MG PO BID, (Reported) Oxycodone HCl/Acetaminophen 1 Each Tablet, 1 EA PO Q6H PRN for PAIN-MODERATE (5- 7), (Reported) Pantoprazole Sodium 40 Mg Tablet.dr, 40 MG PO DAILY, (Reported) Phenytoin Sodium Extended 100 Mg Capsule, 100 MG PO QID, (Reported) Prednisone 50 Mg Tab, 50 MG PO DAILY, (Reported) Sennosides/Docusate Sodium 1 Each Tablet, 1 EACH PO BID, (Reported) Past Qwetivj-Gkpjou-Qtnkzi Hx Patient Social History Alcohol Use: Denies Use Recreational Drug Use: No Type Used: Cigarettes 2nd Hand Smoke Exposure: No Recent Foreign Travel: No Contact w/Someone Who Travel: No Recent Infectious Disease Expo: No Recent Hopitalizations: No Immunizations Up To Date Date of Pneumonia Vaccine: May 11, 2016 Date of Influenza Vaccine: May 02, 2019 Seasonal Allergies Seasonal Allergies: No Surgeries History of Surgeries: Yes (colostomy, port (left), toe amputation) Surgeries: Bowel Surgery, Cardiac Respiratory History of Respiratory Disorde: No Cardiovascular History of Cardiac Disorders: Yes Cardiac Disorders: Coronary Artery Disease, Heart Attack Neurological History of Neurological Disord: Yes Neurological Disorders: Seizure Disorder Genitourinary History of Genitourinary Disor: No Gastrointestinal History of Gastrointestinal Di: Yes (colostomy) Gastrointestinal Disorders: Gastroesophageal Reflux, Gastrointestinal Bleed, Chronic Constipation Musculoskeletal History of Musculoskeletal Dis: Yes Musculoskeletal Disorders: Arthritis Endocrine History of Endocrine Disorders: No HEENT History of HEENT Disorders: No Cancer History of Cancer: Yes (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) Cancer: Lung Psychosocial History of Psychiatric Problem: No Behavioral Health Disorders: Anxiety Integumentary History of Skin or Integumenta: Yes (nicotine discoloration of the hands) Blood Transfusions History of Blood Disorders: No Review of Systems-General Constitutional: No chills, No diaphoresis EENTM: No blurred vision, No double vision Respiratory: No cough, No hemoptysis, No orthopnea, No short of breath Gastrointestinal: abdominal pain (R sided), constipation Genitourinary: No dysuria, No frequency Musculoskeletal: No back pain, No joint pain Skin: No change in color, No change in hair/nails Psychiatric/Neurological: Denies Anxiety, Denies Depressed Physical Exam-General Problems Physical Exam Vital Signs Vital Signs - First Documented 03/19/20 18:14 Temp 36.5 Pulse 86 Resp 18 B/P (MAP) 130/76 (94) Pulse Ox 98 O2 Delivery Room Air Capillary Refill : Less Than 3 Seconds General Appearance: WD/WN, no apparent distress Eyes: Bilateral Eye Normal Inspection HEENT: PERRL/EOMI, normal ENT inspection Neck: non-tender, supple, normal inspection Respiratory: chest non-tender, no respiratory distress, no accessory muscle use Cardiovascular: normal peripheral pulses, regular rate, rhythm, no edema Gastrointestinal: distended, tenderness Back: normal inspection, no CVA tenderness, no vertebral tenderness Extremities: normal range of motion, non-tender, normal inspection Neurologic/Psychiatric: no motor/sensory deficits, alert, normal mood/affect, oriented x 3 Skin: normal color, warm/dry Lymphatic: no adenopathy Data Review Labs Laboratory Tests 03/19/20 18:25: White Blood Count 17.0H, Red Blood Count 4.09L, Hemoglobin 12.6L, Hematocrit 36L , Mean Corpuscular Volume 89, Mean Corpuscular Hemoglobin 31, Mean Corpuscular Hemoglobin Concent 35, Red Cell Distribution Width 14.3, Platelet Count 423H, Mean Platelet Volume 8.4, Neutrophils (%) (Auto) 83H, Lymphocytes (%) (Auto) 9L, Monocytes (%) (Auto) 7, Eosinophils (%) (Auto) 1, Basophils (%) (Auto) 0, Neutrophils # (Auto) 14.2H, Lymphocytes # (Auto) 1.5, Monocytes # (Auto) 1.2H, Eosinophils # (Auto) 0.1, Basophils # (Auto) 0.0, Neutrophils % (Manual) 85, Lymphocytes % (Manual) 9, Monocytes % (Manual) 6, Blood Morphology Comment NORMAL, Sodium Level 133L, Potassium Level 3.4L, Chloride Level 99, Carbon Dioxide Level 23, Anion Gap 11, Blood Urea Nitrogen 17, Creatinine 1.47H, Estimat Glomerular Filtration Rate 49, BUN/Creatinine Ratio 12, Glucose Level 104, Calcium Level 8.6, Corrected Calcium 8.8, Magnesium Level 1.9, Total Bilirubin 0.2, Aspartate Amino Transf (AST/SGOT) 12, Alanine Aminotransferase (ALT/SGPT) 11, Alkaline Phosphatase 225H, C-Reactive Protein High Sensitivity 5.57H, Total Protein 7.1, Albumin 3.7, Lipase 14, Procalcitonin 0.07 03/19/20 19:17: Urine Color YELLOW, Urine Clarity CLEAR, Urine pH 5.5, Urine Specific [place] 1.015L, Urine Protein TRACEH, Urine Glucose (UA) NEGATIVE, Urine Ketones NEGATIVE, Urine Nitrite NEGATIVE, Urine Bilirubin NEGATIVE, Urine Urobilinogen 0.2, Urine Leukocyte Esterase NEGATIVE, Urine RBC (Auto) NEGATIVE, Urine RBC 0- 2, Urine WBC 2-5, Urine Crystals PRESENTH, Urine Amorphous Sediment FEW FABIAN URATESH, Urine Bacteria TRACE, Urine Casts PRESENT, Urine Hyaline Casts >50H, Urine Mucus NEGATIVE, Urine Other FEW SPERMH, Urine Culture Indicated NO 03/20/20 05:36: White Blood Count 13.0H, Red Blood Count 3.87L, Hemoglobin 11.7L, Hematocrit 35L , Mean Corpuscular Volume 89, Mean Corpuscular Hemoglobin 30, Mean Corpuscular Hemoglobin Concent 34, Red Cell Distribution Width 14.2, Platelet Count 418H, Mean Platelet Volume 8.7, Neutrophils (%) (Auto) 79H, Lymphocytes (%) (Auto) 11L , Monocytes (%) (Auto) 9, Eosinophils (%) (Auto) 1, Basophils (%) (Auto) 0, Neutrophils # (Auto) 10.2H, Lymphocytes # (Auto) 1.5, Monocytes # (Auto) 1.2H, Eosinophils # (Auto) 0.1, Basophils # (Auto) 0.0, Sodium Level 138, Potassium Level 3.2L, Chloride Level 103, Carbon Dioxide Level 25, Anion Gap 10, Blood Urea Nitrogen 12, Creatinine 0.97, Estimat Glomerular Filtration Rate > 60, BUN/Creatinine Ratio 12, Glucose Level 86, Calcium Level 8.5, Corrected Calcium 9.1, Total Bilirubin 0.2, Aspartate Amino Transf (AST/SGOT) 13, Alanine Aminotransferase (ALT/SGPT) 9, Alkaline Phosphatase 220H, C-Reactive Protein High Sensitivity 5.54H, Total Protein 6.0L, Albumin 3.3 Assessment/Plan Assessment/Plan Assessment/Plan constipation bowel obstruction colon cancer npo repeat imaging increase activity possible colonoscopy if obstruction does not resolve Clinical Quality Measures DVT/VTE Risk/Contraindication: Risk Factor Score Per Nursin RFS Level Per Nursing on Admit: 3=High MIKE MATHEWS DO 03/21/20 1132: History of Present Illness History of Present Illness History of Present Illness Reports abdominal pain that right side. Has had about a week but it has worsened since yesterday. Had other ER Visits. Nothing out of his colostomy. Nothing has made better. Nothing makes worse that he know. Patient had tried miralax and no improvement. Has colostomy due to bowel perforation due to opioid use he states. patient also with metastatic lung cancer. In the ER they got some stool out, and some of the distention has improved he states. Was having nausea and vomiting and this has improved. Currently denies n/v fever sweats chills shortness of breath or chest pain. Had ct scan with distention of colon proximal to the ostomy which appears to have large stool ball some thickening of the colonic wall suggestive of colitis. Allergies and Home Medications Allergies Coded Allergies: nitroglycerin (Verified Allergy, Unknown, 04/14/16) morphine (Verified Adverse Reaction, Mild, nausea, 01/15/19) Home Medications Alprazolam 0.5 Mg Tablet, 0.5 MG PO BID PRN for ANXIETY, (Reported) Atorvastatin Calcium 10 Mg Tablet, 10 MG PO HS, (Reported) Ergocalciferol (Vitamin D2) 1,250 Mcg Capsule, 1,250 MCG PO MONDAY, (Reported) Fluoxetine HCl 20 Mg Capsule, 20 MG PO DAILY, (Reported) Gabapentin 300 Mg Capsule, 300 MG PO TID, (Reported) Metoprolol Tartrate 25 Mg Tablet, 25 MG PO BID, (Reported) Mirtazapine 30 Mg Tablet, 15 MG PO HS, (Reported) TAKES OF A 30MG TAB Olanzapine 10 Mg Tablet, 10 MG PO HS, (Reported) Oxycodone HCl 20 Mg Tab.er.12h, 20 MG PO BID, (Reported) Oxycodone HCl/Acetaminophen 1 Each Tablet, 1 EA PO Q6H PRN for PAIN-MODERATE (5- 7), (Reported) Pantoprazole Sodium 40 Mg Tablet.dr, 40 MG PO DAILY, (Reported) Phenytoin Sodium Extended 100 Mg Capsule, 100 MG PO QID, (Reported) Prednisone 50 Mg Tab, 50 MG PO DAILY, (Reported) Sennosides/Docusate Sodium 1 Each Tablet, 1 EACH PO BID, (Reported) Patient Home Medication List Home Medication List Reviewed: Yes Past Vxcjflp-Ofosoc-Mvwqpp Hx Reviewed Nursing Assessment Reviewed/Agree w Nursing PMH: Yes Family Medical History Significant Family History: No Pertinent Family Hx Review of Systems-General Constitutional: No chills, No diaphoresis EENTM: No blurred vision, No double vision Respiratory: No cough, No hemoptysis, No orthopnea, No short of breath Gastrointestinal: abdominal pain (rlq), constipation Genitourinary: No dysuria, No frequency Musculoskeletal: No back pain, No joint pain Skin: No change in color, No change in hair/nails Psychiatric/Neurological: Denies Anxiety, Denies Depressed All Other Systems Reviewed Negative Unless Noted: Yes (Negative excepted noted.) Physical Exam-General Problems Physical Exam General Appearance: WD/WN, no apparent distress HEENT: PERRL/EOMI Neck: non-tender, supple, normal inspection Respiratory: chest non-tender, no respiratory distress, no accessory muscle use Cardiovascular: normal peripheral pulses, regular rate, rhythm, no edema Gastrointestinal: distended (mild), tenderness (rlq, colostomy llq pink and has liquid stool coming out, digital exam on colosotmy hard stool proximal to fascia slight narrowing at stoma) Back: no CVA tenderness, no vertebral tenderness Extremities: non-tender, normal inspection Neurologic/Psychiatric: no motor/sensory deficits, alert, normal mood/affect, oriented x 3 Skin: normal color, warm/dry Lymphatic: no adenopathy Assessment/Plan Assessment/Plan Assessment/Plan constipation history of bowel perforation with colostomy(Yris) Metastatic lung cancer Patient will do soap suds enema on exam can feel a stool ball just proximal to stoma can not get out at this time may need colonoscopy if liquids and enema do not improve Supervisory-Addendum Brief Verification & Attestation Participated in pt care: history, MDM, physical Personally performed: exam, history, MDM, supervision of care Care discussed with: Medical Student Procedures: n/a Results interpretation: Verified all documentation Verification and Attestation of Medical Student E/M Service A medical student performed and documented this service in my presence. I reviewed and verified all information documented by the medical student and made modifications to such information, when appropriate. I personally performed the physical exam and medical decision making. Mike Mathews, Mar 20, 2020,18:37 SALAZAR SMITH MED STUDENT Mar 20, 2020 09:04 MIKE MATHEWS DO Mar 21, 2020 11:32
--- NOTE | 2020-03-20 09:15 | Diagnostic Imaging Report ---
INDICATION: Constipation. TIME OF EXAM: 8:15 AM Correlation is made with abdominal radiographs performed one day earlier. There continues to be moderate gaseous distention to the colon which does contain some contrast. Patient has an ostomy in the left lower quadrant. Degree of distention is similar to yesterday's exam. There are air-fluid levels present. Small bowel is decompressed. No wall thickening or pneumatosis is seen. No free air. IMPRESSION: Continued moderate gaseous distention to the colon is traced to the level of the ostomy in the left lower quadrant. Dictated by: Dictated on workstation # [id number]
[2020-03-20] MEDS: PATIENT'S OWN MED (RX USE ONLY) PO SCH ×4 (10:11→20:23)
--- NOTE | 2020-03-20 10:24 | NUR ---
I ORIGINALLY TOOK REPORT ON THIS PT AND PASSED MEDICATIONS, THEN HANDED OFF TO ANA SMALL
--- NOTE | 2020-03-20 10:26 | NUR ---
Jerry is a 59 year old single male who has been living in an apt. in [place] but recently moved in with his mother for her assistance. 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 In addition he has a colostomy and seizure disorder. Pt has limited income with [employer] Medicaid insurance. He has been receiving [facility] and has [facility]. Recommend continuation of [facility]
--- NOTE | 2020-03-20 11:21 | Short Stay Summary-Hospitalist ---
History of Present Illness HPI/Chief Complaint CC: Abdominal pain HPI: This is a 59yoWM who has a multitude of medical problems and has skilled helpers at home who presented to the ER with a colonic impaction, general surgery was consulted, Pt was given a soap suds enema with good results but did require admission to the hospital with general surgery consultation. At this current time Pt is doing well and he did have some images by general surgery to evaluate the next step of his care. Source: patient, RN/MD Exam Limitations: no limitations Date Seen 03/20/20 Time Seen by a Provider: 10:00 Attending Physician Ros Del Rosario DO PCP Self,James ADKINS Referring Physician Date of Admission Mar 19, 2020 at 21:45 Home Medications & Allergies Home Medications Reviewed patient Home Medication Reconciliation performed by pharmacy medication reconciliations emissions repair technician and/or nursing. Patients Allergies have been reviewed. Allergies Allergies Coded Allergies nitroglycerin (Verified Allergy, Unknown, 04/14/16) morphine (Verified Adverse Reaction, Mild, nausea, 01/15/19) Past Wwlrmbq-Umrzti-Wxeqoq Hx Past Med/Social Hx: Reviewed Nursing Past Med/Soc Hx, Reviewed and Corrections made Patient Social History Marrital Status: single Employed/Student: unemployed, retired Alcohol Use: Denies Use Recreational Drug Use: No Smoking Status: Never a Smoker Type Used: Cigarettes 2nd Hand Smoke Exposure: No Recent Foreign Travel: No Contact w/other who traveled: No Recent Hopitalizations: No Recent Infectious Disease Expo: No Immunizations Up To Date Date of Pneumonia Vaccine: May 11, 2016 Date of Influenza Vaccine: May 02, 2019 Seasonal Allergies Seasonal Allergies: No Past Medical History Surgeries: Bowel Surgery, Cardiac Respiratory: COPD, Emphysema, Pneumonia Cardiac: Coronary Artery Disease, Heart Attack Neurological: Seizure Disorder Gastrointestinal: Gastroesophageal Reflux, Gastrointestinal Bleed, Chronic Constipation Musculoskeletal: Arthritis Cancer: Lung What Type of Treatment Did You: Chemotherapy, Radiation, Other Psychosocial: Anxiety History of Blood Disorders: No Review of Systems Constitutional: see HPI EENTM: see HPI Respiratory: see HPI Cardiovascular: see HPI Gastrointestinal: see HPI Musculoskeletal: see HPI Skin: see HPI Psychiatric/Neurological: See HPI Physical Exam Physical Exam Vital Signs Vital Signs - First Documented 03/19/20 18:14 Temp 36.5 Pulse 86 Resp 18 B/P (MAP) 130/76 (94) Pulse Ox 98 O2 Delivery Room Air Capillary Refill : Less Than 3 Seconds Height, Weight, BMI Height: 6'0" Weight: 147lbs. oz. [id number]; 20.23 BMI Method:Stated General Appearance: No Apparent Distress, WD/WN, Chronically ill, Thin Eyes: Bilateral Eye Normal Inspection HEENT: PERRL/EOMI, TMs Normal, Normal ENT Inspection, Pharynx Normal Neck: Full Range of Motion, Normal Inspection, Non Tender, Supple, Carotid Bruit Respiratory: Chest Non Tender, Lungs Clear, Normal Breath Sounds, No Accessory Muscle Use, No Respiratory Distress, Decreased Breath Sounds Cardiovascular: Regular Rate, Rhythm, No Edema, No Gallop, No JVD, No Murmur, Normal Peripheral Pulses Gastrointestinal: Normal Bowel Sounds, No Organomegaly, No Pulsatile Mass, Abnormal Bowel Sounds, Distended, Tenderness Back: Normal Inspection, No CVA Tenderness, No Vertebral Tenderness Extremity: Normal Capillary Refill, Normal Inspection, Normal Range of Motion, Non Tender, No Calf Tenderness, No Pedal Edema Neurologic/Psychiatric: Alert, Oriented x3, No Motor/Sensory Deficits, Normal Mood/Affect Skin: Normal Color, Warm/Dry Lymphatic: No Adenopathy Results Results/Procedures Labs Laboratory Tests 03/19/20 18:25 03/20/20 05:36 Patient resulted labs reviewed. Short Stay Diagnosis Discharge Diagnosis-Short Stay Admission Diagnosis Assessment: Impaction Smoker Weight loss Falls Pelvic fracture Plan: Appreciate general surgery Continue enemas Pain control Final Discharge Diagnosis Assessment: Impaction Smoker Weight loss Falls Pelvic fracture Plan: Appreciate general surgery Continue enemas Pain control Conclusion Plan Plan: Appreciate general surgery Continue enemas Pain control Diagnosis/Problems Diagnosis/Problems (1) Abdominal pain Status: Acute (2) Constipation Status: Acute Qualifiers: Qualified Codes: K59.00 - Constipation, unspecified (3) Colitis Status: Acute Clinical Quality Measures DVT/VTE Risk/Contraindication: Risk Factor Score Per Nursin RFS Level Per Nursing on Admit: 3=High ROS DEL ROSARIO DO Mar 20, 2020 11:21
[2020-03-20] MEDS ORDERED: OXYC20TA54 PO (11:25)
[2020-03-20] MEDS ORDERED: FLUO20CA46 PO (11:25)
[2020-03-20] MEDS ORDERED: ERGO50006 PO (11:25)
[2020-03-20] MEDS ORDERED: PRD50T PO (11:25)
[2020-03-20] MEDS ORDERED: GABA300C PO (11:25)
[2020-03-20] MEDS ORDERED: OXYC1TAB12 PO (11:25)
[2020-03-20] MEDS ORDERED: ATOR10TA66 PO (11:25)
[2020-03-20] MEDS ORDERED: SENN-109 PO (11:26)
--- NOTE | 2020-03-20 11:33 | NUR ---
SPOKE WITH THE PT, CALLED ADE AT HOME [facility]ALTH AND WENT THRU THE EXT MED HISTORY TO COMPLETE THE MED REC PTS MOTHER WILL BROUGHT HIS PILL BOX UP TO HIS ROOM- WHEN NURSE AND MYSELF WERE OUT OF THE ROOM THE PT TOOK HIS MORNING MEDS. WHEN I ASKED ABOUT TODAYS MEDICATION BEING GONE HE HAD TODAYS PILL UNDERWOOD UNDER HIS BLANKET- HE HANDED IT TO ME WITH THE AM MEDS BEING GONE. PT SAID HE NEEDED TO TAKE HIS DILANTIN SO HE TOOK ALL HIS MORNING PILLS- I ADVISED HIM TO NOT TAKE ANYTHING FURTHER UNTIL HE TALKS TO HIS NURSE. I LET ANA SMALL KNOW THAT HE TOOK: SENNA S, PREDNISONE 50MG, FLUOXETINE, PROTONIX, GABAPENTIN,DILANTIN, METOPROLOL TART PT IS PRESCRIBED OXYCONTIN 20MG 1 TAB BID BUT [facility] ALSO FILLED PERCOCET ON 03-16-2020 #35. I REACHED OUT TO [facility] IN [place] TO FIND OUT MORE INFORMATION ABOUT PT TAKING BOTH- I SPOKE WITH DR. ESPARZA NURSE AND SHE CONFIRMED PT IS TAKING OXYCONTIN 20MG 1 BID AND IS USING PERCOCET FOR BREAK THOUGH PAIN MIRTAZAPINE 30MG IS SHOWN ON THE EXT MED HISTORY 1 TAB DAILY HOWEVER [facility] WAS TOLD TO ONLY GIVE TAB HS BUT HIS PCP
[2020-03-20 12:00] VITALS: BP 125/77
--- NOTE | 2020-03-20 13:07 | NUR ---
RD ASSESSMENT PMHx: CA(lung, mets-brain/esophagus); CAD; TX; seizure disorder; GERD; chronic constipation PT INTERACTION: Pt was awake and pleasant during nutrition assessment. Pt states current appetite is not good, and has been this way for "some time." Note PO intake <25% x1meal, per chart review. Pt states following a regular diet at home, and has some difficulty chewing food, as he has no upper teeth. Pt states recent issues with nausea, vomiting, constipation and diarrhea. Note pt has colostomy, and pt states he has had some recent issues with colostomy output. Pt states recent wt loss, but is unsure of amount/timeframe. Note recent 7# wt loss x7mon, per chart review. ABNORMAL NUTRITION-RELATED LAB VALUES LOW: K 3.2; Pro 6.0 HIGH: alkphos 220 Est. kcal needs: 2025 kcal | 30 kcal/kg Est. Pro needs: 81 g Pro | 1.2 g Pro/kg PES STATEMENT: Inadequate oral intake (NI-2.1) related to loss of appetite | nausea | vomiting | constipation | diarrhea as evidenced by pt interview | PO intake <25% x1meal INTERVENTION: Continue with current diet order of Clear Liquid diet. Switch current supplementation order of Ensure Enlive with meals TID, to Ensure Clear with meals TID, for increased kcal and protein intake, as well as diet recommendations. Ensure Clear provides 250 kcal and 8 g Pro per serving. Will continue to follow and reassess as pt needs, intake, and status change. MONITOR/EVALUATE: PO Intake; Plan of Care; Hydration Status; Weight Status; Lab Values Amanda Galeana, MS, RD, LD
[2020-03-20 15:30] VITALS: BP 110/59
[2020-03-20] MEDS: NICOTINE 21 MG (NICODERM) PATCH TD SCH (16:05)
[2020-03-20 20:23] VITALS: BP 109/59
[2020-03-20] MEDS ORDERED: ALPRAZolam 0.5 MG (XANAX) TAB PO PRN (22:00)
[2020-03-21] VITALS (7 sets, daily range): BP systolic 93–139; BP diastolic 56–82
[2020-03-21] MEDS: fentaNYL INJECTION 100 MCG/2 ML AMP IV PRN ×2 (00:11→20:32)
[2020-03-21] MEDS: PIPERACILLIN/TAZO 4.5 GM/NS 100 ML IV SCH ×6 (03:58→20:30)
[2020-03-21 06:18] LABS: BASOPHILS % (AUTO) 0 % (0-10); EOSINOPHILS % (AUTO) 0 % (0-10); HEMATOCRIT 31 % (40-54); HEMOGLOBIN 10.4 G/DL (13.3-17.7); LYMPHOCYTES # (AUTO) 0.7 X 10^3 (1.0-4.0); LYMPHOCYTES % (AUTO) 7 % (12-44); MEAN CORPUSCULAR HEMOGLOBIN 30 PG (25-34); MEAN CORPUSCULAR HGB CONC 34 G/DL (32-36); MEAN CORPUSCULAR VOLUME 90 FL (80-99); MEAN PLATELET VOLUME 8.8 FL (7.4-10.4); MONOCYTES # (AUTO) 0.2 X 10^3 (0.0-1.0); MONOCYTES % (AUTO) 2 % (0-12); NEUTROPHILS # (AUTO) 10.1 X 10^3 (1.8-7.8); NEUTROPHILS % (AUTO) 91 % (42-75); PLATELET COUNT 388 10^3/uL (130-400); RED CELL DISTRIBUTION WIDTH 14.2 % (10.0-14.5); WHITE BLOOD COUNT 11.1 10^3/uL (4.3-11.0)
[2020-03-21 06:30] LABS: ALBUMIN 2.9 GM/DL (3.2-4.5); CHLORIDE 108 MMOL/L (98-107); POTASSIUM 3.1 MMOL/L (3.6-5.0); SODIUM 140 MMOL/L (135-145)
[2020-03-21 06:31] LABS: CALCIUM 7.8 MG/DL (8.5-10.1)
[2020-03-21 06:32] LABS: GLUCOSE 97 MG/DL (70-105)
[2020-03-21 06:33] LABS: CARBON DIOXIDE 25 MMOL/L (21-32); TOTAL PROTEIN 5.5 GM/DL (6.4-8.2)
[2020-03-21 06:34] LABS: BILIRUBIN,TOTAL 0.2 MG/DL (0.1-1.0)
[2020-03-21 06:36] LABS: ALKALINE PHOSPHATASE 187 U/L (40-136); CREATININE SERUM 0.83 MG/DL (0.60-1.30); GFR ESTIMATED > 60
[2020-03-21 06:37] LABS: BUN/CREATININE RATIO 8
[2020-03-21 06:39] LABS: ALANINE AMINOTRANSFERASE 10 U/L (0-55)
--- NOTE | 2020-03-21 06:44 | Progress Note - Hospitalist ---
Subjective HPI/CC On Admission Date Seen by Provider: Mar 21, 2020 Time Seen by Provider: 11:00 CC: Abdominal pain HPI: This is a 59yoWM who has a multitude of medical problems and has skilled helpers at home who presented to the ER with a colonic impaction, general surgery was consulted, Pt was given a soap suds enema with good results but did require admission to the hospital with general surgery consultation. At this current time Pt is doing well and he did have some images by general surgery to evaluate the next step of his care. Subjective/Events-last exam Fecal impaction in colostomy will require colonoscopy in am Patient doing well otherwise Nicotine patch maintained Pain controlled Review of Systems Gastrointestinal: Abdominal Pain Objective Exam Vital Signs Vital Signs Date Time Temp Pulse Resp B/P (MAP) Pulse Ox O2 Delivery O2 Flow Rate FiO2 03/21/20 15:30 36.5 85 18 139/67 (91) 96 Room Air Capillary Refill : Less Than 3 Seconds General Appearance: No Apparent Distress, WD/WN, Chronically ill, Thin Respiratory: Chest Non Tender, Lungs Clear, Normal Breath Sounds, No Accessory Muscle Use, No Respiratory Distress, Decreased Breath Sounds Cardiovascular: Regular Rate, Rhythm, No Edema, No Gallop, No JVD, No Murmur, Normal Peripheral Pulses Neurologic/Psychiatric: Alert, Oriented x3, No Motor/Sensory Deficits, Normal Mood/Affect Results/Procedures Lab Laboratory Tests 03/21/20 05:40 Patient resulted labs reviewed. Assessment/Plan Assessment and Plan Assess & Plan/Chief Complaint Assessment: Colostomy fecal impaction Lung cancer with mets Smoker Plan: Appreciate general surgery Colonoscopy in am Pain control Diagnosis/Problems Diagnosis/Problems (1) Abdominal pain Status: Acute (2) Constipation Status: Acute Qualifiers: Constipation type: unspecified constipation type Qualified Codes: K59.00 - Constipation, unspecified (3) Colitis Status: Acute Clinical Quality Measures DVT/VTE Risk/Contraindication: Risk Factor Score Per Nursin RFS Level Per Nursing on Admit: 3=High RHIANNON DHALIWAL DO Mar 21, 2020 06:44
[2020-03-21] MEDS ORDERED: MAGNESIUM 1 GM/100 ML IVPB 100 ML IV ONE (06:45)
[2020-03-21] MEDS: GABAPENTIN 300 MG (NEURONTIN) CAP PO SCH ×3 (09:00→20:30)
[2020-03-21] MEDS ORDERED: PHENYTOIN 100 MG (DILANTIN) CAP PO SCH (09:00)
[2020-03-21] MEDS: FLUoxetine HCL 20 MG (PROzac) CAP PO SCH (09:00)
[2020-03-21] MEDS: meTOprolol TARTRATE 25 MG (LOPRESSOR) TABLET PO SCH ×2 (09:00→20:31)
--- NOTE | 2020-03-21 09:00 | NUR ---
0900 MEDICATIONS THAT WERE NON ADMINISTERED WERE NOT GIVEN D/T PT TAKING OWN MEDICATIONS. PT HAD HOME MEDICATIONS IN BED WITH HIM AND REPORTS TAKING ALL HIS AM MEDICATIONS THAT WERE IN THE PILL BOX, COULD NOT TELL RN WHAT ALL MEDIATIONS HE TOOK THAT WERE IN THE PILL BOX BUT KNOWS ONE OF THEM WAS HIS DILANTIN. HOME MEDICATIONS WERE TAKEN AND LOCKED UP IN PT DRAWER AND PT EDUCATED ON ADMINISTRATION OF MEDICATIONS WHILE IN THE HOSPITAL.
[2020-03-21] MEDS: LACTATED RINGERS 1,000 ML IV SCH ×2 (09:33→17:50)
[2020-03-21] MEDS: POTASSIUM CL 10MEQ/50ML IVPB 50 ML IV SCH ×3 (09:34→12:13)
[2020-03-21] MEDS: NICOTINE PATCH REMOVAL TP SCH (09:35)
[2020-03-21] MEDS: ENOXAPARIN 40 MG/0.4 ML (LOVENOX) SYR SC SCH (09:36)
[2020-03-21] MEDS: PANTOPRAZOLE 40 MG (PROTONIX) TAB PO SCH (09:36)
[2020-03-21] MEDS: NICOTINE 21 MG (NICODERM) PATCH TD SCH (09:36)
[2020-03-21] MEDS: SENNA W/DOCUSATE (SENOKOT S) TABLET PO SCH ×2 (09:36→20:30)
--- NOTE | 2020-03-21 10:02 | Progress Note - Surgery ---
LULU SERRANO MED STUDENT 03/21/20 1002: Subjective Date Seen by a Provider: Mar 21, 2020 Time Seen by a Provider: 08:15 Subjective/Events-last exam Pt was seen and examined this morning. He reports RLQ pain as an 8/10 that wraps around to his back. He denies shortness of breath and notes some chest pain upon inspiration which he attributes to his smoking. He continues to have little output in the colostomy bag. He denies fever, chills, and vomiting but reports constant nausea. Objective Exam Vital Signs Date Time Temp Pulse Resp B/P (MAP) Pulse Ox O2 Delivery O2 Flow Rate FiO2 03/21/20 08:00 36.6 83 20 93/56 (68) 93 Room Air 03/21/20 04:00 36.4 70 16 121/62 (81) 93 Room Air 03/21/20 01:26 Room Air 03/21/20 00:22 36.7 69 18 125/67 (86) 93 Room Air 03/20/20 20:23 36.3 84 16 109/59 (76) 92 Room Air 03/20/20 15:30 36.6 83 18 110/59 (76) 94 Room Air 03/20/20 12:00 35.8 73 16 125/77 (93) 96 Room Air I & O 03/21/20 07:00 Intake Total 1280 ml Output Total 1950 ml Balance -670 ml Capillary Refill : Less Than 3 Seconds General Appearance: No Apparent Distress, WD/WN, Chronically ill, Thin HEENT: PERRL/EOMI Respiratory: No Accessory Muscle Use, No Respiratory Distress, Expiration (wheezing), Inspiration (wheezing) Cardiovascular: Regular Rate, Rhythm, No Gallop, No Murmur Gastrointestinal: distended, tenderness Neurologic/Psychiatric: Alert, Oriented x3, No Motor/Sensory Deficits, Normal Mood/Affect Results Lab Laboratory Tests 03/21/20 05:40: White Blood Count 11.1H, Red Blood Count 3.44L, Hemoglobin 10.4L, Hematocrit 31L , Mean Corpuscular Volume 90, Mean Corpuscular Hemoglobin 30, Mean Corpuscular Hemoglobin Concent 34, Red Cell Distribution Width 14.2, Platelet Count 388, Mean Platelet Volume 8.8, Neutrophils (%) (Auto) 91H, Lymphocytes (%) (Auto) 7L, Monocytes (%) (Auto) 2, Eosinophils (%) (Auto) 0, Basophils (%) (Auto) 0, Neutrophils # (Auto) 10.1H, Lymphocytes # (Auto) 0.7L, Monocytes # (Auto) 0.2, Eosinophils # (Auto) 0.0, Basophils # (Auto) 0.0, Sodium Level 140, Potassium Level 3.1L, Chloride Level 108H, Carbon Dioxide Level 25, Anion Gap 7, Blood Urea Nitrogen 7, Creatinine 0.83, Estimat Glomerular Filtration Rate > 60, BUN/Creatinine Ratio 8, Glucose Level 97, Calcium Level 7.8L, Corrected Calcium 8.7, Total Bilirubin 0.2, Aspartate Amino Transf (AST/SGOT) 15, Alanine Aminotransferase (ALT/SGPT) 10, Alkaline Phosphatase 187H, Total Protein 5.5L, Albumin 2.9L Assessment/Plan Assessment/Plan Assessment/Plan constipation bowel obstruction 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 He complains of abdominal pain, mostly at colostomy. Review of Systems General: Fatigue, Malaise Cardiovascular: No: Chest Pain, Palpitations Gastrointestinal: Abdominal Pain; No: Nausea, Vomiting Objective Exam General Appearance: No Apparent Distress, Chronically ill Respiratory: No Accessory Muscle Use, No Respiratory Distress, Expiration (wheezing), Inspiration (wheezing) Cardiovascular: Regular Rate, Rhythm, No Murmur Gastrointestinal: distended, tenderness, other (ostomy pink and fxning) Assessment/Plan Assessment/Plan Assessment/Plan Large bowel obstruction secondary to Fecal impaction Abdominal pain Pt has a large fecal ball below the fascia that is causing pain and has cause backup of fluids and dilation of the entire proximal large bowel. Attempted disimpaction yesterday by Dr. Mathews was unsuccessful. Pt will be made NPO after midnight, will get consent for colonoscopy and try to attempt disimpaction possibly netting of fecal obstruction. Discussed procedure with pt and went over risks and complications not limited to pain, bleeding, infection and even intestinal perforation. All questions answered to his satisfaction. Will plan for procedure in am, will control abdominal pain tonight. Supervisory-Addendum Brief Verification & Attestation Participated in pt care: history, MDM, physical Personally performed: exam, history, MDM Care discussed with: Medical Student Procedures: n/a Verification and Attestation of Medical Student E/M Service A medical student performed and documented this service. I then reviewed and verified all information documented by the medical student and made modifications to such information, when appropriate. I personally performed a physical exam, medical decision making and then discussed any differences between the notes and made revisions as necessary to create one note. Remigio Ramires , 03/21/20 , 16:31 LULU SERRANO MED STUDENT Mar 21, 2020 10:02 REMIGIO RAMIRES DO Mar 21, 2020 16:30
[2020-03-21] MEDS: FAMOTIDINE 20MG/2ML IV (PEPCID) IV SCH ×2 (11:07→20:30)
[2020-03-21] MEDS: PHENYTOIN 100 MG (DILANTIN) CAP PO SCH ×3 (14:27→20:31)
[2020-03-21] MEDS ORDERED: NICOTINE 21 MG (NICODERM) PATCH TD SCH (16:00)
[2020-03-21] MEDS: oxyCODONE/APAP 10/325MG (PERCOCET 10) TABLET PO PRN (18:49)
[2020-03-21] MEDS: MIRTAZAPINE 15 MG (REMERON) TAB PO SCH (20:31)
[2020-03-21] MEDS: OLANZapine 5 MG (ZyPREXA) TAB PO SCH (20:31)
[2020-03-21] MEDS ORDERED: NON-FORMULARY MEDICATION 1 EA EA (Olanzapine 10 MG) PO SCH (21:00)
[2020-03-21] MEDS ORDERED: NON-FORMULARY MEDICATION 1 EA EA (Mirtazapine 15 MG) PO SCH (21:00)
[2020-03-22] VITALS (8 sets, daily range): BP systolic 100–148; BP diastolic 58–79
[2020-03-22] MEDS: LACTATED RINGERS 1,000 ML IV SCH ×4 (04:35→20:45)
[2020-03-22] MEDS: PIPERACILLIN/TAZO 4.5 GM/NS 100 ML IV SCH ×6 (04:35→20:44)
[2020-03-22 05:24] LABS: BASOPHILS % (AUTO) 0 % (0-10); EOSINOPHILS # (AUTO) 0.2 10^3/uL (0.0-0.3); EOSINOPHILS % (AUTO) 2 % (0-10); HEMATOCRIT 31 % (40-54); HEMOGLOBIN 10.4 G/DL (13.3-17.7); LYMPHOCYTES # (AUTO) 1.7 X 10^3 (1.0-4.0); LYMPHOCYTES % (AUTO) 18 % (12-44); MEAN CORPUSCULAR HEMOGLOBIN 30 PG (25-34); MEAN CORPUSCULAR HGB CONC 33 G/DL (32-36); MEAN CORPUSCULAR VOLUME 90 FL (80-99); MEAN PLATELET VOLUME 8.7 FL (7.4-10.4); MONOCYTES % (AUTO) 11 % (0-12); NEUTROPHILS # (AUTO) 6.3 X 10^3 (1.8-7.8); NEUTROPHILS % (AUTO) 69 % (42-75); PLATELET COUNT 423 10^3/uL (130-400); RED CELL DISTRIBUTION WIDTH 14.7 % (10.0-14.5); WHITE BLOOD COUNT 9.2 10^3/uL (4.3-11.0)
[2020-03-22 05:48] LABS: ALANINE AMINOTRANSFERASE 10 U/L (0-55); ALBUMIN 2.9 GM/DL (3.2-4.5); ALKALINE PHOSPHATASE 157 U/L (40-136); BILIRUBIN,TOTAL 0.2 MG/DL (0.1-1.0); BUN/CREATININE RATIO 5; CARBON DIOXIDE 25 MMOL/L (21-32); CHLORIDE 110 MMOL/L (98-107); CREATININE SERUM 0.81 MG/DL (0.60-1.30); GFR ESTIMATED > 60; GLUCOSE 89 MG/DL (70-105); POTASSIUM 2.8 MMOL/L (3.6-5.0); SODIUM 143 MMOL/L (135-145); TOTAL PROTEIN 5.2 GM/DL (6.4-8.2)
[2020-03-22] MEDS: NICOTINE PATCH REMOVAL TP SCH (08:07)
[2020-03-22] MEDS: FAMOTIDINE 20MG/2ML IV (PEPCID) IV SCH ×2 (08:07→20:45)
[2020-03-22] MEDS: NICOTINE 21 MG (NICODERM) PATCH TD SCH (08:08)
--- NOTE | 2020-03-22 08:28 | Progress Note - Surgery ---
LULU SERRANO MED STUDENT 03/22/20 0828: Subjective Date Seen by a Provider: Mar 22, 2020 Time Seen by a Provider: 07:35 Subjective/Events-last exam Mr. Yang was seen this morning and reported increased colostomy bag output during the night. His abdominal pain is well-controlled with medication (rated at a 2/10). He denies N/V, shortness of breath, chest pain, fever and chills. Objective Exam Vital Signs Date Time Temp Pulse Resp B/P (MAP) Pulse Ox O2 Delivery O2 Flow Rate FiO2 03/22/20 04:00 36.8 71 16 127/67 (87) 94 Room Air 03/21/20 23:40 36.8 63 16 118/59 (78) 92 Room Air 03/21/20 20:00 Room Air 03/21/20 20:00 36.6 68 18 130/66 (87) 95 Room Air 03/21/20 15:30 36.5 85 18 139/67 (91) 96 Room Air 03/21/20 12:00 36.7 69 20 124/82 (96) 98 Room Air 03/21/20 09:00 98 Room Air I & O 03/22/20 07:00 Intake Total 1760 ml Output Total 2925 ml Balance -1165 ml Capillary Refill : Less Than 3 Seconds General Appearance: No Apparent Distress, WD/WN, Chronically ill, Thin HEENT: PERRL/EOMI Respiratory: Chest Non Tender, No Accessory Muscle Use, No Respiratory Distress, Inspiration (wheezing) Cardiovascular: Regular Rate, Rhythm, No Edema, No Gallop, No Murmur Gastrointestinal: distended, tenderness, other (ostomy pink and fxning, increased output from yesterday) Neurologic/Psychiatric: Alert, Oriented x3, No Motor/Sensory Deficits, Normal Mood/Affect Results Lab Laboratory Tests 03/22/20 05:05: White Blood Count 9.2, Red Blood Count 3.46L, Hemoglobin 10.4L, Hematocrit 31L, Mean Corpuscular Volume 90, Mean Corpuscular Hemoglobin 30, Mean Corpuscular Hemoglobin Concent 33, Red Cell Distribution Width 14.7H, Platelet Count 423H, Mean Platelet Volume 8.7, Neutrophils (%) (Auto) 69, Lymphocytes (%) (Auto) 18, Monocytes (%) (Auto) 11, Eosinophils (%) (Auto) 2, Basophils (%) (Auto) 0, Neutrophils # (Auto) 6.3, Lymphocytes # (Auto) 1.7, Monocytes # (Auto) 1.0, Eosinophils # (Auto) 0.2, Basophils # (Auto) 0.0, Sodium Level 143, Potassium Level 2.8L, Chloride Level 110H, Carbon Dioxide Level 25, Anion Gap 8, Blood Urea Nitrogen 4L, Creatinine 0.81, Estimat Glomerular Filtration Rate > 60, BUN/Creatinine Ratio 5, Glucose Level 89, Calcium Level 8.0L, Corrected Calcium 8.9, Total Bilirubin 0.2, Aspartate Amino Transf (AST/SGOT) 16, Alanine Aminotransferase (ALT/SGPT) 10, Alkaline Phosphatase 157H, Total Protein 5.2L, Albumin 2.9L Assessment/Plan Assessment/Plan Assessment/Plan Large bowel obstruction secondary to Fecal impaction Abdominal pain Clinical Quality Measures DVT/VTE Risk/Contraindication: Risk Factor Score Per Nursin RFS Level Per Nursing on Admit: 3=High REMIGIO RAMIRES DO 03/22/20 1230: Subjective Time Seen by a Provider: 08:56 Subjective/Events-last exam Pt seen and examined, he had no questions about procedure. Review of Systems Pulmonary: No Dyspnea, No Cough Cardiovascular: No: Chest Pain, Palpitations Gastrointestinal: No: Abdominal Pain Objective Exam General Appearance: No Apparent Distress, Chronically ill Respiratory: No Accessory Muscle Use, No Respiratory Distress, Inspiration (wheezing) Cardiovascular: Regular Rate, Rhythm, No Murmur Gastrointestinal: soft; No distended; other (ostomy pink and fxning, increased output from yesterday) Assessment/Plan Assessment/Plan Assessment/Plan Large bowel obstruction Plan colonosocopy through colostomy. Supervisory-Addendum Brief Verification & Attestation Participated in pt care: history, MDM, physical Personally performed: exam, history, MDM Care discussed with: Medical Student Procedures: n/a Verification and Attestation of Medical Student E/M Service A medical student performed and documented this service. I then reviewed and verified all information documented by the medical student and made modifications to such information, when appropriate. I personally performed a physical exam, medical decision making and then discussed any differences between the notes and made revisions as necessary to create one note. Remigio Ramires , 03/22/20 , 12:30 LULU SERRANO MED STUDENT Mar 22, 2020 08:28 REMIGIO RAMIRES DO Mar 22, 2020 12:30
[2020-03-22] MEDS: PHENYTOIN 100 MG (DILANTIN) CAP PO SCH ×4 (08:50→20:46)
[2020-03-22] MEDS ORDERED: LACTATED RINGERS 1,000 ML IV ONE (08:50)
[2020-03-22] MEDS ORDERED: PROPOFOL INJECTION 50 ML IV ONE (08:51)
[2020-03-22] MEDS ORDERED: MIDAZOLAM 2 MG/2 ML (VERSED) VIAL ONE (08:51)
[2020-03-22] MEDS ORDERED: LACTATED RINGERS 1,000 ML IV STA (09:13)
--- NOTE | 2020-03-22 09:28 | Anesthesia-General Post-Op ---
MAC Patient Condition Mental Status/LOC: Same as Preop Cardiovascular: Satisfactory Nausea/Vomiting: Absent Respiratory: Satisfactory Pain: Controlled Complications: Absent Post Op Complications Complications None Follow Up Care/Instructions Patient Instructions None needed. Anesthesiology Discharge Order Discharge Order Patient is doing well, no complaints, stable vital signs, no apparent adverse anesthesia problems. No complications reported per nursing. MARC HASKINS CRNA Mar 22, 2020 09:28
--- NOTE | 2020-03-22 09:32 | Progress Note-Post Operative ---
Post-Operative Progess Note Surgeon (s)/Manager Material (s) Surgeon COBY RAMIRES DO Manager Material: none Pre-Operative Diagnosis Large bowel obstruction- secondary to fecal obstruction Post-Operative Diagnosis Same - resolved Procedure & Operative Findings Date of Procedure 03/22/20 Procedure Performed/Findings colonoscopy thru colostomy Anesthesia Type IV sedation by SAMPLE ROOM SUPERVISOR Estimated Blood Loss Estimated blood loss (mL): none Specimens/Packing Specimens Removed none COBY RAMIRES DO Mar 22, 2020 09:32
--- NOTE | 2020-03-22 11:14 | Progress Note - Hospitalist ---
Subjective HPI/CC On Admission Date Seen by Provider: Mar 22, 2020 Time Seen by Provider: 11:45 CC: Abdominal pain HPI: This is a 59yoWM who has a multitude of medical problems and has skilled helpers at home who presented to the ER with a colonic impaction, general surgery was consulted, Pt was given a soap suds enema with good results but did require admission to the hospital with general surgery consultation. At this current time Pt is doing well and he did have some images by general surgery to evaluate the next step of his care. Subjective/Events-last exam C-scope did not identify obstruction Potassium 2.8 too low to DC today No pain reported as long as pain meds maintained Nicotine patch maintained Review of Systems General: Fatigue, Malaise Gastrointestinal: Abdominal Pain Objective Exam Vital Signs Vital Signs Date Time Temp Pulse Resp B/P (MAP) Pulse Ox O2 Delivery O2 Flow Rate FiO2 03/22/20 15:30 36.3 70 18 135/65 (88) 98 Room Air 03/22/20 09:30 5 Capillary Refill : Less Than 3 Seconds General Appearance: No Apparent Distress, WD/WN, Chronically ill, Thin Respiratory: Chest Non Tender, Lungs Clear, Normal Breath Sounds, No Accessory Muscle Use, No Respiratory Distress Cardiovascular: Regular Rate, Rhythm, No Edema, No Gallop, No JVD, No Murmur, Normal Peripheral Pulses Neurologic/Psychiatric: Alert, Oriented x3, No Motor/Sensory Deficits, Normal Mood/Affect Results/Procedures Lab Laboratory Tests 03/22/20 05:05 Patient resulted labs reviewed. Assessment/Plan Assessment and Plan Assess & Plan/Chief Complaint Assessment: Colostomy fecal impaction Lung cancer with mets Smoker Plan: Appreciate general surgery Colonoscopy in am Pain control 03/22/20: C-scope normal Increase PO nutrition Monitor pain Diagnosis/Problems Diagnosis/Problems (1) Abdominal pain Status: Acute (2) Constipation Status: Acute Qualifiers: Constipation type: unspecified constipation type Qualified Codes: K59.00 - Constipation, unspecified (3) Colitis Status: Acute Clinical Quality Measures DVT/VTE Risk/Contraindication: Risk Factor Score Per Nursin RFS Level Per Nursing on Admit: 3=High RHIANNON DHALIWAL DO Mar 22, 2020 11:14
[2020-03-22] MEDS: GABAPENTIN 300 MG (NEURONTIN) CAP PO SCH ×3 (11:28→20:45)
[2020-03-22] MEDS: meTOprolol TARTRATE 25 MG (LOPRESSOR) TABLET PO SCH ×2 (11:28→20:45)
[2020-03-22] MEDS: SENNA W/DOCUSATE (SENOKOT S) TABLET PO SCH ×2 (11:28→20:45)
[2020-03-22] MEDS: FLUoxetine HCL 20 MG (PROzac) CAP PO SCH (11:29)
[2020-03-22] MEDS: ENOXAPARIN 40 MG/0.4 ML (LOVENOX) SYR SC SCH (11:29)
--- NOTE | 2020-03-22 11:30 | OPERATIVE REPORT ---
DATE OF SERVICE: 03/22/2020 PREOPERATIVE DIAGNOSES: Large bowel obstruction secondary to fecal obstruction, abdominal pain. POSTOPERATIVE DIAGNOSES: Large bowel obstruction secondary to fecal obstruction, abdominal pain, but resolved. PROCEDURE: Colonoscopy through colostomy. SURGEON: Remigio Robins DO ENTERPRISE SALES PERSON: None. ANESTHESIA: IV sedation by the ANIMAL TRAINER SUPERVISOR. SPECIMENS: None. BLOOD LOSS: None. FLUIDS: Per anesthesia. POSTOPERATIVE CONDITION: Stable. INDICATION FOR PROCEDURE: The patient is a 59-year-old male who has been having abdominal pain and CAT scan showed a large bowel obstruction secondary to fecal impaction. Attempted manual disimpaction did not work, getting soapsuds enemas, needed a colonoscopy to try and remove this fecal impaction. FINDINGS: The patient stated that in early this morning started having more output and colonoscopy showed no fecal impaction. PROCEDURE NOTE: After informed consent was obtained, the patient was brought to the endoscopy suite, placed in bed in the supine position. The ANIMAL TRAINER SUPERVISOR then gave IV sedation, monitored his vitals the entire time, heart rate, blood pressure and pulse ox and placed the scope through the colostomy. We then easily pushed all the way to the cecum, took a picture of appendiceal orifice, noted the ileocecal valve and then slowly withdrew the scope, insufflating to look circumferentially at the crawford looking the cecum, up the ascending colon to the hepatic flexure, down the transverse colon to the splenic flexure, then into the descending colon and out the colostomy. There was no longer any fecal ball and must have passed in the night. Scope was removed. The patient tolerated the procedure, recovered in endoscopy suite. Job ID: [id number] DocumentID: [id number] Dictated Date: 03/22/2020 09:32:13 Geography Instructor Date: 03/22/2020 11:29:53 Dictated By: REMIGIO ROBINS DO
[2020-03-22] MEDS: PANTOPRAZOLE 40 MG (PROTONIX) TAB PO SCH (11:33)
[2020-03-22] MEDS: POTASSIUM CL 10MEQ/50ML IVPB 50 ML IV SCH ×7 (12:58→18:13)
[2020-03-22] MEDS ORDERED: ONDANSETRON 4 MG (ZOFRAN) ORAL DISSOLVE TAB PO PRN (15:15)
[2020-03-22] MEDS: oxyCODONE/APAP 10/325MG (PERCOCET 10) TABLET PO PRN (17:56)
[2020-03-22] MEDS: OLANZapine 5 MG (ZyPREXA) TAB PO SCH (20:45)
[2020-03-22] MEDS: MIRTAZAPINE 15 MG (REMERON) TAB PO SCH (20:45)
[2020-03-22] MEDS: fentaNYL INJECTION 100 MCG/2 ML AMP IV PRN (20:46)
[2020-03-23] VITALS: BP 127/69
[2020-03-23 03:00] LABS: BASOPHILS % (AUTO) 0 % (0-10); EOSINOPHILS # (AUTO) 0.3 10^3/uL (0.0-0.3); EOSINOPHILS % (AUTO) 4 % (0-10); HEMATOCRIT 30 % (40-54); HEMOGLOBIN 10.2 G/DL (13.3-17.7); LYMPHOCYTES # (AUTO) 1.8 X 10^3 (1.0-4.0); LYMPHOCYTES % (AUTO) 23 % (12-44); MEAN CORPUSCULAR HEMOGLOBIN 30 PG (25-34); MEAN CORPUSCULAR HGB CONC 34 G/DL (32-36); MEAN CORPUSCULAR VOLUME 90 FL (80-99); MEAN PLATELET VOLUME 8.6 FL (7.4-10.4); MONOCYTES # (AUTO) 0.9 X 10^3 (0.0-1.0); MONOCYTES % (AUTO) 12 % (0-12); NEUTROPHILS # (AUTO) 4.7 X 10^3 (1.8-7.8); NEUTROPHILS % (AUTO) 61 % (42-75); PLATELET COUNT 393 10^3/uL (130-400); RED CELL DISTRIBUTION WIDTH 14.5 % (10.0-14.5); WHITE BLOOD COUNT 7.8 10^3/uL (4.3-11.0)
[2020-03-23 03:13] LABS: ALBUMIN 2.9 GM/DL (3.2-4.5); CHLORIDE 110 MMOL/L (98-107); POTASSIUM 3.4 MMOL/L (3.6-5.0); SODIUM 142 MMOL/L (135-145)
[2020-03-23 03:14] LABS: CALCIUM 7.8 MG/DL (8.5-10.1)
[2020-03-23 03:15] LABS: GLUCOSE 80 MG/DL (70-105); TOTAL PROTEIN 5.5 GM/DL (6.4-8.2)
[2020-03-23 03:16] LABS: CARBON DIOXIDE 25 MMOL/L (21-32)
[2020-03-23 03:17] LABS: BILIRUBIN,TOTAL 0.2 MG/DL (0.1-1.0)
[2020-03-23 03:19] LABS: ALKALINE PHOSPHATASE 159 U/L (40-136); CREATININE SERUM 0.83 MG/DL (0.60-1.30); GFR ESTIMATED > 60
[2020-03-23 03:20] LABS: BUN/CREATININE RATIO 5
[2020-03-23 03:22] LABS: ALANINE AMINOTRANSFERASE 11 U/L (0-55)
[2020-03-23] MEDS: PIPERACILLIN/TAZO 4.5 GM/NS 100 ML IV SCH ×4 (04:00→12:57)
[2020-03-23 07:48] VITALS: BP 123/58
[2020-03-23] MEDS: NICOTINE PATCH REMOVAL TP SCH (08:33)
[2020-03-23] MEDS: FLUoxetine HCL 20 MG (PROzac) CAP PO SCH (08:35)
[2020-03-23] MEDS: GABAPENTIN 300 MG (NEURONTIN) CAP PO SCH (08:35)
[2020-03-23] MEDS: SENNA W/DOCUSATE (SENOKOT S) TABLET PO SCH (08:35)
[2020-03-23] MEDS: PANTOPRAZOLE 40 MG (PROTONIX) TAB PO SCH (08:35)
[2020-03-23] MEDS: meTOprolol TARTRATE 25 MG (LOPRESSOR) TABLET PO SCH (08:35)
[2020-03-23] MEDS: ENOXAPARIN 40 MG/0.4 ML (LOVENOX) SYR SC SCH (08:36)
[2020-03-23] MEDS: FAMOTIDINE 20MG/2ML IV (PEPCID) IV SCH (08:36)
[2020-03-23] MEDS: NICOTINE 21 MG (NICODERM) PATCH TD SCH (08:36)
[2020-03-23] MEDS: PHENYTOIN 100 MG (DILANTIN) CAP PO SCH (08:37)
[2020-03-23] MEDS ORDERED: NS IV 500 ML 500 ML ONE (09:36)
[2020-03-23] MEDS: LACTATED RINGERS 1,000 ML IV SCH (09:43)
[2020-03-23] MEDS: POTASSIUM CL 10MEQ/50ML IVPB 50 ML IV SCH ×3 (09:43→12:57)
[2020-03-23] MEDS: oxyCODONE/APAP 10/325MG (PERCOCET 10) TABLET PO PRN (10:50)
[2020-03-23 11:26] VITALS: BP 139/59
--- NOTE | 2020-03-23 11:29 | Discharge Summary ---
Discharge Summary Hospital Course Hospital Course Date of Admission: Mar 19, 2020 at 21:45 Admission Diagnosis : Colostomy fecal impaction Lung cancer with mets Smoker Family Physician/Provider: James Mullen MD Date of Discharge: 03/23/20 Discharge Diagnosis: Colostomy fecal impaction Colitis Hypokalemia Lung cancer with mets Smoker Hospital Course: Pt admitted with fecal impaction/severe constipation and treated with bowel regimen with resolution, he had colonoscopy through ostomy which showed clearance of blockage. He was treated with Zosyn for 4 days for possible colitis, antibiotics not continued on d/c. Marked hypokalemia treated inpatient as well. Labs and Pending Lab Test: Laboratory Tests 03/23/20 02:50: White Blood Count 7.8, Red Blood Count 3.35L, Hemoglobin 10.2L, Hematocrit 30L, Mean Corpuscular Volume 90, Mean Corpuscular Hemoglobin 30, Mean Corpuscular Hemoglobin Concent 34, Red Cell Distribution Width 14.5, Platelet Count 393, Mean Platelet Volume 8.6, Neutrophils (%) (Auto) 61, Lymphocytes (%) (Auto) 23, Monocytes (%) (Auto) 12, Eosinophils (%) (Auto) 4, Basophils (%) (Auto) 0, Neutrophils # (Auto) 4.7, Lymphocytes # (Auto) 1.8, Monocytes # (Auto) 0.9, Eosinophils # (Auto) 0.3, Basophils # (Auto) 0.0, Sodium Level 142, Potassium Level 3.4L, Chloride Level 110H, Carbon Dioxide Level 25, Anion Gap 7, Blood Urea Nitrogen 4L, Creatinine 0.83, Estimat Glomerular Filtration Rate > 60, BUN/Creatinine Ratio 5, Glucose Level 80, Calcium Level 7.8L, Corrected Calcium 8.7, Magnesium Level 1.3L, Total Bilirubin 0.2, Aspartate Amino Transf (AST/SGOT) 15, Alanine Aminotransferase (ALT/SGPT) 11, Alkaline Phosphatase 159H , Total Protein 5.5L, Albumin 2.9L Home Meds Active Reported Senna-S Tablet (Sennosides/Docusate Sodium) 1 Each Tablet 1 Each PO BID Oxycontin (Oxycodone HCl) 20 Mg Tab.er.12h 20 Mg PO BID Percocet 10-325 mg Tablet (Oxycodone HCl/Acetaminophen) 1 Each Tablet 1 Ea PO Q6H PRN MDD T Fluoxetine HCl 20 Mg Capsule 20 Mg PO DAILY Atorvastatin Calcium 10 Mg Tablet 10 Mg PO HS Prednisone 50 Mg Tab 50 Mg PO DAILY Vitamin D2 (Ergocalciferol (Vitamin D2)) 1,250 Mcg Capsule 1,250 Mcg PO MONDAY Neurontin (Gabapentin) 300 Mg Capsule 300 Mg PO TID Metoprolol Tartrate 25 Mg Tablet 25 Mg PO BID Pantoprazole Sodium 40 Mg Tablet.dr 40 Mg PO DAILY Olanzapine 10 Mg Tablet 10 Mg PO HS Mirtazapine 30 Mg Tablet 15 Mg PO HS TAKES OF A 30MG TAB Alprazolam 0.5 Mg Tablet 0.5 Mg PO BID PRN Dilantin (Phenytoin Sodium Extended) 100 Mg Capsule 100 Mg PO QID Assessment/Pt DC Instructions Follow up with Dr. Mullen within a few days of discharge. Discharge Diet: No Restrictions Activity as Tolerated: Yes Discharge Physical Examination Allergies: Coded Allergies: nitroglycerin (Verified Allergy, Unknown, 04/14/16) morphine (Verified Adverse Reaction, Mild, nausea, 01/15/19) General Appearance: No Apparent Distress Respiratory: Lungs Clear Cardiovascular: Regular Rate, Rhythm Gastrointestinal: Soft, Tenderness (mild epigastric, ostomy in place with brown stool in bag) Neurologic/Psychiatric: Alert, Normal Mood/Affect Clinical Quality Measures DVT/VTE Risk/Contraindication: Risk Factor Score Per Nursin RFS Level Per Nursing on Admit: 3=High WOO VAZQUEZ MD Mar 23, 2020 11:29
[2020-03-23] MEDS ORDERED: MAGNESIUM OXIDE (MAG-OX)400 MG TAB PO NR (11:30)
[2020-03-23] MEDS ORDERED: MAGNESIUM 1 GM/100 ML IVPB 100 ML IV ONE (11:45)
--- NOTE | 2020-03-23 11:55 | NUR ---
RECEIVED VERBAL ORDER TO HOLD THE LAST TWO BAGS OF K+ AND INFUSE 1G MAG PLUS PO MAG OX AND CONTINUE WITH DC HOME. PT CURRENTLY RECEIVED 20mEq K+ VIA IV
[2020-03-23 13:00] VITALS: BP 139/59
--- NOTE | 2020-03-23 13:00 | NUR ---
NATALY RITCHIE demonstrates understanding of discharge instructions and accurately returns instructions upon questioning. Copy of Post-Discharge Instructions and Medication Discharge Instructions given to PT. NATALY RITCHIE is able to manage continuing needs after discharge. Patients belongings returned to PT. Skin dry and intact; no breakdown noted. Patient discharged from 419-1 on at 1300. NATALY RITCHIE left floor via WC, accompanied by STAFF/FAMILY.
--- NOTE | 2020-03-23 14:37 | NUR ---
"RD ASSESSMENT PMHx: CA(lung, mets-brain,esophagus); CAD; IL; seizure disorder; GERD; chronic constipation PT INTERACTION: Pt was awake and pleasant during nutrition follow-up. Pt states he has not been eating good since last assessment. Note avg PO intake 25-50% x3d, per chart review. Pt states no recent issues with nausea, vomiting, constipation, or diarrhea. Note pt has colostomy and output appears good. Note pt currently on bowel regimen of senna BID, per chart review. ABNORMAL NUTRITION-RELATED LAB VALUES LOW: K 3.4; BUN 4; Ca 7.8; Pro 5.5; alb 2.9 HIGH: Cl 110; alkphos 159 Est. kcal needs: 2025 kcal | 30 kcal/kg Est. Pro needs: 81 g Pro | 1.2 g Pro/kg PES STATEMENT: Inadequate oral intake (NI-2.1) related to loss of appetite as evidenced by pt interview | avg PO intake 25-50% x3d INTERVENTION: Note pt currently on diet order of DYS3 Advanced/Ground Meat diet. Note pt currently has no issues with chewing/swallowing food. Would recommend diet advancement to Regular diet, for pt tolerance. Pt may benefit from nutrition supplementation if PO intake remains low. Encouraged pt to eat when able. Will continue to follow and reassess as pt needs, intake, and status change. MONITOR/EVALUATE: PO Intake; Plan of Care; Hydration Status; Weight Status; Lab Values Amanda Galeana, MS, RD, LD"
--- NOTE | 2020-03-24 07:54 | Progress Note - Surgery ---
Subjective Date Seen by a Provider: Mar 24, 2020 Time Seen by a Provider: 09:08 Subjective/Events-last exam Patient feeling better. Colostomy productive. Colonoscopy yesterday no fecal obstruction. Tolerating diet. Denies n/v fever sweats chills shortness of breath or chest pain. Objective Exam Vital Signs Date Time Temp Pulse Resp B/P (MAP) Pulse Ox O2 Delivery O2 Flow Rate FiO2 03/23/20 13:00 36.8 77 18 139/59 98 Room Air 03/23/20 11:26 36.8 77 18 139/59 (85) 98 Room Air 03/23/20 08:00 Room Air I & O 03/24/20 07:00 Intake Total 200 ml Balance 200 ml Capillary Refill : Less Than 3 Seconds General Appearance: No Apparent Distress HEENT: PERRL/EOMI Neck: Non Tender, Supple Respiratory: Chest Non Tender, No Accessory Muscle Use, No Respiratory Distress Cardiovascular: Regular Rate, Rhythm, No Edema Gastrointestinal: non tender, soft; No distended; other (ostomy pink and stool output) Neurologic/Psychiatric: Alert, Normal Mood/Affect Skin: Normal Color, Warm/Dry Lymphatic: No Adenopathy Assessment/Plan Assessment/Plan Assessment/Plan Large bowel obstruction constipation resolved no evidence from colonoscopy yesterday tolerating diet instructed patient to keep stools soft, utilizing stool softeners as needed okay to dc home from surgical standpoint follow up on prn basis. Clinical Quality Measures DVT/VTE Risk/Contraindication: Risk Factor Score Per Nursin RFS Level Per Nursing on Admit: 3=High MIKE IBARRA DO Mar 24, 2020 07:54
== END 2020-03-23 13:00 | disposition home or self-care (01) ==
LOC: EDUNIT# 18:06 → ER 18:09 → 4TH 21:45 → UNDOADMOB 21:45 → SDC 22:40 → 4TH 22:40 → UNDODISOB 03-23 13:00 → SDC 03-23 13:00
PROVIDERS: ATTEND Internal Medicine
DX: K56.41 Fecal impaction (principal); K56.609 Unspecified intestinal obstruction, unspecified as to partial versus complete obstruction; J43.9 Emphysema, unspecified; I25.10 Atherosclerotic heart disease of native coronary artery without angina pectoris; F41.9 Anxiety disorder, unspecified; M19.90 Unspecified osteoarthritis, unspecified site; K52.9 Noninfective gastroenteritis and colitis, unspecified; I10 Essential (primary) hypertension; F17.210 Nicotine dependence, cigarettes, uncomplicated; Z79.899 Other long term (current) drug therapy; Z79.82 Long term (current) use of aspirin; Z88.5 Allergy status to narcotic agent; Z88.8 Allergy status to other drugs, medicaments and biological substances; Z95.5 Presence of coronary angioplasty implant and graft
CPT/HCPCS: 44388; 74019 ×2; 74176; 80053 ×5; 81000; 83690; 83735 ×3; 84145; 85007; 85025 ×4; 85027; 86141 ×2; 99284; G0378; 36415

== ENCOUNTER 2020-03-26 20:32 | Emergency (ER) | payer MEDICAID ==
[~2020-03-26] VITALS: Ht 182.8 cm; Wt 68.0 kg
[~2020-03-26 20:32] MED LIST changes: +ERGO50006 PO; +FLUO20CA46 PO; +GABA300C PO; +OXYC1TAB12 PO; +OXYC20TA54 PO; +PRD50T PO; +SENN-109 PO
[2020-03-26 20:53] LABS: BASOPHILS # (AUTO) 0.1 10^3/uL (0.0-0.1); BASOPHILS % (AUTO) 0 % (0-10); EOSINOPHILS # (AUTO) 0.2 10^3/uL (0.0-0.3); EOSINOPHILS % (AUTO) 1 % (0-10); HEMATOCRIT 35 % (40-54); HEMOGLOBIN 11.9 G/DL (13.3-17.7); LYMPHOCYTES # (AUTO) 2.2 X 10^3 (1.0-4.0); LYMPHOCYTES % (AUTO) 11 % (12-44); MEAN CORPUSCULAR HEMOGLOBIN 31 PG (25-34); MEAN CORPUSCULAR HGB CONC 34 G/DL (32-36); MEAN CORPUSCULAR VOLUME 91 FL (80-99); MEAN PLATELET VOLUME 8.8 FL (7.4-10.4); MONOCYTES # (AUTO) 1.2 X 10^3 (0.0-1.0); MONOCYTES % (AUTO) 6 % (0-12); NEUTROPHILS # (AUTO) 15.6 X 10^3 (1.8-7.8); NEUTROPHILS % (AUTO) 81 % (42-75); PLATELET COUNT 486 10^3/uL (130-400); RED CELL DISTRIBUTION WIDTH 14.6 % (10.0-14.5); WHITE BLOOD COUNT 19.2 10^3/uL (4.3-11.0)
--- NOTE | 2020-03-26 21:01 | ED General ---
General Chief Complaint: Neurological Problems Stated Complaint: SEIZURES Source of Information: Patient, EMS History of Present Illness Date Seen by Provider: Mar 26, 2020 Time Seen by Provider: 20:32 Initial Comments 59-year-old male presenting by EMS after having recurrent seizures at home. He has long-standing seizures and denies missing any doses of medicine. He denies any new head injuries. He states that both him and his mom were concerned that his stool was darker in color coming out of his colostomy. They were concerned that he might be having a GI bleed. He has an appointment tomorrow at 10 AM to see his primary doctor, Dr. Mullen. however tonight after he had more than one seizure at home his mom who is his primary caregiver right now called EMS to have him brought to the emergency department. He denies any nausea or vomiting. He denies any pain with urination.he denies any fever or chills. He states that he was just discharged from [facility] on Monday. He personally has no complaint and more came because his mom was concerned about the color of his stool in colostomy and he had seizure and she was having trouble picking him up. Allergies and Home Medications Allergies Coded Allergies: nitroglycerin (Verified Allergy, Unknown, 04/14/16) morphine (Verified Adverse Reaction, Mild, nausea, 01/15/19) Home Medications Alprazolam 0.5 Mg Tablet, 0.5 MG PO BID PRN for ANXIETY, (Reported) Atorvastatin Calcium 10 Mg Tablet, 10 MG PO HS, (Reported) Ergocalciferol (Vitamin D2) 1,250 Mcg Capsule, 1,250 MCG PO MONDAY, (Reported) Fluoxetine HCl 20 Mg Capsule, 20 MG PO DAILY, (Reported) Gabapentin 300 Mg Capsule, 300 MG PO TID, (Reported) Metoprolol Tartrate 25 Mg Tablet, 25 MG PO BID, (Reported) Mirtazapine 30 Mg Tablet, 15 MG PO HS, (Reported) TAKES OF A 30MG TAB Olanzapine 10 Mg Tablet, 10 MG PO HS, (Reported) Oxycodone HCl 20 Mg Tab.er.12h, 20 MG PO BID, (Reported) Oxycodone HCl/Acetaminophen 1 Each Tablet, 1 EA PO Q6H PRN for PAIN-MODERATE (5- 7), (Reported) Pantoprazole Sodium 40 Mg Tablet.dr, 40 MG PO DAILY, (Reported) Phenytoin Sodium Extended 100 Mg Capsule, 100 MG PO QID, (Reported) Prednisone 50 Mg Tab, 50 MG PO DAILY, (Reported) Sennosides/Docusate Sodium 1 Each Tablet, 1 EACH PO BID, (Reported) Patient Home Medication List Home Medication List Reviewed: Yes Review of Systems Review of Systems Constitutional: no symptoms reported EENTM: no symptoms reported Respiratory: no symptoms reported Cardiovascular: no symptoms reported Gastrointestinal: see HPI Genitourinary: no symptoms reported Musculoskeletal: no symptoms reported Skin: no symptoms reported Psychiatric/Neurological: See HPI Hematologic/Lymphatic: Easy Bruising Past [id number] Hx Past Med/Social Hx: Reviewed Nursing Past Med/Soc Hx Patient Social History Alcohol Use: Denies Use Recreational Drug Use: No Type Used: Cigarettes 2nd Hand Smoke Exposure: No Recent Foreign Travel: No Contact w/Someone Who Travel: No Recent Hopitalizations: No Physical Abuse: No Sexual Abuse: No Mistreated: No Fear: No Immunizations Up To Date Date of Pneumonia Vaccine: May 11, 2016 Date of Influenza Vaccine: May 02, 2019 Seasonal Allergies Seasonal Allergies: No Past Medical History Surgeries: Yes (colostomy, port (left), toe amputation) Bowel Surgery, Cardiac Respiratory: No Cardiac: Yes Coronary Artery Disease, Heart Attack Neurological: Yes Seizure Disorder Genitourinary: No Gastrointestinal: Yes (colostomy) Gastroesophageal Reflux, Gastrointestinal Bleed, Chronic Constipation Musculoskeletal: Yes Arthritis Endocrine: No HEENT: No Cancer: Yes (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) Lung What Type of Treatment Did You: Chemotherapy, Radiation, Other Psychosocial: No Anxiety Integumentary: Yes (nicotine discoloration of the hands) Blood Disorders: No Family Medical History No Pertinent Family Hx Physical Exam Vital Signs Vital Signs - First Documented 03/26/20 20:32 Temp 36.9 Pulse 88 Resp 14 B/P (MAP) 115/85 (95) Pulse Ox 98 O2 Delivery Room Air Capillary Refill : Height, Weight, BMI Height: 6'0" Weight: 147lbs. oz. 66.246178nt; 20.23 BMI Method:Stated General Appearance: No Apparent Distress, Cachetic HEENT: PERRL/EOMI, Pharynx Normal Neck: Supple Respiratory: Chest Non Tender, No Accessory Muscle Use, No Respiratory Distress, Decreased Breath Sounds; No Rales, No Stridor, No Wheezing Cardiovascular: Regular Rate, Rhythm, Normal Peripheral Pulses Gastrointestinal: Normal Bowel Sounds, Non Tender, Soft, Other (colostomy present with dark brown stool in bag) Rectal: Heme Negative Stool (from colostomy bag) Extremity: Normal Capillary Refill, Non Tender, No Pedal Edema Neurologic/Psychiatric: Alert, Oriented x3, train gateman II-XII Norm as Tested Skin: Warm/Dry Focused Exam Lactate Level 03/26/20 21:55: Lactic Acid Level 1.75 Lactic Acid Level Progress/Results/Core Measures Suspected Sepsis SIRS Temperature: Pulse: Respiratory Rate: Laboratory Tests 03/26/20 20:35: White Blood Count 19.2H Blood Pressure / Mean: 03/26/20 21:55: Lactic Acid Level 1.75 Laboratory Tests 03/26/20 20:35: Creatinine 0.91, INR Comment 0.9, Platelet Count 486H, Total Bilirubin < 0.2 Results/Orders Lab Results Laboratory Tests Test 03/26/20 20:35 03/26/20 21:55 03/26/20 22:02 Range/Units White Blood Count 19.2 H 4.3-11.0 10^3/uL Red Blood Count 3.84 L 4.35-5.85 10^6/uL Hemoglobin 11.9 L 13.3-17.7 G/DL Hematocrit 35 L 40-54 % Mean Corpuscular Volume 91 80-99 FL Mean Corpuscular Hemoglobin 31 25-34 PG Mean Corpuscular Hemoglobin Concent 34 32-36 G/DL Red Cell Distribution Width 14.6 H 10.0-14.5 % Platelet Count 486 H 130-400 10^3/uL Mean Platelet Volume 8.8 7.4-10.4 FL Neutrophils (%) (Auto) 81 H 42-75 % Lymphocytes (%) (Auto) 11 L 12-44 % Monocytes (%) (Auto) 6 0-12 % Eosinophils (%) (Auto) 1 0-10 % Basophils (%) (Auto) 0 0-10 % Neutrophils # (Auto) 15.6 H 1.8-7.8 X 10^3 Lymphocytes # (Auto) 2.2 1.0-4.0 X 10^3 Monocytes # (Auto) 1.2 H 0.0-1.0 X 10^3 Eosinophils # (Auto) 0.2 0.0-0.3 10^3/uL Basophils # (Auto) 0.1 0.0-0.1 10^3/uL Neutrophils % (Manual) 76 % Lymphocytes % (Manual) 16 % Monocytes % (Manual) 5 % Eosinophils % (Manual) 3 % Toxic Granulation 4+ Prothrombin Time 12.8 12.2-14.7 SEC INR Comment 0.9 0.8-1.4 Activated Partial Thromboplast Time 28 24-35 SEC Sodium Level 141 135-145 MMOL/L Potassium Level 3.4 L 3.6-5.0 MMOL/L Chloride Level 104 98-107 MMOL/L Carbon Dioxide Level 23 21-32 MMOL/L Anion Gap 14 5-14 MMOL/L Blood Urea Nitrogen 7 7-18 MG/DL Creatinine 0.91 0.60-1.30 MG/DL Estimat Glomerular Filtration Rate > 60 BUN/Creatinine Ratio 8 Glucose Level 130 H 70-105 MG/DL Calcium Level 8.3 L 8.5-10.1 MG/DL Corrected Calcium 8.7 8.5-10.1 MG/DL Total Bilirubin < 0.2 0.1-1.0 MG/DL Aspartate Amino Transf (AST/SGOT) 14 5-34 U/L Alanine Aminotransferase (ALT/SGPT) 13 0-55 U/L Alkaline Phosphatase 206 H 40-136 U/L Total Protein 6.4 6.4-8.2 GM/DL Albumin 3.5 3.2-4.5 GM/DL Smear Scan 1+ LRG PLTS Lactic Acid Level 1.75 0.50-2.00 MMOL/L Urine Color YELLOW Urine Clarity CLEAR Urine pH 6.0 5-9 Urine Specific [place] 1.015 L 1.016-1.022 Urine Protein NEGATIVE NEGATIVE Urine Glucose (UA) NEGATIVE NEGATIVE Urine Ketones NEGATIVE NEGATIVE Urine Nitrite NEGATIVE NEGATIVE Urine Bilirubin NEGATIVE NEGATIVE Urine Urobilinogen 0.2 < = 1.0 MG/DL Urine Leukocyte Esterase NEGATIVE NEGATIVE Urine RBC (Auto) NEGATIVE NEGATIVE Urine RBC NONE /HPF Urine WBC NONE /HPF Urine Squamous Epithelial Cells 2-5 /HPF Urine Crystals NONE /LPF Urine Bacteria NEGATIVE /HPF Urine Casts PRESENT /LPF Urine Hyaline Casts 2-5 H /LPF Urine Coarse Granular Casts 2-5 H /LPF Urine Mucus NEGATIVE /LPF Urine Culture Indicated NO My Orders Orders - SERAFIN SINGER MD Comprehensive Metabolic Panel (03/26/20 20:48) Ed Iv/Invasive Line Start (03/26/20 20:48) Cbc With Automated Diff (03/26/20 20:48) Fecal Occult Bedside (03/26/20 20:48) Protime With Inr (03/26/20 20:48) Partial Thromboplastin Time (03/26/20 20:48) Manual Differential (03/26/20 20:35) Ua Culture If Indicated (03/26/20 21:02) Lactic Acid Analyzer (03/26/20 22:04) Ns Iv 1000 Ml (Sodium Chloride 0.9%) (03/26/20 22:08) Ns Iv 1000 Ml (Sodium Chloride 0.9%) (03/26/20 22:20) Vital Signs/I&O 03/26/20 03/26/20 03/26/20 03/26/20 20:32 23:05 23:07 23:15 Temp 36.9 36.8 36.8 36.6 Pulse 88 82 82 78 Resp 14 14 14 14 B/P (MAP) 115/85 (95) 113/74 113/74 (87) 118/81 Pulse Ox 98 98 98 96 O2 Delivery Room Air Room Air Room Air Room Air 03/27/20 00:00 Intake Total 1000 ml Balance 1000 ml Capillary Refill : Progress Note #1: Progress Note obtain basic labs and compared to 2 days ago when he was discharged from the hospital. Since he has no new head injury well defer imaging. Progress Note #2: Time: 21:51 Progress Note labs demonstrate an elevated white blood cell count of 19.2 thousand. His hemoglobin is also greatly elevated compared to discharge. His chemistry appear stable from discharge. He does not have fever. He denies any cough or increased pain with urination. He has no symptoms of infection. The elevated white blood cell count may be related to dehydration and hemoconcentration as well as stress from the seizures. Will obtain a lactic acid and give him a liter fluids for hydration. Also send a urinalysis to evaluate for possible infection. He had hemoccult negative stool from his colostomy bag. Progress Note #3: Progress Note lactic acid was negative for the patient. He was anxious to go. Discharge to home after the Liter of fluids infused and encourage to follow up with clinic for continued care. He has appt at [address] Mullen so have him keep that. the elevated WBC count is likely due to hemoconcentration and stress from seizure as well as activity since he has no sign of infection, normal vital signs and normal lactic acid. Departure Impression Primary Impression: Dehydration Additional Impression: Leukocytosis Qualified Codes: D72.829 - Elevated white blood cell count, unspecified Disposition: 01 HOME, SELF-CARE Condition: Stable Departure-Patient Inst. Decision time for Depature: 22:45 Referrals: RYAN MULLEN MD (PCP/Family) Primary Care Physician Patient Instructions: Dehydration, Adult (DC), Seizures, Adult (DC) Add. Discharge Instructions: Make sure to drink more water and no just Coke and sodas. Keep your appointment with Dr. Mullen at 10 am on MondayMarch 27. All discharge instructions reviewed with patient and/or family. Voiced understanding. SERAFIN SINGER MD Mar 26, 2020 21:01
[2020-03-26 21:02] LABS: INR 0.9 (0.8-1.4); PROTHROMBIN TIME PATIENT 12.8 SEC (12.2-14.7)
[2020-03-26 21:07] LABS: ALANINE AMINOTRANSFERASE 13 U/L (0-55); ALBUMIN 3.5 GM/DL (3.2-4.5); ALKALINE PHOSPHATASE 206 U/L (40-136); BILIRUBIN,TOTAL < 0.2 MG/DL (0.1-1.0); BUN/CREATININE RATIO 8; CALCIUM 8.3 MG/DL (8.5-10.1); CARBON DIOXIDE 23 MMOL/L (21-32); CHLORIDE 104 MMOL/L (98-107); CREATININE SERUM 0.91 MG/DL (0.60-1.30); GFR ESTIMATED > 60; GLUCOSE 130 MG/DL (70-105); POTASSIUM 3.4 MMOL/L (3.6-5.0); SODIUM 141 MMOL/L (135-145); TOTAL PROTEIN 6.4 GM/DL (6.4-8.2)
[2020-03-26 21:13] LABS: EOSINOPHILS % (MANUAL) 3 %; LYMPHOCYTES % (MANUAL) 16 %; MONOCYTES % (MANUAL) 5 %; NEUTROPHILS % (MANUAL) 76 %
[2020-03-26 21:14] LABS: SMEAR SCAN COMMENT 1+ LRG PLTS; TOXIC GRANULATION/VACUOLAZATIO 4+
[2020-03-26] MEDS ORDERED: NS IV 1000 ML 1,000 ML ONE (22:08)
[2020-03-26] MEDS ORDERED: NS IV 1000 ML 1,000 ML IV STA (22:20)
[2020-03-26 22:23] LABS: CLARITY,URINE CLEAR; COLOR,URINE YELLOW
[2020-03-26 22:24] LABS: BACTERIA,URINE NEGATIVE /HPF; BILIRUBIN,URINE NEGATIVE (NEGATIVE); GLUCOSE, URINE (UA) NEGATIVE (NEGATIVE); KETONES,URINE NEGATIVE (NEGATIVE); LEUKOCYTE ESTERASE ,URINE NEGATIVE (NEGATIVE); NITRITE,URINE NEGATIVE (NEGATIVE); PROTEIN,URINE NEGATIVE (NEGATIVE)
--- NOTE | 2020-03-26 22:45 | NUR ---
Pts mother Sarah contacted for pt ride home.
[2020-03-26 23:07] VITALS: BP 113/74
[2020-03-26 23:15] VITALS: BP 118/81
--- NOTE | 2020-03-26 23:15 | NUR ---
Pt discharged. [facility] [place] [facility] [place] notified that pt needs help back into the house. Kendal, EMT said she would go assist with the pt as she told him when transporting him to the hospital that they(ems) would assist him back into the home if discharged.
== END 2020-03-26 23:15 | disposition home or self-care (01) ==
LOC: EDUNIT# 20:32 → ER FS 20:33
DX: E86.0 Dehydration (principal); D72.829 Elevated white blood cell count, unspecified; I25.2 Old myocardial infarction; I25.10 Atherosclerotic heart disease of native coronary artery without angina pectoris; K21.9 Gastro-esophageal reflux disease without esophagitis; G40.909 Epilepsy, unspecified, not intractable, without status epilepticus; K59.09 Other constipation; F41.9 Anxiety disorder, unspecified; Z88.8 Allergy status to other drugs, medicaments and biological substances; Z88.5 Allergy status to narcotic agent; Z79.52 Long term (current) use of systemic steroids; Z85.118 Personal history of other malignant neoplasm of bronchus and lung; Z85.841 Personal history of malignant neoplasm of brain; Z85.01 Personal history of malignant neoplasm of esophagus
CPT/HCPCS: 36415; 80053; 81000; 82274; 83605; 85007; 85027; 85610; 85730

== ENCOUNTER → 2020-04-03 | Outpatient (CLI) | payer MEDICAID ==
--- NOTE | 2020-04-03 11:43 | Diagnostic Imaging Report ---
INDICATION: Right lung neoplasm. TIME OF EXAM: 10:57 AM Comparison is made with prior chest from 09/04/2019. FINDINGS: Heart size is stable. Mass in the right upper lobe is again noted. There is a left chest wall port with tip overlying the SVC. There is some generalized interstitial changes in both lungs. No parenchymal consolidation is seen. There is no effusion or pneumothorax. IMPRESSION: Right upper lobe mass and left lung calcified nodule, stable. There are some generalized interstitial changes noted. Dictated by: Dictated on workstation # [id number]
--- NOTE | 2020-04-03 11:50 | Diagnostic Imaging Report ---
INDICATION: Pain in the right ribs. Time of exam 11:00 a.m. There appear to be healing fractures involving the lower right anterior ribs. This appears to involve approximately the right 7th through 9th ribs. No displacement is seen. The right upper lobe slightly lung mass is again noted. No effusion or pneumothorax is seen. IMPRESSION: Healing lower right anterior rib fractures. Dictated by: Dictated on workstation # [id number]
== END ==
LOC: RAD FS 10:45
PROVIDERS: ATTEND Family Medicine
DX: C34.11 Malignant neoplasm of upper lobe, right bronchus or lung (principal); S22.31XD Fracture of one rib, right side, subsequent encounter for fracture with routine healing; X58.XXXD Exposure to other specified factors, subsequent encounter
CPT/HCPCS: 71046; 71100

== ENCOUNTER 2020-05-03 06:53 | Emergency (ER) | payer MEDICAID ==
[~2020-05-03] VITALS: Ht 182.8 cm; Wt 60.0 kg
[~2020-05-03 06:53] MED LIST changes: -OXYC-465 PO; +OXYC-556 PO; -PANT40TA3 PO; +PANT40TA52 PO
[2020-05-03] MEDS ORDERED: NS IV 1000 ML 1,000 ML IV STA (07:12)
[2020-05-03] MEDS ORDERED: PANTOPRAZOLE 40 MG (PROTONIX) VIAL IV STA (07:12)
[2020-05-03] MEDS ORDERED: ONDANSETRON 4 MG/2 ML (SDV) Z0FRAN IVP STA (07:12)
--- NOTE | 2020-05-03 07:19 | ED GI ---
General Chief Complaint: Abdominal/GI Problems Stated Complaint: ABDOMINAL PAIN Nursing Triage Note: Patient reports he began feeling nauseous yesterday evening around 7 pm. Reports he went to bed and tried to sleep, but was unable to fall asleep. He reports he tried to drink a Boost around 4 am and immediately vomited. He reports good output through his colostomy. Sepsis Screen: No Definite Risk Source of Information: Patient, EMS History of Present Illness Date Seen by Provider: May 03, 2020 Time Seen by Provider: 06:53 Initial Comments 59-year-old male presenting with nausea and vomiting. He states that he has not been feeling well since last night. He was unable to sleep all night after eating a pork chop. He was having some epigastric discomfort and felt nauseated. He states he has been having good output from the colostomy. He tried drinking a boost around 4 PM and immediately vomited. Since he had been up all night around 6:30 he called EMS and had them bring him to the emergency department. He was concerned that he might be developing an obstruction or blockage like he had a month ago. He denies any fever or chills. Overall he just feels poorly. He does have an appointment to see Dr. Mullen tomorrow for routine follow-up. He has had poor oral intake. He has had decreased urine output Allergies and Home Medications Allergies Coded Allergies: nitroglycerin (Verified Allergy, Unknown, 04/14/16) morphine (Verified Adverse Reaction, Mild, nausea, 01/15/19) Home Medications Alprazolam 0.5 Mg Tablet, 0.5 MG PO BID PRN for ANXIETY, (Reported) Atorvastatin Calcium 10 Mg Tablet, 10 MG PO HS, (Reported) Ergocalciferol (Vitamin D2) 1,250 Mcg Capsule, 1,250 MCG PO MONDAY, (Reported) Fluoxetine HCl 20 Mg Capsule, 20 MG PO DAILY, (Reported) Gabapentin 300 Mg Capsule, 300 MG PO TID, (Reported) Metoprolol Tartrate 25 Mg Tablet, 25 MG PO BID, (Reported) Mirtazapine 30 Mg Tablet, 15 MG PO HS, (Reported) TAKES OF A 30MG TAB Olanzapine 10 Mg Tablet, 10 MG PO HS, (Reported) Ondansetron 4 Mg Tab.rapdis, 4 MG PO Q6H PRN for NAUSEA/VOMITING Prescribed by: SERAFIN SINGER on 05/03/20 0953 Oxycodone HCl 20 Mg Tab.er.12h, 20 MG PO BID, (Reported) Oxycodone HCl/Acetaminophen 1 Each Tablet, 1 EA PO Q6H PRN for PAIN-MODERATE (5- 7), (Reported) Pantoprazole Sodium 40 Mg Tablet.dr, 40 MG PO DAILY, (Reported) Phenytoin Sodium Extended 100 Mg Capsule, 100 MG PO QID, (Reported) Prednisone 50 Mg Tab, 50 MG PO DAILY, (Reported) Sennosides/Docusate Sodium 1 Each Tablet, 1 EACH PO BID, (Reported) Patient Home Medication List Home Medication List Reviewed: Yes Review of Systems Review of Systems Constitutional: No chills, No fever; malaise EENTM: No Symptoms Reported Respiratory: No Symptoms Reported Cardiovascular: No Symptoms Reported Gastrointestinal: See HPI Genitourinary: See HPI Musculoskeletal: no symptoms reported Skin: no symptoms reported Psychiatric/Neurological: No Symptoms Reported Past Rqwkoif-Fdrxvi-Traezw Hx Past Med/Social Hx: Reviewed Nursing Past Med/Soc Hx Patient Social History Alcohol Use: Denies Use Recreational Drug Use: No Smoking Status: Current Everyday Smoker Type Used: Cigarettes 2nd Hand Smoke Exposure: No Recent Foreign Travel: No Contact w/Someone Who Travel: No Recent Infectious Disease Expo: No Recent Hopitalizations: No Physical Abuse: No Sexual Abuse: No Mistreated: No Fear: No Immunizations Up To Date Date of Pneumonia Vaccine: May 11, 2016 Date of Influenza Vaccine: May 02, 2019 Seasonal Allergies Seasonal Allergies: No Past Medical History Surgeries: Yes (colostomy, port (left), toe amputation) Bowel Surgery, Cardiac Respiratory: No Cardiac: Yes Coronary Artery Disease, Heart Attack Neurological: Yes Seizure Disorder Genitourinary: No Gastrointestinal: Yes (colostomy) Gastroesophageal Reflux, Gastrointestinal Bleed, Chronic Constipation Musculoskeletal: Yes Arthritis Endocrine: No HEENT: No Cancer: Yes (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) Lung What Type of Treatment Did You: Chemotherapy, Radiation, Other Psychosocial: No Anxiety Integumentary: Yes (nicotine discoloration of the hands) Blood Disorders: No Family Medical History No Pertinent Family Hx Physical Exam Vital Signs Vital Signs - First Documented 05/03/20 07:06 Temp 36.8 Pulse 101 Resp 20 B/P (MAP) 131/67 (88) Pulse Ox 98 O2 Delivery Room Air Capillary Refill : Less Than 3 Seconds Height/Weight/BMI Height: 6'0" Weight: 147lbs. oz. [id number]; 17.00 BMI Method:Stated General Appearance: no apparent distress, cachetic HEENT: other (slughtly dry mucous membranes) Neck: non-tender, full range of motion, supple, normal inspection Respiratory: chest non-tender, no respiratory distress, no accessory muscle use, rhonchi Cardiovascular: normal peripheral pulses, regular rate, rhythm Gastrointestinal: normal bowel sounds, soft, no pulsatile mass, tenderness (mild epigastric), other (colostomy present in LLQ) Neurologic/Psychiatric: alert, oriented x 3 Skin: normal color, warm/dry Progress/Results/Core Measures Results/Orders Lab Results Laboratory Tests Test 05/03/20 07:20 05/03/20 09:20 Range/Units White Blood Count 9.5 4.3-11.0 10^3/uL Red Blood Count 3.96 L 4.35-5.85 10^6/uL Hemoglobin 12.1 L 13.3-17.7 G/DL Hematocrit 35 L 40-54 % Mean Corpuscular Volume 87 80-99 FL Mean Corpuscular Hemoglobin 31 25-34 PG Mean Corpuscular Hemoglobin Concent 35 32-36 G/DL Red Cell Distribution Width 12.8 10.0-14.5 % Platelet Count 294 130-400 10^3/uL Mean Platelet Volume 9.5 7.4-10.4 FL Immature Granulocyte % (Auto) 0 % Neutrophils (%) (Auto) 82 H 42-75 % Lymphocytes (%) (Auto) 12 12-44 % Monocytes (%) (Auto) 6 0-12 % Eosinophils (%) (Auto) 0 0-10 % Basophils (%) (Auto) 0 0-10 % Neutrophils # (Auto) 7.8 1.8-7.8 X 10^3 Lymphocytes # (Auto) 1.2 1.0-4.0 X 10^3 Monocytes # (Auto) 0.5 0.0-1.0 X 10^3 Eosinophils # (Auto) 0.0 0.0-0.3 10^3/uL Basophils # (Auto) 0.0 0.0-0.1 10^3/uL Immature Granulocyte # (Auto) 0.0 0.0-0.1 10^3/uL Prothrombin Time 14.7 12.2-14.7 SEC INR Comment 1.1 0.8-1.4 Activated Partial Thromboplast Time 42 H 24-35 SEC Sodium Level 140 135-145 MMOL/L Potassium Level 3.4 L 3.6-5.0 MMOL/L Chloride Level 106 98-107 MMOL/L Carbon Dioxide Level 22 21-32 MMOL/L Anion Gap 12 5-14 MMOL/L Blood Urea Nitrogen 5 L 7-18 MG/DL Creatinine 0.89 0.60-1.30 MG/DL Estimat Glomerular Filtration Rate > 60 BUN/Creatinine Ratio 6 Glucose Level 119 H 70-105 MG/DL Calcium Level 8.6 8.5-10.1 MG/DL Corrected Calcium 9.2 8.5-10.1 MG/DL Total Bilirubin 0.2 0.1-1.0 MG/DL Aspartate Amino Transf (AST/SGOT) 10 5-34 U/L Alanine Aminotransferase (ALT/SGPT) 5 0-55 U/L Alkaline Phosphatase 182 H 40-136 U/L Total Protein 6.1 L 6.4-8.2 GM/DL Albumin 3.3 3.2-4.5 GM/DL Lipase 18 8-78 U/L Urine Color YELLOW Urine Clarity CLEAR Urine pH 6.0 5-9 Urine Specific [place] <=1.005 1.016-1.022 Urine Protein NEGATIVE NEGATIVE Urine Glucose (UA) NEGATIVE NEGATIVE Urine Ketones NEGATIVE NEGATIVE Urine Nitrite NEGATIVE NEGATIVE Urine Bilirubin NEGATIVE NEGATIVE Urine Urobilinogen 0.2 < = 1.0 MG/DL Urine Leukocyte Esterase NEGATIVE NEGATIVE Urine RBC (Auto) NEGATIVE NEGATIVE Urine RBC NONE /HPF Urine WBC RARE /HPF Urine Squamous Epithelial Cells NONE /HPF Urine Crystals NONE /LPF Urine Bacteria NEGATIVE /HPF Urine Casts PRESENT /LPF Urine Hyaline Casts 2-5 H /LPF Urine Mucus NEGATIVE /LPF Urine Culture Indicated NO My Orders Orders - SERAFIN SINGER MD Comprehensive Metabolic Panel (05/03/20 07:11) Lipase (05/03/20 07:11) Ua Culture If Indicated (05/03/20 07:11) Ed Iv/Invasive Line Start (05/03/20 07:11) Cbc With Automated Diff (05/03/20 07:11) Protime With Inr (05/03/20 07:11) Partial Thromboplastin Time (05/03/20 07:11) Ns Iv 1000 Ml (Sodium Chloride 0.9%) (05/03/20 07:12) Ondansetron Injection (Zofran Injectio (05/03/20 07:12) Pantoprazole Injection (Protonix Injecti (05/03/20 07:12) Ct Abdomen/Pelvis W (05/03/20 07:12) Iohexol Injection (Omnipaque 350 Mg/Ml 1 (05/03/20 07:30) Received Contrast (Hold Metformin- Contr (05/03/20 07:30) Ns (Ivpb) (Sodium Chloride 0.9% Ivpb Bag (05/03/20 07:30) Medications Given in ED Current Medications Medications Dose Ordered Sig/Cortney Route Start Time Stop Time Status Last Admin Dose Admin Iohexol 100 ml ONCE ONCE IV 05/03/20 07:30 05/03/20 08:27 DC 05/03/20 08:40 100 ML Sodium Chloride 100 ml ONCE ONCE IV 05/03/20 07:30 05/03/20 08:27 DC 05/03/20 08:40 100 ML Vital Signs/I&O 05/03/20 05/03/20 07:06 10:13 Temp 36.8 Pulse 101 93 Resp 20 16 B/P (MAP) 131/67 (88) 127/73 Pulse Ox 98 98 O2 Delivery Room Air Room Air Blood Pressure Mean: 88 Progress Progress Note #1: Progress Note obtain basic labs, urine and CT scan of abdomen/pelvis. Try IVF for hydration, Zofran for nausea, Protonix for epigastric discomfort. Progress Note #2: Time: 08:09 Progress Note CBC stable without elevation of WBC count. Chemistry stable with mild hypokalemia of 3.4. Still pending a CT scan and urinalysis. Progress Note #3: Progress Note CT scan does not show any obstruction or blockage. The urinalysis was clear of infection. Patient reported that he was feeling better after treatment. Advised to follow a low-fat bland diet. Try Zofran for nausea and vomiting. Keep appointment tomorrow with Dr. Mullen. Diagnostic Imaging Diagonstic Imaging: CT Plain Films/CT/US/NM/MRI: abdomen, pelvis Comments NAME: NATALY RITCHIE REC#: [id number] PT STATUS: REG ER : 1960 PHYSICIAN: SERAFIN SINGER MD ADMIT DATE: 05/03/20/ER FS Draft Date of Exam:05/03/20 CT ABDOMEN/PELVIS W PROCEDURE: CT abdomen and pelvis with contrast. TECHNIQUE: Multiple contiguous axial images were obtained through the abdomen and pelvis after administration of intravenous contrast. Auto Exposure Controls were utilized during the CT exam to meet ALARA standards for radiation dose reduction. INDICATION: Epigastric pain with nausea and vomiting. COMPARISON: 03/19/2020. DISCUSSION: The lung bases are unremarkable. Normal heart size. No pleural or pericardial fluid. The gallbladder is contracted. The liver, pancreas, stomach, spleen, and adrenal glands are unremarkable. No hydronephrosis or renal mass. Bilateral cysts are noted, benign. Aortobifemoral graft is present which appears patent. Prostate is mildly enlarged. The bladder is unremarkable. Suture line is noted within the distal sigmoid colon. No constipation. Colon is mostly decompressed. This likely accounts for the somewhat thick-walled appearance. Mild colitis is not entirely excluded. No abnormal small bowel loops are identified. Severe L1 compression fracture is increased from the prior. Mild L2 compression fracture is stable. IMPRESSION: 1. No obstruction or constipation. Thick-walled appearance of the colon is likely due to lack of distention though underlying mild colitis is not excluded. 2. Worsening L1 compression fracture. Dictated on workstation # [id number] Dict: 05/03/20 0850 Trans: 05/03/20 0900 [facility] [id number] Interpreted by: BEKAH SIBLEY MD Electronically signed by: Departure Impression Primary Impression: Gastritis Qualified Codes: K29.70 - Gastritis, unspecified, without bleeding Additional Impression: Nausea and vomiting Qualified Codes: R11.2 - Nausea with vomiting, unspecified Disposition: 01 HOME, SELF-CARE Condition: Stable Departure-Patient Inst. Decision time for Depature: 09:48 Referrals: RYAN MULLEN MD (PCP/Family) Primary Care Physician Patient Instructions: Nausea and Vomiting, Adult (DC), Gastritis (DC) Add. Discharge Instructions: Your labs and CT scan of the abdomen and pelvis appear stable today and do not show obstruction. You could use the dissolving nausea medicine to help keep your stomach settled. Follow a low fat bland diet. Keep your appointment with Dr. Self on MondayMay 04 for further concerns and problems. All discharge instructions reviewed with patient and/or family. Voiced understanding. Scripts Ondansetron (Ondansetron Odt) 4 Mg Tab.rapdis 4 MG PO Q6H PRN for NAUSEA/VOMITING for 2 Days, #8 TAB 0 Refills Prov: SERAFIN SINGER MD 05/03/20 SERAFIN SINGER MD May 03, 2020 07:19
[2020-05-03] MEDS ORDERED: IOHEXOL 350 MG/ML 100 ML (OMNIPAQUE 350) VIAL IV ONE (07:30)
[2020-05-03] MEDS ORDERED: HOLD METFORMIN - RECEIVED CONTRAST 20 ML VIAL IV SCH (07:30)
[2020-05-03] MEDS ORDERED: NS 100 ML (IVPB) BAG IV ONE (07:30)
[2020-05-03 07:55] LABS: INR 1.1 (0.8-1.4); PROTHROMBIN TIME PATIENT 14.7 SEC (12.2-14.7)
[2020-05-03 07:56] LABS: BASOPHILS % (AUTO) 0 % (0-10); EOSINOPHILS % (AUTO) 0 % (0-10); HEMATOCRIT 35 % (40-54); HEMOGLOBIN 12.1 G/DL (13.3-17.7); LYMPHOCYTES % (AUTO) 12 % (12-44); MEAN CORPUSCULAR HEMOGLOBIN 31 PG (25-34); MEAN CORPUSCULAR HGB CONC 35 G/DL (32-36); MEAN CORPUSCULAR VOLUME 87 FL (80-99); MEAN PLATELET VOLUME 9.5 FL (7.4-10.4); NEUTROPHILS % (AUTO) 82 % (42-75); PLATELET COUNT 294 10^3/uL (130-400); WHITE BLOOD COUNT 9.5 10^3/uL (4.3-11.0)
[2020-05-03 07:57] LABS: LYMPHOCYTES # (AUTO) 1.2 X 10^3 (1.0-4.0); MONOCYTES # (AUTO) 0.5 X 10^3 (0.0-1.0); MONOCYTES % (AUTO) 6 % (0-12); NEUTROPHILS # (AUTO) 7.8 X 10^3 (1.8-7.8)
[2020-05-03 07:59] LABS: ALANINE AMINOTRANSFERASE 5 U/L (0-55); ALBUMIN 3.3 GM/DL (3.2-4.5); ALKALINE PHOSPHATASE 182 U/L (40-136); BILIRUBIN,TOTAL 0.2 MG/DL (0.1-1.0); BUN/CREATININE RATIO 6; CALCIUM 8.6 MG/DL (8.5-10.1); CARBON DIOXIDE 22 MMOL/L (21-32); CHLORIDE 106 MMOL/L (98-107); CREATININE SERUM 0.89 MG/DL (0.60-1.30); GFR ESTIMATED > 60; GLUCOSE 119 MG/DL (70-105); LIPASE 18 U/L (8-78); POTASSIUM 3.4 MMOL/L (3.6-5.0); SODIUM 140 MMOL/L (135-145); TOTAL PROTEIN 6.1 GM/DL (6.4-8.2)
--- NOTE | 2020-05-03 09:00 | Diagnostic Imaging Report ---
PROCEDURE: CT abdomen and pelvis with contrast. TECHNIQUE: Multiple contiguous axial images were obtained through the abdomen and pelvis after administration of intravenous contrast. Auto Exposure Controls were utilized during the CT exam to meet ALARA standards for radiation dose reduction. INDICATION: Epigastric pain with nausea and vomiting. COMPARISON: 03/19/2020. DISCUSSION: The lung bases are unremarkable. Normal heart size. No pleural or pericardial fluid. The gallbladder is contracted. The liver, pancreas, stomach, spleen, and adrenal glands are unremarkable. No hydronephrosis or renal mass. Bilateral cysts are noted, benign. Aortobifemoral graft is present which appears patent. Prostate is mildly enlarged. The bladder is unremarkable. Suture line is noted within the distal sigmoid colon. No constipation. Colon is mostly decompressed. This likely accounts for the somewhat thick-walled appearance. Mild colitis is not entirely excluded. No abnormal small bowel loops are identified. Severe L1 compression fracture is increased from the prior. Mild L2 compression fracture is stable. IMPRESSION: 1. No obstruction or constipation. Thick-walled appearance of the colon is likely due to lack of distention though underlying mild colitis is not excluded. 2. Worsening L1 compression fracture. Dictated by: Dictated on workstation # [id number]
[2020-05-03 09:41] LABS: BACTERIA,URINE NEGATIVE /HPF; BILIRUBIN,URINE NEGATIVE (NEGATIVE); CLARITY,URINE CLEAR; COLOR,URINE YELLOW; GLUCOSE, URINE (UA) NEGATIVE (NEGATIVE); KETONES,URINE NEGATIVE (NEGATIVE); LEUKOCYTE ESTERASE ,URINE NEGATIVE (NEGATIVE); NITRITE,URINE NEGATIVE (NEGATIVE); PROTEIN,URINE NEGATIVE (NEGATIVE); WBC,URINE RARE /HPF
[2020-05-03] MEDS ORDERED: ONDA4TAB11 PO (09:53)
[2020-05-03 10:13] VITALS: BP 127/73
== END 2020-05-03 10:13 | disposition home or self-care (01) ==
LOC: EDUNIT# 06:53 → ER FS 06:58
DX: K29.70 Gastritis, unspecified, without bleeding (principal); R11.2 Nausea with vomiting, unspecified; K21.9 Gastro-esophageal reflux disease without esophagitis; I25.2 Old myocardial infarction; G40.909 Epilepsy, unspecified, not intractable, without status epilepticus; F41.9 Anxiety disorder, unspecified; Z85.118 Personal history of other malignant neoplasm of bronchus and lung; F17.210 Nicotine dependence, cigarettes, uncomplicated; Z88.5 Allergy status to narcotic agent; Z88.8 Allergy status to other drugs, medicaments and biological substances; Z79.52 Long term (current) use of systemic steroids
CPT/HCPCS: 36415; 74177; 80053; 81000; 83690; 85025; 85610; 85730

== ENCOUNTER 2020-05-26 15:23 | Outpatient (RCR) | payer MEDICAID | END 2020-08-24 | disposition home or self-care (01) | LOC: ONC 15:23 | PROVIDERS: ATTEND Internal Medicine Hematology & Oncology | DX: C34.11 Malignant neoplasm of upper lobe, right bronchus or lung (principal); C79.31 Secondary malignant neoplasm of brain; C79.71 Secondary malignant neoplasm of right adrenal gland; G40.909 Epilepsy, unspecified, not intractable, without status epilepticus; E83.42 Hypomagnesemia; F17.210 Nicotine dependence, cigarettes, uncomplicated; I25.10 Atherosclerotic heart disease of native coronary artery without angina pectoris; I25.2 Old myocardial infarction; M97.01XA Periprosthetic fracture around internal prosthetic right hip joint, initial encounter; K56.609 Unspecified intestinal obstruction, unspecified as to partial versus complete obstruction; I73.9 Peripheral vascular disease, unspecified; D64.89 Other specified anemias; E78.00 Pure hypercholesterolemia, unspecified; M19.90 Unspecified osteoarthritis, unspecified site; I63.9 Cerebral infarction, unspecified; I50.9 Heart failure, unspecified; Z93.3 Colostomy status; Z82.0 Family history of epilepsy and other diseases of the nervous system; Z95.5 Presence of coronary angioplasty implant and graft; Z95.1 Presence of aortocoronary bypass graft; Z79.899 Other long term (current) drug therapy; Z79.82 Long term (current) use of aspirin ==

== ENCOUNTER → 2020-05-26 | Outpatient (CLI) | payer MEDICAID ==
[~2020-05-26] MED LIST changes: +ONDA4TAB11 PO
--- NOTE | 2020-05-26 12:48 | Diagnostic Imaging Report ---
PROCEDURE: CT right lower extremity without contrast. TECHNIQUE: Axially acquired CT was obtained through the right lower extremity without intravenous contrast. Coronal and sagittal reformations were also performed. Auto Exposure Controls were utilized during the CT exam to meet ALARA standards for radiation dose reduction. INDICATION: Right hip pain COMPARISON: CT of the abdomen and pelvis from 05/03/2020. FINDINGS: There is internal fixation of the right femoral neck fracture with a short femoral nail and a cephalo-cervical screw. No hardware fracture is seen. No loosening is seen. There is bony bridging across the fracture site involving approximately 70% of the fracture site, without significant bridging seen at the anterior cortex. No definite osteonecrosis or articular surface collapse is seen. No soft tissue masses or fluid collections are seen on this noncontrast CT. There are surgical clips in the right inguinal region as well as avascular. IMPRESSION: 1. Internal fixation of the proximal right femur fracture with bony bridging and no hardware complication seen. Dictated by: Dictated on workstation # [id number]
--- NOTE | 2020-05-26 13:10 | Diagnostic Imaging Report ---
Exam: CT left hip without contrast. Date: May 26, 2020. Indication: 59-year-old male, left hip pain. Comparison: None. Technique: Axial CT images of the left hip were obtained without contrast. Coronal and sagittal reformats were obtained and provided. All CT scans use one or more of the following dose optimizing techniques: automated exposure control, MA and/or KvP adjustment based on a patient size and exam type, or iterative reconstruction. . Findings: There is no identified acute fracture. The left hip is not dislocated. There is no joint space loss of the left hip, osteophyte formation, or subchondral cystic change. There is no concerning bone lesion. There is no CT apparent sizable fluid collection or mass. There are atherosclerotic calcifications. There is a left common femoral artery stent graft present. Impression: 1. Grossly unremarkable CT of the left hip. Dictated by: Dictated on workstation # [id number]
--- NOTE | 2020-05-26 13:13 | Diagnostic Imaging Report ---
Procedure: CT lumbar spine without contrast. Technique: Multiple contiguous axial images were obtained through the lumbar spine without the use of intravenous contrast. Sagittal and coronal reformations were then performed. Auto Exposure Controls were utilized during the CT exam to meet ALARA standards for radiation dose reduction. Date: May 26, 2020. Indication: 59-year-old male, low back pain. Comparison: Lumbar spine radiographs April 22, 2019. Findings: There is a new compression deformity of the L1 vertebral body with a visible fracture line. There is approximately 50% height loss anteriorly. There is no retropulsed fracture fragment. There is no fracture involvement of the posterior elements. There is a stable L2 compression deformity since at least April 22, 2019 with roughly 25% vertebral body height loss. The lumbar disc heights are well preserved. The facet joints are unremarkable. CT is limited for assessment of disc pathology as well as additional nonbony causes of pathology in the spinal canal. There is transitional lumbosacral anatomy. The sacroiliac joints are unremarkable in appearance. There are atherosclerotic calcifications. There is an infrarenal abdominal aortic aneurysm centered in the region of its bifurcation measuring up to approximately 2.3 x 2.7 cm in diameter. 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 Stent graft material in the level of the aortic bifurcation. Vascular assessment is limited without the use of intravenous contrast. Impression: 1. Acute compression fracture of the L1 vertebral body with approximately 50% height loss anteriorly and no retropulsed fracture fragment. 2. Remote prior compression deformity of L2. 3. Additional lumbosacral anatomy. If spinal intervention is to be performed in the future, recommend careful correlation with levels. 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 Dictated by: Dictated on workstation # [id number]
--- NOTE | 2020-05-26 14:13 | Diagnostic Imaging Report ---
PROCEDURE: MR imaging of the brain without contrast. TECHNIQUE: Multiplanar, multisequence MR imaging of the brain was performed without contrast. INDICATION: Lung cancer The previous MRI brain exam on 11/01/2018 failed to show any sign of an acute intracranial abnormality. There is no evidence for metastatic disease either. On the diffusion series of this exam there is no abnormal signal arising from the brain to suggest an area of acute ischemia. There is no mass, shift of the midline or hemorrhage identified either. The ventricles are not abnormally dilated and stable in size when compared to prior study. There are senescent changes seen on the previous study including periventricular encephalomalacia and cortical atrophy are again visualized and no different. The sella is not enlarged and the expected carotid flow voids are evident bilaterally. The orbits are symmetrical and within normal limits. The sinuses are generally clear. There is still mild mucosal thickening of both maxillary antrum and perhaps a small retention cyst in the right right maxillary antrum. The 7th and 8th nerve complexes are unremarkable. IMPRESSION: 1. There is no sign of an acute intracranial abnormality. There is no evidence of a mass lesion to suggest metastatic disease. However intravenous contrast was not utilized for this exam. 2. The senescent changes seen previously are again visualized and no different. Dictated by: Dictated on workstation # [id number]
== END ==
LOC: RAD 11:22
PROVIDERS: ATTEND Family Medicine
DX: G40.909 Epilepsy, unspecified, not intractable, without status epilepticus (principal); M48.56XA Collapsed vertebra, not elsewhere classified, lumbar region, initial encounter for fracture
CPT/HCPCS: 70551; 72131; 73700

== ENCOUNTER → 2020-08-18 | Outpatient (CLI) | payer MEDICAID ==
[2020-08-18 15:36] LABS: BASOPHILS # (AUTO) 0.1 10^3/uL (0.0-0.1); BASOPHILS % (AUTO) 1 % (0-10); EOSINOPHILS # (AUTO) 0.3 10^3/uL (0.0-0.3); EOSINOPHILS % (AUTO) 3 % (0-10); HEMATOCRIT 37 % (40-54); HEMOGLOBIN 12.2 g/dL (13.3-17.7); LYMPHOCYTES # (AUTO) 2.2 10^3/uL (1.0-4.0); LYMPHOCYTES % (AUTO) 23 % (12-44); MEAN CORPUSCULAR HEMOGLOBIN 30 pg (25-34); MEAN CORPUSCULAR HGB CONC 33 g/dL (32-36); MEAN CORPUSCULAR VOLUME 91 fL (80-99); MEAN PLATELET VOLUME 9.8 fL (9.0-12.2); MONOCYTES % (AUTO) 11 % (0-12); NEUTROPHILS # (AUTO) 5.9 10^3/uL (1.8-7.8); NEUTROPHILS % (AUTO) 62 % (42-75); PLATELET COUNT 238 10^3/uL (130-400); WHITE BLOOD COUNT 9.5 10^3/uL (4.3-11.0)
[2020-08-18 15:55] LABS: ALANINE AMINOTRANSFERASE 12 U/L (0-55); ALBUMIN 3.6 GM/DL (3.2-4.5); ALKALINE PHOSPHATASE 144 U/L (40-136); BILIRUBIN,TOTAL 0.2 MG/DL (0.1-1.0); BUN/CREATININE RATIO 9; CALCIUM 8.3 MG/DL (8.5-10.1); CARBON DIOXIDE 24 MMOL/L (21-32); CHLORIDE 109 MMOL/L (98-107); CREATININE SERUM 1.11 MG/DL (0.60-1.30); GFR ESTIMATED > 60; GLUCOSE 85 MG/DL (70-105); POTASSIUM 3.6 MMOL/L (3.6-5.0); SODIUM 141 MMOL/L (135-145); TOTAL PROTEIN 6.6 GM/DL (6.4-8.2)
== END ==
LOC: ONC 15:11
PROVIDERS: ATTEND Internal Medicine Hematology & Oncology
DX: C34.91 Malignant neoplasm of unspecified part of right bronchus or lung (principal); C79.31 Secondary malignant neoplasm of brain; J44.9 Chronic obstructive pulmonary disease, unspecified; D64.9 Anemia, unspecified; I25.10 Atherosclerotic heart disease of native coronary artery without angina pectoris
CPT/HCPCS: 80053; 85025; G0463

== ENCOUNTER 2020-10-12 11:35 | Outpatient (RCR) | payer MEDICAID ==
[2020-12-29] MEDS ORDERED: CEFD300C3 PO (13:37)
[2020-12-29] MEDS ORDERED: Bethanechol Chl PO (13:37)
[2020-12-29] MEDS ORDERED: TMSL.4C PO (13:37)
== END 2020-12-17 | disposition home or self-care (01) ==
LOC: ONC 11:35
PROVIDERS: ATTEND Internal Medicine Hematology & Oncology
DX: Z45.2 Encounter for adjustment and management of vascular access device (principal); C34.11 Malignant neoplasm of upper lobe, right bronchus or lung; C79.31 Secondary malignant neoplasm of brain; C79.71 Secondary malignant neoplasm of right adrenal gland; G40.909 Epilepsy, unspecified, not intractable, without status epilepticus; E83.42 Hypomagnesemia; F17.210 Nicotine dependence, cigarettes, uncomplicated; I25.10 Atherosclerotic heart disease of native coronary artery without angina pectoris; I25.2 Old myocardial infarction; M97.01XA Periprosthetic fracture around internal prosthetic right hip joint, initial encounter; K56.609 Unspecified intestinal obstruction, unspecified as to partial versus complete obstruction; I73.9 Peripheral vascular disease, unspecified; D64.89 Other specified anemias; E78.00 Pure hypercholesterolemia, unspecified; M19.90 Unspecified osteoarthritis, unspecified site; I63.9 Cerebral infarction, unspecified; I50.9 Heart failure, unspecified; Z93.3 Colostomy status; Z82.0 Family history of epilepsy and other diseases of the nervous system; Z95.5 Presence of coronary angioplasty implant and graft; Z95.1 Presence of aortocoronary bypass graft; Z79.899 Other long term (current) drug therapy; Z79.82 Long term (current) use of aspirin
CPT/HCPCS: 96523

== ENCOUNTER 2020-12-19 14:33 | Emergency (ER) | payer MEDICAID ==
[~2020-12-19] VITALS: Ht 182.9 cm; Wt 63.5 kg
--- NOTE | 2020-12-19 15:01 | ED Fall/Injury ---
General Chief Complaint: Trauma-Non Activation Stated Complaint: FALL Nursing Triage Note: see triage note Source: patient, EMS History of Present Illness Date Seen by Provider: December 19, 2020 Time Seen by Provider: 14:41 Initial Comments 60-year-old male presenting with complaints of low back pain and pain into the left hip and thigh since falling backwards from a standing height on December 17. He denies hitting his head or losing consciousness. He states that he had to have neighbors come help him get up into a chair. He reports having cancer and having difficulty swallowing. He has caregivers that help him at home but they did not come on or Monday. He states that his pain was a little bit better today but when he finally got a caregiver to come over to help him they called EMS. He reports that the pain is worse when he tries to get up and walk. He has tried to use a walker but still is unable to bear weight on the left leg. He continues to smoke any cigarettes. He has coughing due to the smoking. He states as long as he is not moving his leg he is not having any pain. With movement of the left leg his pain goes to a 10 out of 10. Occurred: other (December 17) Severity: severe (with movement or standing) Injuries/Pain Location: back, pelvis, lower extremity (left hip and thigh) Context: lost balance Loss of Consciousness: no loss of consciousness Modifying Factors: Improves With Immobilization; Worse With Movement Associated Symptoms (Fall): No Abdominal Pain, No Chest Pain, No Confusion, No Dizziness, No Headache, No Lightheadedness, No Muscle Spasms, No Nausea/Vomiting, No Neck Pain, No Ringing in Ears, No Seizures; Shortness of Air (chronic due to smoking); No Slurred Speech; Trouble Walking (due to pain in left leg/hip); No Vision Changes Allergies and Home Medications Allergies Coded Allergies: nitroglycerin (Verified Allergy, Unknown, 04/14/16) morphine (Verified Adverse Reaction, Mild, nausea, 01/15/19) Home Medications Alprazolam 0.5 Mg Tablet, 0.5 MG PO BID PRN for ANXIETY, (Reported) Atorvastatin Calcium 10 Mg Tablet, 10 MG PO HS, (Reported) Ergocalciferol (Vitamin D2) 1,250 Mcg Capsule, 1,250 MCG PO MONDAY, (Reported) Fluoxetine HCl 20 Mg Capsule, 20 MG PO DAILY, (Reported) Gabapentin 300 Mg Capsule, 300 MG PO TID, (Reported) Metoprolol Tartrate 25 Mg Tablet, 25 MG PO BID, (Reported) Mirtazapine 30 Mg Tablet, 15 MG PO HS, (Reported) TAKES OF A 30MG TAB Olanzapine 10 Mg Tablet, 10 MG PO HS, (Reported) Ondansetron 4 Mg Tab.rapdis, 4 MG PO Q6H PRN for NAUSEA/VOMITING Prescribed by: SERAFIN SINGER on 05/03/20 0953 Oxycodone HCl 20 Mg Tab.er.12h, 20 MG PO BID, (Reported) Oxycodone HCl/Acetaminophen 1 Each Tablet, 1 EA PO Q6H PRN for PAIN-SEVERE (8- 10) Prescribed by: SERAFIN SINGER on 12/19/20 1707 Pantoprazole Sodium 40 Mg Tablet.dr, 40 MG PO DAILY, (Reported) Phenytoin Sodium Extended 100 Mg Capsule, 100 MG PO QID, (Reported) Prednisone 50 Mg Tab, 50 MG PO DAILY, (Reported) Sennosides/Docusate Sodium 1 Each Tablet, 1 EACH PO BID, (Reported) Patient Home Medication List Home Medication List Reviewed: Yes Review of Systems Review of Systems Constitutional: No chills, No fever Eyes: No Symptoms Reported Ears, Nose, Mouth, Throat: no symptoms reported Respiratory: see HPI Cardiovascular: no symptoms reported Gastrointestinal: loss of appetite Genitourinary: no symptoms reported Musculoskeletal: see HPI Skin: no symptoms reported Psychiatric/Neurological: Denies Headache Past Uhxcycb-Kbfrjx-Vfhtmh Hx Past Med/Social Hx: Reviewed Nursing Past Med/Soc Hx Patient Social History Alcohol Use: Denies Use Smoking Status: Current Everyday Smoker Type Used: Cigarettes 2nd Hand Smoke Exposure: No Recent Infectious Disease Expo: No Recent Hopitalizations: No Immunizations Up To Date Date of Pneumonia Vaccine: May 11, 2016 Date of Influenza Vaccine: May 02, 2019 Seasonal Allergies Seasonal Allergies: No Past Medical History Surgeries: Yes (colostomy, port (left), toe amputation) Bowel Surgery, Cardiac Respiratory: No Cardiac: Yes Coronary Artery Disease, Heart Attack Neurological: Yes Seizure Disorder Genitourinary: No Gastrointestinal: Yes (colostomy) Gastroesophageal Reflux, Gastrointestinal Bleed, Chronic Constipation Musculoskeletal: Yes Arthritis Endocrine: No HEENT: No Cancer: Yes (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) Lung What Type of Treatment Did You: Chemotherapy, Radiation, Other Psychosocial: No Anxiety Integumentary: Yes (nicotine discoloration of the hands) Blood Disorders: No Family Medical History No Pertinent Family Hx Physical Exam Vital Signs Vital Signs - First Documented 12/19/20 14:43 Temp 37.4 Pulse 78 Resp 18 B/P (MAP) 134/71 (92) Pulse Ox 93 O2 Delivery Room Air Capillary Refill : Less Than 3 Seconds Height, Weight, BMI Height: 6'0" Weight: 147lbs. oz. 66.267701ut; 18.00 BMI Method:Stated General Appearance: no apparent distress, thin (cachectic appearance, disheveled with poor hygiene) Neck: non-tender Cardiovascular: normal peripheral pulses, regular rate, rhythm Respiratory: chest non-tender, no respiratory distress, no accessory muscle use, decreased breath sounds, wheezing Gastrointestinal: non tender, soft, no pulsatile mass, other (colostomy bag present) Extremities: normal range of motion, normal capillary refill, pelvis stable, other (tender to left thigh and groin area with movement of left leg) Neurologic/Psychiatric: alert, oriented x 3 Skin: warm/dry Elroy Coma Score Best Eye Response: (4) Open Spontaneously Best Verbal Response: (5) Oriented Best Motor Response: (6) Obeys Commands Rupali Total: 15 Progress/Results/Core Measures Results/Orders My Orders Orders - SERAFIN SINGER MD Ct Lumbar Spine Wo (12/19/20 14:54) Ct Pelvis Wo (12/19/20 14:54) Femur 2 View Left (12/19/20 14:54) Oxycodone/Apap 5/325mg Tablet (Percocet (12/19/20 17:03) Oxycodone/Apap 5/325mg Tablet (Percocet (12/19/20 17:15) Vital Signs/I&O 12/19/20 14:43 Temp 37.4 Pulse 78 Resp 18 B/P (MAP) 134/71 (92) Pulse Ox 93 O2 Delivery Room Air Blood Pressure Mean: 92 Progress Progress Note #1: Progress Note with his history of prior compression fractures and injury will order CT of Lumbar spine and pelvis along with femur xrays. Offered pain medicine but pt states he does not have pain if he is not moving so he did not want to take anything right now. Advised if he changes his mind to let me know. Progress Note #2: Progress Note Imaging shows stable chronic findings in the lumbar spine with previous compression fractures but no acute changes. His femur does not show any acute fracture or dislocation. There is a minimally displaced left inferior pubic ramus fracture seen on the femur x-rays on my review of the films. The CT pelvis does show the inferior pubic ramus fracture but no other fractures were seen. Counseled patient on these results and findings and discussed admission for pain control and rehab. Patient refused since he was told that there is no surgical treatment for this and it would heal on its own. He states he already has a walker at home and healthcare workers that come to help him at home. Since he is in a 1 room apartment he felt that he could manage things at home. He does have OxyContin that he takes for chronic pain and just filled that on December 09. He refused to be admitted for pain control so a prescription for immediate release oxycodone in the form of Percocet was prescribed. Advised t hat if she was having worsening symptoms or problems and unable to control things at home to check with his primary provider about increasing his assistance at home or helping admit him for rehab and skilled care Diagnostic Imaging Diagonstic Imaging: CT Plain Films/CT/US/NM/MRI: pelvis Comments [facility], [place] NAME: NATALY RITCHIE [facility] REC#: [id number] PT STATUS: REG ER : 1960 PHYSICIAN: SERAFIN SINGER MD ADMIT DATE: 12/19/20/ER FS Signed Date of Exam:12/19/20 CT PELVIS WO PROCEDURE: CT pelvis without contrast. TECHNIQUE: Multiple contiguous axial images were obtained through the pelvis without the use of intravenous contrast. Sagittal and coronal reformations were performed. Auto Exposure Controls were utilized during the CT exam to meet ALARA standards for radiation dose reduction. INDICATION: Fall 2 days ago, back pain. Study compared with abdominal pelvic CT 05/03/2020. FINDINGS: Asymmetric transitional anatomy with sacralization of the right L5 vertebral body segment, this is developmental and chronic. No diastases of the SI joints. Sacrococcygeal curvature appeared normal. There is no presacral mass, hemorrhage or fluid collection. No sacral fracture deformity is identified. The iliac wings are intact. There is subtle fracture in the left inferior pubic ramus which was nondisplaced and there would be an expected fracture at the superior ramus, however this cannot be identified. Acetabulum intact. There are postsurgical changes to the right femoral neck with old healed deformity. No residual or recurrent right hip fracture. Pubic ring is intact. The symphysis show degenerative change without diastases. There is no pelvic mass, hemorrhage or fluid collection. The left femoral head, neck, trochanter and subtrochanteric shaft normal. There are arthritic changes the bilateral hips. No articular collapse. IMPRESSION: 1. Subtle fracture left inferior pubic ramus nondisplaced without adjacent hemorrhage this is new from 2019, however its precise acuity is indeterminate. No corresponding superior rami fracture can be identified. No symphyseal or SI joint diastases. Postsurgical right femoral neck and asymmetric developmental transitional anatomy across the lumbosacral junction. 2. No intra or extra peritoneal pelvic hematoma. No free fluid Dictated by: Dictated on workstation # [id number] Dict: 12/19/20 1554 Trans: 12/19/20 1637 [id number] Interpreted by: ZAC SELLERS Electronically signed by: ZAC SELLERS 12/19/20 8707 Diagonstic Imaging: CT Plain Films/CT/US/NM/MRI: other (lumbar spine) Comments [facility], [place] NAME: NATALY RITCHIE [facility] REC#: [id number] PT STATUS: REG ER : 1960 PHYSICIAN: SERAFIN SINGER MD ADMIT DATE: 12/19/20/ER FS Signed Date of Exam:12/19/20 CT LUMBAR SPINE WO PROCEDURE: CT lumbar spine without contrast. TECHNIQUE: Multiple contiguous axial images were obtained through the lumbar spine without the use of intravenous contrast. Sagittal and coronal reformations were then performed. Auto Exposure Controls were utilized during the CT exam to meet ALARA standards for radiation dose reduction. INDICATION: Fall, back pain, femur pain. COMPARISON: Lumbar CT dated 05/26/2020. CT LUNGS: Old middle to anterior 3rd L1 vertebral body fracture, sclerotic, and shows no progressive stature loss. More mild concavity to the superior endplate of L2 is also unchanged from the prior. L3, L4 and L5 have a normal stature with a chronic endplate Schmorl's node deformity eccentric to the left at the L4 inferior endplate, stable. No paravertebral mass, hemorrhage or fluid collection. The posterior elements and transverse processes intact. There is asymmetric transitional anatomy across the lumbosacral junction with partial lumbarization of the right L5 segment. This is also chronic. The SI joints show no diastasis. No acute appearing abnormality. IMPRESSION: Stable chronic L1 and L2 compression fractures. No new spinal injury or acute abnormality. Dictated by: Dictated on workstation # [id number] Dict: 12/19/20 155 Trans: 12/19/201636 PJE [id number] Interpreted by: ZAC SELLERS Electronically signed by: ZAC SELLERS 12/19/201636 Diagonstic Imaging: Xray Plain Films/CT/US/NM/MRI: femur Comments [facility] [place] NAME: NATALY RITCHIE [facility] REC#: [id number] PT STATUS: REG ER : 1960 PHYSICIAN: SERAFIN SINGER MD ADMIT DATE: 12/19/20/ER FS Signed Date of Exam:12/19/20 FEMUR 2 VIEW LEFT INDICATION: Left leg pain. TIME OF EXAM: 3:21 p.m. EXAMINATION: Multiple views of the left femur were obtained. FINDINGS: Normal alignment at the hip and knee. Femur is intact. No fracture is identified. IMPRESSION: No acute bony abnormality is detected. Dictated by: Dictated on workstation # [id number] Dict: 12/19/20 155 Trans: 12/19/20 162 PJE [id number] Interpreted by: MARISA ZAMBRANO MD Electronically signed by: MARISA ZAMBRANO MD 12/19/201625 Departure Impression Primary Impression: Closed fracture of left inferior pubic ramus Qualified Codes: S32.592A - Other specified fracture of left pubis, initial encounter for closed fracture Additional Impression: Fall at home Qualified Codes: W19.XXXA - Unspecified fall, initial encounter; Y92.009 - Unspecified place in unspecified non-institutional (private) residence as the place of occurrence of the external cause Disposition: 01 HOME, SELF-CARE Condition: Stable Departure-Patient Inst. Decision time for Depature: 17:08 Referrals: RYAN MULLEN MD (PCP/Family) Primary Care Physician Patient Instructions: How to Use a Walker, Pelvic Fracture (DC) Add. Discharge Instructions: You have a pubic ramus fracture on the left side. This will cause you to have pain when you try to bear weight and it will cause pain to go into your thigh and upper leg. Use a walker to help with getting around and bear weight as you tolerate it on the left leg Use your pain medicine to help control your pain from the pelvis fracture. Follow up with Dr. Mullen and the clinic and if you are not able to manage at home they may need to have you do a short stay with Rehab facility or [facility] to help until you can ambulate and get around better All discharge instructions reviewed with patient and/or family. Voiced understanding. Scripts Oxycodone HCl/Acetaminophen (Percocet 10-325 mg Tablet) 1 Each Tablet 1 EA PO Q6H PRN for PAIN-SEVERE (8-10) for 5 Days, #20 TAB 0 Refills Prov: SERAFIN SINGER MD 12/19/20 SERAFIN SINGER MD December 19, 2020 15:01
--- NOTE | 2020-12-19 15:57 | Diagnostic Imaging Report ---
INDICATION: Left leg pain. TIME OF EXAM: 3:21 p.m. EXAMINATION: Multiple views of the left femur were obtained. FINDINGS: Normal alignment at the hip and knee. Femur is intact. No fracture is identified. IMPRESSION: No acute bony abnormality is detected. Dictated by: Dictated on workstation # [id number]
--- NOTE | 2020-12-19 16:08 | Diagnostic Imaging Report ---
PROCEDURE: CT pelvis without contrast. TECHNIQUE: Multiple contiguous axial images were obtained through the pelvis without the use of intravenous contrast. Sagittal and coronal reformations were performed. Auto Exposure Controls were utilized during the CT exam to meet ALARA standards for radiation dose reduction. INDICATION: Fall 2 days ago, back pain. Study compared with abdominal pelvic CT 05/03/2020. FINDINGS: Asymmetric transitional anatomy with sacralization of the right L5 vertebral body segment, this is developmental and chronic. No diastases of the SI joints. Sacrococcygeal curvature appeared normal. There is no presacral mass, hemorrhage or fluid collection. No sacral fracture deformity is identified. The iliac wings are intact. There is subtle fracture in the left inferior pubic ramus which was nondisplaced and there would be an expected fracture at the superior ramus, however this cannot be identified. Acetabulum intact. There are postsurgical changes to the right femoral neck with old healed deformity. No residual or recurrent right hip fracture. Pubic ring is intact. The symphysis show degenerative change without diastases. There is no pelvic mass, hemorrhage or fluid collection. The left femoral head, neck, trochanter and subtrochanteric shaft normal. There are arthritic changes the bilateral hips. No articular collapse. IMPRESSION: 1. Subtle fracture left inferior pubic ramus nondisplaced without adjacent hemorrhage this is new from 2020, however its precise acuity is indeterminate. No corresponding superior rami fracture can be identified. No symphyseal or SI joint diastases. Postsurgical right femoral neck and asymmetric developmental transitional anatomy across the lumbosacral junction. 2. No intra or extra peritoneal pelvic hematoma. No free fluid Dictated by: Dictated on workstation # [id number]
--- NOTE | 2020-12-19 16:30 | Diagnostic Imaging Report ---
PROCEDURE: CT lumbar spine without contrast. TECHNIQUE: Multiple contiguous axial images were obtained through the lumbar spine without the use of intravenous contrast. Sagittal and coronal reformations were then performed. Auto Exposure Controls were utilized during the CT exam to meet ALARA standards for radiation dose reduction. INDICATION: Fall, back pain, femur pain. COMPARISON: Lumbar CT dated 05/26/2020. CT LUNGS: Old middle to anterior 3rd L1 vertebral body fracture, sclerotic, and shows no progressive stature loss. More mild concavity to the superior endplate of L2 is also unchanged from the prior. L3, L4 and L5 have a normal stature with a chronic endplate Schmorl's node deformity eccentric to the left at the L4 inferior endplate, stable. No paravertebral mass, hemorrhage or fluid collection. The posterior elements and transverse processes intact. There is asymmetric transitional anatomy across the lumbosacral junction with partial lumbarization of the right L5 segment. This is also chronic. The SI joints show no diastasis. No acute appearing abnormality. IMPRESSION: Stable chronic L1 and L2 compression fractures. No new spinal injury or acute abnormality. Dictated by: Dictated on workstation # [id number]
[2020-12-19] MEDS ORDERED: oxyCODONE/APAP 5/325MG (PERCOCET 5) TABLET ONE (17:03)
[2020-12-19] MEDS ORDERED: oxyCODONE/APAP 10/325MG (PERCOCET 10) TABLET PO STA (17:04)
[2020-12-19] MEDS ORDERED: OXYC1TAB12 PO (17:07)
[2020-12-19] MEDS ORDERED: oxyCODONE/APAP 5/325MG (PERCOCET 5) TABLET PO ONE (17:15)
[2020-12-19 17:17] VITALS: BP 122/64
== END 2020-12-19 17:17 | disposition home or self-care (01) ==
LOC: EDUNIT# 14:33 → ER FS 14:40
DX: S32.592A Other specified fracture of left pubis, initial encounter for closed fracture (principal); I25.2 Old myocardial infarction; K21.9 Gastro-esophageal reflux disease without esophagitis; G40.909 Epilepsy, unspecified, not intractable, without status epilepticus; F41.9 Anxiety disorder, unspecified; F17.210 Nicotine dependence, cigarettes, uncomplicated; Z88.5 Allergy status to narcotic agent; Z88.8 Allergy status to other drugs, medicaments and biological substances; Z79.899 Other long term (current) drug therapy; Z79.52 Long term (current) use of systemic steroids; W01.0XXA Fall on same level from slipping, tripping and stumbling without subsequent striking against object, initial encounter
CPT/HCPCS: 72131; 72192; 73552

== ENCOUNTER 2020-12-21 13:46 | Inpatient (IN) | payer MEDICAID ==
[~2020-12-21] VITALS: Ht 172 cm; Wt 70.1 kg
[2020-12-21] MEDS ORDERED: NS IV 1000 ML 1,000 ML IV STA (13:53)
--- NOTE | 2020-12-21 14:03 | ED General ---
General Chief Complaint: Respiratory Problems Stated Complaint: SOB Source of Information: Patient, EMS, Old Records History of Present Illness Date Seen by Provider: December 21, 2020 Time Seen by Provider: 13:44 Initial Comments 60-year-old male presenting by EMS with complaints of increased shortness of breath and left pelvic and leg pains. He was seen in the emergency department on Monday after having a fall earlier in the week. He states that he is been sitting in a chair the entire time since the fall. He was diagnosed with a pubic ramus fracture on December 19 and advised to be admitted for rehab and assistance. Patient refused at the time and stated that he had people to come help him at home and has a walker at home. However since he got home he has continued to just sit in a chair. He presents today because of some increased shortness of breath and cough. He has swelling in his legs unless he elevates them. He denies any pain in chest and no pain or swelling in his calves currently. He has a concentrator for oxygen at home due to his lung cancer and COPD but he states he rarely uses it. He continues to smoke cigarettes as well. He denies any additional fall since the one last week that prompted his ED visit on MondayDecember 19. Timing/Duration: 6-7 Days Severity: Moderate Modifying Factors: worse with Movement (short of breath with exertion) Associated Systoms: No Chest Pain; Cough (chronic but feels it is worse); No Diaphoresis, No Fever/Chills, No Headaches, No Loss of Appetite; Malaise; No Nausea/Vomiting, No Rash, No Seizure; Shortness of Air (chronic from COPD and lung cancer but feels it is worse now); No Syncope; Weakness (generalized) Allergies and Home Medications Allergies Coded Allergies: nitroglycerin (Verified Allergy, Unknown, 04/14/16) morphine (Verified Adverse Reaction, Mild, nausea, 01/15/19) Home Medications Alprazolam 0.5 Mg Tablet, 0.5 MG PO BID PRN for ANXIETY, (Reported) Atorvastatin Calcium 10 Mg Tablet, 10 MG PO HS, (Reported) Ergocalciferol (Vitamin D2) 1,250 Mcg Capsule, 1,250 MCG PO MONDAY, (Reported) Fluoxetine HCl 20 Mg Capsule, 20 MG PO DAILY, (Reported) Gabapentin 300 Mg Capsule, 300 MG PO TID, (Reported) Metoprolol Tartrate 25 Mg Tablet, 25 MG PO BID, (Reported) Mirtazapine 30 Mg Tablet, 15 MG PO HS, (Reported) TAKES OF A 30MG TAB Olanzapine 10 Mg Tablet, 10 MG PO HS, (Reported) Ondansetron 4 Mg Tab.rapdis, 4 MG PO Q6H PRN for NAUSEA/VOMITING Prescribed by: SERAFIN SINGER on 05/03/20 0953 Oxycodone HCl 20 Mg Tab.er.12h, 20 MG PO BID, (Reported) Oxycodone HCl/Acetaminophen 1 Each Tablet, 1 EA PO Q6H PRN for PAIN-SEVERE (8- 10) Prescribed by: SERAFIN SHARMART on 12/19/20 1707 Pantoprazole Sodium 40 Mg Tablet.dr, 40 MG PO DAILY, (Reported) Phenytoin Sodium Extended 100 Mg Capsule, 100 MG PO QID, (Reported) Prednisone 50 Mg Tab, 50 MG PO DAILY, (Reported) Sennosides/Docusate Sodium 1 Each Tablet, 1 EACH PO BID, (Reported) Patient Home Medication List Home Medication List Reviewed: Yes Review of Systems Review of Systems Constitutional: No chills, No diaphoresis, No fever; malaise, weakness ( general) EENTM: no symptoms reported Respiratory: see HPI Cardiovascular: No chest pain Gastrointestinal: no symptoms reported Genitourinary: no symptoms reported Musculoskeletal: see HPI, other (continued pain in left pelvis into left thigh/femur) Skin: no symptoms reported Psychiatric/Neurological: Denies Headache Hematologic/Lymphatic: Denies Blood Clots Past [id number] Hx Past Med/Social Hx: Reviewed Nursing Past Med/Soc Hx Patient Social History Alcohol Use: Denies Use Smoking Status: Current Everyday Smoker Type Used: Cigarettes 2nd Hand Smoke Exposure: No Recent Hopitalizations: No Immunizations Up To Date Date of Pneumonia Vaccine: May 11, 2016 Date of Influenza Vaccine: May 02, 2019 Seasonal Allergies Seasonal Allergies: No Past Medical History Surgeries: Yes (colostomy, port (left), toe amputation) Bowel Surgery, Cardiac Respiratory: No Cardiac: Yes Coronary Artery Disease, Heart Attack Neurological: Yes Seizure Disorder Genitourinary: No Gastrointestinal: Yes (colostomy) Gastroesophageal Reflux, Gastrointestinal Bleed, Chronic Constipation Musculoskeletal: Yes Arthritis Endocrine: No HEENT: No Cancer: Yes (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 oz. 66.865737dv; 18.00 BMI Method:Stated General Appearance: No Apparent Distress, Chronically ill, Cachetic HEENT: PERRL/EOMI, Pharynx Normal Neck: Non Tender, Supple Respiratory: Chest Non Tender, No Accessory Muscle Use, No Respiratory Distress, Decreased Breath Sounds, Rhonci; No Stridor; Wheezing Cardiovascular: Regular Rate, Rhythm, Normal Peripheral Pulses Gastrointestinal: No Pulsatile Mass, Non Tender, Soft, Other (colostomy bag present with brown colored stool in bag) Rectal: Deferred Extremity: Normal Capillary Refill, Normal Range of Motion, No Calf Tenderness, No Pedal Edema, Other (pain in left thigh/groin with movement of left hip and leg) Neurologic/Psychiatric: Alert, Oriented x3, irrigation teacher II-XII Norm as Tested Skin: Warm/Dry Focused Exam Lactate Level 12/21/20 13:50: Lactic Acid Level 1.50 Lactic Acid Level Laboratory Tests Test 12/21/20 13:50 Lactic Acid Level 1.50 MMOL/L (0.50-2.00) Progress/Results/Core Measures Suspected Sepsis SIRS Temperature: Pulse: Respiratory Rate: Laboratory Tests 12/21/20 13:50: White Blood Count 12.7H Blood Pressure / Mean: 12/21/20 13:50: Lactic Acid Level 1.50 Laboratory Tests 12/21/20 13:50: Creatinine 0.93, Platelet Count 181, Total Bilirubin 0.7 Results/Orders Lab Results Laboratory Tests Test 12/21/20 13:50 Range/Units White Blood Count 12.7 H 4.3-11.0 10^3/uL Red Blood Count 3.97 L 4.35-5.85 10^6/uL Hemoglobin 11.9 L 13.3-17.7 G/DL Hematocrit 35 L 40-54 % Mean Corpuscular Volume 89 80-99 FL Mean Corpuscular Hemoglobin 30 25-34 PG Mean Corpuscular Hemoglobin Concent 34 32-36 G/DL Red Cell Distribution Width 13.7 10.0-14.5 % Platelet Count 181 130-400 10^3/uL Mean Platelet Volume 10.7 H 7.4-10.4 FL Immature Granulocyte % (Auto) 0 % Neutrophils (%) (Auto) 77 H 42-75 % Lymphocytes (%) (Auto) 9 L 12-44 % Monocytes (%) (Auto) 12 0-12 % Eosinophils (%) (Auto) 2 0-10 % Basophils (%) (Auto) 0 0-10 % Neutrophils # (Auto) 9.7 H 1.8-7.8 X 10^3 Lymphocytes # (Auto) 1.2 1.0-4.0 X 10^3 Monocytes # (Auto) 1.5 H 0.0-1.0 X 10^3 Eosinophils # (Auto) 0.3 0.0-0.3 10^3/uL Basophils # (Auto) 0.1 0.0-0.1 10^3/uL Immature Granulocyte # (Auto) 0.1 0.0-0.1 10^3/uL Sodium Level 141 135-145 MMOL/L Potassium Level 3.3 L 3.6-5.0 MMOL/L Chloride Level 103 98-107 MMOL/L Carbon Dioxide Level 26 21-32 MMOL/L Anion Gap 12 5-14 MMOL/L Blood Urea Nitrogen 12 7-18 MG/DL Creatinine 0.93 0.60-1.30 MG/DL Estimat Glomerular Filtration Rate > 60 BUN/Creatinine Ratio 13 Glucose Level 104 70-105 MG/DL Lactic Acid Level 1.50 0.50-2.00 MMOL/L Calcium Level 8.7 8.5-10.1 MG/DL Corrected Calcium 9.2 8.5-10.1 MG/DL Magnesium Level 1.6 1.6-2.4 MG/DL Total Bilirubin 0.7 0.1-1.0 MG/DL Aspartate Amino Transf (AST/SGOT) 18 5-34 U/L Alanine Aminotransferase (ALT/SGPT) 15 0-55 U/L Alkaline Phosphatase 135 40-136 U/L C-Reactive Protein 10.92 H <0.50 MG/DL Total Protein 6.4 6.4-8.2 GM/DL Albumin 3.4 3.2-4.5 GM/DL My Orders Orders - SERAFIN SINGER MD Cbc With Automated Diff (12/21/20 13:53) Comprehensive Metabolic Panel (12/21/20 13:53) Blood Culture (12/21/20 13:53) Magnesium (12/21/20 13:53) O2 (12/21/20 13:53) Ed Iv/Invasive Line Start (12/21/20 13:53) Sputum Culture (12/21/20 13:53) Monitor-Rhythm Ecg Trace Only (12/21/20 13:53) Crp Fs (12/21/20 13:53) Lactic Acid Analyzer (12/21/20 13:53) Ct Angio Chest W (12/21/20 13:53) Ns Iv 1000 Ml (Sodium Chloride 0.9%) (12/21/20 13:53) Iohexol Injection (Omnipaque 350 Mg/Ml 1 (12/21/20 15:00) Received Contrast (Hold Metformin- Contr (12/21/20 15:00) Sodium Chloride Flush (Catheter Flush Sy (12/21/20 15:00) Ns (Ivpb) (Sodium Chloride 0.9% Ivpb Bag (12/21/20 15:00) Medications Given in ED Current Medications Medications Dose Ordered Sig/Cortney Route Start Time Stop Time Status Last Admin Dose Admin Iohexol 100 ml ONCE ONCE IV 12/21/20 15:00 12/21/20 15:11 DC 12/21/20 15:12 100 ML Sodium Chloride 10 ml NEEDED PRN IV 12/21/20 15:00 12/21/20 15:12 10 ML Sodium Chloride 100 ml ONCE ONCE IV 12/21/20 15:00 12/21/20 15:11 DC 12/21/20 15:12 100 ML Vital Signs/I&O 12/21/20 13:46 Temp 36.8 Pulse 87 Resp 22 B/P (MAP) 117/87 (97) Pulse Ox 96 O2 Delivery Room Air Capillary Refill : Progress Note #1: Progress Note Although patient had refused admission over the weekend he states that he would be willing to be admitted now for his pubic ramus fracture and to get assistance with ambulation and rehab. He is concerned that he has developed a pneumonia with not moving around. Will obtain blood work and cultures with a lactic acid. Since he does have a history of lung cancer and now this pubic ramus fracture with decreased activity and sitting in her chair for several days will obtain a CT scan of the chest to evaluate for pulmonary embolism. Differential diagnosis includes pulmonary embolism, COPD exacerbation, debilitation from not moving due to pain with pubic ramus fracture, electrolyte imbalance, pneumonia Progress Note #2: Time: 14:48 Progress Note CBC has an elevated white blood cell count to 12.7 with a left shift. His lactic acid is normal at 1.5. His electrolytes and chemistry panel otherwise does not show acute significant abnormality. He does have an elevated CRP. Awaiting CT angiogram of chest to evaluate for pneumonia or pulmonary embolism. Progress Note #3: Time: 15:[address] angiogram shows no PE and stable lung mass from prior imaging. New development of left lower lobe infiltrate. Will start him on antibiotics and fluids and contact Dr. Del Rosario the director of dementia operations doctor for [facility] about admit. Diagnostic Imaging Diagonstic Imaging: CT Plain Films/CT/US/NM/MRI: chest Comments NAME: NATALY RITCHIE [facility] REC#: [id number] PT STATUS: REG ER : 1960 PHYSICIAN: SERAFIN SINGER MD ADMIT DATE: 12/21/20/ER FS Draft Date of Exam:12/21/20 CT ANGIO CHEST W PROCEDURE: CT angiography of the chest with contrast. TECHNIQUE: Multiple contiguous axial images were obtained through the chest after uneventful bolus administration of intravenous contrast. 3D reconstructed CTA MIP acquisitions were also performed. Auto Exposure Controls were utilized during the CT exam to meet ALARA standards for radiation dose reduction. INDICATION: Cough and shortness of breath. Comparison is made to prior CT chest from 03/06/2020. Evaluation of the pulmonary arterial system is without evidence of thromboembolism. No filling defects are seen within central, lobar segmental branches. The thoracic aorta is normal caliber. There is no dissection. No pericardial or pleural fluid is identified. The previously noted right apical mass with central calcification appears be fairly stable in size at 2.6 x 2.8 cm compared with 2.6 x 3.0 cm on prior. Centrilobular emphysematous changes throughout both lungs persist. Patient has developed parenchymal consolidation in the left lower lobe, suggestive of pneumonia. Subcarinal lymphadenopathy demonstrates short axis measurement 1.8 cm compared with 1.6 cm on prior. There are some prominent lymph nodes in the radha as well. No axillary lymphadenopathy is seen. A left chest wall port has tip in SVC. Upper abdomen is unremarkable. IMPRESSION: 1. No evidence of pulmonary embolism or thoracic aortic dissection. 2. Stable right apical lung mass. 3. Stable mediastinal and hilar lymphadenopathy. 4. Development of left lower lobe consolidation consistent with pneumonia. Dictated on workstation # [id number] Dict: 12/21/20 1521 Trans: 12/21/20 1534 CVB [id number] Interpreted by: MARISA ZAMBRANO MD Electronically signed by: Reviewed: Reviewed by Me Departure Communication (Admissions) Time/Spoke to Admitting Phy: 16:[address] Del Rosario as the on-call doctor for [facility] about admission for his pneumonia and left pubic ramus fracture. Impression Primary Impression: Left lower lobe pneumonia Qualified Codes: J18.9 - Pneumonia, unspecified organism Additional Impressions: Closed fracture of left inferior pubic ramus Qualified Codes: S32.592D - Other specified fracture of left pubis, subsequent encounter for fracture with routine healing Dyspnea Qualified Codes: R06.02 - Shortness of breath Left lower lobe pulmonary infiltrate Disposition: 30 STILL A PATIENT Condition: Stable Admissions Decision to Admit Reason: Admit from ER (General) Decision to Admit/Date: December 21, 2020 Time/Decision to Admit Time: 16:14 Departure-Patient Inst. Referrals: RYAN CAPPS MD (PCP/Family) Primary Care Physician SERAFIN SINGER MD December 21, 2020 14:03
[2020-12-21 14:31] LABS: BASOPHILS % (AUTO) 0 % (0-10); EOSINOPHILS % (AUTO) 2 % (0-10); HEMATOCRIT 35 % (40-54); HEMOGLOBIN 11.9 G/DL (13.3-17.7); LYMPHOCYTES % (AUTO) 9 % (12-44); MEAN CORPUSCULAR HEMOGLOBIN 30 PG (25-34); MEAN CORPUSCULAR HGB CONC 34 G/DL (32-36); MEAN CORPUSCULAR VOLUME 89 FL (80-99); MEAN PLATELET VOLUME 10.7 FL (7.4-10.4); MONOCYTES % (AUTO) 12 % (0-12); PLATELET COUNT 181 10^3/uL (130-400); WHITE BLOOD COUNT 12.7 10^3/uL (4.3-11.0)
[2020-12-21 14:32] LABS: BASOPHILS # (AUTO) 0.1 10^3/uL (0.0-0.1); EOSINOPHILS # (AUTO) 0.3 10^3/uL (0.0-0.3); LYMPHOCYTES # (AUTO) 1.2 X 10^3 (1.0-4.0); MONOCYTES # (AUTO) 1.5 X 10^3 (0.0-1.0); NEUTROPHILS # (AUTO) 9.7 X 10^3 (1.8-7.8); NEUTROPHILS % (AUTO) 77 % (42-75)
[2020-12-21 14:39] LABS: BUN/CREATININE RATIO 13; CALCIUM 8.7 MG/DL (8.5-10.1); CARBON DIOXIDE 26 MMOL/L (21-32); CHLORIDE 103 MMOL/L (98-107); CREATININE SERUM 0.93 MG/DL (0.60-1.30); GFR ESTIMATED > 60; GLUCOSE 104 MG/DL (70-105); POTASSIUM 3.3 MMOL/L (3.6-5.0); SODIUM 141 MMOL/L (135-145)
[2020-12-21 14:40] LABS: ALANINE AMINOTRANSFERASE 15 U/L (0-55); ALBUMIN 3.4 GM/DL (3.2-4.5); ALKALINE PHOSPHATASE 135 U/L (40-136); BILIRUBIN,TOTAL 0.7 MG/DL (0.1-1.0); MAGNESIUM 1.6 MG/DL (1.6-2.4); TOTAL PROTEIN 6.4 GM/DL (6.4-8.2)
[2020-12-21] MEDS ORDERED: NS 100 ML (IVPB) BAG IV ONE (15:00)
[2020-12-21] MEDS ORDERED: HOLD METFORMIN - RECEIVED CONTRAST 20 ML VIAL IV SCH (15:00)
[2020-12-21] MEDS ORDERED: CATHETER FLUSH 10 ML SYR IV PRN ×2 (15:00→20:30)
[2020-12-21] MEDS ORDERED: IOHEXOL 350 MG/ML 100 ML (OMNIPAQUE 350) VIAL IV ONE (15:00)
--- NOTE | 2020-12-21 15:34 | Diagnostic Imaging Report ---
PROCEDURE: CT angiography of the chest with contrast. TECHNIQUE: Multiple contiguous axial images were obtained through the chest after uneventful bolus administration of intravenous contrast. 3D reconstructed CTA MIP acquisitions were also performed. Auto Exposure Controls were utilized during the CT exam to meet ALARA standards for radiation dose reduction. INDICATION: Cough and shortness of breath. Comparison is made to prior CT chest from 03/06/2020. Evaluation of the pulmonary arterial system is without evidence of thromboembolism. No filling defects are seen within central, lobar segmental branches. The thoracic aorta is normal caliber. There is no dissection. No pericardial or pleural fluid is identified. The previously noted right apical mass with central calcification appears be fairly stable in size at 2.6 x 2.8 cm compared with 2.6 x 3.0 cm on prior. Centrilobular emphysematous changes throughout both lungs persist. Patient has developed parenchymal consolidation in the left lower lobe, suggestive of pneumonia. Subcarinal lymphadenopathy demonstrates short axis measurement 1.8 cm compared with 1.6 cm on prior. There are some prominent lymph nodes in the radha as well. No axillary lymphadenopathy is seen. A left chest wall port has tip in SVC. Upper abdomen is unremarkable. IMPRESSION: 1. No evidence of pulmonary embolism or thoracic aortic dissection. 2. Stable right apical lung mass. 3. Stable mediastinal and hilar lymphadenopathy. 4. Development of left lower lobe consolidation consistent with pneumonia. Dictated by: Dictated on workstation # [id number]
[2020-12-21] MEDS ORDERED: CEFEPIME INJECTION 1,000 MG in WATER (STERILE) FOR INJECTION 10 ML IV STA (15:43)
[2020-12-21 18:00] VITALS: BP 152/85
[2020-12-21 19:19] VITALS: BP 129/79
[2020-12-21 19:32] VITALS: BP 117/87
[2020-12-21] MEDS ORDERED: RT-ALBUTEROL/IPRATROPIUM 3 ML (DUONEB) VIAL INH SCH (20:00)
[2020-12-21] MEDS ORDERED: GENTAMICIN IV SCH (20:30)
[2020-12-21] MEDS ORDERED: RT-ALBUTEROL/IPRATROPIUM 3 ML (DUONEB) VIAL INH PRN (20:30)
[2020-12-21] MEDS ORDERED: NS IV SCH (20:30)
[2020-12-21] MEDS ORDERED: ONDANSETRON 4 MG/2 ML (SDV) Z0FRAN IVP PRN (21:15)
[2020-12-21] MEDS ORDERED: guaiFENesin/CODEINE (ROBITUSSIN AC) 10ML UDC PO PRN (21:15)
[2020-12-21] MEDS ORDERED: HYDROcodone/APAP 5 MG/325 MG (LORTAB) TAB PO PRN (21:15)
[2020-12-21] MEDS ORDERED: CALCIUM CARBONATE 500 MG (TUMS) TAB.CHEW PO PRN (21:15)
[2020-12-21] MEDS ORDERED: LOPERAMIDE 2 MG (IMODIUM) TABLET PO PRN (21:15)
[2020-12-21] MEDS ORDERED: MELATONIN 3 MG TABLET PO PRN (21:15)
[2020-12-21] MEDS ORDERED: ALPRAZolam 0.25 MG (XANAX) TAB PO PRN (21:15)
[2020-12-21] MEDS ORDERED: ACETAMINOPHEN 500 MG TAB (TYLENOL) PO PRN (21:15)
[2020-12-21] MEDS ORDERED: diphenhydrAMINE 25 MG TAB (BENADRYL) PO PRN (21:15)
[2020-12-21] MEDS ORDERED: DOCUSATE SODIUM 100 MG (COLACE) CAP PO PRN (21:15)
--- NOTE | 2020-12-21 21:15 | History & Physical-Hospitalist ---
History of Present Illness HPI/Chief Complaint CC: PNA HPI: This is a 60yoWM clinic patient of [facility] who presented to the [facility] ER with fever and cough and found to have PNA. Patient had a recent fall and sustained a pelvic ramus fracture and has not been active at home since that time. He declined admit this past weekend for pain control. O2 maintained currently. Lung cancer managed by [facility]. COVID test was negative. Source: patient, RN/MD, old records Date Seen 12/21/20 Time Seen by a Provider: 19:00 Attending Physician Ros Del Rosario DO PCP Self,James ADKINS Referring Physician Date of Admission December 21, 2020 at 18:15 Home Medications & Allergies Home Medications Reviewed patient Home Medication Reconciliation performed by pharmacy medication reconciliations nursery technician and/or nursing. Patients Allergies have been reviewed. Allergies Allergies Coded Allergies nitroglycerin (Verified Allergy, Unknown, 04/14/16) morphine (Verified Adverse Reaction, Mild, nausea, 01/15/19) Patient Social History Marrital Status: single Employed/Student: unemployed Tobacco Use?: Yes Tobacco type used: Cigarettes Smoking Status: Current Everyday Smoker Alcohol Use?: No Pt stated abuse/neglect: No Immunizations Up To Date Influenza Vaccine Up-to-Date: No; Not Current Date of Pneumonia Vaccine: May 11, 2016 Current Status Communicates: Verbally Primary Language: Angolan Preferred Spoken Language: Angolan Is interpretation needed?: No Past Medical History Lung cancer COPD Intellectual delay Review of Systems Constitutional: see HPI, malaise, weakness Respiratory: cough Physical Exam Physical Exam Vital Signs Vital Signs - First Documented 12/21/20 12/21/20 12/21/20 13:46 18:00 19:32 Temp 36.8 Pulse 87 Resp 22 B/P (MAP) 117/87 (97) Pulse Ox 96 O2 Delivery Room Air O2 Flow Rate 2.00 FiO2 21 Capillary Refill : Less Than 3 Seconds Height, Weight, BMI Height: 6'0" Weight: 147lbs. oz. 66.293974hr; 21.46 BMI Method:Stated General Appearance: No Apparent Distress, Anxious, Chronically ill, Thin Eyes: Right Eye Normal Inspection, Right Eye PERRL HEENT: PERRL/EOMI, Normal ENT Inspection, Pharynx Normal, Moist Mucous Membrane s Neck: Full Range of Motion, Normal Inspection, Non Tender Respiratory: Chest Non Tender, No Accessory Muscle Use, No Respiratory Distress, Crackles, Decreased Breath Sounds, Wheezing Cardiovascular: Regular Rate, Rhythm, No Edema, No Gallop, No JVD, No Murmur, Normal Peripheral Pulses Gastrointestinal: Normal Bowel Sounds, No Organomegaly, No Pulsatile Mass, Non Tender, Soft Back: Normal Inspection, No CVA Tenderness, No Vertebral Tenderness Extremity: Normal Capillary Refill, Normal Inspection, Normal Range of Motion, Non Tender, No Calf Tenderness, No Pedal Edema Neurologic/Psychiatric: Alert, Oriented x3, No Motor/Sensory Deficits, Normal Mood/Affect Skin: Normal Color, Warm/Dry Lymphatic: No Adenopathy Results Results/Procedures Labs Laboratory Tests 12/21/20 13:50 Patient resulted labs reviewed. Assessment/Plan Admission Diagnosis Assessment: PNA Hypoxia Lung cancer Pelvic ramus fracture Severe pain Plan: Pain control IV abx O2 Nebs Admission Status: Inpatient Order (span 2 midnights) Reason for Inpatient Admission: PNA with pelvic fx Diagnosis/Problems Diagnosis/Problems (1) Left lower lobe pneumonia Status: Acute Qualifiers: Pneumonia type: due to unspecified organism Qualified Codes: J18.9 - Pneumonia, unspecified organism (2) Dyspnea Status: Acute Qualifiers: Dyspnea type: shortness of breath Qualified Codes: R06.02 - Shortness of breath (3) Closed fracture of left inferior pubic ramus Status: Acute Qualifiers: Encounter type: subsequent encounter Fracture healing: with routine healing Qualified Codes: S32.592D - Other specified fracture of left pubis, subsequent encounter for fracture with routine healing (4) Fall at home Status: Acute ROS DEL ROSARIO DO December 21, 2020 21:15
[2020-12-21] MEDS: RT-ALBUTEROL/IPRATROPIUM 3 ML (DUONEB) VIAL INH SCH (21:22)
[2020-12-21] MEDS ORDERED: fentaNYL INJ 100 MCG/2 ML AMP IVP PRN (21:30)
[2020-12-21] MEDS: ENOXAPARIN 40 MG/0.4 ML (LOVENOX) SYR SC SCH (21:45)
[2020-12-21] MEDS: NS IV 1000 ML 1,000 ML IV SCH (21:45)
[2020-12-21] MEDS: CEFEPIME 1,000 MG/SWFI 10 ML IV PUSH IV SCH ×2 (23:59)
[2020-12-22] VITALS (7 sets, daily range): BP systolic 125–159; BP diastolic 59–92
[2020-12-22] MEDS: RT-ALBUTEROL/IPRATROPIUM 3 ML (DUONEB) VIAL INH SCH ×5 (02:51→22:25)
[2020-12-22] MEDS ORDERED: TROUGH ORDER-PHARMACY XX NR (05:30)
[2020-12-22 05:42] LABS: BASOPHILS # (AUTO) 0.1 10^3/uL (0.0-0.1); BASOPHILS % (AUTO) 1 % (0-10); EOSINOPHILS # (AUTO) 0.4 10^3/uL (0.0-0.3); EOSINOPHILS % (AUTO) 4 % (0-10); HEMATOCRIT 32 % (40-54); HEMOGLOBIN 10.7 g/dL (13.3-17.7); LYMPHOCYTES # (AUTO) 1.5 10^3/uL (1.0-4.0); LYMPHOCYTES % (AUTO) 16 % (12-44); MEAN CORPUSCULAR HEMOGLOBIN 29 pg (25-34); MEAN CORPUSCULAR HGB CONC 33 g/dL (32-36); MEAN CORPUSCULAR VOLUME 89 fL (80-99); MEAN PLATELET VOLUME 10.4 fL (9.0-12.2); MONOCYTES # (AUTO) 1.3 10^3/uL (0.0-1.0); MONOCYTES % (AUTO) 14 % (0-12); NEUTROPHILS # (AUTO) 6.2 10^3/uL (1.8-7.8); NEUTROPHILS % (AUTO) 66 % (42-75); PLATELET COUNT 184 10^3/uL (130-400); WHITE BLOOD COUNT 9.4 10^3/uL (4.3-11.0)
[2020-12-22 05:59] LABS: ALBUMIN 3.1 GM/DL (3.2-4.5); CHLORIDE 104 MMOL/L (98-107); POTASSIUM 3.3 MMOL/L (3.6-5.0); SODIUM 139 MMOL/L (135-145)
[2020-12-22 06:01] LABS: GLUCOSE 90 MG/DL (70-105)
[2020-12-22 06:02] LABS: TOTAL PROTEIN 5.7 GM/DL (6.4-8.2)
[2020-12-22 06:03] LABS: BILIRUBIN,TOTAL 0.7 MG/DL (0.1-1.0); CARBON DIOXIDE 25 MMOL/L (21-32)
[2020-12-22] MEDS: CEFEPIME 1,000 MG/SWFI 10 ML IV PUSH IV SCH ×6 (06:03→17:22)
[2020-12-22] MEDS: NS IV 1000 ML 1,000 ML IV SCH (06:03)
[2020-12-22 06:05] LABS: ALKALINE PHOSPHATASE 102 U/L (40-136); CREATININE SERUM 0.82 MG/DL (0.60-1.30); GFR ESTIMATED > 60
[2020-12-22 06:06] LABS: BUN/CREATININE RATIO 12
[2020-12-22 06:08] LABS: ALANINE AMINOTRANSFERASE 15 U/L (0-55)
--- NOTE | 2020-12-22 07:03 | Progress Note - Hospitalist ---
Subjective HPI/CC On Admission Date Seen by Provider: December 22, 2020 Time Seen by Provider: 09:00 CC: PNA HPI: This is a 60yoWM clinic patient of [facility] who presented to the [facility] ER with fever and cough and found to have PNA. Patient had a recent fall and sustained a pelvic ramus fracture and has not been active at home since that time. He declined admit this past weekend for pain control. O2 maintained currently. Lung cancer managed by [facility]. COVID test was negative. Subjective/Events-last exam Pt doing pretty well today Home meds were restarted Bowels are moving PT and OT ordered DC telemetry Lungs improved but still coarse Review of Systems General: Fatigue, Malaise Pulmonary: Dyspnea, Cough Neurological: Weakness Focused Exam Lactate Level 12/21/20 13:50: Lactic Acid Level 1.50 Objective Exam Vital Signs Vital Signs Date Time Temp Pulse Resp B/P (MAP) Pulse Ox O2 Delivery O2 Flow Rate FiO2 12/23/20 04:23 36.1 72 17 121/76 (91) 93 Nasal Cannula 2.00 12/21/20 19:32 21 Capillary Refill : Less Than 3 Seconds General Appearance: No Apparent Distress, WD/WN, Chronically ill, Thin Respiratory: Crackles, Decreased Breath Sounds, Wheezing Cardiovascular: Regular Rate, Rhythm Neurologic/Psychiatric: Alert, Oriented x3, No Motor/Sensory Deficits Results/Procedures Lab Laboratory Tests 12/22/20 05:30 Patient resulted labs reviewed. Assessment/Plan Assessment and Plan Assess & Plan/Chief Complaint Assessment: PNA Hypoxia Lung cancer Pelvic ramus fracture Severe pain Plan: Pain control IV abx O2 Nebs 12/22/20: IV abx Monitor closely Diagnosis/Problems Diagnosis/Problems (1) Left lower lobe pneumonia Status: Acute Qualifiers: Pneumonia type: due to unspecified organism Qualified Codes: J18.9 - Pneumonia, unspecified organism (2) Dyspnea Status: Acute Qualifiers: Dyspnea type: shortness of breath Qualified Codes: R06.02 - Shortness of breath (3) Closed fracture of left inferior pubic ramus Status: Acute Qualifiers: Encounter type: subsequent encounter Fracture healing: with routine healing Qualified Codes: S32.592D - Other specified fracture of left pubis, subsequent encounter for fracture with routine healing (4) Fall at home Status: Acute RHIANNON DHALIWAL DO December 22, 2020 07:03
[2020-12-22] MEDS ORDERED: KCL 20 MEQ TAB (K-DUR) PO ONE (07:15)
[2020-12-22] MEDS ORDERED: SENNA W/DOCUSATE (SENOKOT S) TABLET PO SCH (09:00)
--- NOTE | 2020-12-22 09:53 | Physical Therapy Evaluation ---
PT Evaluation-General Medical Diagnosis Admission Date December 21, 2020 at 18:15 Medical Diagnosis: pneumonia/left pubic rami fracture Onset Date: December 17, 2020 Therapy Diagnosis Therapy Diagnosis: debility/weakness Height/Weight Height (Feet): 6 Height (Inches): 0 Weight (Pounds): 147 Precautions Precautions/Isolations: Contact Isolation, Fall Prevention Referral Physician: Carin Reason for Referral: Evaluation/Treatment Medical History Pertinent Medical History: Arthritis, GERD, [place], Smoking Additional Medical History lung cancer with brain and esophageal mets Current History ER x 2 secondary to SOA and left pelvic pain due to fall (refused hospital admit 12/19/20) Reviewed History: Yes Social History Home: Apartment Current Living Status: Alone Entry Into Home: Level Entry Prior Prior Level of Function SCALE: Activities may be completed with or without assistive devices. 2-Awqrhvbsbu-zocwnsd completes the activity by him/herself with no assistance from a helper. 5-Set-up or Clean-up Assistance-helper sets up or cleans up; patient completes activity. [place] assists only prior to or following the activity. 4-Supervision or Touching Assistance-helper provides verbal cues and/or touching/steadying and/or contact guard assistance as patient completes activity. Assistance may be provided throughout the activity or intermittently. 3-Partial/Moderate Assistance-helper does LESS THAN HALF the effort. [place] lifts, holds or supports trunk or limbs, but provides less than half the effort. 2-Substantial/Maximal Assistance-helper does MORE THAN HALF the effort. [place] lifts or holds trunk or limbs and provides more than half the effort. 1-Dmjmjmcjd-kitbii does ALL the effort. Patient does none of the effort to complete the activity. Or, the assistance of 2 or more helpers is required for the patient to complete the activity. If activity was not attempted, code reason: 7-Patient Refused. 9-Not Applicable-not attempted and the patient did not perform the activity before the current illness, exacerbation or injury. 10-Not Attempted due to Environmental Limitations-(lack of equipment, weather restraints, etc.). 88-Not Attempted due to Medical Conditions or Safety Concerns. Bed Mobility: 6 Transfers (B,C,W/C): 6 Gait: 6 Stairs: 9 Indoor Mobility (Ambulation): Independent Stairs: Not Applicalbe PT Evaluation-Current Subjective Patient agrees to PT. Pain Numeric Pain Scale: 5-Moderate Pain Location: Left Location Body Site: Pelvic Pain Description: Acute Objective Patient Orientation: Normal For Age Attachments: Colostomy/Ileostomy, IV ROM/Strength ROM Lower Extremities bilateral LE WFL Strength Lower Extremities 4-/5 grossly bilateral LE Integumentary/Posture Integumentary refer to nursing notes Posture kyphotic Neuromuscular (Tone, Coordination, Reflexes) grossly intact Sensory Vision: Functional Hearing: Functional Transfers Roll Left to Right (QC): 6 Sit to Lying (QC): 6 Lying to Sitting/Side of Bed(Q: 6 Sit to Stand (QC): 4 Chair/Grl-qh-Ptkjy Xfer(QC): 4 Toilet Transfer (QC): 4 CGA for safety Gait Does the Patient Walk?: Yes Mode of Locomotion: Walk Anticipated Mode of Locomotion: Walk Walk 10 feet (QC): 4 (CGA) Walk 50 ft with 2 Turns(QC): 4 (CGA) Walk 150 ft (QC): 88 Distance: 50' Gait Assistive Device: FWW Comments/Gait Description slow, antalgic with TTWB left LE by patient choice Wheelchair Training Does the Pt Use a Wheelchair?: No Balance Sitting Static: Normal Sitting Dynamic: Normal Standing Static: Fair Standing Dynamic: Fair Picking up an Object (QC): 88 Assessment/Needs 60 y.o. male, will benefit from skilled PT to address functional strength and mobility to improve current LOF to safely return to home at maximum LOF. Rehab Potential: Guarded Post Rehab Potential-Barriers: compliance PT Senior Care Goals Senior Care Goals PT Pork Cutlet Maker Goals Time Frame: January 01, 2021 Roll Left & Right (QC): 6 Sit to Lying (QC): 6 Lying-Sitting on Side/Bed(QC): 6 Sit to Stand (QC): 6 Chair/Hhi-kk-Urvok Xfer(QC): 6 Toilet Transfer (QC): 6 Does the Patient Walk: Yes Walk 10 feet (QC): 6 Walk 50ft with 2 Turns (QC): 6 Walk 150 ft (QC): 6 PT Plan Problem List Problem List: Activity Tolerance, Functional Strength, Safety, Balance, Gait, Transfer Treatment/Plan Treatment Plan: Continue Plan of Care Treatment Plan: Bed Mobility, Education, Functional Activity [place], Functional Strength, Gait, Safety, Therapeutic Exercise, Transfers Treatment Duration: January 01, 2021 Frequency: 6 times per week Estimated Hrs Per Day: .25 hour per day Patient and/or Family Agrees t: Yes Time/GCodes Time In: 820 Time Out: 837 Total Billed Treatment Time: 17 Total Billed Treatment 1 visit [facility] 17 min MICHAEL HENDERSON PT December 22, 2020 09:53
[2020-12-22] MEDS ORDERED: LEVE500T6 PO (10:46)
[2020-12-22] MEDS ORDERED: SUCR1TAB PO (10:46)
[2020-12-22] MEDS ORDERED: ALBU2.5V4 NEB (10:46)
[2020-12-22] MEDS ORDERED: MULT-1136 PO (10:46)
[2020-12-22] MEDS ORDERED: CHOL100048 PO (10:46)
[2020-12-22] MEDS ORDERED: OLAN5TAB25 PO (10:46)
[2020-12-22] MEDS ORDERED: FLUO40CA PO (10:46)
[2020-12-22] MEDS ORDERED: GABA300C PO (10:46)
[2020-12-22] MEDS: PHENYTOIN 100 MG (DILANTIN) CAP PO SCH ×2 (10:49→10:52)
[2020-12-22] MEDS: GABAPENTIN 300 MG (NEURONTIN) CAP PO SCH ×3 (10:49→20:11)
[2020-12-22] MEDS: SUCRALFATE 1 GM (CARAFATE) TAB PO SCH ×3 (12:54→20:12)
[2020-12-22] MEDS ORDERED: GABAPENTIN 300 MG (NEURONTIN) CAP PO SCH (13:00)
[2020-12-22] MEDS ORDERED: ACETAMINOPHEN 325 MG TABLET PO PRN (13:00)
--- NOTE | 2020-12-22 14:26 | Occupational Therapy Eval ---
OT Evaluation-General/PLF Medical Diagnosis Admission Date December 21, 2020 at 18:15 Medical Diagnosis: pneumonia/left pubic rami fracture Onset Date: December 17, 2020 Therapy Diagnosis Therapy Diagnosis: weakness, decreased ADL status Height/Weight Height (Feet): 6 Height (Inches): 0 Weight (Pounds): 147 Precautions Precautions/Isolations: Contact Isolation, Fall Prevention Referral Physician: Carin Referral Reason: Evaluation/Treatment Medical History Pertinent Medical History: Arthritis, GERD, [place], Smoking Additional Medical History lung cancer with brain and esophageal mets Current History ED with fever and cough, found to have PNA and recent fall sustained pelvic ramus fx Social History Home: Apartment Current Living Status: Alone Entry Into Home: Level Entry ADL-Prior Level of Function SCALE: Activities may be completed with or without assistive devices. 1-Twbqopgubc-mtyqulh completes the activity by him/herself with no assistance from a helper. 5-Set-up or Clean-up Assistance-helper sets up or cleans up; patient completes activity. [place] assists only prior to or following the activity. 4-Supervision or Touching Assistance-helper provides verbal cues and/or touch ing/steadying and/or contact guard assistance as patient completes activity. Assistance may be provided throughout the activity or intermittently. 3-Partial/Moderate Assistance-helper does LESS THAN HALF the effort. [place] lifts, holds or supports trunk or limbs, but provides less than half the effort. 2-Substantial/Maximal Assistance-helper does MORE THAN HALF the effort. [place] lifts or holds trunk or limbs and provides more than half the effort. 5-Fewtkkzxf-zhbkdt does ALL the effort. Patient does none of the effort to complete the activity. Or, the assistance of 2 or more helpers is required for the patient to complete the activity. If activity was not attempted, code reason: 7-Patient Refused. 9-Not Applicable-not attempted and the patient did not perform the activity before the current illness, exacerbation or injury. 10-Not Attempted due to Environmental Limitations-(lack of equipment, weather restraints, etc.). 88-Not Attempted due to Medical Conditions or Safety Concerns. ADL PLOF Comments Pt indicate IND with toileting, bathing, UE/LE dressing, and microwave meals. He is unable to perform footwear, wearing same socks multiple days in a row until someone is there to assist him. Self Care: Needed Some Help Functional Cognition: Independent OT Current Status Subjective Pt laying in bed, agreeable to OT evaluation and tx. Mental Status/Objective Patient Orientation: Person, Place, Situation Attachments: Oxygen Current Glasses/Contacts: No Hearing Aids: No Dentures/Partials: No Hand Dominance: Right Upper Extremity ROM WFL, BUE shoulder flexion to approx 150 degrees Upper Extremity Coordination WFL Upper Extremity Sensation Pt denies tingling/numbness at rest. States if he raises his arms overhead for too long, he gets numbness. ADL-Treatment Eating (QC): 6 (Pt reports IND with lunch) Shower/Bathe Self (QC): 1 (Total assist per pt report. Pt showered this AM with nursing staff, pt indicate he was unable to wash anything due to keeping weight off of L hip/pelvis to decrease pain.) On/Off Footwear (QC): 1 (total assist) Toileting Hygiene (QC): 5 (set up/clean up with urinal) Other Treatments Pt laying in bed, OT educated pt on purpose and benefit of OT, he verbalized understanding. Pt provided information about PLOF and home set up, and participated in UE screen. Pt states he showered this AM with nursing staff, he was unable to wash any parts himself, as he was focused on keeping weight off of L hip/pelvis due to pain. Pt also states he uses a urinal for toileting, does not need to go to bathroom at the moment. Pt states he has ostomy bag for BM. OT noted pt scooted down in bed, educated pt on using UEs and RLE to push self up towards HOB. OT lowered HOB, guiding pt's hands to handles. Pt then able to scoot towards HOB with CGA. Pt declined further ADLs at this time, and declined OOB activities. OT educated pt on OT POC while he is admitted, he verbalized understanding. Post tx, pt laying in bed, call light in reach and all needs met. Education OT Patient Education: Correct positioning, Modified ADL techniques, Progress toward Goal/Update tx plan, Purpose of tx/functional activities Teaching Recipient: Patient Teaching Methods: Discussion Response to Teaching: Verbalize Understanding OT Doll Wigs Hackler Goals [facility] Goals Time Frame: January 01, 2021 Eating (QC): 6 Oral Hygiene (QC): 6 Toileting Hygiene (QC): 3 Shower/Bathe Self (QC): 3 Upper Body Dressing (QC): 4 Lower Body Dressing (QC): 2 Additional Goals: 1-Demonstrate ADL Tasks, 2-Verbalize Understanding, 3- ImproveStrength/[place] 1=Demonstrate adherence to instructed precautions during ADL tasks. 2=Patient will verbalize/demonstrate understanding of assistive devices/modifications for ADL. 3=Patient will improve strength/tolerance for activity to enable patient to perform ADL's. OT Education/Plan Problem List/Assessment Assessment: Decreased Activ Tolerance, Decreased UE Strength, Impaired I ADL's, Impaired Self-Care Skills Discharge Recommendations Plan/Recommendations: Continue POC Treatment Plan/Plan of Care Patient would benefit from OT for education, treatment and training to promote independence in ADL's, mobility, safety and/or upper extremity function for ADL's. Plan of Care: ADL Retraining, Functional Mobility, UE Funct Exercise/Act Treatment Duration: January 01, 2021 Frequency: 5 times per week Estimated Hrs Per Day: .25 hour per day Rehab Potential: Guarded Time/GCodes Start Time: 14:00 Stop Time: 14:12 Total Time Billed (hr/min): 12 Billed Treatment Time 1CRISTOBAL ADDISON OT December 22, 2020 14:26
[2020-12-22] MEDS ORDERED: LEVOFLOXACIN 750 MG/D5W 150 ML PRE-MIX IV SCH (16:00)
[2020-12-22] MEDS: SENNA W/DOCUSATE (SENOKOT S) TABLET PO SCH (20:10)
[2020-12-22] MEDS: ALPRAZolam 0.5 MG (XANAX) TAB PO PRN (20:11)
[2020-12-22] MEDS: OLANZapine 5 MG (ZyPREXA) TAB PO SCH (20:11)
[2020-12-22] MEDS: oxyCODONE ER 20 MG (OxyCONTIN CR) TAB PO SCH (20:12)
[2020-12-22] MEDS: ENOXAPARIN 40 MG/0.4 ML (LOVENOX) SYR SC SCH (20:12)
[2020-12-22] MEDS: ATORVASTATIN 10 MG TABLET PO SCH (20:12)
[2020-12-22] MEDS: meTOprolol TARTRATE 25 MG (LOPRESSOR) TABLET PO SCH (20:12)
[2020-12-23] VITALS (8 sets, daily range): BP systolic 83–139; BP diastolic 50–87
[2020-12-23] MEDS: CEFEPIME 1,000 MG/SWFI 10 ML IV PUSH IV SCH ×10 (00:09→23:11)
[2020-12-23] MEDS: RT-ALBUTEROL/IPRATROPIUM 3 ML (DUONEB) VIAL INH SCH ×6 (02:52→22:18)
[2020-12-23] MEDS: KCL 20 MEQ TAB (K-DUR) PO SCH (05:01)
[2020-12-23] MEDS: MULTIVIT W/MINERALS TAB (THERAGRAN M) PO SCH (05:01)
[2020-12-23 06:03] LABS: BASOPHILS % (AUTO) 1 % (0-10); EOSINOPHILS # (AUTO) 0.4 10^3/uL (0.0-0.3); EOSINOPHILS % (AUTO) 4 % (0-10); HEMATOCRIT 33 % (40-54); HEMOGLOBIN 11.1 g/dL (13.3-17.7); LYMPHOCYTES # (AUTO) 1.6 10^3/uL (1.0-4.0); LYMPHOCYTES % (AUTO) 19 % (12-44); MEAN CORPUSCULAR HEMOGLOBIN 30 pg (25-34); MEAN CORPUSCULAR HGB CONC 33 g/dL (32-36); MEAN CORPUSCULAR VOLUME 90 fL (80-99); MEAN PLATELET VOLUME 10.2 fL (9.0-12.2); MONOCYTES # (AUTO) 1.1 10^3/uL (0.0-1.0); MONOCYTES % (AUTO) 12 % (0-12); NEUTROPHILS # (AUTO) 5.5 10^3/uL (1.8-7.8); NEUTROPHILS % (AUTO) 64 % (42-75); PLATELET COUNT 189 10^3/uL (130-400); WHITE BLOOD COUNT 8.7 10^3/uL (4.3-11.0)
[2020-12-23 06:12] LABS: ALBUMIN 3.1 GM/DL (3.2-4.5); CHLORIDE 105 MMOL/L (98-107); POTASSIUM 3.6 MMOL/L (3.6-5.0); SODIUM 139 MMOL/L (135-145)
[2020-12-23 06:14] LABS: CALCIUM 8.5 MG/DL (8.5-10.1)
[2020-12-23 06:15] LABS: GLUCOSE 89 MG/DL (70-105); TOTAL PROTEIN 5.8 GM/DL (6.4-8.2)
[2020-12-23 06:16] LABS: CARBON DIOXIDE 24 MMOL/L (21-32)
[2020-12-23 06:17] LABS: BILIRUBIN,TOTAL 0.5 MG/DL (0.1-1.0)
[2020-12-23 06:18] LABS: ALKALINE PHOSPHATASE 106 U/L (40-136); CREATININE SERUM 0.91 MG/DL (0.60-1.30); GFR ESTIMATED > 60
[2020-12-23 06:19] LABS: BUN/CREATININE RATIO 11
[2020-12-23] MEDS: BETHANECHOL 25 MG (URECHOLINE) TAB PO SCH ×4 (06:20→19:45)
[2020-12-23 06:21] LABS: ALANINE AMINOTRANSFERASE 16 U/L (0-55)
[2020-12-23] MEDS ORDERED: NON-FORMULARY MEDICATION 1 EA EA (Fluoxetine HCl 40 MG) PO SCH (09:00)
[2020-12-23] MEDS ORDERED: NON-FORMULARY MEDICATION 1 EA EA (Multivitamin 1 EACH) PO SCH (09:00)
[2020-12-23] MEDS ORDERED: NON-FORMULARY MEDICATION 1 EA EA (Cholecalciferol (Vitamin D3) (Vitamin D3) 25 MCG) PO SCH (09:00)
[2020-12-23] MEDS: SUCRALFATE 1 GM (CARAFATE) TAB PO SCH ×4 (09:02→19:44)
[2020-12-23] MEDS: GABAPENTIN 300 MG (NEURONTIN) CAP PO SCH ×3 (09:02→19:44)
[2020-12-23] MEDS: TAMSULOSIN 0.4 MG (FLOMAX) CAP PO SCH ×2 (09:02→19:44)
[2020-12-23] MEDS: meTOprolol TARTRATE 25 MG (LOPRESSOR) TABLET PO SCH ×2 (09:02→19:43)
[2020-12-23] MEDS: PANTOPRAZOLE 40 MG (PROTONIX) TAB PO SCH (09:03)
[2020-12-23] MEDS: VITAMIN D3 25 MCG (1,000 UNITS) TABLET PO SCH (09:03)
[2020-12-23] MEDS: FLUoxetine HCL 20 MG (PROzac) CAP PO SCH (09:03)
[2020-12-23] MEDS: SENNA W/DOCUSATE (SENOKOT S) TABLET PO SCH ×2 (09:03→19:44)
[2020-12-23] MEDS: oxyCODONE ER 20 MG (OxyCONTIN CR) TAB PO SCH ×2 (09:03→19:45)
--- NOTE | 2020-12-23 09:26 | Progress Note - Hospitalist ---
Subjective HPI/CC On Admission Date Seen by Provider: December 23, 2020 Time Seen by Provider: 09:30 CC: PNA HPI: This is a 60yoWM clinic patient of [facility] who presented to the [facility] ER with fever and cough and found to have PNA. Patient had a recent fall and sustained a pelvic ramus fracture and has not been active at home since that time. He declined admit this past weekend for pain control. O2 maintained currently. Lung cancer managed by [facility]. COVID test was negative. Subjective/Events-last exam Pt doing well Urinary retention required medication initiation and urology consultation Pt beginning to urinate now Pt very debilitated Pain from the pelvic rami fracture is significant Checked meds and labs All home meds restarted Review of Systems General: Fatigue, Malaise Pulmonary: Dyspnea, Cough Musculoskeletal: leg pain Neurological: Weakness Focused Exam Lactate Level 12/21/20 13:50: Lactic Acid Level 1.50 Objective Exam Vital Signs Vital Signs Date Time Temp Pulse Resp B/P (MAP) Pulse Ox O2 Delivery O2 Flow Rate FiO2 12/24/20 04:05 36.8 89 18 105/62 (76) 94 Nasal Cannula 5.00 12/21/20 19:32 21 Capillary Refill : Less Than 3 Seconds General Appearance: No Apparent Distress, WD/WN, Chronically ill, Thin Respiratory: No Accessory Muscle Use, No Respiratory Distress, Decreased Breath Sounds, Rales, Wheezing Cardiovascular: Regular Rate, Rhythm Neurologic/Psychiatric: Alert, Oriented x3 Results/Procedures Lab Laboratory Tests 12/23/20 05:55 Patient resulted labs reviewed. Assessment/Plan Assessment and Plan Assess & Plan/Chief Complaint Assessment: PNA Hypoxia Lung cancer Pelvic ramus fracture Severe pain Plan: Pain control IV abx O2 Nebs 12/22/20: IV abx Monitor closely 12/23/20: IV abx Nebs O2 PT OT IRF? Diagnosis/Problems Diagnosis/Problems (1) Left lower lobe pneumonia Status: Acute Qualifiers: Pneumonia type: due to unspecified organism Qualified Codes: J18.9 - Pneumonia, unspecified organism (2) Dyspnea Status: Acute Qualifiers: Dyspnea type: shortness of breath Qualified Codes: R06.02 - Shortness of breath (3) Closed fracture of left inferior pubic ramus Status: Acute Qualifiers: Encounter type: subsequent encounter Fracture healing: with routine healing Qualified Codes: S32.592D - Other specified fracture of left pubis, subsequent encounter for fracture with routine healing (4) Fall at home Status: Acute RHIANNON DHALIWAL DO December 23, 2020 09:26
--- NOTE | 2020-12-23 09:47 | Physical Therapy Daily Note ---
PT Daily Note-Current Subjective Patient in bed pre tx, agrees to PT reluctantly, has no complaints of pain at rest. Appearance Patient in recliner post tx with nurse call, phone, tray, all needs met. After tx patient states he doesn't have much pain other than with bearing weight on his left leg. Mental Status Patient Orientation: Person, Place, Situation Attachments: Oxygen Transfers SCALE: Activities may be completed with or without assistive devices. 9-Stsmyjhpjp-eqibkyi completes the activity by him/herself with no assistance from a helper. 5-Set-up or Clean-up Assistance-helper sets up or cleans up; patient completes activity. [place] assists only prior to or following the activity. 4-Supervision or Touching Assistance-helper provides verbal cues and/or touching/steadying and/or contact guard assistance as patient completes activity. Assistance may be provided throughout the activity or intermittently. 3-Partial/Moderate Assistance-helper does LESS THAN HALF the effort. [place] lifts, holds or supports trunk or limbs, but provides less than half the effort. 2-Substantial/Maximal Assistance-helper does MORE THAN HALF the effort. [place] lifts or holds trunk or limbs and provides more than half the effort. 6-Spnqwzrpn-qorjzs does ALL the effort. Patient does none of the effort to complete the activity. Or, the assistance of 2 or more helpers is required for the patient to complete the activity. If activity was not attempted, code reason: 7-Patient Refused. 9-Not Applicable-not attempted and the patient did not perform the activity before the current illness, exacerbation or injury. 10-Not Attempted due to Environmental Limitations-(lack of equipment, weather restraints, etc.). 88-Not Attempted due to Medical Conditions or Safety Concerns. Roll Left & Right (QC): 4 Lying to Sitting/Side of Bed(Q: 3 Sit to Stand (QC): 4 Chair/Pjg-rd-Khcuf Xfer(QC): 4 Gait Training Distance: 10' Walk 10 feet (QC): 3 Gait Persons Needed: 1 Gait Assistive Device: FWW very slow, antalgic, very little weight bearing on left leg, unsteady Exercises Seated Therapy Exercises: Ankle pumps, Long arc quads Seated Reps: 20 Treatments bed mobility and transfers, ambulation, LE exercise Assessment Current Status: Poor Progress worse ambulation PT Natural Resources Extension Educator Goals Natural Resources Extension Educator Goals PT Natural Resources Extension Educator Goals Time Frame: January 01, 2021 Roll Left & Right (QC): 6 Sit to Lying (QC): 6 Lying-Sitting on Side/Bed(QC): 6 Sit to Stand (QC): 6 Chair/Ihv-jg-Sdbdw Xfer(QC): 6 Toilet Transfer (QC): 6 Does the Patient Walk: Yes Walk 10 feet (QC): 6 Walk 50ft with 2 Turns (QC): 6 Walk 150 ft (QC): 6 PT Plan Problem List Problem List: Activity Tolerance, Functional Strength, Safety, Balance, Gait, Transfer, Bed Mobility, ROM Treatment/Plan Treatment Plan: Continue Plan of Care Treatment Plan: Bed Mobility, Education, Functional Activity [place], Functional Strength, Gait, Safety, Therapeutic Exercise, Transfers Treatment Duration: January 01, 2021 Frequency: 6 times per week Estimated Hrs Per Day: .25 hour per day Patient and/or Family Agrees t: Yes Safety Risks/Education Patient Education: Gait Training, Transfer Techniques, Correct Positioning, Safety Issues Teaching Recipient: Patient Teaching Methods: Demonstration, Discussion Response to Teaching: Reinforcement Needed Time/GCodes Time In: 920 Time Out: 933 Total Billed Treatment Time: 13 Total Billed Treatment 1 visit FA JORI BALTAZAR PT December 23, 2020 09:47
--- NOTE | 2020-12-23 12:07 | CONSULTATION REPORT ---
DATE OF SERVICE: 12/23/2020 ATTENDING PHYSICIAN: Dr. Del Rosario. SUMMARY: After reviewing the patient's records, interviewing him, this is a 60-year-old white man admitted for pneumonia. He has a history of lung cancer. Denies significant voiding symptoms at home, was voiding okay yesterday, but overnight and early this morning necessitated catheterization and emptying good amount of urine. He is already started on Flomax b.i.d. and Urecholine 25 before meals and at bedtime by Dr. Del Rosario. IMPRESSION: Urinary retention, benign prostatic hyperplasia and/or neurogenic bladder. PLAN: Continue present medications, but watch for respiratory adverse effect of the bethanechol and I told his nurse that. We will do a postvoid residual bladder scan and straight cath if over 400 mL and manage accordingly. Job ID: [id number] DocumentID: [id number] Dictated Date: 12/23/2020 11:39:13 Outboard Motor Tester Date: 12/23/2020 12:07:20 Dictated By: CHRISTIAN BENDER MD
--- NOTE | 2020-12-23 13:42 | Occupational Ther Daily Note ---
OT Current Status-Daily Note Subjective Pt alert, sitting in recliner. Pt agrees to therapy. No c/o pain throughout session, although would grimace during B UE exercises. Mental Status/Objective Patient Orientation: Person, Place, Time, Situation Attachments: IV ADL-Treatment Therapy Code Descriptions/Definitions Functional [place] Measure: 0=Not Assessed/NA 4=Minimal Assistance 1=Total Assistance 5=Supervision or Setup 2=Maximal Assistance 6=Modified [place] 3=Moderate Assistance 7=Complete IndependenceSCALE: Activities may be completed with or without assistive devices. 7-Roforqobkz-berxpxv completes the activity by him/herself with no assistance from a helper. 5-Set-up or Clean-up Assistance-helper sets up or cleans up; patient completes activity. [place] assists only prior to or following the activity. 4-Supervision or Touching Assistance-helper provides verbal cues and/or touching/steadying and/or contact guard assistance as patient completes activity. Assistance may be provided throughout the activity or intermittently. 3-Partial/Moderate Assistance-helper does LESS THAN HALF the effort. [place] lifts, holds or supports trunk or limbs, but provides less than half the effort. 2-Substantial/Maximal Assistance-helper does MORE THAN HALF the effort. [place] lifts or holds trunk or limbs and provides more than half the effort. 1-Lzafsqyke-pfixci does ALL the effort. Patient does none of the effort to complete the activity. Or, the assistance of 2 or more helpers is required for the patient to complete the activity. If activity was not attempted, code reason: 7-Patient Refused. 9-Not Applicable-not attempted and the patient did not perform the activity before the current illness, exacerbation or injury. 10-Not Attempted due to Environmental Limitations-(lack of equipment, weather restraints, etc.). 88-Not Attempted due to Medical Conditions or Safety Concerns. Other Treatment Pt completed 3 B UE exercises using medium resistance theraband to increase strength for daily functional tasks. 1 set 10 reps, 1 set 20 reps of each exercise-horizontal shldr abd/add, shldr abd/add, tricep extension. After therapy, pt sitting in recliner with call light/phone in reach. All needs met in room. OT Staff Trainer Goals Detention Goals Time Frame: January 01, 2021 Eating (QC): 6 Oral Hygiene (QC): 6 Toileting Hygiene (QC): 3 Shower/Bathe Self (QC): 3 Upper Body Dressing (QC): 4 Lower Body Dressing (QC): 2 Additional Goals: 1-Demonstrate ADL Tasks, 2-Verbalize Understanding, 3- ImproveStrength/[place]ameron 1=Demonstrate adherence to instructed precautions during ADL tasks. 2=Patient will verbalize/demonstrate understanding of assistive devices/modifications for ADL. 3=Patient will improve strength/tolerance for activity to enable patient to perform ADL's. OT Education/Plan Problem List/Assessment Assessment: Decreased Activ Tolerance, Decreased UE Strength Discharge Recommendations Plan/Recommendations: Continue POC Treatment Plan/Plan of Care Patient would benefit from OT for education, treatment and training to promote independence in ADL's, mobility, safety and/or upper extremity function for ADL's. Plan of Care: ADL Retraining, Functional Mobility, UE Funct Exercise/Act Treatment Duration: January 01, 2021 Frequency: 5 times per week Estimated Hrs Per Day: .25 hour per day Rehab Potential: Guarded Time/GCodes Start Time: 13:25 Stop Time: 13:37 Total Time Billed (hr/min): 12 Billed Treatment Time 1 visit-EX 1 (12 min) MARYANN APARICIO December 23, 2020 13:42
[2020-12-23] MEDS: ATORVASTATIN 10 MG TABLET PO SCH (19:44)
[2020-12-23] MEDS: ALPRAZolam 0.5 MG (XANAX) TAB PO PRN (19:44)
[2020-12-23] MEDS: OLANZapine 5 MG (ZyPREXA) TAB PO SCH (19:44)
[2020-12-23] MEDS: ENOXAPARIN 40 MG/0.4 ML (LOVENOX) SYR SC SCH (19:46)
[2020-12-24] MEDS: RT-ALBUTEROL/IPRATROPIUM 3 ML (DUONEB) VIAL INH SCH ×6 (02:16→21:41)
[2020-12-24 04:05] VITALS: BP 105/62
[2020-12-24] MEDS: BETHANECHOL 25 MG (URECHOLINE) TAB PO SCH ×4 (05:11→20:39)
[2020-12-24] MEDS: KCL 20 MEQ TAB (K-DUR) PO SCH (05:11)
[2020-12-24] MEDS: MULTIVIT W/MINERALS TAB (THERAGRAN M) PO SCH (05:11)
[2020-12-24] MEDS: CEFEPIME 1,000 MG/SWFI 10 ML IV PUSH IV SCH ×6 (05:11→16:53)
[2020-12-24 05:39] LABS: BASOPHILS # (AUTO) 0.1 10^3/uL (0.0-0.1); BASOPHILS % (AUTO) 1 % (0-10); EOSINOPHILS # (AUTO) 0.3 10^3/uL (0.0-0.3); EOSINOPHILS % (AUTO) 3 % (0-10); HEMATOCRIT 33 % (40-54); HEMOGLOBIN 10.7 g/dL (13.3-17.7); LYMPHOCYTES # (AUTO) 1.2 10^3/uL (1.0-4.0); LYMPHOCYTES % (AUTO) 12 % (12-44); MEAN CORPUSCULAR HEMOGLOBIN 30 pg (25-34); MEAN CORPUSCULAR HGB CONC 33 g/dL (32-36); MEAN CORPUSCULAR VOLUME 90 fL (80-99); MEAN PLATELET VOLUME 10.1 fL (9.0-12.2); MONOCYTES % (AUTO) 10 % (0-12); NEUTROPHILS # (AUTO) 7.5 10^3/uL (1.8-7.8); NEUTROPHILS % (AUTO) 74 % (42-75); PLATELET COUNT 206 10^3/uL (130-400); WHITE BLOOD COUNT 10.1 10^3/uL (4.3-11.0)
[2020-12-24 05:46] LABS: POTASSIUM 3.7 MMOL/L (3.6-5.0)
[2020-12-24 05:47] LABS: CALCIUM 8.7 MG/DL (8.5-10.1)
[2020-12-24 05:48] LABS: TOTAL PROTEIN 5.8 GM/DL (6.4-8.2)
[2020-12-24 05:50] LABS: BILIRUBIN,TOTAL 0.3 MG/DL (0.1-1.0)
[2020-12-24 05:52] LABS: CREATININE SERUM 1.27 MG/DL (0.60-1.30)
[2020-12-24 08:01] VITALS: BP 98/56
[2020-12-24] MEDS: GABAPENTIN 300 MG (NEURONTIN) CAP PO SCH ×3 (08:55→20:39)
[2020-12-24] MEDS: oxyCODONE ER 20 MG (OxyCONTIN CR) TAB PO SCH ×2 (08:55→20:39)
[2020-12-24] MEDS: VITAMIN D3 25 MCG (1,000 UNITS) TABLET PO SCH (08:55)
[2020-12-24] MEDS: FLUoxetine HCL 20 MG (PROzac) CAP PO SCH (08:55)
[2020-12-24] MEDS: meTOprolol TARTRATE 25 MG (LOPRESSOR) TABLET PO SCH ×3 (08:56→20:39)
[2020-12-24] MEDS: TAMSULOSIN 0.4 MG (FLOMAX) CAP PO SCH ×2 (08:56→20:39)
[2020-12-24] MEDS: SENNA W/DOCUSATE (SENOKOT S) TABLET PO SCH ×2 (08:56→20:39)
[2020-12-24] MEDS: SUCRALFATE 1 GM (CARAFATE) TAB PO SCH ×4 (08:56→20:39)
[2020-12-24] MEDS: PANTOPRAZOLE 40 MG (PROTONIX) TAB PO SCH (08:56)
--- NOTE | 2020-12-24 10:22 | Physical Therapy Daily Note ---
PT Daily Note-Current Subjective Patient agrees to PT. Pain Numeric Pain Scale: 5-Moderate Pain Location: Left Location Body Site: Pelvic Pain Description: Acute Mental Status Patient Orientation: Normal For Age Transfers SCALE: Activities may be completed with or without assistive devices. 2-Fnxxdljiyh-nhqkmnu completes the activity by him/herself with no assistance from a helper. 5-Set-up or Clean-up Assistance-helper sets up or cleans up; patient completes activity. [place] assists only prior to or following the activity. 4-Supervision or Touching Assistance-helper provides verbal cues and/or touching/steadying and/or contact guard assistance as patient completes activity. Assistance may be provided throughout the activity or intermittently. 3-Partial/Moderate Assistance-helper does LESS THAN HALF the effort. [place] lifts, holds or supports trunk or limbs, but provides less than half the effort. 2-Substantial/Maximal Assistance-helper does MORE THAN HALF the effort. [place] lifts or holds trunk or limbs and provides more than half the effort. 0-Hqntiqdvs-uobqvq does ALL the effort. Patient does none of the effort to complete the activity. Or, the assistance of 2 or more helpers is required for the patient to complete the activity. If activity was not attempted, code reason: 7-Patient Refused. 9-Not Applicable-not attempted and the patient did not perform the activity before the current illness, exacerbation or injury. 10-Not Attempted due to Environmental Limitations-(lack of equipment, weather restraints, etc.). 88-Not Attempted due to Medical Conditions or Safety Concerns. Lying to Sitting/Side of Bed(Q: 5 Sit to Stand (QC): 3 Chair/Jow-ee-Wkisj Xfer(QC): 3 Gait Training Does the Patient Walk?: Yes Distance: 50' Walk 10 feet (QC): 3 Walk 50 ft with 2 Turns(QC): 3 Gait Assistive Device: FWW slow, antalgic (ataxic sequence with left LE) Exercises Supine Ex: Ankle pumps, Quad Set, Heel Slides Supine Reps: 12 Seated Therapy Exercises: Long arc quads Seated Reps: 12 Assessment Patient tolerates minimal activity and is up in recliner with needs met. Patient requires time to complete all functional tasks. PT Retirement Goals Levers Lace Machine Operator Goals PT Levers Lace Machine Operator Goals Time Frame: January 01, 2021 Roll Left & Right (QC): 6 Sit to Lying (QC): 6 Lying-Sitting on Side/Bed(QC): 6 Sit to Stand (QC): 6 Chair/Alu-rq-Gskex Xfer(QC): 6 Toilet Transfer (QC): 6 Does the Patient Walk: Yes Walk 10 feet (QC): 6 Walk 50ft with 2 Turns (QC): 6 Walk 150 ft (QC): 6 PT Plan Treatment/Plan Treatment Plan: Continue Plan of Care Treatment Plan: Bed Mobility, Education, Functional Activity [place], Functional Strength, Gait, Safety, Therapeutic Exercise, Transfers Treatment Duration: January 01, 2021 Frequency: 6 times per week Estimated Hrs Per Day: .25 hour per day Patient and/or Family Agrees t: Yes Time/GCodes Time In: 913 Time Out: 927 Total Billed Treatment Time: 14 Total Billed Treatment 1 visit FA 14 min MICHAEL HENDERSON PT December 24, 2020 10:22
--- NOTE | 2020-12-24 11:41 | Progress Note - Urology ---
Progress Note-Urology Progress Notes/Assess & Plan Progress/Assessment & Plan NOT VOIDING HOWEVER POOR INTAKE AND OUTPUT. TOLERATES MEDS. NEEDS INCREASE FLUIDS TO REALLY EVALUATE VOIDING PATTERN Final Diagnosis RETENTION CHRISTIAN BENDER MD December 24, 2020 11:41
--- NOTE | 2020-12-24 11:42 | Occupational Ther Daily Note ---
OT Current Status-Daily Note Subjective Pt alert, sitting in recliner. Pt states that he is tired, but the pain is a little better. Pt agrees to therapy. Mental Status/Objective Patient Orientation: Person, Place, Time, Situation Attachments: Colostomy/Ileostomy, IV, Oxygen ADL-Treatment Therapy Code Descriptions/Definitions Functional [place] Measure: 0=Not Assessed/NA 4=Minimal Assistance 1=Total Assistance 5=Supervision or Setup 2=Maximal Assistance 6=Modified [place] 3=Moderate Assistance 7=Complete IndependenceSCALE: Activities may be completed with or without assistive devices. 2-Vabtabuuqp-wqqldru completes the activity by him/herself with no assistance from a helper. 5-Set-up or Clean-up Assistance-helper sets up or cleans up; patient completes activity. [place] assists only prior to or following the activity. 4-Supervision or Touching Assistance-helper provides verbal cues and/or touching/steadying and/or contact guard assistance as patient completes activity. Assistance may be provided throughout the activity or intermittently. 3-Partial/Moderate Assistance-helper does LESS THAN HALF the effort. [place] lifts, holds or supports trunk or limbs, but provides less than half the effort. 2-Substantial/Maximal Assistance-helper does MORE THAN HALF the effort. [place] lifts or holds trunk or limbs and provides more than half the effort. 4-Ujcbghowr-uswwkw does ALL the effort. Patient does none of the effort to comp lete the activity. Or, the assistance of 2 or more helpers is required for the patient to complete the activity. If activity was not attempted, code reason: 7-Patient Refused. 9-Not Applicable-not attempted and the patient did not perform the activity before the current illness, exacerbation or injury. 10-Not Attempted due to Environmental Limitations-(lack of equipment, weather restraints, etc.). 88-Not Attempted due to Medical Conditions or Safety Concerns. Other Treatment Mod A for sit to stand. Unable to lift one hand then another to simulate hiking pants while standing with FWW. Pt shaky during initial standing then decreasing. Pt fatigues quickly, does not tolerate movement or exercises well. Pt completes horizontal shldr abd/add and shldr abd/add 1 set 10 reps of medium resistance theraband. Pt unable to complete full movements due to weakness. After therapy, pt sitting in recliner with feet elevated. Call light/phone in reach. All needs met in room. OT Prison Goals Collar Band Creaser Goals Time Frame: January 01, 2021 Eating (QC): 6 Oral Hygiene (QC): 6 Toileting Hygiene (QC): 3 Shower/Bathe Self (QC): 3 Upper Body Dressing (QC): 4 Lower Body Dressing (QC): 2 Additional Goals: 1-Demonstrate ADL Tasks, 2-Verbalize Understanding, 3- ImproveStrength/[place] 1=Demonstrate adherence to instructed precautions during ADL tasks. 2=Patient will verbalize/demonstrate understanding of assistive devices/modifications for ADL. 3=Patient will improve strength/tolerance for activity to enable patient to perform ADL's. OT Education/Plan Problem List/Assessment Assessment: Decreased Activ Tolerance, Decreased UE Strength, Impaired Self- Care Skills Discharge Recommendations Plan/Recommendations: Continue POC Treatment Plan/Plan of Care Patient would benefit from OT for education, treatment and training to promote independence in ADL's, mobility, safety and/or upper extremity function for ADL's. Plan of Care: ADL Retraining, Functional Mobility, UE Funct Exercise/Act Treatment Duration: January 01, 2021 Frequency: 5 times per week Estimated Hrs Per Day: .25 hour per day Rehab Potential: Guarded Time/GCodes Start Time: 11:18 Stop Time: 11:33 Total Time Billed (hr/min): 15 Billed Treatment Time 1 visit-FA 1 (15 min) MARYANN APARICIO December 24, 2020 11:42
[2020-12-24 11:52] VITALS: BP 109/56
--- NOTE | 2020-12-24 11:58 | Progress Note - Hospitalist ---
Subjective HPI/CC On Admission Date Seen by Provider: December 24, 2020 Time Seen by Provider: 11:00 CC: PNA HPI: This is a 60yoWM clinic patient of [facility] who presented to the [facility] ER with fever and cough and found to have PNA. Patient had a recent fall and sustained a pelvic ramus fracture and has not been active at home since that time. He declined admit this past weekend for pain control. O2 maintained currently. Lung cancer managed by [facility]. COVID test was negative. Subjective/Events-last exam Pt having no major issues Cystoscopy scheduled at 1:00 Bladder scan didnt show much Really cant do inpatient rehab, he really cant do the structured three hour PT, he is just too weak and the lung cancer has really caused a lot of loss of reserve I did update inpatient rehab Review of Systems General: Fatigue, Malaise Pulmonary: Dyspnea Neurological: Weakness Focused Exam Lactate Level Objective Exam Vital Signs Vital Signs Date Time Temp Pulse Resp B/P (MAP) Pulse Ox O2 Delivery O2 Flow Rate FiO2 12/24/20 19:47 37.1 89 18 105/57 (73) 98 Nasal Cannula 5.00 12/21/20 19:32 21 Capillary Refill : Less Than 3 Seconds General Appearance: No Apparent Distress, WD/WN, Chronically ill Respiratory: Decreased Breath Sounds, Wheezing Cardiovascular: Regular Rate, Rhythm Neurologic/Psychiatric: Alert, Oriented x3 Results/Procedures Lab Laboratory Tests 12/24/20 05:28 Patient resulted labs reviewed. Assessment/Plan Assessment and Plan Assess & Plan/Chief Complaint Assessment: PNA Hypoxia Lung cancer Pelvic ramus fracture Severe pain Plan: Pain control IV abx O2 Nebs 12/22/20: IV abx Monitor closely 12/23/20: IV abx Nebs O2 PT OT IRF? 12/24/20: Cysto Can't tolerate IRF Needs NHP Diagnosis/Problems Diagnosis/Problems (1) Left lower lobe pneumonia Status: Acute Qualifiers: Pneumonia type: due to unspecified organism Qualified Codes: J18.9 - Pneumonia, unspecified organism (2) Dyspnea Status: Acute Qualifiers: Dyspnea type: shortness of breath Qualified Codes: R06.02 - Shortness of breath (3) Closed fracture of left inferior pubic ramus Status: Acute Qualifiers: Encounter type: subsequent encounter Fracture healing: with routine healing Qualified Codes: S32.592D - Other specified fracture of left pubis, subsequent encounter for fracture with routine healing (4) Fall at home Status: Acute RHIANNON DHALIWAL DO December 24, 2020 11:58
[2020-12-24] MEDS: NS IV 1000 ML 1,000 ML IV SCH (13:33)
[2020-12-24 16:48] VITALS: BP 97/50
[2020-12-24 19:47] VITALS: BP 105/57
[2020-12-24] MEDS: ATORVASTATIN 10 MG TABLET PO SCH (20:39)
[2020-12-24] MEDS: OLANZapine 5 MG (ZyPREXA) TAB PO SCH (20:39)
[2020-12-24] MEDS: ENOXAPARIN 40 MG/0.4 ML (LOVENOX) SYR SC SCH (20:42)
[2020-12-24 23:28] VITALS: BP 126/60
[2020-12-25] VITALS (8 sets, daily range): BP systolic 112–139; BP diastolic 59–84
[2020-12-25] MEDS: NS IV 1000 ML 1,000 ML IV SCH ×3 (00:08→21:39)
[2020-12-25] MEDS: CEFEPIME 1,000 MG/SWFI 10 ML IV PUSH IV SCH ×8 (00:08→17:35)
[2020-12-25] MEDS: ALPRAZolam 0.5 MG (XANAX) TAB PO PRN ×2 (00:24→16:05)
[2020-12-25] MEDS: RT-ALBUTEROL/IPRATROPIUM 3 ML (DUONEB) VIAL INH SCH ×6 (03:08→22:38)
--- NOTE | 2020-12-25 05:43 | Progress Note - Hospitalist ---
Subjective HPI/CC On Admission Date Seen by Provider: December 25, 2020 Time Seen by Provider: 11:00 CC: PNA HPI: This is a 60yoWM clinic patient of [facility] who presented to the [facility] ER with fever and cough and found to have PNA. Patient had a recent fall and sustained a pelvic ramus fracture and has not been active at home since that time. He declined admit this past weekend for pain control. O2 maintained currently. Lung cancer managed by [facility]. COVID test was negative. Subjective/Events-last exam Pt continues to be very debilitated Needs longterm and hospice in my opinion Urinary retention requiring in and out cath IV fluids maintained Pt very slow recovery if any is expected Patient required transfer to ICU due to declined status and he remains DNI Review of Systems General: Fatigue Pulmonary: Dyspnea Focused Exam Lactate Level 12/26/20 00:00: Lactic Acid Level 0.62 Objective Exam Vital Signs Vital Signs Date Time Temp Pulse Resp B/P (MAP) Pulse Ox O2 Delivery O2 Flow Rate FiO2 12/26/20 01:43 96 Room Air 12/26/20 01:00 84 12/26/20 01:00 12 132/77 (95) 2.00 12/25/20 21:34 37.0 12/21/20 19:32 21 Capillary Refill : Less Than 3 Seconds General Appearance: No Apparent Distress, WD/WN, Chronically ill, Thin Respiratory: No Accessory Muscle Use, No Respiratory Distress, Decreased Breath Sounds Cardiovascular: Regular Rate, Rhythm Neurologic/Psychiatric: Alert Results/Procedures Lab Laboratory Tests 12/25/20 05:45 12/25/20 23:30 12/25/20 23:55 12/26/20 03:27 Patient resulted labs reviewed. Assessment/Plan Assessment and Plan Assess & Plan/Chief Complaint Assessment: PNA Hypoxia Lung cancer Pelvic ramus fracture Severe pain Plan: Pain control IV abx O2 Nebs 12/22/20: IV abx Monitor closely 12/23/20: IV abx Nebs O2 PT OT IRF? 12/24/20: Cysto Can't tolerate IRF Needs NHP 12/25/20: Declined status Needs Hospice rather than move to ICU but will try to talk to patient more Diagnosis/Problems Diagnosis/Problems (1) Left lower lobe pneumonia Status: Acute Qualifiers: Pneumonia type: due to unspecified organism Qualified Codes: J18.9 - Pneumonia, unspecified organism (2) Dyspnea Status: Acute Qualifiers: Dyspnea type: shortness of breath Qualified Codes: R06.02 - Shortness of breath (3) Closed fracture of left inferior pubic ramus Status: Acute Qualifiers: Encounter type: subsequent encounter Fracture healing: with routine healing Qualified Codes: S32.592D - Other specified fracture of left pubis, subsequent encounter for fracture with routine healing (4) Fall at home Status: Acute RHIANNON DHALIWAL DO December 25, 2020 05:43
[2020-12-25] MEDS: BETHANECHOL 25 MG (URECHOLINE) TAB PO SCH ×4 (05:49→21:39)
[2020-12-25] MEDS: KCL 20 MEQ TAB (K-DUR) PO SCH (05:49)
[2020-12-25] MEDS: MULTIVIT W/MINERALS TAB (THERAGRAN M) PO SCH (05:49)
[2020-12-25 06:37] LABS: BASOPHILS % (AUTO) 0 % (0-10); EOSINOPHILS # (AUTO) 0.2 10^3/uL (0.0-0.3); EOSINOPHILS % (AUTO) 3 % (0-10); HEMATOCRIT 29 % (40-54); HEMOGLOBIN 9.5 g/dL (13.3-17.7); LYMPHOCYTES # (AUTO) 1.1 10^3/uL (1.0-4.0); LYMPHOCYTES % (AUTO) 11 % (12-44); MEAN CORPUSCULAR HEMOGLOBIN 30 pg (25-34); MEAN CORPUSCULAR HGB CONC 33 g/dL (32-36); MEAN CORPUSCULAR VOLUME 91 fL (80-99); MEAN PLATELET VOLUME 10.3 fL (9.0-12.2); MONOCYTES # (AUTO) 1.1 10^3/uL (0.0-1.0); MONOCYTES % (AUTO) 11 % (0-12); NEUTROPHILS # (AUTO) 7.2 10^3/uL (1.8-7.8); NEUTROPHILS % (AUTO) 75 % (42-75); PLATELET COUNT 212 10^3/uL (130-400); WHITE BLOOD COUNT 9.7 10^3/uL (4.3-11.0)
[2020-12-25 06:48] LABS: ALBUMIN 2.8 GM/DL (3.2-4.5); CHLORIDE 112 MMOL/L (98-107); POTASSIUM 3.7 MMOL/L (3.6-5.0); SODIUM 142 MMOL/L (135-145)
[2020-12-25 06:49] LABS: CALCIUM 8.4 MG/DL (8.5-10.1)
[2020-12-25 06:50] LABS: GLUCOSE 84 MG/DL (70-105); TOTAL PROTEIN 5.4 GM/DL (6.4-8.2)
[2020-12-25 06:51] LABS: CARBON DIOXIDE 22 MMOL/L (21-32)
[2020-12-25 06:52] LABS: BILIRUBIN,TOTAL 0.3 MG/DL (0.1-1.0)
[2020-12-25 06:54] LABS: ALKALINE PHOSPHATASE 98 U/L (40-136); CREATININE SERUM 1.17 MG/DL (0.60-1.30); GFR ESTIMATED > 60
[2020-12-25 06:55] LABS: BUN/CREATININE RATIO 14
[2020-12-25 06:57] LABS: ALANINE AMINOTRANSFERASE 23 U/L (0-55)
[2020-12-25] MEDS: GABAPENTIN 300 MG (NEURONTIN) CAP PO SCH ×3 (09:40→21:41)
[2020-12-25] MEDS: VITAMIN D3 25 MCG (1,000 UNITS) TABLET PO SCH (09:40)
[2020-12-25] MEDS: meTOprolol TARTRATE 25 MG (LOPRESSOR) TABLET PO SCH ×2 (09:40→21:41)
[2020-12-25] MEDS: SUCRALFATE 1 GM (CARAFATE) TAB PO SCH ×4 (09:40→21:41)
[2020-12-25] MEDS: SENNA W/DOCUSATE (SENOKOT S) TABLET PO SCH ×2 (09:40→21:32)
[2020-12-25] MEDS: oxyCODONE ER 20 MG (OxyCONTIN CR) TAB PO SCH ×2 (09:41→21:41)
[2020-12-25] MEDS: TAMSULOSIN 0.4 MG (FLOMAX) CAP PO SCH ×2 (09:41→21:41)
[2020-12-25] MEDS: PANTOPRAZOLE 40 MG (PROTONIX) TAB PO SCH (09:41)
[2020-12-25] MEDS: FLUoxetine HCL 20 MG (PROzac) CAP PO SCH (09:44)
--- NOTE | 2020-12-25 09:59 | Progress Note - Urology ---
Progress Note-Urology Progress Notes/Assess & Plan Progress/Assessment & Plan STATUS QUO. ?VASQUES Final Diagnosis RETENTION CHRISTIAN BENDER MD December 25, 2020 09:59
--- NOTE | 2020-12-25 11:41 | Physical Therapy Daily Note ---
PT Daily Note-Current Subjective Patient up in recliner with OT present. Mental Status Patient Orientation: Person, Time, Situation Attachments: Oxygen, IV Transfers SCALE: Activities may be completed with or without assistive devices. 7-Upeznxiyvv-ijuhubm completes the activity by him/herself with no assistance from a helper. 5-Set-up or Clean-up Assistance-helper sets up or cleans up; patient completes activity. [place] assists only prior to or following the activity. 4-Supervision or Touching Assistance-helper provides verbal cues and/or touching/steadying and/or contact guard assistance as patient completes activity. Assistance may be provided throughout the activity or intermittently. 3-Partial/Moderate Assistance-helper does LESS THAN HALF the effort. [place] lifts, holds or supports trunk or limbs, but provides less than half the effort. 2-Substantial/Maximal Assistance-helper does MORE THAN HALF the effort. [place] lifts or holds trunk or limbs and provides more than half the effort. 0-Gqrktfoij-njijzp does ALL the effort. Patient does none of the effort to complete the activity. Or, the assistance of 2 or more helpers is required for the patient to complete the activity. If activity was not attempted, code reason: 7-Patient Refused. 9-Not Applicable-not attempted and the patient did not perform the activity before the current illness, exacerbation or injury. 10-Not Attempted due to Environmental Limitations-(lack of equipment, weather restraints, etc.). 88-Not Attempted due to Medical Conditions or Safety Concerns. Sit to Stand (QC): 2 (x 3 sets to FWW with patient having increase dystonia on this date with severe retropulsion) Assessment PT assist with transfers as OT addressed bathing patient. Patient voices increase frustration with mobility on this date. Unable to ambulate safely due to dystonia. PT to increase activity as tolerated by patient. PT Hvac Sheet Metal Installer Helper Goals Hvac Sheet Metal Installer Helper Goals PT Hvac Sheet Metal Installer Helper Goals Time Frame: January 01, 2021 Roll Left & Right (QC): 6 Sit to Lying (QC): 6 Lying-Sitting on Side/Bed(QC): 6 Sit to Stand (QC): 6 Chair/Tbq-ub-Hwxjd Xfer(QC): 6 Toilet Transfer (QC): 6 Does the Patient Walk: Yes Walk 10 feet (QC): 6 Walk 50ft with 2 Turns (QC): 6 Walk 150 ft (QC): 6 PT Plan Treatment/Plan Treatment Plan: Continue Plan of Care Treatment Plan: Bed Mobility, Education, Functional Activity [place], Functional Strength, Gait, Safety, Therapeutic Exercise, Transfers Treatment Duration: January 01, 2021 Frequency: 6 times per week Estimated Hrs Per Day: .25 hour per day Patient and/or Family Agrees t: Yes Time/GCodes Time In: 1110 Time Out: 1123 Total Billed Treatment Time: 13 Total Billed Treatment 1 visit FA 13 min MICHAEL HENDERSON PT December 25, 2020 11:41
--- NOTE | 2020-12-25 12:39 | Occupational Ther Daily Note ---
OT Current Status-Daily Note Subjective Pt alert, agrees to tx. Pt desires to urinate prior to treatment, given 5 minutes with no results. Pt agrees to tx with Ot/ PT co-treat due to decreased endurance/ strength. Mental Status/Objective Patient Orientation: Person, Place, Situation Attachments: Oxygen ADL-Treatment Therapy Code Descriptions/Definitions Functional [place] Measure: 0=Not Assessed/NA 4=Minimal Assistance 1=Total Assistance 5=Supervision or Setup 2=Maximal Assistance 6=Modified [place] 3=Moderate Assistance 7=Complete IndependenceSCALE: Activities may be completed with or without assistive devices. 1-Kdzkdzboer-olsdred completes the activity by him/herself with no assistance from a helper. 5-Set-up or Clean-up Assistance-helper sets up or cleans up; patient completes activity. [place] assists only prior to or following the activity. 4-Supervision or Touching Assistance-helper provides verbal cues and/or touch ing/steadying and/or contact guard assistance as patient completes activity. Assistance may be provided throughout the activity or intermittently. 3-Partial/Moderate Assistance-helper does LESS THAN HALF the effort. [place] lifts, holds or supports trunk or limbs, but provides less than half the effort. 2-Substantial/Maximal Assistance-helper does MORE THAN HALF the effort. [place] lifts or holds trunk or limbs and provides more than half the effort. 0-Uxdwzflci-cepkcf does ALL the effort. Patient does none of the effort to complete the activity. Or, the assistance of 2 or more helpers is required for the patient to complete the activity. If activity was not attempted, code reason: 7-Patient Refused. 9-Not Applicable-not attempted and the patient did not perform the activity before the current illness, exacerbation or injury. 10-Not Attempted due to Environmental Limitations-(lack of equipment, weather restraints, etc.). 88-Not Attempted due to Medical Conditions or Safety Concerns. Eating (QC): 6 Bathing Location: L Arm, R Arm, L Upper Leg, R Upper Leg, Chest, Abdomen, Perineal Area Shower/Bathe Self (QC): 3 (mod A with assist with bottom/ back/ hair, likely LEs) Upper Body Dressing (QC): 3 (min A) Lower Body Dressing (QC): 7 Toileting Hygiene (QC): 2 (max A bottom care in stance due to decreased endurance/ decreased standing balance.) Toilet Transfer (QC): 7 Other Treatment Pt completes stance with PT assist (see PT for each stance). Pt unable to doff hands from walker. Pt requires increased asisst for balance. Pt sits in chair. Completes 10 reps of bicep curls with red theraband bilaterally. Pt agrees to bed bath. Pt completes UE/ leslye area while OT addresses remaining areas. Pt dresses as outlined. Sit to stand 1 additional time with OT/ PT assist for bottom care. Pt left in recliner with all needs met, call light in reach. Education OT Patient Education: Correct positioning, Exercise program, Home exercise program, Modified ADL techniques, Progress toward Goal/Update tx plan, Purpose of tx/functional activities, Safety issues, Transfer techniques Teaching Recipient: Patient Teaching Methods: Demonstration, Discussion Response to Teaching: Verbalize Understanding, Return Demonstration OT Yard Switch Operator Goals Senior Living Goals Time Frame: January 01, 2021 Eating (QC): 6 Oral Hygiene (QC): 6 Toileting Hygiene (QC): 3 Shower/Bathe Self (QC): 3 Upper Body Dressing (QC): 4 Lower Body Dressing (QC): 2 Additional Goals: 1-Demonstrate ADL Tasks, 2-Verbalize Understanding, 3- ImproveStrength/[place] 1=Demonstrate adherence to instructed precautions during ADL tasks. 2=Patient will verbalize/demonstrate understanding of assistive devices/modifications for ADL. 3=Patient will improve strength/tolerance for activity to enable patient to perform ADL's. OT Education/Plan Problem List/Assessment Assessment: Decreased Activ Tolerance, Decreased UE Strength, Dependent Transfers, Impaired Bed Mobility, Impaired Funct Balance, Impaired I ADL's, Impaired Self-Care Skills Discharge Recommendations Plan/Recommendations: Continue POC Therapy Discharge Recommendati: Assisted Living, Post Acute OT Treatment Plan/Plan of Care Treatment,Training & Education: Yes Patient would benefit from OT for education, treatment and training to promote independence in ADL's, mobility, safety and/or upper extremity function for ADL's. Plan of Care: ADL Retraining, Functional Mobility, UE Funct Exercise/Act Treatment Duration: January 01, 2021 Frequency: 5 times per week Estimated Hrs Per Day: .25 hour per day Rehab Potential: Guarded Time/GCodes Start Time: 11:00 Stop Time: 11:27 Total Time Billed (hr/min): 27 Billed Treatment Time 1, ADL 2 (27) MIRTA SURESH OTR December 25, 2020 12:39
[2020-12-25] MEDS: ATORVASTATIN 10 MG TABLET PO SCH (21:41)
[2020-12-25] MEDS: ENOXAPARIN 40 MG/0.4 ML (LOVENOX) SYR SC SCH (21:41)
[2020-12-25] MEDS: OLANZapine 5 MG (ZyPREXA) TAB PO SCH (21:41)
--- NOTE | 2020-12-25 22:03 | Diagnostic Imaging Report ---
PROCEDURE: CT head without contrast. TECHNIQUE: Multiple contiguous axial images were obtained through the brain without the use of intravenous contrast. Auto Exposure Controls were utilized during the CT exam to meet ALARA standards for radiation dose reduction. INDICATION: Altered mental status. COMPARISON: MRI brain of 05/26/2020 FINDINGS: No hyperdense hemorrhage or space-occupying mass. No hydrocephalus or midline shift. Symmetric prominence of the ventricles and cortical sulci is compatible with age-appropriate atrophy. No isolated lobar atrophy. No territorial loss of blandon-white matter differentiation to indicate acute/subacute infarct. Periventricular hypoattenuation is compatible chronic microvascular disease and unchanged since prior exam. The mastoid air cells are clear. Paranasal sinuses are normal. No focal osseous abnormality of the calvarium. IMPRESSION: No acute intracranial process. Dictated by: Dictated on workstation # [id number]
[2020-12-26] VITALS (18 sets, daily range): BP systolic 103–138; BP diastolic 55–77
[2020-12-26 00:34] LABS: BASOPHILS # (AUTO) 0.1 10^3/uL (0.0-0.1); BASOPHILS % (AUTO) 0 % (0-10); EOSINOPHILS # (AUTO) 0.2 10^3/uL (0.0-0.3); EOSINOPHILS % (AUTO) 1 % (0-10); HEMATOCRIT 31 % (40-54); HEMOGLOBIN 10.1 g/dL (13.3-17.7); LYMPHOCYTES # (AUTO) 0.9 10^3/uL (1.0-4.0); LYMPHOCYTES % (AUTO) 6 % (12-44); MEAN CORPUSCULAR HEMOGLOBIN 30 pg (25-34); MEAN CORPUSCULAR HGB CONC 33 g/dL (32-36); MEAN CORPUSCULAR VOLUME 91 fL (80-99); MEAN PLATELET VOLUME 10.5 fL (9.0-12.2); MONOCYTES # (AUTO) 1.2 10^3/uL (0.0-1.0); MONOCYTES % (AUTO) 8 % (0-12); NEUTROPHILS % (AUTO) 83 % (42-75); PLATELET COUNT 227 10^3/uL (130-400); WHITE BLOOD COUNT 14.4 10^3/uL (4.3-11.0)
[2020-12-26 01:00] LABS: ALANINE AMINOTRANSFERASE 42 U/L (0-55); ALKALINE PHOSPHATASE 132 U/L (40-136); BILIRUBIN,TOTAL 0.4 MG/DL (0.1-1.0); BUN/CREATININE RATIO 14; CALCIUM 8.8 MG/DL (8.5-10.1); CARBON DIOXIDE 21 MMOL/L (21-32); CHLORIDE 110 MMOL/L (98-107); CREATININE SERUM 1.16 MG/DL (0.60-1.30); GFR ESTIMATED > 60; GLUCOSE 83 MG/DL (70-105); MAGNESIUM 1.6 MG/DL (1.6-2.4); PHOSPHORUS 2.3 MG/DL (2.3-4.7); POTASSIUM 4.7 MMOL/L (3.6-5.0); SODIUM 140 MMOL/L (135-145)
[2020-12-26] MEDS: CEFEPIME 1,000 MG/SWFI 10 ML IV PUSH IV SCH ×2 (01:14)
[2020-12-26] MEDS: RT-ALBUTEROL/IPRATROPIUM 3 ML (DUONEB) VIAL INH SCH ×6 (01:43→21:55)
[2020-12-26 01:45] LABS: ABG BASE EXCESS -3.1 MMOL/L (-2.5-2.5); ABG OXYGEN SATURATION 95 % (94-100); ABG PCO2 44 MMHG (35-45); ABG PO2 78 MMHG (79-93); ABG TCO2 23.5 MMOL/L (21.0-31.0)
[2020-12-26 02:03] LABS: LYMPHOCYTES % (MANUAL) 11 %; MONOCYTES % (MANUAL) 4 %; NEUTROPHILS % (MANUAL) 85 %
[2020-12-26 02:04] LABS: RBC MORPH NORMAL
[2020-12-26 02:08] LABS: ABG PH 7.32 (7.37-7.43)
[2020-12-26 02:09] LABS: ALLENS TEST POS; INSPIRED O2 2L; PATIENT TEMP 36.6; VENTILATOR NO
[2020-12-26 03:56] LABS: BASOPHILS # (AUTO) 0.1 10^3/uL (0.0-0.1); BASOPHILS % (AUTO) 1 % (0-10); EOSINOPHILS # (AUTO) 0.2 10^3/uL (0.0-0.3); EOSINOPHILS % (AUTO) 2 % (0-10); HEMATOCRIT 30 % (40-54); HEMOGLOBIN 9.9 g/dL (13.3-17.7); LYMPHOCYTES # (AUTO) 1.2 10^3/uL (1.0-4.0); LYMPHOCYTES % (AUTO) 9 % (12-44); MEAN CORPUSCULAR HEMOGLOBIN 30 pg (25-34); MEAN CORPUSCULAR HGB CONC 33 g/dL (32-36); MEAN CORPUSCULAR VOLUME 91 fL (80-99); MEAN PLATELET VOLUME 10.1 fL (9.0-12.2); MONOCYTES # (AUTO) 1.1 10^3/uL (0.0-1.0); MONOCYTES % (AUTO) 9 % (0-12); NEUTROPHILS # (AUTO) 10.1 10^3/uL (1.8-7.8); NEUTROPHILS % (AUTO) 79 % (42-75); PLATELET COUNT 216 10^3/uL (130-400); WHITE BLOOD COUNT 12.8 10^3/uL (4.3-11.0)
[2020-12-26 04:12] LABS: CHLORIDE 112 MMOL/L (98-107); POTASSIUM 4.7 MMOL/L (3.6-5.0); SODIUM 143 MMOL/L (135-145)
[2020-12-26 04:14] LABS: CALCIUM 8.9 MG/DL (8.5-10.1); GLUCOSE 80 MG/DL (70-105)
[2020-12-26 04:16] LABS: CARBON DIOXIDE 22 MMOL/L (21-32)
[2020-12-26 04:18] LABS: CREATININE SERUM 1.13 MG/DL (0.60-1.30); GFR ESTIMATED > 60; PHOSPHORUS 2.9 MG/DL (2.3-4.7)
[2020-12-26 04:19] LABS: BUN/CREATININE RATIO 13
[2020-12-26 04:21] LABS: MAGNESIUM 1.6 MG/DL (1.6-2.4)
--- NOTE | 2020-12-26 05:41 | Pulmonary Consultation ---
History of Present Illness History of Present Illness Date Seen by Provider: December 26, 2020 Time Seen by Provider: 05:35 Date of Admission Allergies and Home Medications Allergies Coded Allergies: nitroglycerin (Verified Allergy, Unknown, 04/14/16) morphine (Verified Adverse Reaction, Mild, nausea, 01/15/19) Home Medications Albuterol Sulfate 2.5 Mg/3 Ml Vial.neb, 3 ML NEB Q8H PRN for SHORTNESS OF BREATH, (Reported) Alprazolam 0.5 Mg Tablet, 0.5 MG PO QID PRN for ANXIETY, (Reported) Atorvastatin Calcium 10 Mg Tablet, 10 MG PO HS, (Reported) Cholecalciferol (Vitamin D3) 25 Mcg Capsule, 25 MCG PO DAILY, (Reported) Fluoxetine HCl 40 Mg Capsule, 40 MG PO DAILY, (Reported) Gabapentin 300 Mg Capsule, 300 MG PO TID, (Reported) Levetiracetam 500 Mg Tablet, 500 MG PO BID, (Reported) Metoprolol Tartrate 25 Mg Tablet, 25 MG PO BID, (Reported) Multivitamin 1 Each Tablet, 1 EACH PO DAILY, (Reported) Olanzapine 5 Mg Tablet, 5 MG PO HS, (Reported) Oxycodone HCl 20 Mg Tab.er.12h, 20 MG PO BID, (Reported) Pantoprazole Sodium 40 Mg Tablet.dr, 40 MG PO DAILY, (Reported) Sennosides/Docusate Sodium 1 Each Tablet, 1 EACH PO BID, (Reported) Sucralfate 1 Gm Tablet, 1 GM PO QID, (Reported) Past Gdpppet-Fwazlp-Tfxwxd Hx Past Med/Social Hx: Reviewed Nursing Past Med/Soc Hx Patient Social History Alcohol Use: Denies Use Smoking Status: Current Everyday Smoker Type Used: Cigarettes 2nd Hand Smoke Exposure: No Recent Infectious Disease Expo: No Recent Hopitalizations: No Have you traveled recently?: No Alcohol Use?: No Immunizations Up To Date Date of Pneumonia Vaccine: May 11, 2016 Date of Influenza Vaccine: May 02, 2019 Seasonal Allergies Seasonal Allergies: No Past Medical History Surgeries: Yes (colostomy, port (left), toe amputation) Bowel Surgery, Cardiac Respiratory: No Cardiac: Yes Coronary Artery Disease, Heart Attack Neurological: Yes Seizure Disorder Genitourinary: No Gastrointestinal: Yes (colostomy) Gastroesophageal Reflux, Gastrointestinal Bleed, Chronic Constipation Musculoskeletal: Yes Arthritis Endocrine: No HEENT: No Cancer: Yes (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) Lung What Type of Treatment Did You: Chemotherapy, Radiation, Other Psychosocial: No Anxiety Integumentary: Yes (nicotine discoloration of the hands) Blood Disorders: No Family Medical History No Pertinent Family Hx Review of Systems Time Seen by Provider: 05:35 Sepsis Event Evaluation Height, Weight, BMI Height: 6'0" Weight: 147lbs. oz. 66.557010zv; 21.46 BMI Method:Stated Exam Exam Vital Signs Date Time Temp Pulse Resp B/P (MAP) Pulse Ox O2 Delivery O2 Flow Rate FiO2 12/26/20 01:43 96 Room Air 12/26/20 01:00 84 12/26/20 01:00 89 12 132/77 (95) 96 Nasal Cannula 2.00 12/26/20 00:00 87 12 138/74 (95) 95 Nasal Cannula 2.00 12/25/20 23:00 93 17 135/84 (101) 95 Nasal Cannula 2.00 12/25/20 22:38 87 Room Air 12/25/20 22:30 Nasal Cannula 2.00 12/25/20 22:17 101 12/25/20 22:00 95 14 138/73 (94) 92 Nasal Cannula 2.00 12/25/20 21:34 37.0 99 20 121/61 (81) 97 Nasal Cannula 2.00 12/25/20 21:15 Nasal Cannula 2.00 12/25/20 20:49 36.6 114 20 115/76 (89) 97 Nasal Cannula 2.00 12/25/20 18:40 96 Nasal Cannula 2.00 12/25/20 16:02 36.9 87 20 139/65 (89) 98 Nasal Cannula 2.00 12/25/20 13:50 95 Nasal Cannula 2.00 12/25/20 12:00 36.7 85 16 126/59 (81) 94 Nasal Cannula 2.00 12/25/20 10:47 95 Room Air 12/25/20 08:00 Room Air 12/25/20 07:54 36.9 93 112/67 (82) 94 Nasal Cannula 3.00 12/25/20 07:07 95 Nasal Cannula 4.00 I & O 12/26/20 07:00 Intake Total 775 ml Output Total 550 ml Balance 225 ml Height & Weight Height: 6'0" Weight: 147lbs. oz. 66.720163ga; 21.46 BMI Method:Stated General Appearance: No Apparent Distress, WD/WN, Chronically ill HEENT: PERRL/EOMI, Normal ENT Inspection, Pharynx Normal, Moist Mucous Membranes Neck: Full Range of Motion, Normal Inspection, Non Tender Respiratory: Decreased Breath Sounds, Wheezing Cardiovascular: Regular Rate, Rhythm Capillary Refill: Less Than 3 Seconds Extremity: Normal Capillary Refill, Normal Inspection, Normal Range of Motion, Non Tender, No Calf Tenderness, No Pedal Edema Neurologic/Psychiatric: Alert, Oriented x3 Skin: Normal Color, Warm/Dry Lymphatic: No Adenopathy Results Lab Laboratory Tests 12/25/20 05:45 12/25/20 23:30 12/25/20 23:55 12/26/20 03:27 Assessment/Plan Assessment/Plan PNA -cont cefepime -Oxygen Lung cancer -Pain control Transferred to ICU secondary to confusion -CT head negative -A&O x 3 currently and no focal def -Check ammonia level and UA Pelvic ramus fracture GUICHO KAMINSKI DO December 26, 2020 05:40
[2020-12-26] MEDS ORDERED: POTASSIUM CL 10MEQ/50ML IVPB 50 ML IV SCH (06:00)
[2020-12-26] MEDS ORDERED: KCL 20 MEQ TAB (K-DUR) PO SCH (06:00)
[2020-12-26] MEDS ORDERED: MAGNESIUM 1 GM/100 ML IVPB 100 ML IV SCH (06:00)
[2020-12-26] MEDS: CEFEPIME INJECTION 1,000 MG in WATER (STERILE) FOR INJECTION 10 ML IV SCH ×4 (06:37→23:45)
[2020-12-26] MEDS: NS IV 1000 ML 1,000 ML IV SCH ×3 (06:37→22:11)
[2020-12-26] MEDS: KCL 20 MEQ TAB (K-DUR) PO SCH (06:38)
[2020-12-26] MEDS: BETHANECHOL 25 MG (URECHOLINE) TAB PO SCH ×4 (06:38→20:27)
--- NOTE | 2020-12-26 06:45 | Progress Note - Hospitalist ---
Subjective HPI/CC On Admission Date Seen by Provider: December 26, 2020 Time Seen by Provider: 11:00 CC: PNA HPI: This is a 60yoWM clinic patient of [facility] who presented to the [facility] ER with fever and cough and found to have PNA. Patient had a recent fall and sustained a pelvic ramus fracture and has not been active at home since that time. He declined admit this past weekend for pain control. O2 maintained currently. Lung cancer managed by [facility]. COVID test was negative. Subjective/Events-last exam Patient is declined Family at bedside aware of this Hospice offered and family wants to pursue DNR Will likely DC all meds tomorrow and place on comfort care Review of Systems General: Fatigue, Malaise Focused Exam Lactate Level 12/26/20 00:00: Lactic Acid Level 0.62 Objective Exam Vital Signs Vital Signs Date Time Temp Pulse Resp B/P (MAP) Pulse Ox O2 Delivery O2 Flow Rate FiO2 12/27/20 04:55 36.0 86 20 111/55 (73) 99 Nasal Cannula 2.00 12/21/20 19:32 21 Capillary Refill : Less Than 3 Seconds General Appearance: Chronically ill, Other (asleep) Respiratory: Decreased Breath Sounds Cardiovascular: Regular Rate, Rhythm Results/Procedures Lab Patient resulted labs reviewed. Assessment/Plan Assessment and Plan Assess & Plan/Chief Complaint Assessment: PNA Hypoxia Lung cancer Pelvic ramus fracture Severe pain Plan: Pain control IV abx O2 Nebs 12/22/20: IV abx Monitor closely 12/23/20: IV abx Nebs O2 PT OT IRF? 12/24/20: Cysto Can't tolerate IRF Needs NHP 12/25/20: Declined status Needs Hospice rather than move to ICU but will try to talk to patient more 12/26/20: Move to 4th floor Likely comfort care tomorrow Diagnosis/Problems Diagnosis/Problems (1) Left lower lobe pneumonia Status: Acute Qualifiers: Pneumonia type: due to unspecified organism Qualified Codes: J18.9 - Pneumonia, unspecified organism (2) Dyspnea Status: Acute Qualifiers: Dyspnea type: shortness of breath Qualified Codes: R06.02 - Shortness of breath (3) Closed fracture of left inferior pubic ramus Status: Acute Qualifiers: Encounter type: subsequent encounter Fracture healing: with routine healing Qualified Codes: S32.592D - Other specified fracture of left pubis, subsequent encounter for fracture with routine healing (4) Fall at home Status: Acute RHIANNON DHALIWAL DO December 26, 2020 06:45
--- NOTE | 2020-12-26 07:08 | Physical Therapy Progress Note ---
Therapy Progress Note Patient transferred to ICU due to declined in status. PT will require new orders to resume therapy. MICHAEL HENDERSON PT December 26, 2020 07:08
--- NOTE | 2020-12-26 07:51 | Diagnostic Imaging Report ---
HISTORY: Altered mental status, history of metastatic lung cancer COMPARISON: 04/03/2020. CT from 12/21/2020 TECHNIQUE: Frontal view of the chest FINDINGS: There are diffuse interstitial and airspace opacities throughout the lungs which have increased since the prior study. The perihilar opacities appear increased. Right upper lobe mass is again seen. There is increased airspace consolidation in the right midlung. There is no pleural effusion or pneumothorax. Cardiac silhouette is normal in size. The left Port-A-Cath appears stable. IMPRESSION: 1. Increased interstitial and airspace opacities in the lungs, may be due to edema or infection. 2. Right upper lobe mass is again seen. Dictated by: Dictated on workstation # [id number]
[2020-12-26 07:55] LABS: BILIRUBIN,URINE NEGATIVE (NEGATIVE); CLARITY,URINE CLEAR; COLOR,URINE YELLOW; GLUCOSE, URINE (UA) NEGATIVE (NEGATIVE); KETONES,URINE NEGATIVE (NEGATIVE); LEUKOCYTE ESTERASE ,URINE NEGATIVE (NEGATIVE); NITRITE,URINE NEGATIVE (NEGATIVE); PH,URINE 5.5 (5-9); PROTEIN,URINE NEGATIVE (NEGATIVE)
[2020-12-26] MEDS: SENNA W/DOCUSATE (SENOKOT S) TABLET PO SCH ×2 (08:08→20:26)
[2020-12-26] MEDS: MULTIVIT W/MINERALS TAB (THERAGRAN M) PO SCH (08:08)
[2020-12-26] MEDS: SUCRALFATE 1 GM (CARAFATE) TAB PO SCH ×4 (08:08→20:27)
[2020-12-26] MEDS: VITAMIN D3 25 MCG (1,000 UNITS) TABLET PO SCH (08:08)
[2020-12-26] MEDS: FLUoxetine HCL 20 MG (PROzac) CAP PO SCH (08:08)
[2020-12-26] MEDS: PANTOPRAZOLE 40 MG (PROTONIX) TAB PO SCH (08:08)
[2020-12-26] MEDS: TAMSULOSIN 0.4 MG (FLOMAX) CAP PO SCH ×2 (08:08→20:26)
[2020-12-26] MEDS: meTOprolol TARTRATE 25 MG (LOPRESSOR) TABLET PO SCH ×2 (08:09→20:27)
[2020-12-26] MEDS: oxyCODONE ER 20 MG (OxyCONTIN CR) TAB PO SCH ×2 (08:09→20:26)
[2020-12-26] MEDS: GABAPENTIN 300 MG (NEURONTIN) CAP PO SCH ×3 (08:09→20:27)
[2020-12-26 08:14] LABS: BACTERIA,URINE NEGATIVE /HPF; RBC,URINE 0-2 /HPF
--- NOTE | 2020-12-26 08:43 | Diagnostic Imaging Report ---
EXAMINATION: Chest radiograph, portable AP view. DATE: 12/26/2020 4:30 AM INDICATION: 60-year-old male, history of lung cancer. Pneumonia. Shortness of breath. COMPARISON: December 25, 2020. CT chest December 21, 2020. FINDINGS: There is airspace consolidation and nodularity overlying the right lung apex. This correlates with the mass seen on prior CT imaging. There are additional bilateral predominantly interstitial opacities. There is nonspecific airspace consolidation in the left lower lobe which is unchanged. No identified pneumothorax or large pleural effusion. IMPRESSION: 1. Redemonstrated mass in the right lung apex. 2. Nonspecific airspace consolidation in the left lower lobe which may relate to aspiration, pneumonia, and/or atelectasis. 3. Bilateral interstitial opacities most likely reflecting chronic lung changes. Dictated by: Dictated on workstation # [id number]
[2020-12-26] MEDS ORDERED: WATER (STERILE) FOR INJECTION 10 ML ONE ×2 (17:26→23:26)
[2020-12-26] MEDS ORDERED: CEFEPIME 1 GM/10 ML (MAXIPIME) VIAL ONE ×2 (17:26→23:26)
[2020-12-26] MEDS: ENOXAPARIN 40 MG/0.4 ML (LOVENOX) SYR SC SCH (20:26)
[2020-12-26] MEDS: OLANZapine 5 MG (ZyPREXA) TAB PO SCH (20:26)
[2020-12-26] MEDS: ATORVASTATIN 10 MG TABLET PO SCH (20:27)
[2020-12-27] MEDS: RT-ALBUTEROL/IPRATROPIUM 3 ML (DUONEB) VIAL INH SCH ×6 (02:00→23:05)
[2020-12-27] MEDS ORDERED: CEFEPIME 1 GM/10 ML (MAXIPIME) VIAL ONE ×4 (04:54→23:33)
[2020-12-27] MEDS ORDERED: WATER (STERILE) FOR INJECTION 10 ML ONE ×4 (04:54→23:33)
[2020-12-27 04:55] VITALS: BP 111/55
[2020-12-27] MEDS: CEFEPIME INJECTION 1,000 MG in WATER (STERILE) FOR INJECTION 10 ML IV SCH ×4 (05:07→23:54)
[2020-12-27] MEDS: MULTIVIT W/MINERALS TAB (THERAGRAN M) PO SCH (05:08)
[2020-12-27] MEDS: BETHANECHOL 25 MG (URECHOLINE) TAB PO SCH ×4 (05:08→21:18)
[2020-12-27] MEDS: KCL 20 MEQ TAB (K-DUR) PO SCH (05:08)
--- NOTE | 2020-12-27 06:36 | Progress Note - Hospitalist ---
Subjective HPI/CC On Admission Date Seen by Provider: December 27, 2020 Time Seen by Provider: 10:00 CC: PNA HPI: This is a 60yoWM clinic patient of [facility] who presented to the [facility] ER with fever and cough and found to have PNA. Patient had a recent fall and sustained a pelvic ramus fracture and has not been active at home since that time. He declined admit this past weekend for pain control. O2 maintained currently. Lung cancer managed by [facility]. COVID test was negative. Subjective/Events-last exam Patient alert today Appears very declined O2 maintained Eating minimally Monitored closely DNR Review of Systems General: Fatigue Pulmonary: Cough Focused Exam Lactate Level 12/26/20 00:00: Lactic Acid Level 0.62 Objective Exam Vital Signs Vital Signs Date Time Temp Pulse Resp B/P (MAP) Pulse Ox O2 Delivery O2 Flow Rate FiO2 12/27/20 16:01 35.9 91 20 112/90 (97) 95 Nasal Cannula 2.00 12/21/20 19:32 21 Capillary Refill : Less Than 3 Seconds General Appearance: No Apparent Distress, WD/WN, Chronically ill Respiratory: Decreased Breath Sounds, Wheezing Cardiovascular: Regular Rate, Rhythm Neurologic/Psychiatric: Alert, Disoriented Results/Procedures Lab Patient resulted labs reviewed. Assessment/Plan Assessment and Plan Assess & Plan/Chief Complaint Assessment: PNA Hypoxia Lung cancer Pelvic ramus fracture Severe pain Plan: Pain control IV abx O2 Nebs 12/22/20: IV abx Monitor closely 12/23/20: IV abx Nebs O2 PT OT IRF? 12/24/20: Cysto Can't tolerate IRF Needs NHP 12/25/20: Declined status Needs Hospice rather than move to ICU but will try to talk to patient more 12/26/20: Move to 4th floor Likely comfort care tomorrow 12/27/20: Hospice at [place] Complete IV abx tomorrow Diagnosis/Problems Diagnosis/Problems (1) Left lower lobe pneumonia Status: Acute Qualifiers: Pneumonia type: due to unspecified organism Qualified Codes: J18.9 - Pneumonia, unspecified organism (2) Dyspnea Status: Acute Qualifiers: Dyspnea type: shortness of breath Qualified Codes: R06.02 - Shortness of breath (3) Closed fracture of left inferior pubic ramus Status: Acute Qualifiers: Encounter type: subsequent encounter Fracture healing: with routine healing Qualified Codes: S32.592D - Other specified fracture of left pubis, subsequent encounter for fracture with routine healing (4) Fall at home Status: Acute RHIANNON DHALIWAL DO December 27, 2020 06:36
[2020-12-27 08:00] VITALS: BP 108/62
[2020-12-27] MEDS: SENNA W/DOCUSATE (SENOKOT S) TABLET PO SCH ×2 (09:47→21:18)
[2020-12-27] MEDS: SUCRALFATE 1 GM (CARAFATE) TAB PO SCH ×4 (09:47→21:18)
[2020-12-27] MEDS: PANTOPRAZOLE 40 MG (PROTONIX) TAB PO SCH (09:47)
[2020-12-27] MEDS: oxyCODONE ER 20 MG (OxyCONTIN CR) TAB PO SCH ×2 (09:47→21:18)
[2020-12-27] MEDS: FLUoxetine HCL 20 MG (PROzac) CAP PO SCH (09:47)
[2020-12-27] MEDS: TAMSULOSIN 0.4 MG (FLOMAX) CAP PO SCH ×2 (09:47→21:18)
[2020-12-27] MEDS: VITAMIN D3 25 MCG (1,000 UNITS) TABLET PO SCH (09:47)
[2020-12-27] MEDS: GABAPENTIN 300 MG (NEURONTIN) CAP PO SCH ×3 (09:48→21:18)
[2020-12-27] MEDS: meTOprolol TARTRATE 25 MG (LOPRESSOR) TABLET PO SCH ×2 (09:48→21:18)
[2020-12-27 12:00] VITALS: BP 143/65
[2020-12-27 16:01] VITALS: BP 112/90
[2020-12-27 20:13] VITALS: BP 108/60
[2020-12-27] MEDS: ENOXAPARIN 40 MG/0.4 ML (LOVENOX) SYR SC SCH (21:16)
[2020-12-27] MEDS: OLANZapine 5 MG (ZyPREXA) TAB PO SCH (21:18)
[2020-12-27] MEDS: ATORVASTATIN 10 MG TABLET PO SCH (21:18)
[2020-12-27] MEDS: NS IV 1000 ML 1,000 ML IV SCH (21:55)
[2020-12-27 23:56] VITALS: BP 144/89
[2020-12-28] MEDS: RT-ALBUTEROL/IPRATROPIUM 3 ML (DUONEB) VIAL INH SCH ×6 (02:31→22:18)
[2020-12-28 05:47] LABS: BASOPHILS # (AUTO) 0.1 10^3/uL (0.0-0.1); BASOPHILS % (AUTO) 1 % (0-10); EOSINOPHILS # (AUTO) 0.3 10^3/uL (0.0-0.3); EOSINOPHILS % (AUTO) 3 % (0-10); HEMATOCRIT 34 % (40-54); HEMOGLOBIN 10.8 g/dL (13.3-17.7); LYMPHOCYTES # (AUTO) 1.1 10^3/uL (1.0-4.0); LYMPHOCYTES % (AUTO) 11 % (12-44); MEAN CORPUSCULAR HEMOGLOBIN 30 pg (25-34); MEAN CORPUSCULAR HGB CONC 32 g/dL (32-36); MEAN CORPUSCULAR VOLUME 92 fL (80-99); MEAN PLATELET VOLUME 9.7 fL (9.0-12.2); MONOCYTES # (AUTO) 1.1 10^3/uL (0.0-1.0); MONOCYTES % (AUTO) 11 % (0-12); NEUTROPHILS # (AUTO) 7.5 10^3/uL (1.8-7.8); NEUTROPHILS % (AUTO) 74 % (42-75); PLATELET COUNT 300 10^3/uL (130-400); WHITE BLOOD COUNT 10.1 10^3/uL (4.3-11.0)
[2020-12-28] MEDS ORDERED: CEFEPIME 1 GM/10 ML (MAXIPIME) VIAL ONE ×4 (06:01→23:22)
[2020-12-28] MEDS ORDERED: WATER (STERILE) FOR INJECTION 10 ML ONE ×4 (06:01→23:22)
[2020-12-28 06:10] LABS: ALBUMIN 3.1 GM/DL (3.2-4.5); BILIRUBIN,TOTAL 0.3 MG/DL (0.1-1.0); CALCIUM 8.9 MG/DL (8.5-10.1); CREATININE SERUM 1.28 MG/DL (0.60-1.30); TOTAL PROTEIN 6.5 GM/DL (6.4-8.2)
[2020-12-28] MEDS: MULTIVIT W/MINERALS TAB (THERAGRAN M) PO SCH (06:17)
[2020-12-28] MEDS: KCL 20 MEQ TAB (K-DUR) PO SCH (06:17)
[2020-12-28] MEDS: BETHANECHOL 25 MG (URECHOLINE) TAB PO SCH ×4 (06:18→20:37)
[2020-12-28] MEDS: CEFEPIME INJECTION 1,000 MG in WATER (STERILE) FOR INJECTION 10 ML IV SCH ×4 (06:22→23:31)
[2020-12-28] MEDS: ENOXAPARIN 40 MG/0.4 ML (LOVENOX) SYR SC SCH ×2 (06:53→20:38)
--- NOTE | 2020-12-28 08:06 | Physical Therapy Progress Note ---
Therapy Progress Note Patient, per report, will dismiss on hospice. PT will require new orders if/when physician deems it appropriate. MICHAEL HENDERSON PT December 28, 2020 08:06
[2020-12-28 08:15] VITALS: BP 123/63
[2020-12-28] MEDS: GABAPENTIN 300 MG (NEURONTIN) CAP PO SCH ×3 (08:41→20:36)
[2020-12-28] MEDS: TAMSULOSIN 0.4 MG (FLOMAX) CAP PO SCH ×2 (08:41→20:36)
[2020-12-28] MEDS: SUCRALFATE 1 GM (CARAFATE) TAB PO SCH ×4 (08:41→20:36)
[2020-12-28] MEDS: PANTOPRAZOLE 40 MG (PROTONIX) TAB PO SCH (08:41)
[2020-12-28] MEDS: meTOprolol TARTRATE 25 MG (LOPRESSOR) TABLET PO SCH ×2 (08:41→20:37)
[2020-12-28] MEDS: FLUoxetine HCL 20 MG (PROzac) CAP PO SCH (08:42)
[2020-12-28] MEDS: oxyCODONE ER 20 MG (OxyCONTIN CR) TAB PO SCH ×2 (08:42→20:37)
[2020-12-28] MEDS: SENNA W/DOCUSATE (SENOKOT S) TABLET PO SCH ×2 (08:42→20:37)
[2020-12-28] MEDS: VITAMIN D3 25 MCG (1,000 UNITS) TABLET PO SCH (08:42)
[2020-12-28] MEDS: NS IV 1000 ML 1,000 ML IV SCH (08:42)
--- NOTE | 2020-12-28 11:18 | Occ Therapy Progress Note ---
Therapy Progress Note Per report, pt will dismiss on hospice. If physician deems appropriate, OT will require new orders. d/c from OT ARLETTE PRADHAN OT December 28, 2020 11:18
[2020-12-28] MEDS ORDERED: GADOBUTROL 7.5 MMOL/7.5 ML (GADAVIST) VIAL IV ONE (15:15)
[2020-12-28 16:00] VITALS: BP 102/56
--- NOTE | 2020-12-28 16:14 | Progress Note ---
Subjective Subjective/Events-last exam Patient able to answer some questions, but sometimes seems to get stuck and repeat same phrase or partial phrase over and over, and sometimes has very long pauses before answering. Focused Exam Lactate Level 12/26/20 00:00: Lactic Acid Level 0.62 Objective Exam Last Set of Vital Signs Vital Signs Date Time Temp Pulse Resp B/P (MAP) Pulse Ox O2 Delivery O2 Flow Rate FiO2 12/28/20 11:00 98 Nasal Cannula 2.00 12/28/20 08:15 36.3 87 18 123/63 (83) Capillary Refill : Less Than 3 Seconds I&O Intake and Output 12/28/20 00:00 Intake Total 480 ml Output Total 2200 ml Balance -1720 ml Intake Oral 480 ml Output Urine Total 2200 ml # Bowel Movements 1 General: Alert, Other (oriented to self and month and year) Lungs: Clear to Auscultation Heart: Regular Rate Abdomen: Normal Bowel Sounds Extremities: No Edema Neuro: Other (CNII-XII appear generally intact, he has trouble following instructions, and is unclear if he is not protruding tongue due to strength or confusion. Does not lift left arm at shoulder, but raises forearm, does not lift right leg off the bed but moves foot, throughout exam has intermittent twitch type movements of neck and shoulders) Results/Procedures Lab Laboratory Tests 12/28/20 05:30: White Blood Count 10.1, Red Blood Count 3.66L, Hemoglobin 10.8L, Hematocrit 34L, Mean Corpuscular Volume 92, Mean Corpuscular Hemoglobin 30, Mean Corpuscular Hemoglobin Concent 32, Red Cell Distribution Width 13.3, Platelet Count 300, Mean Platelet Volume 9.7, Immature Granulocyte % (Auto) 1, Neutrophils (%) (Auto) 74, Lymphocytes (%) (Auto) 11L, Monocytes (%) (Auto) 11, Eosinophils (%) (Auto) 3, Basophils (%) (Auto) 1, Neutrophils # (Auto) 7.5, Lymphocytes # (Auto) 1.1, Monocytes # (Auto) 1.1H, Eosinophils # (Auto) 0.3, Basophils # (Auto) 0.1, Immature Granulocyte # (Auto) 0.1, Sodium Level 142, Potassium Level 4.0, Chloride Level 108H, Carbon Dioxide Level 22, Anion Gap 12, Blood Urea Nitrogen 13, Creatinine 1.28, Estimat Glomerular Filtration Rate 58, BUN/Creatinine Ratio 10, Glucose Level 63L, Calcium Level 8.9, Corrected Calcium 9.6, Total Bilirubin 0.3, Aspartate Amino Transf (AST/SGOT) 48H, Alanine Aminotransferase (ALT/SGPT) 36, Alkaline Phosphatase 140H, Total Protein 6.5, Albumin 3.1L Microbiology 12/25/20 MRSA Screen - Final, Complete MRSA not isolated 12/21/20 Blood Culture - Final, Complete No growth Assessment/Plan Assessment/Plan (1) Neurologic abnormality Status: Acute Assessment & Plan: Unclear underlying cause of his halting speech and debility. CT of head on admit was okay, will check MRI. (2) Closed fracture of left inferior pubic ramus Status: Acute Assessment & Plan: Dx a couple of days prior to admission after a fall at home, he declined admission at that time. Qualifiers: Qualified Codes: S32.592D - Other specified fracture of left pubis, subsequent encounter for fracture with routine healing (3) Lung cancer Status: Chronic Qualifiers: Qualified Codes: C34.11 - Malignant neoplasm of upper lobe, right bronchus or lung (4) Debility Status: Acute Assessment & Plan: Marked decline in overall status, discussed with family and will plan to d/c to [facility] facility, possibly with hospice services. (5) Left lower lobe pneumonia Status: Acute Assessment & Plan: Treating with cefepime, is on 2 lpm supplemental oxygen, has oxygen at home but doesn't always use. Qualifiers: Qualified Codes: J18.9 - Pneumonia, unspecified organism (6) Schizophrenia Status: Chronic Assessment & Plan: Continue home olanzepine. 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 (12) DVT prophylaxis Status: Acute Assessment & Plan: Enoxaparin WOO VAZQUEZ MD December 28, 2020 16:14
--- NOTE | 2020-12-28 16:16 | Diagnostic Imaging Report ---
PROCEDURE: MR imaging of the brain with and without contrast. TECHNIQUE: Multiplanar, multisequence MR imaging of the brain was performed with and without contrast. INDICATION: Altered mental status. Weakness. History of lung cancer. COMPARISON: 12/25/2020. 05/26/2020. FINDINGS: No acute ischemia, mass, or hemorrhage. No abnormal enhancement is seen. Focal and confluent T2 hyperintense signal is seen in the periventricular and subcortical white matter. The ventricles and cortical sulci are prominent. The basilar cisterns are symmetric and unremarkable. The sellar and suprasellar regions have a normal appearance. The brainstem and posterior fossa are unremarkable. Mild mucosal thickening is seen in the bilateral ethmoid sinuses. Bilateral small mastoid effusions are present. The globes and orbits are symmetric and unremarkable. The scalp and calvarium have a normal appearance. IMPRESSION: 1. No acute ischemia, mass, or hemorrhage. No abnormal enhancement to suggest intracranial metastatic disease. 2. Generalized parenchymal volume loss with chronic microvascular disease. 3. Mild mucosal thickening in the ethmoid sinuses with bilateral mastoid effusions. Dictated by: Dictated on workstation # [id number]
[2020-12-28] MEDS: ATORVASTATIN 10 MG TABLET PO SCH (20:37)
[2020-12-28] MEDS: OLANZapine 5 MG (ZyPREXA) TAB PO SCH (20:37)
[2020-12-28 23:21] VITALS: BP 113/63
[2020-12-28] MEDS: ALPRAZolam 0.5 MG (XANAX) TAB PO PRN (23:24)
[2020-12-29] MEDS: RT-ALBUTEROL/IPRATROPIUM 3 ML (DUONEB) VIAL INH SCH ×4 (02:00→15:19)
[2020-12-29] MEDS: NS IV 1000 ML 1,000 ML IV SCH (03:10)
[2020-12-29] MEDS ORDERED: WATER (STERILE) FOR INJECTION 10 ML ONE ×2 (04:19→11:10)
[2020-12-29] MEDS ORDERED: CEFEPIME 1 GM/10 ML (MAXIPIME) VIAL ONE ×2 (04:19→11:10)
[2020-12-29 06:02] LABS: HEMATOCRIT 29 % (40-54); HEMOGLOBIN 9.4 g/dL (13.3-17.7); MEAN CORPUSCULAR HEMOGLOBIN 29 pg (25-34); MEAN CORPUSCULAR HGB CONC 32 g/dL (32-36); MEAN CORPUSCULAR VOLUME 90 fL (80-99); MEAN PLATELET VOLUME 9.8 fL (9.0-12.2); PLATELET COUNT 303 10^3/uL (130-400); WHITE BLOOD COUNT 9.4 10^3/uL (4.3-11.0)
[2020-12-29 06:15] LABS: ALBUMIN 2.8 GM/DL (3.2-4.5)
[2020-12-29 06:16] LABS: CHLORIDE 109 MMOL/L (98-107); POTASSIUM 3.8 MMOL/L (3.6-5.0); SODIUM 143 MMOL/L (135-145)
[2020-12-29 06:17] LABS: CALCIUM 8.6 MG/DL (8.5-10.1)
[2020-12-29 06:18] LABS: GLUCOSE 94 MG/DL (70-105); TOTAL PROTEIN 5.8 GM/DL (6.4-8.2)
[2020-12-29 06:19] LABS: CARBON DIOXIDE 24 MMOL/L (21-32)
[2020-12-29 06:20] LABS: BILIRUBIN,TOTAL 0.3 MG/DL (0.1-1.0)
[2020-12-29 06:21] LABS: ALKALINE PHOSPHATASE 134 U/L (40-136)
[2020-12-29 06:22] LABS: CREATININE SERUM 1.14 MG/DL (0.60-1.30); GFR ESTIMATED > 60
[2020-12-29 06:23] LABS: BUN/CREATININE RATIO 11
[2020-12-29 06:24] LABS: ALANINE AMINOTRANSFERASE 35 U/L (0-55)
[2020-12-29] MEDS: MULTIVIT W/MINERALS TAB (THERAGRAN M) PO SCH (06:41)
[2020-12-29] MEDS: BETHANECHOL 25 MG (URECHOLINE) TAB PO SCH ×3 (06:42→12:46)
[2020-12-29] MEDS: KCL 20 MEQ TAB (K-DUR) PO SCH (06:42)
[2020-12-29] MEDS: CEFEPIME INJECTION 1,000 MG in WATER (STERILE) FOR INJECTION 10 ML IV SCH ×2 (06:42→11:26)
[2020-12-29 08:00] VITALS: BP 115/58
[2020-12-29] MEDS: SUCRALFATE 1 GM (CARAFATE) TAB PO SCH ×2 (09:00→12:45)
--- NOTE | 2020-12-29 09:35 | Physical Therapy Progress Note ---
Therapy Progress Note New orders continue to be required. RN notified. Per Rn, patient having difficulty with waking up on this date. Family present. MICHAEL HENDERSON PT December 29, 2020 09:35
[2020-12-29] MEDS: TAMSULOSIN 0.4 MG (FLOMAX) CAP PO SCH ×2 (10:57→12:46)
[2020-12-29] MEDS: GABAPENTIN 300 MG (NEURONTIN) CAP PO SCH ×2 (10:58→12:45)
[2020-12-29] MEDS: meTOprolol TARTRATE 25 MG (LOPRESSOR) TABLET PO SCH ×2 (10:58→12:45)
[2020-12-29] MEDS: VITAMIN D3 25 MCG (1,000 UNITS) TABLET PO SCH ×2 (10:59→12:45)
[2020-12-29] MEDS: PANTOPRAZOLE 40 MG (PROTONIX) TAB PO SCH ×2 (10:59→12:45)
[2020-12-29] MEDS: oxyCODONE ER 20 MG (OxyCONTIN CR) TAB PO SCH ×2 (10:59→12:53)
[2020-12-29] MEDS: SENNA W/DOCUSATE (SENOKOT S) TABLET PO SCH ×2 (10:59→12:45)
[2020-12-29] MEDS: FLUoxetine HCL 20 MG (PROzac) CAP PO SCH ×2 (11:00→12:46)
--- NOTE | 2020-12-29 12:51 | Progress Note ---
Subjective Subjective/Events-last exam Afebrile, sister states he ate a full dinner last night, but this morning he is not waking up even to answer questions. He opens his eyes and mumbles once or twice when I ask him questions this morning. Objective Exam Last Set of Vital Signs Vital Signs Date Time Temp Pulse Resp B/P (MAP) Pulse Ox O2 Delivery O2 Flow Rate FiO2 12/29/20 11:13 92 Nasal Cannula 2.00 12/29/20 08:00 37.5 87 115/58 (77) 12/28/20 23:21 18 Capillary Refill : Less Than 3 Seconds I&O Intake and Output 12/29/20 00:00 Intake Total 1495 ml Output Total 1800 ml Balance -305 ml Intake Oral 370 ml IV Total 1125 ml Output Urine Total 1800 ml General: Other (deep sleep, barely arouses to name and touch) Lungs: Clear to Auscultation Heart: Regular Rate Extremities: No Edema Results/Procedures Lab Laboratory Tests 12/29/20 05:30: White Blood Count 9.4, Red Blood Count 3.26L, Hemoglobin 9.4L, Hematocrit 29L, Mean Corpuscular Volume 90, Mean Corpuscular Hemoglobin 29, Mean Corpuscular Hemoglobin Concent 32, Red Cell Distribution Width 13.4, Platelet Count 303, Mean Platelet Volume 9.8, Sodium Level 143, Potassium Level 3.8, Chloride Level 109H, Carbon Dioxide Level 24, Anion Gap 10, Blood Urea Nitrogen 12, Creatinine 1.14, Estimat Glomerular Filtration Rate > 60, BUN/Creatinine Ratio 11, Glucose Level 94, Calcium Level 8.6, Corrected Calcium 9.6, Total Bilirubin 0.3, Aspartate Amino Transf (AST/SGOT) 48H, Alanine Aminotransferase (ALT/SGPT) 35, Alkaline Phosphatase 134, Total Protein 5.8L, Albumin 2.8L Microbiology 12/25/20 MRSA Screen - Final, Complete MRSA not isolated 12/21/20 Blood Culture - Final, Complete No growth Assessment/Plan Assessment/Plan (1) Neurologic abnormality Status: Acute Assessment & Plan: Unclear underlying cause of his halting speech and debility. CT of head on admit was okay, will check MRI. MRI with no mass or stroke, today he is not waking up, but sister feels that is due to staying up late. Will monitor closely and discussed if he does not become more alert later in the day, will need to readdress goals. (2) Closed fracture of left inferior pubic ramus Status: Acute Assessment & Plan: Dx a couple of days prior to admission after a fall at home, he declined admission at that time. Qualifiers: Qualified Codes: S32.592D - Other specified fracture of left pubis, subsequent encounter for fracture with routine healing (3) Lung cancer Status: Chronic Qualifiers: Qualified Codes: C34.11 - Malignant neoplasm of upper lobe, right bronchus or lung (4) Debility Status: Acute Assessment & Plan: Marked decline in overall status, discussed with family and will plan to [facility]c to [facility], possibly with hospice services. 12/29 family planning for him to go to [facility], but want to wait on hospice services for now, discussed that if he is not able to be alert and take medications safely, we may need to consider hospice services at [facility] on d/c. Will monitor through today and discuss again tomorrow. (5) Left lower lobe pneumonia Status: Acute Assessment & Plan: Treating with cefepime, is on 2 lpm supplemental oxygen, has oxygen at home but doesn't always use. Qualifiers: Qualified Codes: J18.9 - Pneumonia, unspecified organism (6) Schizophrenia Status: Chronic Assessment & Plan: Continue home olanzepine. 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 (12) DVT prophylaxis Status: Acute Assessment & Plan: Enoxaparin WOO VAZQUEZ MD December 29, 2020 12:51
[2020-12-29] MEDS ORDERED: Bethanechol Chl PO (13:37)
[2020-12-29] MEDS ORDERED: TMSL.4C PO (13:37)
[2020-12-29] MEDS ORDERED: CEFD300C3 PO (13:37)
[2020-12-29 16:00] VITALS: BP 115/58
--- NOTE | 2020-12-29 16:30 | Discharge Summary ---
Discharge Summary Hospital Course Problems/Diagnosis: (1) Neurologic abnormality Status: Acute Assessment & Plan: Unclear underlying cause of his halting speech and debility. CT of head on admit was okay, will check MRI. MRI with no mass or stroke, today he is not waking up, but sister feels that is due to staying up late. Will monitor closely and discussed if he does not become more alert later in the day, will need to readdress goals. (2) Closed fracture of left inferior pubic ramus Status: Acute Assessment & Plan: Dx a couple of days prior to admission after a fall at home, he declined admission at that time. Qualifiers: Qualified Codes: S32.592D - Other specified fracture of left pubis, sub sequent encounter for fracture with routine healing (3) Lung cancer Status: Chronic Qualifiers: Qualified Codes: C34.11 - Malignant neoplasm of upper lobe, right bronchus or lung (4) Debility Status: Acute Assessment & Plan: Marked decline in overall status, discussed with family and will plan to d[facility]c to [facility] facility, possibly with hospice services. 12/29 family planning for him to go to [facility], but want to wait on hospice services for now, discussed that if he is not able to be alert and take me dications safely, we may need to consider hospice services at [facility] on d/c. Will monitor through today and discuss again tomorrow. (5) Left lower lobe pneumonia Status: Acute Assessment & Plan: Treating with cefepime, is on 2 lpm supplemental oxygen, has oxygen at home but doesn't always use. Qualifiers: Qualified Codes: J18.9 - Pneumonia, unspecified organism (6) Schizophrenia Status: Chronic Assessment & Plan: Continue home olanzepine. 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 (12) DVT prophylaxis Status: Acute Assessment & Plan: Enoxaparin Hospital Course Date of Admission: December 21, 2020 at 18:15 Admission Diagnosis : Family Physician/Provider: James Mullen MD Date of Discharge: 12/29/20 Discharge Diagnosis: [ ] Hospital Course: [ ] Labs and Pending Lab Test: Laboratory Tests 12/29/20 05:30: White Blood Count 9.4, Red Blood Count 3.26L, Hemoglobin 9.4L, Hematocrit 29L, Mean Corpuscular Volume 90, Mean Corpuscular Hemoglobin 29, Mean Corpuscular Hemoglobin Concent 32, Red Cell Distribution Width 13.4, Platelet Count 303, Mean Platelet Volume 9.8, Sodium Level 143, Potassium Level 3.8, Chloride Level 109H, Carbon Dioxide Level 24, Anion Gap 10, Blood Urea Nitrogen 12, Creatinine 1.14, Estimat Glomerular Filtration Rate > 60, BUN/Creatinine Ratio 11, Glucose Level 94, Calcium Level 8.6, Corrected Calcium 9.6, Total Bilirubin 0.3, Aspartate Amino Transf (AST/SGOT) 48H, Alanine Aminotransferase (ALT/SGPT) 35, Alkaline Phosphatase 134, Total Protein 5.8L, Albumin 2.8L Microbiology 12/25/20 MRSA Screen - Final, Complete MRSA not isolated 12/21/20 Blood Culture - Final, Complete No growth Home Meds Active Cefdinir 300 Mg Capsule 300 Mg PO BID Flomax (Tamsulosin HCl) 0.4 Mg Cap 0.4 Mg PO BID [Bethanechol Chl] 25 MG Tab 25 Mg PO ACHS Reported Vitamin D3 (Cholecalciferol (Vitamin D3)) 25 Mcg Capsule 25 Mcg PO DAILY Multivitamin 1 Each Tablet 1 Each PO DAILY Olanzapine 5 Mg Tablet 5 Mg PO HS Albuterol Sulfate 2.5 Mg/3 Ml Vial.neb 3 Ml NEB Q8H PRN Sucralfate 1 Gm Tablet 1 Gm PO QID Fluoxetine HCl 40 Mg Capsule 40 Mg PO DAILY Neurontin (Gabapentin) 300 Mg Capsule 300 Mg PO TID Levetiracetam 500 Mg Tablet 500 Mg PO BID Senna-S Tablet (Sennosides/Docusate Sodium) 1 Each Tablet 1 Each PO BID Oxycontin (Oxycodone HCl) 20 Mg Tab.er.12h 20 Mg PO BID Atorvastatin Calcium 10 Mg Tablet 10 Mg PO HS Metoprolol Tartrate 25 Mg Tablet 25 Mg PO BID Pantoprazole Sodium 40 Mg Tablet.dr 40 Mg PO DAILY Alprazolam 0.5 Mg Tablet 0.5 Mg PO QID PRN Discharge Physical Examination Allergies: Coded Allergies: nitroglycerin (Verified Allergy, Unknown, 04/14/16) morphine (Verified Adverse Reaction, Mild, nausea, 01/15/19) WOO VAZQUEZ MD December 29, 2020 16:30
== END 2020-12-29 16:00 | disposition hospice, inpatient (51) | DRG 194 ==
LOC: EDUNIT# 13:46 → ER FS 13:47 → 4TH 18:15 → ICU 12-25 22:06 → 4TH 12-26 14:33
PROVIDERS: ADMIT Internal Medicine; ATTEND Family Medicine
DX: J18.9 Pneumonia, unspecified organism (principal); C34.91 Malignant neoplasm of unspecified part of right bronchus or lung; C78.89 Secondary malignant neoplasm of other digestive organs; C79.31 Secondary malignant neoplasm of brain; J44.0 Chronic obstructive pulmonary disease with (acute) lower respiratory infection; S32.592D Other specified fracture of left pubis, subsequent encounter for fracture with routine healing; Z66 Do not resuscitate; Z20.822 Contact with and (suspected) exposure to COVID-19; N40.1 Benign prostatic hyperplasia with lower urinary tract symptoms; R33.8 Other retention of urine; R41.0 Disorientation, unspecified; R29.90 Unspecified symptoms and signs involving the nervous system; F17.210 Nicotine dependence, cigarettes, uncomplicated; I25.10 Atherosclerotic heart disease of native coronary artery without angina pectoris; G40.909 Epilepsy, unspecified, not intractable, without status epilepticus; K21.9 Gastro-esophageal reflux disease without esophagitis; F41.9 Anxiety disorder, unspecified; F20.9 Schizophrenia, unspecified; M19.91 Primary osteoarthritis, unspecified site; I25.2 Old myocardial infarction; Z93.3 Colostomy status; Z88.5 Allergy status to narcotic agent; Z88.8 Allergy status to other drugs, medicaments and biological substances; Z79.891 Long term (current) use of opiate analgesic; Z79.52 Long term (current) use of systemic steroids; Y92.009 Unspecified place in unspecified non-institutional (private) residence as the place of occurrence of the external cause; W19.XXXD Unspecified fall, subsequent encounter
CPT/HCPCS: 36415; 70450; 70553; 71045; 71275; 80048; 80053; 80170; 81000; 82140; 82805; 82947; 83605; 83735; 83880; 84100; 84145; 85007; 85025; 85027; 86141; 87040; 87081; 87636; 94640; 94760; 96374; 96375

== ENCOUNTER 2021-03-18 10:52 | Outpatient (RCR) | payer MEDICAID ==
[2021-03-15 11:35] LABS: BASOPHILS # (AUTO) 0.1 10^3/uL (0.0-0.1); BASOPHILS % (AUTO) 1 % (0-10); EOSINOPHILS # (AUTO) 0.2 10^3/uL (0.0-0.3); EOSINOPHILS % (AUTO) 2 % (0-10); HEMATOCRIT 40 % (40-54); HEMOGLOBIN 12.9 g/dL (13.3-17.7); LYMPHOCYTES # (AUTO) 2.1 10^3/uL (1.0-4.0); LYMPHOCYTES % (AUTO) 22 % (12-44); MEAN CORPUSCULAR HEMOGLOBIN 29 pg (25-34); MEAN CORPUSCULAR HGB CONC 33 g/dL (32-36); MEAN CORPUSCULAR VOLUME 89 fL (80-99); MEAN PLATELET VOLUME 9.7 fL (9.0-12.2); MONOCYTES # (AUTO) 0.7 10^3/uL (0.0-1.0); MONOCYTES % (AUTO) 8 % (0-12); NEUTROPHILS # (AUTO) 6.4 10^3/uL (1.8-7.8); NEUTROPHILS % (AUTO) 67 % (42-75); PLATELET COUNT 241 10^3/uL (130-400); WHITE BLOOD COUNT 9.5 10^3/uL (4.3-11.0)
[2021-03-15 11:57] LABS: ALBUMIN 3.5 GM/DL (3.2-4.5); BILIRUBIN,TOTAL 0.3 MG/DL (0.1-1.0); CALCIUM 8.3 MG/DL (8.5-10.1); CREATININE SERUM 0.95 MG/DL (0.60-1.30); POTASSIUM 3.6 MMOL/L (3.6-5.0); TOTAL PROTEIN 6.9 GM/DL (6.4-8.2)
[~2021-03-18 10:52] MED LIST changes: +ALBU2.5V4 NEB; +Bethanechol Chl PO; +CHOL100048 PO; +ERGO1250 PO; -ERGO50006 PO; +FLUO40CA PO; +LEVE500T6 PO; +MIRT-69 PO; -MIRT30TA6 PO; +MULT-1136 PO; -OLAN10TA19 PO; +OLAN10TA71 PO; +OLN5T PO; +TMSL.4C PO
== END 2021-06-13 | disposition home or self-care (01) ==
LOC: ONC 10:52
PROVIDERS: ATTEND Internal Medicine Hematology & Oncology
DX: Z45.2 Encounter for adjustment and management of vascular access device (principal); C34.11 Malignant neoplasm of upper lobe, right bronchus or lung; C79.31 Secondary malignant neoplasm of brain; I25.10 Atherosclerotic heart disease of native coronary artery without angina pectoris; D64.9 Anemia, unspecified; I73.9 Peripheral vascular disease, unspecified; J44.9 Chronic obstructive pulmonary disease, unspecified; F17.210 Nicotine dependence, cigarettes, uncomplicated; Z92.3 Personal history of irradiation
CPT/HCPCS: 36591; 80053; 85025; 99213

== ENCOUNTER 2021-09-16 12:51 | Outpatient (RCR) | payer MEDICAID ==
[~2021-09-16 12:51] MED LIST changes: -FLUO20CA46 PO; +FLUO20CA48 PO
[2021-09-16 13:19] LABS: BASOPHILS # (AUTO) 0.1 10^3/uL (0.0-0.1); BASOPHILS % (AUTO) 1 % (0-10); EOSINOPHILS # (AUTO) 0.3 10^3/uL (0.0-0.3); EOSINOPHILS % (AUTO) 3 % (0-10); HEMATOCRIT 41 % (40-54); HEMOGLOBIN 13.3 g/dL (13.3-17.7); LYMPHOCYTES # (AUTO) 1.8 10^3/uL (1.0-4.0); LYMPHOCYTES % (AUTO) 16 % (12-44); MEAN CORPUSCULAR HEMOGLOBIN 29 pg (25-34); MEAN CORPUSCULAR HGB CONC 33 g/dL (32-36); MEAN CORPUSCULAR VOLUME 90 fL (80-99); MEAN PLATELET VOLUME 9.5 fL (9.0-12.2); MONOCYTES # (AUTO) 0.8 10^3/uL (0.0-1.0); MONOCYTES % (AUTO) 8 % (0-12); NEUTROPHILS # (AUTO) 7.9 10^3/uL (1.8-7.8); NEUTROPHILS % (AUTO) 72 % (42-75); PLATELET COUNT 237 10^3/uL (130-400); WHITE BLOOD COUNT 10.9 10^3/uL (4.3-11.0)
[2021-09-16 13:41] LABS: ALBUMIN 3.7 GM/DL (3.2-4.5); BILIRUBIN,TOTAL 0.4 MG/DL (0.1-1.0); CALCIUM 8.5 MG/DL (8.5-10.1); CREATININE SERUM 1.16 MG/DL (0.60-1.30); POTASSIUM 3.4 MMOL/L (3.6-5.0); TOTAL PROTEIN 7.1 GM/DL (6.4-8.2)
== END 2021-10-04 | disposition home or self-care (01) ==
LOC: ONC 12:51
PROVIDERS: ATTEND Internal Medicine Hematology & Oncology
DX: Z45.2 Encounter for adjustment and management of vascular access device (principal); C34.11 Malignant neoplasm of upper lobe, right bronchus or lung; C79.31 Secondary malignant neoplasm of brain; I25.10 Atherosclerotic heart disease of native coronary artery without angina pectoris; E78.00 Pure hypercholesterolemia, unspecified; J44.9 Chronic obstructive pulmonary disease, unspecified; F17.210 Nicotine dependence, cigarettes, uncomplicated; Z95.820 Peripheral vascular angioplasty status with implants and grafts; Z95.1 Presence of aortocoronary bypass graft
CPT/HCPCS: 36591; 80053; 85025

== ENCOUNTER → 2021-09-29 | Outpatient (CLI) | payer MEDICAID ==
[~2021-09-29] MED LIST changes: +CATHETER FLUSH 10 ML SYR IV PRN; +HOLD METFORMIN - RECEIVED CONTRAST 20 ML VIAL IV SCH; +IOHEXOL 350 MG/ML 100 ML (OMNIPAQUE 350) VIAL IV ONE; +NS 100 ML (IVPB) BAG IV ONE
--- NOTE | 2021-09-29 14:37 | Diagnostic Imaging Report ---
INDICATION: Lung cancer. TECHNIQUE: Multiple contiguous axial images were obtained through the chest and abdomen after the administration of intravenous contrast. Auto Exposure Controls were utilized during the CT exam to meet ALARA standards for radiation dose reduction. COMPARISON: CT chest is compared with 12/21/2020. CT abdomen and pelvis is compared with 05/03/2020. FINDINGS: CT CHEST: There is a spiculated mass in the right upper lobe with central calcification. The lesion previously measured 2.8 x 2.6 cm and now measures the same at 2.8 x 2.6 cm. Some central calcifications are noted which may reflect post treatment change. There is some scarring around the right upper lobe lesion which is similar to the prior study. There are emphysematous changes with some chronic interstitial disease. There is no new pulmonary parenchymal mass or nodule. There is a small right pleural effusion which is new compared to the prior study. There are a few minimal nodes in the mediastinum which do not appear of pathologic size. There are calcified granulomata in the left hilum and a calcified granuloma in the left midlung. CT ABDOMEN/PELVIS: The liver and spleen show no acute abnormality. There are numerous calcified granulomata in the spleen. The adrenals and pancreas are normal. The kidneys bilaterally are unremarkable except for small benign-appearing cysts in each kidney. There is no retroperitoneal mass or adenopathy. There is no ascites. The patient appears to have had previous aortobifemoral bypass. There is an ostomy in the left lower quadrant. There is an old fracture of the right sacral joshua. IMPRESSION: CT CHEST: There is a stable spiculated mass in the right upper lobe with central calcification which may represent post treatment change. There is some adjacent scarring. There is no new pulmonary parenchymal lesion. There are emphysematous changes. There is a new small right pleural effusion. There are stable nonenlarged mediastinal nodes. The previous left basilar alveolar infiltrate has resolved. CT ABDOMEN/PELVIS: There is no evidence of metastatic disease. There are postop changes with previous aortic bypass. There are incidental cysts in both kidneys. Dictated by: Dictated on workstation # [id number]
== END ==
LOC: RAD 10:24
PROVIDERS: ATTEND Internal Medicine Hematology & Oncology
DX: C34.90 Malignant neoplasm of unspecified part of unspecified bronchus or lung (principal); N28.1 Cyst of kidney, acquired; Z98.890 Other specified postprocedural states; J43.9 Emphysema, unspecified; J90 Pleural effusion, not elsewhere classified
CPT/HCPCS: 71260; 74160

== ENCOUNTER 2021-10-07 12:37 | Outpatient (RCR) | payer MEDICAID ==
[~2021-10-07 12:37] MED LIST changes: -CATHETER FLUSH 10 ML SYR IV PRN; -HOLD METFORMIN - RECEIVED CONTRAST 20 ML VIAL IV SCH; -IOHEXOL 350 MG/ML 100 ML (OMNIPAQUE 350) VIAL IV ONE; -NS 100 ML (IVPB) BAG IV ONE
== END 2021-11-04 | disposition home or self-care (01) ==
LOC: ONC 12:37
PROVIDERS: ATTEND Internal Medicine Hematology & Oncology
DX: C34.11 Malignant neoplasm of upper lobe, right bronchus or lung (principal); C79.31 Secondary malignant neoplasm of brain; I25.10 Atherosclerotic heart disease of native coronary artery without angina pectoris; E78.00 Pure hypercholesterolemia, unspecified; J44.9 Chronic obstructive pulmonary disease, unspecified; F17.210 Nicotine dependence, cigarettes, uncomplicated; Z95.820 Peripheral vascular angioplasty status with implants and grafts; Z95.1 Presence of aortocoronary bypass graft
CPT/HCPCS: 99213

== ENCOUNTER 2022-01-06 12:44 | Outpatient (RCR) | payer MEDICAID ==
[2022-01-06 13:08] LABS: BASOPHILS # (AUTO) 0.1 10^3/uL (0.0-0.1); BASOPHILS % (AUTO) 1 % (0-10); EOSINOPHILS # (AUTO) 0.2 10^3/uL (0.0-0.3); EOSINOPHILS % (AUTO) 2 % (0-10); HEMATOCRIT 38 % (40-54); HEMOGLOBIN 12.7 g/dL (13.3-17.7); LYMPHOCYTES # (AUTO) 1.5 10^3/uL (1.0-4.0); LYMPHOCYTES % (AUTO) 18 % (12-44); MEAN CORPUSCULAR HEMOGLOBIN 29 pg (25-34); MEAN CORPUSCULAR HGB CONC 33 g/dL (32-36); MEAN CORPUSCULAR VOLUME 87 fL (80-99); MEAN PLATELET VOLUME 9.1 fL (9.0-12.2); MONOCYTES # (AUTO) 0.8 10^3/uL (0.0-1.0); MONOCYTES % (AUTO) 10 % (0-12); NEUTROPHILS # (AUTO) 5.7 10^3/uL (1.8-7.8); NEUTROPHILS % (AUTO) 69 % (42-75); PLATELET COUNT 201 10^3/uL (130-400); WHITE BLOOD COUNT 8.3 10^3/uL (4.3-11.0)
[2022-01-06 13:28] LABS: ALBUMIN 3.5 GM/DL (3.2-4.5); POTASSIUM 4.3 MMOL/L (3.6-5.0)
[2022-01-06 13:29] LABS: CALCIUM 8.3 MG/DL (8.5-10.1)
[2022-01-06 13:30] LABS: TOTAL PROTEIN 6.4 GM/DL (6.4-8.2)
[2022-01-06 13:32] LABS: BILIRUBIN,TOTAL 0.4 MG/DL (0.1-1.0)
[2022-01-06 13:34] LABS: CREATININE SERUM 0.93 MG/DL (0.60-1.30)
== END 2022-02-03 | disposition home or self-care (01) ==
LOC: ONC 12:44
PROVIDERS: ATTEND Internal Medicine Hematology & Oncology
DX: C34.11 Malignant neoplasm of upper lobe, right bronchus or lung (principal); C79.31 Secondary malignant neoplasm of brain; I25.10 Atherosclerotic heart disease of native coronary artery without angina pectoris; E78.00 Pure hypercholesterolemia, unspecified; J44.9 Chronic obstructive pulmonary disease, unspecified; F17.210 Nicotine dependence, cigarettes, uncomplicated; Z95.1 Presence of aortocoronary bypass graft
CPT/HCPCS: 80053; 84443; 85025; G0463; 36415; 99213

== ENCOUNTER 2022-02-26 16:39 | Emergency (ER) | payer MEDICAID ==
[~2022-02-26] VITALS: Ht 187.9 cm; Wt 68.2 kg
[2022-02-26] MEDS ORDERED: NS IV 500 ML 500 ML IV SCH (17:00)
[2022-02-26] MEDS ORDERED: HEParin 1000 UNIT/ML (10ML VIAL) FOR BOLUS IV SCH (17:00)
[2022-02-26 17:03] LABS: BASOPHILS % (AUTO) 0 % (0-10); EOSINOPHILS # (AUTO) 0.2 10^3/uL (0.0-0.3); EOSINOPHILS % (AUTO) 2 % (0-10); HEMATOCRIT 41 % (40-54); HEMOGLOBIN 13.8 g/dL (13.3-17.7); LYMPHOCYTES # (AUTO) 1.5 10^3/uL (1.0-4.0); LYMPHOCYTES % (AUTO) 21 % (12-44); MEAN CORPUSCULAR HEMOGLOBIN 29 pg (25-34); MEAN CORPUSCULAR HGB CONC 33 g/dL (32-36); MEAN CORPUSCULAR VOLUME 87 fL (80-99); MEAN PLATELET VOLUME 9.6 fL (9.0-12.2); MONOCYTES # (AUTO) 0.6 10^3/uL (0.0-1.0); MONOCYTES % (AUTO) 8 % (0-12); NEUTROPHILS # (AUTO) 4.7 10^3/uL (1.8-7.8); NEUTROPHILS % (AUTO) 68 % (42-75); PLATELET COUNT 238 10^3/uL (130-400)
--- NOTE | 2022-02-26 17:10 | ED Lower Extremity ---
General Chief Complaint: Lower Extremity Stated Complaint: RT LWR EXT NUMBNESS Nursing Triage Note: Patient brought in via EMS with c/o numbness to Rt. foot and ankle that started today. Pt. states he is unable to feel RLE. Rt. foot is cool to touch and pale. Unable to palpate Rt. pedal pulse. Unable to get pulse with doppler. Source: patient, EMS History of Present Illness Date Seen by Provider: Feb 26, 2022 Time Seen by Provider: 16:40 Initial Comments 61-year-old male patient with history of coronary artery disease, GERD, chronic constipation, arthritis, lung cancer, anxiety brought in by EMS because of right foot numbness. Patient complaining of pain and numbness of right foot for about 4 to 5 hours ago/patient is a poor historian. Patient denies history of the same problem, fever and chills, shortness of breath, chest pain, nausea and vomiting. Allergies and Home Medications Allergies Coded Allergies: nitroglycerin (Verified Allergy, Unknown, 04/14/16) morphine (Verified Adverse Reaction, Mild, nausea, 01/15/19) Patient Home Medication List Home Medication List Reviewed: Yes Albuterol Sulfate (Albuterol Sulfate) 2.5 Mg/3 Ml Vial.neb, 3 ML NEB Q8H PRN for SHORTNESS OF BREATH, (Reported) Entered as Reported by: LYNDSAY HARMAN on 12/22/20 1046 Alprazolam (Alprazolam) 0.5 Mg Tablet, 0.5 MG PO QID PRN for ANXIETY, (Reported) Entered as Reported by: DILEEP APPIAH on 09/01/19 1107 Atorvastatin Calcium (Atorvastatin Calcium) 10 Mg Tablet, 10 MG PO HS, (Reported) Entered as Reported by: LYNDSAY HARMAN on 03/20/20 1125 Cefdinir (Cefdinir) 300 Mg Capsule, 300 MG PO BID Prescribed by: WOO VAZQUEZ on 12/29/20 1337 Cholecalciferol (Vitamin D3) (Vitamin D3) 25 Mcg Capsule, 25 MCG PO DAILY, (Reported) Entered as Reported by: LYNDSAY HARMAN on 12/22/20 1046 Fluoxetine HCl (Fluoxetine HCl) 40 Mg Capsule, 40 MG PO DAILY, (Reported) Entered as Reported by: LYNDSAY HARMAN on 12/22/20 1046 Gabapentin (Neurontin) 300 Mg Capsule, 300 MG PO TID, (Reported) Entered as Reported by: LYNDSAY HARMAN on 12/22/20 104 Levetiracetam (Levetiracetam) 500 Mg Tablet, 500 MG PO BID, (Reported) Entered as Reported by: LYNDSAY HARMAN on 12/22/20 1046 Metoprolol Tartrate (Metoprolol Tartrate) 25 Mg Tablet, 25 MG PO BID, (Reported) Entered as Reported by: DILEEP APPIAH on 09/01/19 1107 Multivitamin (Multivitamin) 1 Each Tablet, 1 EACH PO DAILY, (Reported) Entered as Reported by: LYNDSAY HARMAN on 12/22/20 104 Olanzapine (Olanzapine) 5 Mg Tablet, 5 MG PO HS, (Reported) Entered as Reported by: LYNDSAY HARMAN on 12/22/20 104 Oxycodone HCl (Oxycontin) 20 Mg Tab.er.12h, 20 MG PO BID, (Reported) Entered as Reported by: LYNDSAY HARMAN on 03/20/20 1125 Pantoprazole Sodium (Pantoprazole Sodium) 40 Mg Tablet.dr, 40 MG PO DAILY, (Reported) Entered as Reported by: DILEEP APPIAH on 09/01/19 1107 Sennosides/Docusate Sodium (Senna-S Tablet) 1 Each Tablet, 1 EACH PO BID, (Reported) Entered as Reported by: LYNDSAY HARMAN on 03/20/20 112 Sucralfate (Sucralfate) 1 Gm Tablet, 1 GM PO QID, (Reported) Entered as Reported by: LYNDSAY HARMAN on 12/22/20 104 Tamsulosin HCl (Flomax) 0.4 Mg Cap, 0.4 MG PO BID Prescribed by: WOO VAZQUEZ on 12/29/20 133 [Bethanechol Chl] 25 MG TAB, 25 MG PO ACHS Prescribed by: WOO VAZQUEZ on 12/29/201336 Review of Systems Constitutional: no symptoms reported EENTM: no symptoms reported Respiratory: no symptoms reported Cardiovascular: no symptoms reported Gastrointestinal: no symptoms reported Genitourinary: no symptoms reported Musculoskeletal: see HPI Skin: see HPI Psychiatric/Neurological: No Symptoms Reported All Other Systems Reviewed Negative Unless Noted: Yes Past Udladmy-Zjgqng-Ixodhc Hx Patient Social History Tobacco Use?: Yes Smoking Status: Heavy Tobacco Smoker Use of E-Cig and/or Vaping dev: No Use of E-Cig and/or Vaping Arun: Never a User Substance use?: No Alcohol Use?: No Pt feels they are or have been: No Immunizations Up To Date Influenza Vaccine Up-to-Date: No; Not Current Seasonal Allergies Seasonal Allergies: No Past Medical History Surgeries: Yes (colostomy, port (left), toe amputation) Bowel Surgery, Cardiac Respiratory: No Cardiac: Yes Coronary Artery Disease, Heart Attack Neurological: Yes Seizure Disorder Genitourinary: No Gastrointestinal: Yes (colostomy) Gastroesophageal Reflux, Gastrointestinal Bleed, Chronic Constipation Musculoskeletal: Yes Arthritis Endocrine: No HEENT: No Cancer: Yes (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 oz. [id number]; 19.00 BMI Method:Stated General Appearance: mild distress HEENT: PERRL/EOMI, normal ENT inspection Neck: non-tender, full range of motion Cardiovascular: regular rate, rhythm, no edema Respiratory: chest non-tender, lungs clear Gastrointestinal: non tender, soft, other (Colostomy in place) Back: normal inspection Hips: bilateral hip non-tender, bilateral hip normal inspection Legs: right leg pain Knees: bilateral knee non-tender Feet: right foot pain, right foot other Neurologic/Tendon: sensory deficit Right leg with pale color and cold to touch with no detectable dorsalis pedis and posterior tibialis artery with hand and Doppler, missing second toe of right foot. Progress/Results/Core Measures Results/Orders Lab Results Laboratory Tests Test 02/26/22 16:48 02/26/22 17:00 Range/Units White Blood Count 7.0 4.3-11.0 10^3/uL Red Blood Count 4.76 4.30-5.52 10^6/uL Hemoglobin 13.8 13.3-17.7 g/dL Hematocrit 41 40-54 % Mean Corpuscular Volume 87 80-99 fL Mean Corpuscular Hemoglobin 29 25-34 pg Mean Corpuscular Hemoglobin Concent 33 32-36 g/dL Red Cell Distribution Width 14.3 10.0-14.5 % Platelet Count 238 130-400 10^3/uL Mean Platelet Volume 9.6 9.0-12.2 fL Immature Granulocyte % (Auto) 1 % Neutrophils (%) (Auto) 68 42-75 % Lymphocytes (%) (Auto) 21 12-44 % Monocytes (%) (Auto) 8 0-12 % Eosinophils (%) (Auto) 2 0-10 % Basophils (%) (Auto) 0 0-10 % Neutrophils # (Auto) 4.7 1.8-7.8 10^3/uL Lymphocytes # (Auto) 1.5 1.0-4.0 10^3/uL Monocytes # (Auto) 0.6 0.0-1.0 10^3/uL Eosinophils # (Auto) 0.2 0.0-0.3 10^3/uL Basophils # (Auto) 0.0 0.0-0.1 10^3/uL Immature Granulocyte # (Auto) 0.1 0.0-0.1 10^3/uL Prothrombin Time 14.6 12.2-14.7 SEC INR Comment 1.1 0.8-1.4 Activated Partial Thromboplast Time 31 24-35 SEC Sodium Level 140 135-145 MMOL/L Potassium Level 4.0 3.6-5.0 MMOL/L Chloride Level 110 H 98-107 MMOL/L Carbon Dioxide Level 18 L 21-32 MMOL/L Anion Gap 12 5-14 MMOL/L Blood Urea Nitrogen 26 H 7-18 MG/DL Creatinine 1.71 H 0.60-1.30 MG/DL Estimat Glomerular Filtration Rate 45 BUN/Creatinine Ratio 15 Glucose Level 140 H 70-105 MG/DL Calcium Level 9.3 8.5-10.1 MG/DL Corrected Calcium 9.3 8.5-10.1 MG/DL Total Bilirubin 0.4 0.1-1.0 MG/DL Aspartate Amino Transf (AST/SGOT) 11 5-34 U/L Alanine Aminotransferase (ALT/SGPT) 8 0-55 U/L Alkaline Phosphatase 155 H 40-136 U/L Total Protein 7.5 6.4-8.2 GM/DL Albumin 4.0 3.2-4.5 GM/DL SARS-CoV-2 RNA (RT-PCR) Detected H Not Detecte My Orders Orders - TURNER FRANCISCO MD Cbc With Automated Diff (02/26/22 16:53) Comprehensive Metabolic Panel (02/26/22 16:53) Protime With Inr (02/26/22 16:53) Partial Thromboplastin Time (02/26/22 16:53) Heparin (Bolus Per Protocol) (Heparin (B (02/26/22 17:00) Covid 19 Inhouse Test (02/26/22 16:53) Ns Iv 500 Ml (Sodium Chloride 0.9%) (02/26/22 17:00) Fentanyl Inj (Sublimaze Injection) (02/26/22 17:15) Ondansetron Injection (Zofran Injectio (02/26/22 17:15) Heparin Drip 31899 Unit/500ml (Heparin (02/26/22 17:15) Medications Given in ED Current Medications Medications Dose Ordered Sig/Cortney Route Start Time Stop Time Status Last Admin Dose Admin Fentanyl Citrate 50 mcg ONCE ONCE IVP 02/26/22 17:15 02/26/22 17:16 DC 02/26/22 17:10 50 MCG Heparin Sodium/ Dextrose 500 ml @ 0 mls/hr Q0M ONCE IV 02/26/22 17:15 02/26/22 17:16 DC 02/26/22 17:25 24.5 MLS/HR Ondansetron HCl 4 mg ONCE ONCE IVP 02/26/22 17:15 02/26/22 17:16 DC 02/26/22 17:07 4 MG Vital Signs/I&O 02/26/22 02/26/22 16:40 19:12 Pulse 76 87 Resp 18 B/P (MAP) 128/87 (101) 118/92 Pulse Ox 97 98 O2 Delivery Room Air Room Air Blood Pressure Mean: 101 Progress Progress Note : Progress Note Evaluation of patient in ER showed 61-year-old male patient with complaining of sudden onset of right lower extremity pain and numbness. Patient has sign of arterial occlusion with pale and cool extremity and paresthesia and pain. No Doppler study was available in ER. [facility] transfer line was contacted because of lack of vascular surgeon in [facility]. Dr Ramos vascular surgeon at [facility] consulted at 1706 and recommended to admit patient to [facility] with hospitalist. Amy Garland nurse practitioner accepted admission at [address] Oquendo on-call hospitalist at [facility]. Patient had positive COVID test without having signs of COVID. Labs showed unremarkable CBC and PT and INR. Patient had elevation of BUN/creatinine and alkaline phosphatase. Patient was treated with heparin bolus and drip and fentanyl and IV fluid in ER and felt better. Critical Care Note Critical Care Total Time (minutes) 55 minutes Departure Communication (Admissions) Time/Spoke to Admitting Phy: 17:17 Nia Garland nurse practitioner at [facility] accepted admission to Dr. Oquendo at 1717. Time/Spoke to Consulting Phy: 17:06 Dr. Ramos vascular surgeon on-call at [facility] consulted at 1706 and recommended to transfer patient to [facility]. Impression Primary Impression: Vascular occlusion Additional Impressions: Lab test positive for detection of COVID-19 virus Renal insufficiency Elevated alkaline phosphatase level Colostomy in place Disposition: 02 XFER SHT-TRM HOSP Condition: Improved Admissions Decision to Admit Reason: Admit from ER (General) Decision to Admit/Date: Feb 26, 2022 Time/Decision to Admit Time: 17:17 Transfer Transfer Reason: Exceeds level of care (Vascular surgeon) Time Spoke to Accepting Phy: 17:17 Transfer Time: 17:21 Transfer Facility: [facility] Method of Transfer: Air Departure-Patient Inst. Referrals: RAYN CAPPS MD (PCP/Family) Primary Care Physician TURNER FRANCISCO MD Feb 26, 2022 17:10
[2022-02-26 17:15] LABS: BILIRUBIN,TOTAL 0.4 MG/DL (0.1-1.0); CALCIUM 9.3 MG/DL (8.5-10.1); CREATININE SERUM 1.71 MG/DL (0.60-1.30); TOTAL PROTEIN 7.5 GM/DL (6.4-8.2)
[2022-02-26] MEDS ORDERED: ONDANSETRON 4 MG/2 ML (SDV) Z0FRAN IVP ONE (17:15)
[2022-02-26] MEDS ORDERED: HEParin DRIP 25000 UNIT/500ML 500 ML IV ONE (17:15)
[2022-02-26] MEDS ORDERED: fentaNYL INJ 100 MCG/2 ML AMP IVP ONE (17:15)
[2022-02-26 17:19] LABS: INR 1.1 (0.8-1.4); PROTHROMBIN TIME PATIENT 14.6 SEC (12.2-14.7)
[2022-02-26 19:12] VITALS: BP 118/92
== END 2022-02-26 19:12 | disposition short-term general hospital (02) ==
LOC: EDUNIT# 16:39 → ER FS 16:40
DX: U07.1 COVID-19 (principal); I99.8 Other disorder of circulatory system; N28.9 Disorder of kidney and ureter, unspecified; R74.8 Abnormal levels of other serum enzymes; Z93.3 Colostomy status; F17.290 Nicotine dependence, other tobacco product, uncomplicated; Z28.310 Unvaccinated for COVID-19
CPT/HCPCS: 36415; 80053; 85025; 85610; 85730; 87636

== ENCOUNTER 2022-07-07 12:57 | Outpatient (RCR) | payer MEDICAID ==
[2022-07-07 13:26] LABS: BASOPHILS # (AUTO) 0.1 10^3/uL (0.0-0.1); BASOPHILS % (AUTO) 1 % (0-10); EOSINOPHILS # (AUTO) 0.2 10^3/uL (0.0-0.3); EOSINOPHILS % (AUTO) 2 % (0-10); HEMATOCRIT 34 % (40-54); HEMOGLOBIN 11.3 g/dL (13.3-17.7); LYMPHOCYTES # (AUTO) 1.9 10^3/uL (1.0-4.0); LYMPHOCYTES % (AUTO) 21 % (12-44); MEAN CORPUSCULAR HEMOGLOBIN 29 pg (25-34); MEAN CORPUSCULAR HGB CONC 33 g/dL (32-36); MEAN CORPUSCULAR VOLUME 88 fL (80-99); MEAN PLATELET VOLUME 9.4 fL (9.0-12.2); MONOCYTES # (AUTO) 0.8 10^3/uL (0.0-1.0); MONOCYTES % (AUTO) 9 % (0-12); NEUTROPHILS % (AUTO) 67 % (42-75); PLATELET COUNT 263 10^3/uL (130-400)
[2022-07-07 13:56] LABS: ALBUMIN 3.8 GM/DL (3.2-4.5); BILIRUBIN,TOTAL 0.2 MG/DL (0.1-1.0); CALCIUM 8.6 MG/DL (8.5-10.1); CREATININE SERUM 1.28 MG/DL (0.60-1.30)
== END 2022-08-06 | disposition home or self-care (01) ==
LOC: ONC 12:57
PROVIDERS: ATTEND Internal Medicine Hematology & Oncology
DX: C34.11 Malignant neoplasm of upper lobe, right bronchus or lung (principal); C79.31 Secondary malignant neoplasm of brain; I25.10 Atherosclerotic heart disease of native coronary artery without angina pectoris; E78.00 Pure hypercholesterolemia, unspecified; J44.9 Chronic obstructive pulmonary disease, unspecified; F17.210 Nicotine dependence, cigarettes, uncomplicated; Z95.1 Presence of aortocoronary bypass graft
CPT/HCPCS: 80053; 84443; 85025; G0463; 36415; 36591; 99213

== ENCOUNTER → 2022-08-09 | Outpatient (CLI) | payer MEDICAID ==
--- NOTE | 2022-08-09 18:37 | Diagnostic Imaging Report ---
Indication: Right foot pain. Time of Exam: 3:58 PM No prior studies are available for comparison. There is amputation of the 2nd toe. There has also been partial amputation of the 3rd toe. Metatarsals are intact. The remaining phalanges are intact. No fractures are seen. Midfoot and hindfoot are unremarkable apart from a small plantar calcaneal spur. No bony destructive changes are seen. Impression: Chronic changes. No acute abnormality is detected. Dictated by: Dictated on workstation # [id number]
== END ==
LOC: RAD FS 15:37
PROVIDERS: ATTEND Family Medicine
DX: M79.671 Pain in right foot (principal)
CPT/HCPCS: 73630

== ENCOUNTER 2022-10-12 13:39 | Outpatient (RCR) | payer MEDICAID ==
[2022-10-12 14:07] LABS: BASOPHILS # (AUTO) 0.1 10^3/uL (0.0-0.1); BASOPHILS % (AUTO) 1 % (0-10); EOSINOPHILS # (AUTO) 0.2 10^3/uL (0.0-0.3); EOSINOPHILS % (AUTO) 2 % (0-10); HEMATOCRIT 34 % (40-54); HEMOGLOBIN 11.4 g/dL (13.3-17.7); LYMPHOCYTES # (AUTO) 1.5 10^3/uL (1.0-4.0); LYMPHOCYTES % (AUTO) 18 % (12-44); MEAN CORPUSCULAR HEMOGLOBIN 28 pg (25-34); MEAN CORPUSCULAR HGB CONC 34 g/dL (32-36); MEAN CORPUSCULAR VOLUME 83 fL (80-99); MEAN PLATELET VOLUME 8.6 fL (9.0-12.2); MONOCYTES # (AUTO) 0.9 10^3/uL (0.0-1.0); MONOCYTES % (AUTO) 11 % (0-12); NEUTROPHILS # (AUTO) 5.6 10^3/uL (1.8-7.8); NEUTROPHILS % (AUTO) 68 % (42-75); PLATELET COUNT 221 10^3/uL (130-400); WHITE BLOOD COUNT 8.2 10^3/uL (4.3-11.0)
[2022-10-12 14:27] LABS: ALBUMIN 3.7 GM/DL (3.2-4.5); BILIRUBIN,TOTAL 0.3 MG/DL (0.1-1.0); CALCIUM 8.7 MG/DL (8.5-10.1); CREATININE SERUM 1.27 MG/DL (0.60-1.30); POTASSIUM 3.8 MMOL/L (3.6-5.0); TOTAL PROTEIN 6.5 GM/DL (6.4-8.2)
== END 2022-11-04 | disposition home or self-care (01) ==
LOC: ONC 13:39
PROVIDERS: ATTEND Internal Medicine Hematology & Oncology
DX: C34.11 Malignant neoplasm of upper lobe, right bronchus or lung (principal); C79.31 Secondary malignant neoplasm of brain; I25.10 Atherosclerotic heart disease of native coronary artery without angina pectoris; E78.00 Pure hypercholesterolemia, unspecified; J44.9 Chronic obstructive pulmonary disease, unspecified; F17.210 Nicotine dependence, cigarettes, uncomplicated; Z95.1 Presence of aortocoronary bypass graft
CPT/HCPCS: 36415; 80053; 84443; 85025

== ENCOUNTER → 2023-01-04 | Outpatient (RCR) | payer MEDICAID ==
[2023-01-04 10:53] LABS: BASOPHILS # (AUTO) 0.1 10^3/uL (0.0-0.1); BASOPHILS % (AUTO) 1 % (0-10); EOSINOPHILS # (AUTO) 0.2 10^3/uL (0.0-0.3); EOSINOPHILS % (AUTO) 2 % (0-10); HEMATOCRIT 35 % (40-54); HEMOGLOBIN 11.9 g/dL (13.3-17.7); LYMPHOCYTES # (AUTO) 1.7 10^3/uL (1.0-4.0); LYMPHOCYTES % (AUTO) 18 % (12-44); MEAN CORPUSCULAR HEMOGLOBIN 30 pg (25-34); MEAN CORPUSCULAR HGB CONC 34 g/dL (32-36); MEAN CORPUSCULAR VOLUME 89 fL (80-99); MEAN PLATELET VOLUME 9.2 fL (9.0-12.2); MONOCYTES # (AUTO) 0.9 10^3/uL (0.0-1.0); MONOCYTES % (AUTO) 10 % (0-12); NEUTROPHILS # (AUTO) 6.7 10^3/uL (1.8-7.8); NEUTROPHILS % (AUTO) 70 % (42-75); PLATELET COUNT 258 10^3/uL (130-400); WHITE BLOOD COUNT 9.5 10^3/uL (4.3-11.0)
[2023-01-04 11:11] LABS: BILIRUBIN,TOTAL 0.3 MG/DL (0.1-1.0); CALCIUM 8.8 MG/DL (8.5-10.1); CREATININE SERUM 1.36 MG/DL (0.60-1.30); POTASSIUM 4.3 MMOL/L (3.6-5.0); TOTAL PROTEIN 6.9 GM/DL (6.4-8.2)
== END | disposition home or self-care (01) ==
LOC: ONC 10:36
PROVIDERS: ATTEND Internal Medicine Hematology & Oncology
DX: Z45.2 Encounter for adjustment and management of vascular access device (principal); C34.11 Malignant neoplasm of upper lobe, right bronchus or lung; C79.31 Secondary malignant neoplasm of brain; I25.10 Atherosclerotic heart disease of native coronary artery without angina pectoris; E78.00 Pure hypercholesterolemia, unspecified; J44.9 Chronic obstructive pulmonary disease, unspecified; F17.210 Nicotine dependence, cigarettes, uncomplicated; Z95.1 Presence of aortocoronary bypass graft
CPT/HCPCS: 36415; 36591; 80053; 85025

== ENCOUNTER 2023-05-30 08:58 | Emergency (ER) | payer MEDICAID ==
[~2023-05-30] VITALS: Ht 182 cm; Wt 71.0 kg
[2023-05-30 09:39] LABS: BASOPHILS # (AUTO) 0.1 10^3/uL (0.0-0.1); BASOPHILS % (AUTO) 0 % (0-10); EOSINOPHILS % (AUTO) 0 % (0-10); HEMATOCRIT 29 % (40-54); LYMPHOCYTES # (AUTO) 1.1 10^3/uL (1.0-4.0); LYMPHOCYTES % (AUTO) 2 % (12-44); MEAN CORPUSCULAR HEMOGLOBIN 30 pg (25-34); MEAN CORPUSCULAR HGB CONC 31 g/dL (32-36); MEAN CORPUSCULAR VOLUME 97 fL (80-99); MEAN PLATELET VOLUME 9.5 fL (9.0-12.2); MONOCYTES % (AUTO) 12 % (0-12); NEUTROPHILS # (AUTO) 40.2 10^3/uL (1.8-7.8); NEUTROPHILS % (AUTO) 83 % (42-75); PLATELET COUNT 381 10^3/uL (130-400)
[2023-05-30 09:45] LABS: WHITE BLOOD COUNT 48.5 10^3/uL (4.3-11.0)
[2023-05-30] MEDS ORDERED: NS IV 1000 ML 1,000 ML IV SCH ×2 (09:45→10:30)
[2023-05-30 09:55] LABS: CHLORIDE 107 MMOL/L (98-107); POTASSIUM 4.8 MMOL/L (3.6-5.0); SODIUM 141 MMOL/L (135-145)
[2023-05-30] MEDS ORDERED: CEFEPIME INJECTION 1,000 MG in NS (IVPB) 50 ML 50 ML IV ONE (10:00)
[2023-05-30 10:08] LABS: FIBRIN DEGRADATION PRODUCTS 4.36 UG/ML (0.00-0.49); INR 1.5 (0.8-1.4); PROTHROMBIN TIME PATIENT 18.4 SEC (12.2-14.7)
[2023-05-30 10:10] LABS: ALANINE AMINOTRANSFERASE 12 U/L (0-55); ALKALINE PHOSPHATASE 131 U/L (40-136); BILIRUBIN,TOTAL 0.4 MG/DL (0.1-1.0); BUN/CREATININE RATIO 9; CALCIUM 8.7 MG/DL (8.5-10.1); CARBON DIOXIDE 15 MMOL/L (21-32); CREATININE SERUM 2.74 MG/DL (0.60-1.30); GFR ESTIMATED 26; GLUCOSE 97 MG/DL (70-105); MAGNESIUM 1.3 MG/DL (1.6-2.4); TOTAL PROTEIN 6.4 GM/DL (6.4-8.2)
[2023-05-30 10:11] LABS: ALBUMIN 3.5 GM/DL (3.2-4.5)
[2023-05-30 10:23] LABS: BAND NEUTROPHILS 25 %; LYMPHOCYTES % (MANUAL) 1 %; METAMYELOCYTES % 1 %; MONOCYTES % (MANUAL) 13 %; NEUTROPHILS % (MANUAL) 60 %; PLATELET ESTIMATE ADEQUATE
--- NOTE | 2023-05-30 10:23 | Diagnostic Imaging Report ---
Indication: Leg swelling Frontal chest obtained at 10:00 a.m. Comparison made to 12/26/2020. Heart is normal in size. There is central vascular congestion with borderline edema. There is calcified granuloma in the left midlung. Calcified nodule in right apex is unchanged compared to the prior study. There is no pneumothorax or pleural fluid. Port-A-Cath is unchanged with tip overlying the SVC. Impression: Central vascular congestion with borderline edema. No consolidation or pleural fluid. Calcified granulomata in left midlung and hilum. Stable calcified nodule in the right upper lobe. Dictated by: Dictated on workstation # [id number]
[2023-05-30 10:24] LABS: HYPOCHROMASIA SLIGHT; MICROCYTOSIS SLIGHT
--- NOTE | 2023-05-30 10:26 | ED General ---
General Chief Complaint: General Problems/Pain Stated Complaint: LEG PAIN Nursing Triage Note: Patient has presented to ER by EMS with cc of right leg pain. Patient reports post op surger on his leg to clear a blockage in his leg. He presented to ER with what appears to old dressings from near his right ankle to his groin. Patient reports that a few days ago Dr. Mullen had taken out the kei. He is unsure where he had the surgery - "some where in [place]". He is very foul smelling upon entering the room. Patient reports that he has mostly just sat in his recliner for the last 2 weeks since having the surgery. He is unsure about any follow up visits. He is unsure of how he is to care for the dressings on his right leg. History of Present Illness Date Seen by Provider: May 30, 2023 Time Seen by Provider: 09:02 Initial Comments 62 yr M with PMH of Seizures and DVT/Asthma/ HTN/ BPH, is brought in by EMS with complaints of right leg pain and swelling. Patient has had a surgery done last week and a [facility] to clear blockages in his right leg. Patient has not had his dressings changed since then. Patient is a very poor historian and does not member the hospital he had a surgery at, and also cannot contribute much to his past medical history. He is unsure if he is on a blood thinner. Patient lives at home alone. Patient reports that his blood pressure typically runs really low. Denies any known fever and chills, chest pain, palpitations, shortness of breath. We have called the patient's PCP and sister, and was told that his surgery was done at a [facility] with [facility], at [facility]. Allergies and Home Medications Allergies Coded Allergies: nitroglycerin (Verified Allergy, Unknown, 04/14/16) morphine (Verified Adverse Reaction, Mild, nausea, 01/15/19) Patient Home Medication List Home Medication List Reviewed: Yes Albuterol Sulfate (Albuterol Sulfate) 2.5 Mg/3 Ml Vial.neb, 3 ML NEB Q8H PRN for SHORTNESS OF BREATH, (Reported) Entered as Reported by: LYNDSAY HARMAN on 12/22/20 1046 Alprazolam (Alprazolam) 0.5 Mg Tablet, 0.5 MG PO QID PRN for ANXIETY, (Reported) Entered as Reported by: DILEEP APPIAH on 09/01/19 1107 Atorvastatin Calcium (Atorvastatin Calcium) 10 Mg Tablet, 10 MG PO HS, (Reported) Entered as Reported by: LYNDSAY HARMAN on 03/20/20 1125 Cefdinir (Cefdinir) 300 Mg Capsule, 300 MG PO BID Prescribed by: WOO VAZQUEZ on 12/29/20 1337 Cholecalciferol (Vitamin D3) (Vitamin D3) 25 Mcg Capsule, 25 MCG PO DAILY, (Reported) Entered as Reported by: LYNDSAY HARMAN on 12/22/20 1046 Fluoxetine HCl (Fluoxetine HCl) 40 Mg Capsule, 40 MG PO DAILY, (Reported) Entered as Reported by: LYNDSAY HARMAN on 12/22/20 1046 Gabapentin (Neurontin) 300 Mg Capsule, 300 MG PO TID, (Reported) Entered as Reported by: LYNDSAY HARMAN on 12/22/20 1046 Levetiracetam (Levetiracetam) 500 Mg Tablet, 500 MG PO BID, (Reported) Entered as Reported by: LYNDSAY HARMAN on 12/22/20 1046 Metoprolol Tartrate (Metoprolol Tartrate) 25 Mg Tablet, 25 MG PO BID, (Reported) Entered as Reported by: DILEEP APPIAH on 09/01/19 1107 Multivitamin (Multivitamin) 1 Each Tablet, 1 EACH PO DAILY, (Reported) Entered as Reported by: LYNDSAY HARMAN on 12/22/20 1046 Olanzapine (Olanzapine) 5 Mg Tablet, 5 MG PO HS, (Reported) Entered as Reported by: LYNDSAY HARMAN on 12/22/20 1046 Oxycodone HCl (Oxycontin) 20 Mg Tab.er.12h, 20 MG PO BID, (Reported) Entered as Reported by: LYNDSAY HARMAN on 03/20/20 1125 Pantoprazole Sodium (Pantoprazole Sodium) 40 Mg Tablet.dr, 40 MG PO DAILY, (Reported) Entered as Reported by: DILEEP APPIAH on 09/01/19 1107 Sennosides/Docusate Sodium (Senna-S Tablet) 1 Each Tablet, 1 EACH PO BID, (Reported) Entered as Reported by: LYNDSAY HARMAN on 03/20/20 1126 Sucralfate (Sucralfate) 1 Gm Tablet, 1 GM PO QID, (Reported) Entered as Reported by: LYNDSAY HARMAN on 12/22/20 1046 Tamsulosin HCl (Flomax) 0.4 Mg Cap, 0.4 MG PO BID Prescribed by: WOO VAZQUEZ on 12/29/20 1337 [Bethanechol Chl] 25 MG TAB, 25 MG PO ACHS Prescribed by: WOO VAZQUEZ on 12/29/20 1337 Review of Systems Review of Systems Constitutional: malaise EENTM: no symptoms reported Respiratory: no symptoms reported Cardiovascular: no symptoms reported Gastrointestinal: no symptoms reported Genitourinary: no symptoms reported Musculoskeletal: see HPI, other (Leg swelling and pain) Skin: see HPI Past Nthhhhx-Pvuahc-Hkrscr Hx Patient Social History Tobacco Use?: Yes Tobacco type used: Cigarettes Smoking Status: Current Everyday Smoker Substance use?: No Alcohol Use?: No Seasonal Allergies Seasonal Allergies: No Past Medical History Surgeries: Yes (colostomy, port (left), toe amputation) Bowel Surgery, Cardiac Respiratory: No Cardiac: Yes Coronary Artery Disease, Heart Attack Neurological: Yes Seizure Disorder Genitourinary: No Gastrointestinal: Yes (colostomy) Gastroesophageal Reflux, Gastrointestinal Bleed, Chronic Constipation Musculoskeletal: Yes Arthritis Endocrine: No HEENT: No Cancer: Yes (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) Lung What Type of Treatment Did You: Chemotherapy, Radiation, Other Psychosocial: No Anxiety Integumentary: Yes (nicotine discoloration of the hands) Blood Disorders: No Family Medical History No Pertinent Family Hx Physical Exam-Suspected Sepsis Physical Exam Vital Signs Vital Signs - First Documented 05/30/23 10:00 Temp 36.6 Pulse 101 Resp 20 B/P (MAP) 75/48 (57) Pulse Ox 100 O2 Delivery Room Air Capillary Refill : Blood Pressure Mean: 57 Height, Weight, BMI Height: 6'0" Weight: 147lbs. oz. [id number]; 21.00 BMI Method:Stated General Appearance: No Apparent Distress, WD/WN, Thin, Other (Appears lethargic) HEENT: PERRL/EOMI, Normal ENT Inspection, Other (Cracked lips and dry mucous membranes with tenting of skin) Neck: Full Range of Motion, Normal Inspection, Non Tender Respiratory: Chest Non Tender, No Accessory Muscle Use, No Respiratory Distress, Rales (very mild) Cardiovascular: Tachycardia Gastrointestinal: Non Tender, Soft Extremity: Inflammation (RIGHT LOWER EXTREMITY shows a postsurgical wound which extends from his medial side of mid lower leg all the way up to his groin. The section of the incision that is below the knee and also the section ehich extends from the lower one third of the thigh to right below the knee shows serosanguineous fluid discharge with surrounding erythema of the entire leg and tenderness to palpation. Leg is warm to touch and has edema. Fouls smelling discharge from wound), Swelling Neurologic/Psychiatric: Alert, Oriented x3, No Motor/Sensory Deficits Skin: pallor Focused Exam Lactate Level 05/30/23 09:10: Lactic Acid Level 7.70*H Lactic Acid Level Laboratory Tests Test 05/30/23 09:10 Lactic Acid Level 7.70 MMOL/L (0.50-2.00) *H Progress/Results/Core Measures Suspected Sepsis SIRS Temperature: Pulse: 101 Respiratory Rate: 20 Laboratory Tests 05/30/23 09:10: White Blood Count 48.5*H Blood Pressure 75 /48 Mean: 57 05/30/23 09:10: Lactic Acid Level 7.70*H Laboratory Tests 05/30/23 09:10: Creatinine 2.74H, INR Comment 1.5H, Platelet Count 381, Total Bilirubin 0.4 Results/Orders Lab Results Laboratory Tests Test 05/30/23 09:10 Range/Units White Blood Count 48.5 *H 4.3-11.0 10^3/uL Red Blood Count 2.97 L 4.30-5.52 10^6/uL Hemoglobin 9.0 L 13.3-17.7 g/dL Hematocrit 29 L 40-54 % Mean Corpuscular Volume 97 80-99 fL Mean Corpuscular Hemoglobin 30 25-34 pg Mean Corpuscular Hemoglobin Concent 31 L 32-36 g/dL Red Cell Distribution Width 15.3 H 10.0-14.5 % Platelet Count 381 130-400 10^3/uL Mean Platelet Volume 9.5 9.0-12.2 fL Immature Granulocyte % (Auto) 2 % Neutrophils (%) (Auto) 83 H 42-75 % Lymphocytes (%) (Auto) 2 L 12-44 % Monocytes (%) (Auto) 12 0-12 % Eosinophils (%) (Auto) 0 0-10 % Basophils (%) (Auto) 0 0-10 % Neutrophils # (Auto) 40.2 H 1.8-7.8 10^3/uL Lymphocytes # (Auto) 1.1 1.0-4.0 10^3/uL Monocytes # (Auto) 6.0 H 0.0-1.0 10^3/uL Eosinophils # (Auto) 0.0 0.0-0.3 10^3/uL Basophils # (Auto) 0.1 0.0-0.1 10^3/uL Immature Granulocyte # (Auto) 1.1 H 0.0-0.1 10^3/uL Neutrophils % (Manual) 60 % Lymphocytes % (Manual) 1 % Monocytes % (Manual) 13 % Metamyelocytes % 1 % Band Neutrophils 25 % Platelet Estimate ADEQUATE Percent Immature Platelet Fraction 1.4 0.0-7.6 % Hypochromasia SLIGHT Microcytosis SLIGHT Macrocytosis SLIGHT Prothrombin Time 18.4 H 12.2-14.7 SEC INR Comment 1.5 H 0.8-1.4 Activated Partial Thromboplast Time 38 H 24-35 SEC D-Dimer 4.36 H 0.00-0.49 UG/ML Sodium Level 141 135-145 MMOL/L Potassium Level 4.8 3.6-5.0 MMOL/L Chloride Level 107 98-107 MMOL/L Carbon Dioxide Level 15 L 21-32 MMOL/L Anion Gap 19 H 5-14 MMOL/L Blood Urea Nitrogen 25 H 7-18 MG/DL Creatinine 2.74 H 0.60-1.30 MG/DL Estimat Glomerular Filtration Rate 26 BUN/Creatinine Ratio 9 Glucose Level 97 70-105 MG/DL Lactic Acid Level 7.70 *H 0.50-2.00 MMOL/L Calcium Level 8.7 8.5-10.1 MG/DL Corrected Calcium 9.1 8.5-10.1 MG/DL Magnesium Level 1.3 L 1.6-2.4 MG/DL Total Bilirubin 0.4 0.1-1.0 MG/DL Aspartate Amino Transf (AST/SGOT) 15 5-34 U/L Alanine Aminotransferase (ALT/SGPT) 12 0-55 U/L Alkaline Phosphatase 131 40-136 U/L Troponin I < 0.30 <0.30 NG/ML Pro-B-Type Natriuretic Peptide 5642.0 H <125.0 PG/ML Total Protein 6.4 6.4-8.2 GM/DL Albumin 3.5 3.2-4.5 GM/DL My Orders Orders - NATANAEL BOWMAN MD Chest 1 View Ap/Pa Only (05/30/23 09:29) Cbc And Automated Diff (05/30/23 09:29) Comprehensive Metabolic Panel (05/30/23 09:29) Fibrin Degradation Products (05/30/23 09:29) Drug Screen Stat (Urine) (05/30/23 09:29) Magnesium (05/30/23 09:29) Protime With Inr (05/30/23 09:29) Partial Thromboplastin Time (05/30/23 09:29) Ua Culture If Indicated (05/30/23:29) Blood Culture (05/30/23 09:29) Probnp Fs (05/30/23 09:29) Troponin I Fs (05/30/23 09:29) Lactic Acid Analyzer (05/30/23 09:29) Ed Iv/Invasive Line Start (05/30/23 09:35) Ns Iv 1000 Ml (Ns Iv 1000 Ml) (05/30/23 09:45) Manual Differential (05/30/23 09:10) Ed Iv/Invasive Line Start (05/30/23 10:00) Ed Iv/Invasive Line Start (05/30/23 10:00) Vital Signs Adult Sepsis Patie Q15M (05/30/23 10:00) Wound Culture (05/30/23 10:00) Cefepime Injection (Cefepime Injection) (05/30/23 10:00) Ed Iv/Invasive Line Start (05/30/23 10:18) Ns Iv 1000 Ml (Ns Iv 1000 Ml) (05/30/23 10:30) Magnesium 2 Gm/50 Ml Ivpb (Magnesium 2 G (05/30/23 10:45) Magnesium Sulfate Inj (Magnesium Sulfate (05/30/23 10:45) Ns (Ivpb) 50 Ml (Sodium Chloride 0.9% 50 (05/30/23 10:46) Medications Given in ED Current Medications Medications Dose Ordered Sig/Cortney Route Start Time Stop Time Status Last Admin Dose Admin Cefepime HCl 1000 mg/Sodium Chloride 50 ml @ 100 mls/hr ONCE ONCE IV 05/30/23 10:00 05/30/23 10:29 DC 05/30/23 10:10 100 MLS/HR Magnesium Sulfate 50 ml @ 50 mls/hr ONCE ONCE IV 05/30/23 10:45 05/30/23 11:44 05/30/23 10:52 50 MLS/HR Vital Signs/I&O 05/30/23 10:00 Temp 36.6 Pulse 101 Resp 20 B/P (MAP) 75/48 (57) Pulse Ox 100 O2 Delivery Room Air Capillary Refill : Blood Pressure Mean: 57 Progress Note : Progress Note 1. SEPSIS DUE TO POST SURGICAL INFECTION OF INCISION WOUND: - CBC: WBC is 48.5 with a left shift, hemoglobin is 9 point - UA: - Lactic acid:elevated: 7.7 - Blood cultures and wound cultures sent - Wound is extremely foul smelling. Wound cleaned and new clean dressing placed. The old dressing had not been chnaged since the surgery and was soaked with old blood and discharge - Cefepime iv given in ER -Patient has sepsis with tachycardia, elevated white count, elevated lactic acid, obvious source of infection in the right leg - NS IVF bolus x 2 in the ER with improvement in BP, 3rd bag going at 250/ hr. -Patient had a surgery done at [facility] last week and has not changed his dressings since then. Patient will benefit from admission with surgical consult for wound exploration and IV antibiotics and ultrasound Doppler for the legs and CTA chest. - Discussed with ER physician at [facility] and will transfer ER to ER 2. ACUTE KIDNEY INJURY: - s. creatinine: 2.74 - Pt has received fluids 3. ELEVATED D-DIMER: - D-dimer : elevated 4.36 -Due to elevated kidney function, CTA of the chest would not benefit the patient at this time. Most especially since patient has hypotension which has been stabilized with 2 L of fluid. Patient would benefit from a VQ scan and Doppler ultrasound of the legs. However we do not have ultrasound here in the ER at this time 4. ACUTE CHF vs PULMONARY EDEMA: - Pt does not know if he has CHF, x-ray points to pulmonary edema as well - CXR: Central vascular congestion with borderline edema. No consolidation or pleural fluid. Calcified granulomata in left midlung and hilum. Stable calcified nodule in the right upper lobe. - BNP: Elevated: 5,642 - Will hold on the Lasix,since fluids are more critical at this time due to his hypotension, dehydration, VIRGEN, and sepsis. 5. HYPOMAGNESEMIA: - s. Mg is 1.3 - Repleted with Mag Sulfate 2gm iv in ER Diagnostic Imaging Diagonstic Imaging: Xray Plain Films/CT/US/NM/MRI: chest Comments [facility] [place], [place] NAME: NATALY RITCHIE [facility] REC#: [id number] PT STATUS: REG ER : 1960 PHYSICIAN: NATANAEL BOWMAN MD ADMIT DATE: 05/30/23/ER FS Signed Date of Exam:05/30/23 CHEST 1 VIEW AP/PA ONLY Indication: Leg swelling Frontal chest obtained at 10:00 a.m. Comparison made to 12/26/2020. Heart is normal in size. There is central vascular congestion with borderline edema. There is calcified granuloma in the left midlung. Calcified nodule in right apex is unchanged compared to the prior study. There is no pneumothorax or pleural fluid. Port-A-Cath is unchanged with tip overlying the SVC. Impression: Central vascular congestion with borderline edema. No consolidation or pleural fluid. Calcified granulomata in left midlung and hilum. Stable calcified nodule in the right upper lobe. Dictated by: Dictated on workstation # [id number] Dict: 05/30/23 1020 Trans: 05/30/23 1029 CV [id number] Interpreted by: CATALINA REDDY MD Electronically signed by: CATALINA REDDY MD 05/30/23 1029 Departure Impression Primary Impression: Sepsis following a procedure, initial encounter Additional Impressions: Postoperative wound infection Elevated d-dimer Hypomagnesemia Acute kidney injury Disposition: SHT-TRM HOSP Condition: Unchanged Transfer Transfer Reason: Exceeds level of care Time Spoke to Accepting Phy: 11:25 Transfer Progress Notes Discussed with ER physician at [facility],Dr Phoenix, and accepted for transfer from ER to ER Transfer Facility: [facility] Method of Transfer: Air Departure-Patient Inst. Referrals: RYAN MULLEN MD (PCP) Primary Care Physician NATANAEL BOWMAN MD May 30, 2023 10:26
[2023-05-30] MEDS ORDERED: MAGNESIUM 2 GM/50 ML IVPB 50 ML IV ONE (10:45)
[2023-05-30] MEDS ORDERED: MAGNESIUM SULFATE 1 GM/2 ML VIAL ONE (10:45)
[2023-05-30] MEDS ORDERED: NS (IVPB) 50 ML 50 ML ONE (10:46)
[2023-05-30] MEDS ORDERED: NS IV 1000 ML 1,000 ML IV STA (11:32)
[2023-05-30 12:09] VITALS: BP 93/49
== END 2023-05-30 13:15 | disposition short-term general hospital (02) ==
LOC: EDUNIT# 08:58 → ER FS 08:59
DX: T81.49XA Infection following a procedure, other surgical site, initial encounter (principal); T81.44XA Sepsis following a procedure, initial encounter; E83.42 Hypomagnesemia; N17.9 Acute kidney failure, unspecified; R79.1 Abnormal coagulation profile; F17.210 Nicotine dependence, cigarettes, uncomplicated
CPT/HCPCS: 36415; 71045; 80053; 83605; 83735; 83880; 84484; 85007; 85027; 85379; 85610; 85730; 87040; 87070; 87077; 87186; 87205; 96361; 96365; 96375

== ENCOUNTER → 2023-07-11 | Outpatient (CLI) | payer MEDICAID ==
[~2023-07-11] MED LIST changes: +HOLD METFORMIN - RECEIVED CONTRAST 20 ML VIAL IV SCH; +IOHEXOL 350 MG/ML 100 ML (OMNIPAQUE 350) VIAL IV ONE; +NS 100 ML (IVPB) BAG IV ONE
--- NOTE | 2023-07-11 15:44 | Diagnostic Imaging Report ---
EXAMINATION: CT chest, abdomen and pelvis with intravenous contrast. TECHNIQUE: Multiple contiguous axial images were obtained through the chest, abdomen and pelvis after the uneventful administration of intravenous contrast. All CT scans use one or more of the following dose optimizing techniques: automated exposure control, MA and/or KvP adjustment based on patient size and exam type or iterative reconstruction. HISTORY: Lung cancer COMPARISON: 09/29/2021 FINDINGS: There is no edema or pneumonia. No pleural effusion. No pneumothorax. There is an unchanged 2.9 x 2.7 cm nodule in the right apex. There are central calcifications. There is moderate emphysema. There are mild areas of fibrosis. No new nodule is seen. There is no axillary or supraclavicular lymphadenopathy. There is an unchanged 1.5 cm subcarinal lymph node. No new enlarged lymph nodes. There is an old LAD territory infarct. Left ventricle is mildly dilated. There are severe coronary artery calcifications. No pericardial effusion. Aorta is normal in caliber. The liver is normal without focal lesion. There is no biliary ductal dilation. Gallbladder is normal. Pancreas is normal. Spleen is normal. Adrenal glands are normal. There are simple cysts in the kidneys. No suspicious renal lesion. There is no hydronephrosis. Bladder is decompressed by Perez catheter. There has been a colon resection with ostomy in the left lower quadrant. No dilated bowel. No evidence for bowel inflammation. No free fluid or air. No abdominal or pelvic lymphadenopathy. 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 There is an aortobifemoral bypass. There are no suspicious osseus lesions. There is unchanged moderate L1 compression fracture. There is an old right sacral insufficiency fracture. IMPRESSION: 1. Unchanged right upper lobe nodule and mildly enlarged subcarinal lymph node. 2. No metastatic disease in the abdomen or pelvis. Dictated by: Dictated on workstation # [id number]
== END ==
LOC: RAD 13:17
PROVIDERS: ATTEND Internal Medicine Hematology & Oncology
DX: C79.31 Secondary malignant neoplasm of brain (principal); R91.1 Solitary pulmonary nodule
CPT/HCPCS: 71260; 74177

== ENCOUNTER 2023-07-17 11:51 | Emergency (ER) | payer MEDICAID ==
[~2023-07-17] VITALS: Ht 182.8 cm; Wt 68.0 kg
[~2023-07-17 11:51] MED LIST changes: -HOLD METFORMIN - RECEIVED CONTRAST 20 ML VIAL IV SCH; -IOHEXOL 350 MG/ML 100 ML (OMNIPAQUE 350) VIAL IV ONE; -NS 100 ML (IVPB) BAG IV ONE
--- NOTE | 2023-07-17 12:12 | ED Integumentary General ---
General Chief Complaint: Skin/Wound Problems Stated Complaint: SKIN/PORT ISSUE Source: patient Exam Limitations: no limitations History of Present Illness Date Seen by Provider: Jul 17, 2023 Time Seen by Provider: 12:08 Initial Comments Patient is a 62-year-old male who presents to ED for evaluation for a exposed port. Patient states he had his port placed 10 years ago. History of acute cancer currently in remission. He states he gets his port flushed every 3 months. Accessed the port last week at the cancer center. Noted a tear of the skin around the port yesterday and this has increased today. Was sent from [facility] ED and rehab for evaluation and port removal. Patient denies any fever, chill s chest pain, shortness of breath, headache, dizziness, abdomianl pain, vomiting, diarrhea. Allergies and Home Medications Allergies Coded Allergies: nitroglycerin (Verified Allergy, Unknown, 04/14/16) morphine (Verified Adverse Reaction, Mild, nausea, 01/15/19) Patient Home Medication List Home Medication List Reviewed: Yes Albuterol Sulfate (Albuterol Sulfate) 2.5 Mg/3 Ml Vial.neb, 3 ML NEB Q8H PRN for SHORTNESS OF BREATH, (Reported) Entered as Reported by: LYNDSAY HARMAN on 12/22/20 1046 Alprazolam (Alprazolam) 0.5 Mg Tablet, 0.5 MG PO QID PRN for ANXIETY, (Reported) Entered as Reported by: DILEEP APPIAH on 09/01/19 1107 Atorvastatin Calcium (Atorvastatin Calcium) 10 Mg Tablet, 10 MG PO HS, (Reported) Entered as Reported by: LYNDSAY HARMAN on 03/20/20 1125 Cefdinir (Cefdinir) 300 Mg Capsule, 300 MG PO BID Prescribed by: WOO VAZQUEZ on 12/29/20 1337 Cholecalciferol (Vitamin D3) (Vitamin D3) 25 Mcg Capsule, 25 MCG PO DAILY, (Reported) Entered as Reported by: LYNDSAY HARMAN on 12/22/20 1046 Fluoxetine HCl (Fluoxetine HCl) 40 Mg Capsule, 40 MG PO DAILY, (Reported) Entered as Reported by: LYNDSAY HARMAN on 12/22/20 1046 Gabapentin (Neurontin) 300 Mg Capsule, 300 MG PO TID, (Reported) Entered as Reported by: LYNDSAY HARMAN on 12/22/20 1046 Levetiracetam (Levetiracetam) 500 Mg Tablet, 500 MG PO BID, (Reported) Entered as Reported by: LYNDSAY HARMAN on 12/22/20 1046 Metoprolol Tartrate (Metoprolol Tartrate) 25 Mg Tablet, 25 MG PO BID, (Reported) Entered as Reported by: DILEEP APPIAH on 09/01/19 1107 Multivitamin (Multivitamin) 1 Each Tablet, 1 EACH PO DAILY, (Reported) Entered as Reported by: LYNDSAY HARMAN on 12/22/20 1046 Olanzapine (Olanzapine) 5 Mg Tablet, 5 MG PO HS, (Reported) Entered as Reported by: LYNDSAY HARMAN on 12/22/20 1046 Oxycodone HCl (Oxycontin) 20 Mg Tab.er.12h, 20 MG PO BID, (Reported) Entered as Reported by: LYNDSAY HARMAN on 03/20/20 1125 Pantoprazole Sodium (Pantoprazole Sodium) 40 Mg Tablet.dr, 40 MG PO DAILY, (Reported) Entered as Reported by: DILEEP APIPAH on 09/01/19 1107 Sennosides/Docusate Sodium (Senna-S Tablet) 1 Each Tablet, 1 EACH PO BID, (Reported) Entered as Reported by: LYNDSAY HARMAN on 03/20/20 1126 Sucralfate (Sucralfate) 1 Gm Tablet, 1 GM PO QID, (Reported) Entered as Reported by: LYNDSAY HARMAN on 12/22/20 104 Tamsulosin HCl (Flomax) 0.4 Mg Cap, 0.4 MG PO BID Prescribed by: WOO VAZQUEZ on 12/29/20 1337 [Bethanechol Chl] 25 MG TAB, 25 MG PO ACHS Prescribed by: WOO VAZQUEZ on 12/29/201336 Review of Systems Review of Systems Constitutional: No chills, No diaphoresis, No malaise, No weakness EENTM: No ear pain, No blurred vision, No double vision Respiratory: No cough, No dyspnea on exertion Cardiovascular: No chest pain Gastrointestinal: No abdominal pain, No diarrhea, No nausea, No vomiting Genitourinary: No decreased output, No discharge Musculoskeletal: No back pain, No joint pain, No joint swelling, No muscle pain Skin: No change in color, No change in hair/nails All Other Systems Reviewed Negative Unless Noted: Yes Past Owwumcl-Tpuzsv-Oquajt Hx Patient Social History Tobacco Use?: No Smoking Status: Former Smoker Substance use?: No Alcohol Use?: No Pt feels they are or have been: No Immunizations Up To Date Influenza Vaccine Up-to-Date: No; Not Current Seasonal Allergies Seasonal Allergies: No Past Medical History Surgery/Hospitalization HX: BRAIN AND THROAT CANCER- IN REMISSION, HTN, CAD, CERBRAL INFARCT, KIDNEY DO, HLD, Surgeries: Yes (colostomy, port (left), toe amputation) Bowel Surgery, Cardiac Respiratory: No Cardiac: Yes Coronary Artery Disease, Heart Attack Neurological: Yes Seizure Disorder Genitourinary: No Gastrointestinal: Yes (colostomy) Gastroesophageal Reflux, Gastrointestinal Bleed, Chronic Constipation Musculoskeletal: Yes Arthritis Endocrine: No HEENT: No Cancer: Yes (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) Lung What Type of Treatment Did You: Chemotherapy, Radiation, Other Psychosocial: No Anxiety Integumentary: Yes (nicotine discoloration of the hands) Blood Disorders: No Family Medical History No Pertinent Family Hx Physical Exam Vital Signs Vital Signs - First Documented 07/17/23 12:05 Temp 36.8 Pulse 91 Resp 18 B/P (MAP) 92/71 (78) Pulse Ox 100 O2 Delivery Room Air Capillary Refill : General Appearance: WD/WN, no apparent distress HEENT: PERRL/EOMI, normal ENT inspection, TMs normal, pharynx normal Neck: non-tender, full range of motion, supple Cardiovascular: regular rate, rhythm, no edema, no gallop, no JVD Respiratory: chest non-tender, lungs clear, normal breath sounds, no respiratory distress, no accessory muscle use Gastrointestinal: normal bowel sounds, non tender, soft, no organomegaly Back: normal inspection, no CVA tenderness Extremities: normal range of motion, non-tender, normal inspection, no pedal edema Neurologic/Psychiatric: business objects II-XII nml as tested, no motor/sensory deficits, alert, normal mood/affect, oriented x 3 Skin: other (Port exposed left upper chest. Localized skin irritation with mild redness. No erythema streaking severe tenderness on palpation.) Progress/Results/Core Measures Results/Orders My Orders Orders - WALT CARD PA Chest 1 View, Ap/Pa Only (07/17/23 12:00) Vital Signs/I&O 07/17/23 12:05 Temp 36.8 Pulse 91 Resp 18 B/P (MAP) 92/71 (78) Pulse Ox 100 O2 Delivery Room Air Departure Communication (PCP) Patient is a 62-year-old male who presents to the ED for exposed port. Patient has a port to his left upper chest. Port was placed 10 years ago. History of cancer currently in remission. This port was Accessed, 1 week ago at the cancer center with no issues or complications. He states he noted the skin tearing around the port site yesterday. He states his port has been exposed since yesterday. Dressing was applied at primary care and rehab. He has no other concerns or complications at this time. Denies fever, chills, chest pain or sh ortness of breath. Last time patient ate was at 9 AM. Exposed port noted around 1 cm. Localized skin irritation with very minimal erythema. No evidence of cellulitis. No purulent drainage. No tenderness to palpate. Discussed patient with Dr. Robins general surgeon who evaluated patient here in the ED. Scheduled outpatient surgery tomorrow at 12 PM. N.p.o. after midnight. [facility]. Impression Primary Impression: Vascular port complication Disposition: 01 HOME, SELF-CARE Condition: Stable Departure-Patient Inst. Decision time for Depature: 12:12 Referrals: SELFRYAN MD (PCP/Family) Primary Care Physician Patient Instructions: General (DC) Add. Discharge Instructions: N.p.o. after midnight. Recommended going to registration at 11 for surgery at 12. All discharge instructions reviewed with patient and/or family. Voiced understanding. WALT CARD Jul 17, 2023 12:12
--- NOTE | 2023-07-17 12:16 | Diagnostic Imaging Report ---
INDICATION: Malfunctioning port. COMPARISON: 05/30/2023. FINDINGS: Single frontal radiographic view of the chest was obtained and again demonstrates 2.8 cm partially calcified nodule of the right apex. Calcified granuloma are also noted on the left. There is no large effusion or pneumothorax. Cardiac silhouette and pulmonary vasculature are within normal limits. Left-sided internal jugular Port-A-Cath is seen with tip in the SVC. Osseous structures show no acute abnormalities. IMPRESSION: 1. Indwelling left internal jugular Port-A-Cath as above. 2. Redemonstration of partially calcified nodular right upper lobe nodule. Dictated by: Dictated on workstation # [id number]
[2023-07-17 12:34] VITALS: BP 112/85
--- NOTE | 2023-07-17 13:21 | Consultation - Surgery ---
History of Present Illness History of Present Illness Patient Consulted On(bijan/time) 07/17/23 13:14 Time Seen by Provider: 12:51 History of Present Illness Surgery asked to consult regarding Port malfunction. HPI per ED: Patient is a 62-year-old male who presents to ED for evaluation for a exposed port. Patient states he had his port placed 10 years ago. History of acute cancer currently in remission. He states he gets his port flushed every 3 months. Accessed the port last week at the cancer center. Noted a tear of the skin around the port yesterday and this has increased today. Was sent from [facility] and rehab for evaluation and port removal. Patient denies any fever, chills chest pain, shortness of breath, headache, dizziness, abdomianl pain, vomiting, diarrhea. When I saw pt he denied any pain and states it has only "recently" eroded through the skin. He is not using it for chemotherapy. Allergies and Home Medications Allergies Coded Allergies: nitroglycerin (Verified Allergy, Unknown, 04/14/16) morphine (Verified Adverse Reaction, Mild, nausea, 01/15/19) Patient Home Medication List Home Medication List Reviewed: Yes Albuterol Sulfate (Albuterol Sulfate) 2.5 Mg/3 Ml Vial.neb, 3 ML NEB Q8H PRN for SHORTNESS OF BREATH, (Reported) Entered as Reported by: LYNDSAY HARMAN on 12/22/20 1046 Alprazolam (Alprazolam) 0.5 Mg Tablet, 0.5 MG PO QID PRN for ANXIETY, (Reported) Entered as Reported by: DILEEP APPIAH on 09/01/19 1107 Atorvastatin Calcium (Atorvastatin Calcium) 10 Mg Tablet, 10 MG PO HS, (Reported) Entered as Reported by: LYNDSAY HARMAN on 03/20/20 1125 Cefdinir (Cefdinir) 300 Mg Capsule, 300 MG PO BID Prescribed by: WOO VAZQUEZ on 12/29/20 1337 Cholecalciferol (Vitamin D3) (Vitamin D3) 25 Mcg Capsule, 25 MCG PO DAILY, (Reported) Entered as Reported by: LYNDSAY HARMAN on 12/22/20 1046 Fluoxetine HCl (Fluoxetine HCl) 40 Mg Capsule, 40 MG PO DAILY, (Reported) Entered as Reported by: LYNDSAY HARMAN on 12/22/20 1046 Gabapentin (Neurontin) 300 Mg Capsule, 300 MG PO TID, (Reported) Entered as Reported by: LYNDSAY HARMAN on 12/22/20 1046 Levetiracetam (Levetiracetam) 500 Mg Tablet, 500 MG PO BID, (Reported) Entered as Reported by: LYNDSAY HARMAN on 12/22/20 1046 Metoprolol Tartrate (Metoprolol Tartrate) 25 Mg Tablet, 25 MG PO BID, (Reported) Entered as Reported by: DILEEP APPIAH on 09/01/19 1107 Multivitamin (Multivitamin) 1 Each Tablet, 1 EACH PO DAILY, (Reported) Entered as Reported by: LYNDSAY HARMAN on 12/22/20 1046 Olanzapine (Olanzapine) 5 Mg Tablet, 5 MG PO HS, (Reported) Entered as Reported by: LYNDSAY HARMAN on 12/22/20 104 Oxycodone HCl (Oxycontin) 20 Mg Tab.er.12h, 20 MG PO BID, (Reported) Entered as Reported by: LYNDSAY HARMAN on 03/20/20 1125 Pantoprazole Sodium (Pantoprazole Sodium) 40 Mg Tablet.dr, 40 MG PO DAILY, (Reported) Entered as Reported by: DILEEP APPIAH on 09/01/19 1107 Sennosides/Docusate Sodium (Senna-S Tablet) 1 Each Tablet, 1 EACH PO BID, (Reported) Entered as Reported by: LYNDSAY HARMAN on 03/20/20 1126 Sucralfate (Sucralfate) 1 Gm Tablet, 1 GM PO QID, (Reported) Entered as Reported by: LYNDSAY HARMAN on 12/22/20 104 Tamsulosin HCl (Flomax) 0.4 Mg Cap, 0.4 MG PO BID Prescribed by: WOO VAZQUEZ on 12/29/20 133 [Bethanechol Chl] 25 MG TAB, 25 MG PO ACHS Prescribed by: WOO VAZQUEZ on 12/29/201336 Past Ylgodhs-Gecjlb-Jnexzc Hx Patient Social History Smoking Status: Former Smoker (smoked for 30 year) Type Used: Cigarettes 2nd Hand Smoke Exposure: No Recent Hopitalizations: No Alcohol Use?: No Immunizations Up To Date Date of Pneumonia Vaccine: May 11, 2016 Date of Influenza Vaccine: May 02, 2019 Seasonal Allergies Seasonal Allergies: No Surgeries History of Surgeries: Yes (colostomy, port (left), toe amputation) Surgeries: Bowel Surgery, Cardiac Respiratory History of Respiratory Disorde: No Cardiovascular History of Cardiac Disorders: Yes Cardiac Disorders: Coronary Artery Disease, Heart Attack Neurological History of Neurological Disord: Yes Neurological Disorders: Seizure Disorder Genitourinary History of Genitourinary Disor: No Gastrointestinal History of Gastrointestinal Di: Yes (colostomy) Gastrointestinal Disorders: Gastroesophageal Reflux, Gastrointestinal Bleed, Chronic Constipation Musculoskeletal History of Musculoskeletal Dis: Yes Musculoskeletal Disorders: Arthritis Endocrine History of Endocrine Disorders: No HEENT History of HEENT Disorders: No Cancer History of Cancer: Yes (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) Cancer: Lung Psychosocial History of Psychiatric Problem: No Behavioral Health Disorders: Anxiety Integumentary History of Skin or Integumenta: Yes (nicotine discoloration of the hands) Blood Transfusions History of Blood Disorders: No Family Medical History Significant Family History: Heart Disease (Father had an UT), Vascular Disease (Mother had clots in legs) Review of Systems-General Constitutional: No fever, No malaise EENTM: No blurred vision, No epistaxis Respiratory: No cough, No dyspnea on exertion Cardiovascular: No chest pain, No palpitations Gastrointestinal: No abdominal pain, No nausea, No vomiting Genitourinary: No dysuria, No frequency, No hematuria Musculoskeletal: joint pain, joint swelling, muscle stiffness Skin: No change in hair/nails Physical Exam-General Problems Physical Exam Vital Signs Vital Signs - First Documented 07/17/23 12:05 Temp 36.8 Pulse 91 Resp 18 B/P (MAP) 92/71 (78) Pulse Ox 100 O2 Delivery Room Air Capillary Refill : General Appearance: no apparent distress, thin Eyes: Bilateral Eye PERRL, Bilateral Eye EOMI HEENT: pharynx normal, other (poor dentition) Neck: non-tender, supple Respiratory: lungs clear, normal breath sounds, no respiratory distress, no accessory muscle use Cardiovascular: regular rate, rhythm, no murmur Gastrointestinal: non tender, soft, no organomegaly Extremities: no pedal edema, no calf tenderness Neurologic/Psychiatric: alert, normal mood/affect Skin: normal color, warm/dry, other (Left chest wall the port is eroded through the skin, but no signs of infection) Assessment/Plan Assessment/Plan Assessment/Plan Port Malfunction The patients port has eroded through the skin, it is thin at this site but there is only minimal erythema. It is not infected at this time, but cannot remain open or it will get infected. Pt is no longer using it and wants it removed. Unfortunately, he ate at 9am and could not have any procedure until 5pm. I will send him back to [facility] and plan for procedure tomorrow at noon. I did talk to him about risks and complications; not limited to pain, bleeding, infection scar and even loss of the catheter. I will probably have to leave the wound open to let it heal by secondary intent. All questions answered to his satisfaction. Informed [facility] and rehab that he must be NPO after midnight. COBY RAMIRES DO Jul 17, 2023 13:21
[2023-07-18] MEDS ORDERED: FERR325T18 PO (08:58)
[2023-07-18] MEDS ORDERED: MIRT7.5T8 PO (08:58)
[2023-07-18] MEDS ORDERED: ACET325C7 PO (08:58)
[2023-07-18] MEDS ORDERED: FAMO-356 PO (08:58)
[2023-07-18] MEDS ORDERED: CYAN100071 PO (08:58)
[2023-07-18] MEDS ORDERED: POTA10CA84 PO (08:58)
[2023-07-18] MEDS ORDERED: ASPI-999 PO (08:58)
[2023-07-18] MEDS ORDERED: MAGN400T7 PO (08:58)
[2023-07-18] MEDS ORDERED: ASCO250T16 PO (08:58)
[2023-07-18] MEDS ORDERED: CLOP-31 PO (08:58)
[2023-07-18] MEDS ORDERED: ACHD5005 PO (14:11)
== END 2023-07-17 13:26 | disposition home or self-care (01) ==
LOC: EDUNIT# 11:51 → ER 11:52
DX: T82.524A Displacement of infusion catheter, initial encounter (principal); C34.90 Malignant neoplasm of unspecified part of unspecified bronchus or lung; C79.31 Secondary malignant neoplasm of brain; C79.89 Secondary malignant neoplasm of other specified sites; Z87.891 Personal history of nicotine dependence
CPT/HCPCS: 71045

== ENCOUNTER 2023-07-17 12:44 | Outpatient (CLI) | payer MEDICAID ==
[~2023-07-17] VITALS: Ht 182.9 cm; Wt 64.5 kg
[2023-07-18] MEDS ORDERED: FERR325T18 PO (08:58)
[2023-07-18] MEDS ORDERED: ASPI-999 PO (08:58)
[2023-07-18] MEDS ORDERED: FAMO-356 PO (08:58)
[2023-07-18] MEDS ORDERED: POTA10CA84 PO (08:58)
[2023-07-18] MEDS ORDERED: CLOP-31 PO (08:58)
[2023-07-18] MEDS ORDERED: CYAN100071 PO (08:58)
[2023-07-18] MEDS ORDERED: MAGN400T7 PO (08:58)
[2023-07-18] MEDS ORDERED: ACET325C7 PO (08:58)
[2023-07-18] MEDS ORDERED: ASCO250T16 PO (08:58)
[2023-07-18] MEDS ORDERED: MIRT7.5T8 PO (08:58)
[2023-07-18] MEDS ORDERED: ACHD5005 PO (14:11)
== END 2023-07-18 09:35 | disposition home or self-care (01) ==
LOC: PREOP 12:44
PROVIDERS: ATTEND Surgery
DX: Z01.818 Encounter for other preprocedural examination (principal)